=== PATIENT | male | born 1955 | race Caucasian/White ===

== ENCOUNTER 2020-05-13 08:02 | Outpatient (REF) | payer OTHER, SELFPAY ==
[2020-05-13 08:50] LABS: MANUAL DIFF FLAG NO
[2020-05-13 08:53] LABS: Basophils Absolute Auto 0.1 X10*3/uL (0.0-0.2); Basophils Percent Auto 0.8 % (0-2); Eosinophils Absolute Auto 0.1 X10*3/uL (0.0-0.4); Eosinophils Percent Auto 1.6 % (0-4); Hematocrit 40.5 % (42-52); Hemoglobin 13.4 g/dl (14.0-18.0); Imm Gran Abs Auto 0.02 X10*3/uL (0.00-0.03); Imm Gran Pct Auto 0.3 % (0.0-0.4); Lymphocytes Absolute Auto 1.5 X10*3/uL (1.2-4.9); Mean Corpuscular HGB Conc 33.1 g/dl (31.0-36.0); Mean Corpuscular Volume 90.8 fL (80-98); Mean Platelet Volume 8.8 fL (9.4-12.4); Monocytes Absolute Auto 0.5 X10*3/uL (0.1-1.2); Monocytes Percent Auto 7.4 % (2-11); Neutrophils Absolute Auto 4.2 X10*3/uL (2.0-8.3); Neutrophils Percent Auto 65.9 % (45-73); Platelet Count 255 X10*3/uL (160-400); Red Blood Count 4.46 X10*6/uL (4.60-5.80); Red Cell Distribution Width 13.3 % (11.0-16.0); White Blood Count 6.3 X10*3/uL (4.8-10.8)
[2020-05-13 09:18] LABS: Alanine Aminotransferase 24 U/L (0-40); Albumin Level 4.5 g/dL (3.5-5.0); Alkaline Phosphatase 61 U/L (39-117); Anion Gap 13 (12-20); Aspartate Amino Transferase 18 U/L (5-37); Bilirubin Total 0.8 mg/dL (0.0-1.0); Blood Urea Nitrogen 13 mg/dL (9-16); Calcium 9.2 mg/dL (8.4-10.2); Carbon Dioxide 29 mmol/L (22-29); Chloride 103 mmol/L (96-108); Cholesterol 164 mg/dL; Estimated Glomerular Filt Rate > 60; Glucose Fasting 98 mg/dL (60-99); HDL Cholesterol 51 mg/dL; LDL Cholesterol Calculated 83 mg/dl; Potassium 4.5 mmol/l (3.3-5.1); Sodium 140 mmol/L (135-145); Triglycerides 152 mg/dL
[2020-05-13 09:41] LABS: Prostate Specific Antigen Scr 3.89 ng/mL (<0.05-4.0); T4 Thyroxine 5.3 ug/dL (4.5-12.0)
[2020-05-13 09:54] LABS: Folate 17.3 ng/mL (> or = 4.0); Vitamin B12 496 pg/mL (200-900)
== END 2020-05-13 08:03 | disposition home or self-care (01) ==
LOC: HO.LAB 08:02
PROVIDERS: PCP Internal Medicine; Visit Provider Internal Medicine
DX: I10 Essential (primary) hypertension (principal); E78.00 Pure hypercholesterolemia, unspecified; R73.02 Impaired glucose tolerance (oral); D64.9 Anemia, unspecified
CPT/HCPCS: 36415; 80053; 80061; 82607; 82746; 84153; 84436; 84443; 85025

== ENCOUNTER 2021-05-15 08:36 | Outpatient (REF) | payer OTHER, SELFPAY ==
[2021-05-15 09:05] LABS: MANUAL DIFF FLAG NO
[2021-05-15 09:38] LABS: Basophils Percent Auto 0.6 % (0-2); Eosinophils Absolute Auto 0.1 X10*3/uL (0.0-0.4); Eosinophils Percent Auto 1.7 % (0-4); Hematocrit 40.2 % (42.0-52.0); Hemoglobin 13.2 g/dl (14.0-18.0); Imm Gran Abs Auto 0.02 X10*3/uL (0.00-0.03); Imm Gran Pct Auto 0.3 % (0.0-0.4); Lymphocytes Absolute Auto 2.1 X10*3/uL (1.2-4.9); Lymphocytes Percent Auto 30.1 % (20-40); Mean Corpuscular HGB Conc 32.8 g/dl (31.0-36.0); Mean Corpuscular Hemoglobin 29.6 pg (27.0-33.0); Mean Corpuscular Volume 90.1 fL (80.0-98.0); Mean Platelet Volume 8.9 fL (9.4-12.4); Monocytes Absolute Auto 0.7 X10*3/uL (0.1-1.2); Monocytes Percent Auto 9.7 % (2-11); Neutrophils Percent Auto 57.6 % (45-73); Platelet Count 262 X10*3/uL (160-400); Red Blood Count 4.46 X10*6/uL (4.60-5.80); Red Cell Distribution Width 13.3 % (11.0-16.0)
[2021-05-15 10:01] LABS: Alanine Aminotransferase 28 U/L (0-40); Albumin Level 4.5 g/dL (3.5-5.0); Alkaline Phosphatase 70 U/L (39-117); Anion Gap 12 (12-20); Aspartate Amino Transferase 26 U/L (5-37); Bilirubin Total 1.1 mg/dL (0.0-1.0); Blood Urea Nitrogen 13 mg/dL (9-16); Calcium 9.6 mg/dL (8.4-10.2); Carbon Dioxide 30 mmol/L (22-29); Chloride 101 mmol/L (96-108); Cholesterol 158 mg/dL; Estimated Glomerular Filt Rate > 60; Glucose Random 91 mg/dL (60-115); HDL Cholesterol 48 mg/dL; LDL Cholesterol Calculated 87 mg/dl; Potassium 4.6 mmol/L (3.3-5.1); Sodium 138 mmol/L (135-145); Total Protein 7.1 g/dL (6.5-8.0); Triglycerides 119 mg/dL
[2021-05-15 10:25] LABS: Free T4 (Free Thyroxine) 0.87 ng/dL (0.71-1.85); Prostate Specific Antigen Scr 5.55 ng/mL (<0.05-4.0); Thyroid Stimulating Hormone 1.83 uIU/mL (0.32-4.0)
[2021-05-15 10:35] LABS: Folate > 20.0 ng/mL (> or = 4.0); Vitamin B12 439 pg/mL (200-900)
== END 2021-05-15 08:37 | disposition home or self-care (01) ==
LOC: HO.LAB 08:36
PROVIDERS: PCP Internal Medicine; Visit Provider Internal Medicine
DX: Z12.5 Encounter for screening for malignant neoplasm of prostate (principal); E78.00 Pure hypercholesterolemia, unspecified; I10 Essential (primary) hypertension
CPT/HCPCS: 36415; 80053; 80061; 82607; 82746; 84153; 84439; 84443; 85025

== ENCOUNTER 2021-05-19 09:02 | Outpatient (REF) | payer OTHER, SELFPAY ==
[2021-05-19 10:45] LABS: PSA,Total (Free>4and<10) 5.05 ng/mL (0.00-4.00)
[2021-05-20 12:41] LABS: Free Prostate Spec Ag 0.4 ng/mL; Percent Free Prostate Spec Ag 9 % (calc) (>25); Prostate Specific Ag Total 4.5 ng/mL (< OR = 4.0)
== END 2021-05-19 09:03 | disposition home or self-care (01) ==
LOC: HO.LAB 09:02
PROVIDERS: PCP Internal Medicine; Visit Provider Internal Medicine
DX: L40.50 Arthropathic psoriasis, unspecified (principal)
CPT/HCPCS: 36415; 84153; 84154

== ENCOUNTER 2022-05-18 08:50 | Outpatient (REF) | payer MEDICARE, OTHER, SELFPAY ==
[2022-05-18 09:07] LABS: MANUAL DIFF FLAG NO
[2022-05-18 09:54] LABS: Basophils Absolute Auto 0.1 X10*3/uL (0.0-0.2); Basophils Percent Auto 0.7 % (0-2); Eosinophils Absolute Auto 0.2 X10*3/uL (0.0-0.4); Eosinophils Percent Auto 3.2 % (0-4); Hematocrit 40.6 % (42.0-52.0); Hemoglobin 13.4 g/dl (14.0-18.0); Imm Gran Abs Auto 0.04 X10*3/uL (0.00-0.03); Imm Gran Pct Auto 0.6 % (0.0-0.4); Lymphocytes Percent Auto 28.2 % (20-40); Mean Platelet Volume 8.9 fL (9.4-12.4); Monocytes Absolute Auto 0.6 X10*3/uL (0.1-1.2); Monocytes Percent Auto 7.8 % (2-11); Neutrophils Absolute Auto 4.2 x10*3/uL (2.0-8.3); Neutrophils Percent Auto 59.5 % (45-73); Platelet Count 271 X10*3/uL (160-400); Red Blood Count 4.46 X10*6/uL (4.60-5.80); Red Cell Distribution Width 13.4 % (11.0-16.0); White Blood Count 7.1 X10*3/uL (4.8-10.8)
[2022-05-18 11:38] LABS: Alanine Aminotransferase 40 U/L (0-40); Albumin Level 4.4 g/dL (3.5-5.0); Alkaline Phosphatase 68 U/L (39-117); Anion Gap 13 (12-20); Aspartate Amino Transferase 21 U/L (5-37); Bilirubin Total 0.7 mg/dL (0.0-1.0); Blood Urea Nitrogen 13 mg/dL (9-16); Calcium 9.3 mg/dL (8.4-10.2); Carbon Dioxide 29 mmol/L (22-29); Chloride 103 mmol/L (96-108); Cholesterol 198 mg/dL; Estimated Glomerular Filt Rate > 60; Free T4 (Free Thyroxine) 0.89 ng/dL (0.71-1.85); Glucose Random 91 mg/dL (60-115); HDL Cholesterol 47 mg/dL; LDL Cholesterol Calculated 109 mg/dl; Potassium 4.8 mmol/L (3.3-5.1); Prostate Specific Antigen Scr 5.24 ng/mL (<0.05-4.0); Sodium 140 mmol/L (135-145); Thyroid Stimulating Hormone 1.61 uIU/mL (0.32-4.0); Total Protein 6.9 g/dL (6.5-8.0); Triglycerides 211 mg/dL
[2022-05-18 11:49] LABS: Folate 15.1 ng/mL (> or = 4.0); Vitamin B12 444 pg/mL (200-900)
== END 2022-05-18 08:51 | disposition home or self-care (01) ==
LOC: HO.LAB 08:50
PROVIDERS: PCP Internal Medicine; Visit Provider Internal Medicine
DX: Z12.5 Encounter for screening for malignant neoplasm of prostate (principal); E78.00 Pure hypercholesterolemia, unspecified
CPT/HCPCS: 36415; 80053; 80061; 82607; 82746; 84153; 84439; 84443; 85025

== ENCOUNTER 2022-12-28 11:56 | Outpatient (REF) | payer MEDICARE, OTHER, SELFPAY ==
[2022-12-28 12:43] LABS: Basophils Percent Auto 0.5 % (0-2); Eosinophils Absolute Auto 0.1 X10*3/uL (0.0-0.4); Eosinophils Percent Auto 1.8 % (0-4); Hematocrit 43.7 % (42.0-52.0); Hemoglobin 14.1 g/dl (14.0-18.0); Imm Gran Abs Auto 0.03 X10*3/uL (0.00-0.03); Imm Gran Pct Auto 0.4 % (0.0-0.4); Immature Retic Fraction 16.1 % (2.3-13.4); Lymphocytes Absolute Auto 1.9 X10*3/uL (1.2-4.9); Lymphocytes Percent Auto 25.1 % (20-40); MANUAL DIFF FLAG SCAN; Mean Corpuscular HGB Conc 32.3 g/dl (31.0-36.0); Mean Corpuscular Hemoglobin 29.3 pg (27.0-33.0); Mean Corpuscular Volume 90.9 fL (80.0-98.0); Monocytes Absolute Auto 0.5 X10*3/uL (0.1-1.2); Monocytes Percent Auto 6.4 % (2-11); Neutrophils Absolute Auto 4.9 x10*3/uL (2.0-8.3); Neutrophils Percent Auto 65.8 % (45-73); PLT CLUMP 1; Red Blood Count 4.81 X10*6/uL (4.60-5.80); Red Cell Distribution Width 13.2 % (11.0-16.0); Retic HGB Equivalent 35.5 pg (30.0-35.0); Reticulocytes Absolute 0.049 X10*6/uL (0.026-0.095); SCAN SMEAR FLAG 1
[2022-12-28 12:55] LABS: RET ABN SCTR 1
[2022-12-28 13:30] LABS: SLIDE REVIEW VERIFIED
[2022-12-28 13:31] LABS: White Blood Count 7.4 X10*3/uL (4.8-10.8)
[2022-12-28 13:40] LABS: Alanine Aminotransferase 25 U/L (0-40); Albumin Level 4.6 g/dL (3.5-5.0); Alkaline Phosphatase 73 U/L (39-117); Anion Gap 13 (12-20); Aspartate Amino Transferase 19 U/L (5-37); Bilirubin Total 0.4 mg/dL (0.0-1.0); Blood Urea Nitrogen 11 mg/dL (9-16); Calcium 10.1 mg/dL (8.4-10.2); Carbon Dioxide 29 mmol/L (22-29); Chloride 103 mmol/L (96-108); Cholesterol 179 mg/dL; Estimated Glomerular Filt Rate > 60; Glucose Random 86 mg/dL (60-115); HDL Cholesterol 51 mg/dL; Iron 56 mcg/dL (45-160); LDL Cholesterol Calculated 100 mg/dl; Percent Iron Saturation 15 % (15-50); Potassium 4.2 mmol/L (3.3-5.1); Sodium 141 mmol/L (135-145); Total Iron Binding Capacity 374 mcg/dL (228-428); Total Protein 7.5 g/dL (6.5-8.0); Triglycerides 143 mg/dL; Unsaturated Iron Binding 318 ug/dL
[2022-12-28 13:53] LABS: Ferritin 29 ng/mL (20-250); Thyroid Stimulating Hormone 2.12 uIU/mL (0.32-4.0)
[2022-12-28 13:57] LABS: Folate 14.9 ng/mL (> or = 4.0); Vitamin B12 577 pg/mL (200-900)
== END 2022-12-28 11:57 | disposition home or self-care (01) ==
LOC: HO.LAB 11:56
PROVIDERS: PCP Internal Medicine; Visit Provider Internal Medicine
DX: I10 Essential (primary) hypertension (principal); E78.00 Pure hypercholesterolemia, unspecified; D64.9 Anemia, unspecified
CPT/HCPCS: 36415; 80053; 80061; 82607; 82728; 82746; 83540; 84439; 84443; 85025; 85045

== ENCOUNTER 2023-01-15 13:05 | Outpatient (AMB) | payer MEDICARE, OTHER, SELFPAY ==
[2023-01-15 13:37] VITALS: BP 148/70; PULSE 67; O2SAT 99; BMI 28.7
--- NOTE | 2023-01-15 13:37 | A.OFFPC_ITS ---
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 Required: No Allergies No Known Allergies Allergy (Verified 01/15/23 13:56) Medication List - Last Reconciled 01/15/23 by KALEIGH Leyva amoxicillin 500 mg PO Q8H ascorbic acid (vitamin C) 1 g PO DAILY atorvastatin 10 mg PO DAILY enalapril maleate 10 mg PO DAILY hydrochlorothiazide 12.5 mg PO DAILY osrzskyyqgfu-vmsf-vnsbi acid 18-400 mg-mcg (Centrum) 1 tab PO DAILY omega-3 fatty acids 1,000 mg PO DAILY psyllium husk (Metamucil) 0.4 grams PO BEDTIME Tobacco use date assessed: 01/15/23 Fall risk assessment: No Falls in past year Last assessed Fall Risk: 01/15/23 Dental Screening Dental Screen Date: 01/15/23 HPI sciatic nerve Pain On right Leg HPI Details Patient is a 67-year-old male presents today for an office visit due to right buttock pain that radiates down to his right anterior bah for the past [address] Contreras. Medical history significant for hypertension, hypercholesterolemia, osteoarthritis, prostate cancer-status post prostate removal surgery 09/2022-reports urinary incontinence after surgery. Patient reports that he worked physically about 1 month ago when he started with this right buttock pain. Presently pain 5/10 scale, pain worse with activity. He did use ice/heat packs and ibuprofen with mild improvement. Reports some numbness right anterior bah area. No fever or chills, no headache, no extremities weakness. [facility] Medical History Finger fracture, right Hypercholesterolemia Hypertension Nephrolithiasis Osteoarthritis Overweight (BMI 25.0-29.9) PSA elevation Surgical History History of tonsillectomy Family History Mother Bladder cancer Father Prostate cancer Social History Housing: House Alcohol intake: former Patient Tobacco Use Status: Never used Tobacco e-Cigarette/Vaping Use: Never Used Second Hand Smoke Exposure: No Current occupational status: employed Cognitive needs: No Hearing needs: No Vision needs: Yes Questionnaire PHQ-9 Over the last 2 weeks, how often have you been bothered by any of the following problems? 1. Little interest or pleasure in doing things: not at all 2. Feeling down, depressed, or hopeless: not at all 3. Trouble falling or staying asleep, or sleeping too much: not at all 4. Feeling tired or having little energy: not at all 5. Poor appetite or overeating: not at all 6. Feeling bad about yourself - or that you are a failure or have let yourself or your family down: not at all 7. Trouble concentrating on things, such as reading the newspaper or watching television: not at all 8. Moving or speaking so slowly that other people could have noticed. Or the opposite - being so fidgety or restless that you have been moving around a lot more than usual: not at all 9. Thoughts that you would be better off or of hurting yourself in some way: not at all Total score: 0 Depression Screening Interpretation: Negative 36682 - PHQ-9 Billing: Yes Source: Developed by Drs. Quirino Coats, Radha Reed, Bruno Reeves and colleagues, with an educational marleen from [employer]. Thrive Questionnaire Date Thrive assessed: 11/23/22 AUDIT C Alcohol Use Questionnaire (AUDIT-C) 1. How often do you have a drink containing alcohol?: Monthly or less 2. How many drinks containing alcohol do you have on a typical day when you are drinking?: 1 or 2 3. How often do you have six or more drinks on one occasion?: Never Total Score: 1 Score Reviewed/Action Taken: No TIANNA-7 AMB Questionnaire TIANNA-7 Date TIANNA - 7 assessed: 11/23/22 Feeling nervous, anxious, or on edge: 0 = Not at all Not being able to stop or control worryin = Not at all Worrying too much about different things: 0 = Not at all Trouble relaxin = Not at all Being so restless that it is hard to sit still: 0 = Not at all Becoming easily annoyed or irritable: 0 = Not at all Feeling afraid as if something awful might happen: 0 = Not at all Total TIANNA-7 score (0-4 normal; 5-9 mild; 10-14 moderate; 15-21 severe): 0 Source: Developed by Drs. Quirino Coats, Radha Reed, Bruno Reeves and colleagues, with an educational marleen from [employer]. TIANNA-7 Assessment Billing TIANNA-7 Assessment Tool: TIANNA-7 Assessment 85911 Review of Systems Const Denies body aches, Denies chills, Denies fever(s) and Denies headache(s) Eyes Denies change in vision ENT Denies dizziness, Denies otalgia, Denies headache(s), Denies nasal discharge, Denies sinus pain and Denies sore throat Card Denies chest pain, Denies edema, Denies lightheadedness and Denies dyspnea Resp Denies cough, Denies dyspnea and Denies wheezing GI Denies constipation, Denies diarrhea, Denies nausea and Denies vomiting Denies dysuria and Reports urinary incontinence (Since 09/2022) Musc Reports back pain, Denies myalgias, Denies arthralgias, Denies joint swelling, Reports numbness and Denies tingling Skin/Breast Denies rash Neuro Denies dizziness, Denies headache(s), Reports numbness and Denies tingling Aller/Immun Denies wheezing Physical exam (Primary Care) Vital Signs: Last Vital Signs Pulse 67 01/15/23 13:37 BP 148/70 H 01/15/23 13:37 Pulse Ox 99 01/15/23 13:37 Oxygen Delivery Method Room Air 01/15/23 13:37 BMI result Body Mass Index 28.7 Tobacco/Smoking Status: Tobacco use Status Tobacco use date assessed 01/15/23 01/15/23 13:39 Patient Tobacco Use Status Never used Tobacco 01/15/23 13:39 e-Cigarette/Vaping Use Never Used 01/15/23 13:39 PHQ-9: PHQ-9 Score PHQ-9: Total score 0 01/15/23 13:47 Depression Screening Interpretation: Negative Thrive Assessment: Date of Thrive Assessment Date Thrive assessed 11/23/22 01/15/23 13:39 Const General: cooperative and no acute distress Orientation/consciousness: patient oriented x3 HENMT Head: Yes normocephalic and Yes atraumatic Mouth: oropharynx normal and moist mucous membranes Throat: Yes posterior oropharynx normal Eyes General: appearance normal, both eyes and all related structures Pupils: Equal, round and reactive pupils present Neck Neck: Yes normal visual inspection and Yes full ROM Resp Effort & Inspection: normal respiratory effort and able to speak in complete sentences Auscultation: clear to auscultation bilaterally, no crackles, no rales, no rhonchi and no wheezes Cardio Rate: regular rate Rhythm: regular rhythm Heart sounds: S1 normal heart sound present and S2 normal heart sound present GI Auscultation: normal bowel sounds General: No CVA tenderness Back/Spine/Pelvis Back: No CVA tenderness Thoracic/Lumbar Spine: thoraco-lumbar ROM normal, No paraspinal muscle tenderness, No thoracic spinal tenderness, No lumbar spinal tenderness and straight leg raise positive (Right) Pelvis: no buttock tenderness Skin General skin exam: no rashes or lesions noted Neuro General: patient oriented x3 and CN's II-XI intact bilaterally Cranial nerves: Yes Equal, round and reactive pupils present Gait exam (Neuro): Normal gait present Extrem General: Yes full ROM and No edema Assessment and Plan Assessment & Plan (1) Sciatica, right side: Code(s): M54.31 - Sciatica, right side Plan: Suspect sciatica of right side, will treat with ibuprofen t.i.d. p.r.n. and cyclobenzaprine t.i.d. p.r.n.-educated about drowsiness. Will refer to physical therapy. Patient is to continue ice/heat packs p.r.n.. Signs and symptoms reviewed when to notify provider go to the emergency department. Patient agreed with the plan. Follow-up if no improvement after physical therapy. Orders: Orders PT Evaluation and Treatment Today M54.31 - Sciatica, right side Medications: New ibuprofen 400 mg PO Q8H PRN 20 tabs 0RF pain M54.31 - Sciatica, right side cyclobenzaprine 5 mg PO TID PRN 14 tabs 0RF muscle spasm M54.31 - Sciatica, right side Coding Level of Care Code Est Pt Level 3 (14266) Diagnoses Sciatica, right side M54.31 Additional Codes TIANNA-7 Assessment Billing - TIANNA-7 Assessment Tool: TIANNA-7 Assessment [id number] ([id number])
== END 2023-01-15 14:06 | disposition home or self-care (01) ==
PROVIDERS: PCP Internal Medicine; Visit Provider Nurse Practitioner Family
DX: M54.31 Sciatica, right side (principal)
CPT/HCPCS: 99213

== ENCOUNTER 2023-02-25 10:00 | Outpatient (RCR) | payer MEDICARE, OTHER, SELFPAY ==
--- NOTE | 2023-01-28 11:29 | MHC.PT.EP ---
[facility] [place] Office [place] Office [place] Office [address] Brittney Bundy [address] [phone] F: [phone] F: [phone] F: [phone] F: [phone] Physical Therapy Plan of Care Date of Evaluation: Date of Surgery: Diagnosis: sciatica R side Assessment: 67 y/o male referred to PT with R-sided sciatica. Of note, he underwent radical prostatectomy 09/2022 and had 2 weeks of rest with then gradual return to activity. S/s consistent with lumbar derangement and ? 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 Recommend PT 2x/week for 5 week sto address impairments, implement HEP, and optimize functional mobility. Frequency and Duration: The patient will be seen 2x/week for 5 weeks Short Term Goals: 3 weeks Compliant with HEP Pt will improve lumbar AROM to WNL to facilitate ADL's Container Maker Goals: 5 weeks I with HEP and self management of sx Pt will be able to walk > 20 min with pain < 3/10 Pt will be able to stand > 20min with pain < 3/10 Treatment Plan: Modalities to reduce pain, spasms and effusion. Manual therapy to restore motion and function. Therapeutic exercise to improve strength and flexibility. Neuromuscular re-education for posture and balance. Therapeutic activities to return to functional activities of daily living. Electronically signed by: Anita Aponte PT Please sign and return to therapist. Thank you for your referral.
--- NOTE | 2023-02-25 12:41 | MHC.PT.DC ---
[facility] [place] Office [place] Office [place] Office [address] Brittney Bundy [address] [phone] F: [phone] F: [phone] F: [phone] F: [phone] Physical Therapy Discharge Report Diagnosis: sciatica R side Date of Surgery: Date of Evaluation: 01/28/23 Date of Discharge: 02/25/23 Treatments to Date: 9 Cancellations to Date: 0 No Shows to Date: 0 Discharge Status: Achieved Goals Improved Function Independent with HEP Discharge Summary: Pt reports being able to take 4 flights of stairs to get to PT now. He reports no longer having pain and is able to walk, stand, mow the lawn, and other ADL's. He is I with HEP and is appropriate for d/c secondary to meeting all goals, I with HEP, and improved functional mobility. No further questions at this time. Electronically signed by: Anita Aponte PT Please sign and return to therapist. Thank you for your referral.
== END 2023-02-25 12:41 | disposition home or self-care (01) ==
LOC: HO.PT 10:00
PROVIDERS: PCP Internal Medicine; Visit Provider Nurse Practitioner Family
DX: M54.31 Sciatica, right side (principal)
CPT/HCPCS: 97110; 97112; 97161; 97530

== ENCOUNTER 2023-05-28 08:29 | Outpatient (AMB) | payer MEDICARE, OTHER, SELFPAY ==
--- NOTE | 2023-05-28 08:59 | MHC.PC.OV ---
Vital Signs 05/28/23 09:00 Height 5 ft 10 in Weight 209 lb 2 oz BMI 30.0 BP 128/72 Blood Pressure Location Lt brachial Position Sitting Respiration 17 Pulse 80 Pulse Source Palpation Intake Visit Reasons: Annual Exam Intake Note: Patient is here today for a physical. 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: No Accompanied by: Self / Same As Patient Allergies No Known Allergies Allergy (Verified 05/28/23 09:02) Medication List - Last Reconciled 05/28/23 by Raghu Contreras MD ascorbic acid (vitamin C) 1 g PO DAILY atorvastatin 10 mg PO DAILY enalapril maleate 10 mg PO DAILY hydrochlorothiazide 12.5 mg PO DAILY wbfbqhbtqjxj-awpw-dtvml acid 18-400 mg-mcg (Centrum) 1 tab PO DAILY omega-3 fatty acids 1,000 mg PO DAILY psyllium husk (Metamucil) 0.4 grams PO BEDTIME Tobacco use date assessed: 01/15/23 Fall risk assessment: No Falls in past year Last assessed Fall Risk: 05/28/23 Dental Screening Dental Screen Date: 05/28/23 Did you have a dental visit in the last 12 months?: Yes Did you have a dental problem in the last 6 months where you did not have access to dental care?: No Was dental information given to patient?: Patient has dentist HPI Annual Exam HPI Details 67-year-old obese male with a history of prostate cancer hypertension hypercholesterolemia last seen in November 2022 coming in for physical exam. Colonoscopy last done in February 2019. Review of the notes had COVID flu and RSV shots. Patient was seen by the nurse practitioner in January 2023 for sciatic nerve on the right leg sent for physical therapy and was given anti-inflammatory and muscle relaxer. back is better. has incontinence from the procedure but better [facility] Medical History Finger fracture, right Hypercholesterolemia Hypertension Nephrolithiasis Osteoarthritis Overweight (BMI 25.0-29.9) PSA elevation Surgical History History of tonsillectomy Family History Mother Bladder cancer Father Prostate cancer Social History Housing: House Alcohol intake: former Patient Tobacco Use Status: Never used Tobacco e-Cigarette/Vaping Use: Never Used Second Hand Smoke Exposure: No Current occupational status: employed Cognitive needs: No Hearing needs: No Vision needs: Yes Questionnaire Thrive Questionnaire Date Thrive assessed: 11/23/22 TIANNA-7 AMB Questionnaire TIANNA-7 Date TIANNA - 7 assessed: 11/23/22 Source: Developed by Drs. Quirino Coats, Radha Reed, Bruno Reeves and colleagues, with an educational marleen from [employer]. Review of Systems Const Denies poor appetite and Denies weakness Eyes Denies no additional complaints ENT Reports Normal hearing present, Denies dizziness, Denies nasal congestion, Denies tinnitus and Denies sore throat Card Denies chest pain, Denies syncope, Denies rapid heart rate and Denies dyspnea Resp Denies cough and Denies dyspnea GI Denies change in stool character, Reports constipation, Denies diarrhea, Denies nausea and Denies vomiting Denies dysuria and Denies urinary frequency Neuro Reports Normal hearing present, Denies confusion, Denies dizziness, Denies syncope and Denies weakness Psych Denies confusion Physical exam (Primary Care) Vital Signs: Last Vital Signs Pulse 80 05/28/23 09:00 Resp 17 05/28/23 09:00 BP 128/72 05/28/23 09:00 BMI result Body Mass Index 30.0 Tobacco/Smoking Status: Tobacco use Status Tobacco use date assessed 01/15/23 05/28/23 09:01 Patient Tobacco Use Status Never used Tobacco 05/28/23 09:01 e-Cigarette/Vaping Use Never Used 05/28/23 09:01 Thrive Assessment: Date of Thrive Assessment Date Thrive assessed 11/23/22 05/28/23 09:01 Const General: No confusion Orientation/consciousness: No confusion HENMT Head: Yes normocephalic Ears: external ears normal and TM's normal bilaterally Face and sinus: Yes normal facial exam Mouth: moist mucous membranes Throat: Yes tonsils normal Eyes Conjunctivae: conjunctivae normal Pupils: Equal, round and reactive pupils present and Pupil accommodation reflex normal Direct Ophthalmoscopy: normal light reflex Neck Neck: No lymphadenopathy Thyroid: Thyroid normal Chest Chest palpation & inspection: normal inspection of the chest Resp Effort & Inspection: normal respiratory effort and no audible wheezes Auscultation: clear to auscultation bilaterally, no crackles, no wheezes and lung sounds not diminished Cardio Rate: regular rate Rhythm: regular rhythm Peripheral pulses: radial pulses present and dorsalis pedis present GI Palpation (GI): no masses Auscultation: normal bowel sounds and normoactive bowel sounds Rectal Exam - Male: Yes deferred Skin General skin exam: no rashes or lesions noted Rashes: no rashes Neuro General: No confusion Cranial nerves: Yes Equal, round and reactive pupils present and Yes Normal hearing present Cognition (Neuro): normal cognition Gait exam (Neuro): Normal gait present Motor exam (neuro): 5/5 motor strength present throughout Deep tendon reflexes (DTR's): Right brachioradialis reflex intensity grade: 2+, Left brachioradialis reflex intensity grade: 2+, Right patellar reflex intensity grade: 2+ and Left patellar reflex intensity grade: 2+ Extrem General: No edema Assessment and Plan Assessment & Plan (1) Annual physical exam: Code(s): Z00.00 - Encounter for general adult medical examination without abnormal findings (2) Prostate cancer: Comment: March 2022, RALP 09/2022 Code(s): C61 - Malignant neoplasm of prostate Plan: Continue to follow-up with Urology (3) Hypertension: Code(s): I10 - Essential (primary) hypertension Qualifiers: Hypertension type: essential hypertension Qualified Code(s): I10 - Essential (primary) hypertension Plan: Continue with blood pressure medication. Decrease salt intake and exercise patient is on hydrochlorothiazide 12.5 mg once a day enalapril 10 mg once a day (4) Hypercholesterolemia: Code(s): E78.00 - Pure hypercholesterolemia, unspecified Plan: Avoid fried foods, chicken skin, eggs, butter margarine, pastries and meat. Be it pork or beef they have a lot of cholesterol LDL goal of less than 130 and triglyceride of Less than 150 patient on atorvastatin 10 mg once a day (5) Overweight (BMI 25.0-29.9): Code(s): E66.3 - Overweight Plan: Diet and exercise (6) Sciatica, right side: Code(s): M54.31 - Sciatica, right side Orders: Orders Complete Blood Count Auto Diff Today C61 - Malignant neoplasm of prostate Comprehensive Met. Panel Today C61 - Malignant neoplasm of prostate Free T4 (Free Thyroxine) Today E78.00 - Pure hypercholesterolemia, unspecified Vitamin B12 and Folate Today E78.00 - Pure hypercholesterolemia, unspecified PSA,Total (Free>4and<10) Today C61 - Malignant neoplasm of prostate Thyroid Stimulating Hormone Today E78.00 - Pure hypercholesterolemia, unspecified Lipid Panel Today E78.00 - Pure hypercholesterolemia, unspecified Coding Level of Care Code Est Pt Prev Care >65y(51239) Diagnoses Annual physical exam Z00.00 Prostate cancer C61 Essential hypertension I10 Hypertension type: essential hypertension Hypercholesterolemia E78.00 Overweight (BMI 25.0-29.9) E66.3 Sciatica, right side M54.31
[2023-05-28 09:00] VITALS: BP 128/72; PULSE 80; RESP 17
== END 2023-05-28 09:48 | disposition home or self-care (01) ==
PROVIDERS: Visit Provider Internal Medicine
DX: Z00.00 Encounter for general adult medical examination without abnormal findings (principal); C61 Malignant neoplasm of prostate; I10 Essential (primary) hypertension; E78.00 Pure hypercholesterolemia, unspecified; E66.3 Overweight; M54.31 Sciatica, right side
CPT/HCPCS: 99397

== ENCOUNTER 2023-11-29 09:33 | Outpatient (REF) | payer MEDICARE, OTHER, SELFPAY ==
[2023-11-29 09:47] LABS: MANUAL DIFF FLAG NO
[2023-11-29 10:42] LABS: Basophils Percent Auto 0.6 % (0-2); Eosinophils Absolute Auto 0.1 X10*3/uL (0.0-0.4); Eosinophils Percent Auto 2.1 % (0-4); Hematocrit 40.2 % (42.0-52.0); Hemoglobin 13.2 g/dl (14.0-18.0); Imm Gran Abs Auto 0.03 X10*3/uL (0.00-0.03); Imm Gran Pct Auto 0.5 % (0.0-0.4); Lymphocytes Absolute Auto 1.7 X10*3/uL (1.2-4.9); Lymphocytes Percent Auto 26.9 % (20-40); Mean Corpuscular HGB Conc 32.8 g/dl (31.0-36.0); Mean Corpuscular Hemoglobin 29.7 pg (27.0-33.0); Mean Corpuscular Volume 90.5 fL (80.0-98.0); Mean Platelet Volume 8.7 fL (9.4-12.4); Monocytes Absolute Auto 0.5 X10*3/uL (0.1-1.2); Monocytes Percent Auto 7.3 % (2-11); Neutrophils Absolute Auto 3.9 x10*3/uL (2.0-8.3); Neutrophils Percent Auto 62.6 % (45-73); Platelet Count 272 X10*3/uL (160-400); Red Blood Count 4.44 X10*6/uL (4.60-5.80); Red Cell Distribution Width 13.8 % (11.0-16.0); White Blood Count 6.2 X10*3/uL (4.8-10.8)
[2023-11-29 11:19] LABS: Alanine Aminotransferase 54 U/L (0-40); Albumin Level 4.3 g/dL (3.5-5.0); Alkaline Phosphatase 67 U/L (39-117); Anion Gap 12 (12-20); Aspartate Amino Transferase 33 U/L (5-37); Bilirubin Total 0.4 mg/dL (0.0-1.0); Blood Urea Nitrogen 13 mg/dL (9-16); Calcium 9.4 mg/dL (8.4-10.2); Carbon Dioxide 30 mmol/L (22-29); Chloride 103 mmol/L (96-108); Cholesterol 179 mg/dL (<200); Estimated Glomerular Filt Rate > 60; Glucose Random 89 mg/dL (60-115); HDL Cholesterol 47 mg/dL (>40); LDL Cholesterol Calculated 90 mg/dL (<100); Potassium 4.1 mmol/L (3.3-5.1); Sodium 141 mmol/L (135-145); Total Protein 7.1 g/dL (6.5-8.0); Triglycerides 214 mg/dL (<150)
[2023-11-29 11:27] LABS: PSA,Total (Free>4and<10) < 0.10 ng/mL (0.00-4.00)
[2023-11-29 11:30] LABS: Free T4 (Free Thyroxine) 0.76 ng/dL (0.71-1.85)
[2023-11-29 11:38] LABS: Folate 13.7 ng/mL (> or = 4.0); Vitamin B12 554 pg/mL (200-900)
== END 2023-11-29 09:34 | disposition home or self-care (01) ==
LOC: HO.LAB 09:33
PROVIDERS: PCP Internal Medicine; Visit Provider Internal Medicine
DX: E78.00 Pure hypercholesterolemia, unspecified (principal); C61 Malignant neoplasm of prostate; Z12.5 Encounter for screening for malignant neoplasm of prostate
CPT/HCPCS: 36415; 80053; 80061; 82607; 82746; 84153; 84439; 84443; 85025

== ENCOUNTER 2023-12-10 08:24 | Outpatient (AMB) | payer MEDICARE, OTHER, SELFPAY ==
[2023-12-10 08:33] VITALS: BP 138/72; PULSE 72; O2SAT 98; BMI 30.6
--- NOTE | 2023-12-10 08:33 | MHC.PC.OV ---
Vital Signs 12/10/23 08:33 Height 5 ft 10 in Weight 213 lb 0.4 oz BMI 30.6 BP 138/72 Blood Pressure Location Lt brachial Position Sitting Pulse 72 Pulse Source Pulse Oximeter Pulse Oximetry (%) 98 Oxygen Delivery Method Room Air Intake Visit Reasons: HTN, Cholesterol Allergies No Known Allergies Allergy (Verified 12/10/23 08:34) Tobacco use date assessed: 12/10/23 Fall risk assessment: No Falls in past year Last assessed Fall Risk: 12/10/23 Dental Screening Dental Screen Date: 12/10/23 Did you have a dental visit in the last 12 months?: Yes Did you have a dental problem in the last 6 months where you did not have access to dental care?: No Was dental information given to patient?: Patient has dentist HPI HTN, Cholesterol HPI Details 68-year-old obese male with prostate cancer with HTN, Cholesterol, last seen 05/2023 coming in for follow up. 6 days ago noted a mass on the R groin deny fall or trauma , no urianry symptoms. [facility] Medical History Finger fracture, right Hypercholesterolemia Hypertension Nephrolithiasis Osteoarthritis Overweight (BMI 25.0-29.9) PSA elevation Surgical History History of tonsillectomy Family History Mother Bladder cancer Father Prostate cancer Social History Housing: House Alcohol intake: former Patient Tobacco Use Status: Never used Tobacco e-Cigarette/Vaping Use: Never Used Second Hand Smoke Exposure: No Current occupational status: employed Cognitive needs: No Hearing needs: No Vision needs: Yes Questionnaire PHQ-9 Over the last 2 weeks, how often have you been bothered by any of the following problems? 1. Little interest or pleasure in doing things: not at all 2. Feeling down, depressed, or hopeless: not at all 3. Trouble falling or staying asleep, or sleeping too much: not at all 4. Feeling tired or having little energy: not at all 5. Poor appetite or overeating: not at all 6. Feeling bad about yourself - or that you are a failure or have let yourself or your family down: not at all 7. Trouble concentrating on things, such as reading the newspaper or watching television: not at all 8. Moving or speaking so slowly that other people could have noticed. Or the opposite - being so fidgety or restless that you have been moving around a lot more than usual: not at all 9. Thoughts that you would be better off or of hurting yourself in some way: not at all Total score: 0 Depression Screening Interpretation: Negative Depression Screening Done: Yes 36538 - PHQ-9 Billing: Yes Source: Developed by Drs. Quirino Coats, Bruno Alexis and colleagues, with an educational marleen from [employer]. Thrive Questionnaire Date Thrive assessed: 11/23/22 AUDIT C Alcohol Use Questionnaire (AUDIT-C) 1. How often do you have a drink containing alcohol?: Monthly or less 2. How many drinks containing alcohol do you have on a typical day when you are drinking?: 1 or 2 3. How often do you have six or more drinks on one occasion?: Never Total Score: 1 Score Reviewed/Action Taken: No TIANNA-7 AMB Questionnaire TIANNA-7 Date TIANNA - 7 assessed: 12/10/23 Feeling nervous, anxious, or on edge: 0 = Not at all Not being able to stop or control worryin = Not at all Worrying too much about different things: 0 = Not at all Trouble relaxin = Not at all Being so restless that it is hard to sit still: 0 = Not at all Becoming easily annoyed or irritable: 0 = Not at all Feeling afraid as if something awful might happen: 0 = Not at all Total TIANNA-7 score (0-4 normal; 5-9 mild; 10-14 moderate; 15-21 severe): 0 Source: Developed by Drs. Quirino Coats, Bruno Alexis and colleagues, with an educational marleen from [employer]. TIANNA-7 Assessment Billing TIANNA-7 Assessment Tool: TIANNA-7 Assessment 72692 Physical exam (Primary Care) Vital Signs: Last Vital Signs Pulse 72 12/10/23 08:33 BP 138/72 12/10/23 08:33 Pulse Ox 98 12/10/23 08:33 Oxygen Delivery Method Room Air 12/10/23 08:33 BMI result Body Mass Index 30.6 Tobacco/Smoking Status: Tobacco use Status Tobacco use date assessed 12/10/23 12/10/23 08:37 Patient Tobacco Use Status Never used Tobacco 12/10/23 08:37 e-Cigarette/Vaping Use Never Used 12/10/23 08:37 PHQ-9: PHQ-9 Score PHQ-9: Total score 0 12/10/23 08:37 Depression Screening Interpretation: Negative Thrive Assessment: Date of Thrive Assessment Date Thrive assessed 11/23/22 12/10/23 08:37 Const General: alert; No acute distress Eyes Conjunctivae: conjunctivae normal Resp Auscultation: clear to auscultation bilaterally Cardio Rate: regular rate Rhythm: regular rhythm GI Inspection: Yes normal to inspection Abdomen image: 1. 3 by 4 cm below the groin line mass , non tender irregular shaped mass Extrem General: Yes normal to inspection and No edema Assessment and Plan Assessment & Plan (1) Obesity (BMI 30.0-34.9): Code(s): E66.9 - Obesity, unspecified Plan: Diet and exercise (2) Hypertension: Code(s): I10 - Essential (primary) hypertension Qualifiers: Hypertension type: essential hypertension Qualified Code(s): I10 - Essential (primary) hypertension Plan: Continue with blood pressure medication. Decrease salt intake and exercise on enalapril 10 mg once a day hydrochlorothiazide 12.5 mg once a day (3) Hypercholesterolemia: Code(s): E78.00 - Pure hypercholesterolemia, unspecified Plan: Avoid fried foods, chicken skin, eggs, butter margarine, pastries and meat. Be it pork or beef they have a lot of cholesterol (4) Prostate cancer: Comment: March 2022, RALP 09/2022 Code(s): C61 - Malignant neoplasm of prostate Plan: Continue to follow-up with urology (5) Tubular adenoma of colon: Code(s): D12.6 - Benign neoplasm of colon, unspecified (6) Right groin mass: Code(s): R19.09 - Other intra-abdominal and pelvic swelling, mass and lump Plan: will refer to the surgeon Orders: Referrals General Surgery Referral R19.09 - Other intra-abdominal and pelvic swelling, mass and lump Gastroenterology Referral D12.6 - Benign neoplasm of colon, unspecified Coding Level of Care Code Est Pt Level 4 (78449) Diagnoses Obesity (BMI 30.0-34.9) E66.9 Essential hypertension I10 Hypertension type: essential hypertension Hypercholesterolemia E78.00 Prostate cancer C61 Tubular adenoma of colon D12.6 Right groin mass R19.09 Additional Codes TIANNA-7 Assessment Billing - TIANNA-7 Assessment Tool: TIANNA-7 Assessment [id number] ([id number])
== END 2023-12-10 09:19 | disposition home or self-care (01) ==
PROVIDERS: PCP Internal Medicine; Visit Provider Internal Medicine
DX: I10 Essential (primary) hypertension (principal); C61 Malignant neoplasm of prostate; E66.9 Obesity, unspecified; Z68.30 Body mass index [BMI] 30.0-30.9, adult; E78.00 Pure hypercholesterolemia, unspecified; D12.6 Benign neoplasm of colon, unspecified; R19.09 Other intra-abdominal and pelvic swelling, mass and lump
CPT/HCPCS: 99214

== ENCOUNTER 2023-12-27 07:56 | Outpatient (AMB) | payer MEDICARE, OTHER, SELFPAY ==
--- NOTE | 2023-12-27 08:09 | A.OFFVIS_ITS ---
Vital Signs 12/27/23 08:12 Height 5 ft 10 in Weight 214 lb BMI 30.7 BP 146/72 H Blood Pressure Location Rt brachial Position Sitting Pulse 74 Intake Visit Reasons: Intra-abdominal &pelvic swelling ? mass Intake Note: Patient referred by pcp Dr. Contreras for mass on Rt upper groin. First noticed 1m ago. Patient c/o: mild tenderness. Denies prior trauma. 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 Was incidental finding. He has no symptoms from it at present. Denies any fever, chills, night sweats, weight loss. He has no such masses elsewhere. Chart was reviewed and patient evaluated. Patient is status post robotic prostate surgery approximately year and a half ago. [facility] Medical History PSA elevation Overweight (BMI 25.0-29.9) Finger fracture, right Nephrolithiasis Osteoarthritis Hypercholesterolemia Hypertension Surgical History History of tonsillectomy Family History Mother Bladder cancer Father Prostate cancer Social History Housing: House Alcohol intake: former Patient Tobacco Use Status: Never used Tobacco e-Cigarette/Vaping Use: Never Used Second Hand Smoke Exposure: No Current occupational status: employed Cognitive needs: No Hearing needs: No Vision needs: Yes Physical Exam Vital Signs: Last Vital Signs Pulse 74 12/27/23 08:12 BP 146/72 H 12/27/23 08:12 BMI result Body Mass Index 30.7 GI Other: Patient is abdomen is examined standing with Valsalva. Corpulent abdomen. Prostatectomy scar is well healed. No evidence of any umbilical or groin hernias. Genitalia grossly within normal limits. Skin Other: No obvious periclavicular, cervical, or axillary adenopathy bilaterally. Extrem Other: Over the femoral triangle, patient has a deep soft tissue mass measuring approximately 5 x 4 cm, firm, not adhered to the overlying skin but appeared to be adherent to the underlying soft tissues. No overlying skin changes. Assessment & Plan Assessment & Plan (1) Right groin mass: Code(s): R19.09 - Other intra-abdominal and pelvic swelling, mass and lump Category: Surgical Plan Current plan is to arrange for an MRI of this area and direct further therapy based on the results. This can range from eating from a collection of lymph nodes to a sarcoma. This was briefly reviewed with the patient. Further interventions studies will be directed by the above-mentioned study. All questions answered. Orders: Orders MR angio LE RT wo/w con Today R19.09 - Other intra-abdominal and pelvic swelling, mass and lump Coding Level of Care Code New Pt Level 4 (31566) Diagnoses Right groin mass R19.09
[2023-12-27 08:12] VITALS: BP 146/72; PULSE 74; BMI 30.7
== END 2023-12-27 08:17 | disposition home or self-care (01) ==
PROVIDERS: PCP Internal Medicine; Referring Provider Internal Medicine; Visit Provider Surgery
DX: R19.09 Other intra-abdominal and pelvic swelling, mass and lump (principal)
CPT/HCPCS: 99203

== ENCOUNTER → 2023-12-27 07:56 | Outpatient (BNVA) | payer MEDICARE, OTHER, SELFPAY | PROVIDERS: PCP Internal Medicine; Referring Provider Internal Medicine; Visit Provider Surgery | DX: R19.09 Other intra-abdominal and pelvic swelling, mass and lump (principal) | CPT/HCPCS: 99202 ==

== ENCOUNTER 2024-01-31 09:27 | Outpatient (REF) | payer MEDICARE, OTHER, SELFPAY ==
--- NOTE | ~2024-01-31 | MR_ITS ---
EXAMINATION: MR PELVIS WITHOUT AND WITH CONTRAST CLINICAL INFORMATION: Status post prostatectomy in 2022, now complains of left inguinal discomfort and palpable lump COMPARISON: CT scan of abdomen and pelvis on 08/05/2011 TECHNIQUE: Examination was performed in a high field strength MRI scanner. Pre-contrast multiplanar multisequence MR imaging of the pelvis was performed without IV contrast enhancement. Post-contrast coronal, axial and sagittal T1 weighted fat suppressed images of the pelvis were obtained after IV injection of 10 mL Gadavist. FINDINGS: Seminal vesicles and prostate gland are surgically absent. No focal bosselation could be seen at the urethrovesical anastomosis. Markedly enlarged enhancing clustered medial right inguinal lymph nodes are partially visualized, measuring up to 3.8 cm in AP diameter, 4.2 cm in width in the largest inferior right inguinal lymph node. The surrounding right inguinal subcutaneous tissue shows extensive T2 hyperintense and enhancing soft tissue stranding. Urinary bladder is well filled with urine. Pelvic fat plane is clean. No pelvic ascites is seen. No abnormally enlarged iliac or inguinal lymph nodes are found. The pelvis and bilateral hips are intact. Bilateral femoral heads and necks show normal signal without focal lesion. No abnormal joint effusion can be seen. The visualized bony pelvis show normal signal. Bilateral sacroiliac joints also appear unremarkable. There is interval appearance of 1.3 cm right upper renal pole simple cyst and larger 2.4 cm right lower medial renal pole simple cyst, for which no follow-up imaging is recommended. Normal appendix is seen projecting medial and inferior to the cecum. Multiple diverticula are seen in the sigmoid colon without inflammatory changes. There is mild fecal distention of distal sigmoid colon and rectum. MR/MR pelvis wo/w con IMPRESSION: 1. Status post prostatectomy. No recurrent tumor could be seen. 2. Velocities right inguinal lymphadenopathy. The surrounding right inguinal subcutaneous tissue shows extensive T2 hyperintense and enhancing soft tissue stranding. Findings are concerning for metastatic disease, reactive lymphadenopathy or infective lymphadenitis. 3. Sigmoid diverticulosis without inflammatory changes. 4. Interval appearance of right renal simple cysts, for which no follow-up imaging is recommended. Electronically signed by: Guadalupe Ji MD 02/09/2024 03:27 PM EDT
[2024-01-31] MEDS: gadobutroL 10 ML VIAL IVPUSH (10:35)
== END 2024-01-31 09:28 | disposition home or self-care (01) ==
LOC: HO.MRI 09:27
PROVIDERS: PCP Internal Medicine; Visit Provider Surgery
DX: R19.09 Other intra-abdominal and pelvic swelling, mass and lump (principal)
CPT/HCPCS: 72197; A9585

== ENCOUNTER 2024-02-08 08:43 | Outpatient (AMB) | payer MEDICARE, OTHER, SELFPAY ==
[2024-02-08 08:51] VITALS: BP 132/73; PULSE 70; BMI 30.1
--- NOTE | 2024-02-08 08:51 | A.OFFVIS_ITS ---
Vital Signs 02/08/24 08:51 Height 5 ft 10 in Weight 210 lb BMI 30.1 BP 132/73 Blood Pressure Location Rt brachial Position Sitting Pulse 70 Intake Visit Reasons: MRI results Intake Note: Patient here to discuss MRI results. Pelvis MRI 01-31-24. 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 MRI was done on 01/30 but is still not read.. Patient has no new issues or complaint [facility] Medical History PSA elevation Overweight (BMI 25.0-29.9) Finger fracture, right Nephrolithiasis Osteoarthritis Hypercholesterolemia Hypertension Surgical History History of tonsillectomy Family History Mother Bladder cancer Father Prostate cancer Social History Housing: House Alcohol intake: former Patient Tobacco Use Status: Never used Tobacco e-Cigarette/Vaping Use: Never Used Second Hand Smoke Exposure: No Current occupational status: employed Cognitive needs: No Hearing needs: No Vision needs: Yes Physical Exam Vital Signs: Last Vital Signs Pulse 70 02/08/24 08:51 BP 132/73 02/08/24 08:51 BMI result Body Mass Index 30.1 Extrem Other: Right upper inner thigh soft tissue mass status quo. Office Procedures FNA Biopsy FNA Biopsy Details: Risks, benefits alternatives of fine-needle aspiration of right groin mass were reviewed with the patient and included but not limited to bleeding, infection, non diagnosis, numbness, pain, scarring the patient wished to proceed. All questions answered. After appropriate positioning, patient underwent Betadine prep and uneventful multiple passes with 18 gauge needle with saline with good specimen retrieved. This was placed in a canister and sent to pathology. Dressing placed. Patient tolerated procedure well. FNA Biopsy 1: 55157-VQH Biopsy, 1st lesion w/o image FNA Biopsy 2: 64505-JAG Biopsy, additional lesion w/o image All charges added?: Procedure code (CPT) selection complete Assessment & Plan Assessment & Plan (1) Right groin mass: Code(s): R19.09 - Other intra-abdominal and pelvic swelling, mass and lump Category: Surgical Plan: Patient will see me in the proximal weeks time. Hopefully by then we will have an official reading of MRI as well as pathology results from FNA. Patient has been given local instructions including avoiding strenuous activities, ice to the wound periodically and will follow-up as directed or p.r.n. Orders: Orders Surgical Today R19.09 - Other intra-abdominal and pelvic swelling, mass and lump Biopsy - Fine needle aspiration Today R19.09 - Other intra-abdominal and pelvic swelling, mass and lump Coding Level of Care Code Est Pt Level 5 (09563) Diagnoses Right groin mass R19.09 CPT Codes FNA Biopsy - FNA Biopsy 1: 38752-DMR Biopsy, 1st lesion w/o image ([id number]) FNA Biopsy - FNA Biopsy 2: 20884-MPE Biopsy, additional lesion w/o image ([id number])
== END 2024-02-08 09:24 | disposition home or self-care (01) ==
PROVIDERS: PCP Internal Medicine; Visit Provider Surgery
DX: R19.09 Other intra-abdominal and pelvic swelling, mass and lump (principal)
CPT/HCPCS: 10021; 99214

== ENCOUNTER 2024-02-08 08:43 | Outpatient (REF) | payer MEDICARE, OTHER, SELFPAY | END 2024-02-08 08:44 | disposition home or self-care (01) | LOC: HO.LNP 08:43 | PROVIDERS: PCP Internal Medicine; Visit Provider Surgery | DX: C43.71 Malignant melanoma of right lower limb, including hip (principal) | CPT/HCPCS: 10021; 81210; 88304; 88305; 88341; 88342; 88344; 88360; 99212 ==

== ENCOUNTER 2024-02-15 10:43 | Outpatient (AMB) | payer MEDICARE, OTHER, SELFPAY ==
--- NOTE | 2024-02-15 10:56 | A.OFFVIS_ITS ---
Vital Signs 02/15/24 11:00 Height 5 ft 10 in Weight 211 lb BMI 30.3 BP 142/71 H Blood Pressure Location Rt brachial Position Sitting Pulse 69 Intake Visit Reasons: folllow up Intake Note: Patient here s/p fine needle aspiration bx on Rt groin. Patient c/o: site feels tender to touch. Structures Technician Required: No Accompanied by: Self / Same As Patient Allergies No Known Allergies Allergy (Verified 02/15/24 11:00) HPI Comments Details: Patient presents for follow-up. Final pathology still pending. I spoke with Dr. Zamora, pathologist and he is still evaluating the specimen. He thinks he can make a diagnosis with what he received. In the meantime, the the preliminary findings are suggestive of perhaps a melanoma. Patient has no history of melanoma or any skin cancers himself. [facility] Medical History PSA elevation Overweight (BMI 25.0-29.9) Finger fracture, right Nephrolithiasis Osteoarthritis Hypercholesterolemia Hypertension Surgical History History of tonsillectomy Family History Mother Bladder cancer Father Prostate cancer Social History Housing: House Alcohol intake: former Patient Tobacco Use Status: Never used Tobacco e-Cigarette/Vaping Use: Never Used Second Hand Smoke Exposure: No Current occupational status: employed Cognitive needs: No Hearing needs: No Vision needs: Yes Physical Exam Vital Signs: Last Vital Signs Pulse 69 02/15/24 11:00 BP 142/71 H 02/15/24 11:00 BMI result Body Mass Index 30.3 Extrem Other: Right groin mass is status quo. Right lower extremity was evaluated in its entirety and no evidence of any suspicious skin pigmentation or lesions also abdomen buttock and scrotal areas were evaluated with no obvious pathology demonstrated to explain patient's right groin mass. Assessment & Plan Assessment & Plan (1) Right groin mass: Code(s): R19.09 - Other intra-abdominal and pelvic swelling, mass and lump Category: Surgical Plan Current plan is to wait further pathology evaluation and direct further studies and interventions based on this. Patient understands this. All questions a nswered. He will be contacted by me once we have final pathology results. Coding Level of Care Code Est Pt Level 4 (67954) Diagnoses Right groin mass R19.09
[2024-02-15 11:00] VITALS: BP 142/71; PULSE 69; BMI 30.3
== END 2024-02-15 11:19 | disposition home or self-care (01) ==
PROVIDERS: PCP Internal Medicine; Visit Provider Surgery
DX: R19.09 Other intra-abdominal and pelvic swelling, mass and lump (principal)
CPT/HCPCS: 99214

== ENCOUNTER → 2024-02-15 10:43 | Outpatient (BNVA) | payer MEDICARE, OTHER, SELFPAY | PROVIDERS: PCP Internal Medicine; Visit Provider Surgery | DX: R19.09 Other intra-abdominal and pelvic swelling, mass and lump (principal) | CPT/HCPCS: 99212 ==

== ENCOUNTER → 2024-03-20 13:00 | Outpatient (BNV) | payer MEDICARE, OTHER, SELFPAY | PROVIDERS: PCP Internal Medicine; Referring Provider Surgery; Visit Provider Internal Medicine | DX: C43.71 Malignant melanoma of right lower limb, including hip (principal); Z85.46 Personal history of malignant neoplasm of prostate | CPT/HCPCS: 99205; 99213; 99214; G2211 ==

== ENCOUNTER 2024-03-20 13:51 | Outpatient (AMB) | payer MEDICARE, OTHER, SELFPAY ==
--- NOTE | 2024-03-20 13:52 | A.OFFVIS_ITS ---
Intake Visit Reasons: s/p PET scan Intake Note: Patient here to discuss Rt ant thigh bx results. Reports incision healing well. Die Barber Required: No Accompanied by: Self / Same As Patient Allergies No Known Allergies Allergy (Verified 03/20/24 13:54) HPI Comments Details: Patient was seen by Oncology earlier today . He presents for follow-up regarding his recent PET scan. Patient has what appears to be extensive metastatic melanoma. He will undergo further staging her Oncology. [facility] Medical History PSA elevation Overweight (BMI 25.0-29.9) Finger fracture, right Nephrolithiasis Osteoarthritis Hypercholesterolemia Hypertension Surgical History History of tonsillectomy Family History Mother Bladder cancer Father Prostate cancer Social History Household Members: None and Other Housing: House Alcohol intake: former Patient Tobacco Use Status: Never used Tobacco e-Cigarette/Vaping Use: Never Used Second Hand Smoke Exposure: No service: Yes Current occupational status: employed Sexual orientation: Straight/Heterosexual Gender identity: Male Cognitive needs: No Hearing needs: No Vision needs: Yes Physical Exam GI Other: Exam is status quo Assessment & Plan Assessment & Plan (1) Melanoma: Comment: Right thigh mass January 2024 Code(s): C43.9 - Malignant melanoma of skin, unspecified Category: Surgical Plan At present, patient will complete his metastatic workup for oncology. Should he require Port-A-Cath, patient was instructed to call us and we will arrange for placement for his immunotherapy in the future. All questions answered. Coding Level of Care Code Est Pt Level 4 (61530) Diagnoses Melanoma C43.9
== END 2024-03-20 14:18 | disposition home or self-care (01) ==
LOC: HO.HGS 13:51
PROVIDERS: PCP Internal Medicine; Visit Provider Surgery
DX: C43.9 Malignant melanoma of skin, unspecified (principal)
CPT/HCPCS: 99214

== ENCOUNTER → 2024-03-20 13:51 | Outpatient (BNVA) | payer MEDICARE, OTHER, SELFPAY | PROVIDERS: PCP Internal Medicine; Visit Provider Surgery | DX: C43.9 Malignant melanoma of skin, unspecified (principal) | CPT/HCPCS: 99212 ==

== ENCOUNTER 2024-03-21 13:23 | Outpatient (REF) | payer MEDICARE, OTHER, SELFPAY ==
--- NOTE | ~2024-03-21 | CT_ITS ---
EXAMINATION: CT CHEST WITH CONTRAST CLINICAL INFORMATION: Malignant melanoma, staging examination . COMPARISON: No prior chest CT. Abdomen and pelvis CT performed concurrently. Please refer to that report, dictated separately. TECHNIQUE: Multidetector volumetric CT imaging of the chest was obtained after the administration of 85 mL of Omnipaque 350 intravenous contrast without immediate adverse reactions. Axial MIP volume rendering provided. Sagittal and coronal reformatted images were obtained. This CT examination was performed using dose optimization techniques as appropriate, variously including the following: *Automated exposure control *Adjustment of mA and/or kV according to patient size (this includes techniques or standardized protocols for targeted exams where dose is matched to indication/reason for exam; i.e. extremities or head) *Use of iterative reconstruction technique DLP: 171.3 mGy-cm FINDINGS: PULMONARY NODULES: -Average diameter 8 mm slightly irregular nodule anterior aspect apical segment right upper lobe (series 5, image 150). This finding is suspicious. -3 mm pleural-based nodule anterior right upper lobe (series 5, image 233). -2 mm subpleural nodule anterior right upper lobe (series 5, image 263). -There are 2 linear nodules within the major fissure medially, consistent with intrapulmonary lymph nodes, maximally measuring 3 mm. -2 mm nodule superior segment left lower lobe anteriorly (series 5, image 233). LUNGS: -Mild scarring is present in the medial right lower lobe abutting large rightward projecting spinal osteophytes (series 4, image 40). -Lungs otherwise clear without evidence of consolidation or acute disease. -The trachea, central airways, and peripheral airways appear normal. -No pleural effusions, masses, or pneumothorax. MEDIASTINUM: -Numerous prominent lymph nodes are present in the superior and middle mediastinum. -For example, a lymph node just anterior to the left subclavian artery measures 1.1 x 1.7 cm axial plane (Series 3, image 13). -An immediately more inferior prevascular node measures approximately 0.9 x 1.6 cm. -Lymph node immediately anterior to the SVC measures 1.0 cm short axis (series 3, image 21). -Preaortic lymph node measures 1.0 cm in short axis (series 3, image 20). -A bilobed node situated in between the brachiocephalic veins measures approximately 1.1 x 1.5 cm (series 3, image 16). -Several smaller prevascular nodes are present. -Lymph node posterior to the descending aorta present measuring 0.7 x 1.3 cm (series 3, image 32).. -Heart size normal. No pericardial effusion. -There are mild to moderate three-vessel coronary calcifications. -Aorta normal in caliber and course with mild calcification. -Main pulmonary artery is normal in size. -Esophagus demonstrates presence of a small type I hiatus hernia at the GE junction. -There are no abnormal hilar lymph nodes. -Normal thyroid. AXILLA/CHEST WALL: -No masses or pathologic lymphadenopathy. -Minimal gynecomastia bilaterally. UPPER ABDOMEN: Refer to the dedicated CT abdomen pelvis. OSSEOUS STRUCTURES: -No suspicious lytic or blastic bone lesion. -There are unsegmented hemivertebra at T1, and T8-9. These result in an S-shaped scoliosis of the thoracic spine. CT/CT chest w IV con IMPRESSION: 1. Suspicious average diameter 8 mm nodule within the anterior aspect apical segment right upper lobe. No old imaging for comparison. Correlation with PET and/or biopsy is suggested. 2. Pathologic superior and middle mediastinal lymphadenopathy, largest node measuring 1.1 x 1.7 cm just anterior to the proximal left subclavian artery. 3. No additional suspicious pulmonary nodules. A few tiny 2 to 3 mm nodules are present. 4. Lungs are clear with no active pulmonary disease. 5. No additional lymphadenopathy or evidence of metastatic disease elsewhere or to bone. 6. 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 Findings communicated to Dr. Smalls via secure text at 12:18 PM, 03/31/2024 Fleischner guidelines were followed. Electronically signed by: Vern Plummer MD 03/31/2024 12:21 PM EDT
--- NOTE | ~2024-03-21 | CT_ITS ---
EXAMINATION: CT ABDOMEN AND PELVIS WITH CONTRAST CLINICAL INFORMATION: Staging malignant melanoma. COMPARISON: Prior CT 08/05/2011 is archived and will not load on PACS. MR pelvis with contrast 1924. TECHNIQUE: Multidetector volumetric images were obtained from the superior aspect of the liver through the pubic symphysis following administration 85 mL of Omnipaque 350 intravenous contrast. Sagittal and coronal reformatted images were obtained on the technologist's workstation. Oral contrast: No This CT examination was performed using dose optimization techniques as appropriate, variously including the following: *Automated exposure control *Adjustment of mA and/or kV according to patient size (this includes techniques or standardized protocols for targeted exams where dose is matched to indication/reason for exam; i.e. extremities or head) *Use of iterative reconstruction technique DLP: 440.9 mGy-cm FINDINGS: LUNG BASES: Refer to the concurrent chest CT report. LIVER, GALLBLADDER, AND BILIARY TREE: Diffuse fatty infiltration of the liver is present. In the hepatic dome, segment 8, there is 1.1 cm low density lesion, indeterminate. No additional liver abnormalities. No biliary dilatation. The gallbladder is unremarkable with no evidence of radiopaque gallstones, gallbladder wall thickening, or obvious pericholecystic inflammatory changes. PANCREAS: Normal. SPLEEN: There is a 1.0 cm enhancing oval nodule in the lateral superior spleen (series 3, image 16), suspicious. There are no additional splenic abnormalities. ADRENAL GLANDS: Mild diffuse thickening of the left adrenal, likely hyperplasia. Right adrenal normal. KIDNEYS AND URETERS: There are 2 simple cysts in the right kidney, the larger in the inferior pole measuring 2.5 cm. There are no suspicious renal lesions, hydronephrosis, calculi, or other abnormalities. The ureters are normal in course and caliber. BLADDER: Somewhat decompressed with minimal wall thickening, nonspecific. Prostatectomy noted. GASTROINTESTINAL TRACT: -Small hiatus hernia at the GE junction. -Stomach is somewhat decompressed but demonstrates some fundal wall thickening, nonspecific but possibly related to underdistention. -The duodenal sweep, small bowel, appendix, and colon demonstrate no acute abnormalities. There are a few colonic diverticula, most notable in the sigmoid. -No rectal abnormality. ABDOMINAL WALL: -Abnormal bulky lymphadenopathy in the right inguinal region as detailed below. LYMPH NODES: -There is bulky right inguinal, right external and internal iliac, right pelvic sidewall, and para-aortic retroperitoneal lymphadenopathy present, consistent with metastatic adelaida disease. -For example, a left para-aortic lymph node at the level of the duodenal C-loop measures 1.9 x 2.6 cm in axial plane. (Series 3, image 38). -A right aortocaval lymph node measures 1.8 cm in short axis (series 3, image 45). -A right common iliac node measures 2.0 cm in short axis (series 3, image 55). -Right pelvic sidewall lymph node measures 2.9 x 5.1 cm in axial plane (series 3, image 75). -External iliac right-sided lymph node measures 3.0 x 2.9 cm in axial plane (image 70). -Incompletely imaged bulky right inguinal and femoral lymphadenopathy present, with the largest node demonstrating central necrosis, measuring an estimated 5.9 x 4.2 cm in axial plane, however this is incompletely imaged. VASCULAR: -Aorta and major branches are normal in caliber with mild to moderate calcific atherosclerosis. -There is no evidence of venous thrombosis. There is mass effect upon the external and internal right iliac vein from lymphadenopathy. PELVIC VISCERA: Prostatectomy. Otherwise no abnormalities. OSSEOUS STRUCTURES: -T8-9 hemivertebra. -Subtle sclerotic foci in inferior L4, central L5 (8 mm), S1, and S2 are suspicious for metastatic disease to bone. -Mild degenerative changes bilateral hip joints. CT/CT abdomen pelvis w IV con IMPRESSION: 1. Bulky lymphadenopathy in the retroperitoneum, right pelvic sidewall, right external and internal iliac chains, and right inguinal and femoral chains. Findings are consistent with metastatic lymphadenopathy. 2. 1.0 cm enhancing splenic nodule, suspicious. 3. 1.1 cm nonspecific segment 8 liver hypoattenuating focus, indeterminate. 4. Bony metastases L4, L5, S1, S2. 5. Fatty infiltration of the liver. 6. Prostatectomy. 7. Sigmoid colonic diverticulosis. 8. Additional ancillary findings as discussed in the body of the report. 9. Refer to the dedicated chest CT for chest CT findings. Findings were discussed with Dr. Smalls via secure text at 12:59 PM, 03/31/2024 Electronically signed by: Vern Plummer MD 03/31/2024 01:00 PM EDT
[2024-03-21] MEDS: iohexoL 350 MG/ML 100 ML INFUS..BTL IV (14:18)
== END 2024-03-21 13:24 | disposition home or self-care (01) ==
LOC: HO.CT 13:23
PROVIDERS: PCP Internal Medicine; Visit Provider Internal Medicine
DX: C43.9 Malignant melanoma of skin, unspecified (principal)
CPT/HCPCS: 71260; 74177; Q9967

== ENCOUNTER 2024-03-21 13:23 | Outpatient (REF) | payer MEDICARE, OTHER, SELFPAY | END 2024-03-21 13:24 | disposition home or self-care (01) | LOC: HO.CT 13:23 | PROVIDERS: PCP Internal Medicine; Visit Provider Internal Medicine | DX: Z13.89 Encounter for screening for other disorder (principal) ==

== ENCOUNTER → 2024-03-21 13:26 | Outpatient (BNV) | payer MEDICARE, OTHER, SELFPAY | PROVIDERS: PCP Internal Medicine; Visit Provider Radiology Diagnostic Radiology | DX: C43.9 Malignant melanoma of skin, unspecified (principal) | CPT/HCPCS: 71260; 74177 ==

== ENCOUNTER → 2024-03-22 14:39 | Outpatient (BNV) | payer MEDICARE, OTHER, SELFPAY | PROVIDERS: PCP Internal Medicine; Visit Provider Radiology Diagnostic Radiology | DX: C43.9 Malignant melanoma of skin, unspecified (principal) | CPT/HCPCS: 70553 ==

== ENCOUNTER 2024-03-22 14:42 | Outpatient (REF) | payer MEDICARE, OTHER, SELFPAY ==
--- NOTE | ~2024-03-22 | MR_ITS ---
EXAMINATION: MR BRAIN WITHOUT AND WITH CONTRAST CLINICAL INFORMATION: Staging melanoma. 68-year-old male. COMPARISON: None available. TECHNIQUE: Multiplanar, multisequence MRI of the brain was obtained before and after the intravenous administration of 10 mL IV Gadavist. Examination was performed on a 1.5 Ivania Siemens magnet utilizing standard sequences in multiple planes. FINDINGS: There is no diffusion restriction. There is no intracranial hemorrhage, acute infarction, mass effect, or edema. Ventricles, sulci, and cisterns are normal in size and configuration for patient age. No shift of midline. No abnormal hemosiderin deposition is identified. There are a few scattered punctate tiny foci of white matter T2 hyperintensity in the periventricular, subcortical, and hemispheric deep white matter, nonspecific, but most likely representing sequela of small vessel ischemia. There is no abnormal intra or extra-axial contrast enhancement. Midline structures appear normally formed. The pituitary gland appears normal. Posterior fossa structures appear normal. Cerebellar tonsils are appropriately located. Major flow voids are preserved within the skull base. The globes and orbital contents demonstrate no abnormalities. Paranasal sinuses are clear bilaterally. Nasal septum is significantly right deviated with a small right spur. The mastoids and tympanic cavities are normally aerated. Extracranial soft tissues demonstrate no abnormalities. No suspicious bone marrow changes are evident. Moderate degenerative changes right greater than left TM joints. Atlantoaxial joint is normal. MR/MR head/brain wo/w con IMPRESSION: 1. No evidence of intracranial hemorrhage, acute infarction, mass effect, edema, or abnormal enhancement. There is no evidence of metastatic disease. 2. Otherwise, normal MRI of the brain for age. Electronically signed by: Vern Plummer MD 03/24/2024 03:33 PM EDT
[2024-03-22] MEDS: gadobutroL 10 ML VIAL IVPUSH (15:25)
== END 2024-03-22 14:43 | disposition home or self-care (01) ==
LOC: HO.MRI 14:42
PROVIDERS: PCP Internal Medicine; Visit Provider Internal Medicine
DX: C43.9 Malignant melanoma of skin, unspecified (principal)
CPT/HCPCS: 70553; A9585

== ENCOUNTER 2024-04-21 10:53 | Outpatient (REF) | payer MEDICARE, OTHER, SELFPAY ==
--- NOTE | ~2024-04-21 | US_ITS ---
EXAMINATION: US TRIPLEX LOWER EXTREMITY, RIGHT CLINICAL INFORMATION: History of metastatic melanoma. Rule out DVT COMPARISON: None available. TECHNIQUE: Color-flow triplex imaging with spectral analysis and compression Doppler were performed on the right lower extremity. FINDINGS: Respiratory variation, normal compression and augmented flow are noted throughout the right lower extremity. The visualized common femoral vein, superficial femoral vein, profunda femoral vein, popliteal vein and midcalf peroneal and posterior tibial venous segments show no evidence of deep venous thrombosis. There is no Hutchison's cyst. Enlarged inguinal nodes and groin mass measuring 7.4 x 3 x 5.6 cm. US/US venous duplex LE RT IMPRESSION: No evidence of deep venous thrombosis involving the right lower extremity. Electronically signed by: William Cabezas MD 04/21/2024 12:27 PM [facility]NA
== END 2024-04-21 10:54 | disposition home or self-care (01) ==
LOC: HO.US 10:53
PROVIDERS: PCP Internal Medicine; Visit Provider Internal Medicine
DX: M79.89 Other specified soft tissue disorders (principal)
CPT/HCPCS: 93971

== ENCOUNTER 2024-05-27 08:15 | Inpatient (IN) | payer MEDICARE, OTHER, SELFPAY ==
[2024-05-27] VITALS (7 sets, daily range): BP systolic 104–159; BP diastolic 56–84; PULSE 68–95; RESP 14–22; TEMP 36.2–39.2; O2SAT 95–99; BMI 29.5
--- NOTE | ~2024-05-27 | CT_ITS ---
EXAMINATION: CT HEAD WITH CONTRAST CLINICAL INFORMATION: Headache, hx of melanoma COMPARISON: MR brain on 03/22/24 TECHNIQUE: Contiguous axial imaging was performed from the skull base to vertex following the administration of 100 mL of Omnipaque [address] examination was performed using dose optimization techniques as appropriate, variously including the following: *Automated exposure control *Adjustment of mA and/or kV according to patient size (this includes techniques or standardized protocols for targeted exams where dose is matched to indication/reason for exam; i.e. extremities or head) *Use of iterative reconstruction technique DLP: 751 mGy-cm RESULTS: There is no evidence of acute intracranial hemorrhage, acute large vessel infarct, midline shift or mass effect. The cho-white differentiation is preserved. The ventricles and sulci are within normal limits in size and configuration. There is no evidence of hydrocephalus. There are no extraaxial collections. Osseous structures are intact. Paranasal sinuses and mastoid air cells are well aerated. There are no areas of abnormal enhancement. CT/CT head/brain w IV con IMPRESSION: No acute intracranial abnormality. Electronically signed by: Daisy Clayton MD 05/27/2024 12:41 PM [facility]
--- NOTE | ~2024-05-27 | XR_ITS ---
EXAMINATION: XR CHEST CLINICAL INFORMATION: Fever, SIRS COMPARISON: CT chest 03/21/2024 and selected images from priors TECHNIQUE: AP portable upright view of the chest was obtained. FINDINGS: No lobar pneumonia. Pulmonary nodule noted in the right upper lobe on recent CT not visualized. Further evaluation again advised as per recent CT report. Heart and mediastinum grossly within normal limits for portable radiography. XR/XR chest 1V IMPRESSION: 1. No lobar pneumonia. 2. Known right upper lobe pulmonary nodule for which further evaluation has been advised. Electronically signed by: Tito Mon MD 05/27/2024 06:00 PM [facility]
--- OUTSIDE RECORDS SUMMARY | 2024-05-27 09:43 | XMS_ITS | Continuity of Care Document ---
Author Name [facility] Organization [facility] Care Team Providers Care [employer]otive [employer] Testing Supervisor Name Role Phone [facility] Unavailable Unavailable Medications Combined list of outpatient medications from Department of Defense and Veterans Affairs facilities.Medications provided include 1) outpatient medications from the last 15 months, and 2) patient-reported medications. Medication Details Route Status Patient Instructions Prescription Expires Prescription Number Last Dispense Date Ordering Provider Order Date Order Qty Source ATORVASTATI N CALCIUM (ATORVASTAT IN CALCIUM), 10 MG, TABLET, ORAL, MYLAN, 500 ea. BOTTLE Active [id number] 4 2023 90 Pharmac y Data Transac tion Service Facilit y ATORVASTATI N CALCIUM (ATORVASTAT IN CALCIUM), 10 MG, TABLET, ORAL, MYLAN, 500 ea. BOTTLE Active [id number] 4 2023 90 Pharmac y Data Transac tion Service Facilit y ENALAPRIL MALEATE (enalapril maleate), 10 MG, TABLET, ORAL, [facility], 1000 ea. BOTTLE Cancele d [id number] : 2023 0 Pharmac y Data Transac tion Service Facilit y ENALAPRIL MALEATE (enalapril maleate), 10 MG, TABLET, ORAL, [facility], 1000 ea. BOTTLE Active [id number] 4 2023 90 Pharmac y Data Transac tion Service Facilit y ENALAPRIL MALEATE (enalapril maleate), 10 MG, TABLET, ORAL, [facility], 1000 ea. BOTTLE Active [id number] 4 2023 90 Pharmac y Data Transac tion Service Facilit y ENALAPRIL MALEATE (ENALAPRIL MALEATE), 10MG, TABLET, ORAL, [facility], 1000 ea. BOTTLE Cancele d [id number] : 2023 0 Pharmac y Data Transac tion Service Facilit y ENALAPRIL MALEATE (ENALAPRIL MALEATE), 10MG, TABLET, ORAL, [facility], 1000 ea. BOTTLE Cancele d [id number] : 2023 0 Pharmac y Data Transac tion Service Facilit y HYDROCHLORO THIAZIDE (HYDROCHLOR OTHIAZIDE), 12.5 MG, CAPSULE, ORAL, [facility], 1000 ea. BOTTLE Active [id number] 4 2023 90 Pharmac y Data Transac tion Service Facilit y HYDROCHLORO THIAZIDE (HYDROCHLOR OTHIAZIDE), 12.5 MG, CAPSULE, ORAL, [facility], 1000 ea. BOTTLE Active [id number] 4 2023 90 Pharmac y Data Transac tion Service Facilit y SILDENAFIL CITRATE (sildenafil citrate), 100 MG, TABLET, ORAL, [facility], 30 ea. BOTTLE Cancele d [id number] : 2023 0 Pharmac y Data Transac tion Service Facilit y Immunizations Combined list of available immunizations from the Department of Defense and Veterans Affairs facilities. Immunization Series Date Given Administered By Site Reaction Lot Number CVX Code Drug Pickling Solution Maker Status Comments Source COVID-19, mRNA, LNP-S, PF, 100 mcg or 50 mcg dose 2021 BOGDASARIAN, () Not Given COVID-19, mRNA, LNP-S, PF, 100 mcg or 50 mcg dose DoD Influenza, injectable, MDCK, preservative free, quadrivalent 2020 BOGDASARIAN, () Not Given Influenza , injectabl e, MDCK, preservat jo-ann free, quadrival ent DoD influenza, injectable, quadrivalent, preservative free 2019 BOGDASARIAN, () Not Given influenza , injectabl e, quadrival ent, preservat jo-ann free DoD Tdap 2017 Avtar LIAO () Not Given Tdap DoD zoster recombinant 2017 Avtar LIAO () Not Given zoster recombina nt DoD zoster live 2016 BOGDASARIAN,J OHN () Not Given zoster live DoD influenza, injectable, quadrivalent, preservative free 2015 NEIL, () Not Given influenza , injectabl e, quadrival ent, preservat jo-ann free DoD Influenza, seasonal, injectable, preservative free 2014 CHRISTIN, () Not Given Influenza , seasonal, injectabl e, preservat jo-ann free DoD Influenza, seasonal, injectable, preservative free 2013 BEL WALLER () Not Given Influenza , seasonal, injectabl e, preservat jo-ann free [facility] tetanus and diphtheria toxoids, adsorbed, preservative free, for adult use (2 Lf of tetanus toxoid and 2 Lf of diphtheria toxoid) 1 2001 Unknown, Provider [id number] Sanofi Pasteur ([facility]) complet ed tetanus and diphtheri a toxoids, adsorbed, preservat jo-ann free, for adult use (2 Lf of tetanus toxoid and 2 Lf of diphtheri a toxoid) [facility] typhoid vaccine, parenteral, other than acetone-kille d, dried 1 2001 Unknown, Provider [id number] Sanofi Pasteur ([facility]) complet ed typhoid vaccine, parentera l, other than acetone-k illed, dried [facility] influenza virus vaccine, whole virus 1 2001 Unknown, Provider [id number] Sanofi Pasteur ([facility]) complet ed influenza virus vaccine, whole virus [facility] yellow fever vaccine 1 2001 Unknown, Provider [id number] Sanofi Pasteur ([facility]) complet ed yellow fever vaccine DoD meningococcal polysaccharid e vaccine (MPSV4) 1 2001 Unknown, Provider [id number] Sanofi Pasteur ([facility]) complet ed meningoco ccal polysacch aride vaccine (MPSV4) [facility] influenza virus vaccine, whole virus 1 2000 Unknown, Provider [id number] Leah ([place]) complet ed influenza virus vaccine, whole virus [facility] tuberculin skin test; purified protein derivative solution, intradermal 1 2000 Unknown, Provider [id number] Rhonda (CON) complet ed tuberculi n skin test; purified protein derivativ e solution, intraderm al [facility] influenza virus vaccine, whole virus 1 1999 Unknown, Provider [id number] 16 Wyeth-Ayerst ([place]) complet ed influenza virus vaccine, whole virus DoD typhoid vaccine, parenteral, other than acetone-kille d, dried 1 1999 Unknown, Provider [id number] Merieux ([place]) complet ed typhoid vaccine, parentera l, other than acetone-k illed, dried DoD tuberculin skin test; purified protein derivative solution, intradermal 1 1998 Unknown, Provider [id number] Rhonda (CON) complet ed tuberculi n skin test; purified protein derivativ e solution, intraderm al DoD influenza virus vaccine, whole virus 1 1998 Unknown, Provider [id number] 16 Wyjose-Ayjayant (Inactive) ([place]) complet ed influenza virus vaccine, whole virus DoD influenza virus vaccine, whole virus 2 1997 Unknown, Provider [id number] 16 Rhonda (CON) complet ed influenza virus vaccine, whole virus DoD hepatitis B vaccine, adult dosage 3 1997 Unknown, Provider [id number] Merck (MSD) complet ed hepatitis B vaccine, adult dosage DoD influenza virus vaccine, whole virus 1 1996 Unknown, Provider 16 () complet ed influenza virus vaccine, whole virus DoD hepatitis A vaccine, adult dosage 2 1996 Unknown, Provider [id number] Merck (MSD) complet ed hepatitis A vaccine, adult dosage DoD measles, mumps and rubella virus vaccine 1 1995 Unknown, Provider 03 () complet ed measles, mumps and rubella virus vaccine [facility] typhoid vaccine, parenteral, acetone-kille d, dried ([place] ) 2 1995 Unknown, Provider [id number] Merck (MSD) complet ed typhoid vaccine, parentera l, acetone-k illed, dried ([place] ) [facility] Spanish Encephalitis Vaccine SC 3 1994 Unknown, Provider 39 () complet ed Spanish Encephali tis Vaccine [facility] [place]anus and diphtheria toxoids, adsorbed, preservative free, for adult use (2 Lf of tetanus toxoid and 2 Lf of diphtheria toxoid) 1 1992 Unknown, Provider 09 () complet tetanus and diphtheri a toxoids, adsorbed, preservat jo-ann free, for adult use (2 Lf of tetanus toxoid and 2 Lf of diphtheri a toxoid) [facility] trivalent poliovirus vaccine, live, oral 1 1983 Unknown, Provider 02 () complet ed trivalent polioviru s vaccine, live, oral DoD Social History Combined list of available smoking, tobacco, and other social history from Department of Defense and Veterans Affairs facilities. Social History Type Response Date Comment Sour e This section is an empty social history section. DoD
--- OUTSIDE RECORDS SUMMARY | 2024-05-27 09:43 | XMS_ITS ---
Author Organization [facility] Address [address] [place] [address] Care Team Providers Care Group Leader Semiconductor Testing Name Role Phone Raghu Contreras MD Primary Care Provider Estrella wEing Unavailable [phone] ALLERGIES No Known Allergies REASON FOR VISIT Patient presents today for a COLON SCREENING MEDICATIONS Medication SIG (Take, Route, Frequency, Duration) Notes Start Date End Date Status Metamucil Fiber 51.7 % as directed Orall y as directed Active Aspirin Adult Low Dose 81 MG 1 tablet Or ally Once a day Not-Taking [facility] Allergy Relief 25 MG/10ML as directed Orally Not-Taking Sildenafil Citrate 100 MG Oral for 30 Active Fish Oil 1000 MG 1 capsule Orally Once a day for 30 day(s) Active hydroCHLOROthiazide 12.5 MG 1 tablet in the morning Orally Once a day Active Centrum Silver - as directed Orally once a day Active Vitamin C 500 MG as directed Orally Active Atorvastatin Calcium 10 MG 1 tablet Oral ly Once a day Active PROBLEMS Problem Type ICD Code Onset Dates Problem Status W/U Status Risk SNOMED Code Notes Problem History of adenomatous polyp of colon (Z86.010) Active confirmed History of adenomatous polyp of colon (850609574) Problem Colon cancer screening (Z12.11) Active confirmed Colon cancer screening (965949160) Problem Encounter for other preprocedural examination (Z01.818) Active confirmed Pre-procedure evaluation check (691310375) Problem Encounter for long-term (current) use of high-risk medication (Z79.899) Active confirmed Long-term current use of drug therapy (657870454) VITAL SIGNS BMI 30.42 kg/m2 03/02/2024 Blood pressure systolic 00 mm Hg 03/02/20 24 Blood pressure diastolic 00 mm Hg 024 Height 69 in 03/02/2024 Weight 206 lbs 03/02/2024 Encounters Encounter Location Date Provider Diagnosis [facility] [address] [place] [address] 03/02/2024 Estrella Mosqueda History of adenomato us polyp of colon Z86.010 ; Encounter for long-term (current) use of high-risk medication Z79.899 ; Colon cancer screening Z12.11 and Encounter for other preprocedural examination Z01.818 ASSESSMENTS Encounter Date Diagnosis Assessment Notes Treatment Notes Treatment Clinical Notes 03/02/2024 History of adenomatous polyp of colon (ICD-10 - Z86.010) 03/02/2024 Encounter for long-term (current) use of high-risk medication (ICD-10 - Z79.899) 03/02/2024 Colon cancer screening (ICD-10 - Z12.11) Stop fish oil for 1 week before the colonoscopy Do not take the Hydrochlorothiazide the day before or on the day of the colonoscopy IF IT TURNS OUT YOU NEED HAVE TREATMENT FOR THE LYMPH NODE ISSUE LET ME KNOW AND WE CAN ALWAYS DELAY THE COLONOSCOPY 03/02/2024 Encounter for other preprocedural examination (ICD-10 - Z01.818) PLAN OF TREATMENT Treatment Notes Assessment Notes Colon cancer screening Stop fish oil for 1 week before the colonoscopy Do not take the Hydrochlorothiazide the day before or on the day of the colonoscopy IF IT TURNS OUT YOU NEED HAVE TREATMENT FOR THE LYMPH NODE ISSUE LET ME KNOW AND WE CAN ALWAYS DELAY THE COLONOSCOPY Future Test Test Name Order Date COLONOSCOPY 03/02/2024 Next Appt Details Follow Up: prn, Reason: Progress Notes * Examination Category Sub-Category Detail Notes General Examination GENERAL APPEARANCE: pleasant , well nourished, well developed, in no acute distress EYES: sclera non-icteric NECK/THYROID: no cervical lymphade nopathy, neck supple HEART: S1, S2 normal LUNGS: clear to auscultatio n bilaterally ABDOMEN: normal bowel sounds, no guarding or rigidity, no hepatosplenomegaly, no masses palpable, soft, nontender, nondistended. NEUROLOGIC: alert and oriented SKIN: nonjaundiced, no spi david angiomata. EXTREMITIES: no edema ORAL CAVITY: mucosa moist
--- OUTSIDE RECORDS SUMMARY | 2024-05-27 09:43 | XMS_ITS | Patient Health Record ---
Author Organization [facility] Address [address] [place] [address] Care Team Providers Care Automotive Welder Name Role Phone Raghu Contreras MD Primary Care Provider Estrella Ewing Unavailable [phone] ALLERGIES No Known Allergies REASON FOR REFERRAL No Information MEDICATIONS Medication SIG (Take, Route, Frequency, Duration) Notes Start Date End Date Status Fish Oil 1000 MG 1 capsule Orally Once a day for 30 day(s) Active hydroCHLOROthiazide 12.5 MG 1 tablet in the morning Orally Once a day Active Metamucil Fiber 51.7 % as directed Orall y as directed Active Aspirin Adult Low Dose 81 MG 1 tablet Or ally Once a day Not-Taking [facility] Allergy Relief 25 MG/10ML as directed Orally Not-Taking Sildenafil Citrate 100 MG Oral for 30 Active Centrum Silver - as directed Orally once a day Active Vitamin C 500 MG as directed Orally Active Atorvastatin Calcium 10 MG 1 tablet Oral ly Once a day Active IMMUNIZATIONS Vaccine Route Administration Date Status Comme nts Influenza Unknown 02/12/2018 Administered SOCIAL HISTORY Sex Assigned At : Social History Observation Description Sex Assigned At Unknown PROBLEMS Problem Type ICD Code Onset Dates Problem Status W/U Status Risk SNOMED Code Notes Problem Colon cancer screening (Z12.11) Active confirmed Colon cancer screening (251137935) Problem Encounter for screening for malignant neoplasm of colon (Z12.11) Active confirmed 810557705 Problem History of adenomatous polyp of colon (Z86.010) Active confirmed History of adenomatous polyp of colon (407192320) Problem Encounter for other preprocedural examination (Z01.818) Active confirmed Pre-procedure evaluation check (053683673) Problem Encounter for long-term (current) use of high-risk medication (Z79.899) Active confirmed Long-term curre nt use of drug therapy (708564395) Problem Pre-procedural examination (Z01.818) Active confirmed [id number] VITAL SIGNS Blood pressure diastolic 00 mm Hg 03/02/2024 Height 69 in 03/02/2024 Blood pressure systolic 00 mm Hg 03/02/2024 Weight 206 lbs 03/02/2024 BMI 30.42 kg/m2 03/02/2024 Encounters Encounter Location Date Provider Diagnosis [facility] [address] [place] [address] 03/02/2024 Estrella Mosqueda History of adenomato us polyp of colon Z86.010 ; Encounter for long-term (current) use of high-risk medication Z79.899 ; Colon cancer screening Z12.11 and Encounter for other preprocedural examination Z01.818 [facility] [address] [place] [id number] 04/21/2024 Estrella Mosqueda ASSESSMENTS Encounter Date Diagnosis Assessment Notes Treatment [...] examination (ICD-10 - Z01.818) PLAN OF TREATMENT Future Test Test Name Order Date UPPER GI ENDOSCOPY 09/16/2012 COLONOSCOPY 01/03/2019 COLONOSCOPY 03/02/2024 Insurance Providers Payer Name Payer Address Payer Phone Subscriber Number Group Number Insured Name Patient Relationship to Insured Coverage Start Date Coverage End Date MEDICARE OF [place] [address] [place] AMBRIZ [id number] ИВАН SHELBY Self - patient is the insured [employer] [address] [place] [address] [phone] [id number] ИВАН SHELBY Self - patient is the insured MEDICAL (GENERAL) HISTORY Medical History History ICD Code Hypertension Hyperlipidemia Denies CA,DM,CVA,Lung disease,renal dise ase Chronic right-sided abdomina l discomfort-seen by Dr. Landrum-had neg GB w/u; seen by urologists and told of ? of early kidney stone Negative screening colonoscopy 2008 Negative EGD in 10/2012 except for a mini mal hiatal hernia 2022 Prostate cancer-surgery as below Colonoscopy 02/2019 with a small tubular adenoma ? melanoma in lymph node 01/2024-----sche duled for a PET-CT for 03/02/2024 Surgical History Surgery Date(Month/Year) Tonsillectomy and adenoidectomy Scalp cyst removed Radical prostatectomy--Dr. Yeboah 09/2022 Lymph node biopsy 01/[address] Decker- --? melanoma as above
--- OUTSIDE RECORDS SUMMARY | 2024-05-27 09:43 | XMS_ITS ---
Author Organization [facility] Address [address] [place] [id number] Care Team Providers Care Investigator Name Role Phone Raghu Contreras MD Primary Care Provider Estrella Ewing [facility] [phone] Encounters Encounter Location Date Provider Diagnosis [facility] [address] [place] [address] 04/21/2024 Estrella Mosqueda PLAN OF TREATMENT No Information
[2024-05-27] MEDS: Morphine Sulfate 4 MG/ML CARTRIDGE IVPUSH (09:46)
[2024-05-27] MEDS: ondansetron HCL 4 MG/2 ML VIAL IVPUSH (09:46)
[2024-05-27 09:54] LABS: MANUAL DIFF FLAG NO
[2024-05-27 09:55] LABS: Basophils Absolute Auto 0.1 X10*3/uL (0.0-0.2); Basophils Percent Auto 0.7 % (0-2); Eosinophils Absolute Auto 0.6 X10*3/uL (0.0-0.4); Eosinophils Percent Auto 6.9 % (0-4); Hematocrit 37.4 % (42.0-52.0); Imm Gran Abs Auto 0.07 X10*3/uL (0.00-0.03); Imm Gran Pct Auto 0.9 % (0.0-0.4); Lymphocytes Absolute Auto 0.9 X10*3/uL (1.2-4.9); Lymphocytes Percent Auto 10.8 % (20-40); Mean Corpuscular HGB Conc 34.8 g/dl (31.0-36.0); Mean Corpuscular Hemoglobin 29.7 pg (27.0-33.0); Mean Corpuscular Volume 85.4 fL (80.0-98.0); Mean Platelet Volume 7.7 fL (9.4-12.4); Monocytes Absolute Auto 0.5 X10*3/uL (0.1-1.2); Monocytes Percent Auto 6.6 % (2-11); Neutrophils Percent Auto 74.1 % (45-73); Platelet Count 241 X10*3/uL (160-400); Red Blood Count 4.38 X10*6/uL (4.60-5.80); Red Cell Distribution Width 14.3 % (11.0-16.0); White Blood Count 8.1 X10*3/uL (4.8-10.8)
[2024-05-27 10:01] LABS: Prothrombin Time 11.1 SEC (10.9-12.4)
[2024-05-27 10:10] LABS: Alanine Aminotransferase 108 U/L (0-40); Alkaline Phosphatase 79 U/L (39-117); Anion Gap 12 (12-20); Aspartate Amino Transferase 76 U/L (5-37); Bilirubin Direct 0.2 mg/dL (0.0-0.5); Bilirubin Total 0.7 mg/dL (0.0-1.0); Blood Urea Nitrogen 9 mg/dL (9-16); Calcium 9.2 mg/dL (8.4-10.2); Carbon Dioxide 32 mmol/L (22-29); Chloride 86 mmol/L (96-108); Creatinine Clr Calc Pharmacy 119.5; Estimated Glomerular Filt Rate > 60; Glucose Random 74 mg/dL (60-115); Lipase 26 U/L (8-78); Potassium 3.8 mmol/L (3.3-5.1); Sodium 126 mmol/L (135-145); Total Protein 7.1 g/dL (6.5-8.0)
--- NOTE | 2024-05-27 10:17 | PC.NURSE ---
Pt presents to ED from home, reports headache since yesterday that worsens with movement. Has been constipated for the last week and felt the headache started when he was straining. Did have BM yesterday. Is being treated currently for stage 4 skin [place] [facility] [place] and oriented, breathing even and unlabored, skin warm and dry. NSR on quality assurance monitor chassis.
[2024-05-27 10:44] LABS: Influenza A PCR NEGATIVE (Negative); Influenza B PCR NEGATIVE (Negative); Resp Syncy Virus RNA Qual PCR NEGATIVE (Negative); SARS COV2 PCR INHOUSE NEGATIVE (Negative)
--- NOTE | 2024-05-27 10:54 | ED_ITS ---
HPI - Headache General Chief Complaint: Headache Stated Complaint: headache, nausea Time Seen by Provider: 05/27/24 09:18 Source: patient, RN notes reviewed and old records reviewed Mode of arrival: ambulatory History of Present Illness ED Provider: Marlen Salmon PA-C HPI Narrative: 68-year-old male with a past medical history prostate CA s/p radical prostatectomy, nephrolithiasis, osteoarthritis, HLD, HTN, metastatic melanoma currently on immunotherapy presenting to the ED complaining of headache x3 days s/p having straining BM due to constipation. Denies headache being maximal at onset. Headache has improved briefly with Excedrin at home. Denies anticoagulation use. Reports mild lightheadedness/feeling off. Denies neck/back pain, vision change or loss, numbness, tingling, weakness Related Data Home Medications ?Medication ?Instructions ?Recorded ?Confirmed ascorbic acid (vitamin C) 1,000 mg 1 g PO DAILY 05/21/20 04/28/24 tablet multivitamin-ferrous 1 tab PO DAILY 05/21/20 04/28/24 fumarate-folic acid 18 mg-400 mcg tablet (Centrum) omega-3 fatty acids 1,000 mg 1,000 mg PO DAILY 05/21/20 04/28/24 capsule psyllium husk 0.4 gram capsule 0.4 g PO BEDTIME 05/25/22 04/28/24 (Metamucil) hydrochlorothiazide 12.5 mg capsule 12.5 mg PO DAILY 03/20/24 04/28/24 acetaminophen 500 mg tablet 1,000 mg PO Q6H PRN Headache 05/26/24 05/26/24 (Acetaminophen Extra Strength) Previous Rx's ?Medication ?Instructions ?Recorded atorvastatin 10 mg tablet 10 mg PO DAILY #90 tabs 11/16/23 enalapril maleate 10 mg tablet 10 mg PO DAILY #90 tabs 03/08/24 ondansetron 8 mg disintegrating 8 mg PO Q8H PRN Nausea #30 tabs 03/22/24 tablet prednisone 10 mg tablet 10 mg PO DIRECTED #60 tabs 05/09/24 Allergies Allergy/AdvReac Type Severity Reaction Status Date / Time No Known Allergies Allergy Verified 05/27/24 08:24 Review of Systems 2 Review of Systems: Yes all other systems are reviewed and are negative Constitutional: Constitutional: Reports as per HPI Neurologic: Denies Abnormal speech present and Denies Sensory deficit (Neuro) [facility] Past Medical History Attestation statement: The following information was validated with the patient. Source: old records reviewed Medical History PSA elevation Overweight (BMI 25.0-29.9) Finger fracture, right Nephrolithiasis Osteoarthritis Hypercholesterolemia Hypertension Surgical History History of tonsillectomy Family History Family History Mother Bladder cancer Father Prostate cancer Social History Social History Household Members: None and Other Housing: House Alcohol intake: former Patient Tobacco Use Status: Never used Tobacco Smoked in Last 30 Days: No e-Cigarette/Vaping Use: Never Used Second Hand Smoke Exposure: No Use of substances other than those prescribed or required for medical reasons: No Advance Directives: Yes Advance Directives on File: Yes Advance Directives Date on File: 09/22/22 service: Yes Current occupational status: employed Sexual orientation: Straight/Heterosexual Gender identity: Male Cognitive needs: No Hearing needs: No Vision needs: Yes Physical Exam 2 Vital Signs: Vital Signs: Last Vital Signs Temp 97.1 F 05/27/24 12:38 Pulse 89 05/27/24 12:38 Resp 22 H 05/27/24 12:38 BP 159/84 H 05/27/24 12:38 Pulse Ox 96 05/27/24 12:38 O2 Del Method Room Air 05/27/24 12:38 BMI result Body Mass Index 29.5 Const: General: cooperative, healthy appearing and no acute distress O rientation/consciousness: patient oriented x3 Limitations: no limitations HEENT: Head: Yes normal to inspection and Yes atraumatic Ears: hearing grossly normal bilaterally General nose exam: Normal external nose present Face and sinus: Yes normal facial exam Mouth: Normal oral and palatal mucosa present and no drooling Throat: Yes posterior oropharynx normal Eyes: General: appearance normal, both eyes and all related structures P upils: Equal, round and reactive pupils present EOM: EOMs intact bilaterally Neck: Neck: Yes normal visual inspection and Yes no meningeal signs Resp: Effort & Inspection: normal respiratory effort and no respiratory distress Auscultation: clear to auscultation bilaterally Cardio: Rate: regular rate Heart sounds: S1 normal heart sound present and S2 normal heart sound present GI: Inspection: Yes normal to inspection Palpation (GI): Soft to palpation, nontender, no guarding and not rigid : General: Yes no CVA tenderness Back/Spine/Pelvis: Back: no CVA tenderness Skin: Rashes: no rashes Wounds: no wounds Neuro: General: patient oriented x3, gait normal, tone normal, moves all extremities, no meningeal signs, no focal motor deficits and CN's II-XI intact bilaterally Cranial nerves: Yes CN's II-XII intact bilaterally, Yes Equal, round and reactive pupils present and Yes Bilaterally intact EOM present C ognition (Neuro): normal cognition Speech: No Abnormal speech present Gait exam (Neuro): Normal gait present Motor exam (neuro): 5/5 motor strength present throughout, Pronator motor function not present and no tremor noted S ensory Exam: No Sensory deficit (Neuro) Extrem: General: Yes normal to inspection Course Course Course Narrative: -1100--no leukocytosis. H&H at patient's baseline. -Hyponatremic to 126. AST and ALT elevated -viral studies negative CT head/brain w IV con IMPRESSION: No acute intracranial abnormality. > Plan to admit for further management, case discussed with hospitalist Dr. Negron Medications Administered Discontinued Medications Generic Name Dose Route Start Last Admin Trade Name Freq PRN Reason Stop Dose Admin Diphenhydramine HCl 25 mg 05/27/24 13:34 05/27/24 13:38 Diphenhydramine Hcl 25 Mg Capsule PO 05/27/24 13:35 25 mg ONCE ONE Administration Iohexol 100 ml 05/27/24 10:55 05/27/24 10:55 Iohexol 350 Mg/Ml 100 Ml Infus..Btl IV 05/27/24 10:56 70 ml ONCE ONE Administration Morphine Sulfate 4 mg 05/27/24 09:18 05/27/24 09:46 Morphine Sulfate 4 Mg/Ml Cartridge IVPUSH 05/27/24 09:19 4 mg ONCE ONE Administration Protocol Ondansetron HCl 4 mg 05/27/24 09:18 05/27/24 09:46 Ondansetron Hcl 4 Mg/2 Ml Vial IVPUSH 05/27/24 09:19 4 mg ONCE ONE Administration Medical Decision Making Medical Decision Making MDM Narrative: 68-year-old male with a past medical history prostate CA s/p radical prostatectomy, nephrolithiasis, osteoarthritis, HLD, HTN, metastatic melanoma currently on immunotherapy presenting to the ED complaining of headache x3 days s/p having straining BM due to constipation. On exam vital signs stable, NAD, nontoxic appearing, no focal neuro deficits, ambulating with steady gait without ataxia. Concern for viral illness vs metastatic disease/brain mass vs SAH vs migraine headache. Low suspicion for meningitis/encephalitis. Rule out ICH Plan: Labs, viral testing, head CT, pain control, re-evaluate Please refer to course for remaining clinical decision making, interpretation of labs/imaging results, and discussions with consultants and/or family members. Differential Diagnosis Differential Diagnoses: The differential diagnosis associated with the presentation includes As above Admission/Observation Consideration of admission/observation: Escalation of care including admission/observation considered Lab Data MDM Lab Attestation statement: I reviewed the patient's lab results. 05/27/24 09:45 05/27/24 09:45 Labs: Lab Results 05/27/24 05/27/24 05/27/24 Range/Units 09:45 09:54 12:27 WBC 8.1 (4.8-10.8) X10*3/uL RBC 4.38 L (4.60-5.80) X10*6/uL Hgb 13.0 L (14.0-18.0) g/dl Hct 37.4 L (42.0-52.0) % MCV 85.4 (80.0-98.0) fL MCH 29.7 (27.0-33.0) pg MCHC 34.8 (31.0-36.0) g/dl RDW 14.3 (11.0-16.0) % Plt Count 241 (160-400) X10*3/uL MPV 7.7 L (9.4-12.4) fL Immature Gran % (Auto) 0.9 H (0.0-0.4) % Neut % (Auto) 74.1 H (45-73) % Lymph % (Auto) 10.8 L (20-40) % [place] % (Auto) 6.6 (2-11) % Eos % (Auto) 6.9 H (0-4) % Baso % (Auto) 0.7 (0-2) % Lymph # (Auto) 0.9 L (1.2-4.9) X10*3/uL [place] # (Auto) 0.5 (0.1-1.2) X10*3/uL Eos # (Auto) 0.6 H (0.0-0.4) X10*3/uL Baso # (Auto) 0.1 (0.0-0.2) X10*3/uL Abs Immat Gran (auto) 0.07 H (0.00-0.03) X10*3/uL Absolute Neuts (auto) 6.0 (2.0-8.3) x10*3/uL Absolute Nucleated RBC 0.000 (0.0-0.012) X10*3/uL Nucleated RBC % (auto) 0.0 (0.0-0.2) /100WBC PT 11.1 (10.9-12.4) SEC INR 1.0 (0.9-1.1) Sodium 126 L (135-145) mmol/L Potassium 3.8 (3.3-5.1) mmol/L Chloride 86 L (96-108) mmol/L Carbon Dioxide 32 H (22-29) mmol/L Anion Gap 12 (12-20) BUN 9 (9-16) mg/dL Creatinine 0.73 (0.5-1.4) mg/dL Estim Creat Clear Calc 119.5 Estimated GFR > 60 Random Glucose 74 (60-115) mg/dL Osmolality 273 L (281-305) mosm/kg Calcium 9.2 (8.4-10.2) mg/dL Magnesium 2.0 (1.6-2.6) mg/dL Total Bilirubin 0.7 (0.0-1.0) mg/dL Direct Bilirubin 0.2 (0.0-0.5) mg/dL AST 76 H (5-37) U/L ALT 108 H (0-40) U/L Alkaline Phosphatase 79 (39-117) U/L Total Protein 7.1 (6.5-8.0) g/dL Albumin 4.0 (3.5-5.0) g/dL Lipase 26 (8-78) U/L TSH 0.53 (0.32-4.0) uIU/mL Random Cortisol < 1.0 ug/dL Urine Color Urine Appearance Urine pH (5.0-9.0) Ur Specific [place] (1.005-1.025) Urine Protein (Neg-Trace) mg/dL Urine Glucose (UA) (Negative) mg/dL Urine Ketones (Negative) mg/dL Urine Blood (Negative) Urine Nitrite (Negative) Ur Leukocyte Esterase (Negative) Urine Osmolality (373-1093) mosm/kg Ur Random Sodium mmol/L Ur Random Potassium mmol/L Ur Random Chloride mmol/L Influenza Type A (PCR) NEGATIVE (Negative) Influenza Type B (PCR) NEGATIVE (Negative) RSV RNA Qual (PCR) NEGATIVE (Negative) SARS-CoV-2 RNA (RT-PCR) NEGATIVE (Negative) 05/27/24 05/27/24 Range/Units 13:22 13:23 WBC (4.8-10.8) X10*3/uL RBC (4.60-5.80) X10*6/uL Hgb (14.0-18.0) g/dl Hct (42.0-52.0) % MCV (80.0-98.0) fL MCH (27.0-33.0) pg MCHC (31.0-36.0) g/dl RDW (11.0-16.0) % Plt Count (160-400) X10*3/uL MPV (9.4-12.4) fL Immature Gran % (Auto) (0.0-0.4) % Neut % (Auto) (45-73) % Lymph % (Auto) (20-40) % [place] % (Auto) (2-11) % Eos % (Auto) (0-4) % Baso % (Auto) (0-2) % Lymph # (Auto) (1.2-4.9) X10*3/uL [place] # (Auto) (0.1-1.2) X10*3/uL Eos # (Auto) (0.0-0.4) X10*3/uL Baso # (Auto) (0.0-0.2) X10*3/uL Abs Immat Gran (auto) (0.00-0.03) X10*3/uL Absolute Neuts (auto) (2.0-8.3) x10*3/uL Absolute Nucleated RBC (0.0-0.012) X10*3/uL Nucleated RBC % (auto) (0.0-0.2) /100WBC PT (10.9-12.4) SEC INR (0.9-1.1) Sodium (135-145) mmol/L Potassium (3.3-5.1) mmol/L Chloride (96-108) mmol/L Carbon Dioxide (22-29) mmol/L Anion Gap (12-20) BUN (9-16) mg/dL Creatinine (0.5-1.4) mg/dL Estim Creat Clear Calc Estimated GFR Random Glucose (60-115) mg/dL Osmolality (281-305) mosm/kg Calcium (8.4-10.2) mg/dL Magnesium (1.6-2.6) mg/dL Total Bilirubin (0.0-1.0) mg/dL Direct Bilirubin (0.0-0.5) mg/dL AST (5-37) U/L ALT (0-40) U/L Alkaline Phosphatase (39-117) U/L Total Protein (6.5-8.0) g/dL Albumin (3.5-5.0) g/dL Lipase (8-78) U/L TSH (0.32-4.0) uIU/mL Random Cortisol ug/dL Urine Color Yellow Urine Appearance Clear Urine pH 6.5 (5.0-9.0) Ur Specific [place] >= 1.030 H (1.005-1.025) Urine Protein Negative (Neg-Trace) mg/dL Urine Glucose (UA) Negative (Negative) mg/dL Urine Ketones Negative (Negative) mg/dL Urine Blood Negative (Negative) Urine Nitrite Negative (Negative) Ur Leukocyte Esterase Negative (Negative) Urine Osmolality 330 L (373-1093) mosm/kg Ur Random Sodium 89.0 mmol/L Ur Random Potassium 7.2 mmol/L Ur Random Chloride 92.0 mmol/L Influenza Type A (PCR) (Negative) Influenza Type B (PCR) (Negative) RSV RNA Qual (PCR) (Negative) SARS-CoV-2 RNA (RT-PCR) (Negative) Independent Interpretation I performed an independent interpretation of an: CT Scan Radiology Impression Discussion of test interpretation with radiology: I have reviewed the radiologist's reading. External Record Review External record reviewed: Inpatient record, Office record, Outpatient record, Prior outpatient labs, Prior outpatient radiology, Primary care record and Outside ED record Tests considered The following testing was considered but not selected: As above Prescription Management I considered prescription management with: Pain Medication Chronic Conditions Patient?s care impacted by: Cancer Discharge Plan Discharge Clinical Impression: Headache, Acute hyponatremia Patient Disposition: Admitted As Inpatient Print Language: Telugu
[2024-05-27] MEDS: iohexoL 350 MG/ML 100 ML INFUS..BTL IV (10:55)
[2024-05-27 13:18] LABS: Osmolality, Serum 273 mosm/kg (281-305)
[2024-05-27 13:35] LABS: Appearance Urine Clear; Color Urine Yellow; Glucose Urine UA Negative (Negative); Leukocyte Esterase Urine Negative (Negative); Nitrite Urine Negative (Negative); PH 6.5 (5.0-9.0); Specific Gravity - Urine >= 1.030 (1.005-1.025); Urine Blood Negative (Negative); Urine Ketones Negative (Negative); Urine Protein Negative (Neg-Trace)
[2024-05-27] MEDS: diphenhydrAMINE HCL 25 MG CAPSULE PO (13:38)
[2024-05-27 13:59] LABS: Potassium Urine Random 7.2 mmol/L
[2024-05-27 14:05] LABS: Osmolality Urine 330 mosm/kg (373-1093)
--- NOTE | 2024-05-27 14:21 | P.HPHOSP_ITS ---
History of Present Illness Date of Service: 05/27/24 <KAYLAH Beltran - Last Filed: 05/27/24 15:57> Attending physician on admission: Tarah Wset <KAYLAH Beltran - Last Filed: 05/27/24 15:57> Chief Complaint: Headache, dizziness <KAYLAH Beltran - Last Filed: 05/27/24 15:57> Pt is a 68-year-old male with a PMH significant for?prostate cancer s/p radical prostatectomy, nephrolithiasis, osteoarthritis, HLD, HTN, metastatic melanoma currently on chemotherapy follows with Dr. Smalsl who presents to the ED with?severe headache x3 days. Pt reports has been experiencing the ?headache from hell? since after straining during a bowel movement. Not alleviated by Excedrin. Called Dr. Smalls's office who told him to come to the ED if he experienced nausea. This morning headache continued and patient felt nauseous, lightheaded, and dizzy so came in for further evaluation. Pt also complains of right lower extremity edema that has been ongoing for the past couple of months. Had US doppler on 04/21/2024 that was negative for DVT. No chest pain/pressure, palpitations. Denies fever, chills, abdominal pain. No shortness a breath or difficulty breathing. ED clinician contacted Dr. Smalls who suggested admission for sodium correction, close monitoring labs, and checking TSH and cortisol levels. In the ED pt was hypertensive up to 152/83, vitals otherwise WNL and stable. Labs were significant for sodium 126, chloride 86, serum osmolality mildly low at 273, AST 76, and ALT 108. No leukocytosis. Stable H&H of 13.0/37.4. UA negative for UTI but with mildly low urine osmolality of 330. Tested negative for flu, RSV, COVID. CT?of head negative for acute intracranial abnormality. Pt was treated with ondansetron, morphine, and Benadryl. 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 <KAYLAH Beltran - Last Filed: 05/27/24 15:57> Review of Systems 2 Review of Systems: Negative except for that which is stated in the HPI <KAYLAH Beltran - Last Filed: 05/27/24 15:57> [facility] Medical History: Medical History PSA elevation Overweight (BMI 25.0-29.9) Finger fracture, right Nephrolithiasis Osteoarthritis Hypercholesterolemia Hypertension <KAYLAH Beltran - Last Filed: 05/27/24 15:57> Family History: Family History Mother Bladder cancer Father Prostate cancer <KAYLAH Beltran - Last Filed: 05/27/24 15:57> Surgical History: Surgical History History of tonsillectomy <KAYLAH Beltran - Last Filed: 05/27/24 15:57> Social History: Social History Household Members: None Housing: House Do you presently have visiting nurse or other home services: No Alcohol intake: former Patient Tobacco Use Status: Never used Tobacco e-Cigarette/Vaping Use: Never Used Second Hand Smoke Exposure: No Advance Directives Date on File: 09/22/22 service: Yes Current occupational status: employed Sexual orientation: Straight/Heterosexual Gender identity: Male Cognitive needs: No Hearing needs: No Vision needs: Yes <KAYLAH Beltran - Last Filed: 05/27/24 15:57> Meds Allergies/Adverse reactions: Allergies Allergy/AdvReac Type Severity Reaction Status Date / Time No Known Allergies Allergy Verified 05/27/24 08:24 <KAYLAH Beltran - Last Filed: 05/27/24 15:57> Home medications: Home Medications ?Medication ?Instructions ?Recorded ?Confirmed ?Last Taken ?Type ascorbic acid (vitamin C) 1,000 mg 1 g PO DAILY 05/21/20 05/27/24 05/27/24 09:00 History tablet multivitamin-ferrous 1 tab PO DAILY 05/21/20 05/27/24 05/27/24 09:00 History fumarate-folic acid 18 mg-400 mcg tablet (Centrum) omega-3 fatty acids 1,000 mg 1,000 mg PO DAILY 05/21/20 05/27/24 05/27/24 09:00 History capsule psyllium husk 0.4 gram capsule 0.4 g PO BEDTIME 05/25/22 05/27/24 Unknown History (Metamucil) hydrochlorothiazide 12.5 mg capsule 12.5 mg PO DAILY 03/20/24 05/27/24 05/27/24 09:00 History acetaminophen 500 mg tablet 1,000 mg PO Q6H PRN Headache 05/26/24 05/27/24 Unknown History (Acetaminophen Extra Strength) atorvastatin 10 mg tablet 10 mg PO BEDTIME 05/27/24 05/27/24 Unknown History diphenhydramine HCl 25 mg tablet 25 mg PO BID PRN Rash 05/27/24 05/27/24 Unknown History (Benadryl Allergy) sildenafil 100 mg tablet 100 mg PO DAILY PRN Erectile 05/27/24 05/27/24 Unknown History Dysfunction <KAYLAH Beltran - Last Filed: 05/27/24 15:57> Physical Exam 2 Vital Signs and Narrative: Vital Signs: Last Vital Signs Temp 97.1 F 05/27/24 12:38 Pulse 89 05/27/24 12:38 Resp 22 H 05/27/24 12:38 BP 159/84 H 05/27/24 12:38 Pulse Ox 96 05/27/24 12:38 O2 Del Method Room Air 05/27/24 12:38 BMI result Body Mass Index 29.5 <KAYLAH Beltran - Last Filed: 05/27/24 15:57> General: AOx3, no acute distress Resp: CTA bilaterally CVS: S1, S2, RRR GI: +BS, NT, no distention Skin: Warm, dry Neuro: Cranial nerves II-XII grossly intact bilaterally. Motor grossly intact bilaterally Extremities: 2+ right lower leg pitting edema Psych: Appropriate affect <KAYLAH Beltran - Last Filed: 05/27/24 15:57> Results Labs CBC and Chem 7: 05/28/24 05:24 05/28/24 05:24 <KAYLAH Beltran - Last Filed: 05/27/24 15:57> Labs: Laboratory Results - last 24 hr 05/27/24 05/27/24 05/27/24 09:45 09:54 12:27 MCV 85.4 MCH 29.7 MCHC 34.8 RDW 14.3 Plt Count 241 MPV 7.7 L Immature Gran % (Auto) 0.9 H Neut % (Auto) 74.1 H Lymph % (Auto) 10.8 L [place] % (Auto) 6.6 Eos % (Auto) 6.9 H Baso % (Auto) 0.7 Lymph # (Auto) 0.9 L [place] # (Auto) 0.5 Eos # (Auto) 0.6 H Baso # (Auto) 0.1 Abs Immat Gran (auto) 0.07 H Absolute Neuts (auto) 6.0 Absolute Nucleated RBC 0.000 Nucleated RBC % (auto) 0.0 PT 11.1 INR 1.0 Anion Gap 12 Estim Creat Clear Calc 119.5 Estimated GFR > 60 Random Glucose 74 Osmolality 273 L Calcium 9.2 Magnesium 2.0 Total Bilirubin 0.7 Direct Bilirubin 0.2 AST 76 H ALT 108 H Alkaline Phosphatase 79 Total Protein 7.1 Albumin 4.0 Lipase 26 Urine Color Urine Appearance Urine pH Ur Specific [place] Urine Protein Urine Glucose (UA) Urine Ketones Urine Blood Urine Nitrite Ur Leukocyte Esterase Urine Osmolality Ur Random Sodium Ur Random Potassium Ur Random Chloride Influenza Type A (PCR) NEGATIVE Influenza Type B (PCR) NEGATIVE RSV RNA Qual (PCR) NEGATIVE SARS-CoV-2 RNA (RT-PCR) NEGATIVE 05/27/24 05/27/24 13:22 13:23 MCV MCH MCHC RDW Plt Count MPV Immature Gran % (Auto) Neut % (Auto) Lymph % (Auto) [place] % (Auto) Eos % (Auto) Baso % (Auto) Lymph # (Auto) [place] # (Auto) Eos # (Auto) Baso # (Auto) Abs Immat Gran (auto) Absolute Neuts (auto) Absolute Nucleated RBC Nucleated RBC % (auto) PT INR Anion Gap Estim Creat Clear Calc Estimated GFR Random Glucose Osmolality Calcium Magnesium Total Bilirubin Direct Bilirubin AST ALT Alkaline Phosphatase Total Protein Albumin Lipase Urine Color Yellow Urine Appearance Clear Urine pH 6.5 Ur Specific [place] >= 1.030 H Urine Protein Negative Urine Glucose (UA) Negative Urine Ketones Negative Urine Blood Negative Urine Nitrite Negative Ur Leukocyte Esterase Negative Urine Osmolality 330 L Ur Random Sodium 89.0 Ur Random Potassium 7.2 Ur Random Chloride 92.0 Influenza Type A (PCR) Influenza Type B (PCR) RSV RNA Qual (PCR) SARS-CoV-2 RNA (RT-PCR) <KAYLAH Beltran - Last Filed: 05/27/24 15:57> Imaging Radiologist's Impressions: Impressions Head CT 05/27/24 10:39 IMPRESSION: No acute intracranial abnormality. Electronically signed by: Daisy Clayton MD 05/27/2024 12:41 PM EST RP <KAYLAH Beltran - Last Filed: 05/27/24 15:57> Assessment and Plan (1) Acute hyponatremia: Status: Acute <KAYLAH Beltran - Last Filed: 05/27/24 15:57> Pt is a 68-year-old male with a PMH significant for?prostate cancer s/p radical prostatectomy, nephrolithiasis, osteoarthritis, HLD, HTN, metastatic melanoma currently on chemotherapy follows with Dr. Smalls who presents to the ED with?severe headache x3 days. 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 Acute hyponatremia Sodium 126 at time of presentation Likely secondary to SIADH in the setting of chemotherapy and hydrochlorothiazide Serum osmolality mildly low at 273; urine osmolality mildly low at [address] on 1500 mL fluid restriction Oncology consult, follows with Dr. Smalls Follow sodium closely Headache Unclear if related to hyponatremia CT of head negative for acute abnormality Will treat with Fioricet HLD Continue statin HTN Continue enalapril Hold hydrochlorothiazide due to hyponatremia Full Code Attending:?Dr. 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 Pt will require hospital-level care for close monitoring of sodium levels. <KAYLAH Beltran - Last Filed: 05/27/24 15:57> Pt is a 68-year-old male with a PMH significant for?prostate cancer s/p radical prostatectomy, nephrolithiasis, osteoarthritis, HLD, HTN, metastatic melanoma currently on chemotherapy follows with Dr. Smalls who presents to the ED with?severe headache x3 days. 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 Acute hyponatremia Sodium 126 at time of presentation Likely secondary to SIADH in the setting of chemotherapy and hydrochlorothiazide Serum osmolality mildly low at 273; urine osmolality mildly low at [address] on 1500 mL fluid restriction Oncology consult, follows with Dr. Smalls Follow sodium closely Headache 2/ Meningitis CT of head negative for acute abnormality CSF suggestive of possible meningitis covered with IV antibiotics Will treat with Fioricet HLD Continue statin HTN Continue enalapril Hold hydrochlorothiazide due to hyponatremia Full Code Attending:?Dr. 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 Pt will require hospital-level care for close monitoring of sodium levels. <Tarah West MD - Last Filed: 05/28/24 11:08> Quality Stroke Does the patient have a stroke diagnosis?: No <KAYLAH Beltran - Last Filed: 05/27/24 15:57> VTE Prior VTE?: No <KAYLAH Beltran - Last Filed: 05/27/24 15:57> VTE Risk Level:: Medical - moderate - high <KAYLAH Beltran - Last Filed: 05/27/24 15:57> VTE Device Contraindication: Treatment Not Indicated <KAYLAH Beltran - Last Filed: 05/27/24 15:57> VTE Drug Contraindication: N/A - Med Ordered <KAYLAH Beltran - Last Filed: 05/27/24 15:57>
[2024-05-27 14:32] LABS: Thyroid Stimulating Hormone 0.53 uIU/mL (0.32-4.0)
[2024-05-27 14:41] LABS: Cortisol Random < 1.0 ug/dL
--- NOTE | 2024-05-27 15:38 | PHA.MEDREC ---
Addendum entered by Isidra Matt [facility] 05/27/24 15:44: reviewed Original Note: Pharmacy Consult ? Medication Reconciliation Pharmacy has completed the medication reconciliation. Spoke to pt to confirm meds.
[2024-05-27] MEDS: Butalb/Acetamin/Caff 50/325/40 TABLET 1 TAB PO (16:21)
[2024-05-27] MEDS: Acetaminophen 325 MG TABLET 650 MG PO (16:21)
[2024-05-27] MEDS: Multivitamin TABLET 1 TAB PO (16:22)
[2024-05-27] MEDS: 0.9 % Sodium Chloride Flush 3 ML SYRINGE IVFLUSH (16:23)
[2024-05-27] MEDS: Enoxaparin Sodium 40 MG/0.4 ML SYRINGE SUBCUT (16:23)
--- NOTE | 2024-05-27 16:45 | PM.EVENT ---
Event Note Date of Service: 05/27/24 Event Note: Notified by nursing that patient spiked a fever of 102.6 at 16:00. Patient previously tachypneic at 22 at 12:38, technically meeting SIRS criteria. Patient continues to complain of severe headache radiating down his neck to upper back. UA negative. Will get blood cultures, respiratory panel, CXR, lactic acid, and lumbar puncture. Will then empirically treat with ceftriaxone 2 g, started 05/27/2024. Time Spent With Patient Time: Total time managing care of this patient today ____ minutes.
--- NOTE | 2024-05-27 16:52 | PC.NURSE ---
richard took vitals and alerted the RN that pt was febrile. Brett ADRIAN notified and came down to assess pt. additional orders placed for blood cultures, lactic, CXR. blood being drawn now.
[2024-05-27 17:14] LABS: Anion Gap 15 (12-20); Blood Urea Nitrogen 7 mg/dL (9-16); Calcium 9.6 mg/dL (8.4-10.2); Carbon Dioxide 31 mmol/L (22-29); Chloride 84 mmol/L (96-108); Creatinine Clr Calc Pharmacy 88.1; Estimated Glomerular Filt Rate > 60; Glucose Random 70 mg/dL (60-115); Potassium 3.9 mmol/L (3.3-5.1); Sodium 126 mmol/L (135-145)
[2024-05-27 17:15] LABS: Lactic Acid 1.2 mmol/L (0.5-2.0)
[2024-05-27] MEDS: cefTRIAXone sodium 2 GM VIAL IVPUSH (17:32)
[2024-05-27] MEDS: Lidocaine HCl 1 % MPF 5 ML VIAL INFILTRATI (17:39)
[2024-05-27] MEDS: vancomycin/NS 2,000 MG/500 ML PLAST..BAG 250 MG IV (17:41)
[2024-05-27 17:46] LABS: CSF Appearance Clear, Colorless
[2024-05-27 17:47] LABS: CSF Tube # 2
[2024-05-27 18:20] LABS: Glucose CSF 45 mg/dL
[2024-05-27 19:11] LABS: Cryptococcus neoformans/gattii Not Detected (Not Detect.); Enterovirus Not Detected (Not Detect.); Escherichia coli K1 Not Detected (Not Detect.); Haemophilus influenzae Not Detected (Not Detect.); Herpes simplex virus 1 Not Detected (Not Detect.); Herpes simplex virus 2 Not Detected (Not Detect.); Human herpesvirus 6 Not Detected (Not Detect.); Human parechovirus Not Detected (Not Detect.); Listeria monocytogenes Not Detected (Not Detect.); Neisseria meningitidis Not Detected (Not Detect.); Streptococcus agalactiae Not Detected (Not Detect.); Streptococcus pneumoniae Not Detected (Not Detect.); Varicella zoster virus Not Detected (Not Detect.)
--- NOTE | 2024-05-27 19:11 | PC.NURSE ---
abx given immediately after LP was finished by Dr. Masterson
[2024-05-27 19:47] LABS: Appearance CSF CLEAR; CSF Tube # 4; CSF Volume 1.5 ML; Color CSF COLORLESS
[2024-05-27 19:49] LABS: CSF Monos 44 %; Lymphocytes CSF 56 %; Red Blood Cell CSF 0 MM*3
[2024-05-27 19:50] LABS: Appearance CSF CLEAR; CSF Monos 50 %; CSF Other Cells % 2 %; CSF Tube # 1; CSF Volume 1.5 ML; Color CSF COLORLESS; Lymphocytes CSF 32 %; Neutrophils CSF 16 %; Red Blood Cell CSF 424 MM*3; White Blood Cell CSF 9 MM*3
[2024-05-27 19:55] LABS: White Blood Cell CSF 16 MM*3
[2024-05-27] MEDS: Atorvastatin Calcium 10 MG TABLET PO (20:18)
[2024-05-27] MEDS: SODIUM CHLORIDE 0.9% IV (21:55)
[2024-05-27] MEDS: ACYCLOVIR SODIUM IV (21:55)
[2024-05-28 02:51] VITALS: BP 123/65; PULSE 84; RESP 20; TEMP 37.8; O2SAT 94
[2024-05-28] MEDS: Acetaminophen 325 MG TABLET 650 MG PO ×2 (02:56→20:05)
[2024-05-28] MEDS: Butalb/Acetamin/Caff 50/325/40 TABLET 1 TAB PO ×2 (02:56→12:43)
--- NOTE | 2024-05-28 03:10 | PC.NURSE ---
dr wood fragoso made aware of temp 100.1 pt medicated with prn tylenol for fever and fioricet for return of migraine.
[2024-05-28 04:45] VITALS: TEMP 36.8
[2024-05-28] MEDS: diphenhydrAMINE HCL 25 MG CAPSULE PO ×2 (05:14→22:38)
--- NOTE | 2024-05-28 05:18 | PC.NURSE ---
pt reports itching of rash from immunotherapy. pt requesting bendryl for itch
[2024-05-28] MEDS: ACYCLOVIR SODIUM IV ×3 (05:37→22:47)
[2024-05-28] MEDS: SODIUM CHLORIDE 0.9% IV ×3 (05:37→22:47)
[2024-05-28 06:11] LABS: Anion Gap 14 (12-20); Blood Urea Nitrogen 13 mg/dL (9-16); Carbon Dioxide 28 mmol/L (22-29); Chloride 87 mmol/L (96-108); Creatinine Clr Calc Pharmacy 69.2; Estimated Glomerular Filt Rate 57; Glucose Random 79 mg/dL (60-115); Potassium 4.9 mmol/L (3.3-5.1); Sodium 124 mmol/L (135-145)
[2024-05-28 06:25] LABS: Hematocrit 36.4 % (42.0-52.0); Hemoglobin 12.4 g/dl (14.0-18.0); Mean Corpuscular HGB Conc 34.1 g/dl (31.0-36.0); Mean Corpuscular Hemoglobin 29.5 pg (27.0-33.0); Mean Corpuscular Volume 86.5 fL (80.0-98.0); Mean Platelet Volume 8.3 fL (9.4-12.4); Platelet Count 244 X10*3/uL (160-400); Red Blood Count 4.21 X10*6/uL (4.60-5.80); Red Cell Distribution Width 14.3 % (11.0-16.0); White Blood Count 6.9 X10*3/uL (4.8-10.8)
[2024-05-28] MEDS: vancomycin HCL 1,250 MG in 0.9 % Sodium Chloride 250 ML 166.67 MG IV ×2 (06:44→18:31)
[2024-05-28] MEDS: 0.9 % Sodium Chloride Flush 3 ML SYRINGE IVFLUSH ×2 (08:20→20:21)
[2024-05-28 09:05] LABS: Adenovirus PCR Not Detected (Not Detect.); Bordetella parapertussis PCR Not Detected (Not Detect.); Bordetella pertussis PCR Not Detected (Not Detect.); Chlamydia pneumoniae PCR Not Detected (Not Detect.); Coronavirus 229E PCR Not Detected (Not Detect.); Coronavirus HKU1 PCR Not Detected (Not Detect.); Coronavirus NL63 PCR Not Detected (Not Detect.); Coronavirus OC43 PCR Not Detected (Not Detect.); Human metapneumovirus PCR Not Detected (Not Detect.); Influenza A PCR Not Detected (Not Detect.); Influenza B PCR Not Detected (Not Detect.); Mycoplasma pneumoniae PCR Not Detected (Not Detect.); Parainfluenza 1 PCR Not Detected (Not Detect.); Parainfluenza 2 PCR Not Detected (Not Detect.); Parainfluenza 3 PCR Not Detected (Not Detect.); Parainfluenza 4 PCR Not Detected (Not Detect.); RSV PCR Not Detected (Not Detect.); Rhino/Enterovirus PCR Not Detected (Not Detect.)
[2024-05-28 09:07] LABS: SARS-CoV-2 PCR Not Detected (Not Detect.)
[2024-05-28 09:27] VITALS: BMI 29.5
[2024-05-28] MEDS: Multivitamin TABLET 1 TAB PO (10:02)
[2024-05-28] MEDS: Ascorbic Acid 500 MG TABLET 1000 MG PO (10:02)
[2024-05-28] MEDS: Enalapril Maleate 10 MG TABLET PO (10:02)
--- NOTE | 2024-05-28 11:08 | P.PNIM_ITS ---
Subjective Subjective Date of Service: 05/28/24 Interval History: seen and evaluated this morning headache better Na dropped to 124 no other overnight events Review of Systems Review of Systems: Yes all other systems are reviewed and are negative Physical Exam 2 Vital Signs: Vital Signs: Last Vital Signs Temp 98.3 F 05/28/24 04:45 Pulse 84 05/28/24 02:51 Resp 20 05/28/24 02:51 BP 123/65 05/28/24 02:51 Pulse Ox 94 05/28/24 02:51 O2 Del Method Room Air 05/28/24 02:51 BMI result Body Mass Index 29.5 Const: Other: Constitutional : Awake, interactive, not in distress Neck : Normal inspection, Supple Cardiovascular : RRR, no JVP, no lower extremity edema Respiratory : good bilateral air entry, no crackles, wheezes or rhonchi Gastrointestinal: soft, lax, Normal bowel sounds, Non tender Skin : Warm, Dry Neurological : Alert & oriented x3, No focal deficit , CN 2-12 within normal Objective Data Active Medications Acetaminophen (Acetaminophen 325 Mg Tablet) 650 mg PO Q6H PRN PRN Reason: Pain, Mild (Pain Scale 1-3), fever or headache Last Admin: 05/28/24 02:56 Dose: 650 mg Documented By: NYDIA Acetaminophen/Butalbital/Caffeine (Butalb/Acetamin/Caff 50/325/40 Tablet) 1 tab PO Q4H PRN PRN Reason: Migraine Headache Last Admin: 05/28/24 02:56 Dose: 1 tab Documented By: NYDIA Ascorbic Acid (Ascorbic Acid 500 Mg Tablet) 1,000 mg PO DAILY REPLACED BY [facility] Last Admin: 05/28/24 10:02 Dose: 1,000 mg Documented By: BRITTANIE Atorvastatin Calcium (Atorvastatin Calcium 10 Mg Tablet) 10 mg PO BEDTIME REPLACED BY [facility] Last Admin: 05/27/24 20:18 Dose: 10 mg Documented By: SARTHAK Benzonatate (Benzonatate 100 Mg Capsule) 100 mg PO TID PRN PRN Reason: Cough Calcium Carbonate (Calcium Carbonate 750 Mg Tab.Chew) 750 mg PO Q4H PRN PRN Reason: Heartburn Ceftriaxone Sodium (Ceftriaxone Sodium 2 Gm Vial) 2 gm IVPUSH Q24H REPLACED BY [facility] Last Admin: 05/27/24 17:32 Dose: 2 gm Documented By: CHEL Diphenhydramine HCl (Diphenhydramine Hcl 25 Mg Capsule) 25 mg PO BID PRN PRN Reason: Rash Last Admin: 05/28/24 05:14 Dose: 25 mg Documented By: NYDIA Enalapril Maleate (Enalapril Maleate 10 Mg Tablet) 10 mg PO DAILY REPLACED BY [facility]; Protocol Last Admin: 05/28/24 10:02 Dose: 10 mg Documented By: BRITTANIE Enoxaparin Sodium (Enoxaparin Sodium 40 Mg/0.4 Ml Syringe) 40 mg SUBCUT Q24H REPLACED BY [facility] Last Admin: 05/27/24 16:23 Dose: 40 mg Documented By: SARTHAK Acyclovir Sodium 860 mg/ (Sodium Chloride) 267.2 mls @ 267.2 mls/hr IV Q8H REPLACED BY [facility] Last Infusion: 05/28/24 06:41 Dose: Infused Documented By: NYDIA Vancomycin HCl 1,250 mg/ (Sodium Chloride) 250 mls @ 166.667 mls/hr IV Q12H REPLACED BY [facility] Last Infusion: 05/28/24 08:20 Dose: Infused Documented By: CORDELIA Magnesium Hydroxide (Milk Of Magnesia 30 Ml Oral.Susp) 30 ml PO DAILY PRN PRN Reason: Constipation Melatonin (Melatonin 3 Mg Tablet) 6 mg PO BEDTIME PRN PRN Reason: Insomnia Morphine Sulfate (Morphine Sulfate 4 Mg/Ml Cartridge) 4 mg IVPUSH Q4H PRN; Protocol PRN Reason: Pain, Severe (Pain Scale 7-10) Multivitamins/Vitamin C (Multivitamin Tablet) 1 tab PO DAILY REPLACED BY [facility] Last Admin: 05/28/24 10:02 Dose: 1 tab Documented By: BRITTANIE Ondansetron HCl (Ondansetron Hcl 4 Mg/2 Ml Vial) 4 mg IVPUSH Q8H PRN PRN Reason: Nausea and Vomiting Pharmacy Consult (Consult Rx Vancomycin Dosing) 1 each MISCELLANE DAILY PRN PRN Reason: Consult order Sodium Chloride (0.9 % Sodium Chloride Flush 3 Ml Syringe) 3 ml IVFLUSH QSHIFT REPLACED BY [facility] Last Admin: 05/28/24 08:20 Dose: 3 ml Documented By: CORDELIA Urea (Urea 15 Gm Powder) 30 gm PO ONCE ONE Stop: 05/28/24 11:07 Labs 05/28/24 05:24 05/28/24 05:24 Labs: Laboratory Results - last 24 hr 05/27/24 05/27/24 05/27/24 09:45 12:27 13:22 MCV MCH MCHC RDW Plt Count MPV Absolute Nucleated RBC Nucleated RBC % (auto) Anion Gap Estim Creat Clear Calc Estimated GFR Random Glucose Osmolality 273 L Lactic Acid Calcium TSH 0.53 Random Cortisol < 1.0 Urine Color Yellow Urine Appearance Clear Urine pH 6.5 Ur Specific [place] >= 1.030 H Urine Protein Negative Urine Glucose (UA) Negative Urine Ketones Negative Urine Blood Negative Urine Nitrite Negative Ur Leukocyte Esterase Negative Urine Osmolality Ur Random Sodium Ur Random Potassium Ur Random Chloride CSF Tube Number CSF Volume CSF Appearance CSF Color CSF WBC CSF RBC CSF Neutrophils CSF Lymphocytes CSF Monocytes % CSF Other Cells % CSF Appearance (b) CSF Glucose CSF Total Protein CSF C.neoform/gat PCR CSF CMV DNA (PCR) CSF Enterovirus (PCR) CSF E. coli K1 (PCR) CSF H. influenzae (PCR) CSF HSV I (PCR) CSF HSV II (PCR) CSF HHV 6 (PCR) CSF L.monocytogenes PCR CSF N. meningitidis PCR CSF Parechovirus (PCR) CSF S. agalactiae (PCR) CSF S. pneumoniae (PCR) CSF VZV (PCR) Respiratory Panel [place] Adenovirus (Rapid PCR) B.pert (TEM-PCR) B.parapertussis DNA PCR C. pneumoniae DNA (PCR) Coronavirus OC43 (PCR) Coronavirus HKU1 (PCR) Coronavirus 229E (PCR) Coronavirus NL63 (PCR) Human Metapneumovir PCR Influenza A (RT-PCR) Influenza B (RT-PCR) M. pneumoniae (PCR) Parainfluenza 1 (PCR) Parainfluenza 2 (PCR) Parainfluenza 3 (PCR) Parainfluenza 4 (PCR) RSV (PCR) Entero/Rhino (PCR) SARS-CoV-2 RNA (RT-PCR) 05/27/24 05/27/24 05/27/24 13:23 16:49 17:38 MCV MCH MCHC RDW Plt Count MPV Absolute Nucleated RBC Nucleated RBC % (auto) Anion Gap 15 Estim Creat Clear Calc 88.1 Estimated GFR > 60 Random Glucose 70 Osmolality Lactic Acid 1.2 Calcium 9.6 TSH Random Cortisol Urine Color Urine Appearance Urine pH Ur Specific [place] Urine Protein Urine Glucose (UA) Urine Ketones Urine Blood Urine Nitrite Ur Leukocyte Esterase Urine Osmolality 330 L Ur Random Sodium 89.0 Ur Random Potassium 7.2 Ur Random Chloride 92.0 CSF Tube Number 2 CSF Volume CSF Appearance CSF Color CSF WBC CSF RBC CSF Neutrophils CSF Lymphocytes CSF Monocytes % CSF Other Cells % CSF Appearance (b) CSF Glucose CSF Total Protein CSF C.neoform/gat PCR CSF CMV DNA (PCR) CSF Enterovirus (PCR) CSF E. coli K1 (PCR) CSF H. influenzae (PCR) CSF HSV I (PCR) CSF HSV II (PCR) CSF HHV 6 (PCR) CSF L.monocytogenes PCR CSF N. meningitidis PCR CSF Parechovirus (PCR) CSF S. agalactiae (PCR) CSF S. pneumoniae (PCR) CSF VZV (PCR) Respiratory Panel [place] See Note Adenovirus (Rapid PCR) Not Detected B.pert (TEM-PCR) Not Detected B.parapertussis DNA PCR Not Detected C. pneumoniae DNA (PCR) Not Detected Coronavirus OC43 (PCR) Not Detected Coronavirus HKU1 (PCR) Not Detected Coronavirus 229E (PCR) Not Detected Coronavirus NL63 (PCR) Not Detected Human Metapneumovir PCR Not Detected Influenza A (RT-PCR) Not Detected Influenza B (RT-PCR) Not Detected M. pneumoniae (PCR) Not Detected Parainfluenza 1 (PCR) Not Detected Parainfluenza 2 (PCR) Not Detected Parainfluenza 3 (PCR) Not Detected Parainfluenza 4 (PCR) Not Detected RSV (PCR) Not Detected Entero/Rhino (PCR) Not Detected SARS-CoV-2 RNA (RT-PCR) Not Detected 05/27/24 05/27/24 05/27/24 17:38 17:38 17:38 MCV MCH MCHC RDW Plt Count MPV Absolute Nucleated RBC Nucleated RBC % (auto) Anion Gap Estim Creat Clear Calc Estimated GFR Random Glucose Osmolality Lactic Acid Calcium TSH Random Cortisol Urine Color Urine Appearance Urine pH Ur Specific [place] Urine Protein Urine Glucose (UA) Urine Ketones Urine Blood Urine Nitrite Ur Leukocyte Esterase Urine Osmolality Ur Random Sodium Ur Random Potassium Ur Random Chloride CSF Tube Number 1 4 CSF Volume 1.5 1.5 CSF Appearance CLEAR CSF Color CSF WBC CSF RBC CSF Neutrophils CSF Lymphocytes CSF Monocytes % CSF Other Cells % CSF Appearance (b) CSF Glucose CSF Total Protein CSF C.neoform/gat PCR CSF CMV DNA (PCR) CSF Enterovirus (PCR) CSF E. coli K1 (PCR) CSF H. influenzae (PCR) CSF HSV I (PCR) CSF HSV II (PCR) CSF HHV 6 (PCR) CSF L.monocytogenes PCR CSF N. meningitidis PCR CSF Parechovirus (PCR) CSF S. agalactiae (PCR) CSF S. pneumoniae (PCR) CSF VZV (PCR) Respiratory Panel [place] Adenovirus (Rapid PCR) B.pert (TEM-PCR) B.parapertussis DNA PCR C. pneumoniae DNA (PCR) Coronavirus OC43 (PCR) Coronavirus HKU1 (PCR) Coronavirus 229E (PCR) Coronavirus NL63 (PCR) Human Metapneumovir PCR Influenza A (RT-PCR) Influenza B (RT-PCR) M. pneumoniae (PCR) Parainfluenza 1 (PCR) Parainfluenza 2 (PCR) Parainfluenza 3 (PCR) Parainfluenza 4 (PCR) RSV (PCR) Entero/Rhino (PCR) SARS-CoV-2 RNA (RT-PCR) 05/27/24 05/27/24 05/27/24 17:38 17:38 17:38 MCV MCH MCHC RDW Plt Count MPV Absolute Nucleated RBC Nucleated RBC % (auto) Anion Gap Estim Creat Clear Calc Estimated GFR Random Glucose Osmolality Lactic Acid Calcium TSH Random Cortisol Urine Color Urine Appearance Urine pH Ur Specific [place] Urine Protein Urine Glucose (UA) Urine Ketones Urine Blood Urine Nitrite Ur Leukocyte Esterase Urine Osmolality Ur Random Sodium Ur Random Potassium Ur Random Chloride CSF Tube Number CSF Volume CSF Appearance CLEAR CSF Color COLORLESS COLORLESS CSF WBC 9 16 H* CSF RBC 424 CSF Neutrophils CSF Lymphocytes CSF Monocytes % CSF Other Cells % CSF Appearance (b) CSF Glucose CSF Total Protein CSF C.neoform/gat PCR CSF CMV DNA (PCR) CSF Enterovirus (PCR) CSF E. coli K1 (PCR) CSF H. influenzae (PCR) CSF HSV I (PCR) CSF HSV II (PCR) CSF HHV 6 (PCR) CSF L.monocytogenes PCR CSF N. meningitidis PCR CSF Parechovirus (PCR) CSF S. agalactiae (PCR) CSF S. pneumoniae (PCR) CSF VZV (PCR) Respiratory Panel [place] Adenovirus (Rapid PCR) B.pert (TEM-PCR) B.parapertussis DNA PCR C. pneumoniae DNA (PCR) Coronavirus OC43 (PCR) Coronavirus HKU1 (PCR) Coronavirus 229E (PCR) Coronavirus NL63 (PCR) Human Metapneumovir PCR Influenza A (RT-PCR) Influenza B (RT-PCR) M. pneumoniae (PCR) Parainfluenza 1 (PCR) Parainfluenza 2 (PCR) Parainfluenza 3 (PCR) Parainfluenza 4 (PCR) RSV (PCR) Entero/Rhino (PCR) SARS-CoV-2 RNA (RT-PCR) 05/27/24 05/27/24 05/27/24 17:38 17:38 17:38 MCV MCH MCHC RDW Plt Count MPV Absolute Nucleated RBC Nucleated RBC % (auto) Anion Gap Estim Creat Clear Calc Estimated GFR Random Glucose Osmolality Lactic Acid Calcium TSH Random Cortisol Urine Color Urine Appearance Urine pH Ur Specific [place] Urine Protein Urine Glucose (UA) Urine Ketones Urine Blood Urine Nitrite Ur Leukocyte Esterase Urine Osmolality Ur Random Sodium Ur Random Potassium Ur Random Chloride CSF Tube Number CSF Volume CSF Appearance CSF Color CSF WBC CSF RBC 0 CSF Neutrophils 16 CSF Lymphocytes 32 56 CSF Monocytes % 50 44 CSF Other Cells % 2 CSF Appearance (b) Clear, Colorless CSF Glucose 45 CSF Total Protein 54.0 H CSF C.neoform/gat PCR Not Detected CSF CMV DNA (PCR) Not Detected CSF Enterovirus (PCR) Not Detected CSF E. coli K1 (PCR) Not Detected CSF H. influenzae (PCR) Not Detected CSF HSV I (PCR) Not Detected CSF HSV II (PCR) Not Detected CSF HHV 6 (PCR) Not Detected CSF L.monocytogenes PCR Not Detected CSF N. meningitidis PCR Not Detected CSF Parechovirus (PCR) Not Detected CSF S. agalactiae (PCR) Not Detected CSF S. pneumoniae (PCR) Not Detected CSF VZV (PCR) Not Detected Respiratory Panel [place] Adenovirus (Rapid PCR) B.pert (TEM-PCR) B.parapertussis DNA PCR C. pneumoniae DNA (PCR) Coronavirus OC43 (PCR) Coronavirus HKU1 (PCR) Coronavirus 229E (PCR) Coronavirus NL63 (PCR) Human Metapneumovir PCR Influenza A (RT-PCR) Influenza B (RT-PCR) M. pneumoniae (PCR) Parainfluenza 1 (PCR) Parainfluenza 2 (PCR) Parainfluenza 3 (PCR) Parainfluenza 4 (PCR) RSV (PCR) Entero/Rhino (PCR) SARS-CoV-2 RNA (RT-PCR) 05/28/24 05:24 MCV 86.5 MCH 29.5 MCHC 34.1 RDW 14.3 Plt Count 244 MPV 8.3 L Absolute Nucleated RBC 0.000 Nucleated RBC % (auto) 0.0 Anion Gap 14 Estim Creat Clear Calc 69.2 Estimated GFR 57 Random Glucose 79 Osmolality Lactic Acid Calcium 9.0 D TSH Random Cortisol Urine Color Urine Appearance Urine pH Ur Specific [place] Urine Protein Urine Glucose (UA) Urine Ketones Urine Blood Urine Nitrite Ur Leukocyte Esterase Urine Osmolality Ur Random Sodium Ur Random Potassium Ur Random Chloride CSF Tube Number CSF Volume CSF Appearance CSF Color CSF WBC CSF RBC CSF Neutrophils CSF Lymphocytes CSF Monocytes % CSF Other Cells % CSF Appearance (b) CSF Glucose CSF Total Protein CSF C.neoform/gat PCR CSF CMV DNA (PCR) CSF Enterovirus (PCR) CSF E. coli K1 (PCR) CSF H. influenzae (PCR) CSF HSV I (PCR) CSF HSV II (PCR) CSF HHV 6 (PCR) CSF L.monocytogenes PCR CSF N. meningitidis PCR CSF Parechovirus (PCR) CSF S. agalactiae (PCR) CSF S. pneumoniae (PCR) CSF VZV (PCR) Respiratory Panel [place] Adenovirus (Rapid PCR) B.pert (TEM-PCR) B.parapertussis DNA PCR C. pneumoniae DNA (PCR) Coronavirus OC43 (PCR) Coronavirus HKU1 (PCR) Coronavirus 229E (PCR) Coronavirus NL63 (PCR) Human Metapneumovir PCR Influenza A (RT-PCR) Influenza B (RT-PCR) M. pneumoniae (PCR) Parainfluenza 1 (PCR) Parainfluenza 2 (PCR) Parainfluenza 3 (PCR) Parainfluenza 4 (PCR) RSV (PCR) Entero/Rhino (PCR) SARS-CoV-2 RNA (RT-PCR) Microbiology Microbiology Results: Microbiology 05/27/24 17:38 Gram Stain - Final Cerebrospinal Fluid CSF Examination - Final Fluid Description - Final CSF Culture - Preliminary No growth to date. Assessment and Plan (1) Acute hyponatremia: Status: Acute (2) Meningitis: Status: Acute Plan Pt is a 68-year-old male with a PMH significant for?prostate cancer s/p radical prostatectomy, nephrolithiasis, osteoarthritis, HLD, HTN, metastatic melanoma currently on chemotherapy follows with Dr. Smalls who presents to the ED with?severe headache x3 days. 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 Headache 2/2 acute Meningitis , viral vs bacterial CT of head negative for acute abnormality CSF suggestive of possible meningitis with elevated WBCs CSF viral panel negative cultures pending covered with IV antibiotics Vancomycin, Ceftriaxone and add Ampicillin ID & Neurology consults Fioricet prn Acute hyponatremia Sodium 124 this morning Likely secondary to SIADH in the setting of chemotherapy and menigitis 1200 mL fluid restriction Oncology consult, follows with Dr. Smalls Follow sodium closely HLD Continue statin HTN Continue enalapril Hold hydrochlorothiazide due to hyponatremia Full Code DVT Prophylaxis: Lovenox Pt will require a hospitalization overnight for treatment of?acute hyponatremia likely secondary to iatrogenic SIADH in the setting of chemotherapy and IV antibiotics for meningitis pending final cultures Quality Stroke Does the patient have a stroke diagnosis?: No VTE Prior VTE?: No VTE Risk Level:: Medical - moderate - high VTE Device Contraindication: Treatment Not Indicated VTE Drug Contraindication: N/A - Med Ordered
[2024-05-28] MEDS: Ampicillin Sodium 2 GM in 0.9 % Sodium Chloride 100 ML IV ×2 (12:43→16:14)
[2024-05-28] MEDS: Urea 15 GM POWDER 30 GM PO ×2 (12:43→20:06)
[2024-05-28 13:11] VITALS: BP 93/50; PULSE 76; RESP 18; TEMP 36.5; O2SAT 93
--- NOTE | 2024-05-28 14:35 | MHC.CM.PN ---
PT REPORTS HE LIVES ALONE AND IS INDEPENDENT WITH CARE HE HAS NO SERVICES AND NO DME HCP ON FILE PCP: ARETHA MAXWELL IMM AND RIGHTS DELIVERED DCP: HOME NO SERVICES VIA PRIVATE TRANSPORT
[2024-05-28 14:57] VITALS: BP 115/52; PULSE 73; RESP 16; TEMP 36.7; O2SAT 92
[2024-05-28 16:09] LABS: Anion Gap 13 (12-20); Blood Urea Nitrogen 22 mg/dL (9-16); Calcium 8.5 mg/dL (8.4-10.2); Carbon Dioxide 25 mmol/L (22-29); Chloride 89 mmol/L (96-108); Creatinine Clr Calc Pharmacy 82.2; Estimated Glomerular Filt Rate > 60; Glucose Random 103 mg/dL (60-115); Potassium 3.9 mmol/L (3.3-5.1); Sodium 123 mmol/L (135-145)
[2024-05-28] MEDS: Enoxaparin Sodium 40 MG/0.4 ML SYRINGE SUBCUT (16:17)
[2024-05-28] MEDS: Morphine Sulfate 4 MG/ML CARTRIDGE IVPUSH (16:17)
[2024-05-28 16:20] LABS: Vancomycin Random 12.9 mcg/mL (15-20)
[2024-05-28] MEDS: cefTRIAXone sodium 2 GM VIAL IVPUSH (17:40)
[2024-05-28] MEDS: methylPREDNISolone Sod Succ 40 MG/ML VIAL 30 MG IVPUSH (18:31)
[2024-05-28] MEDS: Sodium Chloride Tab 1 GM TABLET 2 GM PO ×2 (18:32→20:06)
[2024-05-28 19:37] VITALS: BP 142/93; PULSE 99; RESP 16; TEMP 39.6; O2SAT 93
[2024-05-28] MEDS: Atorvastatin Calcium 10 MG TABLET PO (20:06)
[2024-05-28 22:24] LABS: Anion Gap 12 (12-20); Blood Urea Nitrogen 33 mg/dL (9-16); Calcium 8.5 mg/dL (8.4-10.2); Carbon Dioxide 27 mmol/L (22-29); Chloride 92 mmol/L (96-108); Estimated Glomerular Filt Rate > 60; Glucose Random 134 mg/dL (60-115); Potassium 4.8 mmol/L (3.3-5.1); Sodium 126 mmol/L (135-145)
[2024-05-28 22:40] VITALS: TEMP 37.7
[2024-05-29 03:02] VITALS: BP 129/71; PULSE 59; RESP 19; TEMP 36.6; O2SAT 92
[2024-05-29] MEDS: vancomycin HCL 1,000 MG in 0.9 % Sodium Chloride 250 ML 270 MG IV ×2 (05:25→19:08)
[2024-05-29 06:17] LABS: MANUAL DIFF FLAG NO
[2024-05-29 06:22] LABS: Basophils Percent Auto 0.2 % (0-2); Eosinophils Percent Auto 0.5 % (0-4); Hematocrit 33.1 % (42.0-52.0); Hemoglobin 11.3 g/dl (14.0-18.0); Imm Gran Abs Auto 0.05 X10*3/uL (0.00-0.03); Imm Gran Pct Auto 0.8 % (0.0-0.4); Lymphocytes Absolute Auto 0.6 X10*3/uL (1.2-4.9); Lymphocytes Percent Auto 9.6 % (20-40); Mean Corpuscular HGB Conc 34.1 g/dl (31.0-36.0); Mean Corpuscular Hemoglobin 29.6 pg (27.0-33.0); Mean Corpuscular Volume 86.6 fL (80.0-98.0); Mean Platelet Volume 8.2 fL (9.4-12.4); Monocytes Absolute Auto 0.2 X10*3/uL (0.1-1.2); Monocytes Percent Auto 3.2 % (2-11); Neutrophils Absolute Auto 5.3 x10*3/uL (2.0-8.3); Neutrophils Percent Auto 85.7 % (45-73); Platelet Count 212 X10*3/uL (160-400); Red Blood Count 3.82 X10*6/uL (4.60-5.80); Red Cell Distribution Width 13.9 % (11.0-16.0); White Blood Count 6.2 X10*3/uL (4.8-10.8)
[2024-05-29] MEDS: diphenhydrAMINE HCL 25 MG CAPSULE PO ×3 (06:32→17:45)
[2024-05-29 06:40] LABS: Anion Gap 13 (12-20); Blood Urea Nitrogen 28 mg/dL (9-16); Carbon Dioxide 28 mmol/L (22-29); Chloride 95 mmol/L (96-108); Creatinine Clr Calc Pharmacy 89.9; Estimated Glomerular Filt Rate > 60; Glucose Random 133 mg/dL (60-115); Potassium 4.9 mmol/L (3.3-5.1); Sodium 131 mmol/L (135-145)
[2024-05-29] MEDS: SODIUM CHLORIDE 0.9% IV ×3 (06:41→21:07)
[2024-05-29] MEDS: ACYCLOVIR SODIUM IV ×3 (06:41→21:07)
[2024-05-29 07:55] VITALS: BP 124/68; PULSE 69; RESP 14; TEMP 36.8; O2SAT 96
[2024-05-29] MEDS: Ascorbic Acid 500 MG TABLET 1000 MG PO (08:17)
[2024-05-29] MEDS: methylPREDNISolone Sod Succ 40 MG/ML VIAL 30 MG IVPUSH ×2 (08:17→19:07)
[2024-05-29] MEDS: Multivitamin TABLET 1 TAB PO (08:17)
[2024-05-29] MEDS: 0.9 % Sodium Chloride Flush 3 ML SYRINGE IVFLUSH ×2 (08:17→15:27)
--- NOTE | 2024-05-29 08:45 | P.CONNP_ITS ---
History of Present Illness Reason for Consult Consult date: 05/29/24 Chief Complaint Chief complaint: Hyponatremia History of Present Illness Narrative: Pt is a 68 y/o male with a medical history of metastitic melanoma (currently on chemotherapy, follows Dr Smalls), prostate cancer s/p radical prostatectomy, nephrolithiasis, osteoarthritis, HLD, HTN. Presented 05/27 to ED with severe headache x3 days, CFS fluid suggestive of meningitis, found to have sodium of 126. Nephrology consulted for hyponatremia. Sodium within normal limits at baseline. 05/27/23 sodium 126, 05/28 was 124, 123, 126 05/29 is 131 patient has been on a fluid restriction. 05/27 urine osmolality 330, urine sodium 89 ; urine specific gravity 1.030 renal function is normal/at baseline- creatinine 0.97, GFR >[address] Smalls, oncology for management of melanoma. Presumed metastatic melanoma diagnosed Feb 2024 (lymphadenopathy initial presentation), brain MRI showed no evidence of metastatic disease. Started on ipilimumab and nivolumab followed by nivolymab maintenance in March 2024. Also on prednisone. pt reports just recently diagnosed with melanoma and started treatments about 9 weeks ago states he started to have a severe headache with some nausea three days prior to admission, reports never usually gets a headache. nausea worsened, so he came to the hospital 05/27 for workup reports currently headache is improved, nausea improved denies chest pain, abdominal pain, flank pain denies difficulty urinating, denies urinary frequency, urgency, incontinence, pain. denies other new symptoms/concerns. Review of Systems Constitutional: Reports fatigue and Denies headache(s) Denies dizziness and Denies headache(s) Cardiovascular: Denies chest pain, Denies leg edema, Denies lightheadedness and Denies dyspnea Respiratory: Denies cough and Denies dyspnea Gastrointestinal: Denies abdominal pain, Denies constipation, Denies diarrhea, Reports nausea (improving) and Denies vomiting Genitourinary: Denies hematuria, Denies oliguria, Denies dysuria, Denies flank pain and Denies urinary frequency Musculoskeletal: Denies arthralgias and Denies muscle cramps Skin/Breast: Denies rash Denies dizziness and Denies headache(s) Endocrine: Reports fatigue PMFSH Past Medical History Medical History PSA elevation Overweight (BMI 25.0-29.9) Finger fracture, right Nephrolithiasis Osteoarthritis Hypercholesterolemia Hypertension Family History Family History Mother Bladder cancer Father Prostate cancer Surgical History Surgical History History of tonsillectomy Social History Social History Household Members: None Housing: House Do you presently have visiting nurse or other home services: No Alcohol intake: former Patient Tobacco Use Status: Never used Tobacco e-Cigarette/Vaping Use: Never Used Second Hand Smoke Exposure: No Advance Directives Date on File: 09/22/22 service: Yes Current occupational status: employed Sexual orientation: Straight/Heterosexual Gender identity: Male Cognitive needs: No Hearing needs: No Vision needs: Yes Meds Allergies Allergy/AdvReac Type Severity Reaction Status Date / Time No Known Allergies Allergy Verified 05/27/24 08:24 Active Medications: Current Medications Acetaminophen (Acetaminophen 325 Mg Tablet) 650 mg PO Q6H PRN PRN Reason: Pain, Mild (Pain Scale 1-3), fever or headache Last Admin: 05/28/24 20:05 Dose: 650 mg Acetaminophen/Butalbital/Caffeine (Butalb/Acetamin/Caff 50/325/40 Tablet) 1 tab PO Q4H PRN PRN Reason: Migraine Headache Last Admin: 05/28/24 12:43 Dose: 1 tab Ascorbic Acid (Ascorbic Acid 500 Mg Tablet) 1,000 mg PO DAILY [facility] Last Admin: 05/29/24 08:17 Dose: 1,000 mg Atorvastatin Calcium (Atorvastatin Calcium 10 Mg Tablet) 10 mg PO BEDTIME [facility] Last Admin: 05/28/24 20:06 Dose: 10 mg Benzonatate (Benzonatate 100 Mg Capsule) 100 mg PO TID PRN PRN Reason: Cough Calcium Carbonate (Calcium Carbonate 750 Mg Tab.Chew) 750 mg PO Q4H PRN PRN Reason: Heartburn Ceftriaxone Sodium (Ceftriaxone Sodium 2 Gm Vial) 2 gm IVPUSH Q24H [facility] Last Admin: 05/28/24 17:40 Dose: 2 gm Diphenhydramine HCl (Diphenhydramine Hcl 25 Mg Capsule) 25 mg PO BID PRN PRN Reason: Rash Last Admin: 05/29/24 06:32 Dose: 25 mg Enalapril Maleate (Enalapril Maleate 10 Mg Tablet) 10 mg PO DAILY [facility]; Protocol Last Admin: 05/28/24 10:02 Dose: 10 mg Enoxaparin Sodium (Enoxaparin Sodium 40 Mg/0.4 Ml Syringe) 40 mg SUBCUT Q24H [facility] Last Admin: 05/28/24 16:17 Dose: 40 mg Acyclovir Sodium 860 mg/ (Sodium Chloride) 267.2 mls @ 267.2 mls/hr IV Q8H [facility] Last Infusion: 05/29/24 08:17 Dose: Infused Vancomycin HCl 1,000 mg/ (Sodium Chloride) 270 mls @ 270 mls/hr IV Q12H [facility] Last Infusion: 05/29/24 06:28 Dose: Infused Magnesium Hydroxide (Milk Of Magnesia 30 Ml Oral.Susp) 30 ml PO DAILY PRN PRN Reason: Constipation Melatonin (Melatonin 3 Mg Tablet) 6 mg PO BEDTIME PRN PRN Reason: Insomnia Methylprednisolone Sodium Succinate (Methylprednisolone Sod Succ 40 Mg/Ml Vial) 30 mg IVPUSH Q12H [facility] Last Admin: 05/29/24 08:17 Dose: 30 mg Morphine Sulfate (Morphine Sulfate 4 Mg/Ml Cartridge) 4 mg IVPUSH Q4H PRN; Protocol PRN Reason: Pain, Severe (Pain Scale 7-10) Last Admin: 05/28/24 16:17 Dose: 4 mg Multivitamins/Vitamin C (Multivitamin Tablet) 1 tab PO DAILY [facility] Last Admin: 05/29/24 08:17 Dose: 1 tab Ondansetron HCl (Ondansetron Hcl 4 Mg/2 Ml Vial) 4 mg IVPUSH Q8H PRN PRN Reason: Nausea and Vomiting Pharmacy Consult (Consult Rx Vancomycin Dosing) 1 each MISCELLANE DAILY PRN PRN Reason: Consult order Sodium Chloride (0.9 % Sodium Chloride Flush 3 Ml Syringe) 3 ml IVFLUSH QSHIFT [facility] Last Admin: 05/29/24 08:17 Dose: 3 ml Sodium Chloride (Sodium Chloride Tab 1 Gm Tablet) 2 gm PO BID [facility] Last Admin: 05/28/24 20:06 Dose: 2 gm Home Medications ?Medication ?Instructions ?Recorded ?Confirmed ?Last Taken ?Type ascorbic acid (vitamin C) 1,000 mg 1 g PO DAILY 05/21/20 05/27/24 05/27/24 09:00 History tablet multivitamin-ferrous 1 tab PO DAILY 05/21/20 05/27/24 05/27/24 09:00 History fumarate-folic acid 18 mg-400 mcg tablet (Centrum) omega-3 fatty acids 1,000 mg 1,000 mg PO DAILY 05/21/20 05/27/24 05/27/24 09:00 History capsule psyllium husk 0.4 gram capsule 0.4 g PO BEDTIME 05/25/22 05/27/24 Unknown History (Metamucil) hydrochlorothiazide 12.5 mg capsule 12.5 mg PO DAILY 03/20/24 05/27/24 05/27/24 09:00 History acetaminophen 500 mg tablet 1,000 mg PO Q6H PRN Headache 05/26/24 05/27/24 Unknown History (Acetaminophen Extra Strength) atorvastatin 10 mg tablet 10 mg PO BEDTIME 05/27/24 05/27/24 Unknown History diphenhydramine HCl 25 mg tablet 25 mg PO BID PRN Rash 05/27/24 05/27/24 Unknown History (Benadryl Allergy) sildenafil 100 mg tablet 100 mg PO DAILY PRN Erectile 05/27/24 05/27/24 Unknown History Dysfunction Physical Exam Vital Signs: Last Vital Signs Temp 98.2 F 05/29/24 07:55 Pulse 69 05/29/24 07:55 Resp 14 05/29/24 07:55 BP 124/68 05/29/24 07:55 Pulse Ox 96 05/29/24 07:55 O2 Del Method Room Air 05/29/24 07:55 BMI result Body Mass Index 29.5 Const General: no acute distress, alert and awake Resp Effort & Inspection: normal respiratory effort and able to speak in complete sentences Auscultation: clear to auscultation bilaterally Cardio Jugular venous distension: no JVD Rate: regular rate Rhythm: regular rhythm Heart sounds: S1 normal heart sound present and S2 normal heart sound present GI Palpation (GI): Soft to palpation and nontender General: Yes no CVA tenderness Back/Spine/Pelvis Back: no CVA tenderness Skin Rashes: no rashes Extrem General: No edema Results Lab Results 05/29/24 05:52 05/29/24 05:52 Lab results: Chemistry 05/27/24 05/27/24 05/28/24 09:45 16:49 05:24 Sodium 126 L 126 L 124 L Potassium 3.8 3.9 4.9 D Carbon Dioxide 32 H 31 H 28 BUN 9 7 L 13 Creatinine 0.73 0.99 1.26 Calcium 9.2 9.6 9.0 D 05/28/24 05/28/24 05/29/24 15:31 22:02 05:52 Sodium 123 L 126 L 131 L Potassium 3.9 D 4.8 D Carbon Dioxide 25 27 BUN 22 H 33 H Creatinine 1.06 0.98 Calcium 8.5 8.5 05/29/24 05/29/24 05/29/24 05:52 05:52 05:52 Sodium Cancelled Potassium 4.9 Cancelled Carbon Dioxide 28 Cancelled BUN 28 H Creatinine Calcium 05/29/24 05/29/24 05/29/24 05:52 05:52 05:52 Sodium Potassium Carbon Dioxide BUN Cancelled Creatinine 0.97 Cancelled Calcium 9.0 Cancelled Hematology 05/27/24 05/28/24 05/29/24 09:45 05:24 05:52 WBC 8.1 6.9 6.2 Hgb 13.0 L 12.4 L 11.3 L Plt Count 241 244 212 Urinalysis 05/27/24 13:22 Urine Color Yellow Urine Appearance Clear Urine pH 6.5 Ur Specific Dana >= 1.030 H Urine Protein Negative Urine Glucose (UA) Negative Urine Ketones Negative Urine Blood Negative Urine Nitrite Negative Ur Leukocyte Esterase Negative Urine Studies 05/27/24 13:23 Urine Osmolality 330 L Assessment and Plan (1) Meningitis: Status: Acute (2) Acute hyponatremia: Status: Acute Plan Hyponatremia likely secondary to SIADH New, improving; most likely secondary to SIADH as patient appears euvolemic- multifactorial from nasuea, hctz, and nivolumab will check cortisol level given nivolumab can also cause adrenal insufficiency should continue current regimen of 1.2L fluid restriction, continue to monitor serum sodium closely; avoid sodium correction of 0.5mmol/L/hr or 10mmol/24hr Discussed with Dr Petersen Procedures Date of Service Date of Service: 05/29/24
--- NOTE | 2024-05-29 09:58 | PM.HEMONCCN ---
Subjective - Subjective Chief complaint: Headaches Patient: known to practice within the last 3 years Consult date: 05/29/24 Primary Care Provider: Raghu Contreras MD Medical Summary: Diagnosis: De bassem metastatic melanoma 02/2024 Past medical history of prostate cancer, status post radical prostatectomy presenting. He was seen by surgeon in December with a 2 month history of right groin mass, he had no symptoms of pain, loss of appetite or weight loss. Pelvic MRI with contrast on 01/31/2024 revealed right inguinal lymphadenopathy measuring up to 3.8 x 4.2 cm with surrounding tissue stranding concerning for metastatic disease. On 02/08/2024 he had biopsy of this mass which revealed metastatic melanoma. Immunostains histochemical stains reactive with [facility]-1, HMB45, SOX 1, PRAME. Patient was never treated for melanoma. PET scan performed at [facility] on 03/02/2024 revealed metabolically active retroperitoneal lymph nodes along the aorta with SUV 13.2, FDG avid left common iliac nodes SUV max 15.2, FDG active right external iliac and right inguinal lymph nodes SUV max up to 17.9. FDG avid scattered mediastinal lymph nodes with SUV max up to 4.9. CT chest/abdomen and pelvis revealed bulky right inguinal, right external and internal iliac lymphadenopathy, para-aortic retroperitoneal lymphadenopathy consistent with metastatic adelaida disease. Incompletely imaged bulky right inguinal and femoral lymphadenopathy, largest lymph node measuring 5.9 x 4.2 cm. Bony metastasis in L4, L5, S1 and S2. Fatty infiltration of liver. 1 cm enhancing splenic nodules suspicious. In the chest there were suspicious right upper lobe nodule, mediastinal lymphadenopathy measuring up to 1.7 cm. Brain MRI showed no evidence of metastatic disease. He was started on ipilimumab and nivolumab followed by nivolumab maintenance, in March 2024. Stat right lower extremity Doppler was negative for DVT. Enlarged inguinal lymph nodes seen in the groin measuring up to 7.4 x 5.6 cm which is probably the cause of his right leg swelling. HPI - Consult Narrative Reason for consult: Hyponatremia, meningitis Narrative: Jesús Vera is a 68 year old male with metastatic melanoma, well known to Oncology Service who presented to emergency department on 05/27/2024 with complaints of worsening headaches associated with nausea which started about 2 days prior to admission. He has been receiving immunotherapy with ipilimumab and nivolumab for metastatic prostate cancer, he received 3rd cycle couple of weeks ago which he tolerated well except for generalized body rash. He has been on Benadryl as well as prednisone for the rash. He tapered himself off the prednisone on 05/22/2024. He had workup in the emergency room which revealed possibility of viral meningitis. He has been started on antibiotics. He is feeling much better now in terms of headache. He had 1 temperature spike after admission but reports no fever or chills at home. He had nausea on Wednesday, this has resolved completely. He has been suffering from constipation since he started treatment but no diarrhea or abdominal pain. Since he started treatment, right groin lymphadenopathy has gone away, he can not feel anything in that region. Review of Systems - Constitutional Reports as per HPI, Denies poor appetite, Denies weight loss - Eyes Reports no additional eye complaints, Denies blurry vision - ENT Reports no additional ear, nose, mouth, and throat complaints - Cardiovascular Reports no additional cardiovascular complaints - Respiratory Reports no additional respiratory complaints - Neurologic Denies abnormal speech, Denies dizziness, Denies headache(s), Denies sensory deficit [facility] Medical History: Medical History (Last Reviewed 05/29/24 @ 08:33 by Isidra Armstrong RN) Finger fracture, right Hypercholesterolemia Hypertension Nephrolithiasis Osteoarthritis Overweight (BMI 25.0-29.9) PSA elevation Family History: Family History (Last Reviewed 05/27/24 @ 15:44 by KAYLAH Beltran) Mother Bladder cancer Father Prostate cancer Surgical History: Surgical History (Last Reviewed 05/29/24 @ 08:33 by Isidra Armstrong RN) History of tonsillectomy Social History: Social History (Last Reviewed 05/27/24 @ 15:44 by KAYLAH Beltran) Living Situation History: Household Members: None Housing: House Do you presently have visiting nurse or other home services: No Tobacco History: Patient Tobacco Use Status: Never used Tobacco e-Cigarette/Vaping Use: Never Used Second Hand Smoke Exposure: No Advance Directives: Advance Directives Date on File: 09/22/22 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 Current occupational status: employed Sex/Gender Assessment: Sexual orientation: Straight/Heterosexual Gender identity: Male Home Medications and Allergies Current Medications: Current Medications Acetaminophen (Acetaminophen 325 Mg Tablet) 650 mg PO Q6H PRN PRN Reason: Pain, Mild (Pain Scale 1-3), fever or headache Last Admin: 05/28/24 20:05 Dose: 650 mg Acetaminophen/Butalbital/Caffeine (Butalb/Acetamin/Caff 50/325/40 Tablet) 1 tab PO Q4H PRN PRN Reason: Migraine Headache Last Admin: 05/28/24 12:43 Dose: 1 tab Ascorbic Acid (Ascorbic Acid 500 Mg Tablet) 1,000 mg PO DAILY [facility] Last Admin: 05/29/24 08:17 Dose: 1,000 mg Atorvastatin Calcium (Atorvastatin Calcium 10 Mg Tablet) 10 mg PO BEDTIME [facility] Last Admin: 05/28/24 20:06 Dose: 10 mg Benzonatate (Benzonatate 100 Mg Capsule) 100 mg PO TID PRN PRN Reason: Cough Calcium Carbonate (Calcium Carbonate 750 Mg Tab.Chew) 750 mg PO Q4H PRN PRN Reason: Heartburn Ceftriaxone Sodium (Ceftriaxone Sodium 2 Gm Vial) 2 gm IVPUSH Q24H [facility] Last Admin: 05/28/24 17:40 Dose: 2 gm Diphenhydramine HCl (Diphenhydramine Hcl 25 Mg Capsule) 25 mg PO BID PRN PRN Reason: Rash Last Admin: 05/29/24 06:32 Dose: 25 mg Enalapril Maleate (Enalapril Maleate 10 Mg Tablet) 10 mg PO DAILY [facility]; Protocol Last Admin: 05/28/24 10:02 Dose: 10 mg Enoxaparin Sodium (Enoxaparin Sodium 40 Mg/0.4 Ml Syringe) 40 mg SUBCUT Q24H [facility] Last Admin: 05/28/24 16:17 Dose: 40 mg Acyclovir Sodium 860 mg/ (Sodium Chloride) 267.2 mls @ 267.2 mls/hr IV Q8H [facility] Last Infusion: 05/29/24 08:17 Dose: Infused Vancomycin HCl 1,000 mg/ (Sodium Chloride) 270 mls @ 270 mls/hr IV Q12H [facility] Last Infusion: 05/29/24 06:28 Dose: Infused Magnesium Hydroxide (Milk Of Magnesia 30 Ml Oral.Susp) 30 ml PO DAILY PRN PRN Reason: Constipation Melatonin (Melatonin 3 Mg Tablet) 6 mg PO BEDTIME PRN PRN Reason: Insomnia Methylprednisolone Sodium Succinate (Methylprednisolone Sod Succ 40 Mg/Ml Vial) 30 mg IVPUSH Q12H [facility] Last Admin: 05/29/24 08:17 Dose: 30 mg Morphine Sulfate (Morphine Sulfate 4 Mg/Ml Cartridge) 4 mg IVPUSH Q4H PRN; Protocol PRN Reason: Pain, Severe (Pain Scale 7-10) Last Admin: 05/28/24 16:17 Dose: 4 mg Multivitamins/Vitamin C (Multivitamin Tablet) 1 tab PO DAILY [facility] Last Admin: 05/29/24 08:17 Dose: 1 tab Ondansetron HCl (Ondansetron Hcl 4 Mg/2 Ml Vial) 4 mg IVPUSH Q8H PRN PRN Reason: Nausea and Vomiting Pharmacy Consult (Consult Rx Vancomycin Dosing) 1 each MISCELLANE DAILY PRN PRN Reason: Consult order Sodium Chloride (0.9 % Sodium Chloride Flush 3 Ml Syringe) 3 ml IVFLUSH QSHIFT [facility] Last Admin: 05/29/24 08:17 Dose: 3 ml Sodium Chloride (Sodium Chloride Tab 1 Gm Tablet) 2 gm PO BID [facility] Last Admin: 05/28/24 20:06 Dose: 2 gm Home Medications ?Medication ?Instructions ?Recorded ?Confirmed ?Type ascorbic acid (vitamin C) 1,000 mg 1 g PO DAILY 05/21/20 05/27/24 History tablet multivitamin-ferrous 1 tab PO DAILY 05/21/20 05/27/24 History fumarate-folic acid 18 mg-400 mcg tablet (Centrum) omega-3 fatty acids 1,000 mg 1,000 mg PO DAILY 05/21/20 05/27/24 History capsule psyllium husk 0.4 gram capsule 0.4 g PO BEDTIME 05/25/22 05/27/24 History (Metamucil) hydrochlorothiazide 12.5 mg capsule 12.5 mg PO DAILY 03/20/24 05/27/24 History acetaminophen 500 mg tablet 1,000 mg PO Q6H PRN Headache 05/26/24 05/27/24 History (Acetaminophen Extra Strength) atorvastatin 10 mg tablet 10 mg PO BEDTIME 05/27/24 05/27/24 History diphenhydramine HCl 25 mg tablet 25 mg PO BID PRN Rash 05/27/24 05/27/24 History (Benadryl Allergy) sildenafil 100 mg tablet 100 mg PO DAILY PRN Erectile 05/27/24 05/27/24 History Dysfunction Allergies Allergy/AdvReac Type Severity Reaction Status Date / Time No Known Allergies Allergy Verified 05/27/24 08:24 Physical Exam Vital signs: Vital Signs Temp 98.2 F 05/29/24 07:55 Pulse 69 05/29/24 07:55 Resp 14 05/29/24 07:55 BP 124/68 05/29/24 07:55 Pulse Ox 96 05/29/24 07:55 O2 Del Method Room Air 05/29/24 07:55 Intake & Output 05/28/24 05/29/24 05/29/24 18:59 06:59 18:59 Intake Total 1197.2 / 2104.4 907.2 / 2104.4 267.2 / 267.2 Balance 1197.2 / 2104.4 907.2 / 2104.4 267.2 / 267.2 Intake: Intake, Oral Amount 480 / 600 120 / 600 Intake, IV Amount 717.2 / 1504.4 787.2 / 1504.4 267.2 / 267.2 Acyclovir Sodium 860 mg In 0.9 267.2 / 534.4 267.2 / 534.4 267.2 / 267.2 % Sodium Chloride 250 ml @ 267. 2 mls/hr IV Q8H [facility] Rx#: [id number] Ampicillin Sodium 2 gm In 0.9 % 200 / 200 Sodium Chloride 100 ml @ 200 mls/hr IV Q4H [facility] Rx#: [id number] vancomycin HCL 1,000 mg In 0.9 270 / 270 % Sodium Chloride 250 ml @ 270 mls/hr IV Q12H [facility] Rx#: [id number] vancomycin HCL 1,250 mg In 0.9 250 / 500 250 / 500 % Sodium Chloride 250 ml @ 166. 667 mls/hr IV Q12H [facility] Rx#: [id number] Other: Lunch % Eaten 50% Eating (Feeding) Ability Independent Number of Unmeasured Voids 1 Urine Bathroom Last Bowel Movement 05/25/24 Weight 98.7 kg [place] Weight in Grams 70900 Weight 98.7 kg - Constitutional Present: no acute distress - Routine HEENT Exam Head: Present: normal inspection Eye: Present: EOMI, PERRL - Routine Neck Exam Present: supple. Absent: lymphadenopathy - Routine Respiratory Exam Present: CTAB. Absent: accessory muscle use - Routine Cardiovascular Exam Cardiovascular: Present: RRR, S1, S2 - Routine Abdominal Exam Present: soft. Absent: mass - Routine Extremities Exam Present: pulses intact. Absent: pedal edema - Routine Skin Exam Present: intact - Routine Neurological Exam Present: alert, oriented X3 Hem/Onc Consult Result - Labs CBC & Chem 7: 05/29/24 05:52 05/29/24 10:17 Labs: Short CBC 05/29/24 Range/Units 05:52 WBC 6.2 (4.8-10.8) X10*3/uL Hgb 11.3 L (14.0-18.0) g/dl Hct 33.1 L (42.0-52.0) % Plt Count 212 (160-400) X10*3/uL BMP 05/28/24 05/28/24 05/29/24 15:31 22:02 05:52 Sodium 123 L 126 L 131 L Potassium 3.9 D 4.8 D Chloride 89 L 92 L Carbon Dioxide 25 27 BUN 22 H 33 H Creatinine 1.06 0.98 Calcium 8.5 8.5 05/29/24 05/29/24 05/29/24 05:52 05:52 05:52 Sodium Cancelled Potassium 4.9 Cancelled Chloride 95 L Cancelled Carbon Dioxide 28 BUN Creatinine Calcium 05/29/24 05/29/24 05/29/24 05:52 05:52 05:52 Sodium Potassium Chloride Carbon Dioxide Cancelled BUN 28 H Cancelled Creatinine 0.97 Cancelled Calcium 9.0 05/29/24 05:52 Sodium Potassium Chloride Carbon Dioxide BUN Creatinine Calcium Cancelled Assessment and Plan Patient Active problem list reviewed?: Yes (1) Melanoma Problem details: Right thigh mass January 2024 biopsy March 2024 Soft tissue, right anterior upper thigh, biopsy: Melanoma, presumed metastatic. Status: Chronic Assessment and plan: 1. This is a 68-year-old male with metastatic melanoma diagnosed in January 2024. He was started on ipilimumab and nivolumab followed by nivolumab maintenance, in March 2024. He was on a long prednisone taper for generalized rash secondary to treatment, he stopped prednisone on 05/21/2024. He developed sudden and severe headache middle of last week, he presented to ED on 05/27/2024. CT head with contrast was negative. CSF shows increase in WBC along with total protein raising concern for meningitis. So far no bacteria or virus seen, he has empirically being treated for bacterial and viral meningitis. Await ID input. He developed hyponatremia with low cortisol level, normal ACTH and TSH. This is probably secondary to recent steroids and subsequent secondary adrenal insufficiency. I recommended stress doses of steroid as he was mildly hypotensive yesterday. Sodium levels have been corrected with fluid restriction and urea tablets. Nephrology input appreciated. Patient is feeling a lot better overall but his treatment this week we will be postponed. I thank you for the consultation. - Time Spent With Patient Time Spent with Patient (in minutes): 25 Additional Coding: - Additional E/M codes Complex E/M visit Add On: CPT G2211
[2024-05-29 11:08] LABS: Anion Gap 11 (12-20); Blood Urea Nitrogen 23 mg/dL (9-16); Calcium 9.3 mg/dL (8.4-10.2); Carbon Dioxide 31 mmol/L (22-29); Chloride 95 mmol/L (96-108); Creatinine Clr Calc Pharmacy 100.2; Estimated Glomerular Filt Rate > 60; Glucose Random 165 mg/dL (60-115); Potassium 4.9 mmol/L (3.3-5.1); Sodium 132 mmol/L (135-145)
--- NOTE | 2024-05-29 11:43 | MHC.CM.PN ---
PER MD ROUNDS PATIENT NOT MEDICALLY CLEARED FOR DC. AWAITING ID CONSULT. CM WILL CONTINUE TO FOLLOW.
[2024-05-29 11:56] LABS: Cortisol Random 1.5 ug/dL
--- NOTE | 2024-05-29 12:06 | P.CNNE_ITS ---
History of Present Illness Data of Consult Service Date: 05/29/24 Primary Care Provider: Raghu Contreras MD [facility] Reason for consult: Headache 68 years old man who came to hospital with severe headache. He said that it started when he was passing his bowel and he was constipated. Headache did not get better and next day or 2 and got even worse any came to hospital. In hospital he was also noted have a temperature of 1 or [address] F[address] his initial head CT did not reveal any sign of subarachnoid hemorrhage. Lumbar puncture was performed which did not reveal RBCs but revealed abnormal numbers of WBCs. MRI of brain did not reveal any acute abnormality. With tentative diagnosis of meningitis he was being treated and was feeling better. Review of Systems 2 Review of Systems: No recent trauma. [facility] Past Medical History Medical History PSA elevation Overweight (BMI 25.0-29.9) Finger fracture, right Nephrolithiasis Osteoarthritis Hypercholesterolemia Hypertension Family History Family History Mother Bladder cancer Father Prostate cancer Surgical History Surgical History History of tonsillectomy Social History Social History Household Members: None Housing: House Do you presently have visiting nurse or other home services: No Alcohol intake: former Patient Tobacco Use Status: Never used Tobacco e-Cigarette/Vaping Use: Never Used Second Hand Smoke Exposure: No Advance Directives Date on File: 09/22/22 service: Yes Current occupational status: employed Sexual orientation: Straight/Heterosexual Gender identity: Male Cognitive needs: No Hearing needs: No Vision needs: Yes Meds Allergies Allergy/AdvReac Type Severity Reaction Status Date / Time No Known Allergies Allergy Verified 05/27/24 08:24 Active Medications: Current Medications Acetaminophen (Acetaminophen 325 Mg Tablet) 650 mg PO Q6H PRN PRN Reason: Pain, Mild (Pain Scale 1-3), fever or headache Last Admin: 05/28/24 20:05 Dose: 650 mg Acetaminophen/Butalbital/Caffeine (Butalb/Acetamin/Caff 50/325/40 Tablet) 1 tab PO Q4H PRN PRN Reason: Migraine Headache Last Admin: 05/28/24 12:43 Dose: 1 tab Ascorbic Acid (Ascorbic Acid 500 Mg Tablet) 1,000 mg PO DAILY [facility] Last Admin: 05/29/24 08:17 Dose: 1,000 mg Atorvastatin Calcium (Atorvastatin Calcium 10 Mg Tablet) 10 mg PO BEDTIME [facility] Last Admin: 05/28/24 20:06 Dose: 10 mg Benzonatate (Benzonatate 100 Mg Capsule) 100 mg PO TID PRN PRN Reason: Cough Calcium Carbonate (Calcium Carbonate 750 Mg Tab.Chew) 750 mg PO Q4H PRN PRN Reason: Heartburn Ceftriaxone Sodium (Ceftriaxone Sodium 2 Gm Vial) 2 gm IVPUSH Q24H [facility] Last Admin: 05/28/24 17:40 Dose: 2 gm Diphenhydramine HCl (Diphenhydramine Hcl 25 Mg Capsule) 25 mg PO Q4H PRN PRN Reason: Rash\itching Last Admin: 05/29/24 11:28 Dose: 25 mg Enalapril Maleate (Enalapril Maleate 10 Mg Tablet) 10 mg PO DAILY [facility]; Protocol Last Admin: 05/28/24 10:02 Dose: 10 mg Enoxaparin Sodium (Enoxaparin Sodium 40 Mg/0.4 Ml Syringe) 40 mg SUBCUT Q24H [facility] Last Admin: 05/28/24 16:17 Dose: 40 mg Acyclovir Sodium 860 mg/ (Sodium Chloride) 267.2 mls @ 267.2 mls/hr IV Q8H [facility] Last Infusion: 05/29/24 08:17 Dose: Infused Vancomycin HCl 1,000 mg/ (Sodium Chloride) 270 mls @ 270 mls/hr IV Q12H [facility] Last Infusion: 05/29/24 06:28 Dose: Infused Magnesium Hydroxide (Milk Of Magnesia 30 Ml Oral.Susp) 30 ml PO DAILY PRN PRN Reason: Constipation Melatonin (Melatonin 3 Mg Tablet) 6 mg PO BEDTIME PRN PRN Reason: Insomnia Methylprednisolone Sodium Succinate (Methylprednisolone Sod Succ 40 Mg/Ml Vial) 30 mg IVPUSH Q12H [facility] Last Admin: 05/29/24 08:17 Dose: 30 mg Morphine Sulfate (Morphine Sulfate 4 Mg/Ml Cartridge) 4 mg IVPUSH Q4H PRN; Protocol PRN Reason: Pain, Severe (Pain Scale 7-10) Last Admin: 05/28/24 16:17 Dose: 4 mg Multivitamins/Vitamin C (Multivitamin Tablet) 1 tab PO DAILY [facility] Last Admin: 05/29/24 08:17 Dose: 1 tab Ondansetron HCl (Ondansetron Hcl 4 Mg/2 Ml Vial) 4 mg IVPUSH Q8H PRN PRN Reason: Nausea and Vomiting Pharmacy Consult (Consult Rx Vancomycin Dosing) 1 each MISCELLANE DAILY PRN PRN Reason: Consult order Sodium Chloride (0.9 % Sodium Chloride Flush 3 Ml Syringe) 3 ml IVFLUSH QSHIFT [facility] Last Admin: 05/29/24 08:17 Dose: 3 ml Sodium Chloride (Sodium Chloride Tab 1 Gm Tablet) 2 gm PO BID [facility] Last Admin: 05/28/24 20:06 Dose: 2 gm Home Medications ?Medication ?Instructions ?Recorded ?Confirmed ?Last Taken ?Type ascorbic acid (vitamin C) 1,000 mg 1 g PO DAILY 05/21/20 05/27/24 05/27/24 09:00 History tablet multivitamin-ferrous 1 tab PO DAILY 05/21/20 05/27/24 05/27/24 09:00 History fumarate-folic acid 18 mg-400 mcg tablet (Centrum) omega-3 fatty acids 1,000 mg 1,000 mg PO DAILY 05/21/20 05/27/24 05/27/24 09:00 History capsule psyllium husk 0.4 gram capsule 0.4 g PO BEDTIME 05/25/22 05/27/24 Unknown History (Metamucil) hydrochlorothiazide 12.5 mg capsule 12.5 mg PO DAILY 03/20/24 05/27/24 05/27/24 09:00 History acetaminophen 500 mg tablet 1,000 mg PO Q6H PRN Headache 05/26/24 05/27/24 Unknown History (Acetaminophen Extra Strength) atorvastatin 10 mg tablet 10 mg PO BEDTIME 05/27/24 05/27/24 Unknown History diphenhydramine HCl 25 mg tablet 25 mg PO BID PRN Rash 05/27/24 05/27/24 Unknown History (Benadryl Allergy) sildenafil 100 mg tablet 100 mg PO DAILY PRN Erectile 05/27/24 05/27/24 Unknown History Dysfunction Physical Exam 2 Vital Signs: Vital Signs: Last Vital Signs Temp 98.2 F 05/29/24 07:55 Pulse 69 05/29/24 07:55 Resp 14 05/29/24 07:55 BP 124/68 05/29/24 07:55 Pulse Ox 96 05/29/24 07:55 O2 Del Method Room Air 05/29/24 07:55 BMI result Body Mass Index 29.5 Neuro: Other: He is alert and awake with normal spontaneity of speech fluency comprehension and affect. Balance and gait and normal. Face is symmetrical. Visual sparks are full. Results Labs 05/29/24 05:52 05/29/24 10:17 Labs: Short CBC 05/29/24 Range/Units 05:52 WBC 6.2 (4.8-10.8) X10*3/uL Hgb 11.3 L (14.0-18.0) g/dl Hct 33.1 L (42.0-52.0) % Plt Count 212 (160-400) X10*3/uL BMP 05/28/24 05/28/24 05/29/24 15:31 22:02 05:52 Sodium 123 L 126 L 131 L Potassium 3.9 D 4.8 D Chloride 89 L 92 L Carbon Dioxide 25 27 BUN 22 H 33 H Creatinine 1.06 0.98 Calcium 8.5 8.5 05/29/24 05/29/24 05/29/24 05:52 05:52 05:52 Sodium Cancelled Potassium 4.9 Cancelled Chloride 95 L Cancelled Carbon Dioxide 28 BUN Creatinine Calcium 05/29/24 05/29/24 05/29/24 05:52 05:52 05:52 Sodium Potassium Chloride Carbon Dioxide Cancelled BUN 28 H Cancelled Creatinine 0.97 Cancelled Calcium 9.0 05/29/24 05/29/24 05:52 10:17 Sodium 132 L Potassium 4.9 Chloride 95 L Carbon Dioxide 31 H BUN 23 H Creatinine 0.87 Calcium Cancelled 9.3 Microbiology Microbiology Results: Microbiology 05/27/24 17:38 Cerebrospinal Fluid Gram Stain - Final 05/27/24 17:38 Cerebrospinal Fluid CSF Examination - Final 05/27/24 17:38 Cerebrospinal Fluid Fluid Description - Final 05/27/24 17:38 Cerebrospinal Fluid CSF Culture - Preliminary No growth after 1 day 05/27/24 16:49 Blood - Venous Blood Culture - Preliminary No growth after 24 hours. 05/27/24 16:49 Blood - Venous Blood Culture - Preliminary No growth after 24 hours. Assessment and Plan (1) Meningitis: Status: Acute Probably meningitis though exact pathogen is unclear. He is already better I recommend guidance from infectious disease to figure out duration of treatment. Procedures Date of Service Date of Service: 05/29/24
--- NOTE | 2024-05-29 14:31 | HO.PM.IMPN ---
Subjective Subjective Date of Service: 05/29/24 Interval History: seen and evaluated this morning headache better Na improved to 131 no other overnight events Review of Systems Review of Systems: Yes all other systems are reviewed and are negative Physical Exam Vital Signs: Vital Signs: Last Vital Signs Temp 98.2 F 05/29/24 07:55 Pulse 69 05/29/24 07:55 Resp 14 05/29/24 07:55 BP 124/68 05/29/24 07:55 Pulse Ox 96 05/29/24 07:55 O2 Del Method Room Air 05/29/24 07:55 BMI result Body Mass Index 29.5 Const: Other: Constitutional : Awake, interactive, not in distress Neck : Normal inspection, Supple Cardiovascular : RRR, no JVP, no lower extremity edema Respiratory : good bilateral air entry, no crackles, wheezes or rhonchi Gastrointestinal: soft, lax, Normal bowel sounds, Non tender Skin : Warm, Dry Neurological : Alert & oriented x3, No focal deficit , CN 2-12 within normal Objective Data Active Medications Acetaminophen (Acetaminophen 325 Mg Tablet) 650 mg PO Q6H PRN PRN Reason: Pain, Mild (Pain Scale 1-3), fever or headache Last Admin: 05/28/24 20:05 Dose: 650 mg Documented By: REID Comments: oral temp 103.2 Acetaminophen/Butalbital/Caffeine (Butalb/Acetamin/Caff 50/325/40 Tablet) 1 tab PO Q4H PRN PRN Reason: Migraine Headache Last Admin: 05/28/24 12:43 Dose: 1 tab Documented By: BRITTANIE Ascorbic Acid (Ascorbic Acid 500 Mg Tablet) 1,000 mg PO DAILY [facility] Last Admin: 05/29/24 08:17 Dose: 1,000 mg Documented By: OANH Atorvastatin Calcium (Atorvastatin Calcium 10 Mg Tablet) 10 mg PO BEDTIME [facility] Last Admin: 05/28/24 20:06 Dose: 10 mg Documented By: REID Benzonatate (Benzonatate 100 Mg Capsule) 100 mg PO TID PRN PRN Reason: Cough Calcium Carbonate (Calcium Carbonate 750 Mg Tab.Chew) 750 mg PO Q4H PRN PRN Reason: Heartburn Ceftriaxone Sodium (Ceftriaxone Sodium 2 Gm Vial) 2 gm IVPUSH Q24H [facility] Last Admin: 05/28/24 17:40 Dose: 2 gm Documented By: BRITTANIE Diphenhydramine HCl (Diphenhydramine Hcl 25 Mg Capsule) 25 mg PO Q4H PRN PRN Reason: Rash\itching Last Admin: 05/29/24 11:28 Dose: 25 mg Documented By: OANH Enalapril Maleate (Enalapril Maleate 10 Mg Tablet) 10 mg PO DAILY [facility]; Protocol Last Admin: 05/28/24 10:02 Dose: 10 mg Documented By: BRITTANIE Enoxaparin Sodium (Enoxaparin Sodium 40 Mg/0.4 Ml Syringe) 40 mg SUBCUT Q24H [facility] Last Admin: 05/28/24 16:17 Dose: 40 mg Documented By: BRITTANIE Acyclovir Sodium 860 mg/ (Sodium Chloride) 267.2 mls @ 267.2 mls/hr IV Q8H [facility] Last Admin: 05/29/24 14:17 Dose: 267.2 mls/hr Documented By: OANH Vancomycin HCl 1,000 mg/ (Sodium Chloride) 270 mls @ 270 mls/hr IV Q12H [facility] Last Infusion: 05/29/24 06:28 Dose: Infused Documented By: REID Magnesium Hydroxide (Milk Of Magnesia 30 Ml Oral.Susp) 30 ml PO DAILY PRN PRN Reason: Constipation Melatonin (Melatonin 3 Mg Tablet) 6 mg PO BEDTIME PRN PRN Reason: Insomnia Methylprednisolone Sodium Succinate (Methylprednisolone Sod Succ 40 Mg/Ml Vial) 30 mg IVPUSH Q12H [facility] Last Admin: 05/29/24 08:17 Dose: 30 mg Documented By: OANH Morphine Sulfate (Morphine Sulfate 4 Mg/Ml Cartridge) 4 mg IVPUSH Q4H PRN; Protocol PRN Reason: Pain, Severe (Pain Scale 7-10) Last Admin: 05/28/24 16:17 Dose: 4 mg Documented By: BRITTANIE Multivitamins/Vitamin C (Multivitamin Tablet) 1 tab PO DAILY [facility] Last Admin: 05/29/24 08:17 Dose: 1 tab Documented By: OANH Ondansetron HCl (Ondansetron Hcl 4 Mg/2 Ml Vial) 4 mg IVPUSH Q8H PRN PRN Reason: Nausea and Vomiting Pharmacy Consult (Consult Rx Vancomycin Dosing) 1 each MISCELLANE DAILY PRN PRN Reason: Consult order Sodium Chloride (0.9 % Sodium Chloride Flush 3 Ml Syringe) 3 ml IVFLUSH QSHIFT [facility] Last Admin: 05/29/24 08:17 Dose: 3 ml Documented By: OANH Sodium Chloride (Sodium Chloride Tab 1 Gm Tablet) 2 gm PO BID [facility] Last Admin: 05/28/24 20:06 Dose: 2 gm Documented By: REID Labs 05/29/24 05:52 05/29/24 10:17 Labs: Laboratory Results - last 24 hr 05/28/24 05/28/24 05/29/24 15:31 22:02 05:52 MCV 86.6 MCH 29.6 MCHC 34.1 RDW 13.9 Plt Count 212 MPV 8.2 L Immature Gran % (Auto) 0.8 H Neut % (Auto) 85.7 H Lymph % (Auto) 9.6 L [place] % (Auto) 3.2 Eos % (Auto) 0.5 Baso % (Auto) 0.2 Lymph # (Auto) 0.6 L [place] # (Auto) 0.2 Eos # (Auto) 0.0 Baso # (Auto) 0.0 Abs Immat Gran (auto) 0.05 H Absolute Neuts (auto) 5.3 Absolute Nucleated RBC 0.000 Nucleated RBC % (auto) 0.0 Anion Gap 13 12 13 Estim Creat Clear Calc 82.2 89.0 Estimated GFR > 60 > 60 Random Glucose 103 134 H Calcium 8.5 8.5 Random Cortisol Random Vancomycin 12.9 L 05/29/24 05/29/24 05/29/24 05:52 05:52 05:52 MCV MCH MCHC RDW Plt Count MPV Immature Gran % (Auto) Neut % (Auto) Lymph % (Auto) [place] % (Auto) Eos % (Auto) Baso % (Auto) Lymph # (Auto) [place] # (Auto) Eos # (Auto) Baso # (Auto) Abs Immat Gran (auto) Absolute Neuts (auto) Absolute Nucleated RBC Nucleated RBC % (auto) Anion Gap Cancelled Estim Creat Clear Calc 89.9 Cancelled Estimated GFR > 60 Cancelled Random Glucose 133 H Calcium Random Cortisol Random Vancomycin 05/29/24 05/29/24 05/29/24 05:52 05:52 10:17 MCV MCH MCHC RDW Plt Count MPV Immature Gran % (Auto) Neut % (Auto) Lymph % (Auto) [place] % (Auto) Eos % (Auto) Baso % (Auto) Lymph # (Auto) [place] # (Auto) Eos # (Auto) Baso # (Auto) Abs Immat Gran (auto) Absolute Neuts (auto) Absolute Nucleated RBC Nucleated RBC % (auto) Anion Gap 11 L Estim Creat Clear Calc 100.2 Estimated GFR > 60 Random Glucose Cancelled 165 H Calcium 9.0 Cancelled 9.3 Random Cortisol 1.5 Random Vancomycin Microbiology Microbiology Results: Microbiology 05/27/24 17:38 Gram Stain - Final Cerebrospinal Fluid CSF Examination - Final Fluid Description - Final CSF Culture - Preliminary No growth after 1 day 05/27/24 16:49 Blood Culture - Preliminary Blood - Venous No growth after 24 hours. 05/27/24 16:49 Blood Culture - Preliminary Blood - Venous No growth after 24 hours. Assessment and Plan (1) Meningitis: Status: Acute (2) Acute hyponatremia: Status: Acute Plan Pt is a 68-year-old male with a PMH significant for?prostate cancer s/p radical prostatectomy, nephrolithiasis, osteoarthritis, HLD, HTN, metastatic melanoma currently on chemotherapy follows with Dr. Smalls who presents to the ED with?severe headache x3 days. 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 Headache 2/2 acute Meningitis , viral vs bacterial CT of head negative for acute abnormality CSF suggestive of possible aseptic meningitis with elevated WBCs CSF viral panel negative cultures pending On IV antibiotics Vancomycin, Ceftriaxone and Acyclovir started 05/27 pending final cultures (Ampicillin stopped) ID , likely aseptic Neurology iinput appreciate Fioricet prn Acute hyponatremia Sodium improved to 131 Likely secondary to SIADH in the setting of chemotherapy and menigitis 1200 mL fluid restriction Oncology consult, follows with Dr. Slim JORDAN salt tab Follow sodium closely HLD Continue statin HTN Continue enalapril Hold hydrochlorothiazide due to hyponatremia Full Code DVT Prophylaxis: Lovenox Pt will require a hospitalization overnight for treatment of?acute hyponatremia likely secondary to iatrogenic SIADH in the setting of chemotherapy and IV antibiotics for meningitis pending final cultures Quality Stroke Does the patient have a stroke diagnosis?: No VTE Prior VTE?: No VTE Risk Level:: Medical - moderate - high VTE Device Contraindication: Treatment Not Indicated VTE Drug Contraindication: N/A - Med Ordered
[2024-05-29] MEDS: Enoxaparin Sodium 40 MG/0.4 ML SYRINGE SUBCUT (15:27)
[2024-05-29 15:54] VITALS: BP 139/78; PULSE 66; RESP 16; TEMP 36.1; O2SAT 96
[2024-05-29 17:13] LABS: Vancomycin Random 10.7 mcg/mL (15-20)
[2024-05-29 17:15] LABS: Anion Gap 12 (12-20); Blood Urea Nitrogen 20 mg/dL (9-16); Calcium 8.8 mg/dL (8.4-10.2); Carbon Dioxide 29 mmol/L (22-29); Chloride 97 mmol/L (96-108); Creatinine Clr Calc Pharmacy 86.3; Estimated Glomerular Filt Rate > 60; Glucose Random 131 mg/dL (60-115); Potassium 4.6 mmol/L (3.3-5.1); Sodium 133 mmol/L (135-145)
[2024-05-29] MEDS: cefTRIAXone sodium 2 GM VIAL IVPUSH (17:47)
--- NOTE | 2024-05-29 17:59 | HE.PHANOTE ---
VANCO DOSE ADJUSTMENT BASED ON SCR AND TROUGH OF 10.7 DOSE INCREASED TO 1GRAM Q 8 H. NEXT LEVEL 05/30 @ 1600
[2024-05-29 19:53] VITALS: BP 141/76; PULSE 83; RESP 15; TEMP 35.7; O2SAT 96
[2024-05-29] MEDS: Atorvastatin Calcium 10 MG TABLET PO (21:07)
[2024-05-30] MEDS: 0.9 % Sodium Chloride Flush 3 ML SYRINGE IVFLUSH ×2 (00:40→09:48)
[2024-05-30] MEDS: vancomycin HCL 1,000 MG in 0.9 % Sodium Chloride 250 ML 270 MG IV (02:52)
[2024-05-30 03:47] VITALS: BP 128/65; PULSE 67; RESP 16; TEMP 36.4; O2SAT 92
[2024-05-30] MEDS: methylPREDNISolone Sod Succ 40 MG/ML VIAL 30 MG IVPUSH (06:07)
[2024-05-30] MEDS: ACYCLOVIR SODIUM IV (06:08)
[2024-05-30] MEDS: SODIUM CHLORIDE 0.9% IV (06:08)
[2024-05-30 06:47] LABS: Anion Gap 11 (12-20); Blood Urea Nitrogen 20 mg/dL (9-16); Calcium 8.8 mg/dL (8.4-10.2); Carbon Dioxide 27 mmol/L (22-29); Chloride 99 mmol/L (96-108); Creatinine Clr Calc Pharmacy 102.6; Estimated Glomerular Filt Rate > 60; Glucose Random 122 mg/dL (60-115); Potassium 4.3 mmol/L (3.3-5.1); Sodium 133 mmol/L (135-145)
[2024-05-30 07:56] VITALS: BP 126/72; PULSE 69; RESP 16; TEMP 36.4; O2SAT 96
--- NOTE | 2024-05-30 08:50 | P.PNNP_ITS ---
Subjective Subjective Date of Service: 05/30/24 Interval history: Pt is a 68 y/o male with a medical history of metastitic melanoma (currently on chemotherapy, follows Dr Smalls), prostate cancer s/p radical prostatectomy, nephrolithiasis, osteoarthritis, HLD, HTN. Presented 05/27 to ED with severe headache x3 days, CFS fluid suggestive of meningitis, found to have sodium of 126. Nephrology consulted for hyponatremia. Sodium within normal limits at baseline. 05/27/23 sodium 126, 05/28 was 124, 123, 126 05/29 was 131 05/30 is 133 patient remains on a fluid restriction. 05/27 urine osmolality 330, urine sodium 89 ; urine specific gravity 1.030 renal function is normal/at baseline- creatinine 0.97, GFR >[address] Smalls, oncology for management of melanoma. Presumed metastatic melanoma diagnosed Feb 2024 (lymphadenopathy initial presentation), brain MRI showed no evidence of metastatic disease. Started on ipilimumab and nivolumab followed by nivolymab maintenance in March 2024. Also on prednisone. reports currently headache and nausea have resolved denies chest pain, abdominal pain, flank pain, shortness of breath denies difficulty urinating, denies urinary frequency, urgency, incontinence, pain. denies other new symptoms/concerns. Physical Exam 2 Vital Signs: Vital Signs: Last Vital Signs Temp 97.6 F 05/30/24 07:56 Pulse 69 05/30/24 07:56 Resp 16 05/30/24 07:56 BP 126/72 05/30/24 07:56 Pulse Ox 96 05/30/24 07:56 O2 Del Method Room Air 05/30/24 07:56 BMI result Body Mass Index 29.5 Const: General: no acute distress, alert and awake Resp: Effort & Inspection: normal respiratory effort and able to speak in complete sentences Auscultation: clear to auscultation bilaterally Cardio: Jugular venous distension: no JVD Rate: regular rate Rhythm: r egular rhythm Heart sounds: S1 normal heart sound present and S2 normal heart sound present GI: Palpation (GI): Soft to palpation and nontender : General: Yes no CVA tenderness Back/Spine/Pelvis: Back: no CVA tenderness Skin: Rashes: no rashes Extrem: General: No edema Objective Data Labs 05/29/24 05:52 05/30/24 06:20 Labs: Laboratory Results - last 24 hr 05/29/24 05/29/24 05/30/24 10:17 16:04 06:20 Sodium 132 L 133 L 133 L Potassium 4.9 4.6 4.3 Chloride 95 L 97 99 Carbon Dioxide 31 H 29 27 Anion Gap 11 L 12 11 L BUN 23 H 20 H 20 H Creatinine 0.87 1.01 0.85 Estim Creat Clear Calc 100.2 86.3 102.6 Estimated GFR > 60 > 60 > 60 Random Glucose 165 H 131 H 122 H Calcium 9.3 8.8 8.8 Random Cortisol 1.5 Random Vancomycin 10.7 L Microbiology Microbiology Results: Microbiology 05/27/24 17:38 Cerebrospinal Fluid Gram Stain - Final 05/27/24 17:38 Cerebrospinal Fluid CSF Examination - Final 05/27/24 17:38 Cerebrospinal Fluid Fluid Description - Final 05/27/24 17:38 Cerebrospinal Fluid CSF Culture - Preliminary No growth after 2 days 05/27/24 16:49 Blood - Venous Blood Culture - Preliminary No growth after 48 hours. 05/27/24 16:49 Blood - Venous Blood Culture - Preliminary No growth after 48 hours. Procedures Date of Service Date of Service: 05/30/24 Assessment & Plan Assessment and plan (1) Acute hyponatremia: Status: Acute (2) Meningitis: Status: Acute Plan Hyponatremia secondary to adrenal insufficiency given low cortisol level Improving. Likely multifactorial; secondary to SIADH as patient appears euvolemic- multifactorial from [place], hctz, nivolumab adrenal insufficiency- continue methylprednisone as ordered free water restriction, 1.5L/[address] Petersen Time Spent With Patient Time: Total time managing care of this patient today ____ minutes. Progress Note: Quality Stroke Does the patient have a stroke diagnosis?: No
[2024-05-30] MEDS: Ascorbic Acid 500 MG TABLET 1000 MG PO (09:48)
[2024-05-30] MEDS: Multivitamin TABLET 1 TAB PO (09:48)
--- NOTE | 2024-05-30 11:27 | PM.DS ---
DS: Providers Provider Date of Service: 05/30/24 Date of admission: 05/27/24 15:20 Date of discharge: 05/30/24 Primary care physician: Raghu Contreras MD Consults: 05/27/24 15:25 Consult to Hematology / Oncology Routine Consulting Provider: [facility] Oncology/Hematology Reason for consultation: YBARRA, hyponatremia. Follows with Dr. Smalls 05/27/24 18:27 Consult to Infectious Diseases Routine Consulting Provider: [facility] Reason for consultation: ?Meningitis Consult to Neurology Routine Consulting Provider: [facility] Reason for consultation: ?Meningitis 05/28/24 17:32 Consult to Nephrology Routine Consulting Provider: [facility] Reason for consultation: Hyponatremia DS: Diagnosis Discharge Diagnosis (1) Acute hyponatremia: Status: Acute (2) Meningitis: Status: Acute DS: Summary Hospital Course Hospital Course: from initial hpi: 68-year-old male with a PMH significant for?prostate cancer s/p radical prostatectomy, nephrolithiasis, osteoarthritis, HLD, HTN, metastatic melanoma currently on chemotherapy follows with Dr. Smalls who presents to the ED with?severe headache x3 days. Pt reports has been experiencing the ?headache from hell? since after straining during a bowel movement. Not alleviated by Excedrin. Called Dr. Smalls's office who told him to come to the ED if he experienced nausea. This morning headache continued and patient felt nauseous, lightheaded, and dizzy so came in for further evaluation. Pt also complains of right lower extremity edema that has been ongoing for the past couple of months. Had US doppler on 04/21/2024 that was negative for DVT. No chest pain/pressure, palpitations. Denies fever, chills, abdominal pain. No shortness a breath or difficulty breathing. ED clinician contacted Dr. Smalls who suggested admission for sodium correction, close monitoring labs, and checking TSH and cortisol levels. In the ED pt was hypertensive up to 152/83, vitals otherwise WNL and stable. Labs were significant for sodium 126, chloride 86, serum osmolality mildly low at 273, AST 76, and ALT 108. No leukocytosis. Stable H&H of 13.0/37.4. UA negative for UTI but with mildly low urine osmolality of 330. Tested negative for flu, RSV, COVID. CT?of head negative for acute intracranial abnormality. Pt was treated with ondansetron, morphine, and Benadryl. 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 hospital course: Patient was admitted for acute meningitis. CSF showed predominantly lymphocytes, normal glucose, mildly elevated protein, negative meningeal encephalitis panel, negative Gram stain all consistent with aseptic meningitis. Antibiotics and antivirals were discontinued. Most likely this is due to patient's immunotherapy with nivolumab which is known to cause aseptic meningitis. Symptoms resolved and patient will be discharged home. Course complicated by mild acute hyponatremia likely related to SIADH sodium is 133 at time of discharge. For hyperlipidemia was continue statin. For hypertension was continued on enalapril. fo rsecondary adrenal insufficiency will continue prednisone 40mg until seen by hematology. Time Attestation Discharge Coordination Time (in mins): 36 Quality: Safe Use of Opioids Does Pt have an Active Cancer Diagnosis on the Problem List?: Yes Opioid Measure Date for [facility] Report: 04/30/24 [address] Time for [facility] Report: 13:38 Quality: Stroke Does the patient have a stroke diagnosis?: No Physical Exam Vital Signs: Vital Signs: Last Vital Signs Temp 97.6 F 05/30/24 07:56 Pulse 69 05/30/24 07:56 Resp 16 05/30/24 07:56 BP 126/72 05/30/24 07:56 Pulse Ox 96 05/30/24 07:56 O2 Del Method Room Air 05/30/24 07:56 BMI result Body Mass Index 29.5 Const: General: no acute distress, alert and awake Resp: Effort & Inspection: normal respiratory effort and able to speak in complete sentences Auscultation: clear to auscultation bilaterally Cardio: Jugular venous distension: no JVD Rate: regular rate Rhythm: regular rhythm Heart sounds: S1 normal heart sound present and S2 normal heart sound present GI: Palpation (GI): Soft to palpation and nontender : General: Yes no CVA tenderness Back/Spine/Pelvis: Back: no CVA tenderness Skin: Rashes: no rashes Extrem: General: No edema DS: Data Data Completed and Pending Labs on day of discharge: Laboratory Results - last 24 hr 05/29/24 05/29/24 05/30/24 10:17 16:04 06:20 Sodium 133 L 133 L Potassium 4.6 4.3 Chloride 97 99 Carbon Dioxide 29 27 Anion Gap 12 11 L BUN 20 H 20 H Creatinine 1.01 0.85 Estim Creat Clear Calc 86.3 102.6 Estimated GFR > 60 > 60 Random Glucose 131 H 122 H Calcium 8.8 8.8 Random Cortisol 1.5 Random Vancomycin 10.7 L Preliminary micro results at discharge 05/27/24 17:38 CSF Culture - Preliminary Cerebrospinal Fluid No growth after 2 days 05/27/24 16:49 Blood Culture - Preliminary Blood - Venous No growth after 48 hours. 05/27/24 16:49 Blood Culture - Preliminary Blood - Venous No growth after 48 hours. Discharge Plan Discharge Anticipated Discharge Date/Time: 05/30/24 11:25 Patient Disposition: Home, Self-Care Discharge Diagnosis: nivolumab related aseptic meningitis Referrals: Po,Raghu Anderson MD [Primary Care Provider] - 1 Week Discharge Medications: New prednisone 20 mg tablet 40 mg PO DAILY Qty: 20 0RF Continued enalapril maleate 10 mg tablet 10 mg PO DAILY Qty: 90 2RF hydrochlorothiazide 12.5 mg capsule 12.5 mg PO DAILY acetaminophen [Acetaminophen Extra Strength] 500 mg Tablet 1,000 mg PO Q6H PRN (Reason: Headache) ondansetron 8 mg Tablet,Disintegrating 8 mg PO Q8H PRN (Reason: Nausea) Qty: 30 3RF sildenafil 100 mg Tablet 100 mg PO DAILY PRN (Reason: Erectile Dysfunction) Rx Instructions: administer 30 minutes to 4 hours before activity diphenhydramine HCl [Benadryl Allergy] 25 mg Tablet 25 mg PO BID PRN (Reason: Rash) atorvastatin 10 mg tablet 10 mg PO BEDTIME omega-3 fatty acids 1,000 mg capsule 1,000 mg PO DAILY ascorbic acid (vitamin C) 1,000 mg tablet 1 g PO DAILY Centrum 18-400 mg-mcg tablet 1 tab PO DAILY psyllium husk [Metamucil] 0.4 gram capsule 0.4 g PO BEDTIME Discharge Orders: Discharge Order (Routine); Ordered 05/30/24 Ordered By: Jermaine Jarvis Diet: Advance to usual diet Activity on Discharge: As tolerated Stand Alone Forms: Patient Portal Discharge page Print Language: Trinidadian Care Plan Goals: Recovery Health Concerns: Aseptic meningitis Plan of Treatment: Follow up with Oncology Assessment: See above Discharge Date/Time: 05/30/24 13:31
--- NOTE | 2024-05-30 11:33 | MHC.CM.PN ---
Per MD patient medically cleared for dc home self care. Patient will call his brother for transportation. RN aware.
--- NOTE | 2024-05-30 14:18 | P.CNID_ITS ---
History of Present Illness Data of Consult Service Date: 05/29/24 Requesting physician: Tarah West Primary Care Provider: Raghu Contreras MD HPI Reason for consult: headache He presents with 7/10 frontal headache for a day. He had some chills but no fever. LP done shows t protein 54 and WBC of 16 in CSF. Meningitis/encephalitis screen negative. He has prostate cancer with rad/prostatectomy. and metastatic melanoma. Review of Systems 2 Review of Systems: Yes all other systems are reviewed and are negative PMFSH Past Medical History Medical History PSA elevation Overweight (BMI 25.0-29.9) Finger fracture, right Nephrolithiasis Osteoarthritis Hypercholesterolemia Hypertension Family History Family History Mother Bladder cancer Father Prostate cancer Family history: reviewed and not pertinent Surgical History Surgical History History of tonsillectomy Social History Social History Household Members: None Housing: House Do you presently have visiting nurse or other home services: No Alcohol intake: former Patient Tobacco Use Status: Never used Tobacco e-Cigarette/Vaping Use: Never Used Second Hand Smoke Exposure: No Advance Directives Date on File: 09/22/22 service: Yes Current occupational status: employed Sexual orientation: Straight/Heterosexual Gender identity: Male Cognitive needs: No Hearing needs: No Vision needs: Yes Meds Allergies Allergy/AdvReac Type Severity Reaction Status Date / Time No Known Allergies Allergy Verified 05/27/24 08:24 Home Medications ?Medication ?Instructions ?Recorded ?Confirmed ?Last Taken ?Type ascorbic acid (vitamin C) 1,000 mg 1 g PO DAILY 05/21/20 05/27/24 05/27/24 09:00 History tablet multivitamin-ferrous 1 tab PO DAILY 05/21/20 05/27/24 05/27/24 09:00 History fumarate-folic acid 18 mg-400 mcg tablet (Centrum) omega-3 fatty acids 1,000 mg 1,000 mg PO DAILY 05/21/20 05/27/24 05/27/24 09:00 History capsule psyllium husk 0.4 gram capsule 0.4 g PO BEDTIME 05/25/22 05/27/24 Unknown History (Metamucil) hydrochlorothiazide 12.5 mg capsule 12.5 mg PO DAILY 03/20/24 05/27/24 05/27/24 09:00 History acetaminophen 500 mg tablet 1,000 mg PO Q6H PRN Headache 05/26/24 05/27/24 Unknown History (Acetaminophen Extra Strength) atorvastatin 10 mg tablet 10 mg PO BEDTIME 05/27/24 05/27/24 Unknown History diphenhydramine HCl 25 mg tablet 25 mg PO BID PRN Rash 05/27/24 05/27/24 Unknown History (Benadryl Allergy) sildenafil 100 mg tablet 100 mg PO DAILY PRN Erectile 05/27/24 05/27/24 Unknown History Dysfunction Physical Exam 2 Vital Signs: Vital Signs: Last Vital Signs Temp 97.6 F 05/30/24 07:56 Pulse 69 05/30/24 07:56 Resp 16 05/30/24 07:56 BP 126/72 05/30/24 07:56 Pulse Ox 96 05/30/24 07:56 O2 Del Method Room Air 05/30/24 07:56 BMI result Body Mass Index 29.5 Const: General: cooperative HEENT: Head: Yes normal to inspection Face and sinus: Yes normal facial exam Mouth: Normal oral and palatal mucosa present Teeth and gingiva: d entition normal Eyes: General: appearance normal, both eyes and all related structures P upils: Equal, round and reactive pupils present Resp: Effort & Inspection: normal respiratory effort Cardio: Rate: regular rate Rhythm: regular rhythm GI: Palpation (GI): Soft to palpation and nontender : General: Yes no CVA tenderness Back/Spine/Pelvis: Back: no CVA tenderness Skin: General skin exam: no rashes or lesions noted Neuro: General: moves all extremities Cranial nerves: Yes Equal, round and reactive pupils present Extrem: General: Yes normal to inspection Psych: Appearance: grossly normal Results Labs 05/29/24 05:52 05/30/24 06:20 Labs: BMP 05/29/24 05/30/24 16:04 06:20 Sodium 133 L 133 L Potassium 4.6 4.3 Chloride 97 99 Carbon Dioxide 29 27 BUN 20 H 20 H Creatinine 1.01 0.85 Calcium 8.8 8.8 Microbiology Microbiology Results: Microbiology 05/27/24 17:38 Cerebrospinal Fluid Gram Stain - Final 05/27/24 17:38 Cerebrospinal Fluid CSF Examination - Final 05/27/24 17:38 Cerebrospinal Fluid Fluid Description - Final 05/27/24 17:38 Cerebrospinal Fluid CSF Culture - Preliminary No growth after 2 days 05/27/24 16:49 Blood - Venous Blood Culture - Preliminary No growth after 48 hours. 05/27/24 16:49 Blood - Venous Blood Culture - Preliminary No growth after 48 hours. Assessment and Plan (1) Meningitis: Status: Acute Plan Aseptic meningitis This is likely viral as PCR screen negative and he has no new medications or HIV risk factors. Would not give any antibiotics. Followup PCP as dont see any malignancy in CSF sample.
== END 2024-05-30 13:31 | disposition home or self-care (01) | DRG 98 ==
LOC: HO.ED 12:49 → HO.EDOVER 15:51 → HO.S3 05-28 07:44
PROVIDERS: Emergency Medicine; Nurse Practitioner Family; Physician Assistant; Student in an Organized Health Care Education/Training Program; Admitting Provider Student in an Organized Health Care Education/Training Program; Emergency Provider Emergency Medicine; PCP Internal Medicine; Visit Provider Internal Medicine
DX: G03.0 Nonpyogenic meningitis (principal); C77.8 Secondary and unspecified malignant neoplasm of lymph nodes of multiple regions; E22.2 Syndrome of inappropriate secretion of antidiuretic hormone; C78.01 Secondary malignant neoplasm of right lung; C78.89 Secondary malignant neoplasm of other digestive organs; C79.51 Secondary malignant neoplasm of bone; C79.2 Secondary malignant neoplasm of skin; E27.40 Unspecified adrenocortical insufficiency; C61 Malignant neoplasm of prostate; T45.1X5A Adverse effect of antineoplastic and immunosuppressive drugs, initial encounter; I10 Essential (primary) hypertension; E78.5 Hyperlipidemia, unspecified; Z20.822 Contact with and (suspected) exposure to COVID-19; Z90.79 Acquired absence of other genital organ(s); Z79.899 Other long term (current) drug therapy
CPT/HCPCS: 0241U; 36415; 70460; 71045; 80048; 80076; 80202; 81003; 82436; 82533; 82945; 83605; 83690; 83735; 83930; 83935; 84133; 84157; 84300; 84443; 85025; 85027; 85610; 87015; 87040; 87070; 87205; 87483; 87633; 89051; 99285; J0133; J0290; J0696; J1650; J2003; J2270; J2405; J2919; J3370; J3371; Q9967

== ENCOUNTER → 2024-05-27 15:20 | Outpatient (BNV) | payer MEDICARE, OTHER, SELFPAY | PROVIDERS: Admitting Provider Student in an Organized Health Care Education/Training Program; Emergency Provider Emergency Medicine; PCP Internal Medicine; Visit Provider Psychiatry & Neurology Neurology | DX: G03.9 Meningitis, unspecified (principal) | CPT/HCPCS: 99222 ==

== ENCOUNTER → 2024-05-27 15:20 | Outpatient (BNV) | payer MEDICARE, OTHER, SELFPAY | PROVIDERS: Admitting Provider Student in an Organized Health Care Education/Training Program; Emergency Provider Emergency Medicine; PCP Internal Medicine; Visit Provider Internal Medicine | DX: C43.9 Malignant melanoma of skin, unspecified (principal) | CPT/HCPCS: 99222 ==

== ENCOUNTER → 2024-05-27 15:20 | Outpatient (BNV) | payer MEDICARE, OTHER, SELFPAY | PROVIDERS: Admitting Provider Student in an Organized Health Care Education/Training Program; Emergency Provider Emergency Medicine; PCP Internal Medicine; Visit Provider Student in an Organized Health Care Education/Training Program | DX: E87.1 Hypo-osmolality and hyponatremia (principal); G03.9 Meningitis, unspecified | CPT/HCPCS: 99223; 99232; 99239; 99499 ==

== ENCOUNTER → 2024-05-27 15:20 | Outpatient (BNV) | payer MEDICARE, OTHER, SELFPAY | PROVIDERS: Admitting Provider Student in an Organized Health Care Education/Training Program; Emergency Provider Emergency Medicine; PCP Internal Medicine; Visit Provider Nurse Practitioner Family | DX: E87.1 Hypo-osmolality and hyponatremia (principal); G03.9 Meningitis, unspecified | CPT/HCPCS: 99222; 99232 ==

== ENCOUNTER → 2024-05-27 15:20 | Outpatient (BNV) | payer MEDICARE, OTHER, SELFPAY | PROVIDERS: Admitting Provider Student in an Organized Health Care Education/Training Program; Emergency Provider Emergency Medicine; PCP Internal Medicine; Visit Provider Internal Medicine | DX: G03.9 Meningitis, unspecified (principal) | CPT/HCPCS: 99222 ==

== ENCOUNTER 2024-06-02 08:37 | Outpatient (AMB) | payer MEDICARE, OTHER, SELFPAY ==
--- OUTSIDE RECORDS SUMMARY | 2024-06-02 08:40 | XMS_ITS ---
Author Organization [facility] Address [address] [place] [address] Care Team Providers Care Body Shop Technician Name Role Phone Raghu Contreras MD Primary Care Provider Estrella Ewing [facility] [phone] Encounters Encounter Location Date Provider Diagnosis [facility] [address] [place] [address] 04/21/2024 Estrella Mosqueda PLAN OF TREATMENT No Information
--- OUTSIDE RECORDS SUMMARY | 2024-06-02 08:41 | XMS_ITS | Patient Health Record ---
Author Organization [facility] Address [address] [place] [address] Care Team Providers Care Orthotic Assistant Name Role Phone Raghu Contreras MD Primary Care Provider Estrella Ewing Unavailable [phone] ALLERGIES No Known Allergies REASON FOR REFERRAL [...] screening (Z12.11) Active confirmed Colon cancer screening (188117716) Problem Encounter for screening for malignant neoplasm of colon (Z12.11) Active confirmed [id number] Problem History of adenomatous polyp of colon (Z86.010) Active confirmed History of adenomatous polyp of colon (469532211) Problem Encounter for other preprocedural examination (Z01.818) Active confirmed Pre-procedure evaluation check (271290374) Problem Encounter for long-term (current) use of high-risk medication (Z79.899) Active confirmed Long-term curre nt use of drug therapy (190860477) Problem Pre-procedural examination (Z01.818) Active confirmed [id number] VITAL SIGNS Blood pressure diastolic 00 mm Hg 03/02/2024 Height 69 in 03/02/2024 Blood pressure systolic 00 mm Hg 03/02/2024 Weight 206 lbs 03/02/2024 BMI 30.42 kg/m2 03/02/2024 Encounters Encounter Location Date Provider Diagnosis [facility] [address] [place] [address] 03/02/2024 Estrella Mosqueda History of adenomato us polyp of colon Z86.010 ; Encounter for long-term (current) use of high-risk medication Z79.899 ; Colon cancer screening Z12.11 and Encounter for other preprocedural examination Z01.818 [facility] [address] [place] [id number] 04/21/2024 Estrella Mosqueda ASSESSMENTS Encounter Date Diagnosis [...] OF [place] [address] [place]RI[place] [address] [id number] ИВАН SHELBY Self - patient is the insured [employer] [address] [place] [address] [id number] ИВАН SHELBY Self - patient is the insured MEDICAL (GENERAL) HISTORY Medical History History ICD Code Hypertension Hyperlipidemia Denies [place],DM,CVA,Lung disease,renal dise ase Chronic right-sided abdomina l [...]
--- OUTSIDE RECORDS SUMMARY | 2024-06-02 08:41 | XMS_ITS ---
Author Organization [facility] Address [address] [place] [address] Care Team Providers Care Tube Skiver Name Role Phone Raghu Contreras MD Primary Care Provider Estrella Ewing Unavailable [phone] ALLERGIES No Known Allergies REASON FOR VISIT [...] confirmed History of adenomatous polyp of colon (450761655) Problem Colon cancer screening (Z12.11) Active confirmed Colon cancer screening (028396963) Problem Encounter for other preprocedural examination (Z01.818) Active confirmed Pre-procedure evaluation check (667637571) Problem Encounter for long-term (current) use of high-risk medication (Z79.899) Active confirmed Long-term current use of drug therapy (412197710) VITAL SIGNS BMI 30.42 kg/m2 03/02/2024 Blood pressure systolic 00 mm Hg 03/02/20 24 Blood pressure diastolic 00 mm Hg 024 Height 69 in 03/02/2024 Weight 206 lbs 03/02/2024 Encounters Encounter Location Date Provider Diagnosis [facility] [address] [place] [address] 03/02/2024 Estrella Mosqueda History of adenomato us [...]
--- OUTSIDE RECORDS SUMMARY | 2024-06-02 08:41 | XMS_ITS | Continuity of Care Document ---
Author Name [facility] Organization [facility] Care Team Providers Care Hand Lens Polisher Name Role Phone [facility] Unavailable Unavailable Medications Combined list of outpatient [...] TABLET, ORAL, MYLAN, 500 ea. BOTTLE Active [id number] 4 2023 90 Pharmac y Data Transac tion Service Facilit y ATORVASTATI N CALCIUM (ATORVASTAT IN CALCIUM), 10 MG, TABLET, ORAL, MYLAN, 500 ea. BOTTLE Active [id number] 4 2023 90 Pharmac y Data Transac tion Service Facilit y ENALAPRIL MALEATE (enalapril maleate), 10 MG, TABLET, ORAL, [facility], 1000 ea. BOTTLE Cancele d [id number] : 2023 0 Pharmac y Data Transac tion Service Facilit y ENALAPRIL MALEATE (enalapril maleate), 10 MG, TABLET, ORAL, [facility], 1000 ea. BOTTLE Active [id number] 4 2023 90 Pharmac y Data Transac tion Service Facilit y ENALAPRIL MALEATE (enalapril maleate), 10 MG, TABLET, ORAL, [facility] [facility], 1000 ea. BOTTLE Active [id number] 4 2023 90 Pharmac y Data Transac tion Service Facilit y ENALAPRIL MALEATE (ENALAPRIL MALEATE), 10MG, TABLET, ORAL, [employer] [facility] [employer], 1000 ea. BOTTLE Cancele d [id number] : 2023 0 Pharmac y Data Transac tion Service Facilit y ENALAPRIL MALEATE (ENALAPRIL MALEATE), 10MG, TABLET, ORAL, [employer] [facility] [place], 1000 ea. BOTTLE Cancele d [id number] : 2023 0 Pharmac y Data Transac tion Service Facilit y HYDROCHLORO THIAZIDE (HYDROCHLOR OTHIAZIDE), 12.5 MG, CAPSULE, ORAL, [facility], 1000 ea. BOTTLE Active [id number] 4 2023 90 Pharmac y Data Transac tion Service Facilit y HYDROCHLORO THIAZIDE (HYDROCHLOR OTHIAZIDE), 12.5 MG, CAPSULE, ORAL, [facility], 1000 ea. BOTTLE Active [id number] 4 2023 90 Pharmac y Data Transac tion Service Facilit y SILDENAFIL CITRATE (sildenafil citrate), 100 MG, TABLET, ORAL, [facility]AL [employer]ARMACE, 30 ea. BOTTLE Cancele d [id number] : 2023 0 Pharmac y Data Transac tion Service Facilit y Immunizations Combined list of available immunizations from the Department of Defense and Veterans Affairs facilities. Immunization Series Date Given Administered By Site Reaction Lot Number CVX Code Drug Lease Examiner Status Comments Source COVID-19, mRNA, LNP-S, PF, [...] , seasonal, injectabl e, preservat jo-ann free [facility] tetanus and diphtheria toxoids, adsorbed, preservative free, for adult use (2 Lf of tetanus toxoid and 2 Lf of diphtheria toxoid) 1 2001 Unknown, Provider [id number] Sanofi Pasteur ([facility]) complet ed tetanus and diphtheri a toxoids, adsorbed, preservat jo-ann free, for adult use (2 Lf of tetanus toxoid and 2 Lf of diphtheri a toxoid) [facility] typhoid vaccine, parenteral, other than acetone-kille d, dried 1 2001 Unknown, Provider [id number] Sanofi Pasteur ([facility]) complet ed typhoid vaccine, parentera l, other than acetone-k illed, dried [facility] influenza virus vaccine, whole virus 1 2001 Unknown, Provider [id number] Sanofi Pasteur ([facility]) complet ed influenza virus vaccine, whole virus [facility] yellow fever vaccine 1 2001 Unknown, Provider [id number] Sanofi Pasteur ([facility]) complet ed yellow fever vaccine DoD meningococcal polysaccharid e vaccine (MPSV4) 1 2001 Unknown, Provider [id number] Sanofi Pasteur ([facility]) complet ed meningoco ccal polysacch aride vaccine (MPSV4) [facility] influenza virus vaccine, whole virus 1 2000 Unknown, Provider [id number] Leah ([place]) complet ed influenza virus vaccine, whole virus [facility] tuberculin skin test; purified protein derivative solution, intradermal 1 2000 Unknown, Provider [id number] Rhonda (CON) complet ed tuberculi n skin test; purified protein derivativ e solution, intraderm al [facility] influenza virus vaccine, whole virus 1 1999 Unknown, Provider [id number] 16 Wyeth-Ayerst ([place]) complet ed influenza virus vaccine, whole virus DoD typhoid vaccine, parenteral, other than acetone-kille d, dried 1 1999 Unknown, Provider [id number] Merieux (IM) complet ed typhoid vaccine, parentera l, other than acetone-k illed, dried DoD tuberculin skin test; purified protein derivative solution, intradermal 1 1998 Unknown, Provider [id number] Rhonda (CON) complet ed tuberculi n skin test; purified protein derivativ e solution, intraderm al DoD influenza virus vaccine, whole virus 1 1998 Unknown, Provider [id number] 16 Wyjose-Ayjayant (Inactive) ([place]) complet ed influenza virus vaccine, whole virus DoD influenza virus vaccine, whole virus 2 1997 Unknown, Provider [id number] Rhonda (CON) complet ed influenza virus [...] ed measles, mumps and rubella virus vaccine [facility] typhoid vaccine, parenteral, acetone-kille d, dried ([place] ) 2 1995 Unknown, Provider [id number] Merck (MSD) complet ed typhoid vaccine, parentera l, acetone-k illed, dried ([place] ) [facility] Hungarian Encephalitis Vaccine SC 3 1994 Unknown, Provider 39 () complet ed [place] Encephali tis Vaccine [facility] tetanus and diphtheria toxoids, adsorbed, preservative free, for adult use (2 Lf of tetanus toxoid and 2 Lf of diphtheria toxoid) 1 1992 Unknown, Provider 09 () complet tetanus and diphtheri a toxoids, adsorbed, preservat jo-ann free, for adult use (2 Lf of tetanus toxoid and 2 Lf of diphtheri a toxoid) [facility] trivalent poliovirus vaccine, live, oral 1 1983 [...]
[2024-06-02 08:52] VITALS: BP 142/90; PULSE 68; O2SAT 99; BMI 30.6
--- NOTE | 2024-06-02 08:52 | A.OFFPC_ITS ---
Vital Signs 06/02/24 08:52 Height 5 ft 10 in Weight 213 lb 8 oz BMI 30.6 BP 142/90 H Blood Pressure Location Lt brachial Position Sitting Pulse 68 Pulse Source Pulse Oximeter Pulse Oximetry (%) 99 Oxygen Delivery Method Room Air Intake Visit Reasons: [facility] 05/30 HYPONATREMIA/PHYSICAL Allergies No Known Allergies Allergy (Verified 06/02/24 08:55) Tobacco use date assessed: 06/02/24 Fall risk assessment: No Falls in past year Last assessed Fall Risk: 06/02/24 Dental Screening Dental Screen Date: 06/02/24 Did you have a dental visit in the last 12 months?: Yes Did you have a dental problem in the last 6 months where you did not have access to dental care?: No Was dental information given to patient?: Patient has dentist HPI [facility] 05/30 HYPONATREMIA/PHYSICAL HPI Details The patient is a 68-year-old male presenting with malignant melanoma and associated management issues. The melanoma diagnosis has advanced to involve lymph nodes, with prior scans identifying metastatic disease. The patient reports no initial skin rashes; such symptoms developed following chemotherapy initiation, likely a side effect of the medications. Recently, a cessation in treatment was advised, and a PET scan is planned post-holiday season to assess treatment effectiveness. Concurrently, the patient experiences hypertension, which fluctuates, recording as high as 156 mmHg during hospital stays and around 140 mmHg during outpatient measurements. Blood pressure variability may be linked to a previous meningitis diagnosis. After beginning chemotherapy, an episode of limb swelling raised concerns about deep vein thrombosis; however, an ultrasound ruled out clots, revealing lymphatic obstruction. The patient's past medical history also includes dyslipidemia, currently managed with atorvastatin. The medications were reviewed, and a yearly supply was prescr ibed. The patient is compliant with vaccinations, having received flu and COVID- 19 shots. Gastroenterological procedures, such as a colonoscopy, have been postponed due to the current melanoma management. [facility] Medical History PSA elevation Overweight (BMI 25.0-29.9) Finger fracture, right Nephrolithiasis Osteoarthritis Hypercholesterolemia Hypertension Surgical History History of tonsillectomy Family History Mother Bladder cancer Father Prostate cancer Social History Household Members: None Housing: House Do you presently have visiting nurse or other home services: No Alcohol intake: former Patient Tobacco Use Status: Never used Tobacco e-Cigarette/Vaping Use: Never Used Second Hand Smoke Exposure: No Advance Directives Date on File: 09/22/22 service: Yes Current occupational status: employed Sexual orientation: Straight/Heterosexual Gender identity: Male Cognitive needs: No Hearing needs: No Vision needs: Yes Questionnaire PHQ-9 Over the last 2 weeks, how often have you been bothered by any of the following problems? 1. Little interest or pleasure in doing things: not at all 2. Feeling down, depressed, or hopeless: not at all 3. Trouble falling or staying asleep, or sleeping too much: not at all 4. Feeling tired or having little energy: not at all 5. Poor appetite or overeating: not at all 6. Feeling bad about yourself - or that you are a failure or have let yourself or your family down: not at all 7. Trouble concentrating on things, such as reading the newspaper or watching television: not at all 8. Moving or speaking so slowly that other people could have noticed. Or the opposite - being so fidgety or restless that you have been moving around a lot more than usual: not at all 9. Thoughts that you would be better off or of hurting yourself in some way: not at all Total score: 0 Depression Screening Interpretation: Negative Depression Screening Done: Yes 84282 - PHQ-9 Billing: Yes Source: Developed by Drs. Quirino Coats, Radha Reed, Bruno Reeves and colleagues, with an educational marleen from [employer]. Thrive Questionnaire Date Thrive assessed: 05/28/24 I am a: Patient What is your living situation today?: I have a steady place to live Within the past 12 months, did the food you bought not last and you didn't have the money to get more?: Never true Within the past 12 months, did you worry whether your food would run out before you got money to buy more?: Never true Do you have trouble paying for medicines?: No Do you have trouble getting transportation to medical appointments?: No Do you have trouble paying your heating and electricity bill?: No Do you have trouble taking care of your child, family member or friend?: No Do you have trouble with day-to-day activities such as bathing, preparing meals, shopping, managing finances, etc.?: No Are you currently unemployed and looking for a job?: No Are you interested in more education?: No THRIVE Score: 0 AUDIT C Alcohol Use Questionnaire (AUDIT-C) 1. How often do you have a drink containing alcohol?: Never 3. How often do you have six or more drinks on one occasion?: Never Total Score: 0 Score Reviewed/Action Taken: No TIANNA-7 AMB Questionnaire TIANNA-7 Date TIANNA - 7 assessed: 06/02/24 Feeling nervous, anxious, or on edge: 0 = Not at all Not being able to stop or control worryin = Not at all Worrying too much about different things: 0 = Not at all Trouble relaxin = Not at all Being so restless that it is hard to sit still: 0 = Not at all Becoming easily annoyed or irritable: 0 = Not at all Feeling afraid as if something awful might happen: 0 = Not at all Total TIANNA-7 score (0-4 normal; 5-9 mild; 10-14 moderate; 15-21 severe): 0 Source: Developed by Drs. Quirino Coats, Radha Reed, Bruno Reeves and colleagues, with an educational marleen from [employer]. TIANNA-7 Assessment Billing TIANNA-7 Assessment Tool: TIANNA-7 Assessment 09373 Physical exam (Primary Care) Vital Signs: Last Vital Signs Pulse 68 06/02/24 08:52 BP 142/90 H 06/02/24 08:52 Pulse Ox 99 06/02/24 08:52 Oxygen Delivery Method Room Air 06/02/24 08:52 BMI result Body Mass Index 30.6 Tobacco/Smoking Status: Tobacco use Status Tobacco use date assessed 06/02/24 06/02/24 08:57 Patient Tobacco Use Status Never used Tobacco 06/02/24 08:57 e-Cigarette/Vaping Use Never Used 06/02/24 08:57 PHQ-9: PHQ-9 Score PHQ-9: Total score 0 06/02/24 08:57 Depression Screening Interpretation: Negative Thrive Assessment: Date of Thrive Assessment Date Thrive assessed 05/28/24 06/02/24 08:57 Const General: alert; No acute distress Eyes Conjunctivae: conjunctivae normal Resp Auscultation: clear to auscultation bilaterally Cardio Rate: regular rate Rhythm: regular rhythm GI Inspection: Yes normal to inspection Extrem General: Yes normal to inspection and No edema Coding Level of Care Code Est Pt Level 4 (28300) Complex EM visit Add On G2211 Diagnoses Aseptic meningitis G03.0 Melanoma C43.9 Essential hypertension I10 Hypertension type: essential hypertension Hypercholesterolemia E78.00 Additional Codes TIANNA-7 Assessment Billing - TIANNA-7 Assessment Tool: TIANNA-7 Assessment 02247 ([id number]) PHQ-9 - 10008 - PHQ-9 Billing: Yes ([id number]) Assessment & Plan Assessment & Plan (1) Aseptic meningitis: Code(s): G03.0 - Nonpyogenic meningitis Category: Medical Plan: Resolved still on steroids presently and on a taper. Chemotherapy has been held for the moment. (2) Melanoma: Comment: Right thigh mass January 2024 biopsy March 2024 Soft tissue, right anterior upper thigh, biopsy: Melanoma, presumed metastatic. Code(s): C43.9 - Malignant melanoma of skin, unspecified Category: Surgical Plan: Patient continues to follow-up with Hematology-Oncology. (3) Hypertension: Code(s): I10 - Essential (primary) hypertension Category: Medical Qualifiers: Hypertension type: essential hypertension Qualified Code(s): I10 - Essential (primary) hypertension Plan: Continue with blood pressure medication. Decrease salt intake and exercise presently on enalapril 10 mg once a day and hydrochlorothiazide 12.5 mg once a day patient was advised to monitor at home sit down for about 3-5 minutes and record the blood pressure. Will have patient follow-up in 3 months (4) Hypercholesterolemia: Code(s): E78.00 - Pure hypercholesterolemia, unspecified Category: Medical Plan: Avoid fried foods, chicken skin, eggs, butter margarine, pastries and meat. Be it pork or beef they have a lot of cholesterol on atorvastatin 10 mg at bedtime LDL goal of less than 130 and triglyceride of less than 150. Patient's last blood work was in 12/02/2023. Medications: New hydrochlorothiazide 12.5 mg PO DAILY 90 caps 3RF I10 - Essential (primary) hypertension atorvastatin 10 mg PO BEDTIME 90 tabs 3RF E78.00 - Pure hypercholesterolemia, unspecified
== END 2024-06-02 09:39 | disposition home or self-care (01) ==
PROVIDERS: PCP Internal Medicine; Visit Provider Internal Medicine
DX: G03.0 Nonpyogenic meningitis (principal); C43.9 Malignant melanoma of skin, unspecified; I10 Essential (primary) hypertension; E78.00 Pure hypercholesterolemia, unspecified

== ENCOUNTER → 2024-06-02 08:37 | Outpatient (BNVA) | payer MEDICARE, OTHER, SELFPAY | PROVIDERS: PCP Internal Medicine; Visit Provider Internal Medicine | DX: E87.1 Hypo-osmolality and hyponatremia (principal); I10 Essential (primary) hypertension; G03.0 Nonpyogenic meningitis; C43.9 Malignant melanoma of skin, unspecified; E78.00 Pure hypercholesterolemia, unspecified; Z79.899 Other long term (current) drug therapy | CPT/HCPCS: 96127; 99212 ==

== ENCOUNTER 2024-06-12 08:11 | Outpatient (REF) | payer MEDICARE, OTHER, SELFPAY ==
--- OUTSIDE RECORDS SUMMARY | 2024-06-12 08:13 | XMS_ITS ---
Author Organization [facility] Address [address] [place] [address] Care Team Providers Care Industrial Organizational Psychologist Name Role Phone Raghu Contreras MD Primary Care Provider Estrella Ewing [facility] [phone] Encounters Encounter Location Date Provider Diagnosis [facility] [address] [place] [address] 04/21/2024 Estrella Mosqueda PLAN OF TREATMENT No Information
--- OUTSIDE RECORDS SUMMARY | 2024-06-12 08:14 | XMS_ITS | Patient Health Record ---
Author Organization [facility] Address [address] [place] [address] Care Team Providers Care Painter Ordnance Name Role Phone Raghu Contreras MD Primary Care Provider Estrella Ewing Unavailable [phone] ALLERGIES No Known Allergies REASON FOR REFERRAL [...] screening (Z12.11) Active confirmed Colon cancer screening (203311699) Problem Encounter for screening for malignant neoplasm of colon (Z12.11) Active confirmed [id number] Problem History of adenomatous polyp of colon (Z86.010) Active confirmed History of adenomatous polyp of colon (177093930) Problem Encounter for other preprocedural examination (Z01.818) Active confirmed Pre-procedure evaluation check (680073618) Problem Encounter for long-term (current) use of high-risk medication (Z79.899) Active confirmed Long-term curre nt use of drug therapy (245243140) Problem Pre-procedural examination (Z01.818) Active confirmed [id number] VITAL SIGNS Blood pressure diastolic 00 mm Hg 03/02/2024 Height 69 in 03/02/2024 Blood pressure systolic 00 mm Hg 03/02/2024 Weight 206 lbs 03/02/2024 BMI 30.42 kg/m2 03/02/2024 Encounters Encounter Location Date Provider Diagnosis [facility] [address] [place] [address] 03/02/2024 Estrella Mosqueda History of adenomato us polyp of colon Z86.010 ; Encounter for long-term (current) use of high-risk medication Z79.899 ; Colon cancer screening Z12.11 and Encounter for other preprocedural examination Z01.818 [facility] [address] [place] [address] 04/21/2024 Estrella Mosqueda ASSESSMENTS Encounter Date Diagnosis [...] OF [place] [address] [place] [address] [id number] ИВАН SHELBY Self - patient is the insured [employer] [address] [place] [address] [phone] [id number] ИВАН SHELBY Self - patient is the insured MEDICAL (GENERAL) HISTORY Medical History History ICD Code Hypertension Hyperlipidemia Denies IA,DM,CVA,Lung disease,renal dise ase Chronic right-sided abdomina l [...]
--- OUTSIDE RECORDS SUMMARY | 2024-06-12 08:14 | XMS_ITS ---
Author Organization [facility] Address [address] [place] [address] Care Team Providers Care Space And Missile Defense Operations Name Role Phone Raghu Contreras MD Primary Care Provider Estrella Ewing Unavailable [phone] ALLERGIES No Known Allergies REASON FOR VISIT [...] confirmed History of adenomatous polyp of colon (008620615) Problem Colon cancer screening (Z12.11) Active confirmed Colon cancer screening (371030701) Problem Encounter for other preprocedural examination (Z01.818) Active confirmed Pre-procedure evaluation check (103907674) Problem Encounter for long-term (current) use of high-risk medication (Z79.899) Active confirmed Long-term current use of drug therapy (879353751) VITAL SIGNS BMI 30.42 kg/m2 03/02/2024 Blood pressure systolic 00 mm Hg 03/02/20 24 Blood pressure diastolic 00 mm Hg 024 Height 69 in 03/02/2024 Weight 206 lbs 03/02/2024 Encounters Encounter Location Date Provider Diagnosis [facility] [address] [place] [address] 03/02/2024 Estrella Mosqueda History of adenomato us [...]
--- OUTSIDE RECORDS SUMMARY | 2024-06-12 08:14 | XMS_ITS | Continuity of Care Document ---
Author Name [facility] Organization [facility] Care Team Providers Care School Plant Consultant Name Role Phone [facility] Unavailable Unavailable Medications Combined list of outpatient [...] TABLET, ORAL, MYLAN, 500 ea. BOTTLE Active [id number] 4 2023 90 Pharmac y Data Transac tion Service Facilit y ATORVASTATI N CALCIUM (ATORVASTAT IN CALCIUM), 10 MG, TABLET, ORAL, MYLAN, 500 ea. BOTTLE Active [id number] 4 2023 90 Pharmac y Data Transac tion Service Facilit y ENALAPRIL MALEATE (enalapril maleate), 10 MG, TABLET, ORAL, [facility] [facility], 1000 ea. BOTTLE Cancele d [id number] : 2023 0 Pharmac y Data Transac tion Service Facilit y ENALAPRIL MALEATE (enalapril maleate), 10 MG, TABLET, ORAL, [employer] [facility], 1000 ea. BOTTLE Active [id number] 4 2023 90 Pharmac y Data Transac tion Service Facilit y ENALAPRIL MALEATE (enalapril maleate), 10 MG, TABLET, ORAL, [employer] [facility], 1000 ea. BOTTLE Active [id number] 4 2023 90 Pharmac y Data Transac tion Service Facilit y ENALAPRIL MALEATE (ENALAPRIL MALEATE), 10MG, TABLET, ORAL, [employer] [employer], 1000 ea. BOTTLE Cancele d [id number] : 2023 0 Pharmac y Data Transac tion Service Facilit y ENALAPRIL MALEATE (ENALAPRIL MALEATE), 10MG, TABLET, ORAL, [employer] [employer], 1000 ea. BOTTLE Cancele d [id number] : 2023 0 Pharmac y Data Transac tion Service Facilit y HYDROCHLORO THIAZIDE (HYDROCHLOR OTHIAZIDE), 12.5 MG, CAPSULE, ORAL, [employer] [facility], 1000 ea. BOTTLE Active [id number] 4 2023 90 Pharmac y Data Transac tion Service Facilit y HYDROCHLORO THIAZIDE (HYDROCHLOR OTHIAZIDE), 12.5 MG, CAPSULE, ORAL, [facility], 1000 ea. BOTTLE Active [id number] 4 2023 90 Pharmac y Data Transac tion Service Facilit y SILDENAFIL CITRATE (sildenafil citrate), 100 MG, TABLET, ORAL, AMNEAL PHARMACE, 30 ea. BOTTLE Cancele d [id number] : 2023 0 Pharmac y Data Transac tion Service Facilit y Immunizations Combined list of available immunizations from the Department of Defense and Veterans Affairs facilities. Immunization Series Date Given Administered By Site Reaction Lot Number CVX Code Drug Manager Transmission Status Comments Source COVID-19, mRNA, LNP-S, PF, [...] , seasonal, injectabl e, preservat jo-ann free [facility] tetanus and diphtheria toxoids, adsorbed, preservative free, for adult use (2 Lf of tetanus toxoid and 2 Lf of diphtheria toxoid) 1 2001 Unknown, Provider [id number] Sanofi Pasteur ([facility]) complet ed tetanus and diphtheri a toxoids, adsorbed, preservat jo-ann free, for adult use (2 Lf of tetanus toxoid and 2 Lf of diphtheri a toxoid) [facility] typhoid vaccine, parenteral, other than acetone-kille d, dried 1 2001 Unknown, Provider [id number] Sanofi Pasteur ([facility]) complet ed typhoid vaccine, parentera l, other than acetone-k illed, dried [facility] influenza virus vaccine, whole virus 1 2001 Unknown, Provider [id number] Sanofi Pasteur ([facility]) complet ed influenza virus vaccine, whole virus [facility] yellow fever vaccine 1 2001 Unknown, Provider [id number] Sanofi Pasteur ([facility]) complet ed yellow fever vaccine DoD meningococcal polysaccharid e vaccine (MPSV4) 1 2001 Unknown, Provider [id number] Sanofi Pasteur ([facility]) complet ed meningoco ccal polysacch aride vaccine (MPSV4) [facility] influenza virus vaccine, whole virus 1 2000 Unknown, Provider [id number] 16 Leah ([place]) complet ed influenza virus vaccine, whole virus [facility] tuberculin skin test; purified protein derivative solution, intradermal 1 2000 Unknown, Provider [id number] Rhonda (CON) complet ed tuberculi n skin test; purified protein derivativ e solution, intraderm al [facility] influenza virus vaccine, whole virus 1 1999 Unknown, Provider [id number] 16 Wyeth-Ayerst ([place]) complet ed influenza virus vaccine, whole virus DoD typhoid vaccine, parenteral, other than acetone-kille d, dried 1 1999 Unknown, Provider [id number] Merieux (IM) complet ed typhoid vaccine, parentera l, other than acetone-k illed, dried DoD tuberculin skin test; purified protein derivative solution, intradermal 1 1998 Unknown, Provider [id number] 96 Rhonda (CON) complet ed tuberculi n skin test; purified protein derivativ e solution, intraderm al DoD influenza virus vaccine, whole virus 1 1998 Unknown, Provider [id number] 16 Wyjose-Ayjayant (Inactive) ([place]) complet ed influenza virus vaccine, whole virus DoD influenza virus vaccine, whole virus 2 1997 Unknown, Provider [id number] 16 Rhonda (CON) complet ed influenza virus [...] ed measles, mumps and rubella virus vaccine [facility] typhoid vaccine, parenteral, acetone-kille d, dried ([place] ) 2 1995 Unknown, Provider [id number] Merck (MSD) complet ed typhoid vaccine, parentera l, acetone-k illed, dried ([place] ) [facility] Tajik Encephalitis Vaccine SC 3 1994 Unknown, Provider 39 () complet ed Tajik Encephali tis Vaccine [facility] tetanus and diphtheria toxoids, adsorbed, preservative free, for adult use (2 Lf of tetanus toxoid and 2 Lf of diphtheria toxoid) 1 1992 Unknown, Provider 09 () complet tetanus and diphtheri a toxoids, adsorbed, preservat jo-ann free, for adult use (2 Lf of tetanus toxoid and 2 Lf of diphtheri a toxoid) [facility] trivalent poliovirus vaccine, live, oral 1 1983 [...]
== END 2024-06-12 08:12 | disposition home or self-care (01) ==
LOC: HO.PET 08:11
PROVIDERS: PCP Internal Medicine; Visit Provider Internal Medicine
DX: Z13.89 Encounter for screening for other disorder (principal)

== ENCOUNTER 2024-06-20 08:13 | Outpatient (REF) | payer MEDICARE, OTHER, SELFPAY ==
--- NOTE | ~2024-06-20 | PE_ITS ---
EXAMINATION: FLUORINE-18 FDG PET/CT SCAN CLINICAL INFORMATION: Malignant melanoma of the skin. Right groin adenopathy on biopsy consistent melanoma. TECHNIQUE: 30 minutes following the intravenous administration of 22.4 mCi of fluorine 18 FDG, images from the top of the vertex to the toes were obtained using a combined PET/CT scanner with CT scan based attenuation correction. No intravenous contrast was administered. Transverse, coronal, sagittal, and volume reconstruction projections were obtained. The patient's blood glucose as determined by a finger stick, was 74 mg/dL immediately prior to injection. The radiotracer was injected intravenously through left antecubital vein, without any complications. Total CT exam dose-length product 398.5 mGy-cm. * These CT images were obtained using dose optimization techniques as appropriate, variously including the following: Automated exposure control * Adjustment of mA and/or kV according to patient size (this includes techniques or standardized protocols for targeted exams where dose is matched to indication/reason for exam; i.e. extremities or head) * Use of iterative reconstruction technique COMPARISON: None available. FINDINGS: HEAD AND NECK: No abnormal radiotracer uptake. No large intracranial hemorrhage, acute territorial infarct or significant shift of midline structures. CHEST: Ports and Devices: None Lungs: No abnormal radiotracer uptake. Pleura: No significant pleural effusion. Lymph Nodes: No tracer-avid mediastinal, hilar or internal mammary or axillary lymphadenopathy. Mediastinum: There is no significant pericardial effusion/thickening. Breasts/Chest Wall: No abnormal radiotracer uptake. ABDOMEN/PELVIS: Liver/Biliary System: No focal tracer-avid liver lesion. The gallbladder appears unremarkable. Pancreas: Normal. Spleen: No abnormal radiotracer uptake. No evidence of splenomegaly. Adrenal Glands: No abnormal radiotracer uptake. Kidneys: No hydronephrosis, hydroureter or renal calculi bilaterally. Bowel: There is no significant bowel dilatation to suggest obstruction. There is mild constipation. Appendix is normal. Lymph Nodes: No tracer avid retroperitoneal, mesenteric or pelvic and/or groin lymphadenopathy. Small scattered lymph nodes are seen in the right groin on CT with postbiopsy changes. The largest lymph node right groin measures 1.6 cm the biopsied lesion measures 1.[address] slice 63/109. Pelvic Organs: The urinary bladder is underdistended. MUSCULOSKELETAL: Slight heterogeneous activity seen within the spine but no focal FDG active lesion seen. There is mild facet joint L5-S1 arthropathy.. There is mild scoliosis of dorsolumbar spine. Moderate spondylosis seen in the lower dorsal spine. VASCULAR: Unremarkable BILATERAL LOWER EXTREMITIES: There is no abnormal metabolic activity seen within the lower extremities especially along the superficial or deep soft tissues. PET/PET CT fusion whole body IMPRESSION: No abnormal FDG activity seen on whole body imaging from top of the vertex to the toes to suspect any primary or metastatic lymphadenopathy. Small lymph nodes in right groin which are nonmetabolic active. There are postbiopsy changes in the right groin. Electronically signed by: Jag Bray MD 06/22/2024 08:43 AM EST
== END 2024-06-20 08:14 | disposition home or self-care (01) ==
LOC: HO.PET 08:13
PROVIDERS: PCP Internal Medicine; Visit Provider Internal Medicine
DX: Z13.89 Encounter for screening for other disorder (principal)

== ENCOUNTER 2024-07-30 16:57 | Inpatient (IN) | payer MEDICARE, OTHER, SELFPAY ==
--- NOTE | ~2024-07-30 | FL_ITS ---
FLUOROSCOPIC LUMBAR PUNCTURE INDICATION: Fevers. Headache. Melanoma. TECHNIQUE: Risks and benefits and possible complications were discussed with the patient and the consent form was signed. Patient was placed prone on the fluoroscopy table. The back was prepped and draped in routine sterile fashion. Betadine was used as a skin antiseptic. Utilizing fluoroscopic guidance, the L4-5 interlaminar space was accessed with a 22 gauge Lizzeth spinal needle and clear CSF fluid obtained. Opening pressure was 19 cm H2O. 8 cc of fluid was sent for analysis. The needle was removed without immediate complications. Total fluoroscopy time: 1 minute 8 seconds FL/FL guided lumbar puncture LP IMPRESSION: Successful fluoroscopic guided lumbar puncture at L4-L5. This procedure was performed by Casey Canada PA-C and supervised by Dr. Plummer. Electronically signed by: Vern Plummer MD 08/03/2024 03:24 PM [facility]
--- NOTE | ~2024-07-30 | MR_ITS ---
EXAMINATION: MR BRAIN WITHOUT AND WITH CONTRAST CLINICAL INFORMATION: Melanoma, rule out brain metastases. Fever, feeling unwell. COMPARISON: None available. Correlation made with CT head 08/01/2024. TECHNIQUE: Multiplanar, multisequence MRI of the brain was obtained before and after the intravenous administration of 10 mL Gadavist. Examination performed on a 1.5 Ivania high-field Siemens unit. FINDINGS: There is no diffusion restriction. There is no intracranial hemorrhage, acute infarction, mass effect, or gross edema. Ventricles, sulci, and cisterns are normal in size and configuration for patient age. No shift of midline. No significant abnormal hemosiderin deposition is identified. There are numerous small enhancing nodules both in the cortex and white matter bilateral frontal lobes, left mid and anterior temporal lobe, and left parietal lobe. The largest measures 4 mm in the left superior frontal gyrus (series 16, image 132). There is a solitary infratentorial enhancing 3 mm lesion in the left brachium pontis (series 16, image 51). These all demonstrate a tiny amount of surrounding T2 hyperintensity/edema. Findings are consistent with numerous brain metastases. Midline structures appear normally formed. The pituitary gland appears normal. Posterior fossa structures appear normal. Cerebellar tonsils are appropriately located. Major flow voids are preserved within the skull base. The globes and orbital contents demonstrate no abnormalities. Paranasal sinuses are clear bilaterally. Nasal septum is midline without spur. There are small mastoid effusions. The tympanic cavities are normally aerated. Extracranial soft tissues demonstrate a 9 mm left occipital lymph node (series 8, image 3). No suspicious bone marrow changes are evident. Atlantoaxial joint is normal. MR/MR head/brain wo/w con IMPRESSION: 1. Numerous tiny enhancing brain metastases involving the bilateral frontal lobes, left parietal lobe, left greater than right temporal lobes, and 2 in the posterior fossa. Largest is in superior left frontal gyrus measuring 4 mm. These are accompanied by a tiny amount of T2 prolongation. 2. Otherwise, no evidence of intracranial hemorrhage, acute infarction, gross mass effect or significant edema. 3. Small mastoid effusions. 4. There is a 9 mm left occipital lymph node. Electronically signed by: Vern Plummer MD 08/02/2024 02:11 PM [facility]
--- NOTE | ~2024-07-30 | CT_ITS ---
CLINICAL HISTORY: Metastc melanoma, SOB of breath, hypoxia, R PE CT angiography chest with contrast. 3D Postprocessing. Comparison: CR/SR - XR CHEST 1V - 05/27/24 16:[address]/WI/SR - CT CHEST W IV CON - 03/21/24 13:46 EDT Findings: The heart size is normal. RV/LV ratio is normal moderate cardiomegaly. The thoracic aorta is normal caliber. No acute pulmonary embolus. The visualized mediastinum are unremarkable. Motion degraded images. Low lung volume. Bibasilar atelectatic/dependent changes. No pleural effusion or pneumothorax. The visualized upper abdomen is unremarkable. No acute fractures. IMPRESSION: 1. No pulmonary embolus. No acute aortic syndrome. 2. Motion degraded images. Low lung volume bibasilar atelectatic/dependent changes. This document has been electronically signed by: Airam Hussein MD on 07/30/2024 19:14:42
--- NOTE | ~2024-07-30 | XR_ITS ---
CLINICAL HISTORY: hypoxia 1 view chest x-ray Comparison: 05/27/2024 Findings: Lungs are clear without acute infiltrates. No pneumothorax. Heart size enlarged. No acute bony abnormalities. Impression: No acute processes This document has been electronically signed by: William Drew MD on 08/01/2024 20:12:24
--- NOTE | ~2024-07-30 | CT_ITS ---
EXAMINATION: CT HEAD WITHOUT CONTRAST CLINICAL INFORMATION: Headache, history of melanoma. Rule out mass/mass effect. COMPARISON: 05/27/2024. TECHNIQUE: Contiguous axial imaging was performed from the skull base to vertex without intravenous administration of contrast. This CT examination was performed using dose optimization techniques as appropriate, variously including the following: *Automated exposure control *Adjustment of mA and/or kV according to patient size (this includes techniques or standardized protocols for targeted exams where dose is matched to indication/reason for exam; i.e. extremities or head) *Use of iterative reconstruction technique FINDINGS: There is no evidence of intracranial hemorrhage or extra-axial fluid collection. There is no mass effect, or edema. No CT evidence of acute territorial infarct. Ventricles, sulci, and cisterns are normal in size and configuration for patient age. No hydrocephalus. No midline shift. Negative hyperdense MCA sign. Negative insular ribbon sign. No significant white matter abnormalities. Globes and orbital contents image normally. Extracranial soft tissues demonstrate several small calcified cutaneous scalp nodules, likely calcified sebaceous cysts. The paranasal sinuses, mastoid air cells, and tympanic cavities are normally aerated. Right nasal septal deviation with spurring. No suspicious bony abnormalities. There are no acute fractures evident. CT/CT head/brain wo IV con IMPRESSION: No acute intracranial abnormality. Electronically signed by: Vern Plummer MD 08/01/2024 04:55 PM EST
[2024-07-30 17:16] VITALS: BP 117/68; PULSE 96; RESP 18; TEMP 39.3; O2SAT 88; BMI 33.5
--- NOTE | 2024-07-30 17:22 | ED.HA ---
HPI - Headache General Chief Complaint: Nausea/Vomiting/Diarrhea Stated Complaint: had meningitis in may, fever,neck pain Time Seen by Provider: 07/30/24 17:12 Source: patient Mode of arrival: ambulatory Limitations: no limitations History of Present Illness HPI Narrative: 68-year-old male with past medical history of prostate cancer s/p radical prostatectomy, nephrolithiasis, osteoarthritis, HLD, HTN, metastatic melanoma (left groin lymph , retroperitoneal lymph nodes and lumbar spine) currently on chemotherapy (on nivolumab maintenance)follows with COLEEN Helm who presents to the emergency department for evaluation of febrile illness. Patient states that at 00:03 hours this morning he woke up and had 15 minutes of vomiting. He states that shortly after vomiting he developed a severe headache. He points to the top of his head, describes the pain as if a hammer is pounding his head. The pain is 10/10. The patient felt hot cold at home but did not take his temperature. Here in the emergency department his temperature was a 102.8 degrees F. patient states that he was had postnasal drip and a cough which has been chronic. He states that this morning however he felt short of breath and had significant dyspnea on exertion after walking upstairs. He has persistent nausea but he was had no further episodes of vomiting. He denied diarrhea. Denied frequency, urgency or dysuria. Denied myalgias but states he feels severely fatigued. Patient was admitted to [facility] [place] on 05/27/2024 for severe headache and nausea came on after a bowel movement. CT head with contrast was negative. The patient developed a fever lumbar puncture performed revealed clear, colorless fluid with elevated total protein of 54, WBC of 16 and glucose of 45. He tested negative for viral and bacterial meningitis. Cytology was negative. The patient was diagnosed with aseptic meningitis which was felt to be be in adverse effect of immunotherapy. 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 Related Data Home Medications ?Medication ?Instructions ?Recorded ?Confirmed ascorbic acid (vitamin C) 1,000 mg 1 g PO DAILY 05/21/20 07/31/24 tablet multivitamin-ferrous 1 tab PO DAILY 05/21/20 07/31/24 fumarate-folic acid 18 mg-400 mcg tablet (Centrum) omega-3 fatty acids 1,000 mg 1,000 mg PO DAILY 05/21/20 07/31/24 capsule acetaminophen 500 mg tablet 1,000 mg PO Q6H PRN Headache 05/26/24 07/31/24 (Acetaminophen Extra Strength) diphenhydramine HCl 25 mg tablet 25 mg PO BID PRN Rash 05/27/24 07/31/24 (Benadryl Allergy) rahrqze-blepsgqclrujc-sahxdcih 250 1 tab PO Q4-6H PRN Headache 07/31/24 07/31/24 mg-250 mg-65 mg tablet (Excedrin Migraine) psyllium husk 0.4 gram capsule 0.4 g PO BEDTIME 07/31/24 07/31/24 (Fiber (psyllium husk)) Previous Rx's ?Medication ?Instructions ?Recorded enalapril maleate 10 mg tablet 10 mg PO DAILY #90 tabs 03/08/24 ondansetron 8 mg disintegrating 8 mg PO Q8H PRN Nausea #30 tabs 03/22/24 tablet atorvastatin 10 mg tablet 10 mg PO BEDTIME #90 tabs 06/02/24 hydrochlorothiazide 12.5 mg capsule 12.5 mg PO DAILY #90 caps 06/02/24 Allergies Allergy/AdvReac Type Severity Reaction Status Date / Time No Known Allergies Allergy Verified 07/30/24 17:16 Review of Systems Review of Systems: Yes all other systems are reviewed and are negative [facility] Past Medical History [facility] Narrative: Social history: He denies tobacco, alcohol and drug use. Medical History PSA elevation Overweight (BMI 25.0-29.9) Finger fracture, right Nephrolithiasis Osteoarthritis Hypercholesterolemia Hypertension Surgical History History of tonsillectomy Family History Family History Mother Bladder cancer Father Prostate cancer Social History Social History Household Members: None Housing: House Do you presently have visiting nurse or other home services: No Alcohol intake: former Patient Tobacco Use Status: Never used Tobacco e-Cigarette/Vaping Use: Never Used Second Hand Smoke Exposure: No Advance Directives Date on File: 09/22/22 service: No Current occupational status: employed Sexual orientation: Straight/Heterosexual Gender identity: Male Cognitive needs: No Hearing needs: No Vision needs: Yes Physical Exam Vital Signs: Vital Signs: Last Vital Signs Temp 102.5 F H 07/31/24 15:20 Pulse 99 07/31/24 15:20 Resp 18 07/31/24 15:20 BP 121/64 07/31/24 15:20 Pulse Ox 93 07/31/24 15:20 O2 Del Method Nasal Cannula 07/31/24 15:20 O2 Flow Rate 3 07/31/24 15:20 BMI result Body Mass Index 33.5 Vital signs revealed an elevated temperature of a 102.8 degrees F and hypoxia with an O2 saturation of 88% on room air Exam: General: Awake, alert in no distress Head: Normocephalic, atraumatic EENT: PERRL, Lids normal, sclera normal, conjunctiva normal, nose normal , ears normal, throat without erythema or exudates Neck: Supple, no nuchal rigidity, no adenopathy Lung: Breath sounds were symmetric bilaterally, patient has rhonchi at the bases with no rales, and no wheezing Chest: symmetric movement, nontender Heart: regular rate and rhythm, normal S1, S2 no murmurs or rubs Abdomen: soft, non-tender, nondistended, normal bowel sounds Back: no vertebral tenderness, no CVAT Extremities: no deformities, moves all extremities symmetrically Neuro: Awake, alert, oriented, normal speech, cranial nerves intact, moves all extremities symmetrically Psych: Pleasant, cooperative Medications Administered Generic Name Dose Route Start Last Admin Trade Name Freq PRN Reason Stop Dose Admin Acetaminophen 650 mg 07/30/24 20:33 07/31/24 14:00 Acetaminophen 325 Mg Tablet PO 650 mg Q6H PRN Administration Pain, Mild 1-3,fever,headache Ascorbic Acid 1,000 mg 07/31/24 11:15 07/31/24 11:45 Ascorbic Acid 500 Mg Tablet PO 1,000 mg DAILY ZACHARY Administration Enoxaparin Sodium 40 mg 07/30/24 20:45 07/30/24 21:10 Enoxaparin Sodium 40 Mg/0.4 Ml Syringe SUBCUT 40 mg Q24H ZACHARY Administration Ampicillin Sodium/Sulbactam 100 mls @ 200 mls/hr 07/30/24 21:30 07/31/24 17:09 Sodium 3 gm/ Sodium Chloride IV Infused Q6H ZACHARY Infusion Ibuprofen 600 mg 07/31/24 15:21 07/31/24 16:32 Ibuprofen 600 Mg Tablet PO 600 mg Q6H PRN Administration Fever >101 Sodium Chloride 3 ml 07/31/24 00:00 07/31/24 16:36 0.9 % Sodium Chloride Flush 3 Ml Syringe IVFLUSH 3 ml QSHIFT ZACHARY Administration Discontinued Medications Generic Name Dose Route Start Last Admin Trade Name Freq PRN Reason Stop Dose Admin Acetaminophen 975 mg 07/30/24 17:20 07/30/24 17:25 Acetaminophen 325 Mg Tablet PO 07/30/24 17:21 975 mg ONCE ONE Administration Ceftriaxone Sodium 1 gm 07/30/24 19:58 07/30/24 21:05 Ceftriaxone Sodium 1 Gm Vial IVPUSH 07/30/24 19:59 1 gm ONCE ONE Administration Diphenhydramine HCl 50 mg 07/30/24 17:39 07/30/24 17:55 Diphenhydramine Hcl 50 Mg/Ml Vial IVPUSH 07/30/24 17:40 50 mg ONCE STA Administration Sodium Chloride 1,000 mls @ 999 mls/hr 07/30/24 19:58 07/30/24 22:15 Ns IV 07/30/24 20:58 Infused .Q1H1M STA Infusion Azithromycin 500 mg/ Sodium 250 mls @ 125 mls/hr 07/30/24 20:00 07/30/24 23:30 Chloride IV 07/30/24 21:59 Infused ONCE ONE Infusion Iohexol 100 ml 07/30/24 18:39 07/30/24 18:41 Iohexol 350 Mg/Ml 100 Ml Infus..Btl IV 07/30/24 18:40 70 ml ONCE ONE Administration Ketorolac Tromethamine 15 mg 07/30/24 17:39 07/30/24 17:55 Ketorolac Tromethamine 15 Mg/Ml Vial IVPUSH 07/30/24 17:40 15 mg ONCE STA Administration Metoclopramide HCl 10 mg 07/30/24 17:39 07/30/24 17:55 Metoclopramide Hcl 10 Mg/2 Ml Vial IVPUSH 07/30/24 17:40 10 mg ONCE STA Administration Morphine Sulfate 4 mg 07/30/24 19:58 07/30/24 21:06 Morphine Sulfate 4 Mg/Ml Cartridge IVPUSH 07/30/24 19:59 4 mg ONCE STA Administration Protocol Medical Decision Making Medical Decision Making [facility] Narrative: 68-year-old male with past medical history of prostate cancer s/p radical prostatectomy, nephrolithiasis, osteoarthritis, HLD, HTN, metastatic melanoma (left groin lymph , retroperitoneal lymph nodes and lumbar spine) currently on chemotherapy (on nivolumab maintenance)follows with COLEEN Helm who presents to the emergency department for evaluation of nausea, vomiting, headache after vomiting, fever, chills, cough, shortness of breath, fatigue with symptoms beginning at 00:30 hours in the day of arrival. Patient had admission to [facility] on 05/27/2024 for severe headache that came on after straining to move his bowels. During that admission the patient did develop a fever headache stiff neck and was felt to have aseptic meningitis caused by his immunotherapy for his metastatic melanoma. Patient also had a low sodium of 126 at that time secondary to SIADH. Vital signs revealed a fever of 102.8 and hypoxia with an O2 saturation of 88% on room air. Patient has no nuchal rigidity. Patient's lung exam did reveal rhonchi at the bases with no rales or wheezing. 18:09 Differential diagnosis: ?Includes but is not limited to intracranial bleed, subarachnoid hemorrhage, bacterial meningitis, aseptic meningitis, pneumonia, pulmonary embolism viral syndrome, influenza, COVID, RSV, hyponatremia, electrolyte Course: 18:09 I did order laboratory evaluation to include blood cultures, lactic acid. We will also get a CT scan of the head to rule out intracranial bleed. Given the patient's metastatic melanoma pulmonary embolism needs to be considered therefore I did order CT pulmonary angiogram PE protocol to evaluate for PE versus pneumonia as the cause of his hypoxia. Given his previous SIADH I will not give him any IV fluid until his sodium is available. 20:00 My interpretation patient's laboratory evaluation is as follows: WBC was normal 8200. Normocytic anemia with an H&H of 13.4 and 39.6. Venous pH revealed a normal pH of 7.41, normal CO2 of 51 and a slightly elevated . CMP was normal except for an elevated AST and ALT of 53 and 56. Troponin was detectable but not elevated 34.9 and repeat troponin was 38.5 which did not change significantly suggesting the does not have myocardial injury/ infarction is the cause of his chest pain. BNP was normal at 26. bicarb of 32. COVID-19, influenza and RSV were negative. lactic acid was normal at 0.6. CT pulmonary angiogram did not reveal any pulmonary embolism however the patient may have bilateral lower lobe infiltrates. Given his hypoxia and this finding, I ordered ceftriaxone 1 g IV and azithromycin 500 mg IV. Patient does not have hyponatremia therefore I ordered normal saline x1 L IV. At this time I do not think that the patient needs a spinal tap since I do not think that he was bacterial meningitis. I did discuss admission over tiger text with the covering hospitalist, , the patient will be admitted for further treatment of pneumonia. Admission/Observation Consideration of admission/observation: Escalation of care including admission/observation considered (Yes) Consult Healthcare Provider Management of the patient was discussed with: Hospitalist (Dr. Elder) Lab Data MDM Lab Attestation statement: I reviewed the patient's lab results. 07/31/24 05:29 07/31/24 05:29 Labs: Lab Results 07/30/24 07/30/24 Range/Units 17:47 17:50 WBC 8.2 (4.8-10.8) X10*3/uL RBC 4.44 L (4.60-5.80) X10*6/uL Hgb 13.4 L (14.0-18.0) g/dl Hct 39.6 L (42.0-52.0) % MCV 89.2 (80.0-98.0) fL MCH 30.2 (27.0-33.0) pg MCHC 33.8 (31.0-36.0) g/dl RDW 14.9 (11.0-16.0) % Plt Count 232 (160-400) X10*3/uL MPV 8.0 L (9.4-12.4) fL Immature Gran % (Auto) 0.4 (0.0-0.4) % Neut % (Auto) 64.0 (45-73) % Lymph % (Auto) 23.5 (20-40) % Weber % (Auto) 10.8 (2-11) % Eos % (Auto) 0.9 (0-4) % Baso % (Auto) 0.4 (0-2) % Lymph # (Auto) 1.9 (1.2-4.9) X10*3/uL Weber # (Auto) 0.9 (0.1-1.2) X10*3/uL Eos # (Auto) 0.1 (0.0-0.4) X10*3/uL Baso # (Auto) 0.0 (0.0-0.2) X10*3/uL Abs Immat Gran (auto) 0.03 (0.00-0.03) X10*3/uL Absolute Neuts (auto) 5.3 (2.0-8.3) x10*3/uL Absolute Nucleated RBC 0.000 (0.0-0.012) X10*3/uL Nucleated RBC % (auto) 0.0 (0.0-0.2) /100WBC APTT 33.4 (26.0-36.8) SEC VBG pH 7.41 (7.32-7.43) VBG pCO2 51 mmHg VBG pO2 36 mmHg VBG HCO3 32 H (22-26) mmol/L VBG O2 Saturation 57.0 % VBG Base Excess 6.8 mmol/L Sodium 137 (135-145) mmol/L Potassium 3.7 (3.3-5.1) mmol/L Chloride 98 (96-108) mmol/L Carbon Dioxide 28 (22-29) mmol/L Anion Gap 15 (12-20) BUN 13 (9-16) mg/dL Creatinine 1.02 (0.5-1.4) mg/dL Estim Creat Clear Calc 83.0 Estimated GFR > 60 Random Glucose 81 (60-115) mg/dL Lactic Acid 0.8 (0.5-2.0) mmol/L Calcium 9.0 D (8.4-10.2) mg/dL Magnesium 1.9 (1.6-2.6) mg/dL Total Bilirubin 0.9 (0.0-1.0) mg/dL AST 53 H (5-37) U/L ALT 56 H (0-40) U/L Alkaline Phosphatase 64 (39-117) U/L Total Creatine Kinase 109 (38-174) U/L Troponin I High Sens 34.9 (<3.5-35.0) ng/L B-Natriuretic Peptide 26 (<100) pg/mL Total Protein 7.7 (6.5-8.0) g/dL Albumin 4.2 (3.5-5.0) g/dL Lipase 22 (8-78) U/L Influenza Type A (PCR) NEGATIVE (Negative) Influenza Type B (PCR) NEGATIVE (Negative) RSV RNA Qual (PCR) NEGATIVE (Negative) SARS-CoV-2 RNA (RT-PCR) NEGATIVE (Negative) Independent Interpretation I performed an independent interpretation of an: EKG Interpretation: My independent interpretation patient's 12 EKG done on 07/30/2024 at 19:07 hours is as follows: Normal sinus rhythm rate of 87, normal MS interval, QRS duration QTC interval, less than [address] segment depression leads 1, 2, aVL, V3 through V6 which appeared to be more prominent than an EKG dated 06/15/2007 at 14:01 hours. External Record Review External record reviewed: Inpatient record and Office record Chronic Conditions Patient?s care impacted by: Hypertension and Other (Metastatic melanoma) Critical Care Time Critical Care Time Critical Care Time: Yes Total Critical Care Time: 40 Attestation: Critical Care: The patient was critically ill with a high probability of imminent or life threatening deterioration. I spent greater than 30 minutes of discontinuous time evaluating the patient,delivering critical care at the bedside, discussing and evaluating pertinent data with consultants. Critical care time does not include time spent performing separately billable procedures or teaching. Total time spent performing critical care was 40 minutes. Discharge Plan Discharge Clinical Impression: Pneumonia, Hypoxia Patient Disposition: Admitted As Inpatient Interventions: Admission Worksheet (ED) Last Done: 07/31/24 08:28 Discharge Date/Time: 07/31/24 09:10
[2024-07-30] MEDS: Acetaminophen 325 MG TABLET 975 MG PO (17:25)
--- NOTE | 2024-07-30 17:35 | ECG_ITS ---
Test Reason : WEAKNESS Blood Pressure : */* mmHG Vent. Rate : 87 BPM Atrial Rate : 87 BPM P-R Int : 150 ms QRS Dur : 78 ms QT Int : 372 ms P-R-T Axes : 53 6 44 degrees QTcB Int : 447 ms Normal sinus rhythm Nonspecific T wave abnormality Abnormal ECG When compared with ECG of 15-Jun-2007 14:01, Nonspecific T wave abnormality now evident in Lateral leads Referred By: Eros Dover Electronically Signed By: HAILEY MILIAN
[2024-07-30 17:55] LABS: Basophils Percent Auto 0.4 % (0-2); Eosinophils Absolute Auto 0.1 X10*3/uL (0.0-0.4); Eosinophils Percent Auto 0.9 % (0-4); Hematocrit 39.6 % (42.0-52.0); Hemoglobin 13.4 g/dl (14.0-18.0); Imm Gran Abs Auto 0.03 X10*3/uL (0.00-0.03); Imm Gran Pct Auto 0.4 % (0.0-0.4); Lymphocytes Absolute Auto 1.9 X10*3/uL (1.2-4.9); Lymphocytes Percent Auto 23.5 % (20-40); MANUAL DIFF FLAG NO; Mean Corpuscular HGB Conc 33.8 g/dl (31.0-36.0); Mean Corpuscular Hemoglobin 30.2 pg (27.0-33.0); Mean Corpuscular Volume 89.2 fL (80.0-98.0); Monocytes Absolute Auto 0.9 X10*3/uL (0.1-1.2); Monocytes Percent Auto 10.8 % (2-11); Neutrophils Absolute Auto 5.3 x10*3/uL (2.0-8.3); Platelet Count 232 X10*3/uL (160-400); Red Blood Count 4.44 X10*6/uL (4.60-5.80); Red Cell Distribution Width 14.9 % (11.0-16.0); White Blood Count 8.2 X10*3/uL (4.8-10.8)
[2024-07-30] MEDS: Metoclopramide HCl 10 MG/2 ML VIAL IVPUSH (17:55)
[2024-07-30] MEDS: diphenhydrAMINE HCL 50 MG/ML VIAL IVPUSH (17:55)
[2024-07-30] MEDS: Ketorolac Tromethamine 15 MG/ML VIAL IVPUSH (17:55)
[2024-07-30 17:58] LABS: Venous Blood Gas Refer to POC result
[2024-07-30 17:58] LABS: VBG Base Excess 6.8 mmol/L; VBG HCO3 32 mmol/L (22-26); VBG pCO2 51 mmHg; VBG pH 7.41 (7.32-7.43); VBG pO2 36 mmHg
[2024-07-30 18:03] LABS: Partial Thromboplastin Time 33.4 SEC (26.0-36.8)
[2024-07-30 18:11] LABS: Alanine Aminotransferase 56 U/L (0-40); Albumin Level 4.2 g/dL (3.5-5.0); Alkaline Phosphatase 64 U/L (39-117); Anion Gap 15 (12-20); Aspartate Amino Transferase 53 U/L (5-37); Bilirubin Total 0.9 mg/dL (0.0-1.0); Blood Urea Nitrogen 13 mg/dL (9-16); Carbon Dioxide 28 mmol/L (22-29); Chloride 98 mmol/L (96-108); Estimated Glomerular Filt Rate > 60; Glucose Random 81 mg/dL (60-115); Lipase 22 U/L (8-78); Magnesium 1.9 mg/dL (1.6-2.6); Potassium 3.7 mmol/L (3.3-5.1); Sodium 137 mmol/L (135-145); Total Protein 7.7 g/dL (6.5-8.0)
[2024-07-30 18:12] LABS: Lactic Acid 0.8 mmol/L (0.5-2.0)
[2024-07-30 18:15] LABS: B Type Natriuretic Peptide 26 pg/mL (<100)
[2024-07-30 18:19] LABS: Troponin-I High Sensitivity 34.9 ng/L (<3.5-35.0)
[2024-07-30 18:29] LABS: Influenza A PCR NEGATIVE (Negative); Influenza B PCR NEGATIVE (Negative); Resp Syncy Virus RNA Qual PCR NEGATIVE (Negative); SARS COV2 PCR INHOUSE NEGATIVE (Negative)
[2024-07-30] MEDS: iohexoL 350 MG/ML 100 ML INFUS..BTL IV (18:41)
[2024-07-30 19:00] VITALS: TEMP 36.4
--- NOTE | 2024-07-30 21:03 | PM.IMHP ---
History of Present Illness Date of Service: 07/30/24 Attending physician on admission: Daria Elder Chief Complaint: headache, nausea, vomiting Patient is a 68-year-old male with a past medical history significant for prostate cancers s/p radical prostatectomy, nephrolithiasis, OA, HLD, HTN, metastatic melanoma (L groin) receiving chemotherapy with Dr. Smalls, DVT and recent admission in May for aseptic meningitis, presents vomiting and headache. He states that he felt was very similar to his recent episode of meningitis however has improved with receiving pain management including Toradol, Benadryl, Reglan and morphine. Previously he rated his pain a 10/10, now significantly improved but no numeric given. He is also found a fever of 102.8 and hypoxia at 88% on room air. He has had a chronic cough and shortness of breath as well as fatigue. He denies any sensitivity to light or neck pain. He had woken in the middle of the night at 00:30 with 1 episode of nausea and vomiting, after vomiting nausea went away and has not experienced any since. He denies any hematemesis, diarrhea, or abd sx. Review of Systems Constitutional: Constitutional: Denies body ache(s), Reports chills, Denies fatigue, Reports fever(s) and Reports headache(s) Eyes: Eyes: Denies change in vision and Denies photophobia ENT: Reports headache(s), Denies nasal congestion, Denies nasal discharge, Denies neck pain and Denies sore throat Cardiovascular: Cardiovascular: Denies chest pain, Denies chest pain at rest, Denies syncope, Denies rapid heart rate, Denies leg edema, Denies lightheadedness, Reports dyspnea and Reports dyspnea on exertion Respiratory: Respiratory: Reports cough (chronic), Reports dyspnea, Reports dyspnea on exertion and Denies wheezing Gastrointestinal: Gastrointestinal: Denies melena, Denies hematochezia, Denies constipation, Denies diarrhea, Reports nausea, Reports vomiting and Denies hematemesis Genitourinary: Genitourinary: Denies hematuria, Denies dysuria, Denies urinary frequency and Denies urinary urgency Musculoskeletal: Musculoskeletal: Denies neck pain, Denies numbness, Denies stiffness and Denies tingling Integumentary/Breasts: Skin/Breast: Denies rash Neurologic: Denies confusion, Denies syncope, Reports headache(s), Denies numbness and Denies tingling Psychiatric: Psychiatric: Denies confusion Endocrine: Endocrine: Denies fatigue Hematologic/Lymphatic: Hematologic/Lymphatic: Denies easy bleeding and Denies easy bruising Allergic/Immunologic: Allergic/Immunologic: Denies wheezing [facility] Medical History PSA elevation Overweight (BMI 25.0-29.9) Finger fracture, right Nephrolithiasis Osteoarthritis Hypercholesterolemia Hypertension Functional capacity: independent ambulation Family History Mother Bladder cancer Father Prostate cancer Surgical History History of tonsillectomy Social History Household Members: None Housing: House Do you presently have visiting nurse or other home services: No Alcohol intake: former Patient Tobacco Use Status: Never used Tobacco e-Cigarette/Vaping Use: Never Used Second Hand Smoke Exposure: No Advance Directives: Yes Advance Directives on File: Yes Advance Directives Date on File: 09/22/22 Do you have a plan to hurt others: No Plan service: Yes Current occupational status: employed Sexual orientation: Straight/Heterosexual Gender identity: Male Cognitive needs: No Hearing needs: No Vision needs: Yes Narrative: No smoking, alcohol or drug use Meds Allergies Allergy/AdvReac Type Severity Reaction Status Date / Time No Known Allergies Allergy Verified 07/30/24 17:16 Active Medications: Current Medications Acetaminophen (Acetaminophen 325 Mg Tablet) 650 mg PO Q6H PRN PRN Reason: Pain, Mild 1-3,fever,headache Calcium Carbonate (Calcium Carbonate 750 Mg Tab.Chew) 750 mg PO Q4H PRN PRN Reason: Heartburn Ceftriaxone Sodium (Ceftriaxone Sodium 1 Gm Vial) 1 gm IVPUSH Q24H [facility] Enoxaparin Sodium (Enoxaparin Sodium 40 Mg/0.4 Ml Syringe) 40 mg SUBCUT Q24H [facility] Azithromycin 500 mg/ Sodium (Chloride) 250 mls @ 125 mls/hr IV ONCE ONE Stop: 07/30/24 21:59 Azithromycin 500 mg/ Sodium (Chloride) 250 mls @ 125 mls/hr IV Q24H [facility] Magnesium Hydroxide (Milk Of Magnesia 30 Ml Oral.Susp) 30 ml PO DAILY PRN PRN Reason: Constipation Melatonin (Melatonin 3 Mg Tablet) 6 mg PO BEDTIME PRN PRN Reason: Insomnia Ondansetron HCl (Ondansetron Hcl 4 Mg/2 Ml Vial) 4 mg IVPUSH Q8H PRN PRN Reason: Nausea and Vomiting Sodium Chloride (0.9 % Sodium Chloride Flush 3 Ml Syringe) 3 ml IVFLUSH QSHIFT [facility] Home Medications ?Medication ?Instructions ?Recorded ?Confirmed ?Last Taken ?Type ascorbic acid (vitamin C) 1,000 mg 1 g PO DAILY 05/21/20 07/28/24 05/27/24 09:00 History tablet multivitamin-ferrous 1 tab PO DAILY 05/21/20 07/28/24 05/27/24 09:00 History fumarate-folic acid 18 mg-400 mcg tablet (Centrum) omega-3 fatty acids 1,000 mg 1,000 mg PO DAILY 05/21/20 07/28/24 05/27/24 09:00 History capsule acetaminophen 500 mg tablet 1,000 mg PO Q6H PRN Headache 05/26/24 07/28/24 Unknown History (Acetaminophen Extra Strength) diphenhydramine HCl 25 mg tablet 25 mg PO BID PRN Rash 05/27/24 07/28/24 Unknown History (Benadryl Allergy) sildenafil 100 mg tablet 100 mg PO DAILY PRN Erectile 05/27/24 07/28/24 Unknown History Dysfunction psyllium seed (sugar) oral powder 0.4 ea PO DAILY 06/01/24 07/28/24 Unknown History Physical Exam Vital Signs and Narrative: Vital Signs: Last Vital Signs Temp 97.6 F 07/30/24 19:00 Pulse 96 07/30/24 17:16 Resp 18 07/30/24 17:16 BP 117/68 07/30/24 17:16 Pulse Ox 88 L 07/30/24 17:16 O2 Del Method Room Air 07/30/24 17:16 BMI result Body Mass Index 33.5 General: AOx3, no acute distress Resp: crackles bilateral lung bases, no wheezing or rhonchi CVS: S1, S2, RRR GI: +BS, NT, no distention Skin: Warm, dry Neuro: Cranial nerves II-XII grossly intact bilaterally. Motor grossly intact bilaterally. no sensitivity to light Extremities: No LE edema Psych: Appropriate affect Const: General: No confusion Orientation/consciousness: No confusion Eyes: Direct Ophthalmoscopy: No photophobia Neuro: General: No confusion Results Labs 07/30/24 17:47 07/30/24 17:47 Labs: Laboratory Results - last 24 hr 07/30/24 07/30/24 17:47 17:50 MCV 89.2 MCH 30.2 MCHC 33.8 RDW 14.9 Plt Count 232 MPV 8.0 L Immature Gran % (Auto) 0.4 Neut % (Auto) 64.0 Lymph % (Auto) 23.5 [place] % (Auto) 10.8 Eos % (Auto) 0.9 Baso % (Auto) 0.4 Lymph # (Auto) 1.9 [place] # (Auto) 0.9 Eos # (Auto) 0.1 Baso # (Auto) 0.0 Abs Immat Gran (auto) 0.03 Absolute Neuts (auto) 5.3 Absolute Nucleated RBC 0.000 Nucleated RBC % (auto) 0.0 APTT 33.4 VBG pH 7.41 VBG pCO2 51 VBG pO2 36 VBG HCO3 32 H VBG O2 Saturation 57.0 VBG Base Excess 6.8 Anion Gap 15 Estim Creat Clear Calc 83.0 Estimated GFR > 60 Random Glucose 81 Lactic Acid 0.8 Calcium 9.0 D Magnesium 1.9 Total Bilirubin 0.9 AST 53 H ALT 56 H Alkaline Phosphatase 64 Total Creatine Kinase 109 B-Natriuretic Peptide 26 Total Protein 7.7 Albumin 4.2 Lipase 22 Influenza Type A (PCR) NEGATIVE Influenza Type B (PCR) NEGATIVE RSV RNA Qual (PCR) NEGATIVE SARS-CoV-2 RNA (RT-PCR) NEGATIVE Assessment and Plan (1) Sepsis: Status: Acute (2) Acute respiratory failure with hypoxia: Status: Acute (3) CAP (community acquired pneumonia): Status: Acute (4) Obesity (BMI 30.0-34.9): Status: Acute Plan Patient is a 68-year-old male with a past medical history significant for prostate cancer s/p radical prostatectomy, nephrolithiasis, OA, HLD, HTN, metastatic melanoma (L groin) receiving chemotherapy with Dr. Smalls, history DVT and recent admission in May for aseptic meningitis, presents vomiting and headache. Acute hypoxic respiratory failure and sepsis secondary to community-acquired pneumonia, suspect aspiration pneumonia due to patient vomiting - WBC normal, tachypneic and fever of 102.8, lactic acid pending, blood cultures x2 pending, not severe sepsis - new hypoxia, improvement with supplementation via NC - chest CTA to rule out PE negative for PE however did show possible bilateral pneumonia - EKG negative - BNP normal - COVID/flu/RSV negative - given 1 L NS in ED - started on ceftriaxone and azithromycin for community-acquired pneumonia however we will switch to Unasyn due to suspected aspiration pneumonia as patient woke in the middle of the night due to vomiting - headache improved with Toradol, Benadryl, Reglan and morphine, no nuchal rigidity or photosensitivity therefore LP was deferred, patient aware of any change in symptoms he will alert us and LP will be considered at that time - monitor CBC and BMP HLD - continue home meds HTN - continue home meds Prostate cancer - s/p radical prostatectomy Metastatic melanoma - followed by Dr. Smalls receiving chemotherapy History DVT - not on any anticoagulation Full code VTE prophylaxis: Lovenox Patient with acute hypoxic respiratory and sepsis secondary to community-acquired pneumonia versus suspected aspiration pneumonia, requiring admission for at least 2 midnights stay for IV antibiotics and monitoring. Quality Stroke Does the patient have a stroke diagnosis?: No VTE Prior VTE?: No VTE Risk Level:: Medical - moderate - high VTE Device Contraindication: Treatment Not Indicated VTE Drug Contraindication: N/A - Med Ordered
[2024-07-30] MEDS: cefTRIAXone sodium 1 GM VIAL IVPUSH (21:05)
[2024-07-30] MEDS: 0.9 % Sodium Chloride 1,000 ML 999 ML IV (21:06)
[2024-07-30] MEDS: Morphine Sulfate 4 MG/ML CARTRIDGE IVPUSH (21:06)
[2024-07-30] MEDS: Azithromycin 500 MG in 0.9 % Sodium Chloride 250 ML 125 MG IV (21:09)
[2024-07-30] MEDS: Enoxaparin Sodium 40 MG/0.4 ML SYRINGE SUBCUT (21:10)
[2024-07-30 21:18] VITALS: BP 107/60; PULSE 69; RESP 19; TEMP 36.7; O2SAT 97
[2024-07-30 21:27] LABS: Lactic Acid 0.6 mmol/L (0.5-2.0)
[2024-07-30 21:34] LABS: Troponin-I High Sensitivity 38.5 ng/L (<3.5-35.0)
--- NOTE | 2024-07-30 22:00 | PC.NURSE ---
This repairer typewriter assumed care of this Pt at 1900. Pt A&Ox3, reports effectiveness of meds given for headache. Pt ambulated independently with steady gait to BR.
[2024-07-30] MEDS: Ampicillin Sodium/Sulbactam Na 3 GM in 0.9 % Sodium Chloride 100 ML IV (23:56)
[2024-07-30] MEDS: 0.9 % Sodium Chloride Flush 3 ML SYRINGE IVFLUSH (23:57)
[2024-07-31] VITALS (12 sets, daily range): BP systolic 110–143; BP diastolic 57–74; PULSE 71–99; RESP 16–22; TEMP 36.1–39.4; O2SAT 93–100; BMI 32.2
--- NOTE | 2024-07-31 00:10 | PC.NURSE ---
Pt appeared to be sleeping at this time, destated to 84% on 4L via NC, switched over to oxymask with improvement at 4L.
[2024-07-31] MEDS: Ampicillin Sodium/Sulbactam Na 3 GM in 0.9 % Sodium Chloride 100 ML IV ×4 (04:00→21:07)
[2024-07-31 05:34] LABS: Basophils Percent Auto 0.5 % (0-2); Eosinophils Absolute Auto 0.1 X10*3/uL (0.0-0.4); Eosinophils Percent Auto 1.3 % (0-4); Hematocrit 35.9 % (42.0-52.0); Hemoglobin 11.9 g/dl (14.0-18.0); Imm Gran Abs Auto 0.02 X10*3/uL (0.00-0.03); Imm Gran Pct Auto 0.2 % (0.0-0.4); Lymphocytes Absolute Auto 1.7 X10*3/uL (1.2-4.9); Lymphocytes Percent Auto 20.4 % (20-40); MANUAL DIFF FLAG NO; Mean Corpuscular HGB Conc 33.1 g/dl (31.0-36.0); Mean Corpuscular Hemoglobin 30.2 pg (27.0-33.0); Mean Corpuscular Volume 91.1 fL (80.0-98.0); Mean Platelet Volume 8.2 fL (9.4-12.4); Monocytes Absolute Auto 1.1 X10*3/uL (0.1-1.2); Monocytes Percent Auto 12.7 % (2-11); Neutrophils Absolute Auto 5.4 x10*3/uL (2.0-8.3); Neutrophils Percent Auto 64.9 % (45-73); Platelet Count 191 X10*3/uL (160-400); Red Blood Count 3.94 X10*6/uL (4.60-5.80); Red Cell Distribution Width 15.1 % (11.0-16.0); White Blood Count 8.4 X10*3/uL (4.8-10.8)
[2024-07-31 05:48] LABS: Anion Gap 11 (12-20); Blood Urea Nitrogen 13 mg/dL (9-16); Calcium 8.1 mg/dL (8.4-10.2); Carbon Dioxide 26 mmol/L (22-29); Chloride 104 mmol/L (96-108); Creatinine Clr Calc Pharmacy 99.6; Estimated Glomerular Filt Rate > 60; Glucose Random 81 mg/dL (60-115); Sodium 137 mmol/L (135-145)
[2024-07-31] MEDS: Acetaminophen 325 MG TABLET 650 MG PO ×2 (06:21→14:00)
--- NOTE | 2024-07-31 06:30 | PC.NURSE ---
Pt febrile, medicated per MAR.
--- NOTE | 2024-07-31 10:58 | PHA.MEDREC ---
Pharmacy Consult ? Medication Reconciliation Pharmacy has completed the medication reconciliation. [place] [facility] [place] all of [place] medicaitons. contacted med rec complete
--- NOTE | 2024-07-31 11:31 | P.PNIM_ITS ---
Subjective Subjective Date of Service: 07/31/24 Interval History: Doesn't feel good, desat very easily,some cough Physical Exam 2 Vital Signs: Vital Signs: Last Vital Signs Temp 100.4 F 07/31/24 09:30 Pulse 89 07/31/24 09:30 Resp 16 07/31/24 09:30 BP 119/57 L 07/31/24 09:30 Pulse Ox 97 07/31/24 09:30 O2 Del Method Oxymask 07/31/24 09:30 O2 Flow Rate 1 07/31/24 09:30 BMI result Body Mass Index 32.2 General: AO X 3, no acute distress Resp: CTA bilateral CVS: S1,S2,RRR GI: +BS, NT, no distention Skin: No rash Neuro: motor grossly intact Psych: appropriate affect Objective Data Active Medications Acetaminophen (Acetaminophen 325 Mg Tablet) 650 mg PO Q6H PRN PRN Reason: Pain, Mild 1-3,fever,headache Last Admin: 07/31/24 06:21 Dose: 650 mg Documented By: PEARL Ascorbic Acid (Ascorbic Acid 500 Mg Tablet) 1,000 mg PO DAILY [facility] Atorvastatin Calcium (Atorvastatin Calcium 10 Mg Tablet) 10 mg PO BEDTIME [facility] Calcium Carbonate (Calcium Carbonate 750 Mg Tab.Chew) 750 mg PO Q4H PRN PRN Reason: Heartburn Diphenhydramine HCl (Diphenhydramine Hcl 25 Mg Capsule) 25 mg PO BID PRN PRN Reason: Rash Enalapril Maleate (Enalapril Maleate 10 Mg Tablet) 10 mg PO DAILY [facility]; Protocol Enoxaparin Sodium (Enoxaparin Sodium 40 Mg/0.4 Ml Syringe) 40 mg SUBCUT Q24H [facility] Last Admin: 07/30/24 21:10 Dose: 40 mg Documented By: PEARL Hydrochlorothiazide (Hydrochlorothiazide 12.5 Mg Tablet) 12.5 mg PO DAILY [facility]; Protocol Ampicillin Sodium/Sulbactam (Sodium 3 gm/ Sodium Chloride) 100 mls @ 200 mls/hr IV Q6H [facility] Last Infusion: 07/31/24 04:33 Dose: Infused Documented By: PEARL Magnesium Hydroxide (Milk Of Magnesia 30 Ml Oral.Susp) 30 ml PO DAILY PRN PRN Reason: Constipation Melatonin (Melatonin 3 Mg Tablet) 6 mg PO BEDTIME PRN PRN Reason: Insomnia Multivitamins/Vitamin C (Multivitamin Tablet) 1 tab PO DAILY [facility] Ondansetron HCl (Ondansetron Hcl 4 Mg/2 Ml Vial) 4 mg IVPUSH Q8H PRN PRN Reason: Nausea and Vomiting Psyllium Hydrophilic Mucilloid (Psyllium Seed 3.7 Gm Packet) 3.7 gm PO BEDTIME [facility] Sodium Chloride (0.9 % Sodium Chloride Flush 3 Ml Syringe) 3 ml IVFLUSH QSHIFT [facility] Last Admin: 07/31/24 07:14 Dose: Not Given Documented By: FABIOLA Non-Admin Reason: Previously Administered Labs 07/31/24 05:29 07/31/24 05:29 Labs: Laboratory Results - last 24 hr 07/30/24 07/30/24 07/30/24 17:47 17:50 21:04 MCV 89.2 MCH 30.2 MCHC 33.8 RDW 14.9 Plt Count 232 MPV 8.0 L Immature Gran % (Auto) 0.4 Neut % (Auto) 64.0 Lymph % (Auto) 23.5 [place] % (Auto) 10.8 Eos % (Auto) 0.9 Baso % (Auto) 0.4 Lymph # (Auto) 1.9 [place] # (Auto) 0.9 Eos # (Auto) 0.1 Baso # (Auto) 0.0 Abs Immat Gran (auto) 0.03 Absolute Neuts (auto) 5.3 Absolute Nucleated RBC 0.000 Nucleated RBC % (auto) 0.0 APTT 33.4 VBG pH 7.41 VBG pCO2 51 VBG pO2 36 VBG HCO3 32 H VBG O2 Saturation 57.0 VBG Base Excess 6.8 Anion Gap 15 Estim Creat Clear Calc 83.0 Estimated GFR > 60 Random Glucose 81 Lactic Acid 0.8 0.6 Calcium 9.0 D Magnesium 1.9 Total Bilirubin 0.9 AST 53 H ALT 56 H Alkaline Phosphatase 64 Total Creatine Kinase 109 B-Natriuretic Peptide 26 Total Protein 7.7 Albumin 4.2 Lipase 22 Influenza Type A (PCR) NEGATIVE Influenza Type B (PCR) NEGATIVE RSV RNA Qual (PCR) NEGATIVE SARS-CoV-2 RNA (RT-PCR) NEGATIVE 07/31/24 05:29 MCV 91.1 MCH 30.2 MCHC 33.1 RDW 15.1 Plt Count 191 MPV 8.2 L Immature Gran % (Auto) 0.2 Neut % (Auto) 64.9 Lymph % (Auto) 20.4 [place] % (Auto) 12.7 H Eos % (Auto) 1.3 Baso % (Auto) 0.5 Lymph # (Auto) 1.7 [place] # (Auto) 1.1 Eos # (Auto) 0.1 Baso # (Auto) 0.0 Abs Immat Gran (auto) 0.02 Absolute Neuts (auto) 5.4 Absolute Nucleated RBC 0.000 Nucleated RBC % (auto) 0.0 APTT VBG pH VBG pCO2 VBG pO2 VBG HCO3 VBG O2 Saturation VBG Base Excess Anion Gap 11 L Estim Creat Clear Calc 99.6 Estimated GFR > 60 Random Glucose 81 Lactic Acid Calcium 8.1 L D Magnesium Total Bilirubin AST ALT Alkaline Phosphatase Total Creatine Kinase B-Natriuretic Peptide Total Protein Albumin Lipase Influenza Type A (PCR) Influenza Type B (PCR) RSV RNA Qual (PCR) SARS-CoV-2 RNA (RT-PCR) Assessment and Plan (1) Pneumonia: Status: Acute (2) Hypoxia: Status: Acute (3) Acute respiratory failure with hypoxia: Status: Acute (4) CAP (community acquired pneumonia): Status: Acute Plan 68-year-old male with a past medical history significant for prostate cancer s/p radical prostatectomy, nephrolithiasis, OA, HLD, HTN, metastatic melanoma (L groin) receiving chemotherapy with Dr. Smalls, history DVT and recent admission in May for aseptic meningitis, presents vomiting and headache. Acute hypoxic respiratory failure and sepsis secondary to community-acquired pneumonia, suspect aspiration pneumonia due to patient vomiting - WBC normal, tachypneic and fever of 102.8, lactic acid pending, blood cultures x2 pending, not severe sepsis - new hypoxia, improvement with supplementation via NC - chest CTA to rule out PE negative for PE however did show possible bilateral pneumonia - EKG negative - BNP normal - COVID/flu/RSV negative - given ceftriaxone and azithromycin for community-acquired pneumonia in ED, however witched to Unasyn due to suspected aspiration pneumonia as patient woke in the middle of the night due to vomiting - headache improved with Toradol, Benadryl, Reglan and morphine, no nuchal rigidity or photosensitivity therefore LP was deferred, patient aware of any change in symptoms he will alert us and LP will be considered at that time - monitor CBC and BMP HLD - continue home meds HTN - continue home meds Prostate cancer - s/p radical prostatectomy Metastatic melanoma - followed by Dr. Smalls receiving chemotherapy History DVT - not on any anticoagulation Full code VTE prophylaxis: Lovenox Patient with acute hypoxic respiratory and sepsis secondary to community- acquired pneumonia versus suspected aspiration pneumonia, requiring admission for at least 2 midnights stay for IV antibiotics and monitoring. Quality Stroke Does the patient have a stroke diagnosis?: No VTE Prior VTE?: No VTE Risk Level:: Medical - moderate - high VTE Device Contraindication: Treatment Not Indicated VTE Drug Contraindication: N/A - Med Ordered
[2024-07-31] MEDS: Ascorbic Acid 500 MG TABLET 1000 MG PO (11:45)
--- NOTE | 2024-07-31 12:16 | MHC.CM.PN ---
PT REPORTS HE LIVES ALONE AND IS INDEPENDENT WITH CARE HE HAS NO DME AND NO SERVICES HCP ON FILE PCP: [facility] DELIVERED PTS PREFERRED DCP: HOME NO SERVICES VIA PRIVATE TRANSPORT
[2024-07-31 16:08] LABS: Appearance Urine Clear; Color Urine Dark Yellow; Glucose Urine UA Negative (Negative); Leukocyte Esterase Urine Negative (Negative); Nitrite Urine Negative (Negative); PH 5.5 (5.0-9.0); Specific Gravity - Urine >= 1.030 (1.005-1.025); UMIC TRIGGER UACC YES; Urine Blood Negative (Negative); Urine Ketones Trace mg/dL (Negative); Urine Protein 30 (1+) mg/dL (Neg-Trace)
[2024-07-31] MEDS: Ibuprofen 600 MG TABLET PO (16:32)
[2024-07-31] MEDS: 0.9 % Sodium Chloride Flush 3 ML SYRINGE IVFLUSH ×2 (16:36→21:13)
[2024-07-31 16:58] LABS: Bacteria Urine None Seen (None Seen); Hyaline Casts Urine 0-2 /LPF (0-2); RBC Urine 0-2 /HPF (0-2); Squamous Epithelial Cell Urine 0-2 /HPF (0-2); WBC Urine 0-5 /HPF (0-5)
--- NOTE | 2024-07-31 17:19 | MHC.SLORD ---
Speech Language Pathology Order Status: Pt on regular diet with thin liquids, RN and MD consulted. Pt tolerating PO without overt s/s of aspiration, taking meds whole with liquids. Clinical swallow evaluation no longer indicated.
[2024-07-31] MEDS: Atorvastatin Calcium 10 MG TABLET PO (21:07)
[2024-07-31] MEDS: Psyllium seed 3.7 GM PACKET PO (21:07)
[2024-07-31] MEDS: Enoxaparin Sodium 40 MG/0.4 ML SYRINGE SUBCUT (21:07)
[2024-08-01] VITALS (12 sets, daily range): BP systolic 95–133; BP diastolic 55–76; PULSE 74–133; RESP 16–24; TEMP 36.4–38.5; O2SAT 94–100
[2024-08-01] MEDS: Ampicillin Sodium/Sulbactam Na 3 GM in 0.9 % Sodium Chloride 100 ML IV ×2 (03:22→08:55)
[2024-08-01] MEDS: Acetaminophen 325 MG TABLET 650 MG PO ×3 (04:00→20:02)
[2024-08-01] MEDS: Morphine Sulfate 2 MG/ML CARTRIDGE IVPUSH (04:41)
--- NOTE | 2024-08-01 04:45 | ECG_ITS ---
Test Reason : weakness Blood Pressure : */* mmHG Vent. Rate : 135 BPM Atrial Rate : 243 BPM P-R Int : * ms QRS Dur : 76 ms QT Int : 286 ms P-R-T Axes : 74 7 154 degrees QTcB Int : 429 ms Atrial flutter with variable A-V block Nonspecific ST and T wave abnormality Abnormal ECG When compared with ECG of 30-Jul-2024 19:07, Atrial flutter has replaced Sinus rhythm Vent. rate has increased by 48 bpm Referred By: Eros Dover Electronically Signed By: HAILEY MILIAN
[2024-08-01] MEDS: ondansetron HCL 4 MG/2 ML VIAL IVPUSH (04:48)
--- NOTE | 2024-08-01 05:09 | PM.EVENT ---
Event Note Date of Service: 08/01/24 Event Note: Patient with heart rate sustaining in the 130s. Irregularly irregular. Obtaining EKG Time Spent With Patient Time: Total time managing care of this patient today ____ minutes.
[2024-08-01] MEDS: dilTIAZem HCL 50 MG/10 ML VIAL 10 MG IVPUSH (05:12)
--- NOTE | 2024-08-01 08:07 | CA_ITS ---
Transthoracic Echocardiogram Patient (Last, First, Middle): Jesús Vera E Gender: Male Date of : 1955 Age: 68 Procedure Date: 08/01/2024 Procedure Type: Transthoracic Echocardiogram [place] [facility] [place] Height: 175.26 cm Weight: 98.88 kg BSA: 2.14 m2 Heart Rate: 96 bpm BP: 133 / 71 mmHg Seo Consultant: Referring MD: Girma Marks MD Symptoms: afib Study Quality: Adequate ECG Rhythm: Sinus Conclusions: - The left ventricular systolic function is hyperdynamic. The visually estimated ejection fraction is >70%. - No obvious valvular pathology seen on this study. - Mild pulmonary hypertension is present. Findings Left Ventricle Normal left ventricular cavity size. There is mildly increased left ventricular wall thickness. The left ventricular systolic function is hyperdynamic. The visually estimated ejection fraction is >70%. Diastolic function is normal for age. Right Ventricle Normal right ventricular cavity size and systolic function. Atria Both atria are normal in size. Aortic Valve There is a normal trileaflet aortic valve. There is no aortic valve stenosis. There is no aortic valve regurgitation. Mitral Valve The mitral valve appears normal. There is no mitral valve regurgitation. There is no mitral valve stenosis. Pulmonic Valve The pulmonic valve is likely normal. Tricuspid Valve There is mild tricuspid valve regurgitation. Mild pulmonary hypertension is present. Great Vessels The asc aorta is normal in size. Venous The inferior vena cava is normal in size and collapses greater than 50% with inspiration. Pericardium/Pleural Trace pericardial effusion seen over the left ventricle. Prior Study Comparison No prior study available for comparison. Recommendations, Care & Conclusions No obvious valvular pathology seen on this study. Measurements 2D Linear Measurements IVSd: 1.09 0.6-0.9/0.6-1.0 cm LVIDd: 4.53 3.9-5.3/4.2-5.9 cm LVIDd Index: 2.12 2.4-3.2/2.2-3.1 cm/m2 LVIDs: 2.96 2.0-3.6 cm LVPWd: 1.09 0.7-1.1 cm Ao Root: 3.30 2.1-3.5 cm LA Diam: 3.40 2.7-3.8/3.0-4.0 cm LAIDs Index: 1.59 1.5-2.3 cm/m2 LV Mass: 217.52 67-162/88-224 g LV Mass Index: 101.64 43-95/49-115 g/m2 LVOT Diam: 2.20 3.0+(-)1.3 cm 2D Systolic Function EF 4C: 75.00 >55% EF 2C: 64.50 >55% EF BiP: 69.00 >55% Mitral Valve MV Pk E: 1.04 MV PK A: 0.84 MV Decel Time: 191.00 E/A: 1.20 E'Lateral: 11.70 E'Medial: 8.38 E/E' Med: 12.40 E/E' Lat: 8.90 PHT: 56.00 MVA PHT: 3.93 Decel [place]: 5.46 Aortic Valve AoV Pk Hussein: 2.15 AoV Mn Hussein: 1.38 AoV VTI: 0.37 AoV Pk Grad: 18.00 Aov Mn Grad: 10.00 HUGO Cont.VTI: 2.35 LVOT LVOT Pk Hussein: 1.19 LVOT Mn Hussein: 0.81 LVOT VTI: 0.23 LVOT Pk Grad: 6.00 LVOT Mn Grad: 4.00 LVOT Diam: 2.20 LVOT Area: 3.80 Diastolic Function MV Pk E: 1.04 MV Pk A: 0.84 E/A: 1.20 E'Medial: 8.38 E/E' Med: 12.40 E' Laterial: 11.70 E/E' Lat: 8.90 Right Ventricle TAPSE (mm): 31.00 TVS' Hussein: 19.00 Tricuspid Valve TR Pk Hussein: 3.12 TR Pk Grad: 39.00 RA Press: 3.00 RVSP: 42.00 Great Vessels Aorta Ao Root-2D: 3.30 2.0-3.7 cm Ao Asc: 3.10 2.1-3.4 cm Pulmonary Valve PV Pk Hussein: 1.22 Peak PV Grad: 6.00 Updated in Other Vendor System with Status of Final Joseph Boston MD electronically signed on 08/01/2024 11:05:58 AM with status of Final
[2024-08-01] MEDS: Ascorbic Acid 500 MG TABLET 1000 MG PO (08:50)
[2024-08-01] MEDS: Enalapril Maleate 10 MG TABLET PO (08:50)
[2024-08-01] MEDS: hydroCHLOROthiazide 12.5 MG TABLET PO (08:51)
[2024-08-01] MEDS: Multivitamin TABLET 1 TAB PO (08:51)
[2024-08-01] MEDS: 0.9 % Sodium Chloride Flush 3 ML SYRINGE IVFLUSH (08:56)
--- NOTE | 2024-08-01 09:28 | PM.CNCAR ---
History of Present Illness History of Present Illness Date of Service: 08/01/24 Chief complaint: Fever Narrative: This is a cardiology consultation regarding atrial flutter. Many comorbidities as listed including prostate cancer status post prostatectomy, hypertension, high lipids, malignant melanoma received chemotherapy, DVT, aseptic meningitis. Currently, admitted for diagnosis of respiratory failure, sepsis, community-acquired pneumonia. In this context, it seems that he had run of tachycardia last night thought to be atrial flutter. Lasted for about 3 hours or so. Patient himself denies any prior cardiac history. Denies any prior coronary disease or myocardial infarction or cardiomyopathy. Otherwise, denies any symptoms like angina or shortness of breath or in fact anything cardiac sounding. He states that he just does not feel well overall but no clear-cut cardiac symptoms. Review of Systems Review of Systems: Yes all other systems are reviewed and are negative Constitutional: Constitutional: Reports as per HPI, Reports no additional constitutional complaints, Reports fatigue, Reports malaise and Reports weakness Eyes: Eyes: Reports as per HPI and Denies no additional eye complaints ENT: Denies system reviewed and no additional complaints, except as documented and Reports as per HPI Cardiovascular: Cardiovascular: Reports as per HPI, Reports no additional cardiovascular complaints, Denies acrocyanosis, Denies cool extremities, Denies chest pain, Denies leg edema, Denies lightheadedness, Denies palpitations and Denies dyspnea Respiratory: Respiratory: Reports as per HPI, Denies no additional respiratory complaints and Denies dyspnea Gastrointestinal: Gastrointestinal: Reports as per HPI and Denies no additional gastrointestinal complaints Genitourinary: Genitourinary: Reports no additional male genitourinary complaints and Reports as per HPI Musculoskeletal: Musculoskeletal: Reports no additional musculoskeletal complaints and Reports as per HPI Integumentary/Breasts: Skin/Breast: Reports system reviewed and no additional complaints, except as docu Neurologic: Reports system reviewed and no additional complaints, except as documented, Reports as per HPI and Reports weakness Psychiatric: Psychiatric: Reports no additional psychiatric complaints and Reports as per HPI Endocrine: Endocrine: Reports no additional endocrine complaints, Reports as per HPI, Reports fatigue and Denies palpitations Hematologic/Lymphatic: Hematologic/Lymphatic: Reports no additional hematologic/lymphatic complaints and Reports as per HPI Allergic/Immunologic: Allergic/Immunologic: Reports no additional allergic/immunologic complaints and Reports as per HPI [facility] Past Medical History Medical History PSA elevation Overweight (BMI 25.0-29.9) Finger fracture, right Nephrolithiasis Osteoarthritis Hypercholesterolemia Hypertension Family History Family History Mother Bladder cancer Father Prostate cancer Surgical History Surgical History History of tonsillectomy Social History Social History Household Members: None Housing: House Do you presently have visiting nurse or other home services: No Alcohol intake: former Patient Tobacco Use Status: Never used Tobacco e-Cigarette/Vaping Use: Never Used Second Hand Smoke Exposure: No Advance Directives Date on File: 09/22/22 service: No Current occupational status: employed Sexual orientation: Straight/Heterosexual Gender identity: Male Cognitive needs: No Hearing needs: No Vision needs: Yes Meds Allergies Allergy/AdvReac Type Severity Reaction Status Date / Time No Known Allergies Allergy Verified 07/30/24 17:16 Active Medications: Current Medications Acetaminophen (Acetaminophen 325 Mg Tablet) 650 mg PO Q6H PRN PRN Reason: Pain, Mild 1-3,fever,headache Last Admin: 08/01/24 04:00 Dose: 650 mg Ascorbic Acid (Ascorbic Acid 500 Mg Tablet) 1,000 mg PO DAILY ZACHARY Last Admin: 08/01/24 08:50 Dose: 1,000 mg Atorvastatin Calcium (Atorvastatin Calcium 10 Mg Tablet) 10 mg PO BEDTIME ZACHARY Last Admin: 07/31/24 21:07 Dose: 10 mg Calcium Carbonate (Calcium Carbonate 750 Mg Tab.Chew) 750 mg PO Q4H PRN PRN Reason: Heartburn Diphenhydramine HCl (Diphenhydramine Hcl 25 Mg Capsule) 25 mg PO BID PRN PRN Reason: Rash Enalapril Maleate (Enalapril Maleate 10 Mg Tablet) 10 mg PO DAILY ZACHARY; Protocol Last Admin: 08/01/24 08:50 Dose: 10 mg Enoxaparin Sodium (Enoxaparin Sodium 40 Mg/0.4 Ml Syringe) 40 mg SUBCUT Q24H ZACHARY Last Admin: 07/31/24 21:07 Dose: 40 mg Hydrochlorothiazide (Hydrochlorothiazide 12.5 Mg Tablet) 12.5 mg PO DAILY ZACHARY; Protocol Last Admin: 08/01/24 08:51 Dose: 12.5 mg Ampicillin Sodium/Sulbactam (Sodium 3 gm/ Sodium Chloride) 100 mls @ 200 mls/hr IV Q6H [facility] Last Admin: 08/01/24 08:55 Dose: 200 mls/hr Ibuprofen (Ibuprofen 600 Mg Tablet) 600 mg PO Q6H PRN PRN Reason: Fever >101 Last Admin: 07/31/24 16:32 Dose: 600 mg Magnesium Hydroxide (Milk Of Magnesia 30 Ml Oral.Susp) 30 ml PO DAILY PRN PRN Reason: Constipation Melatonin (Melatonin 3 Mg Tablet) 6 mg PO BEDTIME PRN PRN Reason: Insomnia Multivitamins/Vitamin C (Multivitamin Tablet) 1 tab PO DAILY [facility] Last Admin: 08/01/24 08:51 Dose: 1 tab Ondansetron HCl (Ondansetron Hcl 4 Mg/2 Ml Vial) 4 mg IVPUSH Q8H PRN PRN Reason: Nausea and Vomiting Last Admin: 08/01/24 04:48 Dose: 4 mg Psyllium Hydrophilic Mucilloid (Psyllium Seed 3.7 Gm Packet) 3.7 gm PO BEDTIME [facility] Last Admin: 07/31/24 21:07 Dose: 3.7 gm Sodium Chloride (0.9 % Sodium Chloride Flush 3 Ml Syringe) [facility] Last Admin: 08/01/24 08:56 Dose: 3 ml Home Medications ?Medication ?Instructions ?Recorded ?Confirmed ?Last Taken ?Type ascorbic acid (vitamin C) 1,000 mg 1 g PO DAILY 05/21/20 07/31/24 07/29/24 History tablet multivitamin-ferrous 1 tab PO DAILY 05/21/20 07/31/24 07/29/24 History fumarate-folic acid 18 mg-400 mcg tablet (Centrum) omega-3 fatty acids 1,000 mg 1,000 mg PO DAILY 05/21/20 07/31/24 07/29/24 History capsule acetaminophen 500 mg tablet 1,000 mg PO Q6H PRN Headache 05/26/24 07/31/24 Unknown History (Acetaminophen Extra Strength) diphenhydramine HCl 25 mg tablet 25 mg PO BID PRN Rash 05/27/24 07/31/24 Unknown History (Benadryl Allergy) [id number] 250 1 tab PO Q4-6H PRN Headache 07/31/24 07/31/24 07/29/24 History mg-250 mg-65 mg tablet (Excedrin Migraine) psyllium husk 0.4 gram capsule 0.4 g PO BEDTIME 07/31/24 07/31/24 07/29/24 History (Fiber (psyllium husk)) Physical Exam Vital Signs: Vital Signs: Last Vital Signs Temp 100.5 F H 08/01/24 09:12 Pulse 86 08/01/24 07:40 Resp 20 08/01/24 07:40 BP 133/71 08/01/24 07:40 Pulse Ox 94 08/01/24 07:40 O2 Del Method Nasal Cannula 08/01/24 07:40 O2 Flow Rate 3 08/01/24 07:40 BMI result Body Mass Index 32.2 Const: General: comfortable and no acute distress Orientation/consciousness: patient oriented x3 HEENT: Other: Unremarkable Head: Yes normal to inspection Neck: Neck: Yes normal visual inspection Chest: Chest palpation & inspection: normal inspection of the chest Resp: Auscultation: clear to auscultation bilaterally Cardio: Palpation: normal PMI Heart sounds: S1 normal heart sound present, S2 normal heart sound present, no gallops, no murmurs and no rubs GI: Palpation (GI): Soft to palpation Back/Spine/Pelvis: Other: unremarkable Skin: General skin exam: no rashes or lesions noted Neuro: General: patient oriented x3 Extrem: General: Yes normal to inspection Psych: Mental Status: mental status grossly normal Objective Labs and Meds 07/31/24 05:29 07/31/24 05:29 Lab results: Laboratory Results - last 24 hr 07/31/24 15:45 Urine Color Dark Yellow Urine Appearance Clear Urine pH 5.5 Ur Specific [place] >= 1.030 H Urine Protein 30 (1+) H Urine Glucose (UA) Negative Urine Ketones Trace Urine Blood Negative Urine Nitrite Negative Ur Leukocyte Esterase Negative Urine RBC 0-2 Urine WBC 0-5 Ur Squamous Epith Cells 0-2 Urine Bacteria None Seen Hyaline Casts 0-2 ECG Interpretation: EKG during the tachyarrhythmia with atrial flutter at a rate of 135/Min. Currently, in sinus rhythm. Previous EKG from time of admission shows sinus rhythm at 87/Min. Nonspecific ST-T changes. Assessment and Plan (1) Atrial flutter with rapid ventricular response: Status: Acute Plan Telemetry/EKGs suggestive of atrial flutter with rapid rate. However, duration is quite short just about 3 hours or so. Borderline increase in high sensitivity troponins. Cardiac BNP is 26. We will obtain echocardiogram for cardiac function. Can try a small dose of beta-blockers for the time being. May hold enalapril to avoid hypotension. As the duration of the arrhythmias quite short, can hold off on anticoagulation at this time. If recurring episodes, we will readdress. We will follow up with you. Discussed with Dr. Marks. Procedures Date of Service Date of Service: 08/01/24
--- NOTE | 2024-08-01 09:41 | P.PNIM_ITS ---
Subjective Subjective Date of Service: 08/01/24 Interval History: Had episode of aflutter lasting about 3 hours overnight, and self terminating. He is stiill feeling ill with respiratory symptoms and fever, and some headache Physical Exam 2 Vital Signs: Vital Signs: Last Vital Signs Temp 100.5 F H 08/01/24 09:12 Pulse 86 08/01/24 07:40 Resp 20 08/01/24 07:40 BP 133/71 08/01/24 07:40 Pulse Ox 94 08/01/24 07:40 O2 Del Method Nasal Cannula 08/01/24 07:40 O2 Flow Rate 3 08/01/24 07:40 BMI result Body Mass Index 32.2 Const: Other: General: AO X 3, no acute distress Resp: cecile rhonchi CVS: S1,S2,RRR GI: +BS, NT, no distention Skin: No rash Neuro: motor grossly intact Psych: appropriate affect Objective Data Active Medications Acetaminophen (Acetaminophen 325 Mg Tablet) 650 mg PO Q6H PRN PRN Reason: Pain, Mild 1-3,fever,headache Last Admin: 08/01/24 04:00 Dose: 650 mg Documented By: ALFONSO Ascorbic Acid (Ascorbic Acid 500 Mg Tablet) 1,000 mg PO DAILY ZACHARY Last Admin: 08/01/24 08:50 Dose: 1,000 mg Documented By: LEONOR Atorvastatin Calcium (Atorvastatin Calcium 10 Mg Tablet) 10 mg PO BEDTIME [facility] Last Admin: 07/31/24 21:07 Dose: 10 mg Documented By: ALFONSO Calcium Carbonate (Calcium Carbonate 750 Mg Tab.Chew) 750 mg PO Q4H PRN PRN Reason: Heartburn Diphenhydramine HCl (Diphenhydramine Hcl 25 Mg Capsule) 25 mg PO BID PRN PRN Reason: Rash Enalapril Maleate (Enalapril Maleate 10 Mg Tablet) 10 mg PO DAILY [facility]; Protocol Last Admin: 08/01/24 08:50 Dose: 10 mg Documented By: LEONOR Enoxaparin Sodium (Enoxaparin Sodium 40 Mg/0.4 Ml Syringe) 40 mg SUBCUT Q24H ZACHARY Last Admin: 07/31/24 21:07 Dose: 40 mg Documented By: ALFONSO Hydrochlorothiazide (Hydrochlorothiazide 12.5 Mg Tablet) 12.5 mg PO DAILY [facility]; Protocol Last Admin: 08/01/24 08:51 Dose: 12.5 mg Documented By: LEONOR Ampicillin Sodium/Sulbactam (Sodium 3 gm/ Sodium Chloride) 100 mls @ 200 mls/hr IV Q6H [facility] Last Admin: 08/01/24 08:55 Dose: 200 mls/hr Documented By: LEONOR Ibuprofen (Ibuprofen 600 Mg Tablet) 600 mg PO Q6H PRN PRN Reason: Fever >101 Last Admin: 07/31/24 16:32 Dose: 600 mg Documented By: MARYLU Magnesium Hydroxide (Milk Of Magnesia 30 Ml Oral.Susp) 30 ml PO DAILY PRN PRN Reason: Constipation Melatonin (Melatonin 3 Mg Tablet) 6 mg PO BEDTIME PRN PRN Reason: Insomnia Multivitamins/Vitamin C (Multivitamin Tablet) 1 tab PO DAILY [facility] Last Admin: 08/01/24 08:51 Dose: 1 tab Documented By: LEONOR Ondansetron HCl (Ondansetron Hcl 4 Mg/2 Ml Vial) 4 mg IVPUSH Q8H PRN PRN Reason: Nausea and Vomiting Last Admin: 08/01/24 04:48 Dose: 4 mg Documented By: ALFONSO Psyllium Hydrophilic Mucilloid (Psyllium Seed 3.7 Gm Packet) 3.7 gm PO BEDTIME [facility] Last Admin: 07/31/24 21:07 Dose: 3.7 gm Documented By: ALFONSO Sodium Chloride (0.9 % Sodium Chloride Flush 3 Ml Syringe) 3 ml IVFLUSH QSHIFT [facility] Last Admin: 08/01/24 08:56 Dose: 3 ml Documented By: LEONOR Labs 08/01/24 15:18 08/01/24 15:18 Labs: Laboratory Results - last 24 hr 07/31/24 15:45 Urine Color Dark Yellow Urine Appearance Clear Urine pH 5.5 Ur Specific [place] >= 1.030 H Urine Protein 30 (1+) H Urine Glucose (UA) Negative Urine Ketones Trace Urine Blood Negative Urine Nitrite Negative Ur Leukocyte Esterase Negative Urine RBC 0-2 Urine WBC 0-5 Ur Squamous Epith Cells 0-2 Urine Bacteria None Seen Hyaline Casts 0-2 Microbiology Microbiology Results: Microbiology 07/30/24 18:07 Blood Culture - Preliminary Blood - Venous No growth after 24 hours. 07/30/24 17:47 Blood Culture - Preliminary Blood - Venous No growth after 24 hours. Assessment and Plan (1) Pneumonia: Status: Acute (2) Hypoxia: Status: Acute (3) Acute respiratory failure with hypoxia: Status: Acute (4) CAP (community acquired pneumonia): Status: Acute Plan 68-year-old male with a past medical history significant for prostate cancer s/p radical prostatectomy, nephrolithiasis, OA, HLD, HTN, metastatic melanoma (L groin) receiving chemotherapy with Dr. Smalls, history DVT and recent admission in May for aseptic meningitis, presents vomiting and headache. Acute hypoxic respiratory failure and sepsis secondary to community-acquired pneumonia, suspect aspiration pneumonia due to patient vomiting Continue Abx, checking respiratory panel, continue O2. Cultures negative Headaches, fever. 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 Smalls receiving immunotherapy, possible complication include asceptic mengingt. History DVT - not on any anticoagulation Full code VTE prophylaxis: Lovenox Quality Stroke Does the patient have a stroke diagnosis?: No VTE Prior VTE?: No VTE Risk Level:: Medical - moderate - high VTE Device Contraindication: Treatment Not Indicated VTE Drug Contraindication: N/A - Med Ordered
[2024-08-01] MEDS: Ketorolac Tromethamine 15 MG/ML VIAL IVPUSH ×3 (09:59→22:24)
[2024-08-01] MEDS: Metoprolol Tartrate 25 MG TABLET PO (11:35)
[2024-08-01 12:49] LABS: Adenovirus PCR Not Detected (Not Detect.); Bordetella parapertussis PCR Not Detected (Not Detect.); Bordetella pertussis PCR Not Detected (Not Detect.); Chlamydia pneumoniae PCR Not Detected (Not Detect.); Coronavirus 229E PCR Not Detected (Not Detect.); Coronavirus HKU1 PCR Not Detected (Not Detect.); Coronavirus NL63 PCR Not Detected (Not Detect.); Coronavirus OC43 PCR Not Detected (Not Detect.); Human metapneumovirus PCR Not Detected (Not Detect.); Influenza A PCR Not Detected (Not Detect.); Influenza B PCR Not Detected (Not Detect.); Mycoplasma pneumoniae PCR Not Detected (Not Detect.); Parainfluenza 1 PCR Not Detected (Not Detect.); Parainfluenza 2 PCR Not Detected (Not Detect.); Parainfluenza 3 PCR Not Detected (Not Detect.); Parainfluenza 4 PCR Not Detected (Not Detect.); RSV PCR Not Detected (Not Detect.); Rhino/Enterovirus PCR Not Detected (Not Detect.)
[2024-08-01 13:09] LABS: SARS-CoV-2 PCR Not Detected (Not Detect.)
[2024-08-01 13:18] LABS: MRSA Nasal PCR NEGATIVE (Negative); SA Nasal PCR NEGATIVE (Negative)
--- NOTE | 2024-08-01 14:09 | MHC.CM.PN ---
EMR reviewed and per MD rounds, pt is not medically cleared for discharge due to management of acute hypoxic respiratory and sepsis secondary to community-acquired pneumonia.
[2024-08-01] MEDS: Dextrose 50 % 25 GM/50 ML SYRINGE IVPUSH (15:00)
[2024-08-01 15:07] LABS: Glucose, Whole Blood 79 mg/dL (60-115)
[2024-08-01 15:25] LABS: Hematocrit 28.9 % (42.0-52.0); Hemoglobin 9.6 g/dl (14.0-18.0); Mean Corpuscular HGB Conc 33.2 g/dl (31.0-36.0); Mean Corpuscular Volume 90.3 fL (80.0-98.0); Mean Platelet Volume 8.2 fL (9.4-12.4); Platelet Count 163 X10*3/uL (160-400); Red Cell Distribution Width 14.6 % (11.0-16.0); White Blood Count 6.8 X10*3/uL (4.8-10.8)
[2024-08-01 15:26] LABS: Venous Blood Gas Refer to POC result
[2024-08-01 15:27] LABS: VBG Base Excess 9.2 mmol/L; VBG HCO3 35 mmol/L (22-26); VBG pCO2 59 mmHg; VBG pH 7.38 (7.32-7.43); VBG pO2 35 mmHg
[2024-08-01 15:40] LABS: Anion Gap 10 (12-20); Blood Urea Nitrogen 10 mg/dL (9-16); Calcium 8.1 mg/dL (8.4-10.2); Carbon Dioxide 31 mmol/L (22-29); Chloride 101 mmol/L (96-108); Creatinine Clr Calc Pharmacy 100.1; Estimated Glomerular Filt Rate > 60; Glucose Random 175 mg/dL (60-115); Potassium 3.9 mmol/L (3.3-5.1); Sodium 138 mmol/L (135-145)
[2024-08-01 15:48] LABS: Troponin-I High Sensitivity 5.4 ng/L (<3.5-35.0)
[2024-08-01 15:49] LABS: Glucose, Whole Blood 125 mg/dL (60-115)
[2024-08-01] MEDS: Lactated Ringers 1,000 ML 999 ML IV ×2 (16:00→16:32)
[2024-08-01] MEDS: Hydrocortisone Sod Succ/PF 100 MG VIAL IVPUSH (16:40)
--- NOTE | 2024-08-01 17:03 | P.CNHO_ITS ---
Subjective - Subjective Chief complaint: Headache and nausea/vomiting Patient: known to practice within the last 3 years Consult date: 08/01/24 Primary Care Provider: Raghu Contreras MD Medical Summary: Diagnosis: De bassem metastatic melanoma 02/2024 Past medical history of prostate cancer, status post radical prostatectomy presenting. He was seen by surgeon in December with a 2 month history of right groin mass, he had no symptoms of pain, loss of appetite or weight loss. Pelvic MRI with contrast on 01/31/2024 revealed right inguinal lymphadenopathy measuring up to 3.8 x 4.2 cm with surrounding tissue stranding concerning for metastatic disease. On 02/08/2024 he had biopsy of this mass which revealed metastatic melanoma. Immunostains histochemical stains reactive with [place]-1, HMB45, SOX 1, PRAME. Patient was never treated for melanoma. PET scan performed at [facility] on 03/02/2024 revealed metabolically active retroperitoneal lymph nodes along the aorta with SUV 13.2, FDG avid left common iliac nodes SUV max 15.2, FDG active right external iliac and right inguinal lymph nodes SUV max up to 17.9. FDG avid scattered mediastinal lymph nodes with SUV max up to 4.9. CT chest/abdomen and pelvis revealed bulky right inguinal, right external and internal iliac lymphadenopathy, para-aortic retroperitoneal lymphadenopathy consistent with metastatic adelaida disease. Incompletely imaged bulky right inguinal and femoral lymphadenopathy, largest lymph node measuring 5.9 x 4.2 cm. Bony metastasis in L4, L5, S1 and S2. Fatty infiltration of liver. 1 cm enhancing splenic nodules suspicious. In the chest there were suspicious right upper lobe nodule, mediastinal lymphadenopathy measuring up to 1.7 cm. Brain MRI showed no evidence of metastatic disease. He was started on ipilimumab and nivolumab followed by nivolumab maintenance, in March 2024. Stat right lower extremity Doppler was negative for DVT. Enlarged inguinal lymph nodes seen in the groin measuring up to 7.4 x 5.6 cm which is probably the cause of his right leg swelling. [employer]visor [employer] Utilized?: No - [place]se Speaking HPI - Consult Narrative Reason for consult: History of malignant melanoma, recently diagnosed aseptic meningitis Narrative: Jesús Vera is a 68 year old male with history of DeNovo metastatic melanoma, status post immunotherapy he was admitted for symptoms nausea, emesis and hypoxemia. Patient was admitted in May for aseptic meningitis. He was tapered off a long course of steroids on 07/25/2023. He was doing well when he was seen in Hematology/Oncology Clinic on 07/28/2023. However on Wednesday morning he had mild headache this seemed to have progressed overnight and by Wednesday morning he had thrown up. His brother did not hear from him on Wednesday but apparently the neighbors asked for a well check because patient did not come out to clear the snow. Ambulance was called by the police on Wednesday as patient was confused. As per chart review, patient felt chills but did not actually check his temperature at home. In the emergency room he had a temperature of 102.8 degrees F. blood cultures so far are negative. He had a CT angiogram because of hypoxia, this was negative for PE. He was started on ceftriaxone and azithromycin for presumed pneumonia. Patient continued to feel poorly in the last 2 days. He continues to have fever. COVID/flu/RSV was negative. Today he became hypotensive. Oncology consultation was called for further recommendations. Review of Systems - Constitutional Reports as per HPI - Neurologic Reports system reviewed and no additional complaints, except as documented, Reports as per HPI, Reports headache(s), Reports weakness, Denies confusion, Denies syncope, Denies numbness, Denies tingling PMFSH Medical History: Medical History (Last Reviewed 07/31/24 @ 09:38 by Kathie Reina RN) Finger fracture, right Hypercholesterolemia Hypertension Nephrolithiasis Osteoarthritis Overweight (BMI 25.0-29.9) PSA elevation Functional capacity: independent ambulation Family History: Family History (Last Reviewed 07/28/24 @ 09:17 by Blaine Dee) Mother Bladder cancer Father Prostate cancer Surgical History: Surgical History (Last Reviewed 07/31/24 @ 09:38 by Kathie Reina RN) History of tonsillectomy Social History: Social History (Last Reviewed 07/28/24 @ 09:21 by Blaine Dee) Living Situation History: Household Members: None Housing: House Do you presently have visiting nurse or other home services: No Tobacco History: Patient Tobacco Use Status: Never used Tobacco e-Cigarette/Vaping Use: Never Used Second Hand Smoke Exposure: No Advance Directives: Advance Directives Date on File: 09/22/22 Occupation Assessmet: service: No Current occupational status: employed Sex/Gender Assessment: Sexual orientation: Straight/Heterosexual Gender identity: Male Home Medications and Allergies Current Medications: Current Medications Acetaminophen (Acetaminophen 325 Mg Tablet) 650 mg PO Q6H PRN PRN Reason: Pain, Mild 1-3,fever,headache Last Admin: 08/01/24 11:36 Dose: 650 mg Ascorbic Acid (Ascorbic Acid 500 Mg Tablet) 1,000 mg PO DAILY [facility] Last Admin: 08/01/24 08:50 Dose: 1,000 mg Atorvastatin Calcium (Atorvastatin Calcium 10 Mg Tablet) 10 mg PO BEDTIME [facility] Last Admin: 07/31/24 21:07 Dose: 10 mg Calcium Carbonate (Calcium Carbonate 750 Mg Tab.Chew) 750 mg PO Q4H PRN PRN Reason: Heartburn Ceftriaxone Sodium (Ceftriaxone Sodium 2 Gm Vial) 2 gm IVPUSH Q24H [facility] Diphenhydramine HCl (Diphenhydramine Hcl 25 Mg Capsule) 25 mg PO BID PRN PRN Reason: Rash Enoxaparin Sodium (Enoxaparin Sodium 40 Mg/0.4 Ml Syringe) 40 mg SUBCUT Q24H [facility] Last Admin: 07/31/24 21:07 Dose: 40 mg Hydrocortisone Sodium Succinate (Hydrocortisone Sod Succ/Pf 100 Mg Vial) 100 mg IVPUSH Q8H [facility] Last Admin: 08/01/24 16:40 Dose: 100 mg Lactated Ringer's (Lr) 1,000 mls @ 100 mls/hr IVCONT .Q10H [facility] Vancomycin HCl (Vancomycin/Ns) 2,000 mg in 500 mls @ 250 mls/hr IV ONCE ONE Stop: 08/01/24 17:29 Acyclovir Sodium 820 mg/ (Sodium Chloride) 266.4 mls @ 266.4 mls/hr IV Q8H [facility] Lactated Ringer's (Lr) 1,000 mls @ 999 mls/hr IV .Q1H1M [facility] Stop: 08/01/24 17:15 Last Admin: 08/01/24 16:32 Dose: 999 mls/hr Ketorolac Tromethamine (Ketorolac Tromethamine 15 Mg/Ml Vial) 15 mg IVPUSH Q6H [facility] Stop: 08/02/24 04:01 Last Admin: 08/01/24 09:59 Dose: 15 mg Magnesium Hydroxide (Milk Of Magnesia 30 Ml Oral.Susp) 30 ml PO DAILY PRN PRN Reason: Constipation Melatonin (Melatonin 3 Mg Tablet) 6 mg PO BEDTIME PRN PRN Reason: Insomnia Multivitamins/Vitamin C (Multivitamin Tablet) 1 tab PO DAILY [facility] Last Admin: 08/01/24 08:51 Dose: 1 tab Ondansetron HCl (Ondansetron Hcl 4 Mg/2 Ml Vial) 4 mg IVPUSH Q8H PRN PRN Reason: Nausea and Vomiting Last Admin: 08/01/24 04:48 Dose: 4 mg Pharmacy Consult (Consult Rx Vancomycin Dosing) 1 each MISCELLANE DAILY PRN PRN Reason: Consult order Psyllium Hydrophilic Mucilloid (Psyllium Seed 3.7 Gm Packet) 3.7 gm PO BEDTIME [facility] Last Admin: 07/31/24 21:07 Dose: 3.7 gm Sodium Chloride (0.9 % Sodium Chloride Flush 3 Ml Syringe) 3 ml IVFLUSH QSHIFT [facility] Last Admin: 08/01/24 16:01 Dose: Not Given Home Medications ?Medication ?Instructions ?Recorded ?Confirmed ?Type ascorbic acid (vitamin C) 1,000 mg 1 g PO DAILY 05/21/20 07/31/24 History tablet multivitamin-ferrous 1 tab PO DAILY 05/21/20 07/31/24 History fumarate-folic acid 18 mg-400 mcg tablet (Centrum) omega-3 fatty acids 1,000 mg 1,000 mg PO DAILY 05/21/20 07/31/24 History capsule acetaminophen 500 mg tablet 1,000 mg PO Q6H PRN Headache 05/26/24 07/31/24 History (Acetaminophen Extra Strength) diphenhydramine HCl 25 mg tablet 25 mg PO BID PRN Rash 05/27/24 07/31/24 History (Benadryl Allergy) jwddyyf-fgzkilcbykhac-fzhpfbnv 250 1 tab PO Q4-6H PRN Headache 07/31/24 07/31/24 History mg-250 mg-65 mg tablet (Excedrin Migraine) psyllium husk 0.4 gram capsule 0.4 g PO BEDTIME 07/31/24 07/31/24 History (Fiber (psyllium husk)) Allergies Allergy/AdvReac Type Severity Reaction Status Date / Time No Known Allergies Allergy Verified 07/30/24 17:16 Physical Exam Vital signs: Vital Signs Temp 97.6 F 08/01/24 15:51 Pulse 74 08/01/24 15:51 Resp 24 H 08/01/24 15:51 BP 95/58 L 08/01/24 15:51 Pulse Ox 97 08/01/24 15:51 O2 Del Method Nasal Cannula 08/01/24 15:51 O2 Flow Rate 4 08/01/24 15:51 Intake & Output 07/31/24 08/01/24 08/01/24 18:59 06:59 18:59 Intake Total 200 / 400 200 / 400 100 / 100 Output Total 300 / 300 0 / 300 0 / 0 Balance -100 / 100 200 / 100 100 / 100 Urine Output (Average ml/kg/hr) 0.25 0.00 0.00 Intake: Intake, IV Amount 200 / 400 200 / 400 100 / 100 Ampicillin Sodium/Sulbactam Na 200 / 400 200 / 400 100 / 100 3 gm In 0.9 % Sodium Chloride 100 ml @ 200 mls/hr IV Q6H [facility] Rx#:[id number] Output: Output, Urine Amount 300 / 300 0 / 300 0 / 0 Other: Breakfast % Eaten 0% Lunch % Eaten 0% Number of Incontinent Voids 200 Urine Urinal Urinal Urine Color Tea Last Bowel Movement 07/29/24 07/30/24 07/30/24 Weight 98.9 kg [place] Weight in Grams [id number] Weight 98.9 kg - Constitutional Present: mild distress, disheveled - Routine HEENT Exam Head: Present: atraumatic. Absent: facial swelling Eye: Present: EOMI, normal appearance, PERRL - Routine Neck Exam Present: supple. Absent: lymphadenopathy, meningismus - Routine Respiratory Exam Present: CTAB. Absent: accessory muscle use - Routine Cardiovascular Exam Cardiovascular: Present: S1, S2 - Routine Abdominal Exam Present: soft - Routine Neurological Exam Present: alert, oriented X3, altered mental status Hem/Onc Consult Result - Labs CBC & Chem 7: 08/02/24 06:15 08/02/24 06:15 Labs: Short CBC 08/01/24 Range/Units 15:18 WBC 6.8 (4.8-10.8) X10*3/uL Hgb 9.6 L (14.0-18.0) g/dl Hct 28.9 L (42.0-52.0) % Plt Count 163 (160-400) X10*3/uL BMP 08/01/24 15:18 Sodium 138 Potassium 3.9 Chloride 101 Carbon Dioxide 31 H BUN 10 Creatinine 0.83 Calcium 8.1 L Assessment and Plan Patient Active problem list reviewed?: Yes (1) Melanoma Problem details: Right thigh mass January 2024 biopsy March 2024 Soft tissue, right anterior upper thigh, biopsy: Melanoma, presumed metastatic. Status: C hronic Assessment and plan: 1. This is a 68-year-old male presenting with DeNovo metastatic melanoma, unknown primary site of disease. He presented with right groin lymphadenopathy measuring up to 3.8 x 4.2 cm. Biopsy of this on 02/08/2024 revealed metastatic melanoma. He was started on ipilimumab and nivolumab to be followed by nivolumab maintenance, in March 2024. He [place] [facility]24 with complaints of headaches associated with nausea. CT head with contrast was negative. He developed a fever spike, lumbar puncture performed revealed clear, colorless fluid with elevated total protein of 54, WBC of 16 and glucose of 45. He tested negative for viral and bacterial meningitis. Cytology was negative. Presumed diagnosis was aseptic meningitis which is a rare but seroius adverse effect of immunotherapy. PET scan performed 06/20/2024 showed no abnormal FDG activity in the entire body, small lymph nodes in right groin, not active metabolically. He completed prednisone taper on 07/25/2024. He is now admitted with recurrent symptoms of headache, nausea emesis and fevers. A stat CT brain without contrast performed today was negative. I have recommended lumbar puncture to rule out infectious meningitis. He will need a brain MRI with and without contrast as well to rule out brain metastasis. Differential diagnosis is infectious meningitis versus recurrence of aseptic meningitis. Continue with broad-spectrum antibiotics. If he does have autoimmune/aseptic meningitis he will have to be started on high-dose steroids. Thank you for the consult, will follow with you. - Time Spent With Patient Time Spent with Patient (in minutes): 30
--- NOTE | 2024-08-01 17:31 | PM.EVENT ---
Event Note Date of Service: 08/01/24 Event Note: BOARD ATTENDANT was called while the patient was in the bathroom due to hypotension and lethargy. BP was in the 70s, and glucose was in the 70s. The patient was given dextrose and an LR bolus, leading to a gradual improvement in BP to SBP >100. The patient remains afebrile but continues to have a headache. Stat labs including CBC, BMP, and troponin were unremarkable. Lactic acid was normal. Given the persistent headache, recent steroid use, and hypotension, the patient was administered IV hydrocortisone 100 mg and broad-spectrum antibiotics were initiated, including Vanco Zosyn, Ceftriaxone, and Acyclovir. Blood cultures repeateed. A head CT was negative for any acute findings. LP was attempted by anesthesia but was unsuccessful; IR will attempt the procedure tomorrow. In the meantime, the patient will continue on IV fluids and IV antibiotics. The ICU team has been made aware, and if hypotension persists, ICU transfer may be necessary. Presently, the patient is awake, alert, and oriented but continues to feel unwell. He is warm to touch, and SBP remains >100. Oncology has been consulted. Time Spent With Patient Time: Total time managing care of this patient today ____ minutes.
[2024-08-01] MEDS: cefTRIAXone sodium 2 GM VIAL IVPUSH (17:52)
[2024-08-01] MEDS: ACYCLOVIR SODIUM IV (18:18)
[2024-08-01] MEDS: SODIUM CHLORIDE 0.9% IV (18:18)
[2024-08-01] MEDS: Lactated Ringers 1,000 ML 125 ML IVCONT (18:19)
--- NOTE | 2024-08-01 18:36 | PC.NURSE ---
Pt febrile in am IV toradol given as well as po tylenol. Pt very weak unable to sit up to take meds. Poor appetite and intake, Dr Marks notified. IV fluids ordered mid afternoon. 1445 PRODUCTION SUPPORT CONSULTANT called for assist, pt had ambulated to bathroom where he became weak and minimally responsive. Pt maintained pulse and heart rate on monitor although ismael in 50's diaphoretic at time POC 79. OPENER was called pt lifted to chair and returned to bed. SBP in 60's, BLE elevated IV fluid bolus started and D50 25g given. Pt slowly becoming more responsive. EKG completed as well as labs. Remains on 4L oxygen via NC, SBP slowly returns to 90's systolic. Pt afebrile at this time although rigors noted pt states I'm freezing . ICU consult Dr Kong at bedside. STAT head CT completed prior to LP. Bedside LP unsuccessful at this time. IV meds given per order. 2L LR total in bolus pressure returns to low 100's systolic. Continuous IV fluids infusing per order. 1800 desats into low 80's placed on oxymask at 6L Dr Marks and Dr Negron notified xray ordered. Pt educated not to removed mask. 2 US guided IV's placed to RUE. bed in lowest locked position alarm for safety
[2024-08-01] MEDS: vancomycin/NS 2,000 MG/500 ML PLAST..BAG 250 MG IV (19:43)
--- NOTE | 2024-08-01 20:18 | PHA.PROG ---
Admission Date/Time: July 30, 2024 20:30 Indication: Respiratory Weight in k.9 kg Adjusted body weight in Kg: [place] body weight in Kg: Obesity Dosing Indication % IBW: Serum Creatinine - Last 168 Hours 07/30/24 07/31/24 08/01/24 17:47 05:29 15:18 Creatinine 1.02 0.85 0.83 Estimated CrCl and GFR - Last 168 Hours 07/30/24 07/31/24 08/01/24 17:47 05:29 15:18 Estim Creat Clear Calc 83.0 99.6 100.1 Estimated GFR > 60 > 60 > 60 Vancomycin Loading Dose: 2000mg Current Vancomycin Dosing Regimen: 1250 mg q12H Vancomycin Monitoring using AUC goal of 400 - 600 range with trough as surrogate marker: 538 mg/hr Date and Time for next Vancomycin Level to be drawn: 08/02/2024 @1800 Pharmacist Comments on Vancomycin Plan: Vancomycin dosing will take advantage of [employer] as a clinical decision support tool that uses Bayesian modeling to calculate individual patient's pharmacokinetic parameters and forecast the patient's drug concentration time course with the target goal AUC 24 range of 400 - 600 mg/L/hr.
[2024-08-01] MEDS: Atorvastatin Calcium 10 MG TABLET PO (20:53)
[2024-08-01] MEDS: Enoxaparin Sodium 40 MG/0.4 ML SYRINGE SUBCUT (20:53)
[2024-08-02] VITALS (8 sets, daily range): BP systolic 100–136; BP diastolic 59–69; PULSE 75–96; RESP 15–20; TEMP 36.3–37; O2SAT 97–99
[2024-08-02] MEDS: 0.9 % Sodium Chloride Flush 3 ML SYRINGE IVFLUSH ×4 (00:37→21:18)
[2024-08-02] MEDS: Hydrocortisone Sod Succ/PF 100 MG VIAL IVPUSH ×3 (00:38→15:19)
[2024-08-02] MEDS: Lactated Ringers 1,000 ML 125 ML IVCONT ×2 (02:13→11:15)
[2024-08-02] MEDS: SODIUM CHLORIDE 0.9% IV ×3 (03:11→18:37)
[2024-08-02] MEDS: ACYCLOVIR SODIUM IV ×3 (03:11→18:37)
[2024-08-02] MEDS: Ketorolac Tromethamine 15 MG/ML VIAL IVPUSH (04:46)
[2024-08-02 07:06] LABS: Anion Gap 10 (12-20); Blood Urea Nitrogen 10 mg/dL (9-16); Calcium 8.2 mg/dL (8.4-10.2); Carbon Dioxide 28 mmol/L (22-29); Chloride 105 mmol/L (96-108); Creatinine Clr Calc Pharmacy 125.9; Estimated Glomerular Filt Rate > 60; Glucose Random 123 mg/dL (60-115); Potassium 3.9 mmol/L (3.3-5.1); Sodium 139 mmol/L (135-145)
[2024-08-02 07:11] LABS: Hematocrit 29.5 % (42.0-52.0); Mean Corpuscular HGB Conc 33.9 g/dl (31.0-36.0); Mean Corpuscular Hemoglobin 29.8 pg (27.0-33.0); Mean Corpuscular Volume 87.8 fL (80.0-98.0); Platelet Count 186 X10*3/uL (160-400); Red Blood Count 3.36 X10*6/uL (4.60-5.80); Red Cell Distribution Width 14.1 % (11.0-16.0); White Blood Count 5.7 X10*3/uL (4.8-10.8)
[2024-08-02] MEDS: vancomycin HCL 1,250 MG in 0.9 % Sodium Chloride 250 ML 166.67 MG IV (08:59)
[2024-08-02] MEDS: Multivitamin TABLET 1 TAB PO (09:00)
[2024-08-02] MEDS: Ascorbic Acid 500 MG TABLET 1000 MG PO (09:00)
--- NOTE | 2024-08-02 10:19 | P.PNCA_ITS ---
Subjective Subjective Date of Service: 08/02/24 Interval history: Seen in follow-up of atrial flutter. Today, no active cardiac symptoms. Yesterday, it seems that when he was in the bathroom he came hypotensive and lethargic. Blood sugar was in the 70s. Was given dextrose and fluids and then he improved. He was having also headaches then. Does not appear that it was a cardiac issue as the telemetry then did not show any acute findings. Review of Systems Review of Systems Yes all other systems are reviewed and are negative Constitutional: Reports as per HPI and Reports no additional constitutional complaints Eyes: Reports as per HPI and Denies no additional eye complaints Denies system reviewed and no additional complaints, except as documented and Reports as per HPI Cardiovascular: Reports as per HPI, Reports no additional cardiovascular complaints, Denies acrocyanosis, Denies cool extremities, Denies chest pain, Denies leg edema, Denies lightheadedness, Denies palpitations and Denies dyspnea Respiratory: Reports as per HPI, Denies no additional respiratory complaints and Denies dyspnea Gastrointestinal: Reports as per HPI and Denies no additional gastrointestinal complaints Genitourinary: Reports no additional male genitourinary complaints and Reports as per HPI Musculoskeletal: Reports no additional musculoskeletal complaints and Reports as per HPI Skin/Breast: Reports system reviewed and no additional complaints, except as docu Reports system reviewed and no additional complaints, except as documented and Reports as per HPI Psychiatric: Reports no additional psychiatric complaints and Reports as per HPI Endocrine: Reports no additional endocrine complaints, Reports as per HPI and Denies palpitations Hematologic/Lymphatic: Reports no additional hematologic/lymphatic complaints and Reports as per HPI Allergic/Immunologic: Reports no additional allergic/immunologic complaints and Reports as per HPI Physical Exam Vital Signs: Last Vital Signs Temp 97.3 F 08/02/24 07:25 Pulse 78 08/02/24 07:25 Resp 20 08/02/24 07:25 BP 121/69 08/02/24 07:25 Pulse Ox 98 08/02/24 07:25 O2 Del Method Oxymask 08/02/24 07:25 O2 Flow Rate 6 08/02/24 07:25 BMI result Body Mass Index 32.2 Const General: comfortable and no acute distress Orientation/consciousness: patient oriented x3 HEENT Other: Unremarkable Head: Yes normal to inspection Neck Neck: Yes normal visual inspection Chest Chest palpation & inspection: normal inspection of the chest Resp Auscultation: clear to auscultation bilaterally Cardio Palpation: normal PMI Heart sounds: S1 normal heart sound present, S2 normal heart sound present, no gallops, no murmurs and no rubs GI Palpation (GI): Soft to palpation Back/Spine/Pelvis Other: unremarkable Skin General skin exam: no rashes or lesions noted Neuro General: patient oriented x3 Extrem General: Yes normal to inspection Psych Mental Status: mental status grossly normal Objective Labs and Meds 08/02/24 06:15 08/02/24 06:15 Lab results: Laboratory Results - last 24 hr 08/01/24 08/01/24 08/01/24 08:45 12:00 14:59 WBC RBC Hgb Hct MCV MCH MCHC RDW Plt Count MPV Absolute Nucleated RBC Nucleated RBC % (auto) VBG pH VBG pCO2 VBG pO2 VBG HCO3 VBG O2 Saturation VBG Base Excess Sodium Potassium Chloride Carbon Dioxide Anion Gap BUN Creatinine Estim Creat Clear Calc Estimated GFR POC Glucose 79 Random Glucose Lactic Acid Calcium Troponin I High Sens Nasal Screen MRSA (PCR) NEGATIVE Nasal S. aureus Screen NEGATIVE Nasal MRSA/S.aureus Interp SEE NOTE Respiratory Panel [place] See Note Adenovirus (Rapid PCR) Not Detected B.pert (TEM-PCR) Not Detected B.parapertussis DNA PCR Not Detected C. pneumoniae DNA (PCR) Not Detected Coronavirus OC43 (PCR) Not Detected Coronavirus HKU1 (PCR) Not Detected Coronavirus 229E (PCR) Not Detected Coronavirus NL63 (PCR) Not Detected Human Metapneumovir PCR Not Detected Influenza A (RT-PCR) Not Detected Influenza B (RT-PCR) Not Detected M. pneumoniae (PCR) Not Detected Parainfluenza 1 (PCR) Not Detected Parainfluenza 2 (PCR) Not Detected Parainfluenza 3 (PCR) Not Detected Parainfluenza 4 (PCR) Not Detected RSV (PCR) Not Detected Entero/Rhino (PCR) Not Detected SARS-CoV-2 RNA (RT-PCR) Not Detected 08/01/24 08/01/24 08/01/24 15:18 15:19 15:22 WBC 6.8 RBC 3.20 L Hgb 9.6 L Hct 28.9 L MCV 90.3 MCH 30.0 MCHC 33.2 RDW 14.6 Plt Count 163 MPV 8.2 L Absolute Nucleated RBC 0.000 Nucleated RBC % (auto) 0.0 VBG pH 7.38 VBG pCO2 59 VBG pO2 35 VBG HCO3 35 H VBG O2 Saturation 59.0 VBG Base Excess 9.2 Sodium 138 Potassium 3.9 Chloride 101 Carbon Dioxide 31 H Anion Gap 10 L BUN 10 Creatinine 0.83 Estim Creat Clear Calc 100.1 Estimated GFR > 60 POC Glucose Random Glucose 175 H Lactic Acid 1.0 Calcium 8.1 L Troponin I High Sens 5.4 D Nasal Screen MRSA (PCR) Nasal S. aureus Screen Nasal MRSA/S.aureus Interp Respiratory Panel [place] Adenovirus (Rapid PCR) B.pert (TEM-PCR) B.parapertussis DNA PCR C. pneumoniae DNA (PCR) Coronavirus OC43 (PCR) Coronavirus HKU1 (PCR) Coronavirus 229E (PCR) Coronavirus NL63 (PCR) Human Metapneumovir PCR Influenza A (RT-PCR) Influenza B (RT-PCR) M. pneumoniae (PCR) Parainfluenza 1 (PCR) Parainfluenza 2 (PCR) Parainfluenza 3 (PCR) Parainfluenza 4 (PCR) RSV (PCR) Entero/Rhino (PCR) SARS-CoV-2 RNA (RT-PCR) 08/01/24 08/02/24 15:44 06:15 WBC 5.7 RBC 3.36 L Hgb 10.0 L Hct 29.5 L MCV 87.8 MCH 29.8 MCHC 33.9 RDW 14.1 Plt Count 186 MPV 9.0 L Absolute Nucleated RBC 0.000 Nucleated RBC % (auto) 0.0 VBG pH VBG pCO2 VBG pO2 VBG HCO3 VBG O2 Saturation VBG Base Excess Sodium 139 Potassium 3.9 Chloride 105 Carbon Dioxide 28 Anion Gap 10 L BUN 10 Creatinine 0.66 Estim Creat Clear Calc 125.9 Estimated GFR > 60 POC Glucose 125 H Random Glucose 123 H Lactic Acid Calcium 8.2 L Troponin I High Sens Nasal Screen MRSA (PCR) Nasal S. aureus Screen Nasal MRSA/S.aureus Interp Respiratory Panel [place] Adenovirus (Rapid PCR) B.pert (TEM-PCR) B.parapertussis DNA PCR C. pneumoniae DNA (PCR) Coronavirus OC43 (PCR) Coronavirus HKU1 (PCR) Coronavirus 229E (PCR) Coronavirus NL63 (PCR) Human Metapneumovir PCR Influenza A (RT-PCR) Influenza B (RT-PCR) M. pneumoniae (PCR) Parainfluenza 1 (PCR) Parainfluenza 2 (PCR) Parainfluenza 3 (PCR) Parainfluenza 4 (PCR) RSV (PCR) Entero/Rhino (PCR) SARS-CoV-2 RNA (RT-PCR) Imaging Radiologist's impression: Impressions Head CT 08/01/24 16:25 IMPRESSION: No acute intracranial abnormality. Electronically signed by: Vern Plummer MD 08/01/2024 04:55 PM [facility] Progress Note: A&P Assessment and plan (1) Atrial flutter with rapid ventricular response: Status: Acute Plan Telemetry/EKGs suggestive of atrial flutter with rapid rate. However, duration is quite short just about 3 hours or so. No recurring episodes. Borderline increase in high sensitivity troponins. Cardiac BNP is 26. Echocardiogram with hyperdynamic LVEF. No significant valve findings. Mild pulmonary hypertension. If blood pressure allows, a small dose of khxf-xbmhzhcu-ywdloumzsu 25 mg once a day or twice a day. However, he had hypotensive episode yesterday and hence it seems all the blood pressure meds are on hold. We will need to follow up and decide. No indication for anticoagulation at this time as the episode was quite brief. If indeed it is recurring, then we can reassess. Time Spent With Patient Time: Total time managing care of this patient today ____ minutes. Progress Note: Quality Stroke Does the patient have a stroke diagnosis?: No Procedures Date of Service Date of Service: 08/02/24
[2024-08-02] MEDS: Metoprolol Succinate ER 25 MG TAB.ER.24H PO (11:28)
--- NOTE | 2024-08-02 11:58 | MHC.CM.PN ---
Per ROUNDS discussion, Patient is not yet medically cleared for dc (LP & MRI ); home is the goal and CM will continue to follow.
[2024-08-02] MEDS: gadobutroL 10 ML VIAL IVPUSH (13:42)
--- NOTE | 2024-08-02 14:02 | P.CONPL_ITS ---
History of Present Illness History of Present Illness Consult date: 08/02/24 Chief complaint: Hypoxia Narrative: 68-year-old gentleman with underlying metastatic melanoma, DVT, admitted on 07/30/2024 with septic presentation and treated for sepsis of unclear source. Patient's CT chest demonstrated no evidence of pulmonary emboli, but patchy bilateral infiltrate. Hospital course significant for development of severe sepsis with encephalopathy requiring IV fluid resuscitation and associated hypoxemia requiring up to 6 L of supplemental oxygen via nasal cannula, now essentially titrated off. Review of Systems 2 Constitutional: Constitutional: Denies daytime sleepiness, Denies excessive sweating, Denies fatigue, Denies fever(s), Denies lethargy, Denies malaise, Denies night sweats, Denies snoring and Denies weight loss Eyes: Eyes: Denies blurry vision and Denies itchy eyes ENT: Denies nasal congestion, Denies post nasal drip, Denies sinus pain, Denies sinus pressure and Denies other ( Thrush) Cardiovascular: Cardiovascular: Denies chest pain, Denies pedal edema, Denies dyspnea, Denies orthopnea and Denies paroxysmal nocturnal dyspnea Respiratory: Respiratory: Denies cough, Denies hemoptysis, Denies excessive phlegm production, Denies dyspnea, Denies snoring and Denies wheezing Gastrointestinal: Gastrointestinal: Denies abdominal pain and Denies heartburn Musculoskeletal: Musculoskeletal: Denies myalgias, Denies arthralgias and Denies joint swelling Integumentary/Breasts: Skin/Breast: Denies rash Neurologic: Denies memory loss and Denies seizure-like activity Psychiatric: Psychiatric: Denies abnormal sleep pattern, Denies anxiety and Denies memory loss Endocrine: Endocrine: Denies excessive sweating, Denies fatigue and Denies heat intolerance Hematologic/Lymphatic: Hematologic/Lymphatic: Denies easy bruising Allergic/Immunologic: Allergic/Immunologic: Denies itchy eyes, Denies seasonal rhinorrhea and Denies wheezing PMFSH Past Medical History Medical History PSA elevation Overweight (BMI 25.0-29.9) Finger fracture, right Nephrolithiasis Osteoarthritis Hypercholesterolemia Hypertension Family History Family History Mother Bladder cancer Father Prostate cancer Surgical History Surgical History History of tonsillectomy Social History Social History Household Members: None Housing: House Do you presently have visiting nurse or other home services: No Alcohol intake: former Patient Tobacco Use Status: Never used Tobacco e-Cigarette/Vaping Use: Never Used Second Hand Smoke Exposure: No Advance Directives Date on File: 09/22/22 service: No Current occupational status: employed Sexual orientation: Straight/Heterosexual Gender identity: Male Cognitive needs: No Hearing needs: No Vision needs: Yes Meds Allergies Allergy/AdvReac Type Severity Reaction Status Date / Time No Known Allergies Allergy Verified 07/30/24 17:16 Active Medications: Current Medications Acetaminophen (Acetaminophen 325 Mg Tablet) 650 mg PO Q6H PRN PRN Reason: Pain, Mild 1-3,fever,headache Last Admin: 08/01/24 20:02 Dose: 650 mg Ascorbic Acid (Ascorbic Acid 500 Mg Tablet) 1,000 mg PO DAILY [facility] Last Admin: 08/02/24 09:00 Dose: 1,000 mg Atorvastatin Calcium (Atorvastatin Calcium 10 Mg Tablet) 10 mg PO BEDTIME [facility] Last Admin: 08/01/24 20:53 Dose: 10 mg Calcium Carbonate (Calcium Carbonate 750 Mg Tab.Chew) 750 mg PO Q4H PRN PRN Reason: Heartburn Ceftriaxone Sodium (Ceftriaxone Sodium 2 Gm Vial) 2 gm IVPUSH Q24H [facility] Last Admin: 08/01/24 17:52 Dose: 2 gm Diphenhydramine HCl (Diphenhydramine Hcl 25 Mg Capsule) 25 mg PO BID PRN PRN Reason: Rash Enoxaparin Sodium (Enoxaparin Sodium 40 Mg/0.4 Ml Syringe) 40 mg SUBCUT Q24H [facility] Last Admin: 08/01/24 20:53 Dose: 40 mg Hydrocortisone Sodium Succinate (Hydrocortisone Sod Succ/Pf 100 Mg Vial) 100 mg IVPUSH Q8H [facility] Last Admin: 08/02/24 09:00 Dose: 100 mg Lactated Ringer's (Lr) 1,000 mls @ 125 mls/hr IVCONT .Q8H [facility] Last Admin: 08/02/24 11:15 Dose: 125 mls/hr Vancomycin HCl 1,250 mg/ (Sodium Chloride) 250 mls @ 166.667 mls/hr IV Q12H [facility] Last Infusion: 08/02/24 11:32 Dose: Infused Acyclovir Sodium 820 mg/ (Sodium Chloride) 266.4 mls @ 266.4 mls/hr IV Q8H [facility] Last Admin: 08/02/24 11:34 Dose: 266.4 mls/hr Magnesium Hydroxide (Milk Of Magnesia 30 Ml Oral.Susp) 30 ml PO DAILY PRN PRN Reason: Constipation Melatonin (Melatonin 3 Mg Tablet) 6 mg PO BEDTIME PRN PRN Reason: Insomnia Metoprolol Succinate (Metoprolol Succinate Er 25 Mg Tab.Er.24h) 25 mg PO DAILY [facility]; Protocol Last Admin: 08/02/24 11:28 Dose: 25 mg Multivitamins/Vitamin C (Multivitamin Tablet) 1 tab PO DAILY [facility] Last Admin: 08/02/24 09:00 Dose: 1 tab Ondansetron HCl (Ondansetron Hcl 4 Mg/2 Ml Vial) 4 mg IVPUSH Q8H PRN PRN Reason: Nausea and Vomiting Last Admin: 08/01/24 04:48 Dose: 4 mg Pharmacy Consult (Consult Rx Vancomycin Dosing) 1 each MISCELLANE DAILY PRN PRN Reason: Consult order Psyllium Hydrophilic Mucilloid (Psyllium Seed 3.7 Gm Packet) 3.7 gm PO BEDTIME [facility] Last Admin: 08/01/24 20:55 Dose: Not Given Sodium Chloride (0.9 % Sodium Chloride Flush 3 Ml Syringe) 3 ml IVFLUSH QSHIFT [facility] Last Admin: 08/02/24 09:00 Dose: 3 ml Home Medications ?Medication ?Instructions ?Recorded ?Confirmed ?Last Taken ?Type ascorbic acid (vitamin C) 1,000 mg 1 g PO DAILY 05/21/20 07/31/24 07/29/24 History tablet multivitamin-ferrous 1 tab PO DAILY 05/21/20 07/31/24 07/29/24 History fumarate-folic acid 18 mg-400 mcg tablet (Centrum) omega-3 fatty acids 1,000 mg 1,000 mg PO DAILY 05/21/20 07/31/24 07/29/24 History capsule acetaminophen 500 mg tablet 1,000 mg PO Q6H PRN Headache 05/26/24 07/31/24 Unknown History (Acetaminophen Extra Strength) diphenhydramine HCl 25 mg tablet 25 mg PO BID PRN Rash 05/27/24 07/31/24 Unknown History (Benadryl Allergy) [id number] 250 1 tab PO Q4-6H PRN Headache 07/31/24 07/31/24 07/29/24 History mg-250 mg-65 mg tablet (Excedrin Migraine) psyllium husk 0.4 gram capsule 0.4 g PO BEDTIME 07/31/24 07/31/24 07/29/24 History (Fiber (psyllium husk)) Physical Exam 2 Vital Signs: Vital Signs: Last Vital Signs Temp 98.6 F 08/02/24 11:25 Pulse 88 08/02/24 11:25 Resp 15 08/02/24 11:25 BP 131/67 08/02/24 11:25 Pulse Ox 99 08/02/24 11:25 O2 Del Method Oxymask 08/02/24 11:25 O2 Flow Rate 2 08/02/24 11:25 BMI result Body Mass Index 32.2 Const: General: no acute distress and alert Nutritional Appearance: not obese Orientation/consciousness: Other orientation findings ( oriented) HEENT: Head: Yes atraumatic Eyes: General: appearance normal, both eyes and all related structures S clerae: sclerae normal EOM: EOMs intact bilaterally Neck: Neck: Yes supple Lymphatic: no lymphadenopathy noted Resp: Effort & Inspection: normal respiratory effort and no use of accessory muscles Auscultation: clear to auscultation bilaterally Cardio: Rate: regular rate Rhythm: regular rhythm Heart sounds: no gallops, no murmurs and no rubs Skin: General skin exam: other ( warm) Extrem: General: No clubbing, No cyanosis and No edema Results Laboratory Findings 08/02/24 06:15 08/02/24 06:15 Abnormal lab findings: Abnormal Labs 07/30/24 07/30/24 07/30/24 17:47 17:50 21:04 RBC 4.44 L Hgb 13.4 L Hct 39.6 L MPV 8.0 L [place] % (Auto) VBG HCO3 32 H Carbon Dioxide Anion Gap POC Glucose Random Glucose Calcium AST 53 H ALT 56 H Troponin I High Sens 38.5 H Ur Specific [place] Urine Protein 07/31/24 07/31/24 08/01/24 05:29 15:45 15:18 RBC 3.94 L 3.20 L Hgb 11.9 L 9.6 L Hct 35.9 L 28.9 L MPV 8.2 L 8.2 L [place] % (Auto) 12.7 H VBG HCO3 Carbon Dioxide 31 H Anion Gap 11 L 10 L POC Glucose Random Glucose 175 H Calcium 8.1 L D 8.1 L AST ALT Troponin I High Sens Ur Specific [place] >= 1.030 H Urine Protein 30 (1+) H 08/01/24 08/01/24 08/02/24 15:22 15:44 06:15 RBC 3.36 L Hgb 10.0 L Hct 29.5 L MPV 9.0 L [place] % (Auto) VBG HCO3 35 H Carbon Dioxide Anion Gap 10 L POC Glucose 125 H Random Glucose 123 H Calcium 8.2 L AST ALT Troponin I High Sens Ur Specific [place] Urine Protein Microbiology: Microbiology 07/30/24 18:07 Blood - Venous Blood Culture - Preliminary No growth after 48 hours. 07/30/24 17:47 Blood - Venous Blood Culture - Preliminary No growth after 48 hours. Assessment and Plan (1) Acute respiratory failure with hypoxia: Status: Acute (2) Sepsis: Status: Acute Plan Impression: 68-year-old gentleman admitted with severe sepsis and treated with broad-spectrum antibiotics, also with an episode of acute hypoxemia requiring up to 6 L of supplemental oxygen, now essentially titrated off. Hypoxemia likely related to fluid shifts with IV fluid resuscitation of underlying sepsis. No significant pneumonia at this time. Recommendation: Continue to titrate off supplemental oxygen as tolerated. Continue empiric broad-spectrum antibiotics. Procedures Date of Service Date of Service: 08/02/24
--- NOTE | 2024-08-02 14:26 | HO.PM.IMPN ---
Subjective Subjective Date of Service: 08/02/24 Interval History: seen and evaluated this morning no fever last 24 hours HR better controlled Pending LP, MRI BP improved no other events Review of Systems Review of Systems: Yes all other systems are reviewed and are negative Physical Exam Vital Signs: Vital Signs: Last Vital Signs Temp 98.6 F 08/02/24 11:25 Pulse 88 08/02/24 11:25 Resp 15 08/02/24 11:25 BP 131/67 08/02/24 11:25 Pulse Ox 99 08/02/24 11:25 O2 Del Method Oxymask 08/02/24 11:25 O2 Flow Rate 2 08/02/24 11:25 BMI result Body Mass Index 32.2 Const: Other: General: AO X 3, no acute distress Resp: cecile rhonchi CVS: S1,S2,RRR GI: +BS, NT, no distention Skin: No rash Neuro: motor grossly intact Psych: appropriate affect Objective Data Active Medications Acetaminophen (Acetaminophen 325 Mg Tablet) 650 mg PO Q6H PRN PRN Reason: Pain, Mild 1-3,fever,headache Last Admin: 08/01/24 20:02 Dose: 650 mg Documented By: DON Ascorbic Acid (Ascorbic Acid 500 Mg Tablet) 1,000 mg PO DAILY [facility] Last Admin: 08/02/24 09:00 Dose: 1,000 mg Documented By: RADHA Atorvastatin Calcium (Atorvastatin Calcium 10 Mg Tablet) 10 mg PO BEDTIME [facility] Last Admin: 08/01/24 20:53 Dose: 10 mg Documented By: DON Calcium Carbonate (Calcium Carbonate 750 Mg Tab.Chew) 750 mg PO Q4H PRN PRN Reason: Heartburn Ceftriaxone Sodium (Ceftriaxone Sodium 2 Gm Vial) 2 gm IVPUSH Q24H [facility] Last Admin: 08/01/24 17:52 Dose: 2 gm Documented By: LEONOR Diphenhydramine HCl (Diphenhydramine Hcl 25 Mg Capsule) 25 mg PO BID PRN PRN Reason: Rash Enoxaparin Sodium (Enoxaparin Sodium 40 Mg/0.4 Ml Syringe) 40 mg SUBCUT Q24H [facility] Last Admin: 08/01/24 20:53 Dose: 40 mg Documented By: DON Hydrocortisone Sodium Succinate (Hydrocortisone Sod Succ/Pf 100 Mg Vial) 100 mg IVPUSH Q8H [facility] Last Admin: 08/02/24 09:00 Dose: 100 mg Documented By: RADHA Lactated Ringer's (Lr) 1,000 mls @ 125 mls/hr IVCONT .Q8H [facility] Last Admin: 08/02/24 11:15 Dose: 125 mls/hr Documented By: RADHA Vancomycin HCl 1,250 mg/ (Sodium Chloride) 250 mls @ 166.667 mls/hr IV Q12H [facility] Last Infusion: 08/02/24 11:32 Dose: Infused Documented By: RADHA Acyclovir Sodium 820 mg/ (Sodium Chloride) 266.4 mls @ 266.4 mls/hr IV Q8H [facility] Last Admin: 08/02/24 11:34 Dose: 266.4 mls/hr Documented By: RADHA Magnesium Hydroxide (Milk Of Magnesia 30 Ml Oral.Susp) 30 ml PO DAILY PRN PRN Reason: Constipation Melatonin (Melatonin 3 Mg Tablet) 6 mg PO BEDTIME PRN PRN Reason: Insomnia Metoprolol Succinate (Metoprolol Succinate Er 25 Mg Tab.Er.24h) 25 mg PO DAILY [facility]; Protocol Last Admin: 08/02/24 11:28 Dose: 25 mg Documented By: RADHA Multivitamins/Vitamin C (Multivitamin Tablet) 1 tab PO DAILY [facility] Last Admin: 08/02/24 09:00 Dose: 1 tab Documented By: RADHA Ondansetron HCl (Ondansetron Hcl 4 Mg/2 Ml Vial) 4 mg IVPUSH Q8H PRN PRN Reason: Nausea and Vomiting Last Admin: 08/01/24 04:48 Dose: 4 mg Documented By: ALFONSO Pharmacy Consult (Consult Rx Vancomycin Dosing) 1 each MISCELLANE DAILY PRN PRN Reason: Consult order Psyllium Hydrophilic Mucilloid (Psyllium Seed 3.7 Gm Packet) 3.7 gm PO BEDTIME [facility] Last Admin: 08/01/24 20:55 Dose: Not Given Documented By: DON Non-Admin Reason: Patient Refused Sodium Chloride (0.9 % Sodium Chloride Flush 3 Ml Syringe) 3 ml IVFLUSH QSHIFT [facility] Last Admin: 08/02/24 09:00 Dose: 3 ml Documented By: RADHA Labs 08/02/24 06:15 08/02/24 06:15 Labs: Laboratory Results - last 24 hr 08/01/24 08/01/24 08/01/24 14:59 15:18 15:19 MCV 90.3 MCH 30.0 MCHC 33.2 RDW 14.6 Plt Count 163 MPV 8.2 L Absolute Nucleated RBC 0.000 Nucleated RBC % (auto) 0.0 VBG pH VBG pCO2 VBG pO2 VBG HCO3 VBG O2 Saturation VBG Base Excess Anion Gap 10 L Estim Creat Clear Calc 100.1 Estimated GFR > 60 POC Glucose 79 Random Glucose 175 H Lactic Acid 1.0 Calcium 8.1 L 08/01/24 08/01/24 08/02/24 15:22 15:44 06:15 MCV 87.8 MCH 29.8 MCHC 33.9 RDW 14.1 Plt Count 186 MPV 9.0 L Absolute Nucleated RBC 0.000 Nucleated RBC % (auto) 0.0 VBG pH 7.38 VBG pCO2 59 VBG pO2 35 VBG HCO3 35 H VBG O2 Saturation 59.0 VBG Base Excess 9.2 Anion Gap 10 L Estim Creat Clear Calc 125.9 Estimated GFR > 60 POC Glucose 125 H Random Glucose 123 H Lactic Acid Calcium 8.2 L Microbiology Microbiology Results: Microbiology 07/30/24 18:07 Blood Culture - Preliminary Blood - Venous No growth after 48 hours. 07/30/24 17:47 Blood Culture - Preliminary Blood - Venous No growth after 48 hours. Assessment and Plan (1) Atrial flutter with rapid ventricular response: Status: Acute (2) CAP (community acquired pneumonia): Status: Acute (3) Acute respiratory failure with hypoxia: Status: Acute (4) Aseptic meningitis: Status: Acute Plan 68-year-old male with a past medical history significant for prostate cancer s/p radical prostatectomy, nephrolithiasis, OA, HLD, HTN, metastatic melanoma (L groin) receiving chemotherapy with Dr. Smalls, history DVT and recent admission in May for aseptic meningitis, presents vomiting and headache. Acute hypoxic respiratory failure and sepsis secondary to community-acquired pneumonia, suspect aspiration pneumonia Continue Abx Negative respiratory panel continue O2. wean as toelrated Cultures negative Headaches, fever. 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 Smalls receiving immunotherapy, possible complication include asceptic mengingt. History DVT not on any anticoagulation Full code VTE prophylaxis: Lovenox The paitent will need overnight stay for treatment of hypoxemia and pending LP and MRI for fever evaluation Quality Stroke Does the patient have a stroke diagnosis?: No VTE Prior VTE?: No VTE Risk Level:: Medical - moderate - high VTE Device Contraindication: Treatment Not Indicated VTE Drug Contraindication: N/A - Med Ordered
--- NOTE | 2024-08-02 14:42 | PM.PROC ---
Brief Operative Note Date of procedure: 08/02/24 Pre-op diagnosis: Headache, fever, melanoma Post-op diagnosis: same Procedure: FL Lumbar Puncture L4-5, Opening 19 cm H20. 8 cc clear csf removed and sent for requested labs.
[2024-08-02] MEDS: cefTRIAXone sodium 2 GM VIAL IVPUSH (15:19)
--- NOTE | 2024-08-02 15:25 | PM.HEMONCPN ---
Medical Summary - Medical Summary Date of Service: 08/02/24 Chief complaint: Weakness Primary Care Provider: Raghu Contreras MD Medical Summary: Diagnosis: De bassem metastatic melanoma 02/2024 Past medical history of prostate cancer, status post radical prostatectomy presenting. He was seen by surgeon in December with a 2 month history of right groin mass, he had no symptoms of pain, loss of appetite or weight loss. Pelvic MRI with contrast on 01/31/2024 revealed right inguinal lymphadenopathy measuring up to 3.8 x 4.2 cm with surrounding tissue stranding concerning for metastatic disease. On 02/08/2024 he had biopsy of this mass which revealed metastatic melanoma. Immunostains histochemical stains reactive with Cameron-1, HMB45, SOX 1, PRAME. Patient was never treated for melanoma. PET scan performed at [facility] on 03/02/2024 revealed metabolically active retroperitoneal lymph nodes along the aorta with SUV 13.2, FDG avid left common iliac nodes SUV max 15.2, FDG active right external iliac and right inguinal lymph nodes SUV max up to 17.9. FDG avid scattered mediastinal lymph nodes with SUV max up to 4.9. CT chest/abdomen and pelvis revealed bulky right inguinal, right external and internal iliac lymphadenopathy, para-aortic retroperitoneal lymphadenopathy consistent with metastatic adelaida disease. Incompletely imaged bulky right inguinal and femoral lymphadenopathy, largest lymph node measuring 5.9 x 4.2 cm. Bony metastasis in L4, L5, S1 and S2. Fatty infiltration of liver. 1 cm enhancing splenic nodules suspicious. In the chest there were suspicious right upper lobe nodule, mediastinal lymphadenopathy measuring up to 1.7 cm. Brain MRI showed no evidence of metastatic disease. He was started on ipilimumab and nivolumab followed by nivolumab maintenance, in March 2024. Stat right lower extremity Doppler was negative for DVT. Enlarged inguinal lymph nodes seen in the groin measuring up to 7.4 x 5.6 cm which is probably the cause of his right leg swelling. 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 Patient was admitted in May for aseptic meningitis. He was tapered off a long course of steroids on 07/25/2023. He was doing well when he was seen in Hematology/Oncology Clinic on 07/28/2023. However on Wednesday morning he had mild headache this seemed to have progressed overnight and by Wednesday morning he had thrown up. His brother did not hear from him on Wednesday but apparently the neighbors asked for a well check because patient did not come out to clear the snow. Ambulance was called by the police on Wednesday as patient was confused. As per chart review, patient felt chills but did not actually check his temperature at home. In the emergency room he had a temperature of 102.8 degrees F. blood cultures so far are negative. He had a CT angiogram because of hypoxia, this was negative for PE. He was started on ceftriaxone and azithromycin for presumed pneumonia. Patient continued to feel poorly in the last 2 days. He continues to have fever. COVID/flu/RSV was negative. Patient is feeling better today. He underwent lumbar puncture a little while ago. He has not had any fever or chills today. Review of Systems - Neurologic Reports no additional neurologic complaints, Reports as per HPI, Denies confusion, Denies syncope, Reports headache(s), Denies memory loss, Denies numbness, Denies seizure-like activity, Denies tingling, Reports weakness PMFSH Medical History: Medical History (Last Reviewed 07/31/24 @ 09:38 by Kathie Reina RN) Finger fracture, right Hypercholesterolemia Hypertension Nephrolithiasis Osteoarthritis Overweight (BMI 25.0-29.9) PSA elevation Functional capacity: independent ambulation Family History: Family History (Last Reviewed 07/28/24 @ 09:17 by Blaine Dee) Mother Bladder cancer Father Prostate cancer Surgical History: Surgical History (Last Reviewed 07/31/24 @ 09:38 by Kathie Reina RN) History of tonsillectomy Social History: Social History (Last Reviewed 07/28/24 @ 09:21 by Blaine Dee) Living Situation History: Household Members: None Housing: House Do you presently have visiting nurse or other home services: No Tobacco History: Patient Tobacco Use Status: Never used Tobacco e-Cigarette/Vaping Use: Never Used Second Hand Smoke Exposure: No Advance Directives: Advance Directives Date on File: 09/22/22 Occupation Assessmet: service: No Current occupational status: employed Sex/Gender Assessment: Sexual orientation: Straight/Heterosexual Gender identity: Male Home Medications and Allergies Current Medications: Current Medications Acetaminophen (Acetaminophen 325 Mg Tablet) 650 mg PO Q6H PRN PRN Reason: Pain, Mild 1-3,fever,headache Last Admin: 08/01/24 20:02 Dose: 650 mg Ascorbic Acid (Ascorbic Acid 500 Mg Tablet) 1,000 mg PO DAILY [facility] Last Admin: 08/02/24 09:00 Dose: 1,000 mg Atorvastatin Calcium (Atorvastatin Calcium 10 Mg Tablet) 10 mg PO BEDTIME [facility] Last Admin: 08/01/24 20:53 Dose: 10 mg Calcium Carbonate (Calcium Carbonate 750 Mg Tab.Chew) 750 mg PO Q4H PRN PRN Reason: Heartburn Ceftriaxone Sodium (Ceftriaxone Sodium 2 Gm Vial) 2 gm IVPUSH Q24H [facility] Last Admin: 08/01/24 17:52 Dose: 2 gm Diphenhydramine HCl (Diphenhydramine Hcl 25 Mg Capsule) 25 mg PO BID PRN PRN Reason: Rash Enoxaparin Sodium (Enoxaparin Sodium 40 Mg/0.4 Ml Syringe) 40 mg SUBCUT Q24H [facility] Last Admin: 08/01/24 20:53 Dose: 40 mg Hydrocortisone Sodium Succinate (Hydrocortisone Sod Succ/Pf 100 Mg Vial) 100 mg IVPUSH Q8H [facility] Last Admin: 08/02/24 09:00 Dose: 100 mg Lactated Ringer's (Lr) 1,000 mls @ 75 mls/hr IVCONT .[id number] [facility] Last Admin: 08/02/24 11:15 Dose: 125 mls/hr Vancomycin HCl 1,250 mg/ (Sodium Chloride) 250 mls @ 166.667 mls/hr IV Q12H [facility] Last Infusion: 08/02/24 11:32 Dose: Infused Acyclovir Sodium 820 mg/ (Sodium Chloride) 266.4 mls @ 266.4 mls/hr IV Q8H [facility] Last Admin: 08/02/24 11:34 Dose: 266.4 mls/hr Magnesium Hydroxide (Milk Of Magnesia 30 Ml Oral.Susp) 30 ml PO DAILY PRN PRN Reason: Constipation Melatonin (Melatonin 3 Mg Tablet) 6 mg PO BEDTIME PRN PRN Reason: Insomnia Metoprolol Succinate (Metoprolol Succinate Er 25 Mg Tab.Er.24h) 25 mg PO DAILY [facility]; Protocol Last Admin: 08/02/24 11:28 Dose: 25 mg Multivitamins/Vitamin C (Multivitamin Tablet) 1 tab PO DAILY [facility] Last Admin: 08/02/24 09:00 Dose: 1 tab Ondansetron HCl (Ondansetron Hcl 4 Mg/2 Ml Vial) 4 mg IVPUSH Q8H PRN PRN Reason: Nausea and Vomiting Last Admin: 08/01/24 04:48 Dose: 4 mg Pharmacy Consult (Consult Rx Vancomycin Dosing) 1 each MISCELLANE DAILY PRN PRN Reason: Consult order Psyllium Hydrophilic Mucilloid (Psyllium Seed 3.7 Gm Packet) 3.7 gm PO BEDTIME [facility] Last Admin: 08/01/24 20:55 Dose: Not Given Sodium Chloride (0.9 % Sodium Chloride Flush 3 Ml Syringe) 3 ml IVFLUSH QSHIFT [facility] Last Admin: 08/02/24 09:00 Dose: 3 ml Home Medications ?Medication ?Instructions ?Recorded ?Confirmed ?Type ascorbic acid (vitamin C) 1,000 mg 1 g PO DAILY 05/21/20 07/31/24 History tablet multivitamin-ferrous 1 tab PO DAILY 05/21/20 07/31/24 History fumarate-folic acid 18 mg-400 mcg tablet (Centrum) omega-3 fatty acids 1,000 mg 1,000 mg PO DAILY 05/21/20 07/31/24 History capsule acetaminophen 500 mg tablet 1,000 mg PO Q6H PRN Headache 05/26/24 07/31/24 History (Acetaminophen Extra Strength) diphenhydramine HCl 25 mg tablet 25 mg PO BID PRN Rash 05/27/24 07/31/24 History (Benadryl Allergy) htrkste-ymeihvjxdyikr-ojprnmts 250 1 tab PO Q4-6H PRN Headache 07/31/24 07/31/24 History mg-250 mg-65 mg tablet (Excedrin Migraine) psyllium husk 0.4 gram capsule 0.4 g PO BEDTIME 07/31/24 07/31/24 History (Fiber (psyllium husk)) Allergies Allergy/AdvReac Type Severity Reaction Status Date / Time No Known Allergies Allergy Verified 07/30/24 17:16 Exam Vital signs: Vital Signs Temp 98.6 F 08/02/24 11:25 Pulse 88 08/02/24 11:25 Resp 15 08/02/24 11:25 BP 131/67 08/02/24 11:25 Pulse Ox 99 08/02/24 11:25 O2 Del Method Oxymask 08/02/24 11:25 O2 Flow Rate 2 08/02/24 11:25 Intake & Output 08/01/24 08/02/24 08/02/24 18:59 06:59 18:59 Intake Total 2100 / 4360.3 2260.3 / 4360.3 1250 / 1250 Output Total 0 / 0 Balance 2100 / 4360.3 2260.3 / 4360.3 1250 / 1250 Urine Output (Average ml/kg/hr) 0.00 0.00 0.00 Intake: Intake, Oral Amount 240 / 240 Intake, IV Amount 2100 / 4120.3 2020.3 / 4120.3 1250 / 1250 Acyclovir Sodium 820 mg In 0.9 532.8 / 532.8 % Sodium Chloride 250 ml @ 266. 4 mls/hr IV Q8H [facility] Rx#: [id number] Ampicillin Sodium/Sulbactam Na 100 / 100 3 gm In 0.9 % Sodium Chloride 100 ml @ 200 mls/hr IV Q6H [facility] Rx#:[id number] Lactated Ringers 1,000 ml @ 999 2000 / 2000 mls/hr IV .Q1H1M [facility] Rx#: [id number] vancomycin HCL 1,250 mg In 0.9 250 / 250 % Sodium Chloride 250 ml @ 166. 667 mls/hr IV Q12H [facility] Rx#: [id number] vancomycin/NS 2,000 mg In 500 500 / 500 ml @ 250 mls/hr IV ONCE ONE Rx# :[id number] Lactated Ringers 1,000 ml @ 125 987.5 / 987.5 1000 / 1000 mls/hr IVCONT .Q8H [facility] Rx#: [id number] Output: Output, Urine Amount 0 / 0 Other: Breakfast % Eaten 0% Lunch % Eaten 0% Number of Unmeasured Voids 1 Number of Bowel Movements 1 Urine Bedside Commode Urine Color Yellow Last Bowel Movement 07/30/24 08/02/24 08/02/24 Stool Bedside Commode Stool Amount Moderate Stool Color Brown Stool Consistency Loose Weight 98.9 kg BMI result Body Mass Index 32.2 - Constitutional Present: mild distress, disheveled - Routine HEENT Exam Head: Present: atraumatic. Absent: facial swelling - Routine Respiratory Exam Present: CTAB. Absent: accessory muscle use - Routine Cardiovascular Exam Cardiovascular: Present: S1, S2 - Routine Abdominal Exam Present: soft - Routine Neurological Exam Present: alert, oriented X3, altered mental status Data - Labs CBC & Chem 7: 08/02/24 06:15 08/02/24 06:15 Labs: Laboratory Last Values WBC 5.7 X10*3/uL (4.8-10.8) 08/02/24 06:15 RBC 3.36 X10*6/uL (4.60-5.80) L 08/02/24 06:15 Hgb 10.0 g/dl (14.0-18.0) L 08/02/24 06:15 Hct 29.5 % (42.0-52.0) L 08/02/24 06:15 MCV 87.8 fL (80.0-98.0) 08/02/24 06:15 MCH 29.8 pg (27.0-33.0) 08/02/24 06:15 MCHC 33.9 g/dl (31.0-36.0) 08/02/24 06:15 RDW 14.1 % (11.0-16.0) 08/02/24 06:15 Plt Count 186 X10*3/uL (160-400) 08/02/24 06:15 MPV 9.0 fL (9.4-12.4) L 08/02/24 06:15 Immature Gran % (Auto) 0.2 % (0.0-0.4) 07/31/24 05:29 Neut % (Auto) 64.9 % (45-73) 07/31/24 05:29 Lymph % (Auto) 20.4 % (20-40) 07/31/24 05:29 [place] % (Auto) 12.7 % (2-11) H 07/31/24 05:29 Eos % (Auto) 1.3 % (0-4) 07/31/24 05:29 Baso % (Auto) 0.5 % (0-2) 07/31/24 05:29 Lymph # (Auto) 1.7 X10*3/uL (1.2-4.9) 07/31/24 05:29 [place] # (Auto) 1.1 X10*3/uL (0.1-1.2) 07/31/24 05:29 Eos # (Auto) 0.1 X10*3/uL (0.0-0.4) 07/31/24 05:29 Baso # (Auto) 0.0 X10*3/uL (0.0-0.2) 07/31/24 05:29 Abs Immat Gran (auto) 0.02 X10*3/uL (0.00-0.03) 07/31/24 05:29 Absolute Neuts (auto) 5.4 x10*3/uL (2.0-8.3) 07/31/24 05:29 Absolute Nucleated RBC 0.000 X10*3/uL (0.0-0.012) 08/02/24 06:15 Nucleated RBC % (auto) 0.0 /100WBC (0.0-0.2) 08/02/24 06:15 APTT 33.4 SEC (26.0-36.8) 07/30/24 17:47 VBG pH 7.38 (7.32-7.43) 08/01/24 15:22 VBG pCO2 59 mmHg 08/01/24 15:22 VBG pO2 35 mmHg 08/01/24 15:22 VBG HCO3 35 mmol/L (22-26) H 08/01/24 15:22 VBG O2 Saturation 59.0 % 08/01/24 15:22 VBG Base Excess 9.2 mmol/L 08/01/24 15:22 Sodium 139 mmol/L (135-145) 08/02/24 06:15 Potassium 3.9 mmol/L (3.3-5.1) 08/02/24 06:15 Chloride 105 mmol/L (96-108) 08/02/24 06:15 Carbon Dioxide 28 mmol/L (22-29) 08/02/24 06:15 Anion Gap 10 (12-20) L 08/02/24 06:15 BUN 10 mg/dL (9-16) 08/02/24 06:15 Creatinine 0.66 mg/dL (0.5-1.4) 08/02/24 06:15 Estim Creat Clear Calc 125.9 08/02/24 06:15 Estimated GFR > 60 08/02/24 06:15 POC Glucose 125 mg/dL (60-115) H 08/01/24 15:44 Random Glucose 123 mg/dL (60-115) H 08/02/24 06:15 Lactic Acid 1.0 mmol/L (0.5-2.0) 08/01/24 15:19 Calcium 8.2 mg/dL (8.4-10.2) L 08/02/24 06:15 Magnesium 1.9 mg/dL (1.6-2.6) 07/30/24 17:47 Total Bilirubin 0.9 mg/dL (0.0-1.0) 07/30/24 17:47 AST 53 U/L (5-37) H 07/30/24 17:47 ALT 56 U/L (0-40) H 07/30/24 17:47 Alkaline Phosphatase 64 U/L (39-117) 07/30/24 17:47 Total Creatine Kinase 109 U/L (38-174) 07/30/24 17:47 Troponin I High Sens 5.4 ng/L (<3.5-35.0) D 08/01/24 15:18 B-Natriuretic Peptide 26 pg/mL (<100) 07/30/24 17:47 Total Protein 7.7 g/dL (6.5-8.0) 07/30/24 17:47 Albumin 4.2 g/dL (3.5-5.0) 07/30/24 17:47 Lipase 22 U/L (8-78) 07/30/24 17:47 Urine Color Dark Yellow 07/31/24 15:45 Urine Appearance Clear 07/31/24 15:45 Urine pH 5.5 (5.0-9.0) 07/31/24 15:45 Ur Specific [place] >= 1.030 (1.005-1.025) H 07/31/24 15:45 Urine Protein 30 (1+) mg/dL (Neg-Trace) H 07/31/24 15:45 Urine Glucose (UA) Negative mg/dL (Negative) 07/31/24 15:45 Urine Ketones Trace mg/dL (Negative) 07/31/24 15:45 Urine Blood Negative (Negative) 07/31/24 15:45 Urine Nitrite Negative (Negative) 07/31/24 15:45 Ur Leukocyte Esterase Negative (Negative) 07/31/24 15:45 Urine RBC 0-2 /HPF (0-2) 07/31/24 15:45 Urine WBC 0-5 /HPF (0-5) 07/31/24 15:45 Ur Squamous Epith Cells 0-2 /HPF (0-2) 07/31/24 15:45 Urine Bacteria None Seen (None Seen) 07/31/24 15:45 Hyaline Casts 0-2 /LPF (0-2) 07/31/24 15:45 Nasal Screen MRSA (PCR) NEGATIVE (Negative) 08/01/24 12:00 Nasal S. aureus Screen NEGATIVE (Negative) 08/01/24 12:00 Nasal MRSA/S.aureus Interp SEE NOTE 08/01/24 12:00 Respiratory Panel [place] See Note 08/01/24 08:45 Adenovirus (Rapid PCR) Not Detected (Not Detect.) 08/01/24 08:45 B.pert (TEM-PCR) Not Detected (Not Detect.) 08/01/24 08:45 B.parapertussis DNA PCR Not Detected (Not Detect.) 08/01/24 08:45 C. pneumoniae DNA (PCR) Not Detected (Not Detect.) 08/01/24 08:45 Coronavirus OC43 (PCR) Not Detected (Not Detect.) 08/01/24 08:45 Coronavirus HKU1 (PCR) Not Detected (Not Detect.) 08/01/24 08:45 Coronavirus 229E (PCR) Not Detected (Not Detect.) 08/01/24 08:45 Coronavirus NL63 (PCR) Not Detected (Not Detect.) 08/01/24 08:45 Human Metapneumovir PCR Not Detected (Not Detect.) 08/01/24 08:45 Influenza A (RT-PCR) Not Detected (Not Detect.) 08/01/24 08:45 Influenza Type A (PCR) NEGATIVE (Negative) 07/30/24 17:47 Influenza B (RT-PCR) Not Detected (Not Detect.) 08/01/24 08:45 Influenza Type B (PCR) NEGATIVE (Negative) 07/30/24 17:47 M. pneumoniae (PCR) Not Detected (Not Detect.) 08/01/24 08:45 Parainfluenza 1 (PCR) Not Detected (Not Detect.) 08/01/24 08:45 Parainfluenza 2 (PCR) Not Detected (Not Detect.) 08/01/24 08:45 Parainfluenza 3 (PCR) Not Detected (Not Detect.) 08/01/24 08:45 Parainfluenza 4 (PCR) Not Detected (Not Detect.) 08/01/24 08:45 RSV (PCR) Not Detected (Not Detect.) 08/01/24 08:45 RSV RNA Qual (PCR) NEGATIVE (Negative) 07/30/24 17:47 Entero/Rhino (PCR) Not Detected (Not Detect.) 08/01/24 08:45 SARS-CoV-2 RNA (RT-PCR) Not Detected (Not Detect.) 08/01/24 08:45 - Imaging Radiologist's impression: ITS Impressions Head CT 08/01/24 16:25 IMPRESSION: No acute intracranial abnormality. Electronically signed by: Vern Plummer MD 08/01/2024 04:55 PM EST RP Brain MRI 08/02/24 12:45 IMPRESSION: 1. Numerous tiny enhancing brain metastases involving the bilateral frontal lobes, left parietal lobe, left greater than right temporal lobes, and 2 in the posterior fossa. Largest is in superior left frontal gyrus measuring 4 mm. These are accompanied by a tiny amount of T2 prolongation. 2. Otherwise, no evidence of intracranial hemorrhage, acute infarction, gross mass effect or significant edema. 3. Small mastoid effusions. 4. There is a 9 mm left occipital lymph node. Electronically signed by: Vern Plummer MD 08/02/2024 02:11 PM EST RP Assessment and Plan Patient Active problem list reviewed?: Yes (1) Melanoma Problem details: Right thigh mass January 2024 biopsy March 2024 Soft tissue, right anterior upper thigh, biopsy: Melanoma, presumed metastatic. Status: Chronic Assessment and plan: 1. This is a 68-year-old male presenting with DeNovo metastatic melanoma, unknown primary site of disease. He presented with right groin lymphadenopathy measuring up to 3.8 x 4.2 cm. Biopsy of this on 02/08/2024 revealed metastatic melanoma. He was started on ipilimumab and nivolumab to be followed by nivolumab maintenance, in March 2024. He was admitted to [facility] on 05/27/2024 with complaints of headaches associated with nausea. CT head with contrast was negative. He developed a fever spike, lumbar puncture performed revealed clear, colorless fluid with elevated total protein of 54, WBC of 16 and glucose of 45. He tested negative for viral and bacterial meningitis. Cytology was negative. Presumed diagnosis was aseptic meningitis which is a rare but seroius adverse effect of immunotherapy. PET scan performed 06/20/2024 showed no abnormal FDG activity in the entire body, small lymph nodes in right groin, not active metabolically. He completed prednisone taper on 07/25/2024. He is now admitted with recurrent symptoms of headache, nausea emesis and fevers. A stat CT brain without contrast performed today was negative. I have recommended lumbar puncture to rule out infectious meningitis. Brain MRI with and without contrast performed today showed numerous tiny enhancing brain metastasis involving bilateral frontal, left parietal, right temporal lobe and posterior fossa. Largest measuring 4 mm. There is no significant edema or mass effect. Lumbar puncture was performed today. Above MRI findings do not explain his symptoms. Continue with antibiotics. Await LP results. Differential diagnosis is infectious meningitis versus recurrence of aseptic meningitis. - Time Spent With Patient Time Spent with Patient (in minutes): 10
[2024-08-02 15:49] LABS: Glucose CSF 89 mg/dL; Total Protein CSF 56.7 mg/dL (15-45)
[2024-08-02 15:58] LABS: CSF Appearance Clear, Colorless; CSF Tube # 1
[2024-08-02 16:08] LABS: Appearance CSF CLEAR; CSF Tube # 4; Color CSF COLORLESS
[2024-08-02 16:11] LABS: CSF Monos 86 %; Lymphocytes CSF 11 %; Neutrophils CSF 3 %; Red Blood Cell CSF 2 MM*3
[2024-08-02 16:14] LABS: White Blood Cell CSF 11 MM*3
[2024-08-02 16:58] LABS: Cryptococcus neoformans/gattii Not Detected (Not Detect.); Enterovirus Not Detected (Not Detect.); Escherichia coli K1 Not Detected (Not Detect.); Haemophilus influenzae Not Detected (Not Detect.); Herpes simplex virus 1 Not Detected (Not Detect.); Herpes simplex virus 2 Not Detected (Not Detect.); Human herpesvirus 6 Not Detected (Not Detect.); Human parechovirus Not Detected (Not Detect.); Listeria monocytogenes Not Detected (Not Detect.); Neisseria meningitidis Not Detected (Not Detect.); Streptococcus agalactiae Not Detected (Not Detect.); Streptococcus pneumoniae Not Detected (Not Detect.); Varicella zoster virus Not Detected (Not Detect.)
[2024-08-02 18:41] LABS: Vancomycin Random 11.5 mcg/mL (15-20)
[2024-08-02] MEDS: Enoxaparin Sodium 40 MG/0.4 ML SYRINGE SUBCUT (21:03)
[2024-08-02] MEDS: Atorvastatin Calcium 10 MG TABLET PO (21:03)
[2024-08-02] MEDS: vancomycin HCL 1,500 MG in 0.9 % Sodium Chloride 500 ML 333.33 MG IV (21:03)
[2024-08-02] MEDS: Acetaminophen 325 MG TABLET 650 MG PO (21:10)
[2024-08-03] VITALS: BP 120/65; PULSE 68; RESP 18; TEMP 36.7; O2SAT 99
[2024-08-03] MEDS: Hydrocortisone Sod Succ/PF 100 MG VIAL IVPUSH ×3 (00:39→16:30)
[2024-08-03] MEDS: ACYCLOVIR SODIUM IV ×2 (03:24→12:38)
[2024-08-03] MEDS: SODIUM CHLORIDE 0.9% IV ×2 (03:24→12:38)
[2024-08-03] MEDS: Lactated Ringers 1,000 ML 75 ML IVCONT (03:43)
[2024-08-03 08:00] VITALS: BP 156/80; PULSE 83; RESP 19; TEMP 37; O2SAT 98
[2024-08-03 08:09] LABS: MANUAL DIFF FLAG NO
[2024-08-03 08:13] LABS: Basophils Percent Auto 0.3 % (0-2); Hematocrit 27.4 % (42.0-52.0); Hemoglobin 9.3 g/dl (14.0-18.0); Imm Gran Abs Auto 0.06 X10*3/uL (0.00-0.03); Imm Gran Pct Auto 0.6 % (0.0-0.4); Lymphocytes Absolute Auto 0.8 X10*3/uL (1.2-4.9); Lymphocytes Percent Auto 8.2 % (20-40); Mean Corpuscular HGB Conc 33.9 g/dl (31.0-36.0); Mean Corpuscular Hemoglobin 29.4 pg (27.0-33.0); Mean Corpuscular Volume 86.7 fL (80.0-98.0); Mean Platelet Volume 9.1 fL (9.4-12.4); Monocytes Absolute Auto 0.5 X10*3/uL (0.1-1.2); Monocytes Percent Auto 5.3 % (2-11); Neutrophils Absolute Auto 8.1 x10*3/uL (2.0-8.3); Neutrophils Percent Auto 85.6 % (45-73); Platelet Count 216 X10*3/uL (160-400); Red Blood Count 3.16 X10*6/uL (4.60-5.80); Red Cell Distribution Width 14.5 % (11.0-16.0); White Blood Count 9.5 X10*3/uL (4.8-10.8)
[2024-08-03] MEDS: vancomycin HCL 1,500 MG in 0.9 % Sodium Chloride 500 ML 333 MG IV (08:13)
[2024-08-03] MEDS: Ascorbic Acid 500 MG TABLET 1000 MG PO (08:13)
[2024-08-03] MEDS: Metoprolol Succinate ER 25 MG TAB.ER.24H PO (08:13)
[2024-08-03] MEDS: Multivitamin TABLET 1 TAB PO (08:13)
[2024-08-03 08:25] LABS: Anion Gap 11 (12-20); Blood Urea Nitrogen 18 mg/dL (9-16); Calcium 8.4 mg/dL (8.4-10.2); Carbon Dioxide 27 mmol/L (22-29); Chloride 108 mmol/L (96-108); Creatinine Clr Calc Pharmacy 127.8; Estimated Glomerular Filt Rate > 60; Glucose Random 120 mg/dL (60-115); Potassium 3.7 mmol/L (3.3-5.1); Sodium 142 mmol/L (135-145)
[2024-08-03 08:27] LABS: Anion Gap 10 (12-20); Blood Urea Nitrogen 18 mg/dL (9-16); Calcium 8.4 mg/dL (8.4-10.2); Carbon Dioxide 27 mmol/L (22-29); Chloride 109 mmol/L (96-108); Creatinine Clr Calc Pharmacy 129.8; Estimated Glomerular Filt Rate > 60; Glucose Random 121 mg/dL (60-115); Potassium 3.7 mmol/L (3.3-5.1); Sodium 142 mmol/L (135-145)
[2024-08-03] MEDS: 0.9 % Sodium Chloride Flush 3 ML SYRINGE IVFLUSH ×2 (09:33→16:30)
[2024-08-03 12:00] VITALS: BP 148/81; PULSE 77; RESP 19; TEMP 36.6; O2SAT 97
--- NOTE | 2024-08-03 12:01 | P.PNIM_ITS ---
Subjective Subjective Date of Service: 08/03/24 Interval History: seen and evaluated this morning no fever last 48 hours weaned down to room air MRI done showing Metastasis became delerious overnight, improved this morning no other events Review of Systems Review of Systems: Yes all other systems are reviewed and are negative Physical Exam 2 Vital Signs: Vital Signs: Last Vital Signs Temp 98.6 F 08/03/24 08:00 Pulse 83 08/03/24 08:00 Resp 19 08/03/24 08:00 BP 156/80 H 08/03/24 08:00 Pulse Ox 98 08/03/24 08:00 O2 Del Method Room Air 08/03/24 08:00 O2 Flow Rate 2 08/03/24 00:00 BMI result Body Mass Index 32.2 Const: Other: General: AO X 3, no acute distress Resp: cecile rhonchi CVS: S1,S2,RRR GI: +BS, NT, no distention Skin: No rash Neuro: motor grossly intact, alert, oriented Psych: appropriate affect Objective Data Active Medications Acetaminophen (Acetaminophen 325 Mg Tablet) 650 mg PO Q6H PRN PRN Reason: Pain, Mild 1-3,fever,headache Last Admin: 08/02/24 21:10 Dose: 650 mg Documented By: DON Ascorbic Acid (Ascorbic Acid 500 Mg Tablet) 1,000 mg PO DAILY [facility] Last Admin: 08/03/24 08:13 Dose: 1,000 mg Documented By: JEANNINE Atorvastatin Calcium (Atorvastatin Calcium 10 Mg Tablet) 10 mg PO BEDTIME [facility] Last Admin: 08/02/24 21:03 Dose: 10 mg Documented By: DON Calcium Carbonate (Calcium Carbonate 750 Mg Tab.Chew) 750 mg PO Q4H PRN PRN Reason: Heartburn Ceftriaxone Sodium (Ceftriaxone Sodium 2 Gm Vial) 2 gm IVPUSH Q24H [facility] Last Admin: 08/02/24 15:19 Dose: 2 gm Documented By: RADHA Diphenhydramine HCl (Diphenhydramine Hcl 25 Mg Capsule) 25 mg PO BID PRN PRN Reason: Rash Enoxaparin Sodium (Enoxaparin Sodium 40 Mg/0.4 Ml Syringe) 40 mg SUBCUT Q24H [facility] Last Admin: 08/02/24 21:03 Dose: 40 mg Documented By: DON Hydrocortisone Sodium Succinate (Hydrocortisone Sod Succ/Pf 100 Mg Vial) 100 mg IVPUSH Q8H [facility] Last Admin: 08/03/24 08:15 Dose: 100 mg Documented By: JEANNINE Lactated Ringer's (Lr) 1,000 mls @ 75 mls/hr IVCONT .[id number] [facility] Last Admin: 08/03/24 03:43 Dose: 75 mls/hr Documented By: SERENA Acyclovir Sodium 820 mg/ (Sodium Chloride) 266.4 mls @ 266.4 mls/hr IV Q8H [facility] Last Infusion: 08/03/24 04:24 Dose: Infused Documented By: DON Vancomycin HCl 1,500 mg/ (Sodium Chloride) 500 mls @ 333.333 mls/hr IV Q12H [facility] Last Infusion: 08/03/24 09:44 Dose: Infused Documented By: JEANNINE Magnesium Hydroxide (Milk Of Magnesia 30 Ml Oral.Susp) 30 ml PO DAILY PRN PRN Reason: Constipation Melatonin (Melatonin 3 Mg Tablet) 6 mg PO BEDTIME PRN PRN Reason: Insomnia Metoprolol Succinate (Metoprolol Succinate Er 25 Mg Tab.Er.24h) 25 mg PO DAILY [facility]; Protocol Last Admin: 08/03/24 08:13 Dose: 25 mg Documented By: JEANNINE Multivitamins/Vitamin C (Multivitamin Tablet) 1 tab PO DAILY [facility] Last Admin: 08/03/24 08:13 Dose: 1 tab Documented By: JEANNINE Ondansetron HCl (Ondansetron Hcl 4 Mg/2 Ml Vial) 4 mg IVPUSH Q8H PRN PRN Reason: Nausea and Vomiting Last Admin: 08/01/24 04:48 Dose: 4 mg Documented By: ALFONSO Pharmacy Consult (Consult Rx Vancomycin Dosing) 1 each MISCELLANE DAILY PRN PRN Reason: Consult order Psyllium Hydrophilic Mucilloid (Psyllium Seed 3.7 Gm Packet) 3.7 gm PO BEDTIME [facility] Last Admin: 08/02/24 21:00 Dose: Not Given Documented By: DON Non-Admin Reason: Patient Refused Sodium Chloride (0.9 % Sodium Chloride Flush 3 Ml Syringe) 3 ml IVFLUSH QSHIFT [facility] Last Admin: 08/03/24 09:33 Dose: 3 ml Documented By: HO.DOUBLEN Labs 08/03/24 07:28 08/03/24 07:28 Labs: Laboratory Results - last 24 hr 08/02/24 08/02/24 08/02/24 14:35 14:35 18:02 MCV MCH MCHC RDW Plt Count MPV Immature Gran % (Auto) Neut % (Auto) Lymph % (Auto) [place] % (Auto) Eos % (Auto) Baso % (Auto) Lymph # (Auto) [place] # (Auto) Eos # (Auto) Baso # (Auto) Abs Immat Gran (auto) Absolute Neuts (auto) Absolute Nucleated RBC Nucleated RBC % (auto) Anion Gap Estim Creat Clear Calc Estimated GFR Random Glucose Calcium CSF Tube Number 1 4 CSF Volume 2.0 CSF Appearance CLEAR CSF Color COLORLESS CSF WBC 11 H* CSF RBC 2 CSF Neutrophils 3 CSF Lymphocytes 11 CSF Monocytes % 86 CSF Appearance (b) Clear, Colorless CSF Glucose 89 CSF Total Protein 56.7 H CSF C.neoform/gat PCR Not Detected CSF CMV DNA (PCR) Not Detected CSF Enterovirus (PCR) Not Detected CSF E. coli K1 (PCR) Not Detected CSF H. influenzae (PCR) Not Detected CSF HSV I (PCR) Not Detected CSF HSV II (PCR) Not Detected CSF HHV 6 (PCR) Not Detected CSF L.monocytogenes PCR Not Detected CSF N. meningitidis PCR Not Detected CSF Parechovirus (PCR) Not Detected CSF S. agalactiae (PCR) Not Detected CSF S. pneumoniae (PCR) Not Detected CSF VZV (PCR) Not Detected Random Vancomycin 11.5 L 08/03/24 08/03/24 08/03/24 07:28 07:28 07:28 MCV 86.7 MCH 29.4 MCHC 33.9 RDW 14.5 Plt Count 216 MPV 9.1 L Immature Gran % (Auto) 0.6 H Neut % (Auto) 85.6 H Lymph % (Auto) 8.2 L [place] % (Auto) 5.3 Eos % (Auto) 0.0 Baso % (Auto) 0.3 Lymph # (Auto) 0.8 L [place] # (Auto) 0.5 Eos # (Auto) 0.0 Baso # (Auto) 0.0 Abs Immat Gran (auto) 0.06 H Absolute Neuts (auto) 8.1 Absolute Nucleated RBC 0.000 Nucleated RBC % (auto) 0.0 Anion Gap 11 L 10 L Estim Creat Clear Calc 127.8 129.8 Estimated GFR > 60 Random Glucose Calcium CSF Tube Number CSF Volume CSF Appearance CSF Color CSF WBC CSF RBC CSF Neutrophils CSF Lymphocytes CSF Monocytes % CSF Appearance (b) CSF Glucose CSF Total Protein CSF C.neoform/gat PCR CSF CMV DNA (PCR) CSF Enterovirus (PCR) CSF E. coli K1 (PCR) CSF H. influenzae (PCR) CSF HSV I (PCR) CSF HSV II (PCR) CSF HHV 6 (PCR) CSF L.monocytogenes PCR CSF N. meningitidis PCR CSF Parechovirus (PCR) CSF S. agalactiae (PCR) CSF S. pneumoniae (PCR) CSF VZV (PCR) Random Vancomycin 08/03/24 08/03/24 08/03/24 07:28 07:28 07:28 MCV MCH MCHC RDW Plt Count MPV Immature Gran % (Auto) Neut % (Auto) Lymph % (Auto) [place] % (Auto) Eos % (Auto) Baso % (Auto) Lymph # (Auto) [place] # (Auto) Eos # (Auto) Baso # (Auto) Abs Immat Gran (auto) Absolute Neuts (auto) Absolute Nucleated RBC Nucleated RBC % (auto) Anion Gap Estim Creat Clear Calc Estimated GFR > 60 Random Glucose 120 H 121 H Calcium 8.4 8.4 CSF Tube Number CSF Volume CSF Appearance CSF Color CSF WBC CSF RBC CSF Neutrophils CSF Lymphocytes CSF Monocytes % CSF Appearance (b) CSF Glucose CSF Total Protein CSF C.neoform/gat PCR CSF CMV DNA (PCR) CSF Enterovirus (PCR) CSF E. coli K1 (PCR) CSF H. influenzae (PCR) CSF HSV I (PCR) CSF HSV II (PCR) CSF HHV 6 (PCR) CSF L.monocytogenes PCR CSF N. meningitidis PCR CSF Parechovirus (PCR) CSF S. agalactiae (PCR) CSF S. pneumoniae (PCR) CSF VZV (PCR) Random Vancomycin Microbiology Microbiology Results: Microbiology 08/02/24 14:35 Gram Stain - Final Cerebrospinal Fluid CSF Examination - Final Fluid Description - Final CSF Culture - Preliminary No growth after 1 day 08/01/24 15:18 Blood Culture - Preliminary Blood - Venous No growth after 24 hours. 08/01/24 15:18 Blood Culture - Preliminary Blood - Venous No growth after 24 hours. Assessment and Plan (1) Atrial flutter with rapid ventricular response: Status: Acute (2) CAP (community acquired pneumonia): Status: Acute (3) Acute respiratory failure with hypoxia: Status: Acute (4) Sepsis: Status: Acute (5) Metastasis to brain: Status: Acute Plan 68-year-old male with a past medical history significant for prostate cancer s/p radical prostatectomy, nephrolithiasis, OA, HLD, HTN, metastatic melanoma (L groin) receiving chemotherapy with Dr. Smalls, history DVT and recent admission in May for aseptic meningitis, presents vomiting and headache. Acute hypoxic respiratory failure and sepsis secondary to community-acquired pneumonia, suspect aspiration pneumonia Continue Abx Negative respiratory panel weaned off toelrated Cultures negative Pulm input appreciated Headaches, fever, confusion. Has history of aseptic meningtitis likely related to immunotherapy repeat LP, showing no signs of infection MRI w\wo contrast showing brain mets continue Acyclovir, Vancomycin and Ceftriaxone ID consult to decide on the need of antibiotics given the new findings of LP and MRI Transient A flutter rate conrolled echo >70% hyperdynamic cardiology consult, start Toprol 25 mg XL Hold on anticoagulation, consider if recur HLD continue home meds HTN continue home meds Prostate cancer s/p radical prostatectomy Metastatic melanoma followed by Dr. Smalls receiving immunotherapy, possible complication include asceptic mengingt. History DVT not on any anticoagulation Full code VTE prophylaxis: Lovenox The paitent will need overnight stay for treatment of delerium, confusion, fever with new findings of Mets to brain pending ID evaluation Quality Stroke Does the patient have a stroke diagnosis?: No VTE Prior VTE?: No VTE Risk Level:: Medical - moderate - high VTE Device Contraindication: Treatment Not Indicated VTE Drug Contraindication: N/A - Med Ordered
--- NOTE | 2024-08-03 14:02 | W.PM.IDCN ---
History of Present Illness Data of Consult Service Date: 08/03/24 Requesting physician: Tarah West Primary Care Provider: Raghu Contreras MD [facility] Reason for consult: aseptic meningitis He presents with fever,frontal headache and vomiting,severe day of admission. He had LP and meningitis/encephalitis panel negative. He has metastatic melanoma and appears as mets on MRI brain. He had similar presntation 05/30/2024 and WBC CSF and negative panel. He has prostate ca,metastatic melanoma with left groin disease. He is on immune checkpoint inhibitor Review of Systems Review of Systems: Yes all other systems are reviewed and are negative [facility] Past Medical History Medical History PSA elevation Overweight (BMI 25.0-29.9) Finger fracture, right Nephrolithiasis Osteoarthritis Hypercholesterolemia Hypertension Family History Family History Mother Bladder cancer Father Prostate cancer Family history: reviewed and not pertinent Surgical History Surgical History History of tonsillectomy Social History Social History Household Members: None Housing: House Do you presently have visiting nurse or other home services: No Alcohol intake: former Patient Tobacco Use Status: Never used Tobacco e-Cigarette/Vaping Use: Never Used Second Hand Smoke Exposure: No Advance Directives Date on File: 09/22/22 service: No Current occupational status: employed Sexual orientation: Straight/Heterosexual Gender identity: Male Cognitive needs: No Hearing needs: No Vision needs: Yes Meds Allergies Allergy/AdvReac Type Severity Reaction Status Date / Time No Known Allergies Allergy Verified 07/30/24 17:16 Active Medications: Current Medications Acetaminophen (Acetaminophen 325 Mg Tablet) 650 mg PO Q6H PRN PRN Reason: Pain, Mild 1-3,fever,headache Last Admin: 08/02/24 21:10 Dose: 650 mg Ascorbic Acid (Ascorbic Acid 500 Mg Tablet) 1,000 mg PO DAILY [facility] Last Admin: 08/03/24 08:13 Dose: 1,000 mg Atorvastatin Calcium (Atorvastatin Calcium 10 Mg Tablet) 10 mg PO BEDTIME [facility] Last Admin: 08/02/24 21:03 Dose: 10 mg Calcium Carbonate (Calcium Carbonate 750 Mg Tab.Chew) 750 mg PO Q4H PRN PRN Reason: Heartburn Ceftriaxone Sodium (Ceftriaxone Sodium 2 Gm Vial) 2 gm IVPUSH Q24H [facility] Last Admin: 08/02/24 15:19 Dose: 2 gm Diphenhydramine HCl (Diphenhydramine Hcl 25 Mg Capsule) 25 mg PO BID PRN PRN Reason: Rash Enoxaparin Sodium (Enoxaparin Sodium 40 Mg/0.4 Ml Syringe) 40 mg SUBCUT Q24H [facility] Last Admin: 08/02/24 21:03 Dose: 40 mg Hydrocortisone Sodium Succinate (Hydrocortisone Sod Succ/Pf 100 Mg Vial) 100 mg IVPUSH Q8H [facility] Last Admin: 08/03/24 08:15 Dose: 100 mg Lactated Ringer's (Lr) 1,000 mls @ 75 mls/hr IVCONT .[id number] [facility] Last Admin: 08/03/24 03:43 Dose: 75 mls/hr Vancomycin HCl 1,500 mg/ (Sodium Chloride) 500 mls @ 333.333 mls/hr IV Q12H [facility] Last Infusion: 08/03/24 09:44 Dose: Infused Acyclovir Sodium 820 mg/ (Sodium Chloride) 266.4 mls @ 266.4 mls/hr IV Q8H [facility] Magnesium Hydroxide (Milk Of Magnesia 30 Ml Oral.Susp) 30 ml PO DAILY PRN PRN Reason: Constipation Melatonin (Melatonin 3 Mg Tablet) 6 mg PO BEDTIME PRN PRN Reason: Insomnia Metoprolol Succinate (Metoprolol Succinate Er 25 Mg Tab.Er.24h) 25 mg PO DAILY [facility]; Protocol Last Admin: 08/03/24 08:13 Dose: 25 mg Multivitamins/Vitamin C (Multivitamin Tablet) 1 tab PO DAILY [facility] Last Admin: 08/03/24 08:13 Dose: 1 tab Ondansetron HCl (Ondansetron Hcl 4 Mg/2 Ml Vial) 4 mg IVPUSH Q8H PRN PRN Reason: Nausea and Vomiting Last Admin: 08/01/24 04:48 Dose: 4 mg Pharmacy Consult (Consult Rx Vancomycin Dosing) 1 each MISCELLANE DAILY PRN PRN Reason: Consult order Psyllium Hydrophilic Mucilloid (Psyllium Seed 3.7 Gm Packet) 3.7 gm PO BEDTIME [facility] Last Admin: 08/02/24 21:00 Dose: Not Given Sodium Chloride (0.9 % Sodium Chloride Flush 3 Ml Syringe) 3 ml IVFLUSH QSHIFT [facility] Last Admin: 08/03/24 09:33 Dose: 3 ml Home Medications ?Medication ?Instructions ?Recorded ?Confirmed ?Last Taken ?Type ascorbic acid (vitamin C) 1,000 mg 1 g PO DAILY 05/21/20 07/31/24 07/29/24 History tablet multivitamin-ferrous 1 tab PO DAILY 05/21/20 07/31/24 07/29/24 History fumarate-folic acid 18 mg-400 mcg tablet (Centrum) omega-3 fatty acids 1,000 mg 1,000 mg PO DAILY 05/21/20 07/31/24 07/29/24 History capsule acetaminophen 500 mg tablet 1,000 mg PO Q6H PRN Headache 05/26/24 07/31/24 Unknown History (Acetaminophen Extra Strength) diphenhydramine HCl 25 mg tablet 25 mg PO BID PRN Rash 05/27/24 07/31/24 Unknown History (Benadryl Allergy) fzdzqhb-ffkounomxuvoy-mvjuakuv 250 1 tab PO Q4-6H PRN Headache 07/31/24 07/31/24 07/29/24 History mg-250 mg-65 mg tablet (Excedrin Migraine) psyllium husk 0.4 gram capsule 0.4 g PO BEDTIME 07/31/24 07/31/24 07/29/24 History (Fiber (psyllium husk)) Physical Exam Vital Signs: Vital Signs: Last Vital Signs Temp 97.8 F 08/03/24 12:00 Pulse 77 08/03/24 12:00 Resp 19 08/03/24 12:00 BP 148/81 H 08/03/24 12:00 Pulse Ox 97 08/03/24 12:00 O2 Del Method Room Air 08/03/24 08:00 O2 Flow Rate 2 08/03/24 00:00 BMI result Body Mass Index 32.2 Const: General: cooperative HEENT: Head: Yes normal to inspection Face and sinus: Yes normal facial exam Mouth: Normal oral and palatal mucosa present Teeth and gingiva: dentition normal Eyes: General: appearance normal, both eyes and all related structures Pupils: Equal, round and reactive pupils present Resp: Effort & Inspection: normal respiratory effort Cardio: Rate: regular rate Rhythm: regular rhythm GI: Palpation (GI): Soft to palpation and nontender : General: Yes no CVA tenderness Back/Spine/Pelvis: Back: no CVA tenderness Skin: General skin exam: no rashes or lesions noted Neuro: General: moves all extremities Cranial nerves: Yes Equal, round and reactive pupils present Extrem: Other: some left groin LN Psych: Appearance: grossly normal Results Labs 08/03/24 07:28 08/03/24 07:28 Labs: Short CBC 08/03/24 Range/Units 07:28 WBC 9.5 (4.8-10.8) X10*3/uL Hgb 9.3 L (14.0-18.0) g/dl Hct 27.4 L (42.0-52.0) % Plt Count 216 (160-400) X10*3/uL BMP 08/03/24 08/03/24 08/03/24 07:28 07:28 07:28 Sodium 142 142 Potassium 3.7 3.7 Chloride 108 Carbon Dioxide BUN Creatinine Calcium 08/03/24 08/03/24 08/03/24 07:28 07:28 07:28 Sodium Potassium Chloride 109 H Carbon Dioxide 27 27 BUN 18 H 18 H Creatinine 0.65 Calcium 08/03/24 08/03/24 07:28 07:28 Sodium Potassium Chloride Carbon Dioxide BUN Creatinine 0.64 Calcium 8.4 8.4 Microbiology Microbiology Results: Microbiology 08/02/24 14:35 Cerebrospinal Fluid Gram Stain - Final 08/02/24 14:35 Cerebrospinal Fluid CSF Examination - Final 08/02/24 14:35 Cerebrospinal Fluid Fluid Description - Final 08/02/24 14:35 Cerebrospinal Fluid CSF Culture - Preliminary No growth after 1 day 08/01/24 15:18 Blood - Venous Blood Culture - Preliminary No growth after 24 hours. 08/01/24 15:18 Blood - Venous Blood Culture - Preliminary No growth after 24 hours. 07/30/24 18:07 Blood - Venous Blood Culture - Preliminary No growth after 48 hours. 07/30/24 17:47 Blood - Venous Blood Culture - Preliminary No growth after 48 hours. Assessment and Plan (1) Metastasis to brain: Status: Acute (2) Aseptic meningitis: Status: Acute Plan Recurrent aseptic meningitis. This is likely due to maligancy or immune checkpoint inhibitor. There is no signs of bacterial or viral treatable meningitis There are no signs of pneumonia at this time. Would stop Ceftriaxone,Acyclovir,Vancomycin at this time. Follow Oncology.
[2024-08-03] MEDS: cefTRIAXone sodium 2 GM VIAL IVPUSH (15:00)
[2024-08-03 16:16] VITALS: BP 154/77; PULSE 86; RESP 18; TEMP 36.8; O2SAT 96
[2024-08-03 17:39] LABS: C Reactive Protein 2.95 mg/dL (< or = 0.50)
[2024-08-03 17:55] LABS: Ferritin 194 ng/mL (20-250)
[2024-08-03 17:57] LABS: CDiff Gene PCR NEGATIVE (Negative)
[2024-08-03 18:26] LABS: Leukocytes Stool Qualitative NEGATIVE (NEGATIVE)
[2024-08-03 19:19] VITALS: BP 149/77; PULSE 80; RESP 20; TEMP 36.6; O2SAT 100
[2024-08-03] MEDS: Atorvastatin Calcium 10 MG TABLET PO (20:50)
[2024-08-03] MEDS: Enoxaparin Sodium 40 MG/0.4 ML SYRINGE SUBCUT (20:50)
[2024-08-03 23:46] VITALS: BP 135/65; PULSE 82; RESP 20; TEMP 36.9; O2SAT 98
[2024-08-04] VITALS (8 sets, daily range): BP systolic 133–159; BP diastolic 68–84; PULSE 65–76; RESP 16–20; TEMP 36.3–36.9; O2SAT 96–99
[2024-08-04] MEDS: 0.9 % Sodium Chloride Flush 3 ML SYRINGE IVFLUSH ×4 (01:21→21:18)
[2024-08-04] MEDS: Hydrocortisone Sod Succ/PF 100 MG VIAL IVPUSH ×2 (01:21→08:16)
[2024-08-04 07:09] LABS: Hematocrit 27.7 % (42.0-52.0); Hemoglobin 9.3 g/dl (14.0-18.0); Mean Corpuscular HGB Conc 33.6 g/dl (31.0-36.0); Mean Corpuscular Hemoglobin 29.5 pg (27.0-33.0); Mean Corpuscular Volume 87.9 fL (80.0-98.0); Mean Platelet Volume 8.8 fL (9.4-12.4); Platelet Count 213 X10*3/uL (160-400); Red Blood Count 3.15 X10*6/uL (4.60-5.80); Red Cell Distribution Width 15.2 % (11.0-16.0); White Blood Count 9.4 X10*3/uL (4.8-10.8)
[2024-08-04 07:36] LABS: Anion Gap 12 (12-20); Blood Urea Nitrogen 17 mg/dL (9-16); Calcium 8.6 mg/dL (8.4-10.2); Carbon Dioxide 25 mmol/L (22-29); Chloride 110 mmol/L (96-108); Creatinine Clr Calc Pharmacy 136.2; Estimated Glomerular Filt Rate > 60; Glucose Random 126 mg/dL (60-115); Potassium 3.6 mmol/L (3.3-5.1); Sodium 143 mmol/L (135-145)
[2024-08-04 07:55] LABS: Erythrocyte Sedimentation Rate 40 MM/HR (0-15)
[2024-08-04] MEDS: Metoprolol Succinate ER 25 MG TAB.ER.24H PO (08:16)
[2024-08-04] MEDS: Ascorbic Acid 500 MG TABLET 1000 MG PO (08:16)
[2024-08-04] MEDS: Multivitamin TABLET 1 TAB PO (08:16)
[2024-08-04 10:56] LABS: Adenovirus F 40/41 Not Detected (Not Detect.); Astrovirus Not Detected (Not Detect.); Campylobacter Not Detected (Not Detect.); Cryptosporidium Not Detected (Not Detect.); Cyclospora cayetanensis Not Detected (Not Detect.); E. coli EAEC Not Detected (Not Detect.); E. coli EPEC Not Detected (Not Detect.); E. coli ETEC Not Detected (Not Detect.); E. coli STEC Not Detected (Not Detect.); Entamoeba histolytica Not Detected (Not Detect.); Giardia lamblia Not Detected (Not Detect.); Norovirus GI/GII Not Detected (Not Detect.); Plesiomonas shigelloides Not Detected (Not Detect.); Rotavirus A Not Detected (Not Detect.); Salmonella Not Detected (Not Detect.); Sapovirus Not Detected (Not Detect.); Shigella sp./EIEC Not Detected (Not Detect.); Vibrio Not Detected (Not Detect.); Vibrio Cholerae Not Detected (Not Detect.); Yersinia enterocolitica Not Detected (Not Detect.)
--- NOTE | 2024-08-04 11:31 | P.PNHO-ONC_ITS ---
Medical Summary - Medical Summary Date of Service: 08/04/24 Chief complaint: Weaknes Primary Care Provider: Raghu Contreras MD Medical Summary: Diagnosis: De bassem metastatic melanoma 02/2024 Past medical history of prostate cancer, status post radical prostatectomy presenting. He was seen by surgeon in December with a 2 month history of right groin mass, he had no symptoms of pain, loss of appetite or weight loss. Pelvic MRI with contrast on 01/31/2024 revealed right inguinal lymphadenopathy measuring up to 3.8 x 4.2 cm with surrounding tissue stranding concerning for metastatic disease. On 02/08/2024 he had biopsy of this mass which revealed metastatic melanoma. Immunostains histochemical stains reactive with Decker-1, HMB45, SOX 1, PRAME. Patient was never treated for melanoma. PET scan performed at [facility] on 03/02/2024 revealed metabolically active retroperitoneal lymph nodes along the aorta with SUV 13.2, FDG avid left common iliac nodes SUV max 15.2, FDG active right external iliac and right inguinal lymph nodes SUV max up to 17.9. FDG avid scattered mediastinal lymph nodes with SUV max up to 4.9. CT chest/abdomen and pelvis revealed bulky right inguinal, right external and internal iliac lymphadenopathy, para-aortic retroperitoneal lymphadenopathy consistent with metastatic adelaida disease. Incompletely imaged bulky right inguinal and femoral lymphadenopathy, largest lymph node measuring 5.9 x 4.2 cm. Bony metastasis in L4, L5, S1 and S2. Fatty infiltration of liver. 1 cm enhancing splenic nodules suspicious. In the chest there were suspicious right upper lobe nodule, mediastinal lymphadenopathy measuring up to 1.7 cm. Brain MRI showed no evidence of metastatic disease. He was started on ipilimumab and nivolumab followed by nivolumab maintenance, in March 2024. Stat right lower extremity Doppler was negative for DVT. Enlarged inguinal lymph nodes seen in the groin measuring up to 7.4 x 5.6 cm which is probably the cause of his right leg swelling. 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 Patient was admitted in May for aseptic meningitis. He was tapered off a long course of steroids on 07/25/2023. He was doing well when he was seen in Hematology/Oncology Clinic on 07/28/2023. However on Wednesday morning he had mild headache this seemed to have progressed overnight and by Wednesday morning he had thrown up. His brother did not hear from him on Wednesday but apparently the neighbors asked for a well check because patient did not come out to clear the snow. Ambulance was called by the police on Wednesday as patient was confused. As per chart review, patient felt chills but did not actually check his temperature at home. In the emergency room he had a temperature of 102.8 degrees F. blood cultures so far are negative. He had a CT angiogram because of hypoxia, this was negative for PE. He was started on ceftriaxone and azithromycin for presumed pneumonia. Patient continued to feel poorly in the last 2 days. He continues to have fever. COVID/flu/RSV was negative. Patient is feeling better today. He had episode of confusion 2 nights ago. He is thinking of short-term rehab before going home. Review of Systems - Neurologic Reports no additional neurologic complaints, Reports as per HPI, Denies confusion, Denies syncope, Reports headache(s), Denies memory loss, Denies numbness, Denies seizure-like activity, Denies tingling, Reports weakness PMFSH Medical History: Medical History (Last Reviewed 08/04/24 @ 08:45 by Adry Astudillo PT) Finger fracture, right Hypercholesterolemia Hypertension Nephrolithiasis Osteoarthritis Overweight (BMI 25.0-29.9) PSA elevation Functional capacity: independent ambulation Family History: Family History (Last Reviewed 08/03/24 @ 14:05 by Swetha Kathleen MD) Mother Bladder cancer Father Prostate cancer Family history: reviewed and not pertinent Surgical History: Surgical History (Last Reviewed 08/04/24 @ 08:45 by Adry Astudillo PT) History of tonsillectomy Social History: Social History (Last Reviewed 08/03/24 @ 14:05 by Swetha Kathleen MD) Living Situation History: Household Members: None Housing: House Do you presently have visiting nurse or other home services: No Tobacco History: Patient Tobacco Use Status: Never used Tobacco e-Cigarette/Vaping Use: Never Used Second Hand Smoke Exposure: No Advance Directives: Advance Directives Date on File: 09/22/22 Occupation Assessmet: service: No Current occupational status: employed Sex/Gender Assessment: Sexual orientation: Straight/Heterosexual Gender identity: Male Home Medications and Allergies Current Medications: Current Medications Acetaminophen (Acetaminophen 325 Mg Tablet) 650 mg PO Q6H PRN PRN Reason: Pain, Mild 1-3,fever,headache Last Admin: 08/02/24 21:10 Dose: 650 mg Ascorbic Acid (Ascorbic Acid 500 Mg Tablet) 1,000 mg PO DAILY [facility] Last Admin: 08/04/24 08:16 Dose: 1,000 mg Atorvastatin Calcium (Atorvastatin Calcium 10 Mg Tablet) 10 mg PO BEDTIME [facility] Last Admin: 08/03/24 20:50 Dose: 10 mg Calcium Carbonate (Calcium Carbonate 750 Mg Tab.Chew) 750 mg PO Q4H PRN PRN Reason: Heartburn Diphenhydramine HCl (Diphenhydramine Hcl 25 Mg Capsule) 25 mg PO BID PRN PRN Reason: Rash Enoxaparin Sodium (Enoxaparin Sodium 40 Mg/0.4 Ml Syringe) 40 mg SUBCUT Q24H [facility] Last Admin: 08/03/24 20:50 Dose: 40 mg Loperamide HCl (Loperamide Hcl 2 Mg Capsule) 2 mg PO Q4H PRN PRN Reason: Diarrhea Magnesium Hydroxide (Milk Of Magnesia 30 Ml Oral.Susp) 30 ml PO DAILY PRN PRN Reason: Constipation Melatonin (Melatonin 3 Mg Tablet) 6 mg PO BEDTIME PRN PRN Reason: Insomnia Methylprednisolone Sodium Succinate (Methylprednisolone Sod Succ 40 Mg/Ml Vial) 100 mg IVPUSH Q24H [facility] Last Admin: 08/04/24 10:23 Dose: 100 mg Metoprolol Succinate (Metoprolol Succinate Er 25 Mg Tab.Er.24h) 25 mg PO DAILY [facility]; Protocol Last Admin: 08/04/24 08:16 Dose: 25 mg Multivitamins/Vitamin C (Multivitamin Tablet) 1 tab PO DAILY [facility] Last Admin: 08/04/24 08:16 Dose: 1 tab Ondansetron HCl (Ondansetron Hcl 4 Mg/2 Ml Vial) 4 mg IVPUSH Q8H PRN PRN Reason: Nausea and Vomiting Last Admin: 08/01/24 04:48 Dose: 4 mg Psyllium Hydrophilic Mucilloid (Psyllium Seed 3.7 Gm Packet) 3.7 gm PO BEDTIME [facility] Last Admin: 08/03/24 21:00 Dose: Not Given Sodium Chloride (0.9 % Sodium Chloride Flush 3 Ml Syringe) 3 ml IVFLUSH QSHIFT [facility] Last Admin: 08/04/24 08:15 Dose: 3 ml Home Medications ?Medication ?Instructions ?Recorded ?Confirmed ?Type ascorbic acid (vitamin C) 1,000 mg 1 g PO DAILY 05/21/20 07/31/24 History tablet multivitamin-ferrous 1 tab PO DAILY 05/21/20 07/31/24 History fumarate-folic acid 18 mg-400 mcg tablet (Centrum) omega-3 fatty acids 1,000 mg 1,000 mg PO DAILY 05/21/20 07/31/24 History capsule acetaminophen 500 mg tablet 1,000 mg PO Q6H PRN Headache 05/26/24 07/31/24 History (Acetaminophen Extra Strength) diphenhydramine HCl 25 mg tablet 25 mg PO BID PRN Rash 05/27/24 07/31/24 History (Benadryl Allergy) gjrysbr-cmfvrzxvarfcc-zxxtwtdt 250 1 tab PO Q4-6H PRN Headache 07/31/24 07/31/24 History mg-250 mg-65 mg tablet (Excedrin Migraine) psyllium husk 0.4 gram capsule 0.4 g PO BEDTIME 07/31/24 07/31/24 History (Fiber (psyllium husk)) Allergies Allergy/AdvReac Type Severity Reaction Status Date / Time No Known Allergies Allergy Verified 07/30/24 17:16 Exam Vital signs: Vital Signs Temp 98.3 F 08/04/24 11:03 Pulse 76 08/04/24 11:03 Resp 16 08/04/24 11:03 BP 144/78 H 08/04/24 11:03 Pulse Ox 97 08/04/24 11:03 O2 Del Method Room Air 08/04/24 11:03 O2 Flow Rate 2 08/04/24 03:20 Intake & Output 08/03/24 08/04/24 08/04/24 18:59 06:59 18:59 Intake Total 1976.65 / 2937.65 960 / 2937.65 Output Total 200 / 201 Balance 1975.65 / 2736.65 760 / 2736.65 Urine Output (Average ml/kg/hr) 0.17 0.17 Intake: Intake, Oral Amount 360 / 1320 960 / 1320 Intake, IV Amount 1617.65 / 1617.65 Acyclovir Sodium 820 mg In 0.9 266.4 / 266.4 % Sodium Chloride 250 ml @ 266. 4 mls/hr IV Q8H [facility] Rx#: [id number] vancomycin HCL 1,500 mg In 0.9 500 / 500 % Sodium Chloride 500 ml @ 333. 333 mls/hr IV Q12H [facility] Rx#: [id number] Lactated Ringers 1,000 ml @ 75 851.25 / 851.25 mls/hr IVCONT .[id number] [facility] Rx#: [id number] Output: Output, Urine Amount 200 / 200 Output, Urine/Stool Mix Amount / Other: Meal Refused No NPO No Breakfast % Eaten 50% Lunch % Eaten 50% Dinner % Eaten 100% Eating (Feeding) Ability Independent Number of Unmeasured Voids 1 2 Number of Bowel Movements 2 2 Urine Bedside Commode Urine Color Yellow Last Bowel Movement 08/03/24 08/03/24 08/04/24 Stool Bedside Commode Bedside Commode Stool Amount Small Moderate Stool Color Brown Brown Stool Consistency Semi Formed Weight 98.9 kg BMI result Body Mass Index 32.2 - Constitutional Present: mild distress, disheveled - Routine HEENT Exam Head: Present: atraumatic. Absent: facial swelling - Routine Respiratory Exam Present: CTAB. Absent: accessory muscle use - Routine Cardiovascular Exam Cardiovascular: Present: S1, S2 - Routine Abdominal Exam Present: soft - Routine Neurological Exam Present: alert, oriented X3, altered mental status Data - Labs CBC & Chem 7: 08/04/24 06:47 08/04/24 06:47 - Imaging Radiologist's impression: ITS Impressions Head CT 08/01/24 16:25 IMPRESSION: No acute intracranial abnormality. Electronically signed by: Vern Plummer MD 08/01/2024 04:55 [place] [facility] [place] 08/02/24 12:45 IMPRESSION: 1. Numerous tiny enhancing brain metastases involving the bilateral frontal lobes, left parietal lobe, left greater than right temporal lobes, and 2 in the posterior fossa. Largest is in superior left frontal gyrus measuring 4 mm. These are accompanied by a tiny amount of T2 prolongation. 2. Otherwise, no evidence of intracranial hemorrhage, acute infarction, gross mass effect or significant edema. 3. Small mastoid effusions. 4. There is a 9 mm left occipital lymph node. Electronically signed by: Vern Plummer MD 08/02/2024 02:11 PM EST RP Lumbar Puncture Fluoroscopy 08/02/24 14:50 IMPRESSION: Successful fluoroscopic guided lumbar puncture at L4-L5. This procedure was performed by Casey Canada PA-C and supervised by Dr. Plummer. Electronically signed by: Vern Plummer MD 08/03/2024 03:24 PM EST RP Assessment and Plan Patient Active problem list reviewed?: Yes (1) Melanoma Problem details: Right thigh mass January 2024 biopsy March 2024 Soft tissue, right anterior upper thigh, biopsy: Melanoma, presumed metastatic. Status: C hronic Assessment and plan: 1. This is a 68-year-old male presenting with DeNovo metastatic melanoma, unknown primary site of disease. He presented with right groin lymphadenopathy measuring up to 3.8 x 4.2 cm. Biopsy of this on 02/08/2024 revealed metastatic melanoma. He was started on ipilimumab and nivolumab to be followed by nivolumab maintenance, in March 2024. He was admitted to [facility] on 05/27/2024 with complaints of headaches associated with nausea. CT head with contrast was negative. He developed a fever spike, lumbar puncture performed revealed clear, colorless fluid with elevated total protein of 54, WBC of 16 and glucose of 45. He tested negative for viral and bacterial meningitis. Cytology was negative. Presumed diagnosis was aseptic meningitis which is a rare but seroius adverse effect of immunotherapy. PET scan performed 06/20/2024 showed no abnormal FDG activity in the entire body, small lymph nodes in right groin, not active metabolically. He completed prednisone taper on 07/25/2024. He is now admitted with recurrent symptoms of headache, nausea emesis and fevers. A stat CT brain without contrast performed today was negative. I have recommended lumbar puncture to rule out infectious meningitis. Brain MRI with and without contrast performed today showed numerous tiny enhancing brain metastasis involving bilateral frontal, left parietal, right temporal lobe and posterior fossa. Largest measuring 4 mm. There is no significant edema or mass effect. Lumbar puncture, CSF revealed WBC count of 11, lymphocytes with 86% monocytes. Protein elevated at 56.7 mg/dL. G stain revealed 1+ polys, no organisms. No growth after 2 days. This appears to be recurrence of aseptic meningitis. CSF fluid cytology was negative for malignancy. He will be started on high-dose steroids, IV methylprednisolone for a few days and then switched to prednisone 1 milligram/kilos daily with slow taper over next 3-4 months. He will be started on BRAF/MEK inhibitor for metastatic melanoma. He can be discharged to rehab and he can follow up oncology. Thank you. - Time Spent With Patient Time Spent with Patient (in minutes): 20 Additional Coding: - Additional E/M codes Complex E/M visit Add On: CPT G2211
--- NOTE | 2024-08-04 12:30 | P.CDIM_ITS ---
PROVIDER RESPONSE TEXT: To clarify, the appropriate diagnosis supported by the clinical indicators: Toxic metabolic QUERY TEXT: PHYSICIAN'S DOCUMENTATION REQUEST Date of Query: 08/03/2024 07:59 AM EST Patient Name: Jesús Vera Admit Date: 07/31/2024 Dear Tarah West MD, A review of the medical record indicates additional documentation may be needed. Please review below and update the documentation accordingly. Clinical Indicators: Pulmonology consultation note 08/02/24 - Hospital course significant for development of severe sepsis with encephalopathy requiring IV fluid resuscitation and associated hypoxemia requiring up to 6 L of supplement oxygen. Based on the above, please further specify, in the Progress Notes, the known or suspected type of the documented encephalopathy: Metabolic Septic Toxic Toxic metabolic Hypertensive Due to a specified condition (such as UTI, hyponatremia, CVA, etc.) After study, Encephalopathy is ruled out Other (explain) Clinically unable to determine (explain) Thank you, Jazmín Duarte, CCS, CDIS Use of terms such as suspected, likely, concern for, or probable (associated with a specific diagnosi s that is being evaluated, monitored, or treated as if it exists) are acceptable and can be coded in the inpatient se tting, when documented at the time of discharge. Please use your independent medical judgment in providing your response. THIS QUERY IS PART OF THE PERMANENT MEDICAL RECORD
[2024-08-04] MEDS: Benzonatate 100 MG CAPSULE 200 MG PO (12:39)
[2024-08-04] MEDS: methylPREDNISolone Sod Succ 40 MG/ML VIAL 100 MG IVPUSH (12:39)
--- NOTE | 2024-08-04 13:23 | P.PNIM_ITS ---
Subjective Subjective Date of Service: 08/04/24 Interval History: seen and evaluated this morning no fever last 48 hours weaned down to room air no other events Review of Systems Review of Systems: Yes all other systems are reviewed and are negative Physical Exam 2 Vital Signs: Vital Signs: Last Vital Signs Temp 98.3 F 08/04/24 11:03 Pulse 76 08/04/24 11:03 Resp 16 08/04/24 11:03 BP 144/78 H 08/04/24 11:03 Pulse Ox 97 08/04/24 11:03 O2 Del Method Room Air 08/04/24 11:03 O2 Flow Rate 2 08/04/24 03:20 BMI result Body Mass Index 32.2 Const: Other: General: AO X 3, no acute distress Resp: cecile rhonchi CVS: S1,S2,RRR GI: +BS, NT, no distention Skin: No rash Neuro: motor grossly intact, alert, oriented Psych: appropriate affect Objective Data Active Medications Acetaminophen (Acetaminophen 325 Mg Tablet) 650 mg PO Q6H PRN PRN Reason: Pain, Mild 1-3,fever,headache Last Admin: 08/02/24 21:10 Dose: 650 mg Documented By: DON Ascorbic Acid (Ascorbic Acid 500 Mg Tablet) 1,000 mg PO DAILY [facility] Last Admin: 08/04/24 08:16 Dose: 1,000 mg Documented By: LUCIANO Atorvastatin Calcium (Atorvastatin Calcium 10 Mg Tablet) 10 mg PO BEDTIME [facility] Last Admin: 08/03/24 20:50 Dose: 10 mg Documented By: ISIDRO Benzonatate (Benzonatate 100 Mg Capsule) 200 mg PO TID PRN PRN Reason: Cough Last Admin: 08/04/24 12:39 Dose: 200 mg Documented By: LUCIANO Calcium Carbonate (Calcium Carbonate 750 Mg Tab.Chew) 750 mg PO Q4H PRN PRN Reason: Heartburn Diphenhydramine HCl (Diphenhydramine Hcl 25 Mg Capsule) 25 mg PO BID PRN PRN Reason: Rash Enoxaparin Sodium (Enoxaparin Sodium 40 Mg/0.4 Ml Syringe) 40 mg SUBCUT Q24H [facility] Last Admin: 08/03/24 20:50 Dose: 40 mg Documented By: ISIDRO Loperamide HCl (Loperamide Hcl 2 Mg Capsule) 2 mg PO Q4H PRN PRN Reason: Diarrhea Magnesium Hydroxide (Milk Of Magnesia 30 Ml Oral.Susp) 30 ml PO DAILY PRN PRN Reason: Constipation Melatonin (Melatonin 3 Mg Tablet) 6 mg PO BEDTIME PRN PRN Reason: Insomnia Methylprednisolone Sodium Succinate (Methylprednisolone Sod Succ 40 Mg/Ml Vial) 100 mg IVPUSH Q24H [facility] Last Admin: 08/04/24 12:39 Dose: 100 mg Documented By: LUCIANO Metoprolol Succinate (Metoprolol Succinate Er 25 Mg Tab.Er.24h) 25 mg PO DAILY [facility]; Protocol Last Admin: 08/04/24 08:16 Dose: 25 mg Documented By: LUCIANO Multivitamins/Vitamin C (Multivitamin Tablet) 1 tab PO DAILY [facility] Last Admin: 08/04/24 08:16 Dose: 1 tab Documented By: LUCIANO Ondansetron HCl (Ondansetron Hcl 4 Mg/2 Ml Vial) 4 mg IVPUSH Q8H PRN PRN Reason: Nausea and Vomiting Last Admin: 08/01/24 04:48 Dose: 4 mg Documented By: ALFONSO Psyllium Hydrophilic Mucilloid (Psyllium Seed 3.7 Gm Packet) 3.7 gm PO BEDTIME [facility] Last Admin: 08/03/24 21:00 Dose: Not Given Documented By: ISIDRO Non-Admin Reason: pt reporting loose stools Sodium Chloride (0.9 % Sodium Chloride Flush 3 Ml Syringe) 3 ml IVFLUSH QSHIFT [facility] Last Admin: 08/04/24 08:15 Dose: 3 ml Documented By: LUCIANO Labs 08/04/24 06:47 08/04/24 06:47 Labs: Laboratory Results - last 24 hr 08/03/24 08/03/24 08/04/24 07:28 16:47 06:47 MCV 87.9 MCH 29.5 MCHC 33.6 RDW 15.2 Plt Count 213 MPV 8.8 L Absolute Nucleated RBC 0.000 Nucleated RBC % (auto) 0.0 ESR 40 H Anion Gap 12 Estim Creat Clear Calc 136.2 Estimated GFR > 60 Random Glucose 126 H Calcium 8.6 Ferritin 194 C-Reactive Protein 2.95 H Stool Leukocytes, Qual NEGATIVE Stl C. cayetanensis PCR Not Detected Stool Rotavirus A PCR Not Detected Stl Adenov F 40/41 PCR Not Detected Stool Astrovirus (PCR) Not Detected Stool Campylobacter PCR Not Detected Stool Cryptosporidium PCR Not Detected Stl Sh Tox Pr E STEC PCR Not Detected Stool E coli O157 PCR Not applicable Stl Enterotoxigenic E PCR Not Detected Stool EPEC (PCR) Not Detected Stool EAEC (PCR) Not Detected Stl E. histolytica PCR Not Detected Stool Giardia Lamblia PCR Not Detected Stl P. shigelloides PCR Not Detected Stool Salmonella PCR Not Detected Stool Sapovirus (PCR) Not Detected Stl Shigella/EIEC PCR Not Detected St Y.enterocolitica PCR Not Detected Stool Vibrio (PCR) Not Detected Stl Vibrio cholerae PCR Not Detected Stl Norovirus GI/GII PCR Not Detected C. difficile Tox B Gene NEGATIVE Microbiology Microbiology Results: Microbiology 08/02/24 14:35 Gram Stain - Final Cerebrospinal Fluid CSF Examination - Final Fluid Description - Final CSF Culture - Preliminary No growth after 2 days 08/01/24 15:18 Blood Culture - Preliminary Blood - Venous No growth after 48 hours. 08/01/24 15:18 Blood Culture - Preliminary Blood - Venous No growth after 48 hours. Assessment and Plan (1) Metastasis to brain: Status: Acute (2) Atrial flutter with rapid ventricular response: Status: Acute (3) Acute respiratory failure with hypoxia: Status: Acute (4) CAP (community acquired pneumonia): Status: Acute Plan 68-year-old male with a past medical history significant for prostate cancer s/p radical prostatectomy, nephrolithiasis, OA, HLD, HTN, metastatic melanoma (L groin) receiving chemotherapy with Dr. Smalls, history DVT and recent admission in May for aseptic meningitis, presents vomiting and headache. 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 Smalls receiving immunotherapy, possible complication include asceptic mengingt. History DVT not on any anticoagulation Full code VTE prophylaxis: Lovenox The patient will need overnight stay for treatment of delerium, confusion, fever with new findings of Mets to brain with IV Steroids pending improvement and outpatient discharge planning Quality Stroke Does the patient have a stroke diagnosis?: No VTE Prior VTE?: No VTE Risk Level:: Medical - moderate - high VTE Device Contraindication: Treatment Not Indicated VTE Drug Contraindication: N/A - Med Ordered
--- NOTE | 2024-08-04 15:06 | MHC.CM.PN ---
EMR reviewed and per MD rounds, pt is not medically cleared for discharge at this time. PT evaluated pt and recommend STR. This CM met with pt to discuss, and he is in agreement with going to STR. Pt states [facility], referral placed, awaiting bed offer. List of other local facilities printed from [employer] and given pt to review.
[2024-08-04] MEDS: Enoxaparin Sodium 40 MG/0.4 ML SYRINGE SUBCUT (21:18)
[2024-08-04] MEDS: Atorvastatin Calcium 10 MG TABLET PO (21:45)
[2024-08-05 03:25] VITALS: BP 141/80; PULSE 63; RESP 18; TEMP 36.4; O2SAT 98
[2024-08-05 07:39] LABS: MANUAL DIFF FLAG NO
[2024-08-05 07:41] LABS: Basophils Percent Auto 0.1 % (0-2); Hematocrit 27.4 % (42.0-52.0); Hemoglobin 9.4 g/dl (14.0-18.0); Imm Gran Abs Auto 0.14 X10*3/uL (0.00-0.03); Imm Gran Pct Auto 1.3 % (0.0-0.4); Lymphocytes Absolute Auto 1.5 X10*3/uL (1.2-4.9); Lymphocytes Percent Auto 13.6 % (20-40); Mean Corpuscular HGB Conc 34.3 g/dl (31.0-36.0); Mean Corpuscular Hemoglobin 30.5 pg (27.0-33.0); Mean Platelet Volume 9.2 fL (9.4-12.4); Monocytes Absolute Auto 0.9 X10*3/uL (0.1-1.2); Monocytes Percent Auto 8.6 % (2-11); NRBC Pct Auto 0.3 /100WBC (0.0-0.2); Neutrophils Absolute Auto 8.3 x10*3/uL (2.0-8.3); Neutrophils Percent Auto 76.4 % (45-73); Platelet Count 235 X10*3/uL (160-400); Red Blood Count 3.08 X10*6/uL (4.60-5.80); Red Cell Distribution Width 15.3 % (11.0-16.0); White Blood Count 10.9 X10*3/uL (4.8-10.8)
[2024-08-05 07:54] VITALS: BP 142/70; PULSE 51; RESP 18; TEMP 36.6; O2SAT 96
[2024-08-05 07:55] LABS: Anion Gap 11 (12-20); Blood Urea Nitrogen 19 mg/dL (9-16); Calcium 8.5 mg/dL (8.4-10.2); Carbon Dioxide 25 mmol/L (22-29); Chloride 111 mmol/L (96-108); Creatinine Clr Calc Pharmacy 125.9; Estimated Glomerular Filt Rate > 60; Glucose Random 91 mg/dL (60-115); Potassium 3.3 mmol/L (3.3-5.1); Sodium 144 mmol/L (135-145)
[2024-08-05] MEDS: 0.9 % Sodium Chloride Flush 3 ML SYRINGE IVFLUSH (08:17)
[2024-08-05] MEDS: Ascorbic Acid 500 MG TABLET 1000 MG PO (08:17)
[2024-08-05] MEDS: methylPREDNISolone Sod Succ 40 MG/ML VIAL 100 MG IVPUSH (08:17)
[2024-08-05] MEDS: Multivitamin TABLET 1 TAB PO (08:17)
[2024-08-05] MEDS: Metoprolol Succinate ER 25 MG TAB.ER.24H PO (08:17)
--- NOTE | 2024-08-05 09:49 | MHC.CM.PN ---
CM met with Patient at bedside to discuss dc planning. Patient's choice/preference now is to go to a SNF in [place] (other than [facility]); CM has expanded SNF search and WILL CONTINUE TO FOLLOW.
[2024-08-05 11:32] VITALS: BP 136/84; PULSE 66; RESP 19; TEMP 36.4; O2SAT 98
--- NOTE | 2024-08-05 12:37 | MHC.CM.PN ---
Patient has been medically cleared ruby dc to SNF/STR today. There are no accepting facilities in [place] and Patient has accepted the bed offer from [facility]. Patient will dc to [facility] today at 1:30 PM, via [facility] (patient wishes to inform his family himself). IMM was addressed with Patient; original was given to him and a copy has been placed on the chart.
--- NOTE | 2024-08-05 12:47 | P.DS_ITS ---
DS: Providers Provider Date of Service: 08/05/24 Date of admission: 07/30/24 20:30 Date of discharge: 08/05/24 Primary care physician: Raghu Contreras MD Consults: 08/01/24 08:06 Consult to Cardiology Routine Consulting Provider: [facility] Reason for consultation: Newbafib Has provider been notified: Yes 08/01/24 14:34 Consult to Pulmonology Routine Consulting Provider: [facility] Reason for consultation: Acute respiratory failure 08/01/24 15:37 Consult to Hematology / Oncology Routine Consulting Provider: [facility] Reason for consultation: history of melanoma with asceptic meningitis Has provider been notified: Yes 08/01/24 16:06 Consult to Hematology / Oncology Routine Consulting Provider: [facility] Reason for consultation: history melanoma with asceptic 08/03/24 08:01 Consult to Infectious Diseases Routine Consulting Provider: [facility] Reason for consultation: Metastatic brain Cancer, Aseptic meningitis ? DS: Diagnosis Discharge Diagnosis (1) Melanoma: Status: Chronic (2) Metastasis to brain: Status: Acute (3) Atrial flutter with rapid ventricular response: Status: Acute (4) CAP (community acquired pneumonia): Status: Acute (5) Acute respiratory failure with hypoxia: Status: Acute (6) Sepsis: Status: Acute (7) Hypoxia: Status: Acute (8) Pneumonia: Status: Acute (9) Aseptic meningitis: Status: Acute DS: Summary Hospital Course Hospital Course: The patient had prolonged hospital stay. for full details please return to EMR. Admission note HPI Patient is a 68-year-old male with a past medical history significant for prostate cancers s/p radical prostatectomy, nephrolithiasis, OA, HLD, HTN, metastatic melanoma (L groin) receiving chemotherapy with Dr. Smalls, DVT and recent admission in May for aseptic meningitis, presents vomiting and headache. He states that he felt was very similar to his recent episode of meningitis however has improved with receiving pain management including Toradol, Benadryl, Reglan and morphine. Previously he rated his pain a 10/10, now significantly improved but no numeric given. He is also found a fever of 102.8 and hypoxia at 88% on room air. He has had a chronic cough and shortness of breath as well as fatigue. He denies any sensitivity to light or neck pain. He had woken in the middle of the night at 00:30 with 1 episode of nausea and vomiting, after vomiting nausea went away and has not experienced any since. He denies any hematemesis, diarrhea, or abd sx. Hospital course The patient was evaluated for the following for the following: # Headaches, fever, confusion He was covered with antibacterial and antiviral for concern of meningitis\encephalitis. Evaluated with LP, showing no signs of infection. MRI w\wo contrast showing brain metastasis with no signs of infection. Believed to be from aseptic meningtitis likely related to immunotherapy. Evaluated by ID and Oncology who recommended to discontinue Acyclovir, Vancomycin and Ceftriaxone. No fever for >48 hours. 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 Started on Methylprednisolone 100 mg daily IV and will be discharged on tapering dose PRednisone starting 100 mg daily and to decrease by 10 mg every 10 days. To follow with oncology as outpatient. Omeprazole added for stomach protection. Seen by PT who recommended STR Replacement. # Acute hypoxic respiratory failure and sepsis secondary to community-acquired pneumonia, Negative respiratory panel. Cultures negative. weaned off O2 as he Finished 5 days of Antibiotics as he was seen by Pulmonology specialist. # Transient A flutter. rate conrolled and converted back to normal. breif episode. echo >70% hyperdynamic as he was evaluated by cardiology who recommended to start Toprol 25 mg XL and to hold on anticoagulation and consider if A.flutter reoccur. # Metastatic melanoma followed by Dr. Smalls receiving immunotherapy. Oncology followed the patient with recommendations of starting on high-dose steroids, IV methylprednisolone then switched to prednisone 1 milligram/kilos daily with slow taper over next 3- 4 months. He will be started on BRAF/MEK inhibitor for metastatic melanoma Tafinlar&Mekinist. He can be discharged to rehab and he can follow up oncology. Discharge plan Tapering dose of Prednisone as prescribed Omeprazole daily for stomach protection Metoprolol for heart rate control Mekinist and Tafinlar per Oncology recommendations as prescribed To follow with dr Smalls as outpatient Time Attestation Discharge Coordination Time (in mins): 43 Quality: Safe Use of Opioids Does Pt have an Active Cancer Diagnosis on the Problem List?: No Quality: Stroke Does the patient have a stroke diagnosis?: No Physical Exam Vital Signs: Vital Signs: Last Vital Signs Temp 97.6 F 08/05/24 11:32 Pulse 66 08/05/24 11:32 Resp 19 08/05/24 11:32 BP 136/84 08/05/24 11:32 Pulse Ox 98 08/05/24 11:32 O2 Del Method Room Air 08/05/24 11:32 O2 Flow Rate 2 08/05/24 03:25 BMI result Body Mass Index 32.2 Const: Other: General: AO X 3, no acute distress Resp: cecile rhonchi CVS: S1,S2,RRR GI: +BS, NT, no distention Skin: No rash Neuro: motor grossly intact, alert, oriented Psych: appropriate affect DS: Data Data Completed and Pending Completed studies during hospitalization [Text1]: Pending at discharge 08/01/24 16:38 Cytology [PTH] Urgent Procedures Drainage of Spinal Canal, Percutaneous Approach, Diagnostic (05/27/24) Labs on day of discharge: Laboratory Results - last 24 hr 08/05/24 07:04 WBC 10.9 H RBC 3.08 L Hgb 9.4 L Hct 27.4 L MCV 89.0 MCH 30.5 MCHC 34.3 RDW 15.3 Plt Count 235 MPV 9.2 L Immature Gran % (Auto) 1.3 H Neut % (Auto) 76.4 H Lymph % (Auto) 13.6 L [place] % (Auto) 8.6 Eos % (Auto) 0.0 Baso % (Auto) 0.1 Lymph # (Auto) 1.5 [place] # (Auto) 0.9 Eos # (Auto) 0.0 Baso # (Auto) 0.0 Abs Immat Gran (auto) 0.14 H Absolute Neuts (auto) 8.3 Absolute Nucleated RBC 0.030 H Nucleated RBC % (auto) 0.3 H Sodium 144 Potassium 3.3 Chloride 111 H Carbon Dioxide 25 Anion Gap 11 L BUN 19 H Creatinine 0.66 Estim Creat Clear Calc 125.9 Estimated GFR > 60 Random Glucose 91 Calcium 8.5 Preliminary micro results at discharge 08/01/24 15:18 Blood Culture - Preliminary Blood - Venous No growth after 48 hours. 08/01/24 15:18 Blood Culture - Preliminary Blood - Venous No growth after 48 hours. Imaging MRI - head: Radiologist's impression: ITS Impressions Head CT 08/01/24 16:25 IMPRESSION: No acute intracranial abnormality. Electronically signed by: Vern Plummer MD 08/01/2024 04:55 PM EST RP Brain MRI 08/02/24 12:45 IMPRESSION: 1. Numerous tiny enhancing brain metastases involving the bilateral frontal lobes, left parietal lobe, left greater than right temporal lobes, and 2 in the posterior fossa. Largest is in superior left frontal gyrus measuring 4 mm. These are accompanied by a tiny amount of T2 prolongation. 2. Otherwise, no evidence of intracranial hemorrhage, acute infarction, gross mass effect or significant edema. 3. Small mastoid effusions. 4. There is a 9 mm left occipital lymph node. Electronically signed by: Vern Plummer MD 08/02/2024 02:11 PM EST RP Lumbar Puncture Fluoroscopy 08/02/24 14:50 IMPRESSION: Successful fluoroscopic guided lumbar puncture at L4-L5. This procedure was performed by Casey Canada PA-C and supervised by Dr. Plummer. Electronically signed by: Vern Plummer MD 08/03/2024 03:24 PM EST RP Discharge Plan Discharge Anticipated Discharge Date/Time: 08/05/24 12:34 Patient Disposition: er SNF Discharge Diagnosis: Metastatic Melanoma Aseptic meningitis Pneumonia Referrals: [facility] Ramírez [Outside] - 1 Week Po,Raghu Anderson MD [Primary Care Provider] - 1 Week Discharge Medications: New Tafinlar 75 mg Capsule 150 mg PO Q12H Qty: 120 3RF Mekinist 2 mg Tablet 2 mg PO DAILY Qty: 30 3RF Rx Instructions: must be taken on empty stomach, at least 1 hr before or 2-3 hrs after meal/food metoprolol succinate 25 mg Tablet Extended Release 24 Hr 25 mg PO DAILY Qty: 90 0RF Protocol: Hold for SBP/HR < HOLD for SBP < : 90 HOLD for HR < : 60 prednisone 20 mg tablet See Taper PO DAILY Qty: 300 0RF Taper: Prednisone 100 mg daily for 10 Days and 0 Hour 90 mg daily for 10 Days and 0 Hour 80 mg daily for 10 Days and 0 Hour 70 mg daily for 10 Days and 0 Hour 60 mg daily for 10 Days and 0 Hour 50 mg daily for 10 Days and 0 Hour 40 mg daily for 10 Days and 0 Hour 30 mg daily for 10 Days and 0 Hour 20 mg daily for 10 Days and 0 Hour 10 mg daily for 10 Days and 0 Hour omeprazole 20 mg capsule,delayed release(DR/EC) 20 mg PO DAILY Qty: 90 0RF Continued enalapril maleate 10 mg tablet 10 mg PO DAILY Qty: 90 2RF acetaminophen [Acetaminophen Extra Strength] 500 mg Tablet 1,000 mg PO Q6H PRN (Reason: Headache) ondansetron 8 mg Tablet,Disintegrating 8 mg PO Q8H PRN (Reason: Nausea) Qty: 30 3RF diphenhydramine HCl [Benadryl Allergy] 25 mg Tablet 25 mg PO BID PRN (Reason: Rash) Excedrin Migraine 250-250-65 mg Tablet 1 tab PO Q4-6H PRN (Reason: Headache) psyllium husk [Fiber (psyllium husk)] 0.4 gram Capsule 0.4 g PO BEDTIME omega-3 fatty acids 1,000 mg capsule 1,000 mg PO DAILY ascorbic acid (vitamin C) 1,000 mg tablet 1 g PO DAILY Centrum 18-400 mg-mcg tablet 1 tab PO DAILY atorvastatin 10 mg tablet 10 mg PO BEDTIME Qty: 90 3RF hydrochlorothiazide 12.5 mg capsule 12.5 mg PO DAILY Qty: 90 3RF Discharge Orders: Discharge Order (Routine); Ordered 08/05/24 Ordered By: Tarah West Diet: Advance to usual diet Activity on Discharge: As tolerated Stand Alone Forms: Patient Portal Discharge page Print Language: Arabic Activity Restrictions/Additional Instructions: Prednisone Taper: 100 mg daily for 10 Days; 90 mg daily for 10 Days; 80 mg daily for 10 Days; 70 mg daily for 10 Days; 60 mg daily for 10 Days; 50 mg daily for 10 Days; 40 mg daily for 10 Days; 30 mg daily for 10 Days; 20 mg daily for 10 Days; 10 mg daily for 10 Days Care Plan Goals: Tapering dose of Prednisone as prescribed Omeprazole daily for stomach protection Metoprolol for heart rate control Mekinist and Tafinlar per Oncology recommendations as prescribed To follow with dr Smalls as outpatient Health Concerns: Aseptic meningitis Metastatic melanoma Plan of Treatment: Prednisone Oncology follow up Assessment: as above
== END 2024-08-05 13:40 | disposition skilled nursing facility (03) | DRG 871 ==
LOC: HO.ED 20:12 → HO.EDOVER 21:04 → HO.IMC 07-31 08:00
PROVIDERS: Internal Medicine; Admitting Provider Student in an Organized Health Care Education/Training Program; Emergency Provider Emergency Medicine Emergency Medical Services; PCP Internal Medicine; Visit Provider Student in an Organized Health Care Education/Training Program
DX: A41.9 Sepsis, unspecified organism (principal); G03.0 Nonpyogenic meningitis; J69.0 Pneumonitis due to inhalation of food and vomit; J96.01 Acute respiratory failure with hypoxia; G92.8 Other toxic encephalopathy; C77.8 Secondary and unspecified malignant neoplasm of lymph nodes of multiple regions; C78.89 Secondary malignant neoplasm of other digestive organs; C78.01 Secondary malignant neoplasm of right lung; C79.51 Secondary malignant neoplasm of bone; I48.92 Unspecified atrial flutter; C49.9 Malignant neoplasm of connective and soft tissue, unspecified; C79.31 Secondary malignant neoplasm of brain; F05 Delirium due to known physiological condition; E78.5 Hyperlipidemia, unspecified; I27.20 Pulmonary hypertension, unspecified; I95.9 Hypotension, unspecified; Z90.79 Acquired absence of other genital organ(s); Z20.822 Contact with and (suspected) exposure to COVID-19; Z85.46 Personal history of malignant neoplasm of prostate; Z86.718 Personal history of other venous thrombosis and embolism; Z79.899 Other long term (current) drug therapy
CPT/HCPCS: 0241U; 36415; 62328; 70450; 70553; 71045; 71275; 80048; 80053; 80202; 81001; 81003; 82550; 82728; 82803; 82945; 82947; 83605; 83690; 83735; 83880; 84157; 84484; 85025; 85027; 85652; 85730; 86140; 87015; 87040; 87070; 87205; 87483; 87493; 87507; 87633; 87640; 87641; 88112; 89051; 89055; 93005; 93306; 97162; 99285; A9585; J0133; J0295; J0456; J0696; J1200; J1650; J1720; J1885; J2270; J2405; J2765; J2919; J3370; J3371; J7120; Q9957; Q9967

== ENCOUNTER → 2024-07-30 17:35 | Outpatient (BNV) | payer MEDICARE, OTHER, SELFPAY | PROVIDERS: Admitting Provider Student in an Organized Health Care Education/Training Program; Emergency Provider Emergency Medicine Emergency Medical Services; PCP Internal Medicine; Visit Provider Internal Medicine | DX: R94.31 Abnormal electrocardiogram [ECG] [EKG] (principal); R53.1 Weakness | CPT/HCPCS: 93010 ==

== ENCOUNTER → 2024-07-30 17:50 | Outpatient (BNV) | payer MEDICARE, OTHER, SELFPAY | PROVIDERS: Emergency Provider Emergency Medicine Emergency Medical Services; Visit Provider Student in an Organized Health Care Education/Training Program | DX: R06.02 Shortness of breath (principal) | CPT/HCPCS: 71275 ==

== ENCOUNTER 2024-07-30 20:30 | Outpatient (BNV) | payer MEDICARE, OTHER, SELFPAY | END 2024-08-01 08:07 | PROVIDERS: Admitting Provider Student in an Organized Health Care Education/Training Program; Emergency Provider Emergency Medicine Emergency Medical Services; PCP Internal Medicine; Visit Provider Internal Medicine | DX: I48.91 Unspecified atrial fibrillation (principal); I27.20 Pulmonary hypertension, unspecified; I36.1 Nonrheumatic tricuspid (valve) insufficiency; I44.0 Atrioventricular block, first degree; I48.92 Unspecified atrial flutter | CPT/HCPCS: 93010; 93306 ==

== ENCOUNTER 2024-07-30 20:30 | Outpatient (BNV) | payer MEDICARE, OTHER, SELFPAY | END 2024-08-02 12:45 | PROVIDERS: Admitting Provider Student in an Organized Health Care Education/Training Program; Emergency Provider Emergency Medicine Emergency Medical Services; PCP Internal Medicine; Visit Provider Radiology Diagnostic Radiology | DX: C79.31 Secondary malignant neoplasm of brain (principal) | CPT/HCPCS: 70553 ==

== ENCOUNTER 2024-07-30 20:30 | Outpatient (BNV) | payer MEDICARE, OTHER, SELFPAY | END 2024-08-01 16:25 | PROVIDERS: Admitting Provider Student in an Organized Health Care Education/Training Program; Emergency Provider Emergency Medicine Emergency Medical Services; PCP Internal Medicine; Visit Provider Radiology Diagnostic Radiology | DX: R09.02 Hypoxemia (principal); R51.9 Headache, unspecified | CPT/HCPCS: 70450 ==

== ENCOUNTER → 2024-07-30 20:30 | Outpatient (BNV) | payer MEDICARE, OTHER, SELFPAY | PROVIDERS: Admitting Provider Student in an Organized Health Care Education/Training Program; Emergency Provider Emergency Medicine Emergency Medical Services; PCP Internal Medicine; Visit Provider Internal Medicine | DX: I48.92 Unspecified atrial flutter (principal) | CPT/HCPCS: 99223 ==

== ENCOUNTER → 2024-07-30 20:30 | Outpatient (BNV) | payer MEDICARE, OTHER, SELFPAY | PROVIDERS: Admitting Provider Student in an Organized Health Care Education/Training Program; Emergency Provider Emergency Medicine Emergency Medical Services; Visit Provider Physician Assistant | DX: C43.9 Malignant melanoma of skin, unspecified (principal); C79.31 Secondary malignant neoplasm of brain; I48.92 Unspecified atrial flutter; J18.9 Pneumonia, unspecified organism; J96.01 Acute respiratory failure with hypoxia; A41.9 Sepsis, unspecified organism; R09.02 Hypoxemia; G03.0 Nonpyogenic meningitis | CPT/HCPCS: 99223; 99232; 99233; 99239; 99499 ==

== ENCOUNTER → 2024-07-30 20:30 | Outpatient (BNV) | payer MEDICARE, OTHER, SELFPAY | PROVIDERS: Admitting Provider Student in an Organized Health Care Education/Training Program; Emergency Provider Emergency Medicine Emergency Medical Services; PCP Internal Medicine; Visit Provider Internal Medicine | DX: R51.9 Headache, unspecified (principal); R50.9 Fever, unspecified; C79.31 Secondary malignant neoplasm of brain | CPT/HCPCS: 99223; 99231 ==

== ENCOUNTER → 2024-07-30 20:30 | Outpatient (BNV) | payer MEDICARE, OTHER, SELFPAY | PROVIDERS: Admitting Provider Student in an Organized Health Care Education/Training Program; Emergency Provider Emergency Medicine Emergency Medical Services; PCP Internal Medicine; Visit Provider Internal Medicine | DX: C79.31 Secondary malignant neoplasm of brain (principal); G03.0 Nonpyogenic meningitis | CPT/HCPCS: 99222 ==

== ENCOUNTER → 2024-07-30 20:30 | Outpatient (BNV) | payer MEDICARE, OTHER, SELFPAY | PROVIDERS: Admitting Provider Student in an Organized Health Care Education/Training Program; Emergency Provider Emergency Medicine Emergency Medical Services; PCP Internal Medicine; Visit Provider Internal Medicine Pulmonary Disease | DX: J96.01 Acute respiratory failure with hypoxia (principal); A41.9 Sepsis, unspecified organism | CPT/HCPCS: 99222 ==

== ENCOUNTER 2024-09-07 10:39 | Outpatient (AMB) | payer MEDICARE, OTHER, SELFPAY ==
[2024-09-07 10:44] VITALS: BP 108/58; PULSE 64; RESP 18; TEMP 37.3; O2SAT 97; BMI 31.0
--- NOTE | 2024-09-07 10:44 | A.OFFPC_ITS ---
Vital Signs 09/07/24 10:44 Height 5 ft 10 in Weight 216 lb 3.2 oz BMI 31.0 BP 108/58 L Blood Pressure Location Lt brachial Position Sitting Respiration 18 Pulse 64 Pulse Source Pulse Oximeter Temp 99.1 F Temp Source Oral Pulse Oximetry (%) 97 Oxygen Delivery Method Room Air Intake [place] [facility] [facility] [place] Intake Note: Patient is here for hospital discharge follow up. Patient was discharged from [facility] in [place], [place] on 08/05/2024. Administrative Analyst Required: No Accompanied by: Self / Same As Patient Allergies No Known Allergies Allergy (Verified 09/07/24 11:20) Medication List - Last Reconciled 09/07/24 by SANDRITA Morin ascorbic acid (vitamin C) 1 g PO DAILY udoyzep-grobivdlqboan-iduiupgt 250-250-65 mg (Excedrin Migraine) 1 tab PO Q4-6H PRN atorvastatin 10 mg PO BEDTIME binimetinib 45 mg (3 x 15 mg) PO Q12H diphenhydramine HCl (Benadryl Allergy) 25 mg PO BID PRN enalapril maleate 10 mg PO DAILY encorafenib (Braftovi) 450 mg (6 x 75 mg) PO DAILY hydrochlorothiazide 12.5 mg PO DAILY metoprolol succinate ER 25 mg See Protocol PO DAILY uvdayjyvaxhi-mjua-ifnee acid 18-400 mg-mcg (Centrum) 1 tab PO DAILY omega-3 fatty acids 1,000 mg PO DAILY omeprazole 20 mg PO DAILY ondansetron 8 mg PO Q8H PRN prednisone 20 mg PO DAILY psyllium husk (Fiber (psyllium husk)) 0.4 grams PO BEDTIME sulfamethoxazole-trimethoprim 800-160 mg (Bactrim DS) 1 tab PO 3XW Tobacco use date assessed: 09/07/24 Fall risk assessment: No Falls in past year Last assessed Fall Risk: 09/07/24 Dental Screening Dental Screen Date: 09/07/24 Did you have a dental visit in the last 12 months?: Yes Did you have a dental problem in the last 6 months where you did not have access to dental care?: No Was dental information given to patient?: Patient has dentist [place] [facility] [place]neumonia HPI Details Patient is physical 68-year-old male with significant past medical history of prostate cancer status post radical prostatectomy, nephrolithiasis, away, HLD, HTN, metastatic melanoma(L groin) receiving chemotherapy with Dr. Smalls, DVT and recent hospital admission in May for aseptic meningitis The patient is presenting for status post hospital visit follow up appointment The patient went to the hospital with vomiting and headache and reporting feeling similar to when he had episode of meningitis He was found to be febrile at 01:02 0.8 and hypoxic at 88% on room air Patient was noted with ongoing chronic cough and shortness of breath as well as fatigue. The patient denies sensitivity to light or neck pain. The reports that he has just got off the prednisone on Wednesday and the following wednesday he ended up in hospital withi pneumonia. Reports that he is down to 20 mg and he has an follow up appt tomorrow (Dr. Sprague oncogolist) Reports that some of the medications he is on makes him a little tired adn but he doing ok and getting up and still doing things heart is regular in office. He had a new afib at the hospital. anticogulant and started metoprolol. He did rehab and he is doing well now. He had to work on his balance and stamina. Denies chest pain, or heart palpitation. lungs clear. The patient was covered with antibacterial and antiviral for concerns of meningitis/encephalitis Evaluated LP showed no signs of infection. MRI with and without contrast showing brain metastasis with no signs of infection. There was suspicion of aseptic meningitis likely related to immunotherapy. The patient was evaluated by ID and Oncology we will recommended to discontinue acyclovir, vancomycin and ceftriaxone. Oncology suggest treating aseptic meningitis from immunotherapy with high steroid long tapering dose over the next 3-4 months. The patient was started on methylprednisolone 100 mg daily IV and he was discharged on tapering dose prednisone starting at 100 mg daily and to decrease by 10 mg every 10 days. The patient to follow up with Oncology outpatient. In addition omeprazole was added for stomach protection The patient is presenting today. Patient reports that prior to going to the [facility], he had just got off prednisone on the Wednesday and following Wednesday he end up in the hospital with pneumonia Patient reports that he is down to 20 mg of prednisone and he has a follow up appointment tomorrow with Dr. Smalls oncologist He reports that some of his medications makes him feel tired but he is still trying to get up and do things The patient has a regular heart rhythm in the office. Found to have a new AFib in the hospital. He has an anticoagulant and he was started on metoprolol. The patient did rehab and he is doing well now. In rehab he had to work on his balance and stamina The patient denies chest pain, increased shortness of breath or heart palpitation [facility] Medical History (Updated 09/19/24 @ 23:32 by SANDRITA Morin) Metastasis to brain Aseptic meningitis Obesity (BMI 30.0-34.9) PSA elevation Overweight (BMI 25.0-29.9) Finger fracture, right Nephrolithiasis Osteoarthritis Hypercholesterolemia Hypertension Surgical History Melanoma History of tonsillectomy Family History Mother Bladder cancer Father Prostate cancer Social History Household Members: None Housing: House Do you presently have visiting nurse or other home services: No Alcohol intake: former Patient Tobacco Use Status: Never used Tobacco e-Cigarette/Vaping Use: Never Used Second Hand Smoke Exposure: No Advance Directives Date on File: 09/22/22 service: Yes ([employer]- 20 yrs) Current occupational status: employed Sexual orientation: Straight/Heterosexual Gender identity: Male Cognitive needs: No Hearing needs: No Vision needs: Yes Questionnaire PHQ-9 Over the last 2 weeks, how often have you been bothered by any of the following problems? 1. Little interest or pleasure in doing things: not at all 2. Feeling down, depressed, or hopeless: not at all 3. Trouble falling or staying asleep, or sleeping too much: not at all 4. Feeling tired or having little energy: not at all 5. Poor appetite or overeating: not at all 6. Feeling bad about yourself - or that you are a failure or have let yourself or your family down: not at all 7. Trouble concentrating on things, such as reading the newspaper or watching television: not at all 8. Moving or speaking so slowly that other people could have noticed. Or the opposite - being so fidgety or restless that you have been moving around a lot more than usual: not at all 9. Thoughts that you would be better off or of hurting yourself in some way: not at all Total score: 0 Depression Screening Interpretation: Negative Depression Screening Done: Yes 82691 - PHQ-9 Billing: Yes Source: Developed by Drs. Quirino Coats, Radha Reed, Bruno Reeves and colleagues, with an educational marleen from [employer]. Thrive Questionnaire Date Thrive assessed: 09/07/24 I am a: Patient What is your living situation today?: I have a steady place to live Within the past 12 months, did the food you bought not last and you didn't have the money to get more?: Never true Within the past 12 months, did you worry whether your food would run out before you got money to buy more?: Never true Do you have trouble paying for medicines?: No Do you have trouble getting transportation to medical appointments?: No Do you have trouble paying your heating and electricity bill?: No Do you have trouble taking care of your child, family member or friend?: No Do you have trouble with day-to-day activities such as bathing, preparing meals, shopping, managing finances, etc.?: No Are you currently unemployed and looking for a job?: No Are you interested in more education?: No Currently or been in a relationship where the following occur: No concerns reported THRIVE Score: 0 AUDIT C Alcohol Use Questionnaire (AUDIT-C) 1. How often do you have a drink containing alcohol?: Never 3. How often do you have six or more drinks on one occasion?: Never Total Score: 0 Score Reviewed/Action Taken: No TIANNA-7 AMB Questionnaire TIANNA-7 Date TIANNA - 7 assessed: 09/07/24 Feeling nervous, anxious, or on edge: 0 = Not at all Not being able to stop or control worryin = Not at all Worrying too much about different things: 0 = Not at all Trouble relaxin = Not at all Being so restless that it is hard to sit still: 0 = Not at all Becoming easily annoyed or irritable: 0 = Not at all Feeling afraid as if something awful might happen: 0 = Not at all Total TIANNA-7 score (0-4 normal; 5-9 mild; 10-14 moderate; 15-21 severe): 0 Source: Developed by Drs. Quirino Coats, Radha Reed, Bruno Reeves and colleagues, with an educational marleen from [employer]. TIANNA-7 Assessment Billing TIANNA-7 Assessment Tool: TIANNA-7 Assessment 56979 Review of Systems Const Denies headache(s) and Reports other (feeling tired) Eyes Denies loss of vision ENT Denies vertigo, Denies dizziness, Denies headache(s) and Denies sore throat Card Denies chest pain, Denies leg edema and Denies lightheadedness Resp Denies cough, Denies hemoptysis and Denies wheezing GI Denies abdominal pain, Denies melena, Denies constipation, Denies diarrhea and Denies vomiting Denies dysuria, Denies urinary frequency and Denies urinary urgency Musc Denies arthralgias, Denies joint swelling, Denies numbness and Denies tingling Neuro Denies Abnormal speech present, Denies behavioral changes, Denies vertigo, Denies dizziness, Denies headache(s), Denies loss of vision, Denies memory loss, Denies numbness and Denies tingling Psych Denies anxiety, Denies behavioral changes, Denies depression, Denies memory loss and Denies panic attacks James/Lymph Denies easy bleeding and Denies easy bruising Aller/Immun Denies wheezing Physical exam (Primary Care) Vital Signs: Last Vital Signs Temp 99.1 F 09/07/24 10:44 Pulse 64 09/07/24 10:44 Resp 18 09/07/24 10:44 BP 108/58 L 09/07/24 10:44 Pulse Ox 97 09/07/24 10:44 Oxygen Delivery Method Room Air 09/07/24 10:44 BMI result Body Mass Index 31.0 Tobacco/Smoking Status: Tobacco use Status Tobacco use date assessed 09/07/24 09/07/24 11:02 Patient Tobacco Use Status Never used Tobacco 09/07/24 10:45 e-Cigarette/Vaping Use Never Used 09/07/24 10:45 PHQ-9: PHQ-9 Score PHQ-9: Total score 0 09/08/24 09:42 Depression Screening Interpretation: Negative Thrive Assessment: Date of Thrive Assessment Date Thrive assessed 09/07/24 09/07/24 11:02 Currently or been in a relationship where the following occur: No concerns reported Const General: healthy appearing, no acute distress, alert and awake Nutritional Appearance: well nourished Orientation/consciousness: oriented to person, oriented to place and oriented to time HENMT Ears: TM's normal bilaterally General nose exam: Normal nasal mucous membranes and turbinates present Eyes Conjunctivae: conjunctivae normal Sclerae: sclerae normal Pupils: Equal, round and reactive pupils present Neck Neck: Yes no lymphadenopathy and Yes no JVD Thyroid: Thyroid normal Carotids: no bruits Resp Effort & Inspection: normal respiratory effort and not tachypneic Auscultation: no crackles, no rales, no rhonchi and no wheezes Cardio Rate: regular rate Rhythm: regular rhythm Heart sounds: no murmurs and normal S1 and S2 GI Palpation (GI): Soft to palpation, nontender, no hepatomegaly and no splenomegaly Auscultation: normal bowel sounds Skin General skin exam: no rashes or lesions noted and dry skin Neuro General: oriented to person, oriented to place and oriented to time Cranial nerves: Yes Equal, round and reactive pupils present Speech: No Abnormal speech present Gait exam (Neuro): Normal gait present Motor exam (neuro): no tremor noted Extrem Right upper extremity: full ROM Left upper extremity: full ROM Right lower extremity: full ROM; no edema Left lower extremity: full ROM; no edema Psych Mental Status: mental status grossly normal Speech and movement: Normal speech and movement present Affect: normal affect Attitude: cooperative Thought process: Normal thought process present Coding Level of Care Code Tele Est Pt Level 4 (76167) Diagnoses Acute respiratory failure with hypoxia J96.01 Respiratory failure complication: hypoxia Transient atrial fibrillation/flutter I48.91; I48.92 Metastatic melanoma C43.9 Additional Codes TIANNA-7 Assessment Billing - TIANNA-7 Assessment Tool: TIANNA-7 Assessment 13237 ([id number]) PHQ-9 - 26916 - PHQ-9 Billing: Yes ([id number]) Time Spent (min) 42 Assessment & Plan Assessment & Plan (1) Acute respiratory failure: Code(s): J96.00 - Acute respiratory failure, unspecified whether with hypoxia or hypercapnia Category: Medical Qualifiers: Respiratory failure complication: hypoxia Qualified Code(s): J96.01 - Acute respiratory failure with hypoxia Plan: The patient pulse ox was 88% on room air with a septic picture secondary to community-acquired pneumonia. Respiratory panel was negative. Cultures was negative the patient finished 5 days of antibiotics and was able to weaned off oxygen. Continued to be stable (2) Transient atrial fibrillation/flutter: Code(s): I48.91 - Unspecified atrial fibrillation; I48.92 - Unspecified atrial flutter Category: Medical Plan: New onset in the hospital. The patient was placed on rate control and was converted back to normal. Echo showed 70% hyperdynamic and he was evaluated by Cardiology who recommended starting the patient on Toprol 25 mg XL on hold anticoagulation and to consider restarting if a flutter reoccur. The patient has a regular heart rhythm in office. We will continue to monitor r (3) Metastatic melanoma: Code(s): C43.9 - Malignant melanoma of skin, unspecified Category: Medical Plan: The patient is followed by Dr. Smalls, receiving immunotherapy. Patient was evaluated by Oncology who recommended starting the patient on high dose steroids. IV methylprednisolone started and was switched to prednisone 1 milligram/kilos daily with slow tapering over the next 3-4 months. Plans for the patient to be started on BRAF/MEK inhibitor for metastatic melanoma [facility] Luc[facility]. The patient was discharged to Rehab to work on the strength and gait . Gait steady in office today with no extraneous movements. Orders: Orders Complete Blood Count Auto Diff 3 Months C43.9 - Malignant melanoma of skin, unspecified, D12.6 - Benign neoplasm of colon, unspecified, M54.31 - Sciatica, right side, C61 - Malignant neoplasm of prostate, E66.3 - Overweight, Z00.00 - Encounter for general adult medical examination without abnormal findings, I10 - Essential (primary) hypertension Lipid Panel 3 Months C43.9 - Malignant melanoma of skin, unspecified, D12.6 - Benign neoplasm of colon, unspecified, M54.31 - Sciatica, right side, C61 - Malignant neoplasm of prostate, E66.3 - Overweight, Z00.00 - Encounter for general adult medical examination without abnormal findings, I10 - Essential (primary) hypertension Comprehensive [place]. Panel Fast 3 Months C43.9 - Malignant melanoma of skin, unspecified, D12.6 - Benign neoplasm of colon, unspecified, M54.31 - Sciatica, right side, C61 - Malignant neoplasm of prostate, E66.3 - Overweight, Z00.00 - Encounter for general adult medical examination without abnormal findings, I10 - Essential (primary) hypertension TSH reflex Free T4 3 Months C43.9 - Malignant melanoma of skin, unspecified, D12.6 - Benign neoplasm of colon, unspecified, M54.31 - Sciatica, right side, C61 - Malignant neoplasm of prostate, E66.3 - Overweight, Z00.00 - Encounter for general adult medical examination without abnormal findings, I10 - Essential (primary) hypertension UA CC w/rflx Micro + Cult 3 Months C43.9 - Malignant melanoma of skin, unspecified, D12.6 - Benign neoplasm of colon, unspecified, M54.31 - Sciatica, right side, C61 - Malignant neoplasm of prostate, E66.3 - Overweight, Z00.00 - Encounter for general adult medical examination without abnormal findings, I10 - Essential (primary) hypertension Vitamin D 25-OH Total 3 Months C43.9 - Malignant melanoma of skin, unspecified, D12.6 - Benign neoplasm of colon, unspecified, M54.31 - Sciatica, right side, C61 - Malignant neoplasm of prostate, E66.3 - Overweight, Z00.00 - Encounter for general adult medical examination without abnormal findings, I10 - Essential (primary) hypertension Glucose Fasting 3 Months C43.9 - Malignant melanoma of skin, unspecified, D12.6 - Benign neoplasm of colon, unspecified, M54.31 - Sciatica, right side, C61 - Malignant neoplasm of prostate, E66.3 - Overweight, Z00.00 - Encounter for general adult medical examination without abnormal findings, I10 - Essential (primary) hypertension
== END 2024-09-07 11:36 | disposition home or self-care (01) ==
LOC: HO.HMCH 10:40
PROVIDERS: PCP Internal Medicine
DX: J96.01 Acute respiratory failure with hypoxia (principal); I48.91 Unspecified atrial fibrillation; I48.92 Unspecified atrial flutter; C43.9 Malignant melanoma of skin, unspecified

== ENCOUNTER → 2024-09-07 10:39 | Outpatient (BNVA) | payer MEDICARE, OTHER, SELFPAY | PROVIDERS: PCP Internal Medicine | DX: J96.01 Acute respiratory failure with hypoxia (principal); I48.91 Unspecified atrial fibrillation; I48.92 Unspecified atrial flutter; C43.9 Malignant melanoma of skin, unspecified | CPT/HCPCS: 96127; 99212 ==

== ENCOUNTER → 2024-09-11 13:29 | Outpatient (REF) | payer MEDICARE, OTHER, SELFPAY ==
--- NOTE | 2024-09-11 13:34 | ECG_ITS ---
Test Reason : MALIGNANT MELANOMA OF SKIN Blood Pressure : */* mmHG Vent. Rate : 77 BPM Atrial Rate : 77 BPM P-R Int : 144 ms QRS Dur : 78 ms QT Int : 384 ms P-R-T Axes : 60 5 18 degrees QTcB Int : 434 ms Normal sinus rhythm Normal ECG When compared with ECG of 01-Aug-2024 04:45, Sinus rhythm has replaced Atrial flutter Vent. rate has decreased by 58 bpm T wave inversion no longer evident in Lateral leads Referred By: Rose Marie Smalls Electronically Signed By: HAILEY MILIAN
--- OUTSIDE RECORDS SUMMARY | 2024-09-11 15:16 | XMS_ITS ---
Author Organization [facility] Address [address] [place] [phone] Care Team Providers Care Turn Down Man Name Role Phone Raghu Contreras MD Primary Care Provider Estrella Ewing [facility] [phone] Encounters Encounter Location Date Provider Diagnosis [facility] [address] [place] [phone] 04/21/2024 Estrella Mosqueda Plan Of Treatment No Information Progress Notes * ИВАН SHELBYDOB:1955 ([age] yo M)Acc No.[id number]:04/21/2024 Patient:?ИВАН SHELBY :1955???Age:68 Y???Sex:Male Address:[address] [facility], [place] [address] * true * Date:? Generated for Harrison zapata/Rick/eTransmitting on:?09/11/2024 03:16 PM EDT
--- OUTSIDE RECORDS SUMMARY | 2024-09-11 15:16 | XMS_ITS ---
Author Organization [facility] Address [address] [place] [address] Care Team Providers Care Plant Culture Manager Name Role Phone Raghu Contreras MD Primary Care Provider Estrella Ewing Unavailable [phone] Allergies No Known Allergies REASON FOR VISIT Patient presents today for a COLON SCREENING Medications Medication SIG (Take, Route, Frequency, Duration) Notes [...] tablet Oral ly Once a day Active Problems Problem Type SNOMED Code ICD Code Onset Dates Problem Status W/U Status Risk Notes Problem History of adenomatous polyp of colon (906530043) History of adenomatous polyp of colon (Z86.010) Active confirmed Problem Colon cancer screening (734877606) Colon cancer screening (Z12.11) Active confirmed Problem Pre-procedure evaluation check (415624213) Encounter for other preprocedural examination (Z01.818) Active confirmed Problem Long-term current use of drug therapy (750302046) Encounter for long-term (current) use of high-risk medication (Z79.899) Active confirmed Vital Signs Blood pressure systolic 00 mm Hg 03/02/20 24 Blood pressure diastolic 00 mm Hg 024 Height 69 in 03/02/2024 Weight 206 lbs 03/02/2024 BMI 30.42 kg/m2 03/02/2024 Encounters Encounter Location Date Provider Diagnosis [facility] [address] [place] [address] 03/02/2024 Estrella Mosqueda History of adenomato us polyp of colon Z86.010 ; Encounter for long-term (current) use of high-risk medication Z79.899 ; Colon cancer screening Z12.11 and Encounter for other preprocedural examination Z01.818 Assessments Encounter Date Diagnosis (ICD Code) Assessment Notes Treatment Notes Treatment Clinical Notes Section Notes 03/02/2024 History of adenomatous polyp of colon (ICD-10 - Z86.010) Overall, Edward appears quite well. Given his personal history of a tubular adenoma removed over 5 years ago, I did recommend a followup colonoscopy for further screening purposes. We did review the rationale for this regard to colon cancer prevention. Full consent was obtained for this, including risks of bleeding and perforation. The procedure will be done with monitored anesthesia care. He was given the below instructions for adjustment of his medications for the procedure. I did advise him to let me know the ultimate outcome of his lymph node biopsy and PET-CT scan. I advised him that if it turns out that he does have cancer and needs treatments we can always postpone the colonoscopy until later next year. Edward was comfortable with this plan. Thank you again for allowing me to proceed in Edward's care. I shall continue to keep you advised of his progress. 03/02/2024 Encounter for long-term (current) use of high-risk medication (ICD-10 - Z79.899) Overall, Edward appears quite well. Given his personal history of a tubular adenoma removed over 5 years ago, I did recommend a followup colonoscopy for further screening purposes. We did review the rationale for this regard to colon cancer prevention. Full consent was obtained for this, including risks of bleeding and perforation. The procedure will be done with monitored anesthesia care. He was given the below instructions for adjustment of his medications for the procedure. I did advise him to let me know the ultimate outcome of his lymph node biopsy and PET-CT scan. I advised him that if it turns out that he does have cancer and needs treatments we can always postpone the colonoscopy until later next year. Edward was comfortable with this plan. Thank you again for allowing me to proceed in Edward's care. I shall continue to keep you advised of his progress. 03/02/2024 Colon cancer screening (ICD-10 - Z12.11) Stop fish oil for 1 week before the colonoscopy Do not take the Hydrochlorothiazide the day before or on the day of the colonoscopy IF IT TURNS OUT YOU NEED HAVE TREATMENT FOR THE LYMPH NODE ISSUE LET ME KNOW AND WE CAN ALWAYS DELAY THE COLONOSCOPY Overall, Edward appears quite well. Given his personal history of a tubular adenoma removed over 5 years ago, I did recommend a followup colonoscopy for further screening purposes. We did review the rationale for this regard to colon cancer prevention. Full consent was obtained for this, including risks of bleeding and perforation. The procedure will be done with monitored anesthesia care. He was given the below instructions for adjustment of his medications for the procedure. I did advise him to let me know the ultimate outcome of his lymph node biopsy and PET-CT scan. I advised him that if it turns out that he does have cancer and needs treatments we can always postpone the colonoscopy until later next year. Edward was comfortable with this plan. Thank you again for allowing me to proceed in Edward's care. I shall continue to keep you advised of his progress. 03/02/2024 Encounter for other preprocedural examination (ICD-10 - Z01.818) Overall, Edward appears quite well. Given his personal history of a tubular adenoma removed over 5 years ago, I did recommend a followup colonoscopy for further screening purposes. We did review the rationale for this regard to colon cancer prevention. Full consent was obtained for this, including risks of bleeding and perforation. The procedure will be done with monitored anesthesia care. He was given the below instructions for adjustment of his medications for the procedure. I did advise him to let me know the ultimate outcome of his lymph node biopsy and PET-CT scan. I advised him that if it turns out that he does have cancer and needs treatments we can always postpone the colonoscopy until later next year. Edward was comfortable with this plan. Thank you again for allowing me to proceed in Edward's care. I shall continue to keep you advised of his progress. Plan Of Treatment Treatment Notes Assessment Notes Colon cancer screening [...] Follow Up: prn, Reason: Progress Notes * ИВАН SHELBYDOB:1955 ([age] yo M)Acc No.[id number]:03/02/2024 Progress Notes Patient:?ИВАН SHELBY Provider:?Estrella Mosqueda MD :1955???Age:68 Y???Sex:Male Brown e:03/02/2024 Address:[address] [place] [address], [place] [address] Pcp:Raghu Contreras MD Subjective: * Chief Complaints: * ???Patient presents today fo r a COLON SCREENING * HPI: ???incontinence:? I saw Edward in the office today for evaluation of his personal history of a tubular adenoma of the colon and need for colorectal cancer screening. ?I last saw Edward in February 2019, at which time he underwent a screening colonoscopy with removal of a small tubular adenoma. He presently feels well. He enjoys a good appetite, without any significant Heartburn or dysphagia. His bowel movements have been regular and without any sign of bleeding. He denies abdominal pain, jaundice, nor unintentional weight loss. He denies any known family history of colon cancer. ?Of note, he describes a lymph node biopsy in January which raised the suspicion of either melanoma or possible some other type of cancer. However, he states that the diagnosis of cancer is not definitive. He is scheduled for a PET-CT scan later today and will then have followup with the Oncologist in March. * ROS:?General/Constitutional:?Change in appetite?denies.?Chills?denies.?Fatigue?denies.?Ophthalmologic:?Patient denies? Negative..?ENT:?Patient denies?Negative..?Respiratory:?Patient denies?No coughing/hemoptysis..?Cardiovascular:?Patient denies? No chest pain/orthopnea..?Gastrointestinal:?Comments?See HPI for details.?Genitourinary:?Patient denies? No dysuria/hematuria..?Musculoskeletal:?Patient denies? No specific arthralgias/myalgias..?Skin:?Patient denies?No rash/pruritus..?Neurologic:?Patient denies? No headaches/seizures..?Psychiatric:?Patient denies?Negative..? * Medical History:? * Surgical History:?Tonsillect tommie and adenoidectomy Scalp cyst removed Radical prostatectomy--Dr. Yeboah 09/2022Lymph node biopsy 01/[address] Decker---? melanoma as above * Hospitalization/Major Diagno stic Procedure:?No Hospitalization History. * Family History:?Father: dece ased, His father had colon polyps..?Mother: , bladder cancer/heart attack, diagnosed with Heart disease.? Other than his father with colon polyps, there is no family history of GI malignancy nor polyps. * Social History:?Tobacco Use:?Tobacco Use/Smoking?Are you a: nonsmoker.?Drugs/Alcohol:?Alcohol Screen?Points: 0, Interpretation: Negative.?Miscellaneous:?Marital status: single. 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 ???Nonsmoker; no alcohol. * Medications:?TakingVitamin C 500 MG Capsule as directed Orally Centrum Silver - Tablet as directed Orally once a dayAtorvastatin Calcium 10 MG Tablet 1 tablet Orally Once a dayhydroCHLOROthiazide 12.5 MG Tablet 1 tablet in the morning Orally Once a dayFish Oil 1000 MG Capsule 1 capsule Orally Once a dayMetamucil Fiber 51.7 % Packet as directed Orally as directedSildenafil Citrate 100 MG Tablet Oral Taking Vitamin C 500 MG Capsule as directed Orally Taking Centrum Silver - Tablet as directed Orally once a dayTaking Atorvastatin Calcium 10 MG Tablet 1 tablet Orally Once a dayTaking hydroCHLOROthiazide 12.5 MG Tablet 1 tablet in the morning Orally Once a dayTaking Fish Oil 1000 MG Capsule 1 capsule Orally Once a dayTaking Metamucil Fiber 51.7 % Packet as directed Orally as directedTaking Sildenafil Citrate 100 MG Tablet Oral Not-Taking/PRNAspirin Adult Low Dose 81 MG Tablet Delayed Release 1 tablet Orally Once a dayCVS Allergy Relief 25 MG/10ML Liquid as directed Orally Not-Taking/PRN Aspirin Adult Low Dose 81 MG Tablet Delayed Release 1 tablet Orally Once a dayNot-Taking/PRN CVS Allergy Relief 25 MG/10ML Liquid as directed Orally DiscontinuedOmega 3 300 mg 1 capsule Orally Once a dayMedication List reviewed and reconciled with the patientDiscontinued Red Lion 3 300 mg 1 capsule Orally Once a dayMedication List reviewed and reconciled with the patient * Allergies:?N.K.D.A.yes[Aller gies Verified] Objective: * Vitals:?Wt: 206 lbs, Ht: 69 in, BMI:30.42 Index, BP: 00/00 mm Hg. * Examination: ???General Examination: ?GENERAL APPEARANCE:?pleasant, well nourished, well developed, in no acute distress.?EYES:?sclera non-icteric.?ORAL CAVITY:?mucosa moist.?NECK/THYROID:?no cervical lymphadenopathy, neck supple.?SKIN:?nonjaundiced, no spider angiomata..?HEART:?S1, S2 normal.?LUNGS:?clear to auscultation bilaterally.?ABDOMEN:?normal bowel sounds, no guarding or rigidity, no hepatosplenomegaly, no masses palpable, soft, nontender, nondistended..?EXTREMITIES:?no edema.?NEUROLOGIC:?alert and oriented.? Assessment: * Assessment: 1.?Encounter for long-term ( current) use of high-risk medication - Z79.899 (Primary)?2.?History of adenomatous polyp of colon - Z86.010?3.?Colon cancer screening - Z12.11?4.?Encounter for other preprocedural examination - Z01.818? Overall, Edward appears quite w ell. Given his personal history of a tubular adenoma removed over 5 years ago, I did recommend a followup colonoscopy for further screening purposes. We did review the rationale for this regard to colon cancer prevention. Full consent was obtained for this, including risks of bleeding and perforation. The procedure will be done with monitored anesthesia care. He was given the below instructions for adjustment of his medications for the procedure. I did advise him to let me know the ultimate outcome of his lymph node biopsy and PET-CT scan. I advised him that if it turns out that he does have cancer and needs treatments we can always postpone the colonoscopy until later next year. Edward was comfortable with this plan. Thank you again for allowing me to proceed in Edward's care. I shall continue to keep you advised of his progress. Plan: * Treatment: 2.?Colon cancer screening?Procedure: COLONOSCOPY (Ordered for 03/02/2024)* with MACsched for 06/26/23 at 12:10 pmmiralax Notes: Stop fish oil for 1 week before the colonoscopy Do not take the Hydrochlorothiazide the day before or on the day of the colonoscopy IF IT TURNS OUT YOU NEED HAVE TREATMENT FOR THE LYMPH NODE ISSUE LET ME KNOW AND WE CAN ALWAYS DELAY THE COLONOSCOPY?? * Procedure Codes:?3017F COLOR ECTAL CA SCREEN DOC [id number] TOBACCO [id number] BP SCR NOT PRFRM REC REASON NOS * Preventive Medicine:? ??Counseling:?Care goal follow-up plan:?Above Normal BMI Follow-up?Giving encouragement to exercise,?BMI management provided?Yes.? * Follow Up:?prn * * Sign off status: Completed true * Provider:?Estrella Mosqueda MD Date:? 024 Generated for Harrison zapata/Rick/Ericitting on:?09/11/2024 03:15 PM EDT History and Physical Notes * HPI (History of Present Illness) Category Sub-Category Detail Notes Category Not es incontinence I saw Edward in the office today for evaluation of his personal history of a tubular adenoma of the colon and need for colorectal cancer screening. I last saw Edward in February 2019, at which time he underwent a screening colonoscopy with removal of a small tubular adenoma. He presently feels well. He enjoys a good appetite, without any significant Heartburn or dysphagia. His bowel movements have been regular and without any sign of bleeding. He denies abdominal pain, jaundice, nor unintentional weight loss. He denies any known family history of colon cancer. Of note, he describes a lymph node biopsy in January which raised the suspicion of either melanoma or possible some other type of cancer. However, he states that the diagnosis of cancer is not definitive. He is scheduled for a PET-CT scan later today and will then have followup with the Oncologist in March. Examination Category Sub-Category Detail Notes Category Not es General Examination GENERAL APPEARANCE: pleasant , well [...]
--- OUTSIDE RECORDS SUMMARY | 2024-09-11 15:16 | XMS_ITS ---
Author Organization [facility] Address [address] [place] [address] Care Team Providers Care House Worker General Name Role Phone Raghu Contreras MD Primary Care Provider Estrella Ewing [facility] [phone] REASON FOR VISIT screening,hx polyps Encounters Encounter Location Date Provider Diagnosis [facility] Outpatient [address] [place], [place] [phone] 06/26/2024 Estrella Mosqueda Plan Of Treatment No Information Progress Notes * ИВАН SHELBYDOB:1955 ([age] yo M)Acc No.[id number]:06/26/2024 COLON WITH MAC Patient:?ИВАН SHELBY Provider:?Estrella Mosqueda MD :1955???Age:68 Y???Sex:Male Brown e:06/26/2024 Address:[address] [place], [place] [id number] Pcp:Raghu Contreras MD Subjective: * Chief Complaints: * ???1. Screening,hx polyps. * Medical History:? Objective: * Vitals:? Assessment: Plan: * Treatment: * * The named appointment provid er may or may not be the originator of this progress note, and it is not deemed complete until electronically signed by the appointment provider. Sign off status: Pending * Provider:?Estrella Mosqueda MD Date:? 025 Generated for Printi ng/Faxing/eTransmitting on:?09/11/2024 03:15 PM EDT
--- OUTSIDE RECORDS SUMMARY | 2024-09-11 15:16 | XMS_ITS | Patient Health Record ---
Author Organization [facility] Address [address] [place] [address] Care Team Providers Care Clamper Name Role Phone Po Raghu PERES Primary Care Provider Estrella Ewing Unavailable [phone] Allergies No Known Allergies Reason For Referral No Information Medications Medication SIG (Take, Route, Frequency, Duration) [...] tablet Oral ly Once a day Active Immunizations Vaccine Route Administration Date Status Comme nts Influenza Unknown 02/12/2018 Administered Problems Problem Type SNOMED Code ICD Code Onset Dates Problem Status W/U Status Risk Notes Problem Colon cancer screening (360142230) Colon cancer screening (Z12.11) Active confirmed Problem 454506891 Encounter for screening for malignant neoplasm of colon (Z12.11) Active confirmed Problem History of adenomatous polyp of colon (981235111) History of adenomatous polyp of colon (Z86.010) Active confirmed Problem Pre-procedure evaluation check (855477339) Encounter for other preprocedural examination (Z01.818) Active confirmed Problem Long-term current use of drug therapy (074782734) Encounter for long-term (current) use of high-risk medication (Z79.899) Active confirmed Problem 942162577903382 Pre-procedural examination (Z01.818) Active confirmed Vital Signs Blood pressure diastolic 00 mm Hg 03/02/2024 Height 69 in 03/02/2024 Blood pressure systolic 00 mm Hg 03/02/2024 Weight 206 lbs 03/02/2024 BMI 30.42 kg/m2 03/02/2024 Encounters Encounter Location Date Provider Diagnosis [facility] [address] [place] [address] 03/02/2024 Estrella Mosqueda History of adenomato us polyp of colon Z86.010 ; Encounter for long-term (current) use of high-risk medication Z79.899 ; Colon cancer screening Z12.11 and Encounter for other preprocedural examination Z01.818 [facility] [address] [place] [phone] 04/21/2024 Estrella Mosqueda Assessments Encounter Date Diagnosis (ICD Code) Assessment Notes Treatment Notes Treatment Clinical Notes Section Notes 03/02/2024 History of adenomatous polyp of colon (ICD-10 - Z86.010) Overall, Darrian appears quite well. Given his personal history [...] postpone the colonoscopy until later next year. Darrian was comfortable with this plan. Thank you again for allowing me to proceed in Darrian's care. I shall continue to keep you advised of his progress. 03/02/2024 Encounter for long-term (current) use of high-risk medication (ICD-10 - Z79.899) Overall, Darrian appears quite well. Given his personal history [...] postpone the colonoscopy until later next year. Darrian was comfortable with this plan. Thank you again for allowing me to proceed in Darrian's care. I shall continue to keep you [...] WE CAN ALWAYS DELAY THE COLONOSCOPY Overall, Darrian appears quite well. Given his personal history [...] postpone the colonoscopy until later next year. Darrian was comfortable with this plan. Thank you again for allowing me to proceed in Darrian's care. I shall continue to keep you advised of his progress. 03/02/2024 Encounter for other preprocedural examination (ICD-10 - Z01.818) Overall, Darrian appears quite well. Given his personal history [...] postpone the colonoscopy until later next year. Darrian was comfortable with this plan. Thank you again for allowing me to proceed in Darrian's care. I shall continue to keep you advised of his progress. Plan Of Treatment Future Test Test Name Order Date UPPER GI ENDOSCOPY 09/16/2012 COLONOSCOPY 01/03/2019 COLONOSCOPY 03/02/2024 Insurance Providers Payer Name Payer Address Payer Phone Subscriber Number Group Number Insured Name Patient Relationship to Insured Coverage Start Date Coverage End Date MEDICARE OF [place] [address] [place] [address] [id number] ИВАН SHELBY Self - patient is the insured [employer] [address] [place] [address] [id number] DRARIAN SHELBYALD Self - patient is the insured Medical (General) History Medical History History ICD Code Hypertension Hyperlipidemia Denies [place],DM,CVA,Lung disease,renal dise ase Chronic right-sided abdomina l [...]
== END ==
LOC: HO.CARD 13:29
PROVIDERS: PCP Internal Medicine; Visit Provider Internal Medicine
DX: C43.9 Malignant melanoma of skin, unspecified (principal)
CPT/HCPCS: 93005

== ENCOUNTER → 2024-09-11 13:34 | Outpatient (BNV) | payer MEDICARE, OTHER, SELFPAY | PROVIDERS: PCP Internal Medicine; Visit Provider Internal Medicine | DX: C43.9 Malignant melanoma of skin, unspecified (principal) | CPT/HCPCS: 93010 ==

== ENCOUNTER 2024-09-14 14:00 | Outpatient (REF) | payer MEDICARE, OTHER, SELFPAY ==
--- NOTE | ~2024-09-14 | CT_ITS ---
CLINICAL HISTORY: Melanoma CT abdomen and pelvis with contrast Comparison: 03/21/2024 Findings: Lung bases clear. No acute bony abnormalities. Liver and spleen within normal limits. Pancreas and adrenal glands unremarkable. Gallbladder is within normal limits. No significant focal renal abnormalities. Renal cysts without stones or hydronephrosis. Abdominal aorta is normal in caliber. No free fluid or adenopathy in the pelvis. No diverticulitis. Appendix unremarkable. Impression: No acute process This document has been electronically signed by: William Drew MD on 09/15/2024 19:27:54
[2024-09-14] MEDS: iohexoL 350 MG/ML 75 ML INFUS..BTL 85 ML IV (15:07)
--- OUTSIDE RECORDS SUMMARY | 2024-09-14 15:26 | XMS_ITS ---
Author Organization [facility] Address [address] [place] [address] Care Team Providers Care Court Usher Name Role Phone Raghu Contreras MD Primary Care Provider Estrella Ewing [facility] [phone] REASON FOR VISIT screening,hx polyps Encounters Encounter Location Date Provider Diagnosis [facility] [address] [place], [place] [phone] 06/26/2024 Estrella Mosqueda Plan Of Treatment No Information Progress Notes * ИВАН SHELBYDOB:1955 ([age] yo M)Acc No.[id number]:06/26/2024 COLON WITH MAC Patient:?ИВАН SHELBY Provider:?Estrella Mosqueda MD :1955???Age:68 Y???Sex:Male Brown e:06/26/2024 Address:[address] [place], [place] [id number] Pcp:Raghu Contreras MD Subjective: * Chief Complaints: [...] Provider:?Estrella Mosqueda MD Date:? 025 Generated for Joshi ng/Fajusticeg/eTransmitting on:?09/14/2024 03:26 PM EDT
--- OUTSIDE RECORDS SUMMARY | 2024-09-14 15:26 | XMS_ITS | Patient Health Record ---
Author Organization [facility] Address [address] [place] [address] Care Team Providers Care Director Executive Communications Name Role Phone Po Raghu PERES Primary Care Provider Estrella Ewing Unavailable [phone] Allergies No Known Allergies Reason For Referral [...] Status Risk Notes Problem Colon cancer screening (575828730) Colon cancer screening (Z12.11) Active confirmed Problem 347777795 Encounter for screening for malignant neoplasm of colon (Z12.11) Active confirmed Problem History of adenomatous polyp of colon (107825389) History of adenomatous polyp of colon (Z86.010) Active confirmed Problem Pre-procedure evaluation check (908426098) Encounter for other preprocedural examination (Z01.818) Active confirmed Problem Long-term current use of drug therapy (357682024) Encounter for long-term (current) use of high-risk medication (Z79.899) Active confirmed Problem 408826091749990 Pre-procedural examination (Z01.818) Active confirmed Vital Signs Blood pressure diastolic 00 mm Hg 03/02/2024 Height 69 in 03/02/2024 Blood pressure systolic 00 mm Hg 03/02/2024 Weight 206 lbs 03/02/2024 BMI 30.42 kg/m2 03/02/2024 Encounters Encounter Location Date Provider Diagnosis [facility] [address] [place] [phone] 03/02/2024 Estrella Mosqueda History of adenomato us polyp of colon Z86.010 ; Encounter for long-term (current) use of high-risk medication Z79.899 ; Colon cancer screening Z12.11 and Encounter for other preprocedural examination Z01.818 [facility] [address] [place] [phone] 04/21/2024 Estrella Mosqueda Assessments Encounter Date Diagnosis [...] Date MEDICARE OF [place] [address] [place] [address] [id number] ИВАН SHELBY Self - patient is the insured [employer] [address] [place] [id number] DARRIAN SHELBYALD Self - patient is the insured [...]
--- OUTSIDE RECORDS SUMMARY | 2024-09-14 15:26 | XMS_ITS ---
Author Organization [facility] Address [address] [place] [address] Care Team Providers Care Mechanical Specialist Name Role Phone Raghu Contreras MD Primary Care Provider Estrella Ewing Unavailable [phone] Allergies No Known Allergies REASON FOR VISIT [...] Problem History of adenomatous polyp of colon (164283589) History of adenomatous polyp of colon (Z86.010) Active confirmed Problem Colon cancer screening (675472422) Colon cancer screening (Z12.11) Active confirmed Problem Pre-procedure evaluation check (616136899) Encounter for other preprocedural examination (Z01.818) Active confirmed Problem Long-term current use of drug therapy (127534754) Encounter for long-term (current) use of high-risk medication (Z79.899) Active confirmed Vital Signs Blood pressure systolic 00 mm Hg 03/02/20 24 Blood pressure diastolic 00 mm Hg 024 Height 69 in 03/02/2024 Weight 206 lbs 03/02/2024 BMI 30.42 kg/m2 03/02/2024 Encounters Encounter Location Date Provider Diagnosis [facility] [address] [place] [address] 03/02/2024 Estrella Mosqueda History of adenomato us [...] other preprocedural examination (ICD-10 - Z01.818) Overall, Edwadr appears quite well. Given his personal history [...] * ИВАН SHELBYDOB:1955 ([age] yo M)Acc No.[id number]:03/02/2024 Progress Notes Patient:?ИВАН SHELBY Provider:?Estrella Mosqueda MD :1955???Age:68 Y???Sex:Male Brown e:03/02/2024 Address:[address] [place] [address], [place] [address] Pcp:Raghu Contreras MD Subjective: * Chief Complaints: [...] Interpretation: Negative.?Miscellaneous:?Marital status: single. 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 ???Nonsmoker; no alcohol. * Medications:?TakingVitamin C [...] List reviewed and reconciled with the patientDiscontinued Granville 3 300 mg 1 capsule Orally Once [...] Procedure Codes:?3017F COLOR ECTAL CA SCREEN DOC [id number] TOBACCO [id number]-[id number] BP SCR NOT PRFRM REC REASON NOS * Preventive Medicine:? ??Counseling:?Care goal follow-up plan:?Above Normal BMI Follow-up?Giving encouragement to exercise,?BMI management provided?Yes.? * Follow Up:?prn * * Sign off status: Completed true * Provider:?Estrella Mosqueda MD Date:? 024 Generated for Harrison zapata/Rick/Ericitting on:?09/14/2024 03:26 PM EDT History and Physical Notes * [...]
--- OUTSIDE RECORDS SUMMARY | 2024-09-14 15:27 | XMS_ITS ---
Author Organization [facility] Address [address] [place] [address] Care Team Providers Care Leadership Coach Name Role Phone Raghu Contreras MD Primary Care Provider Estrella Ewing Unavailable [phone] Encounters Encounter Location Date Provider Diagnosis [facility] [address] [place] [address] 04/21/2024 Estrella Mosqueda Plan Of Treatment No Information Progress Notes * ИВАН SHELBYDOB:1955 ([age] yo M)Acc No.[id number]:04/21/2024 Patient:?ИВАН SHELBY :1955???Age:68 Y???Sex:Male Address:[address] [facility], [place] [address] * true * Date:? Generated for Harrison zapata/Rick/eTransmitting on:?09/14/2024 03:26 PM EDT
== END 2024-09-14 14:01 | disposition home or self-care (01) ==
LOC: HO.CT 14:00
PROVIDERS: PCP Internal Medicine; Visit Provider Internal Medicine
DX: C43.9 Malignant melanoma of skin, unspecified (principal)
CPT/HCPCS: 74177; Q9967

== ENCOUNTER → 2024-09-14 14:02 | Outpatient (BNV) | payer MEDICARE, OTHER, SELFPAY | PROVIDERS: PCP Internal Medicine; Visit Provider Radiology Diagnostic Radiology | DX: C43.9 Malignant melanoma of skin, unspecified (principal) | CPT/HCPCS: 74177 ==

== ENCOUNTER → 2024-10-09 10:57 | Outpatient (BNV) | payer MEDICARE, OTHER, SELFPAY | PROVIDERS: PCP Internal Medicine; Visit Provider Radiology Diagnostic Radiology | DX: C79.31 Secondary malignant neoplasm of brain (principal) | CPT/HCPCS: 70553 ==

== ENCOUNTER 2024-10-09 11:01 | Outpatient (REF) | payer MEDICARE, OTHER, SELFPAY ==
--- NOTE | ~2024-10-09 | MR_ITS ---
EXAMINATION: MR BRAIN WITHOUT AND WITH CONTRAST CLINICAL INFORMATION: Follow-up brain metastasis. COMPARISON: August 02, 2024. TECHNIQUE: Multiplanar, multisequence MRI of the brain was obtained before and after the intravenous administration of 10 mL gadolinium based (Gadavist) without reported immediate complications.. FINDINGS: Right cerebral hemisphere: There is a 2 mm faint enhancing lesion at the subcortical willoughby-white matter junction near the marginal sulcus/distal. There is a faint 1 mm faint enhancing lesion at the cerebral cortex/willoughby-white matter junction right middle frontal gyrus. Left cerebral hemisphere: There is a faint 1 mm enhancing lesion at the corticomedullary junction/cerebral cortex left middle frontal gyrus. Infratentorial compartment: No overt enhancing lesion. No acute intracranial hemorrhage, mass effect, midline shift, hydrocephalus or herniation. No restricted diffusion. Willoughby-white matter differentiation is normal. Flow-void signal within the main cerebral vessels is normal. Main cerebral venous sinuses are patent without intraluminal filling defects. The right transverse sinus likely dominant. Sellar/suprasellar region is normal. Craniocervical junction is intact and normal. MR/MR head/brain wo/w con IMPRESSION: Overall improved with the kletsel dehe wintun resolved brain metastasis. No acute brain abnormality. Electronically signed by: Aaron Navarro MD 10/11/2024 12:49 PM EDT
[2024-10-09] MEDS: gadobutroL 10 ML VIAL IVPUSH (11:54)
--- OUTSIDE RECORDS SUMMARY | 2024-10-09 13:16 | XMS_ITS | Continuity of Care Document ---
Author Name [facility] Organization [facility] Care Team Providers Care Ragman Name Role Phone [employer] Unavailable Unavailable Medications Combined list of outpatient [...] TABLET, ORAL, MYLAN, 500 ea. BOTTLE Active [id number] 4 2023 90 Pharmac y Data Transac tion Service Facilit y ENALAPRIL MALEATE (enalapril maleate), 10 MG, TABLET, ORAL, SOLCO HEALTHCAR, 1000 ea. BOTTLE Cancele d [id number] 4 [id number] : 2023 0 Pharmac y Data Transac tion Service Facilit y ENALAPRIL MALEATE (ENALAPRIL MALEATE), 10MG, TABLET, ORAL, TARO PHARM [place], 1000 ea. BOTTLE Cancele d [id number] : 2023 0 Pharmac y Data Transac tion Service Facilit y ENALAPRIL MALEATE (ENALAPRIL MALEATE), 10MG, TABLET, ORAL, TARO PHARM [place], 1000 ea. BOTTLE Cancele d [id number] : 2023 0 Pharmac y Data Transac tion Service Facilit y HYDROCHLORO THIAZIDE (HYDROCHLOR OTHIAZIDE), 12.5 MG, CAPSULE, ORAL, UNICHEM PHARMAC, 1000 ea. BOTTLE Active [id number] 4 2023 90 Pharmac y Data Transac tion Service Facilit y SILDENAFIL CITRATE (sildenafil citrate), 100 MG, TABLET, ORAL, AMNEAL PHARMACE, 30 ea. BOTTLE Cancele d [id number] : 2023 0 Pharmac y Data Transac tion Service Facilit y Immunizations Combined list of available immunizations from the Department of Defense and Veterans Affairs facilities. Immunization Series Date Given Administered By Site Reaction Lot Number CVX Code Drug Flight Communications Operator Status Comments Source COVID-19, mRNA, LNP-S, PF, [...] zoster recombina nt DoD zoster live 2016 Avtar LIAO () Not Given zoster live DoD influenza, injectable, quadrivalent, preservative free 2015 NEIL, () Not Given influenza , injectabl e, quadrival ent, preservat jo-ann free [facility] Influenza, seasonal, injectable, preservative free 2014 CHRISTIN, () Not Given Influenza , seasonal, injectabl e, preservat jo-ann free [facility] Influenza, seasonal, injectable, preservative free 2013 BEL WALLER () Not Given Influenza , seasonal, injectabl e, preservat jo-ann free [facility] tetanus and diphtheria toxoids, adsorbed, preservative free, for adult use (2 Lf of tetanus toxoid and 2 Lf of diphtheria toxoid) 1 2001 Unknown, Provider [id number] Zafar Jensen ([facility]) complet ed tetanus and diphtheri a toxoids, adsorbed, preservat jo-ann free, for adult use (2 Lf of tetanus toxoid and 2 Lf of diphtheri a toxoid) [facility] typhoid vaccine, parenteral, other than acetone-kille d, dried 1 2001 Unknown, Provider [id number] Sanofi Pasteur ([facility]MC) complet ed typhoid vaccine, parentera l, other than acetone-k illed, dried DoD influenza virus vaccine, whole virus 1 2001 Unknown, Provider [id number] Sanofi Pasteur ([facility]MC) complet ed influenza virus vaccine, whole virus DoD yellow fever vaccine 1 2001 Unknown, Provider [id number] Sanofi Pasteur (PMC) complet ed yellow fever vaccine DoD meningococcal polysaccharid e vaccine (MPSV4) 1 2001 Unknown, Provider [id number] Sanofi Pasteur ([facility]MC) complet ed meningoco ccal polysacch aride vaccine (MPSV4) DoD influenza virus vaccine, whole virus 1 2000 Unknown, Provider [id number] 16 Leah (WAL) complet ed influenza virus vaccine, whole virus DoD tuberculin skin test; purified protein derivative solution, intradermal 1 2000 Unknown, Provider [id number] 96 Rhonda (CON) complet ed tuberculi n skin test; purified protein derivativ e solution, intraderm al DoD influenza virus vaccine, whole virus 1 1999 Unknown, Provider [id number] 16 Leah (WAL) complet ed influenza virus vaccine, whole virus DoD typhoid vaccine, parenteral, other than acetone-kille d, dried 1 1999 Unknown, Provider [id number] Merieux (IM) complet ed typhoid vaccine, parentera l, other than acetone-k illed, dried DoD tuberculin skin test; purified protein derivative solution, intradermal 1 1998 Unknown, Provider [id number] 96 Rhonda (CON) complet ed tuberculi n skin test; purified protein derivativ e solution, intraderm al DoD influenza virus vaccine, whole virus 1 1998 Unknown, Provider [id number] 16 Leah (Inactive) (LA) complet ed influenza virus vaccine, whole virus DoD influenza virus vaccine, whole virus 2 1997 Unknown, Provider [id number] 16 Rhonda (CON) complet ed influenza virus vaccine, whole virus DoD hepatitis B vaccine, adult dosage 3 1997 Unknown, Provider [id number] Merck (MSD) complet ed hepatitis B vaccine, adult dosage DoD influenza virus vaccine, whole virus 1 1996 Unknown, Provider 16 () complet ed influenza virus vaccine, whole virus [facility] hepatitis A vaccine, adult dosage 2 1996 Unknown, Provider [id number] Merck (MSD) complet ed hepatitis A vaccine, adult dosage [facility] measles, mumps and rubella virus vaccine 1 1995 Unknown, Provider 03 () complet ed measles, mumps and rubella virus vaccine [facility] typhoid vaccine, parenteral, acetone-kille d, dried (U.S. ) 2 1995 Unknown, Provider [id number] Merck (MSD) complet ed typhoid vaccine, parentera l, acetone-k illed, dried (U.S. ) [facility] Ecuadorean Encephalitis Vaccine SC 3 1994 Unknown, Provider 39 () complet ed Ecuadorean Encephali tis Vaccine SC [facility] tetanus and diphtheria toxoids, adsorbed, preservative free, for adult use (2 Lf of tetanus toxoid and 2 Lf of diphtheria toxoid) 1 1992 Unknown, Provider 09 () complet ed tetanus and diphtheri a toxoids, adsorbed, preservat jo-ann free, for adult use (2 Lf of tetanus toxoid and 2 Lf of diphtheri a toxoid) [facility] trivalent poliovirus vaccine, live, oral 1 1983 Unknown, Provider 02 () complet ed trivalent polioviru s vaccine, live, oral [facility] Social History Combined list of available smoking, tobacco, and other social history from Department of Defense and Veterans Affairs facilities. Social History Type Response Date Comment Sour e This section is an empty social history section. [facility]
== END 2024-10-09 11:02 | disposition home or self-care (01) ==
LOC: HO.MRI 11:01
PROVIDERS: PCP Internal Medicine; Visit Provider Internal Medicine
DX: C43.9 Malignant melanoma of skin, unspecified (principal)
CPT/HCPCS: 70553; A9585

== ENCOUNTER 2024-10-20 09:03 | Inpatient (IN) | payer MEDICARE, OTHER, SELFPAY ==
--- NOTE | ~2024-10-20 | CT_ITS ---
EXAMINATION: CTA NECK WITH CONTRAST (STROKE) CTA BRAIN WITH CONTRAST (STROKE) CLINICAL INFORMATION: Blurred vision. COMPARISON: Correlated to CT brain dated October 20, 2024 and July 29, 2024. Correlated to MRI brain dated March 22, 2024. TECHNIQUE: CTA of the head and neck was performed in the axial plane from the mediastinum to the skull vertex using 70 mL Omnipaque 350 intravenous contrast. Additional reformatted multiplanar images including maximum intensity projection MIP images are generated on the CT workstation. No reported immediate complications. This CT examination was performed using dose optimization techniques as appropriate, variously including the following: *Automated exposure control *Adjustment of mA and/or kV according to patient size (this includes techniques or standardized protocols for targeted exams where dose is matched to indication/reason for exam; i.e. extremities or head) *Use of iterative reconstruction technique DLP: 776 mGy centimeter. FINDINGS: The degree of stenosis determined by criteria similar to NASCET. Brain: Please refer to recent CT report as no acute intracranial hemorrhage or acute brain abnormality. Chest CTA: No aneurysm or dissection. Calcified plaques in the aortic arch wall. Neck CTA: Right CCA: Normal patency. No focal stenosis. No abrupt cut off or intimal flap. Right ICA: Normal patency. Small calcified plaque. No focal stenosis. No intimal flap. Left CCA: Normal patency. No focal stenosis. No intimal flap. Left ICA: Normal patency. No focal stenosis. No intimal flap. V1/V2 segments: Normal patency. No focal stenosis. No intimal flap. Left vertebral artery slightly dominant. Brain CTA: Anterior cerebral circulation: ICAs: Calcified plaques in the cavernous segment left ICA. Normal patency. No focal stenosis. No abrupt cut off. MCA's: Normal patency. No focal stenosis. No abrupt cut off. Bifurcation/trifurcation demonstrated no vascular irregularity. ACAs: Normal patency. No focal stenosis. No abrupt cut off. Ophthalmic arteries are patent. Anterior communicating artery is patent. Posterior communicating arteries are patent with small caliber. Posterior cerebral circulation: V3/V4 segments: Normal patency. No focal stenosis. No intimal flap. There is a common trunk for the left anterior inferior cerebral artery and posterior inferior cerebral artery. Right PICA is patent. Basilar artery is patent without focal stenosis or intimal flap. Superior cerebellar arteries are patent. enrollment consultant: Normal patency. No focal stenosis. No abrupt cut off. Ancillary findings: 4 mm calcification right submandibular gland. Secretions in the vallecula. Calcified plaques in the coronary arteries. Pulmonary mosaic pattern. Cervical spondylosis C3 C7. Normal patency of the main cerebral venous sinuses with a dominant right transverse sinus. CT/CT angio head neck STROKE IMPRESSION: No high degree stenosis or dissection. No main cerebral artery occlusion or embolus. 4 mm sialolithiasis, right submandibular gland. This critical test result is communicated to: Dr. Tony Syed, emergency physician at 10:30 AM on October 20, 2024 using [employer]. Electronically signed by: Aaron Navarro MD 10/20/2024 10:39 AM EDT
--- NOTE | ~2024-10-20 | CT_ITS ---
EXAMINATION: CT HEAD WITHOUT CONTRAST (STROKE PROTOCOL) CLINICAL INFORMATION: Stroke protocol. COMPARISON: July 29, 2024. TECHNIQUE: Contiguous axial imaging was performed from the skull base to vertex without intravenous administration of contrast. This CT examination was performed using dose optimization techniques as appropriate, variously including the following: *Automated exposure control *Adjustment of mA and/or kV according to patient size (this includes techniques or standardized protocols for targeted exams where dose is matched to indication/reason for exam; i.e. extremities or head) *Use of iterative reconstruction technique DLP: 750 mGy centimeter. FINDINGS: No acute intracranial hemorrhage, mass effect, midline shift, hydrocephalus or herniation. [place]-white matter differentiation is normal. Posterior cranial fossa contents demonstrated no acute intracranial hemorrhage or mass effect. Normal position of the cerebellar tonsils. Sellar/suprasellar region demonstrated no gross masses. No acute fracture in the bony calvarium. Partially calcified nodules in the soft tissue scalp. No air-fluid levels in the paranasal sinuses. Tympanic cavities and mastoid cells are aerated. CT/CT head for STROKE IMPRESSION: No acute intracranial hemorrhage or acute brain abnormality by CT. Stable brain. This critical result was discussed with Dr. Tony Syed emergency physician at 10:29 AM hours on October 20, 2024.. It was ascertained that the content and urgency of the report was understood at the time of direct communication. Electronically signed by: Aaron Navarro MD 10/20/2024 10:29 AM EDT
--- NOTE | ~2024-10-20 | MR_ITS ---
CLINICAL HISTORY: R/O Stroke. MR brain without contrast. COMPARISON: CT head dated 10/20/24 at 10:09 EDT MR brain dated 10/09/24 at 11:22 EDT FINDINGS: No abnormal diffusion restriction in the brain parenchyma or extra-axial spaces. Small focus of gradient blooming within the superior medial left frontal lobe along the sulci, stable and corresponds with previously seen enhancing lesion in this region. Additional areas of previously seen nodular enhancement within the right cerebral hemisphere are not identified on current noncontrast study. No evidence of mass, mass effect or midline shift. The ventricles are proportional with the degree of mild cerebral volume loss without evidence of hydrocephalus. Basilar cisterns are patent. Cerebellar hemispheres and cerebellar vermis are normal. Fourth ventricle is normal. No brainstem abnormality is identified. Intracranial flow voids are patent. The visualized paranasal sinuses and mastoid air-cells are clear. IMPRESSION: 1. No acute findings. No evidence of ischemia or acute intracranial hemorrhage. 2. Stable small amount of likely hemosiderin deposition within previously seen enhancing nodular lesion in the left frontal lobe. Additional areas of metastatic disease within the right cerebral hemisphere are better visualized on prior contrast exam. This document has been electronically signed by: Christopher Navarrete MD on 10/20/2024 16:23:10
[2024-10-20 09:15] VITALS: BP 135/49; PULSE 63; RESP 18; TEMP 36.6; O2SAT 98; BMI 31.9
--- OUTSIDE RECORDS SUMMARY | 2024-10-20 09:45 | XMS_ITS ---
Author Organization [facility] Address [address] [place] [address] Care Team Providers Care Breakfast Bar Attendant Name Role Phone Raghu Contreras MD Primary Care Provider Estrella Ewing Unavailable [phone] Allergies No Known Allergies REASON FOR VISIT [...] Problem History of adenomatous polyp of colon (987757847) History of adenomatous polyp of colon (Z86.010) Active confirmed Problem Colon cancer screening (998065634) Colon cancer screening (Z12.11) Active confirmed Problem Pre-procedure evaluation check (367508502) Encounter for other preprocedural examination (Z01.818) Active confirmed Problem Long-term current use of drug therapy (711665095) Encounter for long-term (current) use of high-risk medication (Z79.899) Active confirmed Vital Signs Blood pressure systolic 00 mm Hg 03/02/20 24 Blood pressure diastolic 00 mm Hg 024 Height 69 in 03/02/2024 Weight 206 lbs 03/02/2024 BMI 30.42 kg/m2 03/02/2024 Encounters Encounter Location Date Provider Diagnosis [facility] [address] [place] [address] 03/02/2024 Estrella Mosqueda History of adenomato us [...] * ИВАН SHELBYDOB:1955 ([age] yo M)Acc No.[id number]:03/02/2024 Progress Notes Patient:?ИВАН SHELBY Provider:?Estrella Mosqueda MD :1955???Age:68 Y???Sex:Male Brown e:03/02/2024 Address:[address] [place] [address], [place] [address] Pcp:Raghu Contreras MD Subjective: * Chief Complaints: [...] Interpretation: Negative.?Miscellaneous:?Marital status: single. 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 ???Nonsmoker; no alcohol. * [...] List reviewed and reconciled with the patientDiscontinued Mead 3 300 mg 1 capsule Orally Once [...] Procedure Codes:?3017F COLOR ECTAL CA SCREEN DOC HHI0707S TOBACCO NON-UAOSR3403 BP SCR NOT PRFRM REC REASON NOS * Preventive Medicine:? ??Counseling:?Care goal follow-up plan:?Above Normal BMI Follow-up?Giving encouragement to exercise,?BMI management provided?Yes.? * Follow Up:?prn * * Sign off status: Completed true * Provider:?Estrella Mosqueda MD Date:? 024 Generated for Harrison zapata/Rick/Ericitting on:?10/20/2024 09:44 AM EDT History and Physical Notes * HPI [...]
--- OUTSIDE RECORDS SUMMARY | 2024-10-20 09:45 | XMS_ITS | Continuity of Care Document ---
Author Name [facility] Organization [facility] Care Team Providers Care Hardwood Floor Sander Name Role Phone [facility] Unavailable Unavailable Medications Combined list of outpatient [...] TABLET, ORAL, MYLAN, 500 ea. BOTTLE Active [id number] 2023 90 Pharmac y Data Transac tion Service Facilit y ENALAPRIL MALEATE (enalapril maleate), 10 MG, TABLET, ORAL, SOLCO HEALTHCAR, 1000 ea. BOTTLE Cancele d [id number] : 2023 0 Pharmac y Data Transac tion Service Facilit y ENALAPRIL MALEATE (ENALAPRIL MALEATE), 10MG, TABLET, ORAL, TARO PHARM USA, 1000 ea. BOTTLE Cancele d [id number] : 2023 0 Pharmac y Data Transac tion Service Facilit y ENALAPRIL MALEATE (ENALAPRIL MALEATE), 10MG, TABLET, ORAL, TARO PHARM [place], 1000 ea. BOTTLE Cancele d [id number] : 2023 0 Pharmac y Data Transac tion Service Facilit y HYDROCHLORO THIAZIDE (HYDROCHLOR OTHIAZIDE), 12.5 MG, CAPSULE, ORAL, UNICHEM PHARMAC, 1000 ea. BOTTLE Active [id number] 2023 90 Pharmac y Data Transac tion Service Facilit y SILDENAFIL CITRATE (sildenafil citrate), 100 MG, TABLET, ORAL, AMNEAL PHARMACE, 30 ea. BOTTLE Cancele d [id number] : 2023 0 Pharmac y Data Transac tion Service Facilit y Immunizations Combined list of available immunizations from the Department of Defense and Veterans Affairs facilities. Immunization Series Date Given Administered By Site Reaction Lot Number CVX Code Drug Certified Activities Director Status Comments Source COVID-19, mRNA, LNP-S, PF, [...] injectabl e, quadrival ent, preservat jo-ann free [facility] Influenza, seasonal, injectable, preservative free 2014 CHRISTIN, () Not Given Influenza , seasonal, injectabl e, preservat jo-ann free [facility] Influenza, seasonal, injectable, preservative free 2013 BEL WALLER () Not Given Influenza , seasonal, injectabl e, preservat jo-ann free [facility] tetanus and diphtheria toxoids, adsorbed, preservative free, for adult use (2 Lf of tetanus toxoid and 2 Lf of diphtheria toxoid) 1 2001 Unknown, Provider [id number] Zafar Jensen ([facility]) complet ed tetanus and diphtheri a toxoids, adsorbed, preservat jo-ann free, for adult use (2 Lf of tetanus toxoid and 2 Lf of diphtheri a toxoid) [facility] typhoid vaccine, parenteral, other than acetone-kille d, dried 1 2001 Unknown, Provider [id number] Sanofi Pasteur ([facility]) complet ed typhoid vaccine, parentera l, other than acetone-k illed, dried DoD influenza virus vaccine, whole virus 1 2001 Unknown, Provider [id number] Sanofi Pasteur ([facility]MC) complet ed influenza virus vaccine, whole virus DoD yellow fever vaccine 1 2001 Unknown, Provider [id number] Sanofi Pasteur ([facility]MC) complet ed yellow fever vaccine DoD meningococcal polysaccharid e vaccine (MPSV4) 1 2001 Unknown, Provider [id number] Sanofi Pasteur ([facility]MC) complet ed meningoco ccal polysacch aride vaccine (MPSV4) DoD influenza virus vaccine, whole virus 1 2000 Unknown, Provider [id number] Leah (WAL) complet ed influenza virus vaccine, whole virus DoD tuberculin skin test; purified protein derivative solution, intradermal 1 2000 Unknown, Provider [id number] Rhonda (CON) complet ed tuberculi n skin test; purified protein derivativ e solution, intraderm al DoD influenza virus vaccine, whole virus 1 1999 Unknown, Provider [id number] 16 Leah (WAL) complet ed influenza virus vaccine, whole virus DoD typhoid vaccine, parenteral, other than acetone-kille d, dried 1 1999 Unknown, Provider [id number] Merieux (IM) complet ed typhoid vaccine, parentera l, other than acetone-k illed, dried DoD tuberculin skin test; purified protein derivative solution, intradermal 1 1998 Unknown, Provider [id number] Rhonda (CON) complet ed tuberculi n skin test; purified protein derivativ e solution, intraderm al DoD influenza virus vaccine, whole virus 1 1998 Unknown, Provider [id number] 16 Leah (Inactive) ([place]) complet ed influenza virus vaccine, whole virus DoD influenza virus vaccine, whole virus 2 1997 Unknown, Provider [id number] Rhonda (CON) complet ed influenza virus vaccine, whole virus DoD hepatitis B vaccine, adult dosage 3 1997 Unknown, Provider [id number] Merck (MSD) complet ed hepatitis B vaccine, adult dosage DoD influenza virus vaccine, whole virus 1 1996 Unknown, Provider 16 () complet ed influenza virus vaccine, whole virus [facility] hepatitis A vaccine, adult dosage 2 1996 Unknown, Provider [id number] Merck (MSD) complet ed hepatitis A vaccine, adult dosage [facility] measles, mumps and rubella virus vaccine 1 1995 Unknown, Provider 03 () complet ed measles, mumps and rubella virus vaccine [facility] typhoid vaccine, parenteral, acetone-kille d, dried (U.S. ) 2 1995 Unknown, Provider [id number] Merck (MSD) complet ed typhoid vaccine, parentera l, acetone-k illed, dried (U.S. ) DoD Afghan Encephalitis Vaccine SC 3 1994 Unknown, Provider 39 () complet ed Afghan Encephali tis Vaccine SC [facility] tetanus and diphtheria toxoids, adsorbed, preservative free, for adult use (2 Lf of tetanus toxoid and 2 Lf of diphtheria toxoid) 1 1992 Unknown, Provider 09 () complet ed tetanus and diphtheri a toxoids, adsorbed, preservat jo-ann free, for adult use (2 Lf of tetanus toxoid and 2 Lf of diphtheri a toxoid) [facility] trivalent poliovirus vaccine, live, oral 1 1983 Unknown, Provider 02 () complet ed trivalent polioviru s vaccine, live, oral [facility] Procedures Combined list of: 1) Procedures from Department of Veterans Affairs facilities going back up to thelast 18 months, not all MD non-surgical procedures are included; 2) All procedures from the Department of Defense facilities. Procedure Procedure Type Code Date Perfomer Comments Sour e ELECTROCARDIOGRAM, ROUTINE ECG WITH AT LEAST 12 LEADS; INTERPRETATION AND REPORT ONLY 07/13/2002 [facility] SPECIAL REPORTS SUCH INSURANCE FORMS, MORE THAN THE INFORMATION CONVEYED IN THE USUAL MEDICAL COMMUNICATIONS OR STANDARD REPORTING FORM 06/05/2002 [facility] UNLISTED OPHTHALMOLOGICAL SERVICE OR PROCEDURE 03/07/2001 [facility] TYPHOID VACCINE, CAPSULAR POLYSACCHARIDE (VICPS), FOR INTRAMUSCULAR USE 03/31/2000 [facility] Social History Combined list of available smoking, tobacco, and other social history from Department of Defense and Veterans Affairs facilities. Social History Type Response Date Comment Sourc e This section is an empty social history section. [facility]
--- OUTSIDE RECORDS SUMMARY | 2024-10-20 09:45 | XMS_ITS | Patient Health Record ---
Author Organization [facility] Address [address] [place] [address] Care Team Providers Care Arts Therapist Name Role Phone Raghu Contreras MD Primary Care Provider Estrella Ewing Unavailable [phone] Allergies No Known Allergies Reason For Referral [...] Status Risk Notes Problem Colon cancer screening (910430571) Colon cancer screening (Z12.11) Active confirmed Problem 901685022 Encounter for screening for malignant neoplasm of colon (Z12.11) Active confirmed Problem History of adenomatous polyp of colon (223191495) History of adenomatous polyp of colon (Z86.010) Active confirmed Problem Pre-procedure evaluation check (387543716) Encounter for other preprocedural examination (Z01.818) Active confirmed Problem Long-term current use of drug therapy (938041511) Encounter for long-term (current) use of high-risk medication (Z79.899) Active confirmed Problem 934215672830830 Pre-procedural examination (Z01.818) Active confirmed Vital Signs Blood pressure diastolic 00 mm Hg 03/02/2024 Height 69 in 03/02/2024 Blood pressure systolic 00 mm Hg 03/02/2024 Weight 206 lbs 03/02/2024 BMI 30.42 kg/m2 03/02/2024 Encounters Encounter Location Date Provider Diagnosis [facility] [address] [place] [phone] 03/02/2024 Estrella Mosqueda History of adenomato us polyp of colon Z86.010 ; Encounter for long-term (current) use of high-risk medication Z79.899 ; Colon cancer screening Z12.11 and Encounter for other preprocedural examination Z01.818 [facility] [address] [place] [address] 04/21/2024 Estrella Mosqueda Assessments Encounter Date Diagnosis [...] Date MEDICARE OF [place] [address] [place] [address] [id number] ИВАН SHELBY Self - patient is the insured [email or web address] [address] [place] [id number] DARRIAN SHELBYALD Self - patient is the insured Medical (General) History Medical History History ICD Code Hypertension Hyperlipidemia Denies [place],DM,CVA,Lung disease,renal dise ase Chronic right-sided abdomina l [...]
--- OUTSIDE RECORDS SUMMARY | 2024-10-20 09:45 | XMS_ITS ---
Author Organization [facility] Address [address] [place] [address] Care Team Providers Care Vegetable Worker Name Role Phone Raghu Contreras MD Primary Care Provider Estrella Ewing [facility] [phone] Encounters Encounter Location Date Provider Diagnosis [facility] [address] [place] [phone] 04/21/2024 Estrella Mosqueda Plan Of Treatment No Information Progress Notes * ИВАН SHELBYDOB:1955 ([age] yo M)Acc No.[id number]:04/21/2024 Patient:?ИВАН SHELBY :1955???Age:68 Y???Sex:Male Address:[address], [place] [address] * true * Date:? Generated for Harrison zapata/Rick/eTransmitting on:?10/20/2024 09:45 AM EDT
--- OUTSIDE RECORDS SUMMARY | 2024-10-20 09:45 | XMS_ITS ---
Author Organization [facility] Address [address] [place] [address] Care Team Providers Care Safe Deposit Attendant Name Role Phone Raghu Contreras MD Primary Care Provider Estrella Ewing [facility] [phone] REASON FOR VISIT screening,hx polyps Encounters Encounter Location Date Provider Diagnosis [facility] Outpatient [address], [place] [id number] 06/26/2024 Estrella Mosqueda Plan Of Treatment No Information Progress Notes * ИВАН SHELBYDOB:1955 ([age] yo M)Acc No.[id number]:06/26/2024 COLON WITH MAC Patient:?ИВАН SHELBY Provider:?Estrella Mosqueda MD :1955???Age:68 Y???Sex:Male Brown e:06/26/2024 Address:[address] [place], [place] [id number] Pcp:Raghu Contreras MD Subjective: * Chief Complaints: [...] Mosqueda MD Date:? 025 Generated for Printi ng/Fajusticeg/eTransmitting on:?10/20/2024 09:44 AM EDT
--- NOTE | 2024-10-20 09:54 | ECG_ITS ---
Test Reason : STROKE Blood Pressure : */* mmHG Vent. Rate : 64 BPM Atrial Rate : 64 BPM P-R Int : 166 ms QRS Dur : 80 ms QT Int : 424 ms P-R-T Axes : 40 -10 -39 degrees QTcB Int : 437 ms Normal sinus rhythm Nonspecific ST and T wave abnormality Abnormal ECG When compared with ECG of 11-Sep-2024 13:29, No significant change was found Referred By: Tony Syed Electronically Signed By: HAILEY MILIAN
--- NOTE | 2024-10-20 09:56 | ED.NEUROSD ---
HPI - Neuro Symptoms/Deficit General Chief Complaint: Neuro Symptoms/Deficit Stated Complaint: Foggy Eye Vision (R) Time Seen by Provider: 10/20/24 09:46 Source: patient Mode of arrival: ambulatory Limitations: no limitations History of Present Illness HPI Narrative: This is a 68-year-old man with a past medical history of prostate cancer status post radical prostatectomy, nephrolithiasis, osteoarthritis, hypertension, hyperlipidemia, metastatic melanoma who presents for evaluation of visual field loss. Patient states this started at 8:00pm last night. He states vision loss only in his from his right visual field. He states he noted black in his visual field. He states no eye pain. He states no visual changes in his left eye. He states taking no blood thinners. He states no trauma. He states he had some associated headahce 1 day prior to presentation. He states 1 episodes of NBNB emesis. He state no fever. He states no chest pain or dyspnea. He state no abdominal pain. He states no neck pain. He states no speech changes, dysphagia, paresthesias or extremity weakness. Related Data Home Medications ?Medication ?Instructions ?Recorded ?Confirmed ascorbic acid (vitamin C) 1,000 mg 1 g PO DAILY 05/21/20 09/25/24 tablet multivitamin-ferrous 1 tab PO DAILY 05/21/20 09/25/24 fumarate-folic acid 18 mg-400 mcg tablet (Centrum) omega-3 fatty acids 1,000 mg 1,000 mg PO DAILY 05/21/20 09/25/24 capsule diphenhydramine HCl 25 mg tablet 25 mg PO BID PRN Rash 05/27/24 09/25/24 (Benadryl Allergy) gwvpfed-muirtgnoqrepl-yzzpwodz 250 1 tab PO Q4-6H PRN Headache 07/31/24 09/25/24 mg-250 mg-65 mg tablet (Excedrin Migraine) psyllium husk 0.4 gram capsule 0.4 g PO BEDTIME 07/31/24 09/25/24 (Fiber (psyllium husk)) prednisone 20 mg tablet 15 mg PO DAILY 09/07/24 09/25/24 Previous Rx's ?Medication ?Instructions ?Recorded enalapril maleate 10 mg tablet 10 mg PO DAILY #90 tabs 03/08/24 atorvastatin 10 mg tablet 10 mg PO BEDTIME #90 tabs 12/20/24 hydrochlorothiazide 12.5 mg capsule 12.5 mg PO DAILY #90 caps 06/02/24 binimetinib 15 mg tablet 45 mg (3 x 15 mg) PO Q12H #180 tabs 08/18/24 encorafenib 75 mg capsule 450 mg (6 x 75 mg) PO DAILY #180 08/18/24 (Braftovi) caps sulfamethoxazole 800 1 tab PO 3XW #30 tabs 08/18/24 mg-trimethoprim 160 mg tablet (Bactrim DS) metoprolol succinate 25 mg 25 mg PO DAILY #90 tabs 09/01/24 tablet,extended release 24 hr omeprazole 20 mg capsule,delayed 20 mg PO DAILY #90 caps 09/01/24 release ondansetron 8 mg disintegrating 8 mg PO Q8H PRN Nausea #30 tabs 09/25/24 tablet Allergies Allergy/AdvReac Type Severity Reaction Status Date / Time No Known Allergies Allergy Verified 10/20/24 09:19 Review of Systems Review of Systems: ROS as per [facility] Past Medical History Medical History (Updated 10/20/24 @ 12:57 by Tony Syed MD) Metastasis to brain Aseptic meningitis Obesity (BMI 30.0-34.9) PSA elevation Overweight (BMI 25.0-29.9) Finger fracture, right Nephrolithiasis Osteoarthritis Hypercholesterolemia Hypertension Surgical History Melanoma History of tonsillectomy Family History Family History Mother Bladder cancer Father Prostate cancer Social History Social History Household Members: None Housing: House Do you presently have visiting nurse or other home services: No Alcohol intake: former Patient Tobacco Use Status: Never used Tobacco Smoked in Last 30 Days: No e-Cigarette/Vaping Use: Never Used Second Hand Smoke Exposure: No Advance Directives: Yes Advance Directives on File: Yes Advance Directives Date on File: 09/22/22 service: Yes ([employer]- 20 yrs) Current occupational status: employed Sexual orientation: Straight/Heterosexual Gender identity: Male Cognitive needs: No Hearing needs: No Vision needs: Yes Physical Exam Vital Signs: Vital Signs: Last Vital Signs Temp 97.8 F 10/20/24 09:15 Pulse 63 10/20/24 09:15 Resp 18 10/20/24 09:15 BP 135/49 L 10/20/24 09:15 Pulse Ox 98 10/20/24 09:15 O2 Del Method Room Air 10/20/24 09:15 BMI result Body Mass Index 31.9 Gen: NAD, AOx3 HEENT: NCAT, EOMI, normal conjunctiva CV: RRR Pulm: CTAB, no increased work of breathing GI: Soft, NTND, no rebound, guarding or rigidity Neuro: GCS 15, no dysmetria/ no dysdiadochokinesia, 5/5 BUE/BLE strength, no loss of sensation to face/BUE/BLE, symmetrical face, midline tongue protrusion, NIHSS 1 for vision loss (right eye superior medial quadrantopia)) Medications Administered Discontinued Medications Generic Name Dose Route Start Last Admin Trade Name Freq PRN Reason Stop Dose Admin Aspirin 81 mg 10/20/24 12:48 10/20/24 12:59 Aspirin 81 Mg Tab.Chew PO 10/20/24 12:49 81 mg ONCE ONE Administration Iohexol 100 ml 10/20/24 10:19 10/20/24 10:19 Iohexol 350 Mg/Ml 100 Ml Infus..Btl IV 10/20/24 10:20 70 ml ONCE ONE Administration Medical Decision Making Medical Decision Making [facility] Narrative: 0954 - code stroke activated at time of my history and exam. Patient is noted to have visual field deficit as above. NIHSS 1. Thrombolysis is contraindicated given duration of symptoms. Further, per chart review patient had Brain MRI in July and September demonstrating brain metastases. 1029 - I discussed with Radiologist, Dr. Navarro, who states CT imaging is negative for any acute findings Differential diagnosis includes, but is not limited to intracranial hemorrhage, acute ischemic stroke, mass lesion. Patient is afebrile and hemodynamically stable on room air. NIHSS 1. As above thrombolysis is contraindicated. There is no large vessel occlusion and thus patient is not a candidate for thrombectomy. Bedside ocular POCUS reveals no evidence of retinal detachment /vitreous hemorrhage. I discussed the patient's case with neurologist as below. I discussed the patient's case and management with admitting hospitalist, Janett Bae, who accepts patient for admission. Critical Care Time: A total of 45 minutes spent in direct patient care with coordinating critical resuscitation, procedures, reviewing records, discussing with consultants, reviewing labs, and/or managing patient. Admission/Observation Consideration of admission/observation: Escalation of care including admission/observation considered Consult Healthcare Provider Management of the patient was discussed with: Hospitalist and Electrical Superintendent I discussed with the data security consultant neurologist, Dr. Coates, who recommends 81mg po aspirin at this time, which is provided Lab Data MDM Lab Attestation statement: I reviewed the patient's lab results. Labs as below and remarkable for any acute / emergent findings. There is stable chronic anemia. There is no evidence of acute kidney injury or electrolyte derangement. Coagulation studies are unremarkable. Troponin undetectable. Lipid panel notable for elevated triglycerides at 154. 10/20/24 10:07 10/20/24 10:07 Labs: Lab Results 10/20/24 10/20/24 Range/Units 09:59 10:07 WBC 4.7 L (4.8-10.8) X10*3/uL RBC 3.64 L (4.60-5.80) X10*6/uL Hgb 10.9 L (14.0-18.0) g/dl Hct 31.1 L (42.0-52.0) % MCV 85.4 (80.0-98.0) fL MCH 29.9 (27.0-33.0) pg MCHC 35.0 (31.0-36.0) g/dl RDW 14.1 (11.0-16.0) % Plt Count 193 (160-400) X10*3/uL MPV 8.5 L (9.4-12.4) fL Immature Gran % (Auto) 0.2 (0.0-0.4) % Neut % (Auto) 40.0 L (45-73) % Lymph % (Auto) 40.1 H (20-40) % [place] % (Auto) 16.7 H (2-11) % Eos % (Auto) 1.9 (0-4) % Baso % (Auto) 1.1 (0-2) % Lymph # (Auto) 1.9 (1.2-4.9) X10*3/uL [place] # (Auto) 0.8 (0.1-1.2) X10*3/uL Eos # (Auto) 0.1 (0.0-0.4) X10*3/uL Baso # (Auto) 0.1 (0.0-0.2) X10*3/uL Abs Immat Gran (auto) 0.01 (0.00-0.03) X10*3/uL Absolute Neuts (auto) 1.9 L (2.0-8.3) x10*3/uL Absolute Nucleated RBC 0.000 (0.0-0.012) X10*3/uL Nucleated RBC % (auto) 0.0 (0.0-0.2) /100WBC PT 11.9 (10.9-12.4) SEC Whole Blood PT 11.8 (11.1-13.5) sec INR 1.0 (0.9-1.1) Whole Blood INR 1.0 (0.9-1.1) APTT 30.8 (26.0-36.8) SEC Sodium 130 L (135-145) mmol/L Potassium 4.5 (3.3-5.1) mmol/L Chloride 97 (96-108) mmol/L Carbon Dioxide 25 (22-29) mmol/L Anion Gap 13 (12-20) BUN 8 L (9-16) mg/dL Creatinine 0.77 (0.5-1.4) mg/dL Estim Creat Clear Calc 110.7 Estimated GFR > 60 POC Glucose 93 (60-115) mg/dL Random Glucose 87 (60-115) mg/dL Calcium 8.6 (8.4-10.2) mg/dL Troponin I High Sens < 2.7 D (<3.5-35.0) ng/L Triglycerides 154 H (<150) mg/dL Cholesterol 163 (<200) mg/dL LDL Cholesterol, Calc 89 (<100) mg/dL HDL Cholesterol 44 (>40) mg/dL Independent Interpretation I performed an independent interpretation of an: EKG Interpretation: ECG shows sinus rhythm at 64bpm, TN 166, QRS 80, QTc 437, no STEMI Radiology Impression Discussion of test interpretation with radiology: I discussed test interpretation with the radiologist and I have reviewed the radiologist's reading. Radiologist Impression: CT/CT angio head neck STROKE IMPRESSION: No high degree stenosis or dissection. No main cerebral artery occlusion or embolus. 4 mm sialolithiasis, right submandibular gland. This critical test result is communicated to: Dr. Tony Syed, emergency physician at 10:30 AM on October 20, 2024 using [employer] connect. Electronically signed by: Aaron Navarro MD 10/20/2024 10:39 AM EDT RP Dictated By: Aaron Ordonez MD Signed By: <Electronically signed by Aaron Cheatham MD in OV> 10/20/[address]/CT head for STROKE IMPRESSION: No acute intracranial hemorrhage or acute brain abnormality by CT. Stable brain. This critical result was discussed with Dr. Tony Syed emergency physician at 10:29 AM hours on October 20, 2024.. It was ascertained that the content and urgency of the report was understood at the time of direct communication. Electronically signed by: Aaron Navarro MD 10/20/2024 10:29 AM EDT RP Dictated By: Aaron Ordonez MD Signed By: <Electronically signed by Aaron Cheatham MD in OV> 10/20/24 1029 Discharge Plan Discharge Clinical Impression: Loss of part of visual field Patient Disposition: Admitted As Inpatient Prescriptions: No Action enalapril maleate 10 mg tablet 10 mg PO DAILY Qty: 90 2RF binimetinib 15 mg Tablet 45 mg PO Q12H Qty: 180 3RF Braftovi 75 mg Capsule 450 mg PO DAILY Qty: 180 3RF sulfamethoxazole-trimethoprim [Bactrim DS] 800-160 mg Tablet 1 tab PO 3XW Qty: 30 2RF omeprazole 20 mg capsule,delayed release(DR/EC) 20 mg PO DAILY Qty: 90 0RF metoprolol succinate 25 mg Tablet Extended Release 24 Hr 25 mg PO DAILY Qty: 90 0RF Protocol: Hold for SBP/HR < HOLD for SBP < : 90 HOLD for HR < : 60 ondansetron 8 mg Tablet,Disintegrating 8 mg PO Q8H PRN (Reason: Nausea) Qty: 30 3RF diphenhydramine HCl [Benadryl Allergy] 25 mg Tablet 25 mg PO BID PRN (Reason: Rash) Excedrin Migraine 250-250-65 mg Tablet 1 tab PO Q4-6H PRN (Reason: Headache) psyllium husk [Fiber (psyllium husk)] 0.4 gram Capsule 0.4 g PO BEDTIME omega-3 fatty acids 1,000 mg capsule 1,000 mg PO DAILY ascorbic acid (vitamin C) 1,000 mg tablet 1 g PO DAILY Centrum 18-400 mg-mcg tablet 1 tab PO DAILY atorvastatin 10 mg tablet 10 mg PO BEDTIME Qty: 90 3RF hydrochlorothiazide 12.5 mg capsule 12.5 mg PO DAILY Qty: 90 3RF prednisone 20 mg tablet 15 mg PO DAILY Print Language: Romanian
[2024-10-20 10:03] LABS: Prothrombin Time Whole Bld POC 11.8 sec (11.1-13.5)
[2024-10-20 10:04] LABS: Glucose, Whole Blood 93 mg/dL (60-115)
[2024-10-20 10:10] LABS: MANUAL DIFF FLAG NO
[2024-10-20 10:12] LABS: Basophils Absolute Auto 0.1 X10*3/uL (0.0-0.2); Basophils Percent Auto 1.1 % (0-2); Eosinophils Absolute Auto 0.1 X10*3/uL (0.0-0.4); Eosinophils Percent Auto 1.9 % (0-4); Hematocrit 31.1 % (42.0-52.0); Hemoglobin 10.9 g/dl (14.0-18.0); Imm Gran Abs Auto 0.01 X10*3/uL (0.00-0.03); Imm Gran Pct Auto 0.2 % (0.0-0.4); Lymphocytes Absolute Auto 1.9 X10*3/uL (1.2-4.9); Lymphocytes Percent Auto 40.1 % (20-40); Mean Corpuscular Hemoglobin 29.9 pg (27.0-33.0); Mean Corpuscular Volume 85.4 fL (80.0-98.0); Mean Platelet Volume 8.5 fL (9.4-12.4); Monocytes Absolute Auto 0.8 X10*3/uL (0.1-1.2); Monocytes Percent Auto 16.7 % (2-11); Neutrophils Absolute Auto 1.9 x10*3/uL (2.0-8.3); Platelet Count 193 X10*3/uL (160-400); Red Blood Count 3.64 X10*6/uL (4.60-5.80); Red Cell Distribution Width 14.1 % (11.0-16.0); White Blood Count 4.7 X10*3/uL (4.8-10.8)
[2024-10-20] MEDS: iohexoL 350 MG/ML 100 ML INFUS..BTL IV (10:19)
[2024-10-20 10:23] LABS: Prothrombin Time 11.9 SEC (10.9-12.4)
[2024-10-20 10:26] LABS: Partial Thromboplastin Time 30.8 SEC (26.0-36.8); Stroke Lab Use COMPLETE
[2024-10-20 10:33] LABS: Troponin-I High Sensitivity < 2.7 ng/L (<3.5-35.0)
[2024-10-20 10:35] LABS: Anion Gap 13 (12-20); Blood Urea Nitrogen 8 mg/dL (9-16); Calcium 8.6 mg/dL (8.4-10.2); Carbon Dioxide 25 mmol/L (22-29); Chloride 97 mmol/L (96-108); Cholesterol 163 mg/dL (<200); Creatinine Clr Calc Pharmacy 110.7; Estimated Glomerular Filt Rate > 60; Glucose Random 87 mg/dL (60-115); HDL Cholesterol 44 mg/dL (>40); LDL Cholesterol Calculated 89 mg/dL (<100); Potassium 4.5 mmol/L (3.3-5.1); Sodium 130 mmol/L (135-145); Triglycerides 154 mg/dL (<150)
--- NOTE | 2024-10-20 11:18 | PC.NURSE ---
pt comes in reporting right sided loss of vision starting last night at 1999. He has no unilateral weakens, slurred or altered speech or other neuro deficits. Stroke protocol initiated by Dr. Syed. EKG done, labs and POC
[2024-10-20] MEDS: Aspirin 81 MG TAB.CHEW PO (12:59)
--- NOTE | 2024-10-20 13:06 | PM.IMHP ---
History of Present Illness Date of Service: 10/20/24 Attending physician on admission: Rodger Hamlin Chief Complaint: Right eye vision loss Pt is a 68-year-old male with a PMH significant for?metastatic melanoma with known mets to brain, currently on chemotherapy follows with Dr. Smalls, hx of prostate cancer s/p radical prostatectomy, nephrolithiasis, hx of aseptic meningitis, osteoarthritis, HLD, HTN, and GERD who presents to the ED with?sudden onset right eye vision loss since last night. Pt reports was sitting in his recliner watching TV when he stood up and noticed that he had ?offset view where view out of right eye was black in top half. Also experienced 5/10 pain with right eye movement. No headache at that time. Did feel off balance and had some gait instability, but no significant hemiparesis. Denies dysarthria or difficulty word above baseline. Chronic lightheadedness with position changes and chronic fatigue around baseline. Pt went to bed and when vision loss persisted this morning called Oncology as vision changes are a known side effect from chemotherapy medication. Was told to immediately come to the ED for further evaluation. Pt continues to experience right field vision loss. ED clinician contacted Oncology who suggested admission to the hospital, stroke workup, and holding all chemotherapy medication. In the ED pt with soft BP as low as 114/59, vitals otherwise stable and WNL. Labs were significant for normocytic anemia of 10.9/31.1 and sodium 130. Renal function WNL. Troponins negative. Lipid profile largely WNL. Tested negative for flu, COVID, RSV. CT?of head negative for acute intracranial hemorrhage or acute brain abnormality. CTA of head/neck without high degree stenosis or dissection and negative for cerebral artery occlusion or embolus. EKG demonstrated normal sinus rhythm nonspecific ST a abnormalities. Pt was treated in the ED with aspirin. Pt is admitted to the hospital for treatment and further evaluation of acute right-sided vision loss concerning for possible acute CVA. Review of Systems Review of Systems: Negative except for that which is stated in the HPI. [facility] Medical History Metastasis to brain Aseptic meningitis Obesity (BMI 30.0-34.9) PSA elevation Overweight (BMI 25.0-29.9) Finger fracture, right Nephrolithiasis Osteoarthritis Hypercholesterolemia Hypertension Family History Mother Bladder cancer Father Prostate cancer Surgical History Melanoma History of tonsillectomy Social History Household Members: None Housing: House Do you presently have visiting nurse or other home services: No Alcohol intake: former Patient Tobacco Use Status: Never used Tobacco Smoked in Last 30 Days: No e-Cigarette/Vaping Use: Never Used Second Hand Smoke Exposure: No Advance Directives: Yes Advance Directives on File: Yes Advance Directives Date on File: 09/22/22 service: Yes ([employer]- 20 yrs) Current occupational status: employed Sexual orientation: Straight/Heterosexual Gender identity: Male Cognitive needs: No Hearing needs: No Vision needs: Yes Meds Allergies Allergy/AdvReac Type Severity Reaction Status Date / Time No Known Allergies Allergy Verified 10/20/24 09:19 Home Medications ?Medication ?Instructions ?Recorded ?Confirmed ?Last Taken ?Type ascorbic acid (vitamin C) 1,000 mg 1 g PO DAILY 05/21/20 10/20/24 10/19/24 History tablet multivitamin-ferrous 1 tab PO DAILY 05/21/20 10/20/24 10/19/24 History fumarate-folic acid 18 mg-400 mcg tablet (Centrum) omega-3 fatty acids 1,000 mg 1,000 mg PO DAILY 05/21/20 10/20/24 10/19/24 History capsule diphenhydramine HCl 25 mg tablet 25 mg PO DAILY PRN Allergy Symptoms 05/27/24 10/20/24 10/19/24 History (Benadryl Allergy) bxghrpk-abnonegqrmrpy-fmgpcted 250 1 tab PO Q4-6H PRN Headache 07/31/24 10/20/24 10/19/24 History mg-250 mg-65 mg tablet (Excedrin Migraine) psyllium husk 0.4 gram capsule 0.4 g PO BEDTIME 07/31/24 10/20/24 10/19/24 History (Fiber (psyllium husk)) binimetinib 15 mg tablet (Mektovi) 45 mg PO BID@0730,1930 10/20/24 10/20/24 10/19/24 History omeprazole 20 mg capsule,delayed 20 mg PO DAILY@0630 10/20/24 10/20/24 10/19/24 History release prednisone 10 mg tablet 5 mg PO DAILY 10/20/24 10/20/24 10/19/24 History sulfamethoxazole 800 1 tab PO Q48H 10/20/24 10/20/24 10/18/24 History mg-trimethoprim 160 mg tablet (Bactrim DS) Physical Exam Vital Signs and Narrative: Vital Signs: Last Vital Signs Temp 97.8 F 10/20/24 09:15 Pulse 63 10/20/24 09:15 Resp 18 10/20/24 09:15 BP 135/49 L 10/20/24 09:15 Pulse Ox 98 10/20/24 09:15 O2 Del Method Room Air 10/20/24 09:15 BMI result Body Mass Index 31.9 General: AOx3, no acute distress Resp: CTA bilaterally CVS: S1, S2, RRR GI: +BS, NT, no distention Skin: Warm, dry Neuro: Right superior medial quadrantopia. EOM intact. No other focal deficits noted. Motor grossly intact bilaterally. Strength preserved and symmetric of upper and lower extremities bilaterally. No facial droop. No dysarthria or difficulty word finding. Sensation to light touch intact of face, upper and lower extremities bilaterally. Extremities: No edema Psych: Appropriate affect Results Labs 10/20/24 10:07 10/20/24 10:07 Labs: Laboratory Results - last 24 hr 10/20/24 10/20/24 09:59 10:07 MCV 85.4 MCH 29.9 MCHC 35.0 RDW 14.1 Plt Count 193 MPV 8.5 L Immature Gran % (Auto) 0.2 Neut % (Auto) 40.0 L Lymph % (Auto) 40.1 H [place] % (Auto) 16.7 H Eos % (Auto) 1.9 Baso % (Auto) 1.1 Lymph # (Auto) 1.9 [place] # (Auto) 0.8 Eos # (Auto) 0.1 Baso # (Auto) 0.1 Abs Immat Gran (auto) 0.01 Absolute Neuts (auto) 1.9 L Absolute Nucleated RBC 0.000 Nucleated RBC % (auto) 0.0 PT 11.9 Whole Blood PT 11.8 INR 1.0 Whole Blood INR 1.0 APTT 30.8 Anion Gap 13 Estim Creat Clear Calc 110.7 Estimated GFR > 60 POC Glucose 93 Random Glucose 87 Calcium 8.6 Triglycerides 154 H Cholesterol 163 LDL Cholesterol, Calc 89 HDL Cholesterol 44 Imaging Radiologist's Impressions: Impressions Head CT 10/20/24 10:09 IMPRESSION: No acute intracranial hemorrhage or acute brain abnormality by CT. Stable brain. This critical result was discussed with Dr. Tony Syed emergency physician at 10:29 AM hours on October 20, 2024.. It was ascertained that the content and urgency of the report was understood at the time of direct communication. Electronically signed by: Aaron Navarro MD 10/20/2024 10:29 AM EDT RP Head/Neck CTA 10/20/24 10:13 IMPRESSION: No high degree stenosis or dissection. No main cerebral artery occlusion or embolus. 4 mm sialolithiasis, right submandibular gland. This critical test result is communicated to: Dr. Tony Syed, emergency physician at 10:30 AM on October 20, 2024 using [employer] connect. Electronically signed by: Aaron Navarro MD 10/20/2024 10:39 AM EDT RP Assessment and Plan (1) Loss of part of visual field: Status: Acute Plan Pt is a 68-year-old male with a PMH significant for?metastatic melanoma with known mets to brain, currently on chemotherapy follows with Dr. Smalls, hx of prostate cancer s/p radical prostatectomy, nephrolithiasis, hx of aseptic meningitis, osteoarthritis, HLD, HTN, and GERD who presents to the ED with?sudden onset right eye vision loss since last night. Pt is admitted to the hospital for treatment and further evaluation of acute right-sided vision loss concerning for possible acute CVA. Acute right-sided vision loss Pt with sudden onset right superior medial quadrantopia last night around 20:00 5/10 pain with movement, EOM intact Pt without other focal deficits CT of and CTA of head/neck negative for abnormalities Unclear etiology: Concern for acute CVA vs side effects of chemotherapy Pt given aspirin in the ED Will get MRI of head/brain to rule out stroke PT/OT consult Pt has urgent eye appointment with [facility] on Wednesday at 08:10 Monitor on telemetry Metastatic melanoma Hold chemotherapy due to possible side effects affecting vision loss Continue prophylactic Bactrim DS Oncology consult Acute on chronic hyponatremia Patient's sodium 130 at time of presentation Likely secondary to hydrochlorothiazide Pt received IVF in the ED Will hold hydrochlorothiazide Follow sodium HTN Blood pressure has been soft while in the ED Hold enalapril and hydrochlorothiazide Continue metoprolol Likely discontinue hydrochlorothiazide at discharge HLD Continue statin Migraines Fioricet p.r.n. GERD Continue PPI Full Code Attending:?Dr. Hamlin DVT Prophylaxis: Lovenox Pt will require a hospitalization of at least two nights for treatment of?acute right eye vision loss concerning for CVA vs chemotherapy side effect. Pt will need hospital level care for stroke rule out including initially imaging and close monitoring of cardiac function. Quality Stroke Does the patient have a stroke diagnosis?: No VTE Prior VTE?: No VTE Risk Level:: Medical - moderate - high VTE Device Contraindication: Treatment Not Indicated VTE Drug Contraindication: N/A - Med Ordered
--- NOTE | 2024-10-20 13:27 | PHA.MEDREC ---
Addendum entered by Lyndsay Corrigan mandie 10/20/24 14:09: reviewed Original Note: Pharmacy Consult ? Medication Reconciliation Pharmacy has completed the medication reconciliation. Spoke to patient to confirm med list. Patient had a list for medications on his phone. Patient states he takes Prednisone 5 mg daily till Wednesday10/27/24, Bactrim DS he takes QOD, last dose was Wednesday10/18/24, claims has 3XW. Patient states his Dr is okay with him taking QOD.
[2024-10-20 14:24] VITALS: BP 135/49; PULSE 63; O2SAT 98
[2024-10-20 16:01] VITALS: BP 144/87; PULSE 67; RESP 18; TEMP 36.9; O2SAT 99
[2024-10-20] MEDS: Sulfamethox/Trimeth 800/160 TABLET 1 TAB PO (16:15)
--- NOTE | 2024-10-20 16:26 | PM.HEMONCCN ---
Subjective - Subjective Chief complaint: Consult for: 1. Malignant melanoma with brain Mets. 2. Prostate CA. Patient: known to practice within the last 3 years Consult date: 10/20/24 Requesting Physician: Fredo. Primary Care Provider: Raghu Contreras MD Family Provider: Raghu Contreras MD Medical Summary: DIAGNOSIS: 1. METASTATIC MALIGNANT MELANOMA WITH BRAIN METS. 2. METASTATIC PROSTATE CANCER. 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 Narrative: Jesús Vera is a 68 year old gentleman admitted on account of sudden onset right eye vision loss since last night. He says he was sitting in his recliner watching TV when he stood up and noticed that he had ?offset view where view out of right eye was black in top half. Also experienced 5/10 pain with right eye movement. No headache at that time. Did feel off balance and had some gait instability, but no significant hemiparesis. Denies dysarthria or difficulty word above baseline. Chronic lightheadedness with position changes and chronic fatigue around baseline. Pt went to bed and when vision loss persisted this morning, he called us, as vision changes are a known side effect from chemotherapy medication. We asked him to go immediately to the ED for further evaluation. He continues to experience right field vision loss. ED doctor contacted us, we suggested admission to the hospital, stroke workup, and holding his chemotherapy medications. In the ED his BP was soft, as low as 114/59, vitals otherwise stable and WNL. Labs were significant for normocytic anemia of 10.9/31.1 and sodium 130. Renal function WNL. Troponins negative. Lipid profile largely WNL. Tested negative for flu, COVID, RSV. CT?of head negative for acute intracranial hemorrhage or acute brain abnormality. CTA of head/neck without high degree stenosis or dissection and negative for cerebral artery occlusion or embolus. EKG demonstrated normal sinus rhythm nonspecific ST a abnormalities. He was treated in the ED with aspirin. Pt is being admitted to the hospital for treatment and further evaluation of acute right-sided vision loss concerning for possible acute CVA. PAST MEDICAL HISTORY: 1. Prostate cancer, status post radical prostatectomy by Dr. Yeboah. PET scan performed at [facility] on 03/02/2024 revealed metabolically active retroperitoneal lymph nodes along the aorta with SUV 13.2, FDG avid left common iliac nodes SUV max 15.2, FDG active right external iliac and right inguinal lymph nodes SUV max up to 17.9. FDG avid scattered mediastinal lymph nodes with SUV max up to 4.9. CT chest/abdomen and pelvis revealed bulky right inguinal, right external and internal iliac lymphadenopathy, para-aortic retroperitoneal lymphadenopathy consistent with metastatic adelaida disease. Incompletely imaged bulky right inguinal and femoral lymphadenopathy, largest lymph node measuring 5.9 x 4.2 cm. Bony metastasis in L4, L5, S1 and S2. Fatty infiltration of liver. 1 cm enhancing splenic nodules suspicious. In the chest there were suspicious right upper lobe nodule, mediastinal lymphadenopathy measuring up to 1.7 cm. Brain MRI showed no evidence of metastatic disease. 2. Patient was never treated for melanoma. He was seen by surgeon in December with a 2 month history of right groin mass, he had no symptoms of pain, loss of appetite or weight loss. Pelvic MRI with contrast on 01/31/2024 revealed right inguinal lymphadenopathy measuring up to 3.8 x 4.2 cm with surrounding tissue stranding concerning for metastatic disease. On 02/08/2024 he had biopsy of this mass which revealed metastatic melanoma. Immunostains histochemical stains reactive with [place]-1, HMB45, SOX 1, PRAME. He was started on ipilimumab and nivolumab followed by nivolumab maintenance, in March 2024. Stat right lower extremity Doppler was negative for DVT. Enlarged inguinal lymph nodes seen in the groin measuring up to 7.4 x 5.6 cm which is probably the cause of his right leg swelling. He was admitted to [facility] on 05/27/2024 with complaints of headaches associated with nausea. CT head with contrast was negative. He developed a fever spike, lumbar puncture performed revealed clear, colorless fluid with elevated total protein of 54, WBC of 16 and glucose of 45. He tested negative for viral and bacterial meningitis. Cytology was negative for malignancy. Presumed diagnosis is aseptic meningitis which is a rare adverse effect of immunotherapy. He received prednisone 40 mg once daily for 2 weeks followed by a gradual taper over the next 4 weeks. PET scan performed 06/20/2024 showed no abnormal FDG activity in the entire body, small lymph nodes in right groin, not active metabolically. Review of Systems - Constitutional Reports system reviewed and no additional complaints, except as documented, Reports lack of energy, Reports malaise, Reports weight loss - Eyes Reports system reviewed and no additional complaints, except as documented - ENT Reports system reviewed and no additional complaints, except as documented - Cardiovascular Reports system reviewed and no additional complaints, except as documented - Respiratory Reports no additional respiratory complaints - Gastrointestinal Reports system reviewed and no additional complaints, except as documented - Genitourinary Genitourinary: Reports no additional male genitourinary complaints - Musculoskeletal Reports system reviewed and no additional complaints, except as documented - Integumentary/Breasts Skin/Breast: Reports no additional skin complaints - Neurologic Reports system reviewed and no additional complaints, except as documented - Psychiatric Reports system reviewed and no additional complaints, except as documented - Endocrine Reports no additional endocrine complaints - Hematologic/Lymphatic Reports system reviewed and no additional complaints, except as documented - Allergic/Immunologic Reports system reviewed and no additional complaints, except as documented PMFSH Medical History: Medical History (Last Reviewed 10/20/24 @ 15:13 by KAYLAH Beltran) Aseptic meningitis Finger fracture, right Hypercholesterolemia Hypertension Metastasis to brain Nephrolithiasis Obesity (BMI 30.0-34.9) Osteoarthritis Overweight (BMI 25.0-29.9) PSA elevation Functional capacity: uses cane/walker Patient : No Family History: Family History (Last Reviewed 10/20/24 @ 15:13 by KAYLAH Beltran) Mother Bladder cancer Father Prostate cancer Surgical History: Surgical History (Last Reviewed 10/20/24 @ 15:13 by KAYLAH Beltran) History of tonsillectomy Melanoma Social History: Social History (Last Reviewed 10/20/24 @ 15:13 by KAYLAH Beltran) Living Situation History: Household Members: None Housing: House Do you presently have visiting nurse or other home services: No Tobacco History: Patient Tobacco Use Status: Never used Tobacco e-Cigarette/Vaping Use: Never Used Second Hand Smoke Exposure: No Advance Directives: Advance Directives Date on File: 09/22/22 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 Current occupational status: employed Sex/Gender Assessment: Sexual orientation: Straight/Heterosexual Gender identity: Male Home Medications and Allergies Current Medications: Current Medications Acetaminophen (Acetaminophen 325 Mg Tablet) 650 mg PO Q6H PRN PRN Reason: Pain, Mild 1-3,fever,headache Ascorbic Acid (Ascorbic Acid 500 Mg Tablet) 1,000 mg PO DAILY [facility]ACHARY Atorvastatin Calcium (Atorvastatin Calcium 10 Mg Tablet) 10 mg PO BEDTIME ZACHARY Calcium Carbonate (Calcium Carbonate 750 Mg Tab.Chew) 750 mg PO Q4H PRN PRN Reason: Heartburn Diphenhydramine HCl (Diphenhydramine Hcl 25 Mg Capsule) 25 mg PO DAILY PRN PRN Reason: Allergy Symptoms Magnesium Hydroxide (Milk Of Magnesia 30 Ml Oral.Susp) 30 ml PO DAILY PRN PRN Reason: Constipation Melatonin (Melatonin 3 Mg Tablet) 6 mg PO BEDTIME PRN PRN Reason: Insomnia Metoprolol Succinate (Metoprolol Succinate Er 25 Mg Tab.Er.24h) 25 mg PO DAILY ZACHARY; Protocol Multivitamins/Vitamin C (Multivitamin Tablet) 1 tab PO DAILY ZACHARY Omeprazole (Omeprazole 20 Mg Capsule.Dr) 20 mg PO DAILY@0630 ZACHARY Ondansetron HCl (Ondansetron Hcl 4 Mg/2 Ml Vial) 4 mg IVPUSH Q8H PRN PRN Reason: Nausea and Vomiting Prednisone (Prednisone 5 Mg Tablet) 5 mg PO DAILY [facility] Psyllium Hydrophilic Mucilloid (Psyllium Seed 3.7 Gm Packet) 3.7 gm PO BEDTIME ZACHARY Sodium Chloride (0.9 % Sodium Chloride Flush 3 Ml Syringe) 3 ml IVFLUSH QSHIFT ZACHARY Trimethoprim/Sulfamethoxazole (Sulfamethox/Trimeth 800/160 Tablet) 1 tab PO Q48H ZACHARY Last Admin: 10/20/24 16:15 Dose: 1 tab Home Medications ?Medication ?Instructions ?Recorded ?Confirmed ?Type ascorbic acid (vitamin C) 1,000 mg 1 g PO DAILY 05/21/20 10/20/24 History tablet multivitamin-ferrous 1 tab PO DAILY 05/21/20 10/20/24 History fumarate-folic acid 18 mg-400 mcg tablet (Centrum) omega-3 fatty acids 1,000 mg 1,000 mg PO DAILY 05/21/20 10/20/24 History capsule diphenhydramine HCl 25 mg tablet 25 mg PO DAILY PRN Allergy Symptoms 05/27/24 10/20/24 History (Benadryl Allergy) rpgbtjy-zccuufretbqtb-lovebxff 250 1 tab PO Q4-6H PRN Headache 07/31/24 10/20/24 History mg-250 mg-65 mg tablet (Excedrin Migraine) psyllium husk 0.4 gram capsule 0.4 g PO BEDTIME 07/31/24 10/20/24 History (Fiber (psyllium husk)) omeprazole 20 mg capsule,delayed 20 mg PO DAILY@0630 10/20/24 10/20/24 History release sulfamethoxazole 800 1 tab PO Q48H 10/20/24 10/20/24 History mg-trimethoprim 160 mg tablet (Bactrim DS) Allergies Allergy/AdvReac Type Severity Reaction Status Date / Time No Known Allergies Allergy Verified 10/20/24 09:19 Physical Exam Vital signs: Vital Signs Temp 98.5 F 10/20/24 16:01 Pulse 67 10/20/24 16:01 Resp 18 10/20/24 16:01 BP 144/87 H 10/20/24 16:01 Pulse Ox 99 10/20/24 16:01 O2 Del Method Room Air 10/20/24 16:01 Intake & Output 10/19/24 10/20/24 10/20/24 18:59 06:59 18:59 Other: Weight 100.8 kg Weight 100.8 kg - Constitutional Present: moderate distress - Routine HEENT Exam Head: Present: normal inspection, normocephalic Eye: Present: normal appearance ENT: Present: mucous membranes moist - Routine Neck Exam Present: supple - Routine Respiratory Exam Present: CTAB - Routine Cardiovascular Exam Cardiovascular: Present: RRR, S1, S2 - Routine Abdominal Exam Present: soft, nontender - Routine Extremities Exam Present: nontender - Routine Skin Exam Present: intact, normal turgor - Routine Neurological Exam Present: alert, oriented X3 Hem/Onc Consult Result - Labs CBC & Chem 7: 10/20/24 10:07 10/21/24 06:19 Labs: Short CBC 10/20/24 Range/Units 10:07 WBC 4.7 L (4.8-10.8) X10*3/uL Hgb 10.9 L (14.0-18.0) g/dl Hct 31.1 L (42.0-52.0) % Plt Count 193 (160-400) X10*3/uL BMP 10/20/24 10:07 Sodium 130 L Potassium 4.5 Chloride 97 Carbon Dioxide 25 BUN 8 L Creatinine 0.77 Calcium 8.6 Assessment and Plan Patient Active problem list reviewed?: Yes (1) Metastatic melanoma Status: Acute Assessment and plan: This is a 68-year-old male presenting with [place] metastatic melanoma, unknown primary site of disease. He presented with right groin lymphadenopathy measuring up to 3.8 x 4.2 cm. Biopsy of this on 02/08/2024 revealed metastatic melanoma. BRAF V600E positive, missense variant-GOF 40.1% allele fraction. Biologically relevant NBN, CDKN2A and CDKN2B. TMB 3.7m/MB, stable. PDL1 negative, TPS/CPS less than 1% PET scan performed at [facility] on 03/02/2024 revealed metabolically active retroperitoneal lymph nodes along the aorta with SUV 13.2, FDG avid left common iliac nodes SUV max 15.2, FDG active right external iliac and right inguinal lymph nodes SUV max up to 17.9. FDG avid scattered mediastinal lymph nodes with SUV max up to 4.9. He was started on ipilimumab and nivolumab to be followed by nivolumab maintenance, in March 2024. CT abdomen/pelvis with contrast in September 2024 showed no evidence of metastatic disease. EKG was normal. Presumed diagnosis of aseptic meningitis which is a rare adverse effect of immunotherapy after 3 cycles. This therapy was discontinued. He was treated with intermediate dose steroids in May 2024 until July 2024. Clinically he improved but when he was tapered off the medication he developed recurrent symptoms and was readmitted to [facility] in 07/2024. PET scan performed 06/20/2024 showed no abnormal FDG activity in the entire body, small lymph nodes in right groin, not active metabolically. Patient was admitted again to [facility] on 07/28/2024 with similar symptoms of headache, nausea and emesis. He developed recurrent symptoms a week after being tapered off prednisone. Workup with brain MRI with and without contrast revealed numerous small subcentimeter brain metastasis, largest measuring mm in the left superior frontal gyrus. Repeat lumbar puncture performed 08/02/2024 showed CSF WBC of 11 with elevated total protein of 56.7. Negative for bacterial and viral infections. CSF cytology was negative. Patient was initially empirically treated with broad-spectrum antibiotics. He was later switched to high-dose steroids. He was on prednisone 90 mg once a day. Was seen by Vern Ospina at [facility]. At his recommendation, prednisone was being tapered off more quickly until 20 mg after which, it is supposed to be slowly tapered. He has now been tapered down to 5 mg daily. He was supposed to continue that till next Wednesday. If needed IVIG may be used. As he has progressive brain metastasis, he was started on BRAF/MEK with encorafenib 450 mg daily along with binimetinib 45 mg b.i.d. from 09/03/2024. He started on PCP prophylaxis with Bactrim double-strength 1 tablet every other day. He now presents with monocular upper visual field loss. It suggests a lesion anterior to the optic chiasm. DIFFERENTIAL DIAGNOSIS: 1. Retinal detachment, especially inferior retinal detachment. 2. Branch retinal artery or vein occlusion. 3. Anterior ischemic optic neuropathy. 4. Optic neuritis. 5. Ocular toxicity from this regimen can include uveitis iridocyclitis and iritis. MRI of the brain from today: 1. No acute findings. No evidence of ischemia or acute intracranial hemorrhage. 2. Stable small amount of likely hemosiderin deposition within previously seen enhancing nodular lesion in the left frontal lobe. Additional areas of metastatic disease within the right cerebral hemisphere are better visualized on prior contrast exam. PLAN: Would recommend holding the targeted immunotherapy for now. Increase the steroid dose to 20 mg p.o. daily. Use lubricating drops. Ophthalmology consultation. His appointment is on Wednesday 08:20 at [facility]. Echocardiogram to be done in October. Thanks for the consult, I will follow along with you, CC: Dr. Raghu Contreras MD. - Time Spent With Patient Time Spent with Patient (in minutes): 30
[2024-10-20 18:19] VITALS: BP 137/87; PULSE 65; RESP 18; TEMP 36.1; O2SAT 100
[2024-10-20 19:45] VITALS: BP 142/78; PULSE 65; RESP 18; TEMP 36.6; O2SAT 99
[2024-10-20] MEDS: Melatonin 3 MG TABLET 6 MG PO (20:35)
[2024-10-20] MEDS: Psyllium seed 3.7 GM PACKET PO (20:35)
[2024-10-20] MEDS: Atorvastatin Calcium 10 MG TABLET PO (20:35)
[2024-10-20] MEDS: 0.9 % Sodium Chloride Flush 3 ML SYRINGE IVFLUSH ×2 (20:36→21:39)
[2024-10-20 23:13] VITALS: BP 128/73; PULSE 65; RESP 18; TEMP 36.6; O2SAT 98
[2024-10-21 03:08] VITALS: BP 138/71; PULSE 75; RESP 18; TEMP 37.1; O2SAT 96
[2024-10-21] MEDS: Omeprazole 20 MG CAPSULE.DR PO (05:43)
[2024-10-21] MEDS: Acetaminophen 325 MG TABLET 650 MG PO (05:45)
[2024-10-21] MEDS: ondansetron HCL 4 MG/2 ML VIAL IVPUSH (06:27)
[2024-10-21 07:04] VITALS: BP 132/75; PULSE 76; RESP 18; TEMP 36.3; O2SAT 95
[2024-10-21 07:46] LABS: Anion Gap 12 (12-20); Blood Urea Nitrogen 6 mg/dL (9-16); Calcium 8.6 mg/dL (8.4-10.2); Carbon Dioxide 25 mmol/L (22-29); Chloride 96 mmol/L (96-108); Creatinine Clr Calc Pharmacy 123.7; Estimated Glomerular Filt Rate > 60; Glucose Random 82 mg/dL (60-115); Potassium 3.9 mmol/L (3.3-5.1); Sodium 129 mmol/L (135-145)
[2024-10-21] MEDS: Metoprolol Succinate ER 25 MG TAB.ER.24H PO (08:13)
[2024-10-21] MEDS: Ascorbic Acid 500 MG TABLET 1000 MG PO (08:13)
[2024-10-21] MEDS: predniSONE 5 MG TABLET PO (08:13)
[2024-10-21] MEDS: Multivitamin TABLET 1 TAB PO (08:13)
[2024-10-21] MEDS: 0.9 % Sodium Chloride Flush 3 ML SYRINGE IVFLUSH (08:13)
--- NOTE | 2024-10-21 09:55 | MHC.CM.PN ---
IMM 10/21. Pt self-care, lives at home alone. Pt will arrange his own transport home at discharge. HCP on file and verified. PCP: Dr. Krishnamurthy Po
[2024-10-21 12:00] VITALS: BP 138/78; PULSE 77; RESP 18; TEMP 36.4; O2SAT 96
== END 2024-10-21 14:20 | disposition home or self-care (01) | DRG 125 ==
LOC: HO.ED 13:02 → HO.EDOVER 13:02 → HO.IMC 17:17
PROVIDERS: Admitting Provider Student in an Organized Health Care Education/Training Program; Emergency Provider Emergency Medicine; PCP Internal Medicine; Visit Provider Hospitalist
DX: H54.61 Unqualified visual loss, right eye, normal vision left eye (principal); C79.31 Secondary malignant neoplasm of brain; I10 Essential (primary) hypertension; G43.909 Migraine, unspecified, not intractable, without status migrainosus; C43.9 Malignant melanoma of skin, unspecified; K21.9 Gastro-esophageal reflux disease without esophagitis; Z85.46 Personal history of malignant neoplasm of prostate; Z90.79 Acquired absence of other genital organ(s); Z79.899 Other long term (current) drug therapy
CPT/HCPCS: 36415; 70450; 70496; 70498; 70551; 80048; 80061; 82947; 84484; 85025; 85610; 85730; 93005; 97161; 99285; J2405; Q9967

== ENCOUNTER → 2024-10-20 09:54 | Outpatient (BNV) | payer MEDICARE, OTHER, SELFPAY | PROVIDERS: Emergency Provider Emergency Medicine; PCP Internal Medicine; Visit Provider Radiology Diagnostic Radiology | DX: K11.5 Sialolithiasis (principal); C79.31 Secondary malignant neoplasm of brain; I63.9 Cerebral infarction, unspecified | CPT/HCPCS: 70450; 70496; 70498 ==

== ENCOUNTER → 2024-10-20 09:54 | Outpatient (BNV) | payer MEDICARE, OTHER, SELFPAY | PROVIDERS: Admitting Provider Student in an Organized Health Care Education/Training Program; Emergency Provider Emergency Medicine; PCP Internal Medicine; Visit Provider Internal Medicine | DX: R94.31 Abnormal electrocardiogram [ECG] [EKG] (principal); I63.9 Cerebral infarction, unspecified | CPT/HCPCS: 93010 ==

== ENCOUNTER → 2024-10-20 13:02 | Outpatient (BNV) | payer MEDICARE, OTHER, SELFPAY | PROVIDERS: Admitting Provider Student in an Organized Health Care Education/Training Program; Emergency Provider Emergency Medicine; PCP Internal Medicine; Visit Provider Internal Medicine Medical Oncology | DX: H53.40 Unspecified visual field defects (principal) | CPT/HCPCS: 99222 ==

== ENCOUNTER → 2024-10-20 13:02 | Outpatient (BNV) | payer MEDICARE, OTHER, SELFPAY | PROVIDERS: Admitting Provider Student in an Organized Health Care Education/Training Program; Emergency Provider Emergency Medicine; PCP Internal Medicine; Visit Provider Student in an Organized Health Care Education/Training Program | DX: H53.40 Unspecified visual field defects (principal) | CPT/HCPCS: 99223 ==

== ENCOUNTER 2024-11-03 14:51 | Outpatient (AMB) | payer MEDICARE, OTHER, SELFPAY ==
--- OUTSIDE RECORDS SUMMARY | 2024-11-03 14:53 | XMS_ITS ---
Author Organization [facility] Address [address] [place] [address] Care Team Providers Care Regulatory Consultant Name Role Phone Raghu Contreras MD Primary Care Provider Estrella Ewing Unavailable [phone] Allergies No Known Allergies REASON FOR VISIT [...] Problem History of adenomatous polyp of colon (581938665) History of adenomatous polyp of colon (Z86.010) Active confirmed Problem Colon cancer screening (362033165) Colon cancer screening (Z12.11) Active confirmed Problem Pre-procedure evaluation check (813351011) Encounter for other preprocedural examination (Z01.818) Active confirmed Problem Long-term current use of drug therapy (968227997) Encounter for long-term (current) use of high-risk medication (Z79.899) Active confirmed Vital Signs Blood pressure systolic 00 mm Hg 03/02/20 24 Blood pressure diastolic 00 mm Hg 024 Height 69 in 03/02/2024 Weight 206 lbs 03/02/2024 BMI 30.42 kg/m2 03/02/2024 Encounters Encounter Location Date Provider Diagnosis [facility] [address] [place] [address] 03/02/2024 Estrella Mosqueda History of adenomato us [...] * ИВАН SHELBYDOB:1955 ([age] yo M)Acc No.[id number]:03/02/2024 Progress Notes Patient:?ИВАН SHELBY Provider:?Estrella Mosqueda MD :1955???Age:68 Y???Sex:Male Brown e:03/02/2024 Address:[address] [place] [address], [place] [address] Pcp:Raghu Contreras MD Subjective: * Chief Complaints: [...] Interpretation: Negative.?Miscellaneous:?Marital status: single. 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 . ???Nonsmoker; no alcohol. * [...] List reviewed and reconciled with the patientDiscontinued [place] 3 300 mg 1 capsule Orally Once [...] Procedure Codes:?3017F COLOR ECTAL CA SCREEN DOC [id number] TOBACCO [id number] BP SCR NOT PRFRM REC REASON NOS * Preventive Medicine:? ??Counseling:?Care goal follow-up plan:?Above Normal BMI Follow-up?Giving encouragement to exercise,?BMI management provided?Yes.? * Follow Up:?prn * * Sign off status: Completed true * Provider:?Estrella Mosqueda MD Date:? 024 Generated for Harrison zapata/Rick/Ericitting on:?11/03/2024 02:52 PM EDT History and Physical Notes * [...]
--- NOTE | 2024-11-03 15:00 | MHC.PC.OV ---
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: No Accompanied by: Friend Allergies No Known Allergies Allergy (Verified 11/03/24 15:03) Medication List - Last Reconciled 11/03/24 by Raghu Contreras MD ascorbic acid (vitamin C) 1 g PO DAILY wrlromf-robkghyhbvcnd-xpvesdtt 250-250-65 mg (Excedrin Migraine) 1 tab PO Q4-6H PRN atorvastatin 10 mg PO BEDTIME azithromycin (Zithromax) 250 mg PO DAILY diphenhydramine HCl (Benadryl Allergy) 25 mg PO DAILY PRN enalapril maleate 10 mg PO DAILY hydrochlorothiazide 12.5 mg PO DAILY metoprolol succinate ER 25 mg See Protocol PO DAILY stfvtmlzzfqy-yqsk-juvur acid 18-400 mg-mcg (Centrum) 1 tab PO DAILY omega-3 fatty acids 1,000 mg PO DAILY omeprazole 20 mg PO DAILY@0630 ondansetron 8 mg PO Q8H PRN peg [id number]-razfhvosjasz-ofvgqphx 1-0.2-0.2 % (Artificial Tears ([id number])) 2 drps ophthalmic-Right Q4H PRN prednisone 20 mg PO DAILY psyllium husk (Fiber (psyllium husk)) 0.4 grams PO BEDTIME sulfamethoxazole-trimethoprim 800-160 mg (Bactrim DS) 1 tab PO Q48H Tobacco use date assessed: 09/07/24 Fall risk assessment: No Falls in past year Last assessed Fall Risk: 11/03/24 Dental Screening Dental Screen Date: 09/07/24 HPI [facility] 10/21 Acute vision loss right eye HPI Details continue with R eye vision loss= sent to [facility] Patient has a diagnosis of right optic neuritis vs giant cell arteritis PFSH Medical History Metastasis to brain Aseptic meningitis Obesity (BMI 30.0-34.9) PSA elevation Overweight (BMI 25.0-29.9) Finger fracture, right Nephrolithiasis Osteoarthritis Hypercholesterolemia Hypertension Surgical History Melanoma History of tonsillectomy Family History Mother Bladder cancer Father Prostate cancer Social History Household Members: None Housing: House Do you presently have visiting nurse or other home services: No Alcohol intake: former Patient Tobacco Use Status: Never used Tobacco e-Cigarette/Vaping Use: Never Used Second Hand Smoke Exposure: No Advance Directives Date on File: 09/22/22 service: Yes Current occupational status: employed Sexual orientation: Straight/Heterosexual Gender identity: Male Cognitive needs: No Hearing needs: No Vision needs: Yes Questionnaire Thrive Questionnaire Date Thrive assessed: 10/21/24 TIANNA-7 AMB Questionnaire TIANNA-7 Date TIANNA - 7 assessed: 09/07/24 Source: Developed by Drs. Quirino Coats, Radha Reed, Bruno Reeves and colleagues, with an educational marleen from [employer]. Physical exam (Primary Care) Vital Signs: Last Vital Signs Temp 97.3 F 11/03/24 15:03 Pulse 62 11/03/24 15:03 Resp 17 11/03/24 15:03 BP 118/66 11/03/24 15:03 Pulse Ox 97 11/03/24 15:03 Oxygen Delivery Method Room Air 11/03/24 15:03 BMI result Body Mass Index 30.3 Tobacco/Smoking Status: Tobacco use Status Tobacco use date assessed 09/07/24 11/03/24 15:01 Patient Tobacco Use Status Never used Tobacco 11/03/24 15:01 e-Cigarette/Vaping Use Never Used 11/03/24 15:01 Thrive Assessment: Date of Thrive Assessment Date Thrive assessed 10/21/24 11/03/24 15:01 Const General: alert; No acute distress Eyes Conjunctivae: conjunctivae normal Resp Auscultation: clear to auscultation bilaterally Cardio Rate: regular rate Rhythm: regular rhythm GI Inspection: Yes normal to inspection Extrem General: Yes normal to inspection and No edema Coding Level of Care Code Est Pt Level 4 (81572) Complex EM visit Add On G2211 Diagnoses Loss of part of visual field H53.40 Melanoma C43.9 Essential hypertension I10 Hypertension type: essential hypertension Hypercholesterolemia E78.00 Prostate cancer C61 Assessment & Plan Assessment & Plan (1) Loss of part of visual field: Code(s): H53.40 - Unspecified visual field defects Category: Medical Plan: Patient had a whole set of workup which has been negative and thought to be side effects of chemotherapy. Patient was advised to follow-up with Ophthalmology. (2) Melanoma: Comment: Right thigh mass January 2024 biopsy March 2024 Soft tissue, right anterior upper thigh, biopsy: Melanoma, presumed metastatic. Code(s): C43.9 - Malignant melanoma of skin, unspecified Category: Surgical Plan: Patient continues to follow-up with Hematology-Oncology regarding melanoma (3) Hypertension: Code(s): I10 - Essential (primary) hypertension Category: Medical Qualifiers: Hypertension type: essential hypertension Qualified Code(s): I10 - Essential (primary) hypertension Plan: Continue with blood pressure medication. Decrease salt intake and exercise presently on enalapril 10 mg once a day hydrochlorothiazide 12.5 mg once a day metoprolol 25 mg once a day (4) Hypercholesterolemia: Code(s): E78.00 - Pure hypercholesterolemia, unspecified Category: Medical Plan: Avoid fried foods, chicken skin, eggs, butter margarine, pastries and meat. Be it pork or beef they have a lot of cholesterol LDL goal of less than 130 and triglyceride of less than 150 on atorvastatin 10 mg once a day (5) Prostate cancer: Comment: March 2022, RALP 09/2022 Code(s): C61 - Malignant neoplasm of prostate Category: Medical Plan: Continue to follow-up with urology Plan History of Present Illness The patient is a 69-year-old male presenting with sudden onset right eye vision loss. This condition has a multifactorial consideration given his pre-existing metastatic melanoma and recent chemotherapy treatments, which could cause temporary vision changes. Past imaging and treatments included a CT of the head, CTA of head and neck, and multiple MRIs which ruled out major acute intracranial issues, and the possibility of giant cell arteritis was considered, but a temporal artery biopsy was negative. His medical history reveals critical incidents such as metastatic melanoma and prostate cancer, both of which involved aggressive treatments. The patient's ongoing care includes maintaining blood pressure and cholesterol levels within target ranges and managing anemia and leukopenia episodes. Health Maintenance - Monitoring of blood pressure with target management using enalapril, hydrochlorothiazide, and metoprolol. - Management of hypercholesterolemia using atorvastatin with a treatment goal of LDL less than 130 mg/dL and triglycerides less than 150 mg/dL. - Follow-up with hematology-oncology for metastatic melanoma. - Ophthalmology follow-up recommended for ongoing right eye evaluation. 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 - The patient lives with his brother who assists with transportation and daily necessities. - Consumes a diet moderate in proteins (e.g., mike and eggs), dairy, and fruits; reports difficulty with bowel movements and uses stool softeners as necessary. - Exercises caution in driving and prefers local driving only due to recent health events. - Engages only in limited work requiring social interaction. Emphasizes clean dietary habits and lifestyle modifications in light of current illness. Review of Systems - Ocular: Reports sudden onset right eye vision loss, partial recovery of peripheral vision. - Neurological: Denies or not reported issues of headache, weakness, or dizziness at present. - Cardiovascular: Reports stabilized hypertension. - Gastrointestinal: Reports history of hard stools, using stool softeners, denies blood in stools. - General: Reports fatigue but no recent severe weight changes. Physical Exam Results - Labs: Reports mild anemia (10.9 g/dL), mild leukopenia, and hyponatremia. - Tests and Diagnostics: - CT head: Negative for intracranial hemorrhage or acute brain abnormality. - CTA head and neck: No high degree stenosis or dissection; negative for artery occlusion. - MRI: No ischemia or acute intracranial hemorrhage detected; confirmation of stable nodular lesions. Plan In this visit, we discussed the sudden onset of right eye blindness, attributing potential causation to chemotherapy side effects, with detailed review occurring with ophthalmology. Current management includes aspirin and steroid therapy, with tapering protocols set. Options regarding optic neuritis and giant cell arteritis were addressed in light of recent biopsy results. Blood pressure and cholesterol levels remained stable under medication, while auxiliary conditions such as lymphoma and anemia are monitored under oncology's care, particularly given the recent chemotherapy history and impacts. Patient was informed and verbally consented to the use of an ambient scribe for clinic note documentation during this visit. Discussion Notes I discussed with the patient the possible relation of sudden right eye vision loss to chemotherapy, mentioning current negative imaging results that support ruling out acute events. Options for suspected optic neuritis versus connective tissue disorder like giant cell arteritis warranted further exploration, despite negative biopsy. Continued ophthalmology evaluation was advised, ensuring steroid tapering adherence. Management of comorbid conditions through medication strategy was reviewed, warning against unnecessary exposure due to immunosuppression. Follow-ups with hematology-oncology, due consideration for ocular symptoms, ongoing imaging, and hematological surveillance assure comprehensive care across addressed concerns. Patient Instructions - Continue all prescribed medications, including aspirin for cardiovascular health. - Follow the prednisone tapering schedule as discussed. - Adhere to follow-up appointments with ophthalmology and hematology-oncology. - Report any sudden changes in vision or neurological symptoms. - Maintain dietary adjustments and increase vegetables and fluids for digestive health. - Avoid extended exposure to infection risks due to suppressed immunity; consider mask-wearing as needed in crowded areas. - Monitor any arising symptoms and contact healthcare if conditions appear worse or unexpected.
[2024-11-03 15:03] VITALS: BP 118/66; PULSE 62; RESP 17; TEMP 36.3; O2SAT 97; BMI 30.3
== END 2024-11-03 16:10 | disposition home or self-care (01) ==
LOC: HO.HMCH 14:51
PROVIDERS: PCP Internal Medicine; Visit Provider Internal Medicine
DX: I10 Essential (primary) hypertension (principal); H53.40 Unspecified visual field defects; C43.9 Malignant melanoma of skin, unspecified; C61 Malignant neoplasm of prostate; E78.00 Pure hypercholesterolemia, unspecified

== ENCOUNTER → 2024-11-03 14:51 | Outpatient (BNVA) | payer MEDICARE, OTHER, SELFPAY | PROVIDERS: PCP Internal Medicine; Visit Provider Internal Medicine | DX: H53.40 Unspecified visual field defects (principal); C43.9 Malignant melanoma of skin, unspecified; I10 Essential (primary) hypertension; E78.00 Pure hypercholesterolemia, unspecified; C61 Malignant neoplasm of prostate | CPT/HCPCS: 99212 ==

== ENCOUNTER 2024-11-20 16:04 | Outpatient (AMB) | payer MEDICARE, OTHER, SELFPAY ==
[2024-11-20 16:10] VITALS: BP 116/70; PULSE 74; O2SAT 97; BMI 30.9
--- NOTE | 2024-11-20 16:10 | MHC.PC.OV ---
Vital Signs 11/20/24 16:10 Height 5 ft 10 in Weight 215 lb 8 oz BMI 30.9 BP 116/70 Blood Pressure Location Lt brachial Position Sitting Pulse 74 Pulse Source Pulse Oximeter Pulse Oximetry (%) 97 Oxygen Delivery Method Room Air Intake Visit Reasons: annual exam Credit Controller Required: No Accompanied by: Self / Same As Patient Allergies No Known Allergies Allergy (Verified 11/20/24 16:11) Medication List - Last Reconciled 11/20/24 by Raghu Contreras MD ascorbic acid (vitamin C) 1 g PO DAILY tzcxlnx-pdjcilimkomul-ujsgewnx 250-250-65 mg (Excedrin Migraine) 1 tab PO Q4-6H PRN atorvastatin 10 mg PO BEDTIME diphenhydramine HCl (Benadryl Allergy) 25 mg PO DAILY PRN enalapril maleate 10 mg PO DAILY hydrochlorothiazide 12.5 mg PO DAILY metoprolol succinate ER 25 mg See Protocol PO DAILY gesyruqnmmjb-otmp-fjfqw acid 18-400 mg-mcg (Centrum) 1 tab PO DAILY omega-3 fatty acids 1,000 mg PO DAILY omeprazole 20 mg PO DAILY@0630 peg 315-yrpygdyryboo-ueuvixvd 1-0.2-0.2 % (Artificial Tears ([id number])) 2 drps ophthalmic-Right Q4H PRN prednisone 30 mg PO DAILY psyllium husk (Fiber (psyllium husk)) 0.4 grams PO BEDTIME sulfamethoxazole-trimethoprim 800-160 mg (Bactrim DS) 1 tab PO Q48H Tobacco use date assessed: 11/20/24 Fall risk assessment: No Falls in past year Last assessed Fall Risk: 11/20/24 Dental Screening Dental Screen Date: 11/20/24 Did you have a dental visit in the last 12 months?: Yes Did you have a dental problem in the last 6 months where you did not have access to dental care?: No Was dental information given to patient?: Patient has dentist REPLACED BY [facility] Medical History Metastasis to brain Aseptic meningitis Obesity (BMI 30.0-34.9) PSA elevation Overweight (BMI 25.0-29.9) Finger fracture, right Nephrolithiasis Osteoarthritis Hypercholesterolemia Hypertension Surgical History Melanoma History of tonsillectomy Family History Mother Bladder cancer Father Prostate cancer Social History Household Members: None Housing: House Do you presently have visiting nurse or other home services: No Alcohol intake: former Patient Tobacco Use Status: Never used Tobacco e-Cigarette/Vaping Use: Never Used Second Hand Smoke Exposure: No Advance Directives Date on File: 09/22/22 service: Yes Current occupational status: employed Sexual orientation: Straight/Heterosexual Gender identity: Male Cognitive needs: No Hearing needs: No Vision needs: Yes Questionnaire PHQ-9 Over the last 2 weeks, how often have you been bothered by any of the following problems? 1. Little interest or pleasure in doing things: not at all 2. Feeling down, depressed, or hopeless: not at all 3. Trouble falling or staying asleep, or sleeping too much: not at all 4. Feeling tired or having little energy: not at all 5. Poor appetite or overeating: not at all 6. Feeling bad about yourself - or that you are a failure or have let yourself or your family down: not at all 7. Trouble concentrating on things, such as reading the newspaper or watching television: not at all 8. Moving or speaking so slowly that other people could have noticed. Or the opposite - being so fidgety or restless that you have been moving around a lot more than usual: not at all 9. Thoughts that you would be better off or of hurting yourself in some way: not at all Total score: 0 Source: Developed by Drs. Quirino Coats, Radha Reed, Bruno Reeves and colleagues, with an educational marleen from [email or web address]. Thrive Questionnaire Date Thrive assessed: 11/20/24 I am a: Patient What is your living situation today?: I have a steady place to live Within the past 12 months, did the food you bought not last and you didn't have the money to get more?: Never true Within the past 12 months, did you worry whether your food would run out before you got money to buy more?: Never true Do you have trouble paying for medicines?: No Do you have trouble getting transportation to medical appointments?: No Do you have trouble paying your heating and electricity bill?: No Do you have trouble taking care of your child, family member or friend?: No Do you have trouble with day-to-day activities such as bathing, preparing meals, shopping, managing finances, etc.?: No Are you currently unemployed and looking for a job?: No Are you interested in more education?: No Please select the resources that you would like help with: None Currently or been in a relationship where the following occur: No concerns reported THRIVE Score: 0 AUDIT C Alcohol Use Questionnaire (AUDIT-C) 1. How often do you have a drink containing alcohol?: Never 3. How often do you have six or more drinks on one occasion?: Never Total Score: 0 TIANNA-7 AMB Questionnaire TIANNA-7 Date TIANNA - 7 assessed: 11/20/24 Feeling nervous, anxious, or on edge: 0 = Not at all Not being able to stop or control worryin = Not at all Worrying too much about different things: 0 = Not at all Trouble relaxin = Not at all Being so restless that it is hard to sit still: 0 = Not at all Becoming easily annoyed or irritable: 0 = Not at all Feeling afraid as if something awful might happen: 0 = Not at all Total TIANNA-7 score (0-4 normal; 5-9 mild; 10-14 moderate; 15-21 severe): 0 Source: Developed by Drs. Quirino Coats, Radha Reed, Bruno Reeves and colleagues, with an educational marleen from [email or web address]. Review of Systems Const Denies poor appetite and Denies weakness Eyes Denies no additional complaints ENT Reports Normal hearing present, Denies dizziness, Denies nasal congestion, Denies tinnitus and Denies sore throat Card Denies chest pain, Denies syncope, Denies rapid heart rate and Denies dyspnea Resp Denies cough and Denies dyspnea GI Denies change in stool character, Reports constipation, Denies diarrhea, Denies nausea and Denies vomiting Denies dysuria and Denies urinary frequency Neuro Reports Normal hearing present, Denies confusion, Denies dizziness, Denies syncope and Denies weakness Psych Denies confusion Physical exam (Primary Care) Vital Signs: Last Vital Signs Pulse 74 11/20/24 16:10 BP 116/70 11/20/24 16:10 Pulse Ox 97 11/20/24 16:10 Oxygen Delivery Method Room Air 11/20/24 16:10 BMI result Body Mass Index 30.9 Tobacco/Smoking Status: Tobacco use Status Tobacco use date assessed 11/20/24 11/20/24 16:18 Patient Tobacco Use Status Never used Tobacco 11/20/24 16:18 e-Cigarette/Vaping Use Never Used 11/20/24 16:18 PHQ-9: PHQ-9 Score PHQ-9: Total score 0 11/20/24 16:32 Thrive Assessment: Date of Thrive Assessment Date Thrive assessed 11/20/24 11/20/24 16:18 Currently or been in a relationship where the following occur: No concerns reported Const General: No confusion Orientation/consciousness: No confusion HENMT Head: Yes normocephalic Ears: external ears normal and TM's normal bilaterally Face and sinus: Yes normal facial exam Mouth: moist mucous membranes Throat: Yes tonsils normal Eyes Conjunctivae: conjunctivae normal Pupils: Equal, round and reactive pupils present and Pupil accommodation reflex normal Direct Ophthalmoscopy: normal light reflex Neck Neck: No lymphadenopathy Thyroid: Thyroid normal Chest Chest palpation & inspection: normal inspection of the chest Resp Effort & Inspection: normal respiratory effort and no audible wheezes Auscultation: clear to auscultation bilaterally, no crackles, no wheezes and lung sounds not diminished Cardio Rate: regular rate Rhythm: regular rhythm Peripheral pulses: radial pulses present and dorsalis pedis present GI Other: guaiac neg no prostate Palpation (GI): no masses Auscultation: normal bowel sounds and normoactive bowel sounds Male General Exam: Yes normal external exam Skin General skin exam: no rashes or lesions noted Rashes: no rashes Neuro General: No confusion Cranial nerves: Yes Equal, round and reactive pupils present and Yes Normal hearing present Cognition (Neuro): normal cognition Gait exam (Neuro): Normal gait present Motor exam (neuro): 5/5 motor strength present throughout Deep tendon reflexes (DTR's): Right brachioradialis reflex intensity grade: 2+, Left brachioradialis reflex intensity grade: 2+, Right patellar reflex intensity grade: 2+ and Left patellar reflex intensity grade: 2+ Extrem General: No edema Coding Level of Care Code Est Pt Prev Care >65y(15641) Diagnoses Annual physical exam Z00.00 Essential hypertension I10 Hypertension type: essential hypertension Hypercholesterolemia E78.00 Prostate cancer C61 Tubular adenoma of colon D12.6 Melanoma C43.9 Hyponatremia E87.1 Assessment & Plan Assessment & Plan (1) Annual physical exam: Code(s): Z00.00 - Encounter for general adult medical examination without abnormal findings Category: Medical Plan: Patient is advised to eat healthy, keep well hydrated, keep active and have adequate sleep. (2) Hypertension: Code(s): I10 - Essential (primary) hypertension Category: Medical Qualifiers: Hypertension type: essential hypertension Qualified Code(s): I10 - Essential (primary) hypertension Plan: Continue with blood pressure medication. Decrease salt intake and exercise on enalapril 10 mg once a day hydrochlorothiazide 12.5 mg once a day metoprolol 25 mg once a day (3) Hypercholesterolemia: Code(s): E78.00 - Pure hypercholesterolemia, unspecified Category: Medical Plan: Avoid fried foods, chicken skin, eggs, butter margarine, pastries and meat. Be it pork or beef they have a lot of cholesterol LDL goal of less than 130 and triglyceride of less than 150 (4) Prostate cancer: Comment: March 2022, [facility] 09/2022 Code(s): C61 - Malignant neoplasm of prostate Category: Medical Plan: Continue follow-up surveillance with Urology (5) Tubular adenoma of colon: Code(s): D12.6 - Benign neoplasm of colon, unspecified Category: Medical Plan: Patient is reminded about colonoscopy (6) Melanoma: Comment: Right thigh mass January 2024 biopsy March 2024 Soft tissue, right anterior upper thigh, biopsy: Melanoma, presumed metastatic. Code(s): C43.9 - Malignant melanoma of skin, unspecified Category: Surgical Plan: Continue with Hematology-Oncology (7) Hyponatremia: Code(s): E87.1 - Hypo-osmolality and hyponatremia Category: Medical Plan History of Present Illness The patient is a 69-year-old male presenting for a physical examination and management review of chronic health conditions. He was previously treated for prostate cancer in March 2022 and has a history of a tubular adenoma of the colon from 2019. 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 Anemia and sodium imbalance are noted management concerns, linked partly to medication effects. Recent laboratory evaluations showed improved control of hypercholesterolemia, with an LDL of 89 mg/dL and triglycerides at 154 mg/dL. There are no reports of nausea, vomiting, or syncope. The patient follows a medication plan that he manages according to blood pressure control and electrolyte balance, avoiding hydrochlorothiazide due to its potential impact on sodium levels. His social history includes abstinence from alcohol and tobacco. Health Maintenance - Cholesterol management: LDL level <130 mg/dL, last recorded LDL is 89 mg/dL with improved triglyceride levels, currently 154 mg/dL (previously 214 mg/dL). - Pneumococcal vaccination received in 2021. - Up-to-date with tetanus, shingles, and RSV vaccinations. - Consideration of COVID-19 booster due to cancer history. - Last colonoscopy cancelled in 2019; follow-up needed once oncology clearance is obtained. - Regular monitoring for anemia and sodium imbalance. - Blood pressure management with recent adjustments made to medication regimen. Social History - Retired from service in 2002. - Does not consume any alcohol since retiring from service; last consumed Odools (low-alcohol beer). - Abstains from tobacco and any tobacco products. - Engages in light physical activity and monitors nutritional intake. - Consumes approximately 64 ounces of water daily. - Manages weight actively; recent weight of 212 pounds without shoes. Review of Systems - Eyes: Reports episodic right eye vision loss; diagnosis of optic nerve edema. - Cardiovascular: Denies shortness of breath, chest pain, or palpitations. - Gastrointestinal: Reports daily non-watery bowel movements, controlled with occasional Colace usage. - Neurological: Reports no new-onset headaches, dizziness, or syncope. - Respiratory: Denies coughing or any respiratory changes. - Musculoskeletal: Reports right leg swelling that fluctuates. - Skin: Reports pruritic cyst-like lesion on the abdomen currently unchanging. Physical Exam General: Cooperative, healthy appearing, comfortable, no acute distress and well developed Orientation: Patient oriented x3 Limitations: No limitations Head: Normal to inspection Ears: Hearing fairly good bilaterally Nose: Normal external nose present Face and sinus: Normal facial exam Eyes: Loss of vision in the right eye, following up with ophthalmology for optic nerve edema Neck: Normal visual inspection and Yes full ROM Respiratory: Normal respiratory effort and able to speak in complete sentences. Clear to auscultation bilaterally Cardiovascular: Regular rate and rhythm. Normal S1 and S2 GI: Normal to inspection. Soft to palpation and nontender Skin: No rashes or lesions noted, except for a cyst on the body Neuro: Patient oriented x3 Extremities: Normal to inspection, some swelling noted in the right leg Results - Labs: Hemoglobin level 10.9 g/dL, hematocrit 31.1%, WBC 4.7 x10^9/L, sodium 129 mmol/L. - Cholesterol: LDL 89 mg/dL, triglycerides 154 mg/dL. - Imaging: MRI indicating brain and optic nerve findings; presumed metastatic process. Plan Management will focus on the patient's ongoing cancer surveillance and treatment, including considerations for potential brain metastasis. Optic nerve changes linked to metastasis necessitate ongoing dialogue with ophthalmology. Adjustments in hypertension medications, specifically withdrawal of hydrochlorothiazide, aim to improve sodium balance negatively affected by recent blood pressure therapy. Enalapril and metoprolol continuation without a diuretic is currently indicated, with close monitoring of blood pressure and serum sodium. Symptomatic revisions for anemia require continued evaluation and possible adjustments in care strategies determined by forthcoming laboratory data. Regular oncology follow-up is pivotal in managing metastatic progression and optimizing cancer therapy, particularly with regards to the adjustment of oral chemotherapeutics. Patient was informed and verbally consented to the use of an ambient scribe for clinic note documentation during this visit. Discussion Notes We discussed the need for focused care around potential brain metastasis and the visual implications relating to optic nerve edema. The patient acknowledges the importance of regular ophthalmologic and radiographic evaluations to assess these concerns. The merits of stopping hydrochlothiazide were reviewed, justifying its cessation due to hyponatremia risk. I highlighted blood pressure targets and the need for monitoring post-adjustment. I addressed options for potential cancer treatment resumption post-evaluation. Vaccination against the influenza virus remains critical. Planning included discussion of return visits to ensure continued monitoring of lab and imaging results. The patient agreed to consult regarding additional vaccinations, including COVID-19. Patient Instructions - Continue taking enalapril and metoprolol as prescribed. - Discontinue hydrochlorothiazide to improve sodium levels. - Follow up with oncology as planned. - Attend ophthalmology appointments for vision monitoring. - Maintain an adequate water intake but avoid excessive hydration. - Receive the COVID-19 booster if advised by the healthcare team. - Keep blood pressure and lab appointments as scheduled. - Contact the clinic for any new symptoms or immediate concerns. - Plan your next wellness check-in in three months and review blood work plans. Medications: Discontinued hydrochlorothiazide Discontinued Reason: Doctor's Order 12.5 mg PO DAILY 90 caps 3RF I10 - Essential (primary) hypertension
--- OUTSIDE RECORDS SUMMARY | 2024-11-20 17:36 | XMS_ITS | Continuity of Care Document ---
Author Name [facility] Organization [facility] Care Team Providers Care Senior Cisco Network Engineer Name Role Phone [facility] Unavailable Unavailable Medications Combined list of outpatient [...] TABLET, ORAL, MYLAN, 500 ea. BOTTLE Active [id number] 4 2023 90 Pharmac y Data Transac tion Service Facilit y ENALAPRIL MALEATE (enalapril maleate), 10 MG, TABLET, ORAL, [facility] [facility], 1000 ea. BOTTLE Cancele d [id number] : 2023 0 Pharmac y Data Transac tion Service Facilit y ENALAPRIL MALEATE (ENALAPRIL MALEATE), 10MG, TABLET, ORAL, [employer] [employer], 1000 ea. BOTTLE Cancele d [id number] : 2023 0 Pharmac y Data Transac tion Service Facilit y HYDROCHLORO THIAZIDE (HYDROCHLOR OTHIAZIDE), 12.5 MG, CAPSULE, ORAL, [employer] [facility], 1000 ea. BOTTLE Active [id number] 4 2023 90 Pharmac y Data Transac tion Service Facilit y SILDENAFIL CITRATE (sildenafil citrate), 100 MG, TABLET, ORAL, AMNEAL PHARMACE, 30 ea. BOTTLE Cancele d [id number] : 2023 0 Pharmac y Data Transac tion Service Facilit y Immunizations Combined list of available immunizations from the Department of Defense and Veterans Affairs facilities. Immunization Series Date Given Administered By Site Reaction Lot Number CVX Code Drug Mail Sorter Status Comments Source COVID-19, mRNA, LNP-S, PF, [...] , seasonal, injectabl e, preservat jo-ann free [facility] tetanus and diphtheria toxoids, adsorbed, preservative free, for adult use (2 Lf of tetanus toxoid and 2 Lf of diphtheria toxoid) 1 2001 Unknown, Provider [id number] Sanofi Pasteur ([facility]) complet ed tetanus and diphtheri a toxoids, adsorbed, preservat jo-ann free, for adult use (2 Lf of tetanus toxoid and 2 Lf of diphtheri a toxoid) [facility] typhoid vaccine, parenteral, other than acetone-kille d, dried 1 2001 Unknown, Provider [id number] Sanofi Pasteur ([facility]) complet ed typhoid vaccine, parentera l, other than acetone-k illed, dried [facility] influenza virus vaccine, whole virus 1 2001 Unknown, Provider [id number] Sanofi Pasteur ([facility]) complet ed influenza virus vaccine, whole virus [facility] yellow fever vaccine 1 2001 Unknown, Provider [id number] Sanofi Pasteur ([facility]) complet ed yellow fever vaccine DoD meningococcal polysaccharid e vaccine (MPSV4) 1 2001 Unknown, Provider [id number] Sanofi Pasteur ([facility]) complet ed meningoco ccal polysacch aride vaccine (MPSV4) DoD influenza virus vaccine, whole virus 1 2000 Unknown, Provider [id number] Leah ([facility]) complet ed influenza virus vaccine, whole virus [facility] tuberculin skin test; purified protein derivative solution, intradermal 1 2000 Unknown, Provider [id number] Rhonda ([facility]) complet ed tuberculi n skin test; purified protein derivativ e solution, intraderm al DoD influenza virus vaccine, whole virus 1 1999 Unknown, Provider [id number] Leah ([facility]) complet ed influenza virus vaccine, whole virus [facility] typhoid vaccine, parenteral, other than acetone-kille d, dried 1 1999 Unknown, Provider [id number] Merieux ([facility]) complet ed typhoid vaccine, parentera l, other than acetone-k illed, dried DoD tuberculin skin test; purified protein derivative solution, intradermal 1 1998 Unknown, Provider [id number] Rhonda ([facility]) complet ed tuberculi n skin test; purified protein derivativ e solution, intraderm al DoD influenza virus vaccine, whole virus 1 1998 Unknown, Provider [id number] Leah (Inactive) ([place]) complet ed influenza virus vaccine, whole virus DoD influenza virus vaccine, whole virus 2 1997 Unknown, Provider [id number] Rhonda ([facility]) complet ed influenza virus [...] ed measles, mumps and rubella virus vaccine [facility] typhoid vaccine, parenteral, acetone-kille d, dried ([place] ) 2 1995 Unknown, Provider [id number] Merck ([facility]) complet ed typhoid vaccine, parentera l, acetone-k illed, dried ([place] ) [facility] French Encephalitis Vaccine SC 3 1994 Unknown, Provider 39 () complet ed French Encephali tis Vaccine [facility] tetanus and diphtheria toxoids, adsorbed, preservative free, for adult use (2 Lf of tetanus toxoid and 2 Lf of diphtheria toxoid) 1 1992 Unknown, Provider 09 () complet ed tetanus and diphtheri a toxoids, adsorbed, preservat jo-ann free, for adult use (2 Lf of tetanus toxoid and 2 Lf of diphtheri a toxoid) [facility] trivalent poliovirus vaccine, live, oral 1 1983 Unknown, Provider 02 () complet ed trivalent polioviru s vaccine, live, oral [facility] Procedures Combined list of: 1) Procedures from Department of Veterans Affairs facilities going back up to thelast 18 months, not all [place] non-surgical procedures are included; 2) All procedures from the Department of Defense facilities. Procedure Procedure Type Code Date Perfomer Comments Franklin jordan ELECTROCARDIOGRAM, ROUTINE ECG WITH AT LEAST 12 LEADS; INTERPRETATION AND REPORT ONLY 07/13/2002 [facility] SPECIAL REPORTS SUCH INSURANCE FORMS, MORE THAN THE INFORMATION CONVEYED IN THE USUAL MEDICAL COMMUNICATIONS OR STANDARD REPORTING FORM 06/05/2002 [facility] UNLISTED OPHTHALMOLOGICAL SERVICE OR PROCEDURE 03/07/2001 [facility] TYPHOID VACCINE, CAPSULAR POLYSACCHARIDE (VICPS), FOR INTRAMUSCULAR USE 03/31/2000 [facility] Social History Combined list of available smoking, tobacco, and other social history from Department of Defense and Veterans Affairs facilities. Social History Type Response Date Comment Sourabundio e This section is an empty social history section. [facility]
== END 2024-11-20 16:56 | disposition home or self-care (01) ==
LOC: HO.HMCH 16:05
PROVIDERS: PCP Internal Medicine; Visit Provider Internal Medicine
DX: Z00.00 Encounter for general adult medical examination without abnormal findings (principal); C61 Malignant neoplasm of prostate; C43.9 Malignant melanoma of skin, unspecified; I10 Essential (primary) hypertension; E78.00 Pure hypercholesterolemia, unspecified; D12.6 Benign neoplasm of colon, unspecified; E87.1 Hypo-osmolality and hyponatremia

== ENCOUNTER → 2024-11-20 16:04 | Outpatient (BNVA) | payer MEDICARE, OTHER, SELFPAY | PROVIDERS: PCP Internal Medicine; Visit Provider Internal Medicine | DX: Z00.00 Encounter for general adult medical examination without abnormal findings (principal); I10 Essential (primary) hypertension; E78.00 Pure hypercholesterolemia, unspecified; C61 Malignant neoplasm of prostate; D12.6 Benign neoplasm of colon, unspecified; C43.9 Malignant melanoma of skin, unspecified; E87.1 Hypo-osmolality and hyponatremia | CPT/HCPCS: 99397 ==

== ENCOUNTER 2024-12-13 11:07 | Emergency (ER) | payer MEDICARE, OTHER, SELFPAY ==
--- OUTSIDE RECORDS SUMMARY | 2024-06-26 08:10 | XMS_ITS ---
Author Organization [facility] Address [address] [place] [address] Care Team Providers Care Printed Circuit Board Assembly Repairer Name Role Phone Raghu Contreras MD Primary Care Provider Estrella Ewing [facility] [phone] REASON FOR VISIT screening,hx polyps Encounters Encounter Location Date Provider Diagnosis [facility] [place] Out[place] [address] [place], [place] [id number] 06/26/2024 Estrella Mosqueda Plan Of Treatment No Information Progress Notes * ИВАН SHELBYDOB:1955 ([age] yo M)Acc No.[id number]:06/26/2024 COLON WITH MAC Patient: ИВАН PINTO Provider: Danial Mosqueda MD :1955 A ge:68 Y S ex:Male Date:06/26/2024 Address:[address] [place], [place] [id number] Pcp:Raghu Contreras MD Subjective: * Chief Complaints: [...] 06/26/2024 Generated for Harrison ng/Fajusticeg/eTransmitting on: 0 12/13/2024 12:51 PM EDT
[2024-12-13 11:12] VITALS: BP 122/64; PULSE 93; RESP 18; TEMP 36.5; O2SAT 99; BMI 31.8
--- NOTE | 2024-12-13 11:15 | ECG_ITS ---
Test Reason : PALPITATIONS Blood Pressure : */* mmHG Vent. Rate : 88 BPM Atrial Rate : 88 BPM P-R Int : 144 ms QRS Dur : 72 ms QT Int : 356 ms P-R-T Axes : 20 -4 3 degrees QTcB Int : 430 ms Normal sinus rhythm Normal ECG When compared with ECG of 20-Oct-2024 10:04, Nonspecific T wave abnormality no longer evident in Lateral leads Referred By: Casey Galeas Electronically Signed By: MAGGIE MONK MD
--- NOTE | 2024-12-13 11:15 | ED.GENADULT ---
HPI - General Adult General Chief complaint: Arrhythmia/Palpitations Stated complaint: wants to check pulse Time Seen by Provider: 12/13/24 11:52 Related Data Home Medications ?Medication ?Instructions ?Recorded ?Confirmed ascorbic acid (vitamin C) 1,000 mg 1 g PO DAILY 05/21/20 11/23/24 tablet multivitamin-ferrous 1 tab PO DAILY 05/21/20 11/23/24 fumarate-folic acid 18 mg-400 mcg tablet (Centrum) omega-3 fatty acids 1,000 mg 1,000 mg PO DAILY 05/21/20 11/23/24 capsule diphenhydramine HCl 25 mg tablet 25 mg PO DAILY PRN Allergy Symptoms 05/27/24 11/23/24 (Benadryl Allergy) [id number]-vcuhktgjmttas-[id number] 250 1 tab PO Q4-6H PRN Headache 07/31/24 11/23/24 mg-250 mg-65 mg tablet (Excedrin Migraine) psyllium husk 0.4 gram capsule 0.4 g PO BEDTIME 07/31/24 11/23/24 (Fiber (psyllium husk)) sulfamethoxazole 800 1 tab PO Q48H 10/20/24 11/23/24 mg-trimethoprim 160 mg tablet (Bactrim DS) prednisone 20 mg tablet 30 mg PO DAILY 11/20/24 11/23/24 Previous Rx's ?Medication ?Instructions ?Recorded enalapril maleate 10 mg tablet 10 mg PO DAILY #90 tabs 03/08/24 atorvastatin 10 mg tablet 10 mg PO BEDTIME #90 tabs 06/02/24 peg [id number]-xgoxsvys 1 2 drp ophthalmic-Right Q4H PRN Eye 10/21/24 %-0.2 %-0.2 % eye drops pain/irritation #30 mL (Artificial Tears ([id number])) metoprolol succinate 25 mg 25 mg PO DAILY #90 tabs 12/07/24 tablet,extended release 24 hr omeprazole 20 mg capsule,delayed 20 mg PO DAILY@0630 #90 caps 12/07/24 release encorafenib 75 mg capsule 300 mg (4 x 75 mg) PO DAILY #120 12/11/24 caps Allergies Allergy/AdvReac Type Severity Reaction Status Date / Time No Known Allergies Allergy Verified 12/13/24 11:16 [facility] Past Medical History Medical History Metastatic melanoma Metastasis to brain Aseptic meningitis Obesity (BMI 30.0-34.9) PSA elevation Overweight (BMI 25.0-29.9) Finger fracture, right Nephrolithiasis Osteoarthritis Hypercholesterolemia Hypertension Surgical History Melanoma History of tonsillectomy Family History Family History Mother Bladder cancer Father Prostate cancer Social History Social History Household Members: None Housing: House Do you presently have visiting nurse or other home services: No Alcohol intake: former Patient Tobacco Use Status: Never used Tobacco e-Cigarette/Vaping Use: Never Used Second Hand Smoke Exposure: No Advance Directives: Yes Advance Directives on File: Yes Advance Directives Date on File: 09/22/22 Do you have a plan to hurt others: No Plan service: Yes Current occupational status: employed Sexual orientation: Straight/Heterosexual Gender identity: Male Cognitive needs: No Hearing needs: No Vision needs: Yes Physical Exam ED Vital Signs: Vital Signs - 24 hr 12/13/24 11:12 12/13/24 12:14 Temperature 97.7 F 98.2 F Pulse Rate 93 85 Respiratory Rate 18 20 Blood Pressure 122/64 97/51 L Pulse Oximetry 99 99 Oxygen Delivery Method Room Air Room Air BMI result Body Mass Index 31.8 Course Course Course Narrative: 61-year-old male past medical history significant for paroxysmal AFib, history of melanoma, hypertension, hyperlipidemia presents for evaluation of palpitations. Patient reports when he woke up this morning he felt as if his heart was racing and was going 115-125 beats minute. He did not have any chest pain. These symptoms have resolved after about 30 minutes. Plan for EKG and basic labs. Medical Decision Making Lab Data 12/13/24 11:41 12/13/24 11:41 Labs: Lab Results 12/13/24 Range/Units 11:41 WBC 12.8 H (4.8-10.8) X10*3/uL RBC 4.16 L (4.60-5.80) X10*6/uL Hgb 12.4 L (14.0-18.0) g/dl Hct 37.7 L (42.0-52.0) % MCV 90.6 (80.0-98.0) fL MCH 29.8 (27.0-33.0) pg MCHC 32.9 (31.0-36.0) g/dl RDW 15.0 (11.0-16.0) % Plt Count 217 (160-400) X10*3/uL MPV 8.5 L (9.4-12.4) fL Immature Gran % (Auto) 1.2 H (0.0-0.4) % Neut % (Auto) 79.6 H (45-73) % Lymph % (Auto) 7.0 L (20-40) % [place] % (Auto) 11.6 H (2-11) % Eos % (Auto) 0.3 (0-4) % Baso % (Auto) 0.3 (0-2) % Lymph # (Auto) 0.9 L (1.2-4.9) X10*3/uL [place] # (Auto) 1.5 H (0.1-1.2) X10*3/uL Eos # (Auto) 0.0 (0.0-0.4) X10*3/uL Baso # (Auto) 0.0 (0.0-0.2) X10*3/uL Abs Immat Gran (auto) 0.15 H (0.00-0.03) X10*3/uL Absolute Neuts (auto) 10.2 H (2.0-8.3) x10*3/uL Absolute Nucleated RBC 0.000 (0.0-0.012) X10*3/uL Nucleated RBC % (auto) 0.0 (0.0-0.2) /100WBC Sodium 139 (135-145) mmol/L Potassium 3.7 (3.3-5.1) mmol/L Chloride 102 (96-108) mmol/L Carbon Dioxide 27 (22-29) mmol/L Anion Gap 14 (12-20) BUN 15 (9-16) mg/dL Creatinine 0.97 (0.5-1.4) mg/dL Estim Creat Clear Calc 86.5 Estimated GFR > 60 Random Glucose 84 (60-115) mg/dL Calcium 9.3 (8.4-10.2) mg/dL Magnesium 1.9 (1.6-2.6) mg/dL Total Bilirubin 0.9 (0.0-1.0) mg/dL AST 20 (5-37) U/L ALT 28 (0-40) U/L Alkaline Phosphatase 57 (39-117) U/L Total Protein 6.6 (6.5-8.0) g/dL Albumin 4.4 (3.5-5.0) g/dL TSH 2.93 (0.32-4.0) uIU/mL Discharge Plan Discharge Clinical Impression: Palpitations Patient Disposition: Home, Self-Care Instructions: Heart Palpitations (DC) Prescriptions: No Action enalapril maleate 10 mg tablet 10 mg PO DAILY Qty: 90 2RF metoprolol succinate 25 mg Tablet Extended Release 24 Hr 25 mg PO DAILY Qty: 90 0RF Protocol: Hold for SBP/HR < HOLD for SBP < : 90 HOLD for HR < : 60 omeprazole 20 mg capsule,delayed release(DR/EC) 20 mg PO DAILY@0630 Qty: 90 1RF encorafenib 75 mg Capsule 300 mg PO DAILY Qty: 120 3RF diphenhydramine HCl [Benadryl Allergy] 25 mg Tablet 25 mg PO DAILY PRN (Reason: Allergy Symptoms) Excedrin Migraine 250-250-65 mg Tablet 1 tab PO Q4-6H PRN (Reason: Headache) psyllium husk [Fiber (psyllium husk)] 0.4 gram Capsule 0.4 g PO BEDTIME sulfamethoxazole-trimethoprim [Bactrim DS] 800-160 mg tablet 1 tab PO Q48H Artificial Tears(jv-udba-[id number]) 1-0.2-0.2 % Drops 2 drp ophthalmic-Right Q4H PRN (Reason: Eye pain/irritation) Qty: 30 0RF omega-3 fatty acids 1,000 mg capsule 1,000 mg PO DAILY ascorbic acid (vitamin C) 1,000 mg tablet 1 g PO DAILY Centrum 18-400 mg-mcg tablet 1 tab PO DAILY atorvastatin 10 mg tablet 10 mg PO BEDTIME Qty: 90 3RF prednisone 20 mg tablet 30 mg PO DAILY Rx Instructions: 10/2024 taking 50 mg QD Referrals: Joseph Boston MD [Physician, Cardiology] - 12/18/24 Print Language: Slovenian
[2024-12-13 11:49] LABS: MANUAL DIFF FLAG NO
[2024-12-13 11:50] LABS: Hematocrit 37.7 % (42.0-52.0); Hemoglobin 12.4 g/dl (14.0-18.0); Imm Gran Abs Auto 0.15 X10*3/uL (0.00-0.03); Imm Gran Pct Auto 1.2 % (0.0-0.4); Lymphocytes Absolute Auto 0.9 X10*3/uL (1.2-4.9); Mean Corpuscular HGB Conc 32.9 g/dl (31.0-36.0); Mean Corpuscular Hemoglobin 29.8 pg (27.0-33.0); Mean Corpuscular Volume 90.6 fL (80.0-98.0); NRBC Abs Auto 0.000 X10*3/uL (0.0-0.012); NRBC Pct Auto 0.0 /100WBC (0.0-0.2); Platelet Count 217 X10*3/uL (160-400); Red Blood Count 4.16 X10*6/uL (4.60-5.80); White Blood Count 12.8 X10*3/uL (4.8-10.8)
--- NOTE | 2024-12-13 12:02 | ED_ITS ---
HPI - Arrhythmia/Palpitations General Chief Complaint: Arrhythmia/Palpitations Stated Complaint: wants to check pulse Time Seen by Provider: 12/13/24 11:52 History of Present Illness HPI narrative: Patient is a 69-year-old male with a history of atrial flutter in the past. Presented today with having palpitation. Patient claims this morning his heart rate was anywhere from 110-150. He does not have a history of hypertension he does not have a history of congestive heart failure no history of peripheral vascular disease. Patient denies any loss of consciousness. Denies any near syncopal episodes. The symptoms lasted for about an hour subsequently subsided. There is no bloody stool. He is not on blood thinner. He denies any trauma. No coughing or congestion or upper respiratory symptoms. No diaphoresis. Related Data Home Medications ?Medication ?Instructions ?Recorded ?Confirmed ascorbic acid (vitamin C) 1,000 mg 1 g PO DAILY 11/23/24 tablet multivitamin-ferrous 1 tab PO DAILY 05/21/2011/12 fumarate-folic acid 18 mg-400 mcg tablet (Centrum) omega-3 fatty acids 1,000 mg 1,000 mg PO DAILY 0 11/23/24 capsule diphenhydramine HCl 25 mg tablet 25 mg PO DAILY PRN Al lergy Symptoms 05/27/24 11/23/24 (Benadryl Allergy) pcvfqpw-fohljezymomvl-qcwmikur 250 1 tab PO Q4-6H PRN Headache 07/31/24 11/23/24 mg-250 mg-65 mg tablet (Excedrin Migraine) psyllium husk 0.4 gram capsule 0.4 g PO BEDTIME 11/23/24 (Fiber (psyllium husk)) sulfamethoxazole 800 1 tab PO Q48H 10/20/2411/23 mg-trimethoprim 160 mg tablet (Bactrim DS) prednisone 20 mg tablet 30 mg PO DAILY 11/20/2411/12 Previous Rx's ?Medication ?Instructions ?Recorded enalapril maleate 10 mg tablet 10 mg PO DAILY #90 tabs 03/08/24 atorvastatin 10 mg tablet 10 mg PO BEDTIME #90 tabs peg [id number]-iacilkhmdjzm-helebxfy 1 2 drp ophthalmic-Right Q4H PRN Eye 10/21/24 %-0.2 %-0.2 % eye drops pain/irritation #30 mL (Artificial Tears ([id number])) metoprolol succinate 25 mg 25 mg PO DAILY #90 tabs tablet,extended release 24 hr omeprazole 20 mg capsule,delayed 20 mg PO DAILY@0630 # 90 caps 12/07/24 release encorafenib 75 mg capsule 300 mg (4 x 75 mg) PO DAILY #120 12/11/24 caps Allergies Allergy/AdvReac Type Severity Reaction Status Date / Time No Known Allergies Allergy Verified 12/13/24 11:16 Review of Systems 2 Review of Systems: Positive palpitation Yes all other systems are reviewed and are negative PMFSH Past Medical History Attestation statement: The following information was validated with the patient. Medical History Metastatic melanoma Metastasis to brain Aseptic meningitis Obesity (BMI 30.0-34.9) PSA elevation Overweight (BMI 25.0-29.9) Finger fracture, right Nephrolithiasis Osteoarthritis Hypercholesterolemia Hypertension Surgical History Melanoma History of tonsillectomy Family History Family History Mother Bladder cancer Father Prostate cancer Social History Social History Household Members: None Housing: House Do you presently have visiting nurse or other home services: No Alcohol intake: former Patient Tobacco Use Status: Never used Tobacco e-Cigarette/Vaping Use: Never Used Second Hand Smoke Exposure: No Advance Directives: Yes Advance Directives on File: Yes Advance Directives Date on File: 09/22/22 Do you have a plan to hurt others: No Plan service: Yes Current occupational status: employed Sexual orientation: Straight/Heterosexual Gender identity: Male Cognitive needs: No Hearing needs: No Vision needs: Yes Physical Exam 2 Vital Signs: Vital Signs: Last Vital Signs Temp 98.2 F 12/13/24 12:14 Pulse 85 12/13/24 12:14 Resp 20 12/13/24 12:14 BP 97/51 L 12/13/24 12:14 Pulse Ox 99 12/13/24 12:14 O2 Del Method Room Air 12/13/24 12:14 BMI result Body Mass Index 31.8 Appearance: Alert. Oriented X3. No acute distress. Eyes: Pupils equal, round and reactive to light. ENT: Pharynx normal. Neck: Normal inspection. Neck supple. No lymph nodes noted. No crepitus CVS: Normal heart rate and rhythm. Pulses normal. Normal S1 and S2 Respiratory: No respiratory distress. Breath sounds normal. No Wheezing. No rales Abdomen: Soft and nontender. No rigidity. No distention. good BS x4 Skin: Skin warm and dry. Normal skin color. Normal skin turgor. Extremities: No lower extremity edema. Neurovascular intact to all extremities. No Lacerations. No Rash Neuro: Oriented X 3. No motor deficit. No sensory deficit. Moving all extermities. No slurred speech Medical Decision Making Medical Decision Making [facility] Narrative: 12:00 My interpretation patient's EKG showed a sinus rhythm heart rate is 80 PA QRS QTC normal no acute ST segment elevation patient had an episode where the heart rate went 110-154 about an hour. This is consistent with having atrial fibrillation/atrial flutter patient had a history of this in the past. It lasted for about 3 hours this time it lasted for about an hour he denies any chest pain there is no focal weakness. Patient's EKG on arrival appears to be sinus. Labs ordered. Patient's hemoglobin is 12.4. No signs of anemia. Electrolytes are currently pending will monitor carefully. Patient is electrolytes showed a normal TSH. Normal creatinine. Hemoglobin is 12.4. This is approximately baseline. Patient question was in atrial fibrillation but on arrival is back into a sinus rhythm. 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 Will discharge patient home close follow-up on an outpatient basis. Currently in no distress. No chest pain or shortness of breath no diaphoresis. Differential Diagnosis Differential Diagnoses: The differential diagnosis associated with the presentation includes Atrial fibrillation, palpitation Admission/Observation Consideration of admission/observation: Escalation of care including admission/observation considered Consult Healthcare Provider Management of the patient was discussed with: Biomedical Equipment Specialist (Cardiology) Lab Data [facility] Lab Attestation statement: I reviewed the patient's lab results. 12/13/24 11:41 12/13/24 11:41 Labs: Lab Results 12/13/24 Range/Units 11:41 WBC 12.8 H (4.8-10.8) X10*3/uL RBC 4.16 L (4.60-5.80) X10*6/uL Hgb 12.4 L (14.0-18.0) g/dl Hct 37.7 L (42.0-52.0) % MCV 90.6 (80.0-98.0) fL MCH 29.8 (27.0-33.0) pg MCHC 32.9 (31.0-36.0) g/dl RDW 15.0 (11.0-16.0) % Plt Count 217 (160-400) X10*3/uL MPV 8.5 L (9.4-12.4) fL Immature Gran % (Auto) 1.2 H (0.0-0.4) % Neut % (Auto) 79.6 H (45-73) % Lymph % (Auto) 7.0 L (20-40) % [place] % (Auto) 11.6 H (2-11) % Eos % (Auto) 0.3 (0-4) % Baso % (Auto) 0.3 (0-2) % Lymph # (Auto) 0.9 L (1.2-4.9) X10*3/uL [place] # (Auto) 1.5 H (0.1-1.2) X10*3/uL Eos # (Auto) 0.0 (0.0-0.4) X10*3/uL Baso # (Auto) 0.0 (0.0-0.2) X10*3/uL Abs Immat Gran (auto) 0.15 H (0.00-0.03) X10*3/uL Absolute Neuts (auto) 10.2 H (2.0-8.3) x10*3/uL Absolute Nucleated RBC 0.000 (0.0-0.012) X10*3/uL Nucleated RBC % (auto) 0.0 (0.0-0.2) /100WBC Sodium 139 (135-145) mmol/L Potassium 3.7 (3.3-5.1) mmol/L Chloride 102 (96-108) mmol/L Carbon Dioxide 27 (22-29) mmol/L Anion Gap 14 (12-20) BUN 15 (9-16) mg/dL Creatinine 0.97 (0.5-1.4) mg/dL Estim Creat Clear Calc 86.5 Estimated GFR > 60 Random Glucose 84 (60-115) mg/dL Calcium 9.3 (8.4-10.2) mg/dL Magnesium 1.9 (1.6-2.6) mg/dL Total Bilirubin 0.9 (0.0-1.0) mg/dL AST 20 (5-37) U/L ALT 28 (0-40) U/L Alkaline Phosphatase 57 (39-117) U/L Total Protein 6.6 (6.5-8.0) g/dL Albumin 4.4 (3.5-5.0) g/dL TSH 2.93 (0.32-4.0) uIU/mL Independent Interpretation I performed an independent interpretation of an: EKG (Sinus heart rate is 80 PA QRS QTC normal no acute ST segment elevation) External Record Review External record reviewed: Inpatient record and Office record Chronic Conditions History of atrial fibrillation and past Discharge Plan Discharge Clinical Impression: Palpitations Patient Disposition: Home, Self-Care Instructions: Heart Palpitations (DC) Prescriptions: No Action enalapril maleate 10 mg tablet 10 mg PO DAILY Qty: 90 2RF metoprolol succinate 25 mg Tablet Extended Release 24 Hr 25 mg PO DAILY Qty: 90 0RF Protocol: Hold for SBP/HR < HOLD for SBP < : 90 HOLD for HR < : 60 omeprazole 20 mg capsule,delayed release(DR/EC) 20 mg PO DAILY@0630 Qty: 90 1RF encorafenib 75 mg Capsule 300 mg PO DAILY Qty: 120 3RF diphenhydramine HCl [Benadryl Allergy] 25 mg Tablet 25 mg PO DAILY PRN (Reason: Allergy Symptoms) Excedrin Migraine 250-250-65 mg Tablet 1 tab PO Q4-6H PRN (Reason: Headache) psyllium husk [Fiber (psyllium husk)] 0.4 gram Capsule 0.4 g PO BEDTIME sulfamethoxazole-trimethoprim [Bactrim DS] 800-160 mg tablet 1 tab PO Q48H Artificial Tears(cz-[id number]) 1-0.2-0.2 % Drops 2 drp ophthalmic-Right Q4H PRN (Reason: Eye pain/irritation) Qty: 30 0RF omega-3 fatty acids 1,000 mg capsule 1,000 mg PO DAILY ascorbic acid (vitamin C) 1,000 mg tablet 1 g PO DAILY Centrum 18-400 mg-mcg tablet 1 tab PO DAILY atorvastatin 10 mg tablet 10 mg PO BEDTIME Qty: 90 3RF prednisone 20 mg tablet 30 mg PO DAILY Rx Instructions: 10/2024 taking 50 mg QD Referrals: Joseph Boston MD [Physician, Cardiology] - 12/18/24 Print Language: Sinhala
[2024-12-13 12:14] VITALS: BP 97/51; PULSE 85; RESP 20; TEMP 36.8; O2SAT 99
[2024-12-13 12:17] LABS: Alanine Aminotransferase 28 U/L (0-40); Albumin Level 4.4 g/dL (3.5-5.0); Alkaline Phosphatase 57 U/L (39-117); Anion Gap 14 (12-20); Aspartate Amino Transferase 20 U/L (5-37); Blood Urea Nitrogen 15 mg/dL (9-16); Calcium 9.3 mg/dL (8.4-10.2); Carbon Dioxide 27 mmol/L (22-29); Chloride 102 mmol/L (96-108); Creatinine Clr Calc Pharmacy 86.5; Estimated Glomerular Filt Rate > 60; Magnesium 1.9 mg/dL (1.6-2.6); Potassium 3.7 mmol/L (3.3-5.1); Sodium 139 mmol/L (135-145); Total Protein 6.6 g/dL (6.5-8.0)
[2024-12-13 14:30] VITALS: BP 107/44; PULSE 86; RESP 22; O2SAT 97
[2024-12-13 14:40] VITALS: BP 107/44; PULSE 86; RESP 22; TEMP 36.8; O2SAT 97
== END 2024-12-13 14:41 | disposition home or self-care (01) ==
PROVIDERS: Physician Assistant; Emergency Provider Emergency Medicine Emergency Medical Services; PCP Internal Medicine
DX: R00.2 Palpitations (principal); I10 Essential (primary) hypertension; E78.00 Pure hypercholesterolemia, unspecified; Z79.899 Other long term (current) drug therapy
CPT/HCPCS: 36415; 80053; 83735; 84443; 85025; 93005; 99283

== ENCOUNTER → 2024-12-13 11:15 | Outpatient (BNV) | payer MEDICARE, OTHER, SELFPAY | PROVIDERS: Emergency Provider Emergency Medicine Emergency Medical Services; PCP Internal Medicine; Visit Provider Internal Medicine Cardiovascular Disease | DX: R00.2 Palpitations (principal) | CPT/HCPCS: 93010 ==

== ENCOUNTER 2024-12-14 08:41 | Emergency (ER) | payer MEDICARE, OTHER, SELFPAY ==
--- OUTSIDE RECORDS SUMMARY | 2024-06-26 08:10 | XMS_ITS ---
Author Organization [facility] Address [address] [place] [address] Care Team Providers Care Oil Well Services Field Supervisor Name Role Phone Raghu Contreras MD Primary Care Provider Estrella Ewing [facility] [phone] REASON FOR VISIT screening,hx polyps Encounters Encounter Location Date Provider Diagnosis [facility] [address] [place], [place] [phone] 06/26/2024 Estrella Mosqueda Plan Of Treatment No Information Progress Notes * ИВАН SHELBYDOB:1955 ([age] yo M)Acc No.[id number]:06/26/2024 COLON WITH MAC Patient: ИВАН PINTO Provider: Danial Mosqueda MD :1955 A ge:68 Y S ex:Male Date:06/26/2024 Address:[address] [place], [place] [id number] Pcp:Raghu Contreras MD Subjective: * Chief Complaints: [...] Mosqueda MD Date: 0 06/26/2024 Generated for Harrison ng/Fajusticeg/eTransmitting on: 0 12/14/2024 10:25 AM EDT
--- NOTE | ~2024-12-14 | CT_ITS ---
EXAMINATION: CT ANGIOGRAM CHEST CLINICAL INFORMATION: Palpitations. COMPARISON: July 30, 2024. TECHNIQUE: Multiple axial images were obtained through the chest after the administration of 65 mL of Omnipaque 350 intravenous contrast. Extensive vascular post-processing including two-dimensional and three-dimensional reformatted images were created and reviewed on an independent workstation. SmartPrep technique. This CT examination was performed using dose optimization techniques as appropriate, variously including the following: *Automated exposure control *Adjustment of mA and/or kV according to patient size (this includes techniques or standardized protocols for targeted exams where dose is matched to indication/reason for exam; i.e. extremities or head) *Use of iterative reconstruction technique DLP: 353 mGy centimeter. FINDINGS: Main pulmonary artery or its main branches demonstrated normal enhancement pattern without intimal flap. Poor evaluation of the small subsegmental pulmonary branches with heterogeneous enhancement of the lumen. No aneurysm or dissection, thoracic aorta. Calcified plaques in the coronary arteries and the aortic arch. No mediastinal or perihilar lymphadenopathy. No pericardial effusion. Pulmonary groundglass in the lower lung lobes. No consolidation. No pleural effusion. No pneumothorax. No calcified pleural plaques. No pneumomediastinum. Fused/hemivertebra T8-9 vertebral bodies. There is fused/hemivertebra,T1. Dextroconvex curvature apex at cervical thoracic junction. Levoconvex curvature apex at C3-4. Multilevel spondylosis. No acute fracture, axial skeleton. S-shaped curvature of the cervical thoracic and upper lumbar spine. CT/CT angio chest PE protocol IMPRESSION: No acute pulmonary artery emboli. Concerning mild interstitial lung edema in the correct clinical settings. Abnormal segmentation, axial skeleton. Fleischner guidelines were followed. Electronically signed by: Aaron Navarro MD 12/14/2024 10:44 AM EDT
--- NOTE | 2024-12-14 08:43 | ECG_ITS ---
Test Reason : chest pain Blood Pressure : */* mmHG Vent. Rate : 96 BPM Atrial Rate : 96 BPM P-R Int : 138 ms QRS Dur : 72 ms QT Int : 328 ms P-R-T Axes : 41 5 -63 degrees QTcB Int : 414 ms Normal sinus rhythm ST & T wave abnormality, consider lateral ischemia Abnormal ECG When compared with ECG of 13-Dec-2024 11:31, T wave inversion now evident in Lateral leads Referred By: Generic ED Physician Electronically Signed By: MAGGIE MONK MD
[2024-12-14 08:52] VITALS: BP 116/61; PULSE 97; RESP 18; TEMP 37.4; O2SAT 96; BMI 30.1
--- NOTE | 2024-12-14 08:54 | ED.GENADULT ---
HPI - General Adult General Chief complaint: General Medical Stated complaint: PT STS HEART POUNDING/RESOLVED,SEEN T-1 PER EMS Time Seen by Provider: 12/14/24 08:53 Source: patient, RN notes reviewed and old records reviewed Mode of arrival: ambulatory Limitations: no limitations History of Present Illness ED Provider: Marvin HPI narrative: Patient is a 61-year-old male with history of melanoma with brain metastasis, prostate CA, transient afib/flutter, HTN, hypercholesterolemia presenting to the emergency department with complaint of palpitations which he describes as ?my heart pounding out of my chest. ? Seen in this ED yesterday for same. States that symptoms began shortly after he woke up and resolved prior to arrival of EMS. He denies any associated chest pain or shortness of breath. Complains of some nausea but states this is his baseline due to his cancer medications. Denies vomiting. 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 MD complaint: palpitations Onset (ago): hour(s) Related Data Home Medications ?Medication ?Instructions ?Recorded ?Confirmed ascorbic acid (vitamin C) 1,000 mg 1 g PO DAILY 05/21/20 11/23/24 tablet multivitamin-ferrous 1 tab PO DAILY 05/21/20 11/23/24 fumarate-folic acid 18 mg-400 mcg tablet (Centrum) omega-3 fatty acids 1,000 mg 1,000 mg PO DAILY 05/21/20 11/23/24 capsule diphenhydramine HCl 25 mg tablet 25 mg PO DAILY PRN Allergy Symptoms 05/27/24 11/23/24 (Benadryl Allergy) [id number]-[id number]-zzjaifsh 250 1 tab PO Q4-6H PRN Headache 07/31/24 11/23/24 mg-250 mg-65 mg tablet (Excedrin Migraine) psyllium husk 0.4 gram capsule 0.4 g PO BEDTIME 07/31/24 11/23/24 (Fiber (psyllium husk)) sulfamethoxazole 800 1 tab PO Q48H 10/20/24 11/23/24 mg-trimethoprim 160 mg tablet (Bactrim DS) prednisone 20 mg tablet 30 mg PO DAILY 11/20/24 11/23/24 Previous Rx's ?Medication ?Instructions ?Recorded enalapril maleate 10 mg tablet 10 mg PO DAILY #90 tabs 03/08/24 atorvastatin 10 mg tablet 10 mg PO BEDTIME #90 tabs 06/02/24 peg [id number] 1 2 drp ophthalmic-Right Q4H PRN Eye 10/21/24 %-0.2 %-0.2 % eye drops pain/irritation #30 mL (Artificial Tears ([id number])) metoprolol succinate 25 mg 25 mg PO DAILY #90 tabs 12/07/24 tablet,extended release 24 hr omeprazole 20 mg capsule,delayed 20 mg PO DAILY@0630 #90 caps 12/07/24 release encorafenib 75 mg capsule 300 mg (4 x 75 mg) PO DAILY #120 12/11/24 caps Allergies Allergy/AdvReac Type Severity Reaction Status Date / Time No Known Allergies Allergy Verified 12/14/24 08:53 Review of Systems Review of Systems: As per HPI Yes all other systems are reviewed and are negative Constitutional: Constitutional: Reports as per HPI PMFSH Past Medical History Medical History Metastatic melanoma Metastasis to brain Aseptic meningitis Obesity (BMI 30.0-34.9) PSA elevation Overweight (BMI 25.0-29.9) Finger fracture, right Nephrolithiasis Osteoarthritis Hypercholesterolemia Hypertension Surgical History Melanoma History of tonsillectomy Family History Family History Mother Bladder cancer Father Prostate cancer Social History Social History Household Members: None Housing: House Do you presently have visiting nurse or other home services: No Alcohol intake: former Patient Tobacco Use Status: Never used Tobacco e-Cigarette/Vaping Use: Never Used Second Hand Smoke Exposure: No Advance Directives: Yes Advance Directives on File: Yes Advance Directives Date on File: 09/22/22 Do you have a plan to hurt others: No Plan service: Yes Current occupational status: employed Sexual orientation: Straight/Heterosexual Gender identity: Male Cognitive needs: No Hearing needs: No Vision needs: Yes Physical Exam ED Vital Signs: Vital Signs - 24 hr 12/14/24 08:52 12/14/24 10:13 Temperature 99.3 F 98.6 F Pulse Rate 97 97 Respiratory Rate 18 16 Blood Pressure 116/61 105/50 L Pulse Oximetry 96 95 Oxygen Delivery Method Room Air Room Air BMI result Body Mass Index 30.1 Vital signs have been reviewed and appear to be correct. Blood pressure normal. Heart rate normal. Respiratory rate normal. Temperature normal. Oxygen saturation normal. Const General: cooperative, healthy appearing and no acute distress Orientation/consciousness: oriented to person, oriented to place, oriented to time and patient oriented x3 Limitations: no limitations HENMT Head: Yes normocephalic and Yes atraumatic Ears: external ears normal General nose exam: Normal external nose present Face and sinus: Yes face symmetric Mouth: oropharynx normal and moist mucous membranes Throat: Yes uvula midline Eyes Pupils: Equal, round and reactive pupils present Neck Neck: Yes normal visual inspection and Yes supple Resp Effort & Inspection: normal respiratory effort and able to speak in complete sentences Auscultation: clear to auscultation bilaterally Cardio Rate: regular rate Rhythm: regular rhythm Heart sounds: S1 normal heart sound present and S2 normal heart sound present GI Palpation (GI): Soft to palpation and nontender Auscultation: normoactive bowel sounds General: Yes no CVA tenderness Back/Spine/Pelvis Back: no CVA tenderness Skin General skin exam: elasticity normal and turgor normal Neuro General: oriented to person, oriented to place, oriented to time, patient oriented x3, moves all extremities, no focal motor deficits and CN's II-XI intact bilaterally Cranial nerves: Yes Equal, round and reactive pupils present Cognition (Neuro): normal cognition Extrem General: Yes full ROM, Yes no pedal edema and Yes no calf tenderness Psych Mental Status: mental status grossly normal Affect: normal affect Thought process: Normal thought process present Medications Administered Discontinued Medications Generic Name Dose Route Start Last Admin Trade Name Freq PRN Reason Stop Dose Admin Acetaminophen 975 mg 12/14/24 10:02 12/14/24 10:13 Acetaminophen 325 Mg Tablet PO 12/14/24 10:03 975 mg ONCE ONE Administration Sodium Chloride 500 mls @ 500 mls/hr 12/14/24 09:15 12/14/24 09:40 Ns IV 12/14/24 10:14 500 mls/hr .Q1H ZACHARY Administration Iohexol 100 ml 12/14/24 10:05 12/14/24 10:07 Iohexol 350 Mg/Ml 100 Ml Infus..Btl IV 12/14/24 10:06 65 ml ONCE ONE Administration Medical Decision Making Medical Decision Making [facility] Narrative: Patient is a 61-year-old male with history of melanoma with brain metastasis, prostate CA, transient afib/flutter, HTN, hypercholesterolemia presenting to the emergency department with complaint of palpitations which he describes as ?my heart pounding out of my chest. ? On exam patient is awake, A+Ox3, VS WNL, afebrile, normal neurological exam without focal deficits, physical exam findings as above. Given reported symptoms and physical exam findings, initial differential includes but is not limited to cardiac arrhythmia, electrolyte abnormality, PE. Less likely ACS. EKG shows sinus rhythm with T-wave inversion in lateral leads. Labs notable for anemia consistent with prior values, no leukocytosis, no significant electrolyte abnormalities, mildly elevated BNP, negative troponin x2. CTA chest notable for no evidence of PE, mild interstitial lung edema. My interpretation is in agreement with the radiologist's interpretation. Patient noting that his HCTZ was recently discontinued by his PCP on 11/20 due to hypotension. Case discussed with Dr. Rocha who does not feel EKG changes represent ACS in the setting of negative troponins and no chest pain. He recommends one time dose of 20mg IV lasix, patient can follow up with cardiology outpatient. Plan discussed with patient as well as strict return precautions. Patient verbalized understanding of and agreement with plan. Differential Diagnosis Differential Diagnoses: The differential diagnosis associated with the presentation includes as per [facility] Admission/Observation Consideration of admission/observation: Escalation of care including admission/observation considered Patient would have been admitted to the hospital had their work up had any findings where hospital admission was appropriate and their clinical presentation warranted hospital admission. Consult Healthcare Provider Management of the patient was discussed with: [employer] Inspector (Dr. Rocha) Lab Data [facility] Lab Attestation statement: I reviewed the patient's lab results. As per [facility] 12/14/24 09:37 12/14/24 09:36 Labs: Lab Results 12/14/24 12/14/24 12/14/24 Range/Units 09:36 09:37 12:43 WBC 9.5 (4.8-10.8) X10*3/uL RBC 3.89 L (4.60-5.80) X10*6/uL Hgb 11.9 L (14.0-18.0) g/dl Hct 35.2 L (42.0-52.0) % MCV 90.5 (80.0-98.0) fL MCH 30.6 (27.0-33.0) pg MCHC 33.8 (31.0-36.0) g/dl RDW 15.2 (11.0-16.0) % Plt Count 202 (160-400) X10*3/uL MPV 8.3 L (9.4-12.4) fL Immature Gran % (Auto) 1.0 H (0.0-0.4) % Neut % (Auto) 74.8 H (45-73) % Lymph % (Auto) 10.7 L (20-40) % [place] % (Auto) 12.8 H (2-11) % Eos % (Auto) 0.4 (0-4) % Baso % (Auto) 0.3 (0-2) % Lymph # (Auto) 1.0 L (1.2-4.9) X10*3/uL [place] # (Auto) 1.2 (0.1-1.2) X10*3/uL Eos # (Auto) 0.0 (0.0-0.4) X10*3/uL Baso # (Auto) 0.0 (0.0-0.2) X10*3/uL Abs Immat Gran (auto) 0.10 H (0.00-0.03) X10*3/uL Absolute Neuts (auto) 7.1 (2.0-8.3) x10*3/uL Absolute Nucleated RBC 0.000 (0.0-0.012) X10*3/uL Nucleated RBC % (auto) 0.0 (0.0-0.2) /100WBC PT 12.7 H (10.9-12.4) SEC INR 1.1 (0.9-1.1) Sodium 137 (135-145) mmol/L Potassium 3.8 (3.3-5.1) mmol/L Chloride 103 (96-108) mmol/L Carbon Dioxide 24 (22-29) mmol/L Anion Gap 14 (12-20) BUN 16 (9-16) mg/dL Creatinine 1.03 (0.5-1.4) mg/dL Estim Creat Clear Calc 79.5 Estimated GFR > 60 Random Glucose 76 (60-115) mg/dL Calcium 8.8 (8.4-10.2) mg/dL Magnesium 2.0 (1.6-2.6) mg/dL Total Bilirubin 0.7 (0.0-1.0) mg/dL AST 19 (5-37) U/L ALT 27 (0-40) U/L Alkaline Phosphatase 52 (39-117) U/L Troponin I High Sens 5.0 D 5.7 (<3.5-35.0) ng/L B-Natriuretic Peptide 147 H (<100) pg/mL Total Protein 6.4 L (6.5-8.0) g/dL Albumin 4.2 (3.5-5.0) g/dL TSH 2.85 (0.32-4.0) uIU/mL Independent Interpretation I performed an independent interpretation of an: EKG (Sinus rhythm, rate 96 beats per minute, normal PA interval and QTC, new T-wave inversion in lateral leads compared to EKG from yesterday) and CT Scan (CT chest without evidence of PE) Radiology Impression Discussion of test interpretation with radiology: I have reviewed the radiologist's reading. Radiologist Impression: CT/CT angio chest PE protocol IMPRESSION: No acute pulmonary artery emboli. Concerning mild interstitial lung edema in the correct clinical settings. Abnormal segmentation, axial skeleton. Fleischner guidelines were followed. External Record Review External record reviewed: Inpatient record, Office record and Outpatient record Critical Care Time Critical Care Time Critical Care Time: Yes Total Critical Care Time: 33 Attestation: I have personally provided critical care time exclusive of time spent on separately billable procedures. Time includes review of lab data, radiology results, discussion with consultants, and monitoring for potential decompensation. Intervention performed as documented. Discharge Plan Discharge Clinical Impression: Heart palpitations Patient Disposition: Home, Self-Care Instructions: Heart Palpitations (DC) Additional Instructions: You were evaluated in the emergency department today for heart palpitations. Your evaluation did not reveal evidence of conditions requiring emergent medical treatment at this time. We recommend that you follow-up with your rn occupational health this week for a follow-up appointment to discuss your symptoms. They may recommend that you wear a Holter monitor. When it is very hot out or you are at work, we recommend that you are having some drinks with electrolytes such as Pedialyte, Gatorade, Powerade, etc. instead of just plain water. Return to the emergency department if you develop chest pain, additional episodes of palpitations, shortness of breath or difficulty breathing, profuse sweating, nausea or vomiting, dizziness, lightheadedness, or fainting, or any other new or concerning symptoms. Prescriptions: No Action enalapril maleate 10 mg tablet 10 mg PO DAILY Qty: 90 2RF metoprolol succinate 25 mg Tablet Extended Release 24 Hr 25 mg PO DAILY Qty: 90 0RF Protocol: Hold for SBP/HR < HOLD for SBP < : 90 HOLD for HR < : 60 omeprazole 20 mg capsule,delayed release(DR/EC) 20 mg PO DAILY@0630 Qty: 90 1RF encorafenib 75 mg Capsule 300 mg PO DAILY Qty: 120 3RF diphenhydramine HCl [Benadryl Allergy] 25 mg Tablet 25 mg PO DAILY PRN (Reason: Allergy Symptoms) Excedrin Migraine 250-250-65 mg Tablet 1 tab PO Q4-6H PRN (Reason: Headache) psyllium husk [Fiber (psyllium husk)] 0.4 gram Capsule 0.4 g PO BEDTIME sulfamethoxazole-trimethoprim [Bactrim DS] 800-160 mg tablet 1 tab PO Q48H Artificial Tears([id number]) 1-0.2-0.2 % Drops 2 drp ophthalmic-Right Q4H PRN (Reason: Eye pain/irritation) Qty: 30 0RF omega-3 fatty acids 1,000 mg capsule 1,000 mg PO DAILY ascorbic acid (vitamin C) 1,000 mg tablet 1 g PO DAILY Centrum 18-400 mg-mcg tablet 1 tab PO DAILY atorvastatin 10 mg tablet 10 mg PO BEDTIME Qty: 90 3RF prednisone 20 mg tablet 30 mg PO DAILY Rx Instructions: 10/2024 taking 50 mg QD Referrals: Joseph Boston MD [Physician, Cardiology] Referral Note: 2 ED visits in 2 days for palpitations Clinical Impression: Heart palpitations Print Language: Swiss
[2024-12-14 09:42] LABS: MANUAL DIFF FLAG NO
[2024-12-14 09:46] LABS: Hematocrit 35.2 % (42.0-52.0); Hemoglobin 11.9 g/dl (14.0-18.0); Imm Gran Abs Auto 0.10 X10*3/uL (0.00-0.03); Imm Gran Pct Auto 1.0 % (0.0-0.4); Lymphocytes Absolute Auto 1.0 X10*3/uL (1.2-4.9); Mean Corpuscular HGB Conc 33.8 g/dl (31.0-36.0); Mean Corpuscular Hemoglobin 30.6 pg (27.0-33.0); Mean Corpuscular Volume 90.5 fL (80.0-98.0); NRBC Abs Auto 0.000 X10*3/uL (0.0-0.012); NRBC Pct Auto 0.0 /100WBC (0.0-0.2); Platelet Count 202 X10*3/uL (160-400); Red Blood Count 3.89 X10*6/uL (4.60-5.80); White Blood Count 9.5 X10*3/uL (4.8-10.8)
[2024-12-14 09:48] LABS: INTERNATIONAL NORM RATIO 1.1 (0.9-1.1); Prothrombin Time 12.7 SEC (10.9-12.4)
[2024-12-14 10:03] LABS: B Type Natriuretic Peptide 147 pg/mL (<100)
[2024-12-14 10:04] LABS: Alanine Aminotransferase 27 U/L (0-40); Albumin Level 4.2 g/dL (3.5-5.0); Alkaline Phosphatase 52 U/L (39-117); Anion Gap 14 (12-20); Aspartate Amino Transferase 19 U/L (5-37); Blood Urea Nitrogen 16 mg/dL (9-16); Calcium 8.8 mg/dL (8.4-10.2); Carbon Dioxide 24 mmol/L (22-29); Chloride 103 mmol/L (96-108); Creatinine Clr Calc Pharmacy 79.5; Estimated Glomerular Filt Rate > 60; Magnesium 2.0 mg/dL (1.6-2.6); Potassium 3.8 mmol/L (3.3-5.1); Sodium 137 mmol/L (135-145); Total Protein 6.4 g/dL (6.5-8.0)
[2024-12-14 10:05] LABS: Troponin-I High Sensitivity 5.0 ng/L (<3.5-35.0)
[2024-12-14] MEDS: iohexoL 350 MG/ML 100 ML INFUS..BTL IV (10:07)
[2024-12-14 10:13] VITALS: BP 105/50; PULSE 97; RESP 16; TEMP 37; O2SAT 95
[2024-12-14 13:12] LABS: Troponin-I High Sensitivity 5.7 ng/L (<3.5-35.0)
[2024-12-14 14:42] VITALS: BP 115/60; PULSE 79; RESP 13; TEMP 37.4; O2SAT 96
[2024-12-14 14:44] VITALS: BP 115/60; PULSE 79; RESP 13; TEMP 37.4; O2SAT 96
--- NOTE | 2024-12-18 16:13 | P.EN_ITS ---
Patient was in emergency department twice last week. He went in [place] [facility] angiogram was negative for PE and labs were normal. He developed body aches and went to [facility] emergency department. He had repeat CT head which showed multiple hemorrhagic metastasis throughout the cerebrum right greater than left with surrounding vasogenic edema and localized mass effect increase in size and number from prior MRI study. Largest lesion measuring 2.4 x 1.7 cm. He was started on dexamethasone 4 mg p.o. t.i.d.. His body aches have improved. He did not have any neurological deficits or seizures by history. I spoke to the patient, he is aware of the above findings. He was asked to stop prednisone. He is being Center urgently to [facility] for radiation oncology consultation.
== END 2024-12-14 14:57 | disposition home or self-care (01) ==
PROVIDERS: Registered Nurse Emergency; Emergency Provider Emergency Medicine Emergency Medical Services; PCP Internal Medicine
DX: R00.2 Palpitations (principal); I48.91 Unspecified atrial fibrillation; I10 Essential (primary) hypertension; E78.00 Pure hypercholesterolemia, unspecified; J96.00 Acute respiratory failure, unspecified whether with hypoxia or hypercapnia; C61 Malignant neoplasm of prostate; C43.9 Malignant melanoma of skin, unspecified; C79.31 Secondary malignant neoplasm of brain; Z79.899 Other long term (current) drug therapy; Z79.02 Long term (current) use of antithrombotics/antiplatelets; Z79.82 Long term (current) use of aspirin
CPT/HCPCS: 36415; 71275; 80053; 83735; 83880; 84443; 84484; 85025; 85610; 93005; 99285; 99291; Q9967

== ENCOUNTER → 2024-12-14 08:43 | Outpatient (BNV) | payer MEDICARE, OTHER, SELFPAY | PROVIDERS: Emergency Provider Emergency Medicine Emergency Medical Services; PCP Internal Medicine; Visit Provider Internal Medicine Cardiovascular Disease | DX: R94.31 Abnormal electrocardiogram [ECG] [EKG] (principal); R07.9 Chest pain, unspecified | CPT/HCPCS: 93010 ==

== ENCOUNTER → 2024-12-14 09:10 | Outpatient (BNV) | payer MEDICARE, OTHER, SELFPAY | PROVIDERS: Emergency Provider Emergency Medicine Emergency Medical Services; PCP Internal Medicine; Visit Provider Radiology Diagnostic Radiology | DX: R00.2 Palpitations (principal) | CPT/HCPCS: 71275 ==

== ENCOUNTER 2024-12-20 04:18 | Emergency (ER) | payer MEDICARE, OTHER, SELFPAY ==
--- OUTSIDE RECORDS SUMMARY | 2024-06-26 08:10 | XMS_ITS ---
Author Organization [facility] Address [address] [place] [address] Care Team Providers Care Hide Dropper Name Role Phone Raghu Contreras MD Primary Care Provider Estrella Ewing [facility] [phone] REASON FOR VISIT screening,hx polyps Encounters Encounter Location Date Provider Diagnosis [facility] [place] Outpatient [address] [place], [place] [id number] 06/26/2024 Estrella Mosqueda Plan Of Treatment No Information Progress Notes * ИВАН SHELBYDOB:1955 ([age] yo M)Acc No.[id number]:06/26/2024 COLON WITH MAC Patient: ИВАН PINTO Provider: Danial Mosqueda MD :1955 A ge:68 Y S ex:Male Date:06/26/2024 Address:[address] [place], [place] [id number] Pcp:Raghu Contreras MD Subjective: * Chief Complaints: [...] 06/26/2024 Generated for Harrison ng/Fajusticeg/eTransmitting on: 0 12/20/2024 06:13 AM EDT
[2024-12-20 04:25] VITALS: BP 141/61; PULSE 53; RESP 18; TEMP 36.6; O2SAT 99; BMI 31.3
[2024-12-20 05:25] LABS: MANUAL DIFF FLAG NO
[2024-12-20 05:26] LABS: Hematocrit 32.9 % (42.0-52.0); Hemoglobin 11.4 g/dl (14.0-18.0); Imm Gran Abs Auto 0.30 X10*3/uL (0.00-0.03); Imm Gran Pct Auto 2.3 % (0.0-0.4); Lymphocytes Absolute Auto 1.4 X10*3/uL (1.2-4.9); Mean Corpuscular HGB Conc 34.7 g/dl (31.0-36.0); Mean Corpuscular Hemoglobin 30.6 pg (27.0-33.0); Mean Corpuscular Volume 88.4 fL (80.0-98.0); NRBC Abs Auto 0.000 X10*3/uL (0.0-0.012); NRBC Pct Auto 0.0 /100WBC (0.0-0.2); Platelet Count 245 X10*3/uL (160-400); Red Blood Count 3.72 X10*6/uL (4.60-5.80); White Blood Count 13.1 X10*3/uL (4.8-10.8)
[2024-12-20 05:39] LABS: Alanine Aminotransferase 20 U/L (0-40); Albumin Level 3.9 g/dL (3.5-5.0); Alkaline Phosphatase 41 U/L (39-117); Anion Gap 15 (12-20); Aspartate Amino Transferase 17 U/L (5-37); Blood Urea Nitrogen 20 mg/dL (9-16); Calcium 8.6 mg/dL (8.4-10.2); Carbon Dioxide 20 mmol/L (22-29); Chloride 101 mmol/L (96-108); Creatinine Clr Calc Pharmacy 114.1; Estimated Glomerular Filt Rate > 60; Potassium 4.3 mmol/L (3.3-5.1); Sodium 132 mmol/L (135-145); Total Protein 5.9 g/dL (6.5-8.0)
[2024-12-20 06:02] LABS: Resp Syncy Virus RNA Qual PCR NEGATIVE (Negative); SARS COV2 PCR INHOUSE NEGATIVE (Negative)
--- OUTSIDE RECORDS SUMMARY | 2024-12-20 06:14 | XMS_ITS | Clinical Summary ---
Author Organization [facility] Address [address] [place] [address] Phone Care Team Providers Care It Security Specialist Name Role Phone Unavailable Primary Care Provider Unavailabl e Social History Tobacco Use Types Packs/Day Years Used Date Smoking Tobacco: Never Assessed Sex and Gender Information Value Date Recorded Sex Assigned at Not on file Legal Sex Male 3:44 PM EDT Gender Identity Not on file Sexual Orientation Not on file Plan of Treatment Health Maintenance Due Date Last Done Comments Cholesterol Screening (Lipid Panel) 04/05/2024 Colorectal Cancer Screening: Colonoscopy 04/05/2024 Depression Screening 04/05/2024 Falls Risk Assessment 04/05/2024 Hepatitis C Screening 04/05/2024 Medicare Annual Wellness Visit 04/05/2024 Social Influencers of Health Screening 04/05/2024 COVID-19 Vaccine (8 - Moderna risk 2023- season) 2024 02/25/2024, 03/05/2023, 04/16/2022, Additional history exists Influenza Vaccine (#1) 2025 , 03/09/2023, 02/13/2022, Additional history exists DTaP,Tdap,and Td Vaccines (2 - Td or Tdap) 02/26/2028 02/25/2018 Zoster Vaccines Completed 03/05/2019, 12/13, 12/18/2016 Pneumococcal Vaccine: 50+ Years Completed 02/13/2022 RSV Immunization Adult Patients Completed 03/05/2023 HIB Vaccines Aged Out No longer eligi ble based on patient's age to complete this topic HPV Vaccines Aged Out No longer eligi ble based on patient's age to complete this topic Hepatitis A Vaccines Aged Out No long er eligible based on patient's age to complete this topic Hepatitis B Vaccines Aged Out No long er eligible based on patient's age to complete this topic IPV Vaccines Aged Out No longer eligi ble based on patient's age to complete this topic MMR Vaccines Aged Out No longer eligi ble based on patient's age to complete this topic Meningococcal ACWY Vaccine Aged Out N o longer eligible based on patient's age to complete this topic Meningococcal B Vaccine Aged Out No l onger eligible based on patient's age to complete this topic RSV Immunization Patients Under 20 months Aged Out No longer eligible based on patient's age to complete this topic Varicella Vaccines Aged Out No longer eligible based on patient's age to complete this topic Insurance [facility]
[2024-12-20 08:00] VITALS: BP 133/72; PULSE 65; RESP 20; TEMP 36.6; O2SAT 97
--- NOTE | 2024-12-20 08:00 | ED_ITS ---
HPI - General Adult General Chief complaint: General Medical Stated complaint: body aches Time Seen by Provider: 12/20/24 07:55 Source: patient, RN notes reviewed and old records reviewed Mode of arrival: ambulatory Limitations: no limitations History of Present Illness ED Provider: Marvin AYERS narrative: Patient is a 61-year-old male with history of melanoma with brain metastasis, prostate CA, transient afib/flutter, HTN, hypercholesterolemia presenting to the emergency department with complaint of joint pain. Seen at [facility] on 12/15/24 for same complaint and had extensive workup. Patient was noted to have increased tumor burden on CT head at that visit. He was also treated empirically for tick borne illnesses with doxycycline. Provider at that visit consulted with patient's internet marketing specialist/oncologist, Dr. Rodriguez, who also recommended starting patient of dexamethasone. Patient states that since that visit his tick panel was resulted as negative. He denies fevers. States his joint pain is interfering with his sleep. He was scheduled for a PET scan this am, and had fasted prior, was found to have low POC glucose and the scan was deferred. MD complaint: joint pain Onset (ago): day(s) Related Data Home Medications ?Medication ?Instructions ?Recorded ?Confirmed ascorbic acid (vitamin C) 1,000 mg 1 g PO DAILY 11/23/24 tablet multivitamin-ferrous 1 tab PO DAILY 05/21/2011/12 fumarate-folic acid 18 mg-400 mcg tablet (Centrum) omega-3 fatty acids 1,000 mg 1,000 mg PO DAILY 0 11/23/24 capsule diphenhydramine HCl 25 mg tablet 25 mg PO DAILY PRN Al lergy Symptoms 05/27/24 11/23/24 (Benadryl Allergy) [id number]-felmbuzhfehrn-fajeqddl 250 1 tab PO Q4-6H PRN Headache 07/31/24 11/23/24 mg-250 mg-65 mg tablet (Excedrin Migraine) psyllium husk 0.4 gram capsule 0.4 g PO BEDTIME 11/23/24 (Fiber (psyllium husk)) sulfamethoxazole 800 1 tab PO Q48H 10/20/2411/23 mg-trimethoprim 160 mg tablet (Bactrim DS) Previous Rx's ?Medication ?Instructions ?Recorded enalapril maleate 10 mg tablet 10 mg PO DAILY #90 tabs 03/08/24 atorvastatin 10 mg tablet 10 mg PO BEDTIME #90 tabs peg [id number] 1 2 drp ophthalmic-Right Q4H PRN Eye 10/21/24 %-0.2 %-0.2 % eye drops pain/irritation #30 mL (Artificial Tears ([id number])) metoprolol succinate 25 mg 25 mg PO DAILY #90 tabs tablet,extended release 24 hr omeprazole 20 mg capsule,delayed 20 mg PO DAILY@0630 # 90 caps 12/07/24 release encorafenib 75 mg capsule 300 mg (4 x 75 mg) PO DAILY #120 12/11/24 caps cyclobenzaprine 10 mg tablet 10 mg PO TID PRN muscle s pasm #14 12/20/24 tabs Allergies Allergy/AdvReac Type Severity Reaction Status Date / Time No Known Allergies Allergy Verified 12/20/24 04:31 Review of Systems 2 Review of Systems: As per HPI Yes all other systems are reviewed and are negative Constitutional: Constitutional: Reports as per HPI PMFSH Past Medical History Medical History Metastatic melanoma Metastasis to brain Aseptic meningitis Obesity (BMI 30.0-34.9) PSA elevation Overweight (BMI 25.0-29.9) Finger fracture, right Nephrolithiasis Osteoarthritis Hypercholesterolemia Hypertension Surgical History Melanoma History of tonsillectomy Family History Family History Mother Bladder cancer Father Prostate cancer Social History Social History Household Members: None Housing: House Do you presently have visiting nurse or other home services: No Alcohol intake: former Patient Tobacco Use Status: Never used Tobacco e-Cigarette/Vaping Use: Never Used Second Hand Smoke Exposure: No Advance Directives: Yes Advance Directives on File: Yes Advance Directives Date on File: 09/22/22 service: Yes Current occupational status: employed Sexual orientation: Straight/Heterosexual Gender identity: Male Cognitive needs: No Hearing needs: No Vision needs: Yes Physical Exam ED Vital Signs: Vital Signs - 24 hr 12/20/24 04:25 12/20/24 08:00 12/20/24 10:00 Temperature 97.9 F 97.8 F 97.8 F Pulse Rate 53 65 65 Respiratory Rate 18 20 18 Blood Pressure 141/61 H 133/72 134/70 Pulse Oximetry 99 97 98 Oxygen Delivery Method Room Air Room Air Room Air BMI result Body Mass Index 31.3 Vital signs have been reviewed and appear to be correct. Blood pressure normal. Heart rate normal. Respiratory rate normal. Temperature normal. Oxygen saturation normal. Const General: cooperative, healthy appearing and no acute distress Orientation/consciousness: oriented to person, oriented to place, oriented to time and patient oriented x3 Limitations: no limitations HENMT Head: Yes normocephalic and Yes atraumatic Ears: external ears normal General nose exam: Normal external nose present Face and sinus: Yes face symmetric Mouth: oropharynx normal and moist mucous membranes Throat: Yes uvula midline Eyes Pupils: Equal, round and reactive pupils present Neck Neck: Yes normal visual inspection and Yes supple Resp Effort & Inspection: normal respiratory effort and able to speak in complete sentences Auscultation: clear to auscultation bilaterally Cardio Rate: regular rate Rhythm: regular rhythm Heart sounds: S1 normal heart sound present and S2 normal heart sound present GI Palpation (GI): Soft to palpation and nontender Auscultation: normoactive bowel sounds General: Yes no CVA tenderness Back/Spine/Pelvis Back: no CVA tenderness Skin General skin exam: elasticity normal and turgor normal Neuro General: oriented to person, oriented to place, oriented to time, patient oriented x3, moves all extremities, no focal motor deficits and CN's II-XI intact bilaterally Cranial nerves: Yes Equal, round and reactive pupils present Cognition (Neuro): normal cognition Extrem General: Yes full ROM, Yes no pedal edema and Yes no calf tenderness Psych Mental Status: mental status grossly normal Affect: normal affect Thought process: Normal thought process present Medications Administered Discontinued Medications Generic Name Dose Route Start Last Admin Trade Name Freq PRN Reason Stop Dose Admin Cyclobenzaprine HCl 10 mg 12/20/24 09:01 12/20/24 09:42 Cyclobenzaprine Hcl 10 Mg Tablet PO 12/20/24 09:02 10 mg ONCE ONE Administration Medical Decision Making Medical Decision Making [facility] Narrative: Patient is a 61-year-old male with history of melanoma with brain metastasis, prostate CA, transient afib/flutter, HTN, hypercholesterolemia presenting to the emergency department with complaint of joint pain. On exam patient is awake, A+Ox3, VS WNL, afebrile, normal neurological exam without focal deficits, physical exam findings as above. Given reported symptoms and physical exam findings, initial differential includes but is not limited to viral illness, electrolyte abnormality, tick borne illness, potential metastases given results of recent CT head. Labs notable for mild leukocytosis, slight hyponatremia, otherwise unremarkable. Case discussed with Dr. Smalls, on-call for heme-onc today, who feels that given extensive workup on 12/15, patient does not require additional testing at this time, recommends pain control for joint pain. States patient needs PET scan for ongoing evaluation. I disucssed with patient that it is possible his pain is due to metastases, also possible that his tick panel is showing a false negative. Recommend completing full course of doxycycline. Patient reports improvement in pain after Flexeril given in the ED. Dr. Smalls is in agreement with discharging patient home on this. Patient has PET scan rescheduled for Wednesday and was told he can have something small to eat when he takes his am meds at 4am that day. Return precautions discussed with patient at bedside. He is comfortable with discharge home. He verbalized understanding of and agreement with plan. Differential Diagnosis Differential Diagnoses: The differential diagnosis associated with the presentation includes As per [facility] Consult Healthcare Provider Management of the patient was discussed with: [employer] (Dr. Smalls) Lab Data [facility] Lab Attestation statement: I reviewed the patient's lab results. As per [facility] 12/20/24 05:20 12/20/24 05:20 Labs: Lab Results 12/20/24 Range/Units 05:20 WBC 13.1 H (4.8-10.8) X10*3/uL RBC 3.72 L (4.60-5.80) X10*6/uL Hgb 11.4 L (14.0-18.0) g/dl Hct 32.9 L (42.0-52.0) % MCV 88.4 (80.0-98.0) fL MCH 30.6 (27.0-33.0) pg MCHC 34.7 (31.0-36.0) g/dl RDW 14.9 (11.0-16.0) % Plt Count 245 (160-400) X10*3/uL MPV 8.7 L (9.4-12.4) fL Immature Gran % (Auto) 2.3 H (0.0-0.4) % Neut % (Auto) 76.5 H (45-73) % Lymph % (Auto) 10.8 L (20-40) % Robeson % (Auto) 10.1 (2-11) % Eos % (Auto) 0.1 (0-4) % Baso % (Auto) 0.2 (0-2) % Lymph # (Auto) 1.4 (1.2-4.9) X10*3/uL Robeson # (Auto) 1.3 H (0.1-1.2) X10*3/uL Eos # (Auto) 0.0 (0.0-0.4) X10*3/uL Baso # (Auto) 0.0 (0.0-0.2) X10*3/uL Abs Immat Gran (auto) 0.30 H (0.00-0.03) X10*3/uL Absolute Neuts (auto) 10.0 H (2.0-8.3) x10*3/uL Absolute Nucleated RBC 0.000 (0.0-0.012) X10*3/uL Nucleated RBC % (auto) 0.0 (0.0-0.2) /100WBC Sodium 132 L (135-145) mmol/L Potassium 4.3 (3.3-5.1) mmol/L Chloride 101 (96-108) mmol/L Carbon Dioxide 20 L (22-29) mmol/L Anion Gap 15 (12-20) BUN 20 H (9-16) mg/dL Creatinine 0.73 (0.5-1.4) mg/dL Estim Creat Clear Calc 114.1 Estimated GFR > 60 Random Glucose 105 (60-115) mg/dL Calcium 8.6 (8.4-10.2) mg/dL Total Bilirubin 0.3 (0.0-1.0) mg/dL AST 17 (5-37) U/L ALT 20 (0-40) U/L Alkaline Phosphatase 41 (39-117) U/L Total Protein 5.9 L (6.5-8.0) g/dL Albumin 3.9 (3.5-5.0) g/dL Influenza Type A (PCR) NEGATIVE (Negative) Influenza Type B (PCR) NEGATIVE (Negative) RSV RNA Qual (PCR) NEGATIVE (Negative) SARS-CoV-2 RNA (RT-PCR) NEGATIVE (Negative) External Record Review External record reviewed: Inpatient record, Office record and Outpatient record Prescription Management I considered prescription management with: Other Discharge Plan Discharge Clinical Impression: Arthralgia Qualifiers: Joint pain location: unspecified Qualified Code(s): M25.50 - Pain in unspecified joint Patient Disposition: Home, Self-Care Instructions: Arthralgia (ED) Additional Instructions: You were evaluated in the emergency department today for joint pain and your pain improved with medication given in the ED. We are sending a prescription of this medication to your pharmacy. You tested negative for Covid, flu, and RSV, and your labs were reassuring. We recommend that you complete the full course of doxycycline previously prescribed to you. Follow up with Dr. Rodriguez. Return to the emergency department if you develop worsening pain not controlled with medication, fever, chest pain or difficulty breathing, persistent vomiting, or any other new or concerning symptoms. Prescriptions: New cyclobenzaprine 10 mg tablet 10 mg PO TID PRN (Reason: muscle spasm) Qty: 14 0RF No Action enalapril maleate 10 mg tablet 10 mg PO DAILY Qty: 90 2RF metoprolol succinate 25 mg Tablet Extended Release 24 Hr 25 mg PO DAILY Qty: 90 0RF Protocol: Hold for SBP/HR < HOLD for SBP < : 90 HOLD for HR < : 60 omeprazole 20 mg capsule,delayed release(DR/EC) 20 mg PO DAILY@0630 Qty: 90 1RF encorafenib 75 mg Capsule 300 mg PO DAILY Qty: 120 3RF diphenhydramine HCl [Benadryl Allergy] 25 mg Tablet 25 mg PO DAILY PRN (Reason: Allergy Symptoms) Excedrin Migraine 250-250-65 mg Tablet 1 tab PO Q4-6H PRN (Reason: Headache) psyllium husk [Fiber (psyllium husk)] 0.4 gram Capsule 0.4 g PO BEDTIME sulfamethoxazole-trimethoprim [Bactrim DS] 800-160 mg tablet 1 tab PO Q48H Artificial Tears([id number]) 1-0.2-0.2 % Drops 2 drp ophthalmic-Right Q4H PRN (Reason: Eye pain/irritation) Qty: 30 0RF omega-3 fatty acids 1,000 mg capsule 1,000 mg PO DAILY ascorbic acid (vitamin C) 1,000 mg tablet 1 g PO DAILY Centrum 18-400 mg-mcg tablet 1 tab PO DAILY atorvastatin 10 mg tablet 10 mg PO BEDTIME Qty: 90 3RF Referrals: Jonathan Rodriguez MD [Physician, Hematology & Oncology] Print Language: [place]
--- NOTE | 2024-12-20 08:01 | PC.NURSE ---
Resumed care of patient, he is currently resting in bed with call crain within reach, awaiting to be seen by a provider. Pt was suppose to go for a PET scan but POC was in the 50s so they did not do it, pt reporting increased pain in all his joints at this time. Pt is a/ox4, speech clear.
[2024-12-20 10:00] VITALS: BP 134/70; PULSE 65; RESP 18; TEMP 36.6; O2SAT 98
--- NOTE | 2024-12-20 11:08 | MHC.HEMONC ---
Pt has appt with [facility] next Wednesday12/26/24 at 2pm.
[2024-12-20 11:15] VITALS: BP 134/70; PULSE 65; RESP 18; TEMP 36.6; O2SAT 98
== END 2024-12-20 11:16 | disposition home or self-care (01) ==
PROVIDERS: Emergency Provider Emergency Medicine; PCP Internal Medicine
DX: M79.10 Myalgia, unspecified site (principal); I10 Essential (primary) hypertension; Z03.818 Encounter for observation for suspected exposure to other biological agents ruled out; Z79.899 Other long term (current) drug therapy
CPT/HCPCS: 36415; 80053; 85025; 87637; 99283; 99284

== ENCOUNTER 2025-03-07 10:00 | Outpatient (REF) | payer MEDICARE, OTHER, SELFPAY ==
--- OUTSIDE RECORDS SUMMARY | 2024-06-26 08:10 | XMS_ITS ---
Author Organization [facility] Address [address] [place] [address] Care Team Providers Care Cold Press Operator Name Role Phone Raghu Contreras MD Primary Care Provider Estrella Ewing [facility] [phone] REASON FOR VISIT screening,hx polyps Encounters Encounter Location Date Provider Diagnosis [facility] [address] [place], [place] [id number] 06/26/2024 Estrella Mosqueda Plan Of Treatment No Information Progress Notes * ИВАН SHELBYDOB:1955 ([age] yo M)Acc No.[id number]:06/26/2024 COLON WITH MAC Patient: ИВАН PINTO Provider: Danial Mosqueda MD :1955 A ge:68 Y S ex:Male Date:06/26/2024 Address:[address] [place], [place] [id number] Pcp:Raghu Contreras MD Subjective: * Chief Complaints: * 1 . Screening,hx polyps. * Medical History: Objective: * Vitals: Assessment: Plan: * Treatment: * * The named appointment provid er may or may not be the originator of this progress note, and it is not deemed complete until electronically signed by the appointment provider. Sign off status: Pending * Provider: Danial Mosqueda MD Date: 0 06/26/2024 Generated for Joshi ng/Fajusticeg/eTransmitting on: 0 03/07/2025 12:13 PM EDT
--- OUTSIDE RECORDS SUMMARY | 2025-03-04 13:57 | XMS_ITS | Encounter Summary ---
Author Organization [facility] Address [address] [place] [id number] Phone Care Team Providers Care Looper Fixer Name Role Phone Raghu Contreras MD Primary Care Provider [phone] Vern Ospina MD Unavailable [phone] Reason for Referral * MRI/CAT Scan - Closed Specialty Diagnoses / Procedures Referred By Chris ulloa Referred To Contact Radiology Diagnoses Metastatic melanoma Procedures MRI Brain Vern Ospina MD Phone: tel: fax: mailto:[email or web address] Referral ID Status Reason Start Date Expiration Date Visits Re quested Visits Authorized [id number] Closed 02/26/2025 02/26/2026 1 1 Reason for Visit * MRI/CAT Scan - Closed Specialty Diagnoses / Procedures Referred By Chris ulloa Referred To Contact Radiology Diagnoses Metastatic melanoma Procedures MRI Brain Vern Ospina MD Phone: tel: fax: mailto:[email or web address] Referral ID Status Reason Start Date Expiration Date Visits Re quested Visits Authorized [id number] Closed 02/26/2025 02/26/2026 1 1 Encounter Details Date Type Department Care Team (Latest Contact Info) Description 03/04/2025 1:57 PM EDT - 03/04/2025 11:59 PM EDT Hospital Encounter [facility] [address] [place] [address] Vern Ospina MD [address] [place] [address] [email or web address] Arrived Discharge Disposition: Home or Self Care Social History Tobacco Use Types Packs/Day Years Used Date Smoking Tobacco: Never Passive Smoke Exposure: Never Smokeless Tobacco: Never Alcohol Use Standard Drinks/Week Comments Not Currently 0 (1 standard drink = 0.6 oz pur e alcohol) Education Answer Date Recorded Are you interested in more education? Not on dax e 10/09/2022 Are you concerned about learning? Not on file 10/09/2022 No 10/09/2022 No 10/09/2022 Food Answer Date Recorded Within the past 6 months we worried whether our food would run out before we got money to buy more. Never True 10/27/2024 Within the past 6 months the food we bought just didn't last and we didn't have enough money to get more. Never True Residential Stability Answer Date Recor ded What is your housing situation today? I have ashley sing 10/27/2024 How many times have you move d in the past 12 months? Zero (I did not move) 10/27/2024 Paying for Meds Answer Date Recorded Do you have trouble paying for medicines? No 10/27/2024 Paying Utility Bills Answer Date Record ed Do you have trouble paying your heating or elect ricity bill? No 10/27/2024 Transportation Answer Date Recorded Has the lack of transportati on kept you from medical appointments or from getting medications? No 10/27/2024 Digital Access Answer Date Recorded No 10/27/2024 Yes 10/27/2024 Do you have reliable internet access at home? Ye s 10/27/2024 Do you have a device (e.g., phone, tablet, computer) with a working camera? Yes 10/27/2024 Intimate Partner Violence Answer Date R ecorded Are you denied basic needs s uch as food, clothing, or medical care? No 12/15/2024 In the past 12 months have y ou been in a relationship with a person who hurts, threatens, or tries to control you? No 12/15/2024 Are you denied basic needs s uch as food, clothing, or medical care? No 12/15/2024 In the past 12 months have y ou been in a relationship with a person who hurts, threatens, or tries to control you? No 12/15/2024 Sex and Gender Information Value Date Recorded Sex Assigned at Male 08/15/2024 2:29 PM EST Legal Sex Male 9:53 PM EDT Gender Identity Male 08/15/2024 2:29 PM EST Sexual Orientation Straight 08/15/2024 2: 29 PM EST documented as of this encounter Medications at Time of Discharge predniSONE (DELTASONE) 5 MG tablet Take 15 mg by mouth daily. acetaminophen (TYLENOL) 500 MG tablet Take 500 mg by mouth every 6 (six) hours as needed for pain (specific location in comments). ascorbic acid, vitamin C, 500 mg Cap as directed Orally atorvastatin (LIPITOR) 10 MG tablet Take 10 mg by mouth daily. 05/20/2023 BRAFTOVI 75 mg capsule 12/21/2024 brimonidine (ALPHAGAN) 0.2 % ophthalmic solution INSTILL 1 DROP IN RIGHT EYE THREE TIMES DAILY 12/07/2024 diphenhydrAMINE (BENADRYL) 25 mg capsule Take 25 mg by mouth every 6 (six) hours as needed for allergies. enalapril (VASOTEC) 10 MG tablet Take 10 mg by mouth daily. 05/20/2023 hydroxypropyl methylcellulose (GENTEAL) 0.3 % Drop Place 2 drops into the right eye every 4 (four) hours as needed. ibuprofen (ADVIL,MOTRIN) 200 MG tablet Take 400 mg by mouth every 6 (six) hours as needed for pain (specific location in comments). omega 7-ymj-fbv-fish oil 1,000 (120-180) mg Cap Take 1 capsule by mouth daily. omeprazole (PRILOSEC) 20 MG capsule Take 1 capsule by mouth every morning. 09/01/2024 ondansetron (ZOFRAN) 4 MG tablet Take 4 mg by mouth daily. psyllium (KONSYL-D) powder Take 3.4 g by mouth daily. sulfamethoxazole-trim ethoprim (BACTRIM DS) 800-160 mg per tablet Take 1 tablet by mouth 3 (three) times a week. 10/13/2024 therapeutic multivitamin tablet Take 1 tablet by mouth daily. documented as of this encounter Plan of Treatment Upcoming Encounters Date Type Department Care Team (Late st Contact Info) Description 03/12/2025 9:00 AM EDT Telemedicine [facility] [address] [facility], 7th Floor, [address] [place] [address] Vern Ospina MD [address] [facility] [address] [place] [address] [email or web address] 04/23/2025 2:30 PM EST Office Visit [facility] [address] [facility] 9th [place] [address] Josiah Orta MD [address] [place] [address] [email or web address] Keaton Jon MD [address] [place] [address] [email or web address] documented as of this encounter Procedures Procedure Name Priority Date/Time Associated Diagnosis Comments MRI BRAIN WITH AND WITHOUT CONTRAST Routine 03/04/2025 3:52 PM EDT Metastatic melanoma documented in this encounter Results * MRI BRAIN WITH AND WITHOUT CONTRAST (03/04/2025 3:52 PM EDT) Anatomical Region Laterality Modality Head Magnetic Resonan ce 03/05/2025 3:13 PM EDT Impressions 03/05/2025 3:36 PM EDT 1. Interval decrease in the size and enhancement of multiple enhancing lesions, with decreased vasogenic edema, likely due to treatment. 2. Possible new focus of enhancement in the right caudate nucleus head. Narrative 03/05/2025 3:36 PM EDT MRI BRAIN WITH AND WITHOUT CONTRAST Referring clinician's provided indication for this examination in [facility]: * Melanoma, assess treatment response TECHNIQUE: MRI BRAIN WITH AND WITHOUT CONTRAST Multi-sequence, multi-planar MRI of the brain was performed before and after intravenous contrast. COMPARISON: Brain MRI January 10, 2025. FINDINGS: Brain Parenchyma: Since MRI of January 10, 2025, please the following findings: -T1 hyperintense hemorrhagic lesion centered in the right superior frontal gyrus has decreased in size now measuring up to 7 mm from 1.8 cm on previous exam. There is mild increased adjacent edema. -Slight enhancing lesion previously seen in the left superior frontal gyrus, not well seen in this exam. -Right middle frontal gyrus enhancing lesion measuring 8 x 9 mm from 6 x 9 mm on previous exam. The adjacent T2 signal hyperintensity has decreased. -Enhancing 3 to 4 mm right parietal cortical lesion (10:127), with mild adjacent STIR hyperintense signal, grossly stable. - Decreased size and enhancement the right middle frontal gyrus with susceptibility, (10:132), likely due to treatment effect. -An additional right parietal lesion with decreased enhancement and associated susceptibility, smaller in size. -Right inferior frontal gyrus slightly heterogeneous enhancing lesion with susceptibility (10, 118), decreased in size measuring 10 x 6 mm from 12 x 8 mm. Decreased adjacent T2 hyperintense signal/edema. -Interval decrease in the size or lesions noted on the right frontal operculum (10:98), right basal ganglia, with associated susceptibility likely due to treatment. -There is a possible new focus of enhancement in the right caudate nucleus head (10:107 measuring 3 mm. Multiple areas with decreased vasogenic edema as discussed above. Other cortical foci with T2 signal hyperintensity are grossly stable. No new area with signal abnormality. No acute infarct or new hemorrhage. No mass effect. Ventricular System and Extra-Axial Spaces: No hydrocephalus or midline shift. No extra-axial fluid collection. Extracranial Structures: Expected arterial flow signal is observed at the skull base. No orbital abnormality. The paranasal sinuses and mastoids are grossly clear. The small lymph nodes on the neck posteriorly with a left suboccipital lymph node measuring 8 mm, stable. Procedure Note Stephenie Davalos MD - 03/05/2025 MRI BRAIN WITH AND WITHOUT CONTRAST Referring clinician's provided indication for this examination in [facility]: *Melanoma, assess treatment response TECHNIQUE: MRI BRAIN WITH AND WITHOUT CONTRAST Multi-sequence, multi-planar MRI of the brain was performed before andafter intravenous contrast. COMPARISON: Brain MRI January 10, 2025. FINDINGS: Brain Parenchyma: Since MRI of January 10, 2025, please the followingfindings: -T1 hyperintense hemorrhagic lesion centered in the right superior frontalgyrus has decreased in size now measuring up to 7 mm from 1.8 cm onprevious exam. There is mild increased adjacent edema. -Slight enhancing lesion previously seen in the left superior frontalgyrus, not well seen in this exam. -Right middle frontal gyrus enhancing lesion measuring 8 x 9 mm from 6 x 9mm on previous exam. The adjacent T2 signal hyperintensity hasdecreased. -Enhancing 3 to 4 mm right parietal cortical lesion (10:127), with mildadjacent STIR hyperintense signal, grossly stable. - Decreased size and enhancement the right middle frontal gyrus withsusceptibility, (10:132), likely due to treatment effect. -An additional right parietal lesion with decreased enhancement andassociated susceptibility, smaller in size. -Right inferior frontal gyrus slightly heterogeneous enhancing lesion withsusceptibility (10, 118), decreased in size measuring 10 x 6 mm from 12 x8 mm. Decreased adjacent T2 hyperintense signal/edema. -Interval decrease in the size or lesions noted on the right frontaloperculum (10:98), right basal ganglia, with associated susceptibilitylikely due to treatment. -There is a possible new focus of enhancement in the right caudate nucleushead (10:107 measuring 3 mm. Multiple areas with decreased vasogenic edema as discussed above. Othercortical foci with T2 signal hyperintensity are grossly stable. No newarea with signal abnormality. No acute infarct or new hemorrhage. No masseffect. Ventricular System and Extra-Axial Spaces: No hydrocephalus or midlineshift. No extra-axial fluid collection. Extracranial Structures: Expected arterial flow signal is observed at theskull base. No orbital abnormality. The paranasal sinuses and mastoidsare grossly clear. The small lymph nodes on the neck posteriorly with aleft suboccipital lymph node measuring 8 mm, stable. IMPRESSION: 1. Interval decrease in the size and enhancement of multiple enhancinglesions, with decreased vasogenic edema, likely due to treatment. 2. Possible new focus of enhancement in the right caudate nucleus head. Vern Ospina MD [facility] [place] HEAD/NECK Final Result documented in this encounter Visit Diagnoses Diagnosis Metastatic melanoma Melanoma of skin, site unspecified documented in this encounter Administered Medications Inactive Administered Medications - up to 3 most recent administrations Medication Order MAR Action Action Date Dose Rate Site gadoterate meglumine (DOTAREM/CLARISCAN) 0.5 mmol/mL (376.9 mg/mL) injection 19 mL 19 mL (rounded from 19.06 mL = 0.1 mmol/kg 95.3 kg), Intravenous, Once as needed, pre procedure/treatment, Starting on 03/04/25 at 1406, For 1 dose, Procedural Contrast/Med Active Now Given 03/04/2025 3:19 PM EDT 19 mL Right Arm documented in this encounter Care Teams Looper Fixer Relationship Specialty Start Date End Date Po, Raghu Perea MD [address] [place] [address] [place] [phone] PCP - General Internal Medicine 08/15/24 Vern Ospina MD [address] [place] [address] [email or web address] Hematology and Oncology 08/16/24 documented as of this encounter Additional Source Comments The information contained in this document represents components of the legal health record. It is not the complete legal health record.[facility]
[2025-03-07 10:28] LABS: MANUAL DIFF FLAG NO
[2025-03-07 11:04] LABS: Appearance Urine Clear; Glucose Urine UA Negative (Negative); PH 6.0 (5.0-9.0); Specific Gravity - Urine <= 1.005 (1.005-1.025)
[2025-03-07 11:10] LABS: Hematocrit 36.9 % (42.0-52.0); Hemoglobin 12.3 g/dl (14.0-18.0); Imm Gran Abs Auto 0.12 X10*3/uL (0.00-0.03); Imm Gran Pct Auto 1.1 % (0.0-0.4); Lymphocytes Absolute Auto 2.1 X10*3/uL (1.2-4.9); Mean Corpuscular HGB Conc 33.3 g/dl (31.0-36.0); Mean Corpuscular Hemoglobin 29.3 pg (27.0-33.0); Mean Corpuscular Volume 87.9 fL (80.0-98.0); NRBC Abs Auto 0.000 X10*3/uL (0.0-0.012); NRBC Pct Auto 0.0 /100WBC (0.0-0.2); Platelet Count 243 X10*3/uL (160-400); Red Blood Count 4.20 X10*6/uL (4.60-5.80); White Blood Count 10.6 X10*3/uL (4.8-10.8)
[2025-03-07 12:13] LABS: Alanine Aminotransferase 16 U/L (0-40); Albumin Level 4.3 g/dL (3.5-5.0); Alkaline Phosphatase 41 U/L (39-117); Anion Gap 14 (12-20); Aspartate Amino Transferase 17 U/L (5-37); Blood Urea Nitrogen 8 mg/dL (9-16); Calcium 9.3 mg/dL (8.4-10.2); Carbon Dioxide 27 mmol/L (22-29); Chloride 104 mmol/L (96-108); Cholesterol 193 mg/dL (<200); Estimated Glomerular Filt Rate > 60; HDL Cholesterol 49 mg/dL (>40); Potassium 3.7 mmol/L (3.3-5.1); Sodium 141 mmol/L (135-145); Total Protein 6.6 g/dL (6.5-8.0); Triglycerides 233 mg/dL (<150)
--- OUTSIDE RECORDS SUMMARY | 2025-03-07 12:13 | XMS_ITS | Encounter Summary ---
Author Organization [facility] Address [address] [facility] [address] [place] [address] Phone Care Team Providers Care Senior Government Program Analyst Name Role Phone Raghu Contreras MD Primary Care Provider [phone] Vern Ospina MD Unavailable [phone] Encounter Details Date Type Department Care Team (Late st Contact Info) Description 02/26/2025 Procedure Pass [facility] [address] [place] [address] Social History Tobacco Use Types Packs/Day Years [...] PM EST documented as of this encounter Plan of Treatment Upcoming Encounters Date Type Department Care Team (Late st Contact Info) Description 03/12/2025 9:00 AM EDT Telemedicine [facility] [address] [facility], 7th Floor, [address] [place] [address] Vern Ospina MD [address] [facility] 9[place] [address] [email or web address] 04/23/2025 2:30 PM EST Office Visit [facility] [address] 9th [place] [address] Josiah Orta MD [address] [place] [address] [email or web address] Keaton Jon MD [address] [place] [id number] [email or web address] documented as of this encounter Visit Diagnoses Not on filedocumented in this encounter Care Teams Senior Government Program Analyst Relationship Specialty Start Date End Date Ben, Raghu Perea MD [address] [place] [address] [place] [phone] PCP - General Internal Medicine 08/15/24 Vern Ospina MD [address] [place] [address] [address] [address] [email or web address] Hematology and Oncology 08/16/24 documented as of this encounter Additional Source Comments The information contained in this document represents components of the legal health record. It is not the complete legal health record.[facility]
--- OUTSIDE RECORDS SUMMARY | 2025-03-07 12:13 | XMS_ITS | Encounter Summary ---
Author Organization [facility] Address [address] [place] [address] Phone Care Team Providers Care Bus Girl Name Role Phone Raghu Contreras MD Primary Care Provider [phone] Vern Ospina MD Unavailable [phone] Encounter Details Date Type Department Care Team (Late st Contact Info) Description 02/23/2025 Orders Only [facility] [address] [facility], 7th Floor, [address] [place] [address] Provider, MD Genna [facility] [place] [address] Social History Tobacco Use Types Packs/Day Years [...] Info) Description 03/12/2025 9:00 AM EDT Telemedicine [facility] [address] [facility], 7th Floor, [address] [place] [address] Vern Ospina MD [address] [facility] [address] [place] [address] [email or web address] 04/23/2025 2:30 PM EST Office Visit [facility] [address], [place] [address] Josiah Orta MD [address] [place] [address] [email or web address] Keaton Jon MD [address] [place] [address] [email or web address] documented as of this encounter Procedures Procedure Name Priority Date/Time Associated Diagnosis Comments OUTSIDE IMAGING Routine 02/23/2025 8:12 AM EDT documented in this encounter Results * Outside Imaging Report Only (02/23/2025 8:12 AM EDT) us Historical Provider MD SHANE XR CHEST Final Res ult documented in this encounter Visit Diagnoses Not on filedocumented in this encounter Care Teams Bus Girl Relationship Specialty Start Date End Date Ben, Raghu Perea MD [address] [place] [address] [place] [phone] PCP - General Internal Medicine 08/15/24 Vern Ospina MD [address] [facility] [address] [place] [address] [email or web address] Hematology and Oncology 08/16/24 documented as of this encounter Additional Source Comments The information contained in this document represents components of the legal health record. It is not the complete legal health record.[facility]
--- OUTSIDE RECORDS SUMMARY | 2025-03-07 12:13 | XMS_ITS | Encounter Summary ---
Author Organization [facility] Address [address] [place] [address] Phone Care Team Providers Care Cloth Neutralizer Name Role Phone Raghu Contreras MD Primary Care Provider [phone] Vern Ospina MD Unavailable Encounter Details Date Type Department Care Team (Late st Contact Info) Description 02/26/2025 Orders Only [facility] [address] [facility], 7th Floor, [address] [place] [address] Vern Ospina MD [address] [facility] [address] [place] [address] [email or web address] Social History Tobacco Use Types Packs/Day Years [...] enough money to get more. Never True 05/16/202 5 Residential Stability Answer Date Recor ded What is your housing situation today? I have ashley mckeon 10/27/2024 How many times have you move [...] Info) Description 03/12/2025 9:00 AM EDT Telemedicine [facility] [address] [facility], 7th Floor, [address] [place] [address] Vern Ospina MD [address] [facility] [address] [address] [place] [address] [email or web address] 04/23/2025 2:30 PM EST Office Visit [facility] [address] [facility] 9th [place] [address] Josiah Orta MD [address] [place] [address] [email or web address] Keaton Jon MD [address] [place] [address] [email or web address] documented as of this encounter Visit Diagnoses Not on filedocumented in this encounter Care Teams Cloth Neutralizer Relationship Specialty Start Date End Date Ben, Raghu Perea MD [address] [place] [address] [place] [phone] PCP - General Internal Medicine 08/15/24 Vern Ospina MD [address] [place] [address] [address] [place] [address] [email or web address] Hematology and Oncology 08/16/24 documented as of this encounter Additional Source Comments The information contained in this document represents components of the legal health record. It is not the complete legal health record.[facility]
--- OUTSIDE RECORDS SUMMARY | 2025-03-07 12:13 | XMS_ITS | Clinical Summary ---
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 05/20/20 23 Active enalapril (VASOTEC) 10 MG tablet Take 10 mg by mouth daily. 05/20/20 23 Active ondansetron (ZOFRAN) 4 MG tablet Take 4 mg by mouth daily. Active omega 1-vtv-yaq-fish oil 1,000 (120-180) mg Cap Take 1 capsule by mouth daily. Active hydroxypropyl methylcellulose (GENTEAL) 0.3 % Drop Place 2 drops into the right eye every 4 (four) hours as needed. Active ascorbic acid, vitamin C, 500 mg Cap as directed Orally Active omeprazole (PRILOSEC) 20 MG capsule Take 1 capsule by mouth every morning. 09/02/19 25 Active sulfamethoxazole-tr imethoprim (BACTRIM DS) 800-160 mg per tablet Take 1 tablet by mouth 3 (three) times a week. 10/14/19 25 Active therapeutic multivitamin tablet Take 1 tablet by mouth daily. Active psyllium (KONSYL-D) powder Take 3.4 g by mouth daily. Active diphenhydrAMINE (BENADRYL) 25 mg capsule Take 25 mg by mouth every 6 (six) hours as needed for allergies. Active BRAFTOVI 75 mg capsule 12/22/19 25 Active brimonidine (ALPHAGAN) 0.2 % ophthalmic solution INSTILL 1 DROP IN RIGHT EYE THREE TIMES DAILY 12/08/19 25 Active acetaminophen (TYLENOL) 500 MG tablet Take 500 mg by mouth every 6 (six) hours as needed for pain (specific location in comments). Active ibuprofen (ADVIL,MOTRIN) 200 MG tablet Take 400 mg by mouth every 6 (six) hours as needed for pain (specific location in comments). Active predniSONE (DELTASONE) 5 MG tablet Take 15 mg by mouth daily. Active metoprolol succinate (TOPROL-XL) 25 MG 24 hr tablet Take 1 tablet by mouth every morning. 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 Vision loss 10/27/2024 Optic neuritis, right 10/26/2024 Metastatic melanoma 08/17/2024 Cancer Staging:Clinical stage from 12/27/2024:Stage IV(rcT0, cNX, pM1d) - Unsigned Encounters Date Type Department Care Team Description 03/04/2025 1:57 PM EDT - 03/04/2025 11:59 PM EDT Hospital Encounter [address] [address] Vern Ospina MD Arrived Discharge Disposition: Home or Self Care 02/26/2025 Procedure Pass [address] [address] 02/26/2025 Orders Only [facility] [address] [facility], [address] Floor, [address] [place] [address] Vern Ospina MD 02/23/2025 11:40 AM EDT Telemedicine [facility] [address], [address] Floor, [address] [place] [address] Vern Ospina MD Metastatic melanoma (Primary Dx) 02/23/2025 Orders Only [facility] [address] [place] [address], 7th Floor, [address] [place] [address] ProviderGenna MD 01/17/2025 3:20 PM EDT Telemedicine [facility] [address] [place] [address], 7th Floor, [address] [place] [address] Vern Ospina MD Metastatic melanoma (Primary Dx) 01/17/2025 11:00 AM EDT Office Visit [facility] Rad Onc [address] [place] [phone] Leo Chaudhary MD, MSc Metastasis to brain (Primary Dx); Metastatic melanoma 01/17/2025 Telephone [facility] Rad Onc [address] [place] [phone] Leo Chaudhary MD, MSc PreAut 01/17/2025 Documentation [facility] Onc [address] [place] [address] Tiffanie Anaya MA 01/10/2025 8:08 AM EDT - 01/10/2025 11:59 PM EDT Hospital Encounter [facility] [address] [place] [address] Leo Chaudhary MD, MSc Discharge Disposition: Home or Self Care 01/01/2025 3:00 PM EDT Office Visit [place] [address] [place] [address] Josiah Orta MD Cestari, Dean M, MD Vision loss (Primary Dx); Metastatic melanoma; Optic neuropathy, right; Optic neuritis, right 01/01/2025 Ancillary Orders [facility],Outside Imaging [address] [place] [address] Unknown, Gosia, 12/27/2024 1:40 PM EDT Office Visit [facility] [address] [place] [address], 7th Floor, [address] [place] [address] Vern Ospina MD Metastatic melanoma (Primary Dx) 12/26/2024 2:00 PM EDT Office Visit [facility] Rad Onc [address] [place] [address] Leo Chaudhary MD, MSc Metastasis to brain (Primary Dx); Metastatic melanoma; Optic neuritis, right; Vision loss 12/26/2024 Procedure Pass [facility], Mri - [facility] [address] [place] [address] 12/15/2024 8:04 AM EDT - 12/15/2024 5:03 PM EDT Emergency [facility] Emergency [address] [place] [address] Salbador Godinez MD Discharge Disposition: Home or Self Care 12/15/2024 Procedure Pass [facility], Ct Scan - [address] [address] 12/14/2024 - 12/14/2024 11:59 PM EDT Hospital Encounter [facility],Outside Imaging [address] [place] [address] Unknown, Unknown, MD Discharge Disposition: Home or Self Care from Last 3 Months Family History Medical History Relation Comments Prostate cancer Father Bladder Cancer Mother Relation Status Comments Father Mother Social History Tobacco Use Types Packs/Day Years Used Date Smoking Tobacco: Never Passive Smoke Exposure: Never Smokeless Tobacco: Never Tobacco Cessation:Counseling Given: Not Answered Alcohol Use Standard Drinks/Week Comments Not Currently [...] Orientation Straight 08/15/2024 2: 29 PM EST Last Filed Vital Signs Vital Sign Reading Time Taken Comments Blood Pressure 124/77 12/27/2024 1:40 PM EDT Pulse 76 12/27/2024 1:40 PM EDT Temperature 37 C (98.6 F) 12/27/2024 1:40 PM EDT Respiratory Rate 16 12/27/2024 1:40 PM EDT Oxygen Saturation 98% 12/27/2024 1:40 PM EDT Inhaled Oxygen Concentration - - Weight 95.3 kg (210 lb) 03/02/2025 5:10 PM EDT Height 177.8 cm (5' 10 ) 03/02/2025 5:10 PM EDT Body Mass Index 30.13 03/02/2025 5:10 PM EDT Plan of Treatment Upcoming Encounters Date Type Department Care Team (Late st Contact Info) Description 03/12/2025 9:00 AM EDT Telemedicine [facility] [address] [facility], 7th Floor, [address] [place] [address] Vern Ospina MD [address] [place] [address] [email or web address] 04/23/2025 2:30 PM EST Office Visit [facility] [address] [facility] [address]th [place] [address] Josiah Orta MD [address] [place] [address] [email or web address] Keaton Jon MD [address] [place] [address] [email or web address] Maintenance Due Date Last Done Comments LIPID PANEL 1956 DEPRESSION SCREENING 1968 HEPATITIS C SCREENING 1974 COLOGUARD 2001 COLONOSCOPY 2001 COLORECTAL CANCER SCREENING 2001 FIT TEST 2001 FOBT 2001 SIGMOIDOSCOPY 2001 VIRTUAL COLONOSCOPY 2001 INFLUENZA VACCINE (#1) 2025 , 03/09/2023, 02/13/2022, Additional history exists COVID-19 VACCINE ( season) 2025 02/25/2024, 03/05/2023, 04/16/2022, Additional history exists CREATININE LEVEL 12/15/2025 12/15/2024, , 10/26/2024, Additional history exists POTASSIUM LEVEL 12/15/2025 12/15/2024, 10/12, 10/26/2024, Additional history exists SCREENING FOR DIABETES 12/16/2027 12/15/2024 Adult Td,Tdap Booster 02/26/2028 02/25/2018 ZOSTER VACCINES Completed 03/05/2019, 12/13, 12/18/2016 PNEUMOCOCCAL VACCINES (50+ years) Completed 02/13/2022 RSV VACCINE Completed 03/05/2023 SMOKING STATUS SCREENING (Once After 26 Yrs) Completed 12/26/2024 HEPATITIS A VACCINES Aged Out No long er eligible based on patient's age to complete this topic HIB VACCINES Aged Out No longer eligi ble based on patient's age to complete this topic MENINGOCOCCAL VACCINES (ACWY) Aged Out No longer eligible based on patient's age to complete this topic MENINGOCOCCAL VACCINES (B) Aged Out N o longer eligible based on patient's age to complete this topic Medical Devices Not on file Procedures Procedure Name Priority Date/Time Associated Diagnosis Comments MRI BRAIN WITH AND WITHOUT CONTRAST Routine 03/04/2025 3:52 PM EDT Metastatic melanoma OUTSIDE IMAGING Routine 02/23/2025 8:12 AM EDT MRI BRAIN (STEREOTACTIC) WITH AND WITHOUT CONTRAST Urgent/patient waiting 01/10/2025 9:37 AM EDT Metastasis to brain ROBERT VISUAL FIELD - OS - LEFT EYE Routine 01/01/2025 3:[address]T Vision loss CT HEAD WITHOUT CONTRAST Routine 12/15/2024 1:55 PM EDT LYME SCREEN WITH REFLEX TO WESTERN BLOT, BLOOD STAT 12/15/2024 11:53 AM EDT URINALYSIS W/REFLEX URINE CULTURE STAT 12/15/2024 11:52 AM EDT BABESIA SEROLOGY STAT 12/15/2024 11:4 8 AM EDT BABESIA SPECIES PCR STAT 12/15/2024 1 1:48 AM EDT MALARIA/BABESIA EXAM STAT 12/15/2024 11:48 AM EDT Ehrlichia/anaplasma PCR STAT 12/15/2024 11:48 AM EDT BLOOD CULTURE, ROUTINE STAT 12/15/2024 11:48 AM EDT BLOOD CULTURE, ROUTINE STAT 12/15/2024 11:48 AM EDT C-REACTIVE PROTEIN STAT 12/15/2024 10 :08 AM EDT SEDIMENTATION RATE (ESR) STAT 12/15/2024 10:08 AM EDT TROPONIN STAT 12/15/2024 10:08 AM EDT NT-PROBNP STAT 12/15/2024 9:06 AM EDT TROPONIN STAT 12/15/2024 9:06 AM EDT BASIC METABOLIC PANEL STAT 12/15/2024 9:06 AM EDT CBC AND DIFFERENTIAL STAT 12/15/2024 9:06 AM EDT XR CHEST PA AND LATERAL 2 VIEWS Routine 12/15/2024 8:43 AM EDT COVID PANDEMIC RESPIRATORY VIRAL ORDER (PRO) STAT 12/15/2024 8:37 AM EDT ECG 12-LEAD STAT 12/15/2024 8:32 AM EDT ECG 12-LEAD STAT 12/15/2024 6:[address] CHEST OUTSIDE (NO INTERPRETATION) Routine 12/14/2024 12:00 AM EDT from Last 3 Months Results * MRI BRAIN WITH AND WITHOUT [...] clinician's provided indication for this examination in Epic: * Melanoma, assess treatment response TECHNIQUE: MRI [...] measuring 8 mm, stable. Procedure Note Stephenie Davalso MD - 03/05/2025 MRI BRAIN WITH AND WITHOUT CONTRAST Referring clinician's provided indication for this examination in Epic: *Melanoma, assess treatment response TECHNIQUE: MRI BRAIN [...] in the right caudate nucleus head. Vern SHANE MR HEAD/NECK Final Result * Outside Imaging Report Only (02/23/2025 8:12 AM EDT) us Historical Provider MD SHANE XR CHEST Final Res ult * MRI BRAIN (STEREOTACTIC) WITH AND WITHOUT CONTRAST (01/10/2025 9:37 AM EDT) Anatomical Region Laterality Modality Head Magnetic Resonan ce 01/10/2025 9:39 AM EDT Impressions 01/10/2025 9:56 AM EDT 1. Multiple new hemorrhagic metastases compared to prior MRI from 10/26/24, the largest in the right inferior frontal gyrus. These lesions show corresponding blood product on recent CT. There is no clear progression of metastatic disease between the CT (12/15/2024) and today's study. 2. Decreased size of the previously seen hematomas in the right superior frontal gyrus and right parietal lobe. Narrative 01/10/2025 9:56 AM EDT MRI BRAIN (STEREOTACTIC) WITH AND WITHOUT CONTRAST Referring clinician's provided indication for this examination in [facility]: * Brain mass or lesion; Metastatic melanoma to brain TECHNIQUE: MRI BRAIN (STEREOTACTIC) WITH AND WITHOUT CONTRAST Multi-sequence, multi-planar MRI of the brain was performed before and after intravenous contrast. COMPARISON: CT HEAD WITHOUT CONTRAST FINDINGS: MRI BRAIN: Evaluation of intracranial metastases and intracranial hemorrhages: * 1.8 cm x 1.3 cm heterogeneously T1 hyperintense hematoma within the anterior right superior frontal gyrus, seen on recent CT head and mildly decreased in size since that study. * 1.2 cm x 0.8 cm heterogeneous enhancing lesion in the right inferior frontal gyrus (series 10 image 116), corresponding to a hematoma seen on recent CT. This is markedly increased in size since prior MRI where it measured 0.3 cm. * 0.8 cm hematoma with associated surrounding enhancement in the right frontal operculum (series 4 image 93). The hematoma was present on prior CT head. However, no corresponding metastatic lesion was seen on the recent MRI. * 0.4 cm subtle focus of enhancement in the right basal ganglia, without corresponding enhancement on prior MRI or corresponding hemorrhage on prior CT. This may reflect subacute infarct versus metastasis. * 0.6 cm ill-defined enhancing lesion in the left anterior superior frontal gyrus (series 7 image 144), corresponding to hematoma seen on prior CT. No enhancing lesion is identified in this area on prior MRI. * 0.4 cm T1 hyperintense hematoma surrounding enhancement in the right parietal lobe (series 7 image 124). The hematoma is decreased in size since prior CT. No enhancing lesions identified in this region of prior MRI. * 0.6 cm x 0.5 cm ill-defined area of enhancement in the lateral left temporal lobe. It is increased in size but decreased in enhancement intensity compared to prior MRI (series 10 image 77 of current study). * 0.8 cm x 0.6 cm ill-defined enhancing lesion within the right middle frontal gyrus (series 7 image 149). No enhancing lesion is identified in this area on prior MRI. There is subtle hypoattenuation reflecting blood product on recent CT. * Additional small focus of susceptibility artifact likely represent treated metastases. Brain Parenchyma: There is no decreased diffusion to indicate an acute infarct. Ventricular System and Extra-Axial Spaces: The ventricles, sulci and cisterns are age-appropriate. Extracranial Structures: The visualized paranasal sinuses appear clear. The mastoid air cells appear clear. Procedure Note Ja Lagunas MD - 01/10/2025 MRI BRAIN (STEREOTACTIC) WITH AND WITHOUT CONTRAST Referring clinician's provided indication for this examination in Epic: *Brain mass or lesion; Metastatic melanoma to brain TECHNIQUE: MRI BRAIN (STEREOTACTIC) WITH AND WITHOUT CONTRAST Multi-sequence, multi-planar MRI of the brain was performed before andafter intravenous contrast. COMPARISON: CT HEAD WITHOUT CONTRAST FINDINGS: MRI BRAIN: Evaluation of intracranial metastases and intracranial hemorrhages: * 1.8 cm x 1.3 cm heterogeneously T1 hyperintense hematoma within theanterior right superior frontal gyrus, seen on recent CT head and mildlydecreased in size since that study. * 1.2 cm x 0.8 cm heterogeneous enhancing lesion in the right inferiorfrontal gyrus (series 10 image 116), corresponding to a hematoma seen onrecent CT. This is markedly increased in size since prior MRI where itmeasured 0.3 cm. * 0.8 cm hematoma with associated surrounding enhancement in the rightfrontal operculum (series 4 image 93). The hematoma was present on priorCT head. However, no corresponding metastatic lesion was seen on therecent MRI. * 0.4 cm subtle focus of enhancement in the right basal ganglia, withoutcorresponding enhancement on prior MRI or corresponding hemorrhage onprior CT. This may reflect subacute infarct versus metastasis. * 0.6 cm ill-defined enhancing lesion in the left anterior superiorfrontal gyrus (series 7 image 144), corresponding to hematoma seen onprior CT. No enhancing lesion is identified in this area on prior MRI. * 0.4 cm T1 hyperintense hematoma surrounding enhancement in the rightparietal lobe (series 7 image 124). The hematoma is decreased in sizesince prior CT. No enhancing lesions identified in this region of priorMRI. * 0.6 cm x 0.5 cm ill-defined area of enhancement in the lateral lefttemporal lobe. It is increased in size but decreased in enhancementintensity compared to prior MRI (series 10 image 77 of current study). * 0.8 cm x 0.6 cm ill-defined enhancing lesion within the right middlefrontal gyrus (series 7 image 149). No enhancing lesion is identified inthis area on prior MRI. There is subtle hypoattenuation reflecting bloodproduct on recent CT. * Additional small focus of susceptibility artifact likely representtreated metastases. Brain Parenchyma: There is no decreased diffusion to indicate an acuteinfarct. Ventricular System and Extra-Axial Spaces: The ventricles, sulci andcisterns are age-appropriate. Extracranial Structures: The visualized paranasal sinuses appear clear.The mastoid air cells appear clear. IMPRESSION: 1. Multiple new hemorrhagic metastases compared to prior MRI from10/26/24, the largest in the right inferior frontal gyrus. These lesionsshow corresponding blood product on recent CT. There is no clearprogression of metastatic disease between the CT (12/15/2024) and today'sstudy. 2. Decreased size of the previously seen hematomas in the right superiorfrontal gyrus and right parietal lobe. Leo Chaudhary MD, MSc IMG MR HEAD/NECK Final Result * Robert Visual Field - OS - Left Eye (01/01/2025 3:03 PM EDT) HVF Mean Deviation (OS) - Left Eye -0.26 dB [facility] Anatomical Region Laterality Modality Head Visual Field Narrative 01/05/2025 2:09 PM EDT Mean Deviation: -0.26 dB dB. Foveal threshold: Normal. Findings: Normal. Keaton Jon MD OPHTHALMOLOGY IMAGING Final Re sult * CT HEAD WITHOUT CONTRAST (12/15/2024 1:55 PM EDT) MGB IMG FOLDER AND NOTCHER COMMENT Multiple hemorrhagic metastases, increased from prior. [facility] Anatomical Region Laterality Modality Head Computed Tomogra phy 12/15/2024 1:57 PM EDT Impressions 12/15/2024 2:44 PM EDT Increased hemorrhagic metastases throughout the cerebrum with surrounding vasogenic edema. No midline shift or evidence of herniation. A clinically significant result was initiated on 12/15/2024 2:07 PM, Message ID [id number]. ATTESTATION: I, Kim Goodman as teaching physician, have reviewed the images for this case and if necessary edited the report originally created by Clara Milligan. Narrative 12/15/2024 2:[address] HEAD WITHOUT CONTRAST Referring clinician's provided indication for this examination in Epic: * Headache, chronic, new features or increased frequency TECHNIQUE: CT of the head was performed without intravenous contrast using tailored dose modulation techniques. Images were reconstructed in the axial, coronal, and sagittal planes. COMPARISON: MRI BRAIN WITH AND WITHOUT CONTRAST ; CT HEAD OUTSIDE (NO INTERPRETATION) FINDINGS: Brain Parenchyma: Multiple hemorrhagic metastases throughout the cerebrum, right greater than left, with surrounding vasogenic edema and localized mass effect, increased in size and number from the MRI study. The largest lesion is in the right frontal lobe, with the hemorrhagic portion measuring 2.4 x 1.7 cm (3:42). Ventricular System and Extra-Axial Spaces: No extra-axial fluid collections. Basal cisterns are patent. No hydrocephalus. Osseous and Extracranial Structures: No calvarial fracture or significant soft tissue hematoma. No significant paranasal sinus disease. No orbital abnormality. Procedure Note Kim Luu MD - 12/15/2024 CT HEAD WITHOUT CONTRAST Referring clinician's provided indication for this examination in Epic: *Headache, chronic, new features or increased frequency TECHNIQUE: CT of the head was performed without intravenous contrast usingtailored dose modulation techniques. Images were reconstructed in theaxial, coronal, and sagittal planes. COMPARISON: MRI BRAIN WITH AND WITHOUT CONTRAST ; CT HEADOUTSIDE (NO INTERPRETATION) FINDINGS: Brain Parenchyma: Multiple hemorrhagic metastases throughout the cerebrum,right greater than left, with surrounding vasogenic edema and localizedmass effect, increased in size and number from the MRI study. The largestlesion is in the right frontal lobe, with the hemorrhagic portionmeasuring 2.4 x 1.7 cm (3:42). Ventricular System and Extra-Axial Spaces: No extra-axial fluidcollections. Basal cisterns are patent. No hydrocephalus. Osseous and Extracranial Structures: No calvarial fracture or significantsoft tissue hematoma. No significant paranasal sinus disease. No orbitalabnormality. IMPRESSION: Increased hemorrhagic metastases throughout the cerebrum with surroundingvasogenic edema. No midline shift or evidence of herniation. A clinically significant result was initiated on 12/15/2024 2:07 PM, MessageID [id number]. ATTESTATION: I, Kim Goodman as teaching physician, have reviewed theimages for this case and if necessary edited the report originally createdby Clara Milligan. Ronak Alvarenga PA-C IMG CT HEAD/NECK Final Result * Lyme Screen with Reflex to Immunoblot, Blood (12/15/2024 11:53 AM EDT) Lyme AB IgG Negative Negative [facility] Lyme AB IgM Negative Negative [facility] Blood 12/15/2024 11:5 3 AM EDT 12/15/2024 11:59 AM EDT Ronak Alvarenga PA-C LAB BLOOD ORDERABLES Final Res ult Performing Organization Address [facility] Co de Phone Number [address] [address] * (ABNORMAL) Urinalysis w/reflex Urine Culture (12/15/2024 11:52 AM EDT) COLOR Yellow Yellow [facility] CLARITY Clear [facility] GLUCOSE Negative Negative [facility] BILI Negative Negative [facility] KETONES Trace(A) Negative [facility] SPECIFIC GRAVITY 1.020 1.005 - 1.030 [facility] BLOOD Negative Negative [facility] PH 6.5 5.0 - 8.0 [facility] Protein-UA Negative Negative [facility] NITRITE Negative Negative [facility] Leukocyte esterase, ur Negative Negative [facility] Urine (Urine) 12/15/2024 11: 52 AM EDT 12/15/2024 12:09 PM EDT Ronak Alvarenga PA-C URINE ORDERABLES Final Result Performing Organization Address [facility] Co de Phone Number [address] [address] * Babesia species PCR (12/15/2024 11:48 AM EDT) Pathologist [facility] B.Microti PCR Negative Negative [facility] DPT OF LAB MED AND PAT+ B.Duncani PCR Negative Negative [facility] DPT OF LAB MED AND PAT+ B.Divergens/MO-1 PCR Negative Negative [facility] DPT OF LAB MED AND PAT+ Comment: (NOTE) ADDITIONAL INFORMATION This test was developed and its performance characteristics determined by [facility] in a manner consistent with CLIA requirements. This test has not been cleared or approved by the U.S. Food and Drug Administration. Blood 12/15/2024 11:4 8 AM EDT 12/15/2024 11:56 AM EDT Ronak Alvarenga PA-C LAB BLOOD ORDERABLES Final Res ult Performing Organization Address City/[facility]/ZIP Co de Phone Number [facility] DPT OF LAB MED AND PAT+ [address] [place] [address] * Blood Culture, Routine (12/15/2024 11:48 AM EDT) Only the most recent of2 resultswithin the time period is included. Special Requests None 12/15/2024 10:59 AM EDT [facility] BLOOD CULTURE NO GROWTH 5 DAYS 12/20/2024 12:16 PM EDT [facility] Blood (Blood) 12/15/2024 11: 48 AM EDT 12/15/2024 12:10 PM EDT Comment:BLOOD Ronak Alvarenga PA-C MICROBIOLOGY - GENERAL ORDERAB LES Final Result Performing Organization Address [facility]/ZIP Co de Phone Number [facility] [address] [place] [address] * Ehrlichia/anaplasma PCR (12/15/2024 11:48 AM EDT) ANAPLASMA PHAGOCYTO Negative Negative [facility] DPT OF LAB MED AND PAT+ EHRLICHIA CHAFFEENS Negative Negative [facility] DPT OF LAB MED AND PAT+ EHRL EWINGII/CANIS Negative Negative [facility] DPT OF LAB MED AND PAT+ EHRL MURIS-LIKE Negative Negative [facility] DPT OF LAB MED AND PAT+ Comment: (NOTE) ADDITIONAL INFORMATION This test was developed and its performance characteristics determined by [facility] in a manner consistent with CLIA requirements. This test has not been cleared or approved by the U.S. Food and Drug Administration. Blood 12/15/2024 11:4 8 AM EDT 12/15/2024 11:56 AM EDT Ronak Alvarenga PA-C LAB BLOOD ORDERABLES Final Res ult Performing Organization Address City/[facility]/ZIP Co de Phone Number [facility] DPT OF LAB MED AND PAT+ [address] [place] [address] * MALARIA/BABESIA EXAM (12/15/2024 11:48 AM EDT) Pathologist [facility] Special Requests None 12/15/2024 10:59 AM EDT [facility] MALARIA SMEAR No Malaria or Babesia observed 12/15/2024 1:02 PM EDT [facility] Blood (Blood) 12/15/2024 11: 48 AM EDT 12/15/2024 11:59 AM EDT Ronak Alvarenga PA-C NON CULTURE MICROBIOLOGY Final Result Performing Organization Address [facility] Co de Phone Number [facility] [address] [place] [address] * BABESIA SEROLOGY (12/15/2024 11:48 AM EDT) Babesia microti IgG <1:64 <1:64 titer [facility] Comment: (NOTE) ADDITIONAL INFORMATION This test was developed using an analyte specific reagent. Its performance characteristics were determined by [facility] in a manner consistent with CLIA requirements. This test has not been cleared or approved by the U.S. Food and Drug Administration. Blood (Blood) 12/15/2024 11: 48 AM EDT 12/15/2024 11:56 AM EDT us Ronak Alvarenga PA-C MICROBIOLOGY - GENERAL ORDERAB LES Final Result [facility] LAB MED/[facility] [address] [place] [address] * Sedimentation rate (ESR) (12/15/2024 10:08 AM EDT) ESR 12 0 - 20 mm/h [facility] Blood 12/15/2024 10:0 8 AM EDT 12/15/2024 10:12 AM EDT Ronak Alvarenga PA-C LAB BLOOD ORDERABLES Final Res ult Performing Organization Address [facility] Co de Phone Number [address] [address] * (ABNORMAL) C-Reactive Protein (12/15/2024 10:08 AM EDT) C REACTIVE PROTEIN 84.8(H) 0.0 - 4.0 mg/L [facility] Blood 12/15/2024 10:0 8 AM EDT 12/15/2024 10:12 AM EDT Ronak Alvarenga PA-C LAB BLOOD ORDERABLES Final Res ult Performing Organization Address [facility] Co de Phone Number [address] [address] * Troponin (12/15/2024 10:08 AM EDT) Only the most recent of2 resultswithin the time period is included. Troponin-T, HS Gen5 10 0 - 14 ng/L [facility] Blood 12/15/2024 10:0 8 AM EDT 12/15/2024 10:12 AM EDT Ronak Alvarenga PA-C LAB BLOOD ORDERABLES Final Res ult Performing Organization Address City/[facility]/ZIP Co de Phone Number [address] [place] [address] * (ABNORMAL) CBC and differential (12/15/2024 9:06 AM EDT) WBC 6.98 4.00 - 11.00 K/uL [facility] RBC 3.80(L) 4.50 - 5.90 M/uL [facility] HGB 11.3(L) 13.5 - 17.5 g/dL [facility] HCT 34.1(L) 41.0 - 53.0 % [facility] PLT 188 150 - 450 K/uL [facility] MCV 89.7 80.0 - 100.0 fL [facility] MCH 29.7 27.0 - 31.0 pg [facility] MCHC 33.1 32.0 - 36.0 g/dL [facility] RDW 14.5 11.5 - 14.5 % [facility] MPV 8.3(L) 8.4 - 12.0 fL [facility] NRBC 0.00 0.00 /100 WBCs [facility] ABSOLUTE NRBC 0.00 0.00 K/uL [facility] DIFF METHOD Auto [facility] NEUTS 68.6 48.0 - 76.0 % [facility] LYMPHS 16.0(L) 18.0 - 41.0 % [facility] MONOS 13.3(H) 4.0 - 11.0 % [facility] EOS 1.3 0.0 - 5.0 % [facility] BASOS 0.4 0.0 - 1.5 % [facility] Granulocytes, immature (%) 0.4 0.0 - 0.9 % [facility] ABSOLUTE NEUTS 4.78 1.92 - 7.60 K/uL [facility] ABSOLUTE LYMPHS 1.12 0.72 - 4.10 K/uL [facility] ABSOLUTE MONOS 0.93 0.16 - 1.10 K/uL [facility] ABSOLUTE EOS 0.09 0.00 - 0.50 K/uL [facility] ABSOLUTE BASOS 0.03 0.00 - 0.15 K/uL [facility] Granulocytes, immature 0.03 0.00 - 0.09 K/uL [facility] Blood 12/15/2024 9:06 AM EDT 12/15/2024 9:09 AM EDT Ronak Alvarenga PA-C LAB BLOOD ORDERABLES Final Res ult Performing Organization Address City/[facility]/ZIP Co de Phone Number [address] [address] * (ABNORMAL) NT-proBNP (12/15/2024 9:06 AM EDT) NT-PROBNP 726(H) 0 - 125 pg/mL [facility] Blood 12/15/2024 9:06 AM EDT 12/15/2024 9:09 AM EDT Ronak Alvarenga PA-C LAB BLOOD ORDERABLES Final Res ult Performing Organization Address City/[facility]/ZIP Co de Phone Number [address] [address] * (ABNORMAL) Basic metabolic panel (12/15/2024 9:06 AM EDT) SODIUM 132(L) 133 - 146 mmol/L [facility] CHLORIDE 97 96 - 108 mmol/L [facility] POTASSIUM 3.7 3.3 - 5.1 mmol/L [facility] Comment:Specimen slightly he molyzed, result may be falsely elevated. CO2 24 21 - 35 mmol/L [facility] BUN 9 6 - 19 mg/dL [facility] CREATININE 0.70 0.5 - 1.5 mg/dL [facility] GLUCOSE 87 70 - 99 mg/dL [facility] CALCIUM 8.9 8.4 - 10.3 mg/dL [facility] EGFR 100 >59 mL/min/1.7 3m2 [facility] Comment:Estimated glomerular filtration rate calculated using the CKD-EPI refit equation. ANION GAP 15 10 - 20 mmol/L [facility] Blood 12/15/2024 9:06 AM EDT 12/15/2024 9:09 AM EDT Ronak Alvarenga PA-C LAB BLOOD ORDERABLES Final Res ult [facility] [address] [place] [address] * XR CHEST PA AND LATERAL 2 VIEWS (12/15/2024 8:43 AM EDT) Anatomical Region Laterality Modality Chest Computed Radiogr aphy 12/15/2024 8:50 AM EDT Impressions 12/15/2024 8:51 AM EDT No acute abnormality. Narrative 12/15/2024 8:51 AM EDT XR CHEST PA AND LATERAL 2 VIEWS Referring clinician's provided indication for this [facility]: Pain COMPARISON: CT CHEST WITH CONTRAST FINDINGS: Devices/Tubes/Lines: None. Lungs: No focal consolidation or pulmonary edema. Pleura: No pleural effusion or pneumothorax. Heart/Mediastinum: Normal heart and mediastinum. Bones/Soft Tissues: Degenerative changes of the thoracic spine. Procedure Note Sheridan White MD, PhD - 12/15/2024 XR CHEST PA AND LATERAL 2 VIEWS Referring clinician's provided indication for this examination in [facility]:Pain COMPARISON: CT CHEST WITH CONTRAST FINDINGS: Devices/Tubes/Lines: None. Lungs: No focal consolidation or pulmonary edema. Pleura: No pleural effusion or pneumothorax. Heart/Mediastinum: Normal heart and mediastinum. Bones/Soft Tissues: Degenerative changes of the thoracic spine. IMPRESSION: No acute abnormality. Ronak Alvarenga PA-C IMG XR CHEST Final Result * COVID Pandemic Respiratory Viral Order (PRO) (12/15/2024 8:37 AM EDT) Test Ordered Rapid COVID, Flu has been ordered [facility] Specimen Source/Descriptio n NASOPHARYNGEAL SWAB [facility] Influenza A PCR Not Detected Not Detected [facility] Influenza B PCR Not Detected Not Detected [facility] SARS-CoV 2 (COVID-19) PCR Not Detected Not Detected [facility] Comment: SARS-CoV-2 not detected Negative results do not preclude SARS-CoV-2 infection and should not be used as the sole basis for patient management decisions. Negative results must be combined with clinical observations, patient history, and epidemiological information. Other (Nasopharyngeal swab) 12/15/2024 8:37 AM EDT 12/15/2024 8:46 AM EDT us Ronak Alvarenga PA-C BODY FLUIDS AND STOOLS ORDERAB LES Final Result [address] [address] * ECG 12-LEAD (12/15/2024 8:32 AM EDT) Only the most recent of2 resultswithin the time period is included. Ventricular Rate EKG/MIN 67 BPM [facility] Atrial Rate 67 BPM [facility] VT Interval 144 ms [facility] QRS Duration 82 ms [facility] QT Interval 400 ms [facility] QTC Interval 422 ms [facility] P [place] 49 degrees [facility] R Wave [place] -7 degrees [facility] T Wave [place] -87 degrees [facility] 12/15/2024 8:32 AM EDT 12/15/2024 10:23 AM EDT Narrative [facility] - 12/15/2024 10:23 AM EDT Normal sinus rhythm T wave abnormality, consider lateral ischemia Abnormal ECG When compared with ECG of 15-Dec-2024 06:58, No significant change was found Confirmed by Maury HERNANDEZ ([id number]) on 12/15/2024 10:23:42 AM Ronak Alvarenga PA-C ECG ORDERABLES Final Result Performing Organization Address City/[facility]/ZIP Co de Phone Number [facility] * CT Chest Outside (No Interpretation) (12/14/2024 12:00 AM EDT) Narrative SYSTEMGENERATED, DOCUMENTATION - 01/01/2025 10:10 AM EDT This study is for PACS storage only and not for interpretation. us Unknown Unknown MD SHANE OUTSIDE IMAGING W/OUT INT ERPRETATION Final Result from Last 3 Months Insurance MEDICARE PART A & B [employer] MEDICARE SUPPLEMENT MEDICARE PART A & B [employer] MEDICARE SUPPLEMENT Member Subscriber Plan / Payer ( fective 2024-) Name:Jesús Vera Relation to Subscriber:Self Name:Jesús Vera Payer ID:[id number] (NAIC) Group ID:Not on file Type:[facility] Address: [place] [phone] MEDICARE PART A & B [employer] MEDICARE SUPPLEMENT MEDICARE PART A & B [employer] MEDICARE SUPPLEMENT MEDICARE PART A & B [facility] MEDICARE SUPPLEMENT MEDICARE PART A & B FOR LIFE MEDICARE SUPPLEMENT Advance Directives For more information, please contact: [phone] (9AM - 5PM [facility], Wednesday-Wednesday) Documents on File Type Date Recorded Patient Agile Test Lead Expl anation Healthcare Proxy 12/26/2024 HEALTH CARE PROXY * Full Code (Latest Code Status on File) Date Activated Date Inactivated Comments 10/27/2024 3:42 AM Question Answer Comments Code Status Confirmed With: Patient Care Teams Milling Machine Tender Relationship Specialty Start Date End Date Raghu Contreras MD [address] [place] [address] [address] [place] [phone] PCP - General Internal Medicine 08/15/24 Vern Ospina MD [address] [place] [address] [email or web address] Hematology and Oncology 08/16/24 Additional Source Comments The information contained in this document represents components of the legal health record. It is not the complete legal health record.[facility]
--- OUTSIDE RECORDS SUMMARY | 2025-03-07 12:13 | XMS_ITS | Encounter Summary ---
Author Organization [facility] Address [address] [place] [address] Phone Care Team Providers Care Wrapper Stripper Name Role Phone Raghu Contreras MD Primary Care Provider [phone] Vern Ospina MD Unavailable Encounter Details Date Type Department Care Team (Late st Contact Info) Description 12/15/2024 Procedure Pass [facility], [facility] [address] [place] [address] Social History Tobacco Use Types Packs/Day Years [...] PM EST documented as of this encounter Functional Status * Calculated C-SSRS Risk Score (Lifetime/Recent) Answer Date of Assessment Author No Risk Indicated 12/15/2024 6:55 AM Shea Tucker RN * [place] Suicide Severity Rating Scale (Screener/Recent Self-Report) Question Answer Date of Assessment Author 1. Wish to be (Past 1 Month) No 025 6:55 AM Shea Tucker, ELVIA 2. Non-Specific Active Suici mayuri Thoughts (Past 1 Month) No 12/15/2024 6:55 AM DYLONT Mally Llamas, ELVIA 6. Suicidal Behavior (Lifetime) No 6:55 AM DYLONT Shea Llamas, ELVIA documented as of this encounter Plan of Treatment Upcoming Encounters Date Type Department Care Team (Radha Contact Info) Description 03/12/2025 9:00 AM EDT Telemedicine [facility] [address] [facility], 7th Floor, [address] [place] [address] Vern Ospina MD [address] [facility] [address], [place] [address] [email or web address] 04/23/2025 2:30 PM EST Office Visit [place] [facility] [address] [facility] 9th [place] [address] Josiah Orta MD [address] [place] [address] [email or web address] Keaton Jon MD [address] [place] [address] [email or web address] documented as of this encounter Visit Diagnoses Not on filedocumented in this encounter Additional Health Concerns Infection Onset Date Last Indicated Resolved Time CoV-Risk 12/15/2024 12/15/2024 12/26/2024 1:21 AM EDT documented as of this encounter Care Teams Wrapper Stripper Relationship Specialty Start Date End Date Raghu Contreras MD [address] [facility] [address] [place] [phone] PCP - General Internal Medicine 08/15/24 Vern Ospina MD [address] [facility] [address], [place] [address] [email or web address] Hematology and Oncology 08/16/24 documented as of this encounter Additional Source Comments The information contained in this document represents components of the legal health record. It is not the complete legal health record.[facility]
--- OUTSIDE RECORDS SUMMARY | 2025-03-07 12:13 | XMS_ITS | Encounter Summary ---
Author Organization [facility] Address [address] [facility] [address] [place] [address] Phone Care Team Providers Care Real Estate Site Analyst Name Role Phone Raghu Contreras MD Primary Care Provider [phone] Vern Ospina MD Unavailable [phone] Encounter Details Date Type Department Care Team (Late st Contact Info) Description 10/25/2024 Procedure Pass [facility], [facility] [address] [place] [address] Social History Tobacco Use Types Packs/Day Years [...] as food, clothing, or medical care? No 10/26/2024 In the past 12 months have y ou been in a relationship with a person who hurts, threatens, or tries to control you? No 10/26/2024 Are you denied basic needs s uch as food, clothing, or medical care? No 10/26/2024 In the past 12 months have y ou been in a relationship with a person who hurts, threatens, or tries to control you? No 10/26/2024 Sex and Gender Information Value Date Recorded Sex Assigned at Male 08/15/2024 2:29 PM EST Legal Sex Male 9:53 PM EDT Gender Identity Male 08/15/2024 2:29 PM EST Sexual Orientation Straight 08/15/2024 2: 29 PM EST documented as of this encounter Functional Status * Calculated C-SSRS Risk Score (Lifetime/Recent) Answer Date of Assessment Author No Risk Indicated 10/27/2024 3:52 PM EDT Serge Kan RN * [place] Suicide Severity Rating Scale (Screener/Recent Self-Report) Question Answer Date of Assessment Author 1. Wish to be (Past 1 Month) No 025 3:52 PM EDT Serge Kan RN 2. Non-Specific Active Suici mayuri Thoughts (Past 1 Month) No 10/27/2024 3:52 PM EDT Tisha Kan RN 6. Suicidal Behavior (Lifetime) No 3:52 PM EDT Serge Kan RN documented as of this encounter Plan of Treatment Upcoming Encounters Date Type Department Care Team (Late st Contact Info) Description 03/12/2025 9:00 AM EDT Telemedicine [facility] [address] [facility], 7th Floor, [address] [place] [address] Vern Ospina MD [address] [facility] [address] [place] [address] [email or web address] 04/23/2025 2:30 PM EST Office Visit [facility] [address] [facility] 9th [place] [address] Josiah Orta MD [address] [place] [address] [email or web address] Keaton Jon MD [address] [place] [address] [email or web address] documented as of this encounter Visit Diagnoses Not on filedocumented in this encounter Additional Health Concerns Infection Onset Date Last Indicated Resolved Time CoV-Risk 12/15/2024 12/15/2024 12/26/2024 1:21 AM EDT documented as of this encounter Care Teams Real Estate Site Analyst Relationship Specialty Start Date End Date Raghu Contreras MD [address] [place] [phone] PCP - General Internal Medicine 08/15/24 Vern Ospina MD [address] [facility] [address] [place] [address] [email or web address] Hematology and Oncology 08/16/24 documented as of this encounter Additional Source Comments The information contained in this document represents components of the legal health record. It is not the complete legal health record.[facility]
--- OUTSIDE RECORDS SUMMARY | 2025-03-07 12:13 | XMS_ITS | Encounter Summary ---
Author Organization [facility] Address [address] [facility] [address] [place] [address] Phone Care Team Providers Care Cook Room Supervisor Name Role Phone Raghu Contreras MD Primary Care Provider [phone] Vern Ospina MD Unavailable [phone] Encounter Details Date Type Department Care Team (Late st Contact Info) Description 12/26/2024 Procedure Pass [facility], [facility] [address] [place] [address] Social History Tobacco Use Types Packs/Day Years [...] Info) Description 03/12/2025 9:00 AM EDT Telemedicine [facility] [address] [facility], 7th Floor, [address] [place] [address] Vern Ospina MD [address] [facility] 9[place] [address] [email or web address] 04/23/2025 2:30 PM EST Office Visit [facility] [address]th [place] [address] Josiah Orta MD [address] [place] [address] [email or web address] Keaton Jon MD [address] [place] [address] [email or web address] documented as of this encounter Visit Diagnoses Not on filedocumented in this encounter Additional Health Concerns Infection Onset Date Last Indicated Resolved Time CoV-Risk 12/15/2024 12/15/2024 12/26/2024 1:21 AM EDT documented as of this encounter Care Teams Cook Room Supervisor Relationship Specialty Start Date End Date Po, Raghu Perea MD [address] [facility] [address] [place] [phone] PCP - General Internal Medicine 08/15/24 Vern Ospina MD [address] [place] [address] [address] [address] [email or web address] Hematology and Oncology 08/16/24 documented as of this encounter Additional Source Comments The information contained in this document represents components of the legal health record. It is not the complete legal health record.[facility]
--- OUTSIDE RECORDS SUMMARY | 2025-03-07 12:14 | XMS_ITS | Encounter Summary ---
Author Organization [facility] Address [address] [place] [address] [place] [address] Phone Care Team Providers Care Construction Code Administrator Name Role Phone Raghu Contreras MD Primary Care Provider [phone] Vern Ospina MD Unavailable [phone] Encounter Details Date Type Department Care Team (Late st Contact Info) Description 10/25/2024 Ophth Exam [facility] Department [address] [place] [address] Alisha Perea MD [address] [place] [address] [email or web address] Social History Tobacco Use Types Packs/Day [...] 3:52 PM EDT Serge Kan RN * [place] Suicide Severity Rating Scale (Screener/Recent Self-Report) Question Answer Date of Assessment Author 1. Wish to be (Past 1 Month) No 025 3:52 PM EDT Serge Kan, ELVIA 2. Non-Specific Active Suici mayuri Thoughts (Past 1 Month) No 10/27/2024 3:52 PM EDT Tisha Kan RN 6. Suicidal Behavior (Lifetime) No 3:52 PM EDT Serge Kan RN documented as of this encounter Plan of Treatment Upcoming Encounters Date Type Department Care Team (Late st Contact Info) Description 03/12/2025 9:[address] [facility] [address] [facility], 7th Floor, [address] [place] [address] Vern Ospina MD [address] [address] [email or web address] 04/23/2025 2:30 PM EST Office Visit [facility] [address] [facility] 9th [place] [address] Josiah Orta MD [address] [place] [address] [email or web address] Keaton Jon MD [address] [place] [address] [email or web address] documented as of this encounter Visit Diagnoses Not on filedocumented in this encounter Additional Health Concerns Infection Onset Date Last Indicated Resolved Time CoV-Risk 12/15/2024 12/15/2024 12/26/2024 1:21 AM EDT documented as of this encounter Care Teams Construction Code Administrator Relationship Specialty Start Date End Date Raghu Contreras MD [address] [place] [address] Drive [address] [place] [address] PCP - General Internal Medicine 08/15/24 Vern Ospina MD [address] [address] [email or web address] Hematology and Oncology 08/16/24 documented as of this encounter Additional Source Comments The information contained in this document represents components of the legal health record. It is not the complete legal health record.[facility]
--- OUTSIDE RECORDS SUMMARY | 2025-03-07 12:14 | XMS_ITS | Encounter Summary ---
Author Organization [facility] Address [address] [place] [address] Phone Care Team Providers Care Wellness Rn Name Role Phone Raghu Contreras MD Primary Care Provider [phone] Vern Ospina MD Unavailable [phone] Encounter Details Date Type Department Care Team (Late st Contact Info) Description 10/25/2024 Procedure Pass [facility] - MRI, [facility] [address] [place] [address] Social History Tobacco Use Types Packs/Day Years [...] 3:52 PM EDT Serge Kan RN * [place] Suicide Severity Rating Scale (Screener/Recent Self-Report) Question Answer Date of Assessment Author 1. Wish to be (Past 1 Month) No 025 3:52 PM EDT eSrge Kan RN 2. Non-Specific Active Suici mayuri Thoughts (Past 1 Month) No 10/27/2024 3:52 PM EDT Tisha Kan RN 6. Suicidal Behavior (Lifetime) No 3:52 PM EDT Serge Kan RN documented as of this encounter Plan of Treatment Upcoming Encounters Date Type Department Care Team (Late st Contact Info) Description 03/12/2025 9:00 AM EDT Telemedicine [facility] [address], 7th Floor, [address] [place] [address] Vern Ospina MD [address] [facility] [address] [place] [address] [email or web address] 04/23/2025 2:30 PM EST Office Visit [facility] Neuro [facility] [address] [facility] 9th [place] [address] Josiah Orta MD [address] [place] [address] [email or web address] Keaton Jon MD [address] [place] [address] [email or web address] documented as of this encounter Visit Diagnoses Not on filedocumented in this encounter Additional Health Concerns Infection Onset Date Last Indicated Resolved Time CoV-Risk 12/15/2024 12/15/2024 12/26/2024 1:21 AM EDT documented as of this encounter Care Teams Wellness Rn Relationship Specialty Start Date End Date Raghu Contreras MD [address] [place] [phone] PCP - General Internal Medicine 08/15/24 Vern Ospina MD [address] [facility] [address] [place] [address] [email or web address] Hematology and Oncology 08/16/24 documented as of this encounter Additional Source Comments The information contained in this document represents components of the legal health record. It is not the complete legal health record.[facility]
--- OUTSIDE RECORDS SUMMARY | 2025-03-07 12:14 | XMS_ITS | Patient Health Record ---
Author Organization [facility] Address [address] [place] [address] Care Team Providers Care Motor Patrol Operator Name Role Phone Po Raghu PERES Primary Care Provider Estrella Ewing Unavailable [phone] Allergies No Known Allergies Reason For Referral [...] Status Risk Notes Problem Colon cancer screening (917537540) Colon cancer screening (Z12.11) Active confirmed Problem [id number] Encounter for screening for malignant neoplasm of colon (Z12.11) Active confirmed Problem History of adenomatous polyp of colon (527298501) History of adenomatous polyp of colon (Z86.010) Active confirmed Problem Pre-procedure evaluation check (915791273) Encounter for other preprocedural examination (Z01.818) Active confirmed Problem Long-term current use of drug therapy (275552725) Encounter for long-term (current) use of high-risk medication (Z79.899) Active confirmed Problem [id number] Pre-procedural examination (Z01.818) Active confirmed Encounters Encounter Location Date Provider Diagnosis [facility] [address] [place] [address] 04/21/2024 Estrella Mosqueda Plan Of Treatment Future Test Test Name Order Date UPPER GI ENDOSCOPY 09/16/2012 COLONOSCOPY 01/03/2019 COLONOSCOPY 03/02/2024 Insurance Providers Payer Name Payer Address Payer Phone Subscriber Number Group Number Insured Name Patient Relationship to Insured Coverage Start Date Coverage End Date MEDICARE OF [place] [address] [place] [address] [id number] ИВАН SHELBY Self - patient is the insured [employer] [address] [place] [address] [id number] ИВАН SHELBY Self - patient is the insured Medical (General) History Medical History History ICD Code Hypertension Hyperlipidemia Denies MT,DM,CVA,Lung disease,renal dise ase Chronic right-sided abdomina l [...]
--- OUTSIDE RECORDS SUMMARY | 2025-03-07 12:14 | XMS_ITS | Encounter Summary ---
Author Organization [facility] Address [address] [place] [address] Phone Care Team Providers Care Foot Orthopedist Name Role Phone Raghu Contreras MD Primary Care Provider [phone] Vern Ospina MD Unavailable [phone] Encounter Details Date Type Department Care Team (Late st Contact Info) Description 10/27/2024 Procedure Pass [facility] Emergency Imaging, [address] [place] [address] Social History Tobacco Use Types Packs/Day Years [...] 3:52 PM EDT Serge Kan RN * [place] Suicide Severity Rating Scale (Screener/Recent Self-Report) Question [...] Info) Description 03/12/2025 9:00 AM EDT Telemedicine [facility] [address] [facility], 7th Floor, [address] [place] [address] Vern Ospina MD [address] [facility] [address] [place] [address] [email or web address] 04/23/2025 2:30 PM EST Office Visit [facility] [address] [facility] 9th [place] [address] Josiah Orta MD [address] [place] [address] [email or web address] Keaton Jon MD [address] [place] [address] [email or web address] documented as of this encounter Visit Diagnoses Not on filedocumented in this encounter Additional Health Concerns Infection Onset Date Last Indicated Resolved Time CoV-Risk 12/15/2024 12/15/2024 12/26/2024 1:21 AM EDT documented as of this encounter Care Teams Foot Orthopedist Relationship Specialty Start Date End Date Raghu Contreras MD [address] [place] [phone] PCP - General Internal Medicine 08/15/24 Vern Ospina MD [address] [facility] [address] [place] [address] [email or web address] Hematology and Oncology 08/16/24 documented as of this encounter Additional Source Comments The information contained in this document represents components of the legal health record. It is not the complete legal health record.[facility]
--- OUTSIDE RECORDS SUMMARY | 2025-03-07 12:14 | XMS_ITS | Clinical Summary ---
Author Organization [facility] Address [address] [place] [address] Phone Care Team Providers Care Oil Well Engineer Name Role Phone Unavailable Primary Care Provider Unavailabl e Encounters Date Type Department Care Team Description 12/22/2024 12:18 PM EDT - 12/22/2024 11:59 PM EDT Hospital Encounter [facility] PET Scan [address] [place] [address] Discharge Disposition: Home or Self Care from Last 3 Months Social History Tobacco Use Types Packs/Day Years Used Date Smoking Tobacco: Never Assessed Sex and Gender Information Value Date Recorded Sex Assigned at Not on file Legal Sex Male 3:44 PM EDT Gender Identity Not on file Sexual Orientation Not on file Plan of Treatment Health Maintenance Due Date Last Done Comments Cholesterol Screening (Lipid Panel) 04/05/2024 Colorectal Cancer Screening: Colonoscopy 04/05/2024 Falls Risk Assessment 04/05/2024 Hepatitis C Screening 04/05/2024 Medicare Annual Wellness Visit 04/05/2024 Social Influencers of Health Screening 04/05/2024 Depression Screening 06/14/2024 COVID-19 Vaccine (8 - Moderna risk 2023- season) 2025 02/25/2024, 03/05/2023, 04/16/2022, Additional history exists Influenza [...] on patient's age to complete this topic Procedures Procedure Name Priority Date/Time Associated Diagnosis Comments PET CT WHOLE BODY SUBSEQUENT Routine 12/22/2024 3:30 PM EDT Metastatic melanoma ([facility] V24, [facility] V28) from Last 3 Months Results * PET CT Whole Body Subsequent (12/22/2024 3:30 PM EDT) Anatomical Region Laterality Modality Body Radiographic Aracely ging 12/26/2024 4:30 AM EDT Impressions 12/26/2024 5:14 AM EDT 1. Interval resolution of cervical, thoracic and pelvic lymphadenopathy and right upper lobe pulmonary nodule 2. Interval significant decrease in FDG avid abdominal lymphadenopathy Please note: The CT was acquired at a low radiation dose settings. The images are of nondiagnostic quality and used solely for purposes of attenuation correction and slice localization for the PET scan. If a diagnostic CT study is desired it must be ordered separately. -------- FINAL REPORT -------- Dictated By: Rika Dodge Dictated Date: 12/26/2024 04:30 ET Assigned Physician: Rika Dodge Reviewed and Electronically Signed By: Rika Dodge Signed Date: 12/26/2024 05:14 ET Workstation ID: [id number] Transcribed By: Self Edit Transcribed Date: 12/26/2024 04:30 ET Narrative 12/26/2024 5:14 AM EDT INDICATION: MELANOMA OF SKIN. History of prostate cancer status post radical prostatectomy. TECHNIQUE: FDG PET-CT imaging was performed from the head through the toes in a single acquisition with data set reconstructed in axial, coronal, and sagittal planes at the computer workstation with fused data from both the PET imaging study and attenuation correction CT. The CT portion of the examination was done strictly for attenuation correction and is not a true diagnostic CT examination. DLP: 1431 mGy-cm Radiopharmaceutical: 10.6 mCi of F-18 FDG IV. Blood glucose: 80 mg/dl. COMPARISON: Comparison is made with prior PET 02/2024 as well as outside PET June [address] of the abdomen and pelvis September 2024. Correlation is made with MRI of the brain radiology report dated 10/2024. FINDINGS: HEAD AND NECK: Previously seen supraclavicular lymphadenopathy has resolved. Small bilateral supraclavicular lymph nodes without significant FDG activity. Please refer to prior brain MRI for better characterization of findings within the head. THORAX: Interval resolution of previously seen FDG avid mediastinal lymphadenopathy. No significant FDG avid thoracic lymphadenopathy. Resolution of previously seen subcentimeter nodule in the anterior right upper lobe. ABDOMEN/PELVIS: Interval decrease in FDG activity of retroperitoneal lymph nodes measuring up to SUV Max 3.9 (previously 13.2). Interval resolution of previously seen iliac lymph node. Interval decrease in right inguinal lymphadenopathy SUV max 2.2 (previously 17.9). MUSCULOSKELETAL: Heterogeneous bone marrow activity, likely physiologic. Physiologic activity along the left infraspinatus muscle. Procedure Note Rika Dodge MD - 12/26/2024 INDICATION: MELANOMA OF SKIN. History of prostate cancer status postradical prostatectomy. TECHNIQUE: FDG PET-CT imaging was performed from the head through the toesin a single acquisition with data set reconstructed in axial, coronal, andsagittal planes at the computer workstation with fused data from both thePET imaging study and attenuation correction CT. The CT portion of theexamination was done strictly for attenuation correction and is not a truediagnostic CT examination. DLP: 1431 mGy-cm Radiopharmaceutical: 10.6 mCi of F-18 FDG IV. Blood glucose: 80 mg/dl. COMPARISON: Comparison is made with prior PET 02/2024 as well as outsidePET June [address] of the abdomen and pelvis September 2024.Correlation is made with MRI of the brain radiology report dated 10/2024. FINDINGS: HEAD AND NECK: Previously seen supraclavicular lymphadenopathy hasresolved. Small bilateral supraclavicular lymph nodes without significantFDG activity. Please refer to prior brain MRI for better characterizationof findings within the head. THORAX: Interval resolution of previously seen FDG avid mediastinallymphadenopathy. No significant FDG avid thoracic lymphadenopathy. Resolution of previously seen subcentimeter nodule in the anterior rightupper lobe. ABDOMEN/PELVIS: Interval decrease in FDG activity of retroperitoneal lymphnodes measuring up to SUV Max 3.9 (previously 13.2). Interval resolutionof previously seen iliac lymph node. Interval decrease in right inguinallymphadenopathy SUV max 2.2 (previously 17.9). MUSCULOSKELETAL: Heterogeneous bone marrow activity, likely physiologic.Physiologic activity along the left infraspinatus muscle. IMPRESSION: 1. Interval resolution of cervical, thoracic and pelvic lymphadenopathyand right upper lobe pulmonary nodule 2. Interval significant decrease in FDG avid abdominal lymphadenopathy Please note: The CT was acquired at a low radiation dose settings. The images are ofnondiagnostic quality and used solely for purposes of attenuationcorrection and slice localization for the PET scan. If a diagnostic CTstudy is desired it must be ordered separately. -------- FINAL REPORT -------- Dictated By: Rika Dodge Dictated Date: 12/26/2024 04:30 ET Assigned Physician: Rika Dodge Reviewed and Electronically Signed By: Rika Dodge Signed Date: 12/26/2024 05:14 ET Workstation ID: [id number] Transcribed By: Self Edit Transcribed Date: 12/26/2024 04:30 ET Rose Marie JAMA NM PROCEDURES Final Result from Last 3 Months Insurance MEDICARE [facility]
--- OUTSIDE RECORDS SUMMARY | 2025-03-07 12:14 | XMS_ITS | Encounter Summary ---
Author Organization [facility] Address [address] [place] [address] [place] [address] Phone Care Team Providers Care Office Support Assistant Name Role Phone Raghu Contreras MD Primary Care Provider [phone] Vern Ospina MD Unavailable [phone] Encounter Details Date Type Department Care Team (Late st Contact Info) Description 10/26/2024 [place]am [facility] [place] [address] [place] [address] Alisha Perea MD [address] [place] [address] [email or web address] Social History Tobacco Use Types Packs/Day Years [...] 3:52 PM EDT Serge Kan RN * [place] Suicide Severity Rating Scale (Screener/Recent Self-Report) Question [...] Info) Description 03/12/2025 9:00 AM EDT Telemedicine [facility] [address], 7th [address], [address] [place] [address] Vern Ospina MD [address] [address] [email or web address] 04/23/2025 2:30 PM EST Office Visit [facility] [address] [facility] [facility] 9th [place] [address] Josiah Orta MD [address] [place] [address] [email or web address] Keaton Jon MD [address] [place] [address] [email or web address] documented as of this encounter Visit Diagnoses Not on filedocumented in this encounter Additional Health Concerns Infection Onset Date Last Indicated Resolved Time CoV-Risk 12/15/2024 12/15/2024 12/26/2024 1:21 AM EDT documented as of this encounter Care Teams Office Support Assistant Relationship Specialty Start Date End Date Raghu Contreras MD [address] [place] [address] Drive [address] [place] [address] PCP - General Internal Medicine 08/15/24 Vern Ospina MD [address] [address] [email or web address] Hematology and Oncology 08/16/24 documented as of this encounter Additional Source Comments The information contained in this document represents components of the legal health record. It is not the complete legal health record.[facility]
== END 2025-03-07 10:01 | disposition home or self-care (01) ==
LOC: HO.LAB 10:00
PROVIDERS: PCP Internal Medicine
DX: Z00.00 Encounter for general adult medical examination without abnormal findings (principal); C43.9 Malignant melanoma of skin, unspecified; D12.6 Benign neoplasm of colon, unspecified; M54.31 Sciatica, right side; C61 Malignant neoplasm of prostate; E66.3 Overweight; I10 Essential (primary) hypertension; Z13.21 Encounter for screening for nutritional disorder
CPT/HCPCS: 36415; 80053; 80061; 81003; 82306; 84443; 85025

== ENCOUNTER 2025-03-13 15:14 | Outpatient (AMB) | payer MEDICARE, OTHER, SELFPAY ==
--- OUTSIDE RECORDS SUMMARY | 2024-06-26 08:10 | XMS_ITS ---
Author Organization [facility] Address [address] [place] [address] Care Team Providers Care Employment Director Name Role Phone Raghu Contreras MD Primary Care Provider Estrella Ewing [facility] [phone] REASON FOR VISIT screening,hx polyps Encounters Encounter Location Date Provider Diagnosis [facility] [place] [address] [place], [place] [phone] 06/26/2024 Estrella Mosqueda Plan Of Treatment No Information Progress Notes * ИВАН SHELBYDOB:1955 ([age] yo M)Acc No.[id number]:06/26/2024 COLON WITH MAC Patient: ИВАН PINTO Provider: Danial Mosqueda MD :1955 A ge:68 Y S ex:Male Date:06/26/2024 Address:[address] [place], [place] [id number] Pcp:Raghu Contreras MD Subjective: * Chief Complaints: [...] 06/26/2024 Generated for Joshi ng/Fajusticeg/eTransmitting on: 0 03/13/2025 04:32 PM EDT
--- OUTSIDE RECORDS SUMMARY | 2025-03-12 09:00 | XMS_ITS | Encounter Summary ---
Author Organization [facility] Address [address] [place] [address] [address] [place] [address] Phone Care Team Providers Care Business Analyst Project Manager Name Role Phone Raghu Contreras MD Primary Care Provider Vern Ospina MD Unavailable [phone] Reason for Referral * MRI/CAT Scan - New Request Specialty Diagnoses / Procedures Referred By Chris ulloa Referred To Contact Radiology Diagnoses Metastatic melanoma Procedures NM PET CT Scalp to Toes Vern Ospina MD [address] [facility] [address] [place] [address] Phone: tel: fax: mailto:[email or web address] Referral ID Status Reason Start Date Expiration Date V isits Requested Visits Authorized [id number] New Request 03/12/2025 1 1 Encounter Details Date Type Department Care Team (Late st Contact Info) Description 03/12/2025 9:00 AM EDT Telemedicine [facility] [place] [place] [facility] [address] [facility], 7th Floor, [address] [place] [address] Vern Ospina MD [address] [facility] [address] [place] [address] [email or web address] Metastatic melanoma (Primary Dx) Social History Tobacco Use Types Packs/Day Years [...] PM EST documented as of this encounter Progress Notes * Vern Ospina MD - 03/12/2025 9:00 AM EDT Images from the original note were not included. [facility] [address] [place] [address], [address] [place] [address] P [phone] F [phone] Diagnosis: Cancer Staging Metastatic melanoma Staging form: Melanoma Of The Skin, AJCC 8th Edition - Clinical stage from 12/27/2024: Stage IV (rcT0, cNX, pM1d) - Unsigned Oncology History Overview Note In December 2023, Mr. Vera noted a mass in his right groin while in the shower. Next steps includedevaluation by his PCP, Dr. Contreras, and a surgeon. A biopsy was performed on 02/08/24 which was consistent with melanoma (reportedly [place] 1 positive, HMB45+, SOX10+, PRAME+). PET scan on 03/02/24 showed multiple sites of FDG-avid adenopathy including bulky disease in right inguinal, right external and internal iliac, para-aortic retroperitoneal, and mediastinal. Additionally, there were findings concerning for bony involvement at L4, L5, S1, and S2. Brain MRI reportedly showed no evidence of metastatic disease. He received three cycles of ipilimumab/nivolumab (03/31/24, 04/21/24, 05/09/24). In mid-May he developed headache, nausea, and fever and was admitted to [facility]. 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 He was treated with intermittent dose steroids (maximum 40 mg daily)and slowly tapered over approximately six months. Three to four days after taper completed, he developed nausea, vomiting, and was SOB (? Aspiration). He was hypoxic in the ED, according to patient and his brother O2 sat was 92%, and also had diarrhea. A repeat LP showed ongoing protein and WBC elevation, and he was started on high doses steroids (100 mg po daily, which is 1 mg/kg). Infectious etiologies of CSF findings were again ruled out. He was discharged to rehab (on or around 08/05/24) andthen home from rehab on 08/11/24. He commenced encorafenib and binimentinb after our visit in Early August 2024. On 10/20/24, he awoke with vision loss in the upper portion of his right eye. 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 Unfortunately, the vision loss in his right eye became total. His encorafenib and binimetinib was held beginning 10/20/24. On 12/12/24, he resumed single-agent encorafenib 300 mg daily. Three days later, he developed full body aches and was evaluated in [facility] ED and treated with 10 day course of antibioitics (for possible Lyme disease) and 5 day course of dexamethasone. He has felt much better since. He was seen by Dr. Chaudhary from [facility] radiation oncology and plans have been made for whole brain radiation to start on 01/31/25. However, at the time of his planning imaging, his tumorsreduced in size and thus RT was deferred at the time. Metastatic melanoma 08/17/2024 Initial Diagnosis Metastatic melanoma ?Interval History: Mr. Vera returns following a three week interval. He denies headaches, chest pain, dyspnea, cough, abdominal pain, nausea, vomiting, diarrhea, rash. He has been constipated. He also states he has developed vitiligo on his hands. He has also noticed some fatigue, hair loss, and soreness on the balls of his feet more regularly than the heels. This is worse if he spends more time walking around. ? REVIEW OF SYSTEMS: Review of Systems Constitutional: Negative for fatigue. Eyes: Positive for visual disturbance (right-sided blindness). Respiratory: Negative for cough and shortness of breath. Cardiovascular: Negative for chest pain and leg swelling. Gastrointestinal: Negative for abdominal pain, constipation, diarrhea, nausea and vomiting. Musculoskeletal: Positive for arthralgias. Skin: Positive for rash (plantar skin thickening and soreness). Vitiligo on hands Neurological: Negative for headaches. Hematological: Negative for adenopathy. Physical Exam: ECOG performance status 0. General: Well appearing and in no apparent distress. Neuro: Alert and oriented times three. Speech fluent. There is no gross motor deficits. Data: MRI brain (03/04/25): Interval decrease in the size and enhancement of multiple enhancing lesions, with decreased vasogenic edema, likely due to treatment. Possible new focus of enhancement in the right caudate nucleus head MRI brain (01/10/25): Multiple new hemorrhagic metastases compared to prior MRI from 10/26/24, the largest in the right inferior frontal gyrus. These lesions show corresponding blood product on recent CT. There is no clearprogression of metastatic disease between the CT (12/15/2024) and today's study. Decreased size of the previously seen hematomas in the right superior frontal gyrus and right parietal lobe CT head (12/15/24): Increased hemorrhagic metastases throughout the cerebrum with surrounding vasogenic edema. No midline shift or evidence of herniation PET/CT (12/22/24): Interval resolution of cervical, thoracic and pelvic lymphadenopathy and right upper lobe pulmonarynodule Interval significant decrease in FDG avid abdominal lymphadenopathy Impression: Jesús Vera is a 69 y.o. male with Stage IV, BRAF mutant melanoma here for follow up. His case is complicated for several reasons. 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 Second, he appears to havedeveloped irMeningitis after his third dose of ipi/nivo. 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 Fourth, it is possible that his recurrence was related to early steroids use, even though it was unavoidable, and that doing our best to limit steroid exposure would be ideal. 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 He is now on single- agent encorafenib. His staging PET/CT from December looks great, buthe has ongoing disease in the brain. There is evidence of disease regression from late December to this week. As such, our plan will be to hold off on radiation therapy presently, and repeat MRI in ~ 2 months. He is due for PET/CT in ~2-3 weeks. I will arrange My recommendations are as follows: Agree with BRAF targeted therapy, encorafenib 300 mg daily Continue prednisone 15 mg daily FU with me after repeat PET in March Repeat brain MRI in April I answered all of his questions to his apparent satisfaction. He was encouraged to call in the interim with any additional questions or concerns. Problem List Items Addressed This Visit Hematology and Oncology Metastatic melanoma - Primary Relevant Orders NM PET CT Scalp to Toes ? ? documented in this encounter Plan of Treatment Upcoming Encounters Date Type Department Care Team (Late st Contact Info) Description 04/23/2025 2:30 PM EST Office Visit [facility] [address] [facility] 9th [place] [address] Josiah Orta MD [address] [place] [address] [email or web address] Jon MD [address] [place] [phone] [email or web address] Scheduled Orders Name Type Priority Associated Diagnoses Orde r Schedule NM PET CT Scalp to Toes Imaging Routine Metastatic melanoma Expected: 04/11/2025, Expires: 06/11/2025 documented as of this encounter Visit Diagnoses Diagnosis Metastatic melanoma- Primary Melanoma of skin, site unspecified documented in this encounter Care Teams Business Analyst Project Manager Relationship Specialty Start Date End Date Raghu Contreras MD [address] [place] [phone] PCP - General Internal Medicine 08/15/24 Vern Ospina MD [address] [facility] [address] [address] [email or web address] Hematology and Oncology 08/16/24 documented as of this encounter Additional Source Comments The information contained in this document represents components of the legal health record. It is not the complete legal health record.[facility]
--- NOTE | 2025-03-13 15:20 | MHC.PC.OV ---
Vital Signs 03/13/25 15:21 Height 5 ft 10 in Weight 211 lb BMI 30.3 BP 140/70 H Blood Pressure Location Lt brachial Position Sitting Pulse 93 Pulse Source Pulse Oximeter Temp 97.5 F Temp Source Temporal Artery Scan Pulse Oximetry (%) 97 Oxygen Delivery Method Room Air Intake Visit Reasons: hyponatremia and HTN Allergies No Known Allergies Allergy (Verified 03/13/25 15:24) Medication List - Last Reconciled 03/13/25 by Raghu Contreras MD ascorbic acid (vitamin C) 1 g PO DAILY rxeiyzq-hbaqtyubzapju-pxzcuhyg 250-250-65 mg (Excedrin Migraine) 1 tab PO Q4-6H PRN atorvastatin 10 mg PO BEDTIME cyclobenzaprine 10 mg PO TID PRN diphenhydramine HCl (Benadryl Allergy) 25 mg PO DAILY PRN enalapril maleate 10 mg PO DAILY encorafenib 300 mg (4 x 75 mg) PO DAILY cmbkbqnmezfj-tbvd-upuwn acid 18-400 mg-mcg (Centrum) 1 tab PO DAILY omega-3 fatty acids 1,000 mg PO DAILY omeprazole 20 mg PO DAILY@0630 peg 030-cmwfajpvjmjp-coqjhcal 1-0.2-0.2 % (Artificial Tears (nn686-djiluehjr-vybawymg)) 2 drps ophthalmic-Right Q4H PRN prednisone 15 mg PO DAILY psyllium husk (Fiber (psyllium husk)) 0.4 grams PO BEDTIME sulfamethoxazole-trimethoprim 800-160 mg (Bactrim DS) 1 tab PO Q OTHER DAY Tobacco use date assessed: 03/13/25 Fall risk assessment: No Falls in past year Last assessed Fall Risk: 03/13/25 Dental Screening Dental Screen Date: 03/13/25 Did you have a dental visit in the last 12 months?: Yes Did you have a dental problem in the last 6 months where you did not have access to dental care?: No Was dental information given to patient?: Patient has dentist [facility] Medical History Metastatic melanoma Metastasis to brain Aseptic meningitis Obesity (BMI 30.0-34.9) PSA elevation Overweight (BMI 25.0-29.9) Finger fracture, right Nephrolithiasis Osteoarthritis Hypercholesterolemia Hypertension Surgical History Melanoma History of tonsillectomy Family History Mother Bladder cancer Father Prostate cancer Social History Household Members: None Housing: House Do you presently have visiting nurse or other home services: No Alcohol intake: former Patient Tobacco Use Status: Never used Tobacco e-Cigarette/Vaping Use: Never Used Second Hand Smoke Exposure: No Advance Directives Date on File: 09/22/22 service: Yes Current occupational status: employed Sexual orientation: Straight/Heterosexual Gender identity: Male Cognitive needs: No Hearing needs: No Vision needs: Yes Questionnaire PHQ-9 Over the last 2 weeks, how often have you been bothered by any of the following problems? 1. Little interest or pleasure in doing things: not at all 2. Feeling down, depressed, or hopeless: not at all 3. Trouble falling or staying asleep, or sleeping too much: not at all 4. Feeling tired or having little energy: not at all 5. Poor appetite or overeating: not at all 6. Feeling bad about yourself - or that you are a failure or have let yourself or your family down: not at all 7. Trouble concentrating on things, such as reading the newspaper or watching television: not at all 8. Moving or speaking so slowly that other people could have noticed. Or the opposite - being so fidgety or restless that you have been moving around a lot more than usual: not at all 9. Thoughts that you would be better off or of hurting yourself in some way: not at all Total score: 0 Source: Developed by Drs. Quirino Coats, Radha Reed, Bruno Reeves and colleagues, with an educational marleen from [employer]. Thrive Questionnaire Date Thrive assessed: 11/20/24 I am a: Patient What is your living situation today?: I have a steady place to live Within the past 12 months, did the food you bought not last and you didn't have the money to get more?: Never true Within the past 12 months, did you worry whether your food would run out before you got money to buy more?: Never true Do you have trouble paying for medicines?: No Do you have trouble getting transportation to medical appointments?: No Do you have trouble paying your heating and electricity bill?: No Do you have trouble taking care of your child, family member or friend?: No Do you have trouble with day-to-day activities such as bathing, preparing meals, shopping, managing finances, etc.?: No Are you currently unemployed and looking for a job?: No Are you interested in more education?: No Please select the resources that you would like help with: None Currently or been in a relationship where the following occur: No concerns reported THRIVE Score: 0 AUDIT C Alcohol Use Questionnaire (AUDIT-C) 1. How often do you have a drink containing alcohol?: Never 3. How often do you have six or more drinks on one occasion?: Never Total Score: 0 TIANNA-7 AMB Questionnaire TIANNA-7 Date TIANNA - 7 assessed: 11/20/24 Feeling nervous, anxious, or on edge: 0 = Not at all Not being able to stop or control worryin = Not at all Worrying too much about different things: 0 = Not at all Trouble relaxin = Not at all Being so restless that it is hard to sit still: 0 = Not at all Becoming easily annoyed or irritable: 0 = Not at all Feeling afraid as if something awful might happen: 0 = Not at all Total TIANNA-7 score (0-4 normal; 5-9 mild; 10-14 moderate; 15-21 severe): 0 Source: Developed by Drs. Quirino Coats, Radha Reed, Bruno Reeves and colleagues, with an educational marleen from [employer]. Physical exam (Primary Care) Vital Signs: Last Vital Signs Temp 97.5 F 03/13/25 15:21 Pulse 93 03/13/25 15:21 BP 140/70 H 03/13/25 15:21 Pulse Ox 97 03/13/25 15:21 Oxygen Delivery Method Room Air 03/13/25 15:21 BMI result Body Mass Index 30.3 Tobacco/Smoking Status: Tobacco use Status Tobacco use date assessed 03/13/25 03/13/25 15:26 Patient Tobacco Use Status Never used Tobacco 03/13/25 15:26 e-Cigarette/Vaping Use Never Used 09/30/25 15:26 PHQ-9: PHQ-9 Score PHQ-9: Total score 0 03/13/25 15:59 Thrive Assessment: Date of Thrive Assessment Date Thrive assessed 11/20/24 03/13/25 15:26 Currently or been in a relationship where the following occur: No concerns reported Const General: alert; No acute distress Eyes Conjunctivae: conjunctivae normal Resp Auscultation: clear to auscultation bilaterally Cardio Rate: regular rate Rhythm: regular rhythm GI Inspection: Yes normal to inspection Extrem General: Yes normal to inspection and No edema Coding Level of Care Code Est Pt Level 4 (26865) Complex EM visit Add On G2211 Diagnoses Essential hypertension I10 Hypertension type: essential hypertension Hypercholesterolemia E78.00 Prostate cancer C61 Melanoma C43.9 Assessment & Plan Assessment & Plan (1) Hypertension: Code(s): I10 - Essential (primary) hypertension Category: Medical Qualifiers: Hypertension type: essential hypertension Qualified Code(s): I10 - Essential (primary) hypertension Plan: Continue with blood pressure medication. Decrease salt intake and exercise on enalapril 10 mg once a day (2) Hypercholesterolemia: Code(s): E78.00 - Pure hypercholesterolemia, unspecified Category: Medical Plan: Avoid fried foods, chicken skin, eggs, butter margarine, pastries and meat. Be it pork or beef they have a lot of cholesterol atorvastatin 10 mg at bedtime LDL goal of less than 130 and triglyceride of less than 150 (3) Prostate cancer: Comment: March 2022, RALP 09/2022 Code(s): C61 - Malignant neoplasm of prostate Category: Medical Plan: Continue to monitor (4) Melanoma: Comment: Right thigh mass January 2024 biopsy March 2024 Soft tissue, right anterior upper thigh, biopsy: Melanoma, presumed metastatic. Code(s): C43.9 - Malignant melanoma of skin, unspecified Category: Surgical Plan: Active treatment presently of melanoma with multiple problems along the way Plan History of Present Illness The patient is a 69-year-old male presenting with the management of metastatic melanoma and associated complications. The patient has a history of metastatic melanoma with a mass noted on the right groin, confirmed by biopsy in January 2024, showing multiple sites of involvement including right inguinal, right external and internal iliac, right para-aortic, retroperitoneal, and medial styloid regions, with concerns for bony involvement but negative brain involvement. 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 The patient continues on encorafenib with a reduced dosage, and recent MRI results indicate improvement with shrinking lesions. The patient has a history of hypertension, managed with enalapril 10 mg daily, and hypercholesterolemia, managed with atorvastatin 10 mg at bedtime, with an LDL goal of less than 130 mg/dL and triglycerides less than 150 mg/dL. The patient also has a history of prostate cancer and tubular adenoma of the colon, with the last colonoscopy in February 2019. The patient experienced transient atrial fibrillation last seen in November 2024 and is being followed up by hematology oncology. The patient has anemia, with normal electrolytes, renal function, blood sugar, and liver function, but elevated triglycerides at 133 mg/dL. Health Maintenance - Vaccination: Discussed flu shot administration despite ongoing antibiotic use, as it is not a live vaccine. Social History Review of Systems - Neurological: Reports monocular blindness of the right eye. - Musculoskeletal: Reports body aches affecting multiple joints including ankles, knees, hips, back, shoulders, and elbows. - Cardiovascular: Denies chest pain or palpitations. - General: Reports no swelling except for slight swelling on one side. Physical Exam - Cardiovascular: Blood pressure measured at 140 mmHg systolic. - General: No swelling observed, except for slight swelling on one side. Results - Labs: Anemia noted in blood work from February 2024. - Labs: Normal electrolytes, renal function, blood sugar, and liver function. - Labs: Elevated triglycerides at 133 mg/dL. Plan Patient was informed and verbally consented to the use of an ambient scribe for clinic note documentation during this visit. 1. Metastatic Melanoma The patient is undergoing active treatment for metastatic melanoma, with a noted response to chemotherapy, although there is oligo progressive disease of the brain. The patient developed meningitis after the third dose of chemotherapy and monocular blindness of the right eye, potentially related to binimetinib, which was subsequently discontinued. The patient continues on encorafenib with a reduced dosage, and recent MRI results indicate improvement with shrinking lesions. 2. Hypertension Hypertension is managed with enalapril 10 mg daily, and the patient has stopped metoprolol due to low blood pressure readings. 3. Hypercholesterolemia Hypercholesterolemia is managed with atorvastatin 10 mg at bedtime, with an LDL goal of less than 130 mg/dL and triglycerides less than 150 mg/dL. 4. Anemia Anemia was noted in the last blood work, with normal electrolytes, renal function, blood sugar, and liver function, but elevated triglycerides at 133 mg/dL. Discussion Notes During the visit, we discussed the ongoing management of metastatic melanoma, including the response to chemotherapy and the development of oligo progressive disease of the brain. We reviewed the side effects experienced, such as meningitis and monocular blindness, and the decision to discontinue binimetinib. The patient continues on encorafenib with a reduced dosage, and recent MRI results indicate improvement with shrinking lesions. Patient Instructions - Continue taking enalapril 10 mg daily for hypertension management. - Take atorvastatin 10 mg at bedtime to manage cholesterol levels. - Monitor blood pressure regularly and report any significant changes. - Continue with encorafenib as prescribed and report any new symptoms. - Schedule a follow-up appointment in three months.
[2025-03-13 15:21] VITALS: BP 140/70; PULSE 93; TEMP 36.4; O2SAT 97; BMI 30.3
--- OUTSIDE RECORDS SUMMARY | 2025-03-13 16:33 | XMS_ITS | Clinical Summary ---
Author Organization [facility] Address [address] [place] [address] Phone Care Team Providers Care Wax Molder Name Role Phone Unavailable Primary Care Provider Unavailabl e Encounters Date Type Department Care Team Description 12/22/2024 12:18 PM EDT - 12/22/2024 11:59 PM EDT Hospital Encounter [facility] PET Scan [address] [place] [address] Discharge Disposition: Home or Self [...] Health Maintenance Due Date Last Done Comments Colorectal Cancer Screening: Colonoscopy 1955 Cholesterol Screening (Lipid Panel) 04/05/2024 Falls Risk Assessment 04/05/2024 Hepatitis C [...] Routine 12/22/2024 3:30 PM EDT Metastatic melanoma ([facility] V24, [facility] V28) from Last 3 Months Results * [...] Signed Date: 12/26/2024 05:14 ET Workstation ID: [id number] Transcribed By: Self Edit Transcribed Date: 12/26/2024 [...] Signed Date: 12/26/2024 05:14 ET Workstation ID: [id number] Transcribed By: Self Edit Transcribed Date: 12/26/2024 04:30 ET Rose Marie JAMA NM PROCEDURES Final Result from Last 3 Months Insurance MEDICARE LOCATED WITHIN [facility]
--- OUTSIDE RECORDS SUMMARY | 2025-03-13 16:33 | XMS_ITS | Encounter Summary ---
Author Organization [facility] Address [address] [place] [address] Phone Care Team Providers Care Polysomnographer Name Role Phone Raghu Contreras MD Primary Care Provider [phone] Vern Ospina MD Unavailable [phone] Encounter Details Date Type Department Care Team (Late st Contact Info) Description 02/23/2025 Orders Only [facility] [address] 7th [address], [address] [place] [address] Provider, MD Genna Counts include 234 beds at the [facility] [place] [address] Social History Tobacco Use Types [...] Description 04/23/2025 2:30 PM EST Office Visit [facility] [address] [facility] 9th [place] [address] Josiah Orta MD [address] [place] [address] [email or web address] Keaton Jon MD [address] [place] [address] [email or web address] documented as of this encounter Procedures Procedure Name Priority Date/Time Associated Diagnosis Comments OUTSIDE IMAGING Routine 02/23/2025 8:12 AM EDT documented in this encounter Results * Outside Imaging Report Only (02/23/2025 8:12 AM EDT) us Historical Provider MD SHANE XR CHEST Final Res ult documented in this encounter Visit Diagnoses Not on filedocumented in this encounter Care Teams Polysomnographer Relationship Specialty Start Date End Date Po, Raghu Perea MD [address] [place] [address] Drive [address] [place] [address] PCP - General Internal Medicine 08/15/24 Vern Ospina MD [address] [place] [address] [email or web address] Hematology and Oncology 08/16/24 documented as of this encounter Additional Source Comments The information contained in this document represents components of the legal health record. It is not the complete legal health record.[facility]
--- OUTSIDE RECORDS SUMMARY | 2025-03-13 16:33 | XMS_ITS | Encounter Summary ---
Author Organization [facility] Address [address] [facility] [address] [place] [address] Phone Care Team Providers Care Clinical Molecular Geneticist Name Role Phone Raghu Contreras MD Primary Care Provider [phone] Vern Ospina MD Unavailable [phone] Encounter Details Date Type Department Care Team (Late st Contact Info) Description 10/25/2024 Procedure Pass [facility] - [facility], [facility] [address] [place] [address] Social History Tobacco Use Types Packs/Day Years [...] 3:52 PM EDT Serge Kan RN * [place] Suicide Severity Rating Scale (Screener/Recent Self-Report) Question [...] Description 04/23/2025 2:30 PM EST Office Visit [facility] [address] [facility] 9th [place] [address] Josiah Orta MD [address] [place] [address] [email or web address] Keaton Jon MD [address] [place] [address] [email or web address] documented as of this encounter Visit Diagnoses Not on filedocumented in this encounter Additional Health Concerns Infection Onset Date Last Indicated Resolved Time CoV-Risk 12/15/2024 12/15/2024 12/26/2024 1:21 AM EDT documented as of this encounter Care Teams Clinical Molecular Geneticist Relationship Specialty Start Date End Date eBn, Raghu Perea MD [address] [place] [address] Drive [address] [place] [phone] PCP - General Internal Medicine 08/15/24 Vern Ospina MD [address] [facility] [address] [place] [address] [email or web address] Hematology and Oncology 08/16/24 documented as of this encounter Additional Source Comments The information contained in this document represents components of the legal health record. It is not the complete legal health record.[facility]
--- OUTSIDE RECORDS SUMMARY | 2025-03-13 16:33 | XMS_ITS | Encounter Summary ---
Author Organization [facility] Address [address] [place] [address] Phone Care Team Providers Care Attending Anesthesiologist Name Role Phone Raghu Contreras MD Primary Care Provider [phone] Vern Ospina MD Unavailable [phone] Encounter Details Date Type Department Care Team (Late st Contact Info) Description 10/27/2024 Procedure Pass [facility] Emergency Imaging, [address], Floor 1 [place] [address] Social History Tobacco Use Types Packs/Day Years [...] 3:52 PM EDT Serge Kan RN * [place] Suicide Severity Rating Scale (Screener/Recent Self-Report) Question [...] Description 04/23/2025 2:30 PM EST Office Visit [facility] [address] [facility] 9th [place] [address] Josiah Orta MD [address] [place] [address] [email or web address] Keaton Jon MD [address] [place] [address] Renetta@[email or web address] documented as of this encounter Visit Diagnoses Not on filedocumented in this encounter Additional Health Concerns Infection Onset Date Last Indicated Resolved Time CoV-Risk 12/15/2024 12/15/2024 12/26/2024 1:21 AM EDT documented as of this encounter Care Teams Attending Anesthesiologist Relationship Specialty Start Date End Date Po, Raghu Perea MD [address] [place] [address] [address] [place] [phone] PCP - General Internal Medicine 08/15/24 Vern Ospina MD [address] [place] [address] [address] [place] [address] [email or web address] Hematology and Oncology 08/16/24 documented as of this encounter Additional Source Comments The information contained in this document represents components of the legal health record. It is not the complete legal health record.[facility]
--- OUTSIDE RECORDS SUMMARY | 2025-03-13 16:33 | XMS_ITS | Encounter Summary ---
Author Organization [facility] Address [address] [facility] [address] [place] [address] Phone Care Team Providers Care Poultry Husbandry Worker Name Role Phone Raghu Contreras MD Primary Care Provider [phone] Vern Ospina MD Unavailable [phone] Encounter Details Date Type Department Care Team (Late st Contact Info) Description 12/26/2024 Procedure Pass [facility], [facility] [address] [place] [address] Social History Tobacco Use Types Packs/Day Years [...] Description 04/23/2025 2:30 PM EST Office Visit [facility] [address] [facility] 9th [place] [address] Josiah Orta MD [address] [place] [address] [email or web address] Keaton Jon MD [address] [place] [phone] Renetta@[email or web address] documented as of this encounter Visit Diagnoses Not on filedocumented in this encounter Additional Health Concerns Infection Onset Date Last Indicated Resolved Time CoV-Risk 12/15/2024 12/15/2024 12/26/2024 1:21 AM EDT documented as of this encounter Care Teams Poultry Husbandry Worker Relationship Specialty Start Date End Date Raghu Contreras MD [address] [place] [address] [address] [place] [phone] PCP - General Internal Medicine 08/15/24 Vern Ospina MD [address] [place] [address] [email or web address] Hematology and Oncology 08/16/24 documented as of this encounter Additional Source Comments The information contained in this document represents components of the legal health record. It is not the complete legal health record.[facility]
--- OUTSIDE RECORDS SUMMARY | 2025-03-13 16:33 | XMS_ITS | Encounter Summary ---
Author Organization [facility] Address [address] [facility] [address] [place] [address] Phone Care Team Providers Care Vet Assistant Name Role Phone Raghu Contreras MD Primary Care Provider [phone] Vern Ospina MD Unavailable [phone] Encounter Details Date Type Department Care Team (Late st Contact Info) Description 12/15/2024 Procedure Pass [facility] - [facility] [address] [place] [address] Social History Tobacco Use Types Packs/Day Years [...] 12/15/2024 6:55 AM Shea Tucker RN * [place] Suicide Severity Rating Scale (Screener/Recent Self-Report) Question [...] Department Care Team (Radha Contact Info) Description 04/23/2025 2:30 PM EST Office Visit [facility] [address] [facility] 9th [place] [address] Josiah Orta MD [address] [place] [address] [email or web address] Keaton Jon MD [address] [place] [address] [email or web address] documented as of this encounter Visit Diagnoses Not on filedocumented in this encounter Additional Health Concerns Infection Onset Date Last Indicated Resolved Time CoV-Risk 12/15/2024 12/15/2024 12/26/2024 1:21 AM EDT documented as of this encounter Care Teams Vet Assistant Relationship Specialty Start Date End Date Raghu Contreras MD [address] [place] [address] Drive [address] [place] [phone] PCP - General Internal Medicine 08/15/24 Vern Ospina MD [address] [facility] [address] [place] [address] [email or web address] Hematology and Oncology 08/16/24 documented as of this encounter Additional Source Comments The information contained in this document represents components of the legal health record. It is not the complete legal health record.[facility]
--- OUTSIDE RECORDS SUMMARY | 2025-03-13 16:33 | XMS_ITS | Encounter Summary ---
Author Organization [facility] Address [address] [facility] [address] [place] [address] Phone Care Team Providers Care Tow Motor Mechanic Name Role Phone Raghu Contreras MD Primary Care Provider [phone] Vern Ospina MD Unavailable [phone] Encounter Details Date Type Department Care Team (Late st Contact Info) Description 02/26/2025 Procedure Pass [facility], [facility] [address] [place] [address] Social History Tobacco Use Types Packs/Day Years [...] Description 04/23/2025 2:30 PM EST Office Visit [facility] [address] [facility] 9th [place] [address] Josiah rOta MD [address] [place] [address] [email or web address] Keaton Jon MD [address] [place] [address] Renetta@[email or web address] documented as of this encounter Visit Diagnoses Not on filedocumented in this encounter Care Teams Tow Motor Mechanic Relationship Specialty Start Date End Date Raghu Contreras MD [address] [place] [phone] PCP - General Internal Medicine 08/15/24 Vern Ospina MD [address] [place] [address] [email or web address] Hematology and Oncology 08/16/24 documented as of this encounter Additional Source Comments The information contained in this document represents components of the legal health record. It is not the complete legal health record.[facility]
--- OUTSIDE RECORDS SUMMARY | 2025-03-13 16:33 | XMS_ITS | Encounter Summary ---
Author Organization [facility] Address [address] [place] [address] Phone Care Team Providers Care Tool Repairer Name Role Phone Raghu Contreras MD Primary Care Provider [phone] Vern Ospina MD Unavailable [phone] Encounter Details Date Type Department Care Team (Late st Contact Info) Description 02/26/[address] [facility] [address] [facility], 7th Floor, [address] [place] [address] Vern Ospina MD [address] [facility] [address] [place] [address] [email or web address] Social History Tobacco Use Types Packs/Day [...] Description 04/23/2025 2:30 PM EST Office [facility] [address] [facility] 9th [place] [address] Josiah Orta MD [address] [place] [address] [email or web address] Keaton Jon MD [address] [place] [address] Renetta@[email or web address] documented as of this encounter Visit Diagnoses Not on filedocumented in this encounter Care Teams Tool Repairer Relationship Specialty Start Date End Date Raghu Contreras MD [address] [place] [address] [place] [phone] PCP - General Internal Medicine 08/15/24 Vern Ospina MD [address] [place] [address] [email or web address] Hematology and Oncology 08/16/24 documented as of this encounter Additional Source Comments The information contained in this document represents components of the legal health record. It is not the complete legal health record.[facility]
--- OUTSIDE RECORDS SUMMARY | 2025-03-13 16:33 | XMS_ITS | Patient Health Record ---
Author Organization [facility] Address [address] [place] [address] Care Team Providers Care Tow Truck Operator Name Role Phone Po Raghu PERES Primary Care Provider Estrella Ewing Unavailable [phone] Allergies No Known Allergies Reason For Referral [...] Status Risk Notes Problem Colon cancer screening (576000517) Colon cancer screening (Z12.11) Active confirmed Problem [id number] Encounter for screening for malignant neoplasm of colon (Z12.11) Active confirmed Problem History of adenomatous polyp of colon (543270837) History of adenomatous polyp of colon (Z86.010) Active confirmed Problem Pre-procedure evaluation check (992741770) Encounter for other preprocedural examination (Z01.818) Active confirmed Problem Long-term current use of drug therapy (007754055) Encounter for long-term (current) use of high-risk medication (Z79.899) Active confirmed Problem [id number] Pre-procedural examination (Z01.818) Active confirmed Encounters Encounter Location Date Provider Diagnosis [facility] [address] [place] [address] 04/21/2024 Estrella Mosqueda Plan Of Treatment Future Test Test Name Order Date UPPER GI ENDOSCOPY 09/16/2012 COLONOSCOPY 01/03/2019 COLONOSCOPY 03/02/2024 Insurance Providers Payer Name Payer Address Payer Phone Subscriber Number Group Number Insured Name Patient Relationship to Insured Coverage Start Date Coverage End Date MEDICARE OF [place] [address] [place] [address] [id number] ИВАН SHELBY Self - patient is the insured [email or web address] [address] [place] [id number] ИВАН SHELBY Self - patient is the insured Medical (General) History Medical History History ICD Code Hypertension Hyperlipidemia Denies VA,DM,CVA,Lung disease,renal dise ase Chronic right-sided abdomina l [...]
--- OUTSIDE RECORDS SUMMARY | 2025-03-13 16:33 | XMS_ITS | Clinical Summary ---
Author Organization [facility] Address [address] [place] [address] Phone Care Team Providers Care Retail Key Holder Name Role Phone Raghu Contreras MD Primary Care Provider [phone] Vern Ospina MD Unavailable [phone] Allergies Active Allergy Reactions Criticality Noted Date Comments Docusate Sodium Rash Low 10/25/2024 Reports no longer allergic takes without issues Medications atorvastatin (LIPITOR) 10 MG tablet Take 10 mg by mouth daily. 05/20/20 23 Active enalapril (VASOTEC) 10 MG tablet Take 10 mg by mouth daily. 05/20/20 23 Active ondansetron (ZOFRAN) 4 MG tablet Take 4 mg by mouth daily. Active omega 0-lpo-cfm-fish oil 1,000 (120-180) mg Cap Take 1 [...] Encounters Date Type Department Care Team Description 03/12/2025 9:00 AM EDT Telemedicine [facility] [address], 7th Floor, [address] [place] [address] Vern Ospina MD Metastatic melanoma (Primary Dx) 03/04/2025 1:57 PM EDT - 03/04/2025 11:59 PM EDT Hospital Encounter [address] [address] Vern Ospina MD Discharge Disposition: Home or Self Care 02/26/2025 Procedure Pass [address] [address] 02/26/2025 Orders Only [facility] [address], 7th Floor, [address] [place] [address] Vern Ospina MD 02/23/2025 11:40 AM EDT Telemedicine [facility] [address] [place] [address], 7th Floor, [address] [place] [address] Vern Ospina MD Metastatic melanoma (Primary Dx) 02/23/2025 Orders Only [facility] [address] [place] [address], 7th Floor, [address] [place] [address] ProviderGenna MD 01/17/2025 3:20 PM EDT Telemedicine [facility] [address] [place] [address], 7th Floor, [address] [place] [address] Vern Ospina MD Metastatic melanoma (Primary Dx) 01/17/2025 11:00 AM EDT Office Visit [facility] Cancer Center At 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 Rad Onc [address] [place] [address] [facility] MD, MSc [facility] 01/17/2025 Documentation [facility] Cancer Center At [facility] Rad Onc [address] [place] [address] Tiffanie Anaya MA 01/10/2025 8:08 AM EDT - 01/10/2025 11:59 PM EDT Hospital Encounter [facility] [address] [place] [address] Leo Chaudhary MD, MSc Discharge Disposition: Home or Self Care 01/01/2025 3:00 PM EDT Office Visit [facility] [address]th [place] [address] Josiah Orta MD Cestari, Dean M, MD Vision loss (Primary Dx); Metastatic melanoma; Optic neuropathy, right; Optic neuritis, right 01/01/2025 Ancillary Orders [facility],Outside Imaging [address] [place] [address] Unknown, Gosia, 12/27/2024 1:40 PM EDT Office Visit [facility] [address], 7th Floor, [address] [place] [address] Vern Ospina MD Metastatic melanoma (Primary Dx) 12/26/2024 2:00 PM EDT Office Visit [facility] Cancer Center At 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 Emergency [address] [place] [address] Salbador Godinez MD Discharge Disposition: Home or Self Care 12/15/2024 Procedure Pass [facility], Ct Scan - [facility] [address] [place] [address] 12/14/2024 - 12/14/2024 11:59 PM EDT Hospital Encounter [facility],Outside Imaging [address] [place] [address] Unknown, Unknown, Discharge Disposition: Home or Self Care from [...] Description 04/23/2025 2:30 PM EST Office Visit [facility] [address] [facility] 9th [place] [address] Josiah rOta MD [address] [place] [address] [email or web address] Keaton Jon MD [address] [place] [address] [email or web address] Health Maintenance Due Date Last Done Comments [...] clinician's provided indication for this examination in [facility]: *Melanoma, assess treatment response TECHNIQUE: MRI [...] indication for this examination in Epic: * Brain mass or lesion; Metastatic melanoma [...] Deviation (OS) - Left Eye -0.26 dB HARMONY Anatomical Region Laterality Modality Head Visual Field Narrative 01/05/2025 2:09 PM EDT Mean Deviation: -0.26 dB dB. Foveal threshold: Normal. Findings: Normal. Keaton Jon MD OPHTHALMOLOGY IMAGING Final Re sult * CT HEAD WITHOUT CONTRAST (12/15/2024 1:55 PM EDT) MGB IMG DIRECTOR OF ARCHIVES COMMENT Multiple hemorrhagic metastases, increased from prior. [facility] Anatomical Region Laterality Modality Head Computed Tomogra phy 12/15/2024 1:57 PM EDT Impressions 12/15/2024 2:44 PM EDT Increased hemorrhagic metastases throughout the cerebrum with surrounding vasogenic edema. No midline shift or evidence of herniation. A clinically significant result was initiated on 12/15/2024 2:07 PM, Message ID [id number]. ATTESTATION: I, Kim Goodman as teaching physician, [...] clinician's provided indication for this examination in [facility]: *Headache, chronic, new features or increased frequency [...] was initiated on 12/15/2024 2:07 PM, MessageID [id number]. ATTESTATION: I, Kim Goodman as teaching physician, have reviewed theimages for this case and if necessary edited the report originally createdby Clara Milligan. Ronak Alvarenga PA-C IMG CT HEAD/NECK Final Result * Lyme Screen with Reflex to Immunoblot, Blood (12/15/2024 11:53 AM EDT) Lyme AB IgG Negative Negative [facility] Lyme AB IgM Negative Negative [facility] Blood 12/15/2024 11:5 3 AM EDT 12/15/2024 11:59 AM EDT Ronak Alvarenga PA-C LAB BLOOD ORDERABLES Final Res ult Performing Organization Address [facility] de Phone Number [address] [address] * (ABNORMAL) Urinalysis w/reflex Urine Culture (12/15/2024 11:52 AM EDT) COLOR Yellow Yellow [facility] CLARITY Clear [facility] GLUCOSE Negative Negative [facility] BILI Negative Negative [facility] KETONES Trace(A) Negative [facility] SPECIFIC GRAVITY 1.020 1.005 - 1.030 [facility] BLOOD Negative Negative [facility] PH 6.5 5.0 - 8.0 [facility] Protein-UA Negative Negative [facility] NITRITE Negative Negative [facility] Leukocyte esterase, ur Negative Negative [facility] Urine (Urine) 12/15/2024 11: 52 AM EDT 12/15/2024 12:09 PM EDT Ronak Alvarenga PA-C URINE ORDERABLES Final Result Performing Organization Address [facility] de Phone Number [address] [address] * Babesia species PCR (12/15/2024 11:48 AM EDT) B.Microti PCR Negative Negative [facility] DPT OF LAB MED AND PAT+ B.Duncani PCR Negative Negative [facility] DPT OF LAB MED AND PAT+ B.Divergens/MO-1 PCR Negative Negative [facility] DPT OF LAB MED AND PAT+ Comment: (NOTE) ADDITIONAL INFORMATION This test was developed and its performance characteristics determined by [facility] in a manner consistent with CLIA requirements. This test has not been cleared or approved by the U.S. Food and Drug Administration. Blood 12/15/2024 11:4 8 AM EDT 12/15/2024 11:56 AM EDT Ronak Alvarenga PA-C LAB BLOOD ORDERABLES Final Res ult Performing Organization Address City/[facility]/ZIP Co de Phone Number [facility] DPT OF LAB MED AND PAT+ [address] [place] [address] * Blood Culture, Routine (12/15/2024 11:48 AM EDT) Only the most recent of2 resultswithin the time period is included. Pathologist [facility] Special Requests None 12/15/2024 10:59 AM EDT [facility] BLOOD CULTURE NO GROWTH 5 DAYS 12/20/2024 12:16 PM EDT [facility] Blood (Blood) 12/15/2024 11: 48 AM EDT 12/15/2024 12:10 PM EDT Comment:BLOOD Ronak Alvarenga PA-C MICROBIOLOGY - GENERAL ORDERAB LES Final Result Performing Organization Address [facility] Co de Phone Number [facility] [address] [place] [address] * Ehrlichia/anaplasma PCR (12/15/2024 11:48 AM EDT) ANAPLASMA PHAGOCYTO Negative Negative [facility] DPT OF LAB MED AND PAT+ EHRLICHIA CHAFFEENS Negative Negative [facility] DPT OF LAB MED AND PAT+ EHRL EWINGII/CANIS Negative Negative [facility] DPT OF LAB MED AND PAT+ EHRL MURIS-LIKE Negative Negative [facility] DPT OF LAB MED AND PAT+ Comment: (NOTE) ADDITIONAL INFORMATION This test was developed and its performance characteristics determined by [facility] in a manner consistent with CLIA requirements. This test has not been cleared or approved by the U.S. Food and Drug Administration. Blood 12/15/2024 11:4 8 AM EDT 12/15/2024 11:56 AM EDT Ronak Alvarenga PA-C LAB BLOOD ORDERABLES Final Res ult Performing Organization Address City/[facility]/ZIP Co de Phone Number [facility] DPT OF LAB MED AND PAT+ [address] [place] [address] * MALARIA/BABESIA EXAM (12/15/2024 11:48 AM EDT) Pathologist [facility] Special Requests None 12/15/2024 10:59 AM EDT [facility] MALARIA SMEAR No Malaria or Babesia observed 12/15/2024 1:02 PM EDT [facility] Blood (Blood) 12/15/2024 11: 48 AM EDT 12/15/2024 11:59 AM EDT Ronak Alvarenga PA-C NON CULTURE MICROBIOLOGY Final Result Performing Organization Address [facility] de Phone Number [facility] [address] [place] [address] * BABESIA SEROLOGY (12/15/2024 11:48 AM EDT) [facility] Babesia microti IgG <1:64 <1:64 titer [facility] LAB MED/PATH [facility] [place] Comment: (NOTE) ADDITIONAL INFORMATION This test was developed using an analyte specific reagent. Its performance characteristics were determined by [facility] in a manner consistent with CLIA requirements. This test has not been cleared or approved by the U.S. Food and Drug Administration. Blood (Blood) 12/15/2024 11: 48 AM EDT 12/15/2024 11:56 AM EDT Ronak Alvarenga PA-C MICROBIOLOGY - GENERAL ORDERAB LES Final Result Performing Organization Address [facility]/ZIP Co de Phone Number [facility] MED/PATH [facility] [address] [place] [address] * Sedimentation rate (ESR) (12/15/2024 10:08 AM EDT) ESR 12 0 - 20 mm/h [facility] Blood 12/15/2024 10:0 8 AM EDT 12/15/2024 10:12 AM EDT Ronak Alvarenga PA-C LAB BLOOD ORDERABLES Final Res ult Performing Organization Address City/[facility]/ZIP Co de Phone Number [address] [address] * (ABNORMAL) C-Reactive Protein (12/15/2024 10:08 AM EDT) C REACTIVE PROTEIN 84.8(H) 0.0 - 4.0 mg/L [facility] Blood 12/15/2024 10:0 8 AM EDT 12/15/2024 10:12 AM EDT Ronak Alvarenga PA-C LAB BLOOD ORDERABLES Final Res ult Performing Organization Address [facility] Co de Phone Number [address] [address] * Troponin (12/15/2024 10:08 AM EDT) Only the most recent of2 resultswithin the time period is included. Troponin-T, HS Gen5 10 0 - 14 ng/L [facility] Blood 12/15/2024 10:0 8 AM EDT 12/15/2024 10:12 AM EDT Ronak Alvarenga PA-C LAB BLOOD ORDERABLES Final Res ult Performing Organization Address City/[facility]/ZIP Co de Phone Number [address] [address] * (ABNORMAL) CBC and differential (12/15/2024 9:06 AM EDT) WBC 6.98 4.00 - 11.00 K/uL [facility] RBC 3.80(L) 4.50 - 5.90 M/uL [facility] HGB 11.3(L) 13.5 - 17.5 g/dL [facility] HCT 34.1(L) 41.0 - 53.0 % [facility] PLT 188 150 - 450 K/uL [facility] MCV 89.7 80.0 - 100.0 fL [facility] MCH 29.7 27.0 - 31.0 pg [facility] MCHC 33.1 32.0 - 36.0 g/dL [facility] RDW 14.5 11.5 - 14.5 % [facility] MPV 8.3(L) 8.4 - 12.0 fL [facility] NRBC 0.00 0.00 /100 WBCs [facility] ABSOLUTE NRBC 0.00 0.00 K/uL [facility] DIFF METHOD Auto [facility] NEUTS 68.6 48.0 - 76.0 % [facility] LYMPHS 16.0(L) 18.0 - 41.0 % [facility] MONOS 13.3(H) 4.0 - 11.0 % [facility] EOS 1.3 0.0 - 5.0 % [facility] BASOS 0.4 0.0 - 1.5 % [facility] Granulocytes, immature (%) 0.4 0.0 - 0.9 % [facility] ABSOLUTE NEUTS 4.78 1.92 - 7.60 K/uL [facility] ABSOLUTE LYMPHS 1.12 0.72 - 4.10 K/uL [facility] ABSOLUTE MONOS 0.93 0.16 - 1.10 K/uL [facility] ABSOLUTE EOS 0.09 0.00 - 0.50 K/uL [facility] ABSOLUTE BASOS 0.03 0.00 - 0.15 K/uL [facility] Granulocytes, immature 0.03 0.00 - 0.09 K/uL [facility] Blood 12/15/2024 9:06 AM EDT 12/15/2024 9:09 AM EDT Ronak Alvarenga PA-C LAB BLOOD ORDERABLES Final Res ult Performing Organization Address City/[facility]/ZIP Co de Phone Number [address] [address] * (ABNORMAL) NT-proBNP (12/15/2024 9:06 AM EDT) NT-PROBNP 726(H) 0 - 125 pg/mL [facility] Blood 12/15/2024 9:06 AM EDT 12/15/2024 9:09 AM EDT Ronak Alvarenga PA-C LAB BLOOD ORDERABLES Final Res ult Performing Organization Address [facility] Co de Phone Number [address] [address] * (ABNORMAL) Basic metabolic panel (12/15/2024 9:06 AM EDT) SODIUM 132(L) 133 - 146 mmol/L [facility] CHLORIDE 97 96 - 108 mmol/L [facility] POTASSIUM 3.7 3.3 - 5.1 mmol/L [facility] Comment:Specimen slightly he molyzed, result may be falsely elevated. CO2 24 21 - 35 mmol/L [facility] BUN 9 6 - 19 mg/dL [facility] CREATININE 0.70 0.5 - 1.5 mg/dL [facility] GLUCOSE 87 70 - 99 mg/dL [facility] CALCIUM 8.9 8.4 - 10.3 mg/dL [facility] EGFR 100 >59 mL/min/1.7 3m2 [facility] Comment:Estimated glomerular filtration rate calculated using the CKD-EPI refit equation. ANION GAP 15 10 - 20 mmol/L [facility] Blood 12/15/2024 9:06 AM EDT 12/15/2024 9:09 AM EDT Ronak Alvarenga PA-C LAB BLOOD ORDERABLES Final Res ult Performing Organization Address City/[facility]/ZIP Co de Phone Number [address] [place] [address] * XR CHEST PA AND LATERAL 2 VIEWS (12/15/2024 8:43 AM EDT) Anatomical Region Laterality Modality Chest Computed Radiogr aphy 12/15/2024 8:50 AM EDT Impressions 12/15/2024 8:51 AM EDT No acute abnormality. Narrative 12/15/2024 8:51 AM EDT XR CHEST PA AND LATERAL 2 VIEWS Referring clinician's provided indication for this examination in [facility]: Pain COMPARISON: CT CHEST WITH CONTRAST FINDINGS: Devices/Tubes/Lines: None. Lungs: No focal consolidation or pulmonary edema. Pleura: No pleural effusion or pneumothorax. Heart/Mediastinum: Normal heart and mediastinum. Bones/Soft Tissues: Degenerative changes of the thoracic spine. Procedure Note Sheridan White MD, PhD - 12/15/2024 XR CHEST PA AND LATERAL 2 VIEWS Referring clinician's provided indication for this examination in [facility]:Pain COMPARISON: CT CHEST WITH CONTRAST FINDINGS: Devices/Tubes/Lines: None. Lungs: No focal consolidation or pulmonary edema. Pleura: No pleural effusion or pneumothorax. Heart/Mediastinum: Normal heart and mediastinum. Bones/Soft Tissues: Degenerative changes of the thoracic spine. IMPRESSION: No acute abnormality. Ronak Alvarenga PA-C IM XR CHEST Final Result * COVID Pandemic Respiratory Viral Order (PRO) (12/15/2024 8:37 AM EDT) Test Ordered Rapid COVID, Flu has been ordered [facility] Specimen Source/Descriptio n NASOPHARYNGEAL SWAB [facility] Influenza A PCR Not Detected Not Detected [facility] Influenza B PCR Not Detected Not Detected [facility] SARS-CoV 2 (COVID-19) PCR Not Detected Not Detected [facility] Comment: SARS-CoV-2 not detected Negative results do not preclude SARS-CoV-2 infection and should not be used as the sole basis for patient management decisions. Negative results must be combined with clinical observations, patient history, and epidemiological information. Other (Nasopharyngeal swab) 12/15/2024 8:37 AM EDT 12/15/2024 8:46 AM EDT Ronak Alvarenga PA-C BODY FLUIDS AND STOOLS ORDERAB LES Final Result [address] [address] * ECG 12-LEAD (12/15/2024 8:32 AM EDT) Only the most recent of2 resultswithin the time period is included. Ventricular Rate EKG/MIN 67 BPM [facility] Atrial Rate 67 BPM [facility] AK Interval 144 ms [facility] QRS Duration 82 ms [facility] QT Interval 400 ms [facility] QTC Interval 422 ms [facility] P [place] 49 degrees [facility] R Wave [place] -7 degrees [facility] T Wave [place] -87 degrees [facility] 12/15/2024 8:32 AM EDT 12/15/2024 10:23 AM EDT Narrative [facility] - 12/15/2024 10:23 AM EDT Normal sinus rhythm T wave abnormality, consider lateral ischemia Abnormal ECG When compared with ECG of 15-Dec-2024 06:58, No significant change was found Confirmed by Maury HERNANDEZ ([id number]) on 12/15/2024 10:23:42 AM Ronak Alvarenga PA-C ECG ORDERABLES Final Result Performing Organization Address City/[facility] Co de Phone Number [facility] * CT Chest Outside (No Interpretation) (12/14/2024 12:00 AM EDT) Narrative SYSTEMGENERATED, DOCUMENTATION - 01/01/2025 10:10 AM EDT This study is for PACS storage only and not for interpretation. Unknown Unknown MD SHANE OUTSIDE IMAGING W/OUT INT ERPRETATION Final Result from Last 3 Months Insurance MEDICARE PART A & B [employer] MEDICARE SUPP[facility]MENT [facility] Address: [address] [address] MEDICARE PART A & B [employer] MEDICARE SUPP[facility]MENT [facility] Address: [address] [address] MEDICARE PART A & B [employer] MEDICARE SUPP[facility]MENT [facility] Address: [address] [address] MEDICARE PART A & B [employer] MEDICARE [facility]PP[facility]MENT [facility] Address: [address] [address] MEDICARE PART A & B [employer] MEDICARE [facility]MENT [facility] Address: [address] [address] MEDICARE PART A & B [employer] MEDICARE SUPPLEMENT Advance Directives For more information, please contact: [phone] (9AM - 5PM [facility], Wednesday-Wednesday) Documents on File Type Date Recorded Patient Payroll Technician Expl anation Healthcare Proxy 12/26/2024 HEALTH CARE PROXY * Full Code (Latest Code Status on File) Date Activated Date Inactivated Comments 10/27/2024 3:42 AM Question Answer Comments Code Status Confirmed With: Patient Care Teams Retail Key Holder Relationship Specialty Start Date End Date Raghu Contreras MD [address] [place] [address] [address] [place] [phone] PCP - General Internal Medicine 08/15/24 Vern Ospina MD [address] [place] [id number] [email or web address] Hematology and Oncology 08/16/24 Additional Source Comments The information contained in this document represents components of the legal health record. It is not the complete legal health record.[facility]
--- OUTSIDE RECORDS SUMMARY | 2025-03-13 16:33 | XMS_ITS | Encounter Summary ---
Author Organization [facility] Address [address] [place] [address] Phone Care Team Providers Care Applications Coordinator Name Role Phone Raghu Contreras MD Primary Care Provider [phone] Vern Ospina MD Unavailable [phone] Encounter Details Date Type Department Care Team (Late st Contact Info) Description 10/25/2024 Procedure Pass [facility] - MRI, [facility] [address] [place] [address] Social History Tobacco Use Types Packs/Day Years [...] 3:52 PM EDT Serge Kan RN * Longs Suicide Severity Rating Scale (Screener/Recent Self-Report) Question [...] Description 04/23/2025 2:30 PM EST Office Visit [facility] [address] [facility] 9th [address] [address] Josiah Orta MD [address] [address] [email or web address] Jon MD [address] [place] [address] [email or web address] documented as of this encounter Visit Diagnoses Not on filedocumented in this encounter Additional Health Concerns Infection Onset Date Last Indicated Resolved Time CoV-Risk 12/15/2024 12/15/2024 12/26/2024 1:21 AM EDT documented as of this encounter Care Teams Applications Coordinator Relationship Specialty Start Date End Date Ben, Raghu Perea MD [address] [place] [address] [address] [place] [phone] PCP - General Internal Medicine 08/15/24 Vern Ospina MD [address] [facility] Y[place] 9E [address] [email or web address] Hematology and Oncology 08/16/24 documented as of this encounter Additional Source Comments The information contained in this document represents components of the legal health record. It is not the complete legal health record.[facility]
--- OUTSIDE RECORDS SUMMARY | 2025-03-13 16:33 | XMS_ITS | Encounter Summary ---
Author Organization [facility] Address [address] [place] [address] [place] [id number] Phone Care Team Providers Care Television Cable Installer Name Role Phone Raghu Contreras MD Primary Care Provider [phone] Vern Ospina MD Unavailable [phone] Encounter Details Date Type Department Care Team (Late st Contact Info) Description 10/25/[address] [facility] [address] [place] [address] Alisha Perea MD [address] [place] [address] [email or web address] Social History Tobacco Use Types [...] 3:52 PM EDT Serge Kan RN * [place] Suicide Severity Rating Scale (Screener/Recent Self-Report) Question [...] Description 04/23/2025 2:30 PM EST Office Visit [facility] [address] [facility] [address]th [place] [address] Josiah Orta MD [address] [place] [address] [email or web address] Keaton Jon MD [address] [place] [address] [email or web address] documented as of this encounter Visit Diagnoses Not on filedocumented in this encounter Additional Health Concerns Infection Onset Date Last Indicated Resolved Time CoV-Risk 12/15/2024 12/15/2024 12/26/2024 1:21 AM EDT documented as of this encounter Care Teams Television Cable Installer Relationship Specialty Start Date End Date Po, Raghu Perea MD [address] [place] [phone] PCP - General Internal Medicine 08/15/24 Vern Ospina MD [address] [place] [address] [address] [address] [email or web address] Hematology and Oncology 08/16/24 documented as of this encounter Additional Source Comments The information contained in this document represents components of the legal health record. It is not the complete legal health record.[facility]
== END 2025-03-13 16:15 | disposition home or self-care (01) ==
LOC: HO.HMCH 15:14
PROVIDERS: PCP Internal Medicine; Visit Provider Internal Medicine
DX: I10 Essential (primary) hypertension (principal); E78.00 Pure hypercholesterolemia, unspecified; C61 Malignant neoplasm of prostate; C43.9 Malignant melanoma of skin, unspecified

== ENCOUNTER → 2025-03-13 15:14 | Outpatient (BNVA) | payer MEDICARE, OTHER, SELFPAY | PROVIDERS: PCP Internal Medicine; Visit Provider Internal Medicine | DX: I10 Essential (primary) hypertension (principal); E78.00 Pure hypercholesterolemia, unspecified; C61 Malignant neoplasm of prostate; C43.9 Malignant melanoma of skin, unspecified; H54.61 Unqualified visual loss, right eye, normal vision left eye; I48.91 Unspecified atrial fibrillation; D64.9 Anemia, unspecified | CPT/HCPCS: 96127; 99212 ==